=== PATIENT | female | born 1930 | race Caucasian/White ===

== ENCOUNTER 2016-10-18 11:16 | Observation (INO) | payer OTHER ==
[2016-10-18] VITALS (10 sets, daily range): BP systolic 151–202; BP diastolic 74–101; PULSE 63–94; RESP 14–26; TEMP 97.5–99.5; O2SAT 95–99
[~2016-10-18] VITALS: Ht 165.1 cm; Wt 83.0 kg
[~2016-10-18 11:16] MED LIST: EFFE37.5 PO; HUMA100I SQ; HYDR25TA35 PO; LANTINJ SQ; LEVIMERE SQ; LISI-363 PO; METO50TA PO; ULTR50TA PO; XANA0.5T PO
[2016-10-18] MEDS ORDERED: TETANUS/DIPHTHERIA TOXOID ADULT 0.5 ML VIAL IM ONE (11:45)
[2016-10-18] MEDS ORDERED: ACETAMINOPHEN 325 MG TAB PO ONE (12:00)
[2016-10-18 12:10] LABS: AUTOMATED NEUTROPHIL # 6.8 TH/MM3 (1.8-7.7); BASOPHIL % 0.5 % (0.0-2.0); EOSINOPHIL # 0.1 TH/MM3 (0-0.4); EOSINOPHIL % 1.5 % (0.0-4.0); HEMATOCRIT 36.8 % (35.0-46.0); HEMO FLAGS DIFF FINAL; LYMPH % 9.9 % (9.0-44.0); LYMPHOCYTE # 0.8 TH/MM3 (1.0-4.8); MEAN CELL VOLUME 88.1 FL (80.0-100.0); MEAN CORPUSCULAR HEMOGLOBIN 29.3 PG (27.0-34.0); MEAN CORPUSCULAR HGB CONC 33.2 % (32.0-36.0); MONO % 9.2 % (0.0-8.0); NEUT % 78.9 % (16.0-70.0); PLATELET COUNT 177 TH/MM3 (150-450); RED BLOOD COUNT 4.17 MIL/MM3 (4.00-5.30); RED CELL DISTRIBUTION WIDTH 14.7 % (11.6-17.2); WHITE BLOOD COUNT 8.6 TH/MM3 (4.0-11.0)
[2016-10-18 12:19] LABS: APTT (PATIENT) 25.9 SEC (24.3-30.1); PROTHROMBIN TIME - PATIENT 10.5 SEC (9.8-11.6)
--- NOTE | 2016-10-18 12:33 | RADRPT ---
EXAM DATE/TIME: 10/18/2016 12:09 [facility] COMPARISON: PELVIS AP ONLY, January 13, 2015, 12:08. INDICATIONS : Fell this morning. MEDICAL HISTORY : None. SURGICAL HISTORY : None. ENCOUNTER: Initial ACUITY: 1 day PAIN SCORE: 0/10 LOCATION: Bilateral pelvis FINDINGS: A single frontal view of the pelvis demonstrates no evidence of fracture. The bony pelvic ring is in tact. Bony mineralization is normal. The soft tissues are intact. CONCLUSION: Unremarkable examination of the pelvis. Prominent arthritis of both hips. Juan Camejo MD on October 18, 2016 at 12:31 Board Certified Radiologist. This report was verified electronically.
[2016-10-18 12:47] LABS: ALT (GPT) 26 U/L (10-53)
--- NOTE | 2016-10-18 12:47 | RADRPT ---
EXAM DATE/TIME: 10/18/2016 12:28 [facility] COMPARISON: No previous studies available for comparison. INDICATIONS : Fall. RADIATION DOSE: 56.35 CTDIvol (mGy) MEDICAL HISTORY : Hypertension. Carcinoma, rectal. Cardiovascular disease SURGICAL HISTORY : Cholecystectomy. Appendectomy.Hysterectomy. ENCOUNTER: Initial ACUITY: 1 day PAIN SCALE: 0/10 LOCATION: cranial TECHNIQUE: Multiple contiguous axial images were obtained of the head. Using automated exposure control and adj ustment of the mA and/or kV according to patient size, radiation dose was kept as low as reasonably a chievable to obtain optimal diagnostic quality images. DICOM format image data is available electro nically for review and comparison. FINDINGS: CEREBRUM: The ventricles are normal for age. No evidence of midline shift, mass lesion, hemorrhage or acute in farction. No extra-axial fluid collections are seen. POSTERIOR FOSSA: The cerebellum and brainstem are intact. The 4th ventricle is midline. The cerebellopontine angle i s unremarkable. EXTRACRANIAL: The visualized portion of the orbits is intact. SKULL: The calvaria is intact. No evidence of skull fracture. CONCLUSION: Normal examination. Juan Camejo MD on October 18, 2016 at 12:45 Board Certified Radiologist. This report was verified electronically.
[2016-10-18 12:48] LABS: ANION GAP 8 MEQ/L (5-15); AST (GOT) 36 U/L (15-37); BICARBONATE 25.2 MEQ/L (21.0-32.0); BLOOD UREA NITROGEN 43 MG/DL (7-18); CHLORIDE 105 MEQ/L (98-107); GLOMERULAR FILTRATION RATE 35 ML/MIN (>89); MAGNESIUM 2.1 MG/DL (1.5-2.5); POTASSIUM 4.5 MEQ/L (3.5-5.1); SODIUM (NA) 138 MEQ/L (136-145)
--- NOTE | 2016-10-18 12:48 | RADRPT ---
EXAM DATE/TIME: 10/18/2016 12:15 [facility] COMPARISON: No previous studies available for comparison. INDICATIONS : Wrist pain. MEDICAL HISTORY : None. SURGICAL HISTORY : None. ENCOUNTER: Initial ACUITY: 1 day PAIN SCORE: 10/10 LOCATION: Right wrist FINDINGS: Four view examination of the right wrist demonstrates there is mild osteoarthritis of first carpometa carpal joint. There is no acute fracture. There is atherosclerotic disease. Distal radius is intac t. CONCLUSION: Osteoarthritis without acute fracture. Juan Camejo MD on October 18, 2016 at 12:36 Board Certified Radiologist. This report was verified electronically.
--- NOTE | 2016-10-18 12:51 | RADRPT ---
EXAM DATE/TIME: 10/18/2016 12:23 [facility] COMPARISON: CHEST SINGLE AP, January 13, 2015, 12:10. INDICATIONS : Fell this morning. MEDICAL HISTORY : diabetes, high blood pressure SURGICAL HISTORY : coronary artery stents ENCOUNTER: Initial ACUITY: 1 day PAIN SCORE: 0/10 LOCATION: Bilateral chest FINDINGS: A single view of the chest demonstrates the lungs to be symmetrically aerated without evidence of mas s, infiltrate or effusion. The cardiomediastinal contours are unremarkable. Osseous structures are intact. CONCLUSION: No acute disease. Kenji Mcnair MD on October 18, 2016 at 12:50 Board Certified Radiologist. This report was verified electronically.
[2016-10-18 12:57] LABS: ALKALINE PHOSPHATASE 80 U/L (45-117); TOTAL BILIRUBIN ADULT 0.3 MG/DL (0.2-1.0)
[2016-10-18] MEDS ORDERED: SODIUM CHLOR 0.9% 1000 ML INJ 1,000 ML IV SCH (12:57)
[2016-10-18 13:17] LABS: BLOOD, URINE NEG (NEG); GLUCOSE,URINE 300 mg/dL (NEG); KETONE, URINE NEG (NEG); MUCUS URINE FEW /lpf (OCC); NITRITE,URINE NEG (NEG); SQUAMOUS EPITHELIAL CELL URINE <1 /hpf (0-5); URINE COLOR LIGHT-YELLOW (YELLW/STRAW)
[2016-10-18 13:18] LABS: COMMENT (UR) CATH-CULT NOT IND; CULTURE IF INDICATED CATH CULTURE NOT IND
--- NOTE | 2016-10-18 13:23 | PD ---
HPI Chief Complaint: Fall Time Seen by Provider: 13:16 Travel History International Travel<30 days: No Contact w/Intl Traveler<30days: No Traveled to known affect area: No History of Present Illness HPI 86-year-old female that presents to the ED for evaluation of fall. Patient had a fall possibly this morning or last night. Patient is not really sure how she fell. She was not able to get up on her own and unclear how long she was on the floor. A friend of hers went to her house and was able to get her in the bed and she called the ambulance. Per friend as well as the ambulance she was somewhat altered and she continued to talk about his mother asked if she was still present. She also didn't seem to know where she was at. She does appear to be slightly altered but she is able to answer questions very well to me. She does ask about her mother on occasion. Her only complaint is of right arm pain. She does have bruising and swelling. Friend and patient herself tells me that she's following a couple times before and she always braces the arm. She is up-to-date with her vaccinations. She follows with Dr. Carbone and actually has some help at home but per friend this is the first time she's been altered and she's never seen her like this before. She is always very sharp and talkative. She is concerned. She has no family in the area as her son is currently in [place] visiting a family member. She states that her pain is 7 out of 10. She also complains of dry mouth. She has not taken any of her medications today and she does have a history of diabetes. Unclear head injury or LOC as patient does not really know how she fell. Per friend she does have a week left knee for which she is following Dr. Johnston for possible surgery. [facility] Past Medical History Arthritis: No Asthma: No Autoimmune Disease: No Blood Disorders: No Anxiety: Yes Depression: Yes Heart Rhythm Problems: No Cancer: Yes (RECTAL; IN REMISSION OF SPRING 2011) Cardiovascular Problems: Yes High Cholesterol: Yes Chemotherapy: Yes (january 2009) Chest Pain: Yes Congestive Heart Failure: No COPD: No Cerebrovascular Accident: No Diabetes: Yes Patient Takes Glucophage: No Diminished Hearing: No Endocrine: No GERD: No Glaucoma: No Genitourinary: No Headaches: No Hepatitis: No Hiatal Hernia: No Hypertension: Yes Immune Disorder: No Implanted Vascular Access Dvce: No Kidney Stones: No Musculoskeletal: No Neurologic: No Psychiatric: Yes Reproductive: No Respiratory: Yes Migraines: No Myocardial Infarction: No Radiation Therapy: Yes (LAST 02/08) Renal Failure: No Seizures: No Sickle Cell Disease: No Sleep Apnea: No Thyroid Disease: No Ulcer: No Menopausal: Yes : 1 Para: 1 Past Surgical History Abdominal Surgery: Yes (HYSTERECTOMY) AICD: No Appendectomy: Yes Arteriovenous Shunt: No Body Medical Devices: [employer] [place] Cardiac Surgery: Yes (STENT PLACEMENT) Cholecystectomy: Yes Coronary Stent: Yes (X4, LAST ONE 2004) Ear Surgery: No Endocrine Surgery: No Eye Surgery: No Genitourinary Surgery: No Gynecologic Surgery: No Hysterectomy: Yes Insulin Pump: No Joint Replacement: No Neurologic Surgery: No Oral Surgery: No Pacemaker: No Thoracic Surgery: No Tonsillectomy: Yes Other Surgery: Yes Social History Alcohol Use: No Tobacco Use: No Substance Use: No Allergies-Medications (Allergen,Severity, Reaction): Coded Allergies: Penicillin (Verified Allergy, Severe, UNKNOWN, 09/17/15) Sulfa (Verified Allergy, Severe, UNKNOWN, 09/17/15) Reported Meds & Prescriptions Reported Meds & Active Scripts Active Reported Magox 400 (Magnesium Oxide) 400 Mg Tablet 400 Mg PO DAILY Baclofen 10 Mg Tab 10 Mg PO DAILY PRN Amlodipine (Amlodipine Besylate) 10 Mg Tab 10 Mg PO DAILY Venlafaxine ER 24 HR (Venlafaxine HCl) 37.5 Mg Cap 37.5 Mg PO DAILY Tramadol (Tramadol HCl) 50 Mg Tab 50 Mg PO Q6H PRN Lisinopril 20 Mg Tab 20 Mg PO DAILY Lantus Solostar Pen Inj (Insulin Glargine) 300 Unit/3 Ml Pen 40 Units SQ HS Humalog Inj (Insulin Human Lispro) 1,000 Unit/10 Ml Vial Unknown Dose SQ TIDAC SLIDING SCALE Hydralazine HCl 25 Mg Tablet 25 Mg PO TID Xanax (Alprazolam) 0.25 Mg Tab 0.25 Mg PO TID PRN Review of Systems Except as stated in HPI: all other systems reviewed are Neg Physical Exam Narrative GENERAL: SKIN: Warm and dry. Patient does have significant bruising to the right arm as well as a skin tear to the left arm. Skin there is about 3 cm and not actively bleeding. HEAD: Atraumatic. Normocephalic. EYES: Pupils equal and round 4mms reactive to light and accomodation. No scleral icterus. No injection or drainage. ENT: No nasal bleeding or discharge. Mucous membranes pink and moist. Tongue is midline. No uvula deviation. NECK: Trachea midline. No JVD. CARDIOVASCULAR: Regular rate and rhythm. No murmurs, S3, S4. RESPIRATORY: No accessory muscle use. Clear to auscultation. Breath sounds equal bilaterally. GASTROINTESTINAL: Abdomen soft, non-tender, nondistended. Hepatic and splenic margins not palpable. MUSCULOSKELETAL: Extremities without clubbing, cyanosis, or edema. No obvious deformities. Full range of motion of the upper and lower extremities bilaterally. 2+ pulses bilaterally. NEUROLOGICAL: Awake and alert and oriented x 4. No obvious cranial nerve deficits. Motor grossly within normal limits. Five out of 5 muscle strength in the arms and legs. Normal speech. PSYCHIATRIC: Appropriate mood and affect; insight and judgment normal. Data Data Last Documented VS Vital Signs Date Time Temp Pulse Resp B/P Pulse Ox O2 Delivery O2 Flow Rate FiO2 10/18/16 13:25 64 16 186/74 96 Room Air 10/18/16 11:38 99.5 Orders Electrocardiogram (10/18/16 11:32) Complete Blood Count With Diff (10/18/16 11:32) Comprehensive Metabolic Panel (10/18/16 11:32) Troponin I (10/18/16 11:32) Prothrombin Time / Inr (Pt) (10/18/16 11:32) Act Partial Throm Time (Ptt) (10/18/16 11:32) Urinalysis - C+S If Indicated (10/18/16 11:32) Magnesium (Mg) (10/18/16 11:32) Thyroid Stimulating Hormone (10/18/16 11:32) Chest, Single Ap (10/18/16 11:32) Ct Brain W/O Iv Contrast(Rout) (10/18/16 11:32) Iv Access Insert/Monitor (10/18/16 11:32) Ecg Monitoring (10/18/16 11:32) Oximetry (10/18/16 11:32) Wrist, Complete (Pta2dgx) (10/18/16 ) Blood Glucose (10/18/16 11:34) Wound Care (10/18/16 11:34) Pelvis, Ap Only (Routine) (10/18/16 ) Tetanus/Diphtheria Tox Adult (Tetanus/Di (10/18/16 11:45) Acetaminophen (Tylenol) (10/18/16 12:00) Sodium Chlor 0.9% 1000 Ml Inj (Ns 1000 M (10/18/16 12:57) Place In Observation (10/18/16 ) Vital Signs (Adult) Q4H (10/18/16 14:06) Activity Oob With Assistance (10/18/16 14:06) Bedside Glucose ADELA.AC&HS (10/18/16 14:06) Diet Regular Basic (10/18/16 Dinner) Sodium Chlor 0.9% 1000 Ml Inj (Ns 1000 M (10/18/16 15:00) Sodium Chloride 0.9% Flush (Ns Flush) (10/18/16 14:15) Sodium Chloride 0.9% Flush (Ns Flush) (10/18/16 21:00) Ondansetron Inj (Zofran Inj) (10/18/16 14:15) Basic Metabolic Panel (Bmp) (10/19/16 06:00) Complete Blood Count With Diff (10/19/16 06:00) Pt Request For Service (10/18/16 14:06) Scd Bilateral/Knee High ADELA.BID (10/18/16 14:06) Naloxone Inj (Narcan Inj) (10/18/16 14:15) Docusate Sodium-Senna (Mera-Colace) (10/18/16 21:00) Magnesium Hydroxide Liq (Milk Of Magnesi (10/18/16 14:15) Sennosides (Senokot) (10/18/16 14:15) Bisacodyl Supp (Dulcolax Supp) (10/18/16 14:15) Lactulose Liq (Lactulose Liq) (10/18/16 14:15) Admit Order (Ed Use Only) (10/18/16 14:06) Labs Laboratory Tests Test 10/18/16 10/18/16 11:54 13:00 White Blood Count 8.6 TH/MM3 Red Blood Count 4.17 MIL/MM3 Hemoglobin 12.2 GM/DL Hematocrit 36.8 % Mean Corpuscular Volume 88.1 FL Mean Corpuscular Hemoglobin 29.3 PG Mean Corpuscular Hemoglobin 33.2 % Concent Red Cell Distribution Width 14.7 % Platelet Count 177 TH/MM3 Mean Platelet Volume 9.5 FL Neutrophils (%) (Auto) 78.9 % Lymphocytes (%) (Auto) 9.9 % Monocytes (%) (Auto) 9.2 % Eosinophils (%) (Auto) 1.5 % Basophils (%) (Auto) 0.5 % Neutrophils # (Auto) 6.8 TH/MM3 Lymphocytes # (Auto) 0.8 TH/MM3 Monocytes # (Auto) 0.8 TH/MM3 Eosinophils # (Auto) 0.1 TH/MM3 Basophils # (Auto) 0.0 TH/MM3 CBC Comment DIFF FINAL Differential Comment Prothrombin Time 10.5 SEC Prothromb Time International 1.0 RATIO Ratio Activated Partial 25.9 SEC Thromboplast Time Sodium Level 138 MEQ/L Potassium Level 4.5 MEQ/L Chloride Level 105 MEQ/L Carbon Dioxide Level 25.2 MEQ/L Anion Gap 8 MEQ/L Blood Urea Nitrogen 43 MG/DL Creatinine 1.43 MG/DL Estimat Glomerular Filtration 35 ML/MIN Rate Random Glucose 266 MG/DL Calcium Level 9.0 MG/DL Magnesium Level 2.1 MG/DL Total Bilirubin 0.3 MG/DL Aspartate Amino Transf 36 U/L (AST/SGOT) Alanine Aminotransferase 26 U/L (ALT/SGPT) Alkaline Phosphatase 80 U/L Troponin I LESS THAN 0.02 NG/ML Total Protein 7.4 GM/DL Albumin 3.5 GM/DL Thyroid Stimulating Hormone 0.657 uIU/ML 3rd Gen Urine Color LIGHT-YELLOW Urine Turbidity CLEAR Urine pH 6.0 Urine Specific [place] 1.019 Urine Protein TRACE mg/dL Urine Glucose (UA) 300 mg/dL Urine Ketones NEG mg/dL Urine Occult Blood NEG Urine Nitrite NEG Urine Bilirubin NEG Urine Urobilinogen LESS THAN 2.0 MG/DL Urine Leukocyte Esterase NEG Urine RBC LESS THAN 1 /hpf Urine WBC LESS THAN 1 /hpf Urine Squamous Epithelial <1 /hpf Cells Urine Mucus FEW /lpf Microscopic Urinalysis Comment CATH-CULT NOT IND MDM Medical Decision Making Medical Screen Exam Complete: Yes Emergency Medical Condition: Yes Medical Record Reviewed: Yes Interpretation(s) Last Impressions Head CT 10/18/16 1132 Signed Impressions: Service Date/Time: Tuesday, October 18, 2016 12:28 - CONCLUSION: Normal examination. Juan Camejo MD Chest X-Ray 10/18/16 1132 Signed Impressions: Service Date/Time: Tuesday, October 18, 2016 12:23 - CONCLUSION: No acute disease. Kenji Mcnair MD Wrist X-Ray 10/18/16 0000 Signed Impressions: Service Date/Time: Tuesday, October 18, 2016 12:15 - CONCLUSION: Osteoarthritis without acute fracture. Juan Camejo MD Pelvis X-Ray 10/18/16 0000 Signed Impressions: Service Date/Time: Tuesday, October 18, 2016 12:09 - CONCLUSION: Unremarkable examination of the pelvis. Prominent arthritis of both hips. Juan Camejo MD EKG shows no sign of acute disease troponin and CK negative CBC & BMP Diagram 10/18/16 11:54 Differential Diagnosis Fall versus altered mental status versus head injury versus skin tear versus fracture versus electrolyte abnormality versus kidney injury Narrative Course 86-year-old female that presents to the ED for evaluation of fall. Patient was properly examined and was found to have signs and symptoms consistent appears to be fall and altered mental status. My exam she appears to be somewhat back to baseline. Unclear as to how long she was on the floor she doesn't remember what happened or how she fell but she does tell me that she does no believe she lost consciousness but again she was out there so questionable. She has never been here for any altered mental status before. She is for the most part very sharp per friend who is here with her and takes care of her daily. She denies any pain other than the right wrist. Ice discussed the case with my attending Dr. Hughes who is in agreement with labs and imaging and likely admission for altered mental status and fall. Labs essentially came unremarkable other than for possible acute kidney injury with a BUN elevated compared to the previous. This could be old as or last BUN was done in 2010. She does appear to be dry on exam however. Again we do not know what actually happened when she fell. She was not able to get up on her own. And she was altered. Because of this with the recommendation is for observation for altered mental status and further workup as well as rehydration. Patient and family are in agreement with this. HEPAS was patient is [employer]. Dr Betts agrees to admission. Diagnosis Primary Impression: Altered mental status, unspecified Admitting Information Admitting Physician Requests: Observation Abdulkadir Arceo Oct 18, 2016 13:23
[2016-10-18] MEDS ORDERED: SENNOSIDES 8.6 MG TAB PO PRN (14:15)
[2016-10-18] MEDS ORDERED: BISACODYL 10 MG SUPP RECTAL PRN (14:15)
[2016-10-18] MEDS ORDERED: LACTULOSE SYRUP 20 GM/30 ML CUP PO PRN (14:15)
[2016-10-18] MEDS ORDERED: MAGNESIUM HYDROXIDE SUSP 30 ML CUP PO PRN (14:15)
[2016-10-18] MEDS ORDERED: ONDANSETRON HCL 4 MG/2 ML VIAL IVP PRN (14:15)
[2016-10-18] MEDS ORDERED: SODIUM CHLORIDE 0.9% FLUSH 10 ML FLUSH IV FLUSH PRN (14:15)
[2016-10-18] MEDS ORDERED: NALOXONE HCL 0.4 MG/ML AMP IV PRN (14:15)
[2016-10-18] MEDS ORDERED: HUMALOG SQ (14:51)
[2016-10-18] MEDS ORDERED: HYDR-3799 PO (14:51)
[2016-10-18] MEDS ORDERED: ALPR.25 PO (14:51)
[2016-10-18] MEDS ORDERED: BACL10TA PO (14:55)
[2016-10-18] MEDS ORDERED: VENL37.595 PO (14:55)
[2016-10-18] MEDS ORDERED: TRAM50TA PO (14:55)
[2016-10-18] MEDS ORDERED: LISI-515 PO (14:55)
[2016-10-18] MEDS ORDERED: MAGO400T2 PO (14:55)
[2016-10-18] MEDS ORDERED: LANTINJ SQ (14:55)
[2016-10-18] MEDS ORDERED: AMLO10TA2 PO (14:55)
[2016-10-18] MEDS: SODIUM CHLOR 0.9% 1000 ML INJ 1,000 ML IV SCH (15:00)
--- NOTE | 2016-10-18 16:05 | HHI.HP ---
[facility] Service [facility] Primary Care Physician Pavithra Carbone MD Admission Diagnosis altered mental status, fall, kidney injury Diagnoses: Travel History International Travel<30 Days: No Contact w/Intl Traveler <30 Da: No Traveled to Known Affected Are: No History of Present Illness Mrs. Arvizu is an 86-year-old female. She had a last night while she was in her laundry room. She was found by friends and noted to be confused (did not know where she wasn't did not recognize friends). It is uncertain whether she had confusion prior to the fall or secondary to the fall. She does remember falling and feels that she tripped but she doesn't wear anything after the fall. She cannot remember striking her head. At baseline she lives alone at home and reports previous falls. There may be some sundowning as patient reports that she frequently is visited by members of her family and she knows this is not actually happening but it happens almost nightly. She has no headache and cannot recall striking her head but a concussion could've caused some confusion also. At this point she feels at baseline and I do not notice a severe cognitive deficit to determine from believing this is her baseline. She has a past medical history diabetes mellitus type 2, hypertension , hyperlipidemia and at baseline walks with a walker. She's had a past rectal surgery for rectal cancer. She does not drink alcohol did not start any narcotic or sedative medications recently. At this point she has not yet ambulated on her own and will need a physical therapy evaluation. She has been encouraged by her primary physician, family, and friends to consider living in an assisted living facility. I think this would be a good idea, however, patient has no interest in this at this time. Imaging of the brain and tender points are negative for fracture. Her only complaint when seen in his right wrist pain. Review of Systems Constitutional: DENIES: Fatigue, Fever, Chills Eyes: DENIES: Blurred vision, Diplopia Respiratory: DENIES: Cough, Wheezing, Sputum production Cardiovascular: DENIES: Chest pain, Palpitations, Syncope Gastrointestinal: DENIES: Abdominal pain, Black stools, Bloody stools Musculoskeletal: COMPLAINS OF: Joint pain, DENIES: Muscle aches, Stiffness Integumentary: DENIES: Abnormal pigmentation Hematologic/lymphatic: DENIES: Bruising Immunologic/allergic: DENIES: Eczema Neurologic: DENIES: Abnormal gait, Headache Psychiatric: DENIES: Anxiety, Confusion Past Family Social History Past Medical History Diabetes mellitus type 2 Hypertension Hyperlipidemia Chronic weakness History of Rectal cancer Past Surgical History Rectal surgery for cancer Allergies: Coded Allergies: Penicillin (Verified Allergy, Severe, UNKNOWN, 09/17/15) Sulfa (Verified Allergy, Severe, UNKNOWN, 09/17/15) Active Ordered Medications Reported Meds & Active Scripts Active Reported Magox 400 (Magnesium Oxide) 400 Mg Tablet 400 Mg PO DAILY Baclofen 10 Mg Tab 10 Mg PO DAILY PRN Amlodipine (Amlodipine Besylate) 10 Mg Tab 10 Mg PO DAILY Venlafaxine ER 24 HR (Venlafaxine HCl) 37.5 Mg Cap 37.5 Mg PO DAILY Tramadol (Tramadol HCl) 50 Mg Tab 50 Mg PO Q6H PRN Lisinopril 20 Mg Tab 20 Mg PO DAILY Lantus Solostar Pen Inj (Insulin Glargine) 300 Unit/3 Ml Pen 40 Units SQ HS Humalog Inj (Insulin Human Lispro) 1,000 Unit/10 Ml Vial Unknown Dose SQ TIDAC SLIDING SCALE Hydralazine HCl 25 Mg Tablet 25 Mg PO TID Xanax (Alprazolam) 0.25 Mg Tab 0.25 Mg PO TID PRN Family History Bone cancer and father Diabetes mellitus mother Breast cancer in sister Social History No smoking No alcohol use No drug abuse Physical Exam Vital Signs Vital Signs Date Time Temp Pulse Resp B/P Pulse Ox O2 Delivery O2 Flow Rate FiO2 10/18/16 14:35 80 26 10/18/16 13:25 64 16 186/74 96 Room Air 10/18/16 12:51 92 18 202/86 10/18/16 12:46 82 16 190/84 96 Room Air 10/18/16 11:45 81 18 Room Air 10/18/16 11:38 99.5 81 16 151/101 97 Physical Exam GENERAL: NAD, A&Ox3 HEAD: Normocephalic. NECK: Supple, trachea midline. No lymphadenopathy. EYES: No scleral icterus. No injection or drainage. CARDIOVASCULAR: Regular rate and rhythm without murmurs, gallops, or rubs. RESPIRATORY: Breath sounds equal bilaterally. No accessory muscle use. GASTROINTESTINAL: Abdomen soft, non-tender, nondistended. MUSCULOSKELETAL: No cyanosis, or edema. Tenderness at right wrist SKIN: Warm and dry. NEURO: No focal neurological deficitis. Laboratory Laboratory Tests Test 10/18/16 10/18/16 11:54 13:00 White Blood Count 8.6 Red Blood Count 4.17 Hemoglobin 12.2 Hematocrit 36.8 Mean Corpuscular Volume 88.1 Mean Corpuscular Hemoglobin 29.3 Mean Corpuscular Hemoglobin 33.2 Concent Red Cell Distribution Width 14.7 Platelet Count 177 Mean Platelet Volume 9.5 Neutrophils (%) (Auto) 78.9 Lymphocytes (%) (Auto) 9.9 Monocytes (%) (Auto) 9.2 Eosinophils (%) (Auto) 1.5 Basophils (%) (Auto) 0.5 Neutrophils # (Auto) 6.8 Lymphocytes # (Auto) 0.8 Monocytes # (Auto) 0.8 Eosinophils # (Auto) 0.1 Basophils # (Auto) 0.0 CBC Comment DIFF FINAL Differential Comment Prothrombin Time 10.5 Prothromb Time International 1.0 Ratio Activated Partial 25.9 Thromboplast Time Sodium Level 138 Potassium Level 4.5 Chloride Level 105 Carbon Dioxide Level 25.2 Anion Gap 8 Blood Urea Nitrogen 43 Creatinine 1.43 Estimat Glomerular Filtration 35 Rate Random Glucose 266 Calcium Level 9.0 Magnesium Level 2.1 Total Bilirubin 0.3 Aspartate Amino Transf 36 (AST/SGOT) Alanine Aminotransferase 26 (ALT/SGPT) Alkaline Phosphatase 80 Troponin I LESS THAN 0.02 Total Protein 7.4 Albumin 3.5 Thyroid Stimulating Hormone 0.657 3rd Gen Urine Color LIGHT-YELLOW Urine Turbidity CLEAR Urine pH 6.0 Urine Specific [place] 1.019 Urine Protein TRACE Urine Glucose (UA) 300 Urine Ketones NEG Urine Occult Blood NEG Urine Nitrite NEG Urine Bilirubin NEG Urine Urobilinogen LESS THAN 2.0 Urine Leukocyte Esterase NEG Urine RBC LESS THAN 1 Urine WBC LESS THAN 1 Urine Squamous Epithelial <1 Cells Urine Mucus FEW Microscopic Urinalysis Comment CATH-CULT NOT IND Result Diagram: 10/18/16 1154 10/18/16 1154 Assessment and Plan Problem List: (1) Concussion ICD Code: S06.0X9A Status: Acute (2) Weakness ICD Code: R53.1 Status: Acute (3) Hypertension ICD Code: I10 Status: Acute (4) Fall ICD Code: W19.XXXA Status: Acute (5) Diabetes mellitus type 2 in nonobese ICD Code: E11.9 Status: Acute (6) Altered mental status, unspecified ICD Code: R41.82 Status: Acute (7) Hyperlipidemia associated with type 2 diabetes mellitus ICD Code: E11.69 Status: Acute Assessment and Plan Assessment and plan 86-year-old female admitted with confusion after having fallen at home, without fractures. Altered mental status Possible concussion Currently resolved Monitor for recurrence Fall Global weakness at baseline Physical therapy evaluation Diabetes mellitus type 2 Follow blood sugars Insulin sliding scale Diabetic diet Hyperlipidemia Continue statin Followed as an outpatient Hypertension No change to baseline treatments Monitor blood pressures DVT prophylaxis SCDs given recent fall Discharge planning Patient plans discharge to home She is not currently in a state where she is safe for home discharge yet Will need physical therapy evaluation prior to consideration for discharge Josh Betts MD Oct 18, 2016 16:05
[2016-10-18] MEDS ORDERED: DEXTROSE 50% IN WATER 50 ML VIAL(D50) IV PRN (16:15)
[2016-10-18] MEDS ORDERED: GLUCAGON 1 MG/ML VIAL OTHER PRN (16:15)
[2016-10-18] MEDS ORDERED: BACLOFEN 10 MG TAB PO PRN (16:15)
[2016-10-18] MEDS: hydrALAZINE HCL 25 MG TAB PO SCH (18:09)
[2016-10-18] MEDS: traMADol HCL 50 MG TAB PO PRN (18:10)
[2016-10-18] MEDS: DOCUSATE SODIUM 50 MG/SENNA 8.6 MG TAB PO SCH (21:00)
[2016-10-18] MEDS ORDERED: INSULIN DETEMIR 100 UNITS/ML VIAL SQ SCH (21:00)
[2016-10-18] MEDS: SODIUM CHLORIDE 0.9% FLUSH 10 ML FLUSH IV FLUSH SCH (22:04)
[2016-10-18] MEDS: INSULIN ASPART SUPPLEMENTAL SCALE SQ SCH (22:23)
[2016-10-19] VITALS (11 sets, daily range): BP systolic 163–209; BP diastolic 79–93; PULSE 83–102; RESP 18–20; TEMP 97.5–98.5; O2SAT 94–98
[2016-10-19] MEDS: SODIUM CHLOR 0.9% 1000 ML INJ 1,000 ML IV SCH (00:22)
[2016-10-19] MEDS: traMADol HCL 50 MG TAB PO PRN ×2 (00:52→08:17)
[2016-10-19] MEDS: INSULIN ASPART SUPPLEMENTAL SCALE SQ SCH ×3 (05:30→17:08)
[2016-10-19] MEDS: hydrALAZINE HCL 25 MG TAB PO SCH (08:17)
[2016-10-19] MEDS: DOCUSATE SODIUM 50 MG/SENNA 8.6 MG TAB PO SCH (08:18)
[2016-10-19] MEDS: SODIUM CHLORIDE 0.9% FLUSH 10 ML FLUSH IV FLUSH SCH (08:19)
[2016-10-19 08:32] LABS: BASOPHIL % 0.6 % (0.0-2.0); EOSINOPHIL # 0.2 TH/MM3 (0-0.4); EOSINOPHIL % 2.1 % (0.0-4.0); HEMATOCRIT 37.2 % (35.0-46.0); HEMO FLAGS DIFF FINAL; LYMPH % 12.7 % (9.0-44.0); MEAN CELL VOLUME 87.1 FL (80.0-100.0); MEAN CORPUSCULAR HEMOGLOBIN 28.6 PG (27.0-34.0); MEAN CORPUSCULAR HGB CONC 32.8 % (32.0-36.0); MONO % 8.5 % (0.0-8.0); NEUT % 76.1 % (16.0-70.0); PLATELET COUNT 166 TH/MM3 (150-450); RED BLOOD COUNT 4.27 MIL/MM3 (4.00-5.30); RED CELL DISTRIBUTION WIDTH 14.5 % (11.6-17.2); WHITE BLOOD COUNT 7.9 TH/MM3 (4.0-11.0)
[2016-10-19] MEDS ORDERED: MAGNESIUM OXIDE 400 MG TAB PO SCH (09:00)
[2016-10-19] MEDS ORDERED: LISINOPRIL 20 MG TAB PO SCH (09:00)
[2016-10-19] MEDS ORDERED: VENLAFAXINE HCL XR 37.5 MG CAP PO SCH (09:00)
[2016-10-19 09:05] LABS: BICARBONATE 22.9 MEQ/L (21.0-32.0)
--- NOTE | 2016-10-19 10:09 | HHI.PR ---
Subjective Remarks elevated BP . Patient is back to her baseline mentation. She is awake and alert and oriented X4. Says she fell she has 1 brother home and treatment. Says she has friends this checking her time. Also the daughter in [place] nasal subjective murmur. She denies any headaches, change in vision, weakness. No nausea, vomiting. Abdomen loose bowel movements. 2 denies fever or chills. No abdominal pain. She wants to go home. Was evaluated by PT and OT recommends as outpatient Objective Vitals Vital Signs Date Time Temp Pulse Resp B/P Pulse Ox O2 Delivery O2 Flow Rate FiO2 10/19/16 08:30 98.4 102 18 209/85 97 193/93 10/19/16 04:06 83 10/19/16 04:00 98.5 97 20 177/83 98 10/19/16 01:56 16 10/19/16 00:26 87 10/19/16 00:00 97.7 89 20 178/81 96 10/18/16 20:10 93 10/18/16 20:00 97.5 94 20 172/81 95 10/18/16 17:30 97.5 63 20 200/86 97 10/18/16 16:08 98.6 85 18 157/74 99 10/18/16 16:06 75 14 174/77 99 Room Air 10/18/16 14:35 80 26 10/18/16 13:25 64 16 186/74 96 Room Air 10/18/16 12:51 92 18 202/86 10/18/16 12:46 82 16 190/84 96 Room Air 10/18/16 11:45 81 18 Room Air 10/18/16 11:38 99.5 81 16 151/101 97 I/O 10/18/16 10/18/16 10/18/16 10/19/16 10/19/16 10/19/16 07:00 15:00 23:00 07:00 15:00 23:00 Intake Total 480 ml Balance 480 ml Intake Oral 480 ml # Voids 3 3 # Bowel Movements 1 Result Diagram: 10/19/16 0803 10/19/16 0803 Imaging Last Impressions Head CT 10/18/16 1132 Signed Impressions: Service Date/Time: Tuesday, October 18, 2016 12:28 - CONCLUSION: Normal examination. Juan Camejo MD Chest X-Ray 10/18/16 1132 Signed Impressions: Service Date/Time: Tuesday, October 18, 2016 12:23 - CONCLUSION: No acute disease. Kenji Mcnair MD Wrist X-Ray 10/18/16 0000 Signed Impressions: Service Date/Time: Tuesday, October 18, 2016 12:15 - CONCLUSION: Osteoarthritis without acute fracture. Juan Camejo MD Pelvis X-Ray 10/18/16 0000 Signed Impressions: Service Date/Time: Tuesday, October 18, 2016 12:09 - CONCLUSION: Unremarkable examination of the pelvis. Prominent arthritis of both hips. Juan Camejo MD Objective Remarks GENERAL: Elderly female, well nourished well developed, in NAD CARDIOVASCULAR: Regular rate and rhythm without murmurs, gallops, or rubs. RESPIRATORY: Breath sounds equal bilaterally. No accessory muscle use. GASTROINTESTINAL: Abdomen soft, non-tender, nondistended. MUSCULOSKELETAL: No cyanosis, or edema. Tenderness at right wrist SKIN: Warm and dry. NEURO: No focal neurological deficits. A/P Problem List: (1) Concussion ICD Code: S06.0X9A Status: Acute (2) Weakness ICD Code: R53.1 Status: Acute (3) Hypertension ICD Code: I10 Status: Acute (4) Fall ICD Code: W19.XXXA Status: Acute (5) Diabetes mellitus type 2 in nonobese ICD Code: E11.9 Status: Acute (6) Altered mental status, unspecified ICD Code: R41.82 Status: Acute (7) Hyperlipidemia associated with type 2 diabetes mellitus ICD Code: E11.69 Status: Acute Assessment and Plan 86-year-old female admitted with confusion after having fallen at home, without fractures. Acute encephalopathy. Altered mental status. Resolved. Mental status back to her baseline. Patient says she tripped on her rug. Possible concussion Currently resolved Monitor for recurrence Fall Global weakness at baseline Physical therapy evaluation Diabetes mellitus type 2 Follow blood sugars Insulin sliding scale Diabetic diet Hyperlipidemia Continue statin Followed as an outpatient Hypertension, uncontrolled Increased lisinopril to 30 mg po daily . Increased hydralazine to 50 mg po bid Monitor blood pressures and adjust meds as need DVT prophylaxis SCDs given recent fall Discussed with the patient, nurse, her daughter, PT and OT Discharge planning Patient improved, she is back to her baseline mentation. Patient plans to discharge to home. PT/OT evaluated patient recommends Home with PT and OT . Patient with elevated BP , increased lisinoprol and hydralazine. Patient to follwo up as oP with her pCP and consultants. Discharge Planning Discharged home in stable condition to have physical therapy , occupational therapy and skilled nursing. Follow-up with PCP and consultants as outpatient Medications per medication reconciliation. Increase lisinopril and hydralazine. Follow-up with her PCP and monitor blood pressure and adjust medications Diet healthy heart diet diabetic diet Activity ad kodi. as tolerated Marija Dunlap MD Oct 19, 2016 10:09
--- NOTE | 2016-10-19 10:11 | HHI.FF ---
Face to Face Verification Diagnosis: (1) Concussion (2) Weakness (3) Hypertension (4) Fall (5) Diabetes mellitus type 2 in nonobese (6) Altered mental status, unspecified (7) Hyperlipidemia associated with type 2 diabetes mellitus (8) Acute encephalopathy Physical Therapy Order: Evaluate and Treat Home Health Nursing Order: Medical education Signs/symptoms of disease process Diabetic education Medication education-adverse effect Nursing assessment with vital signs I have seen patient Olimpia Arvizu on 10/19/16. My clinical findings support the need for the requested home health care services because: Ltd mobility - disease progression I certify that my clinical findings support that this patient is homebound because: Post-op weakness Unsteady gait/balance Marija Dunlap MD Oct 19, 2016 10:11
[2016-10-19] MEDS ORDERED: LISINOPRIL 10 MG TAB PO ONE (10:15)
[2016-10-19] MEDS ORDERED: LISI-515 PO (10:15)
[2016-10-19] MEDS ORDERED: hydrALAZINE HCL 25 MG TAB PO ONE (10:15)
[2016-10-19] MEDS ORDERED: HYDR-3799 PO (10:15)
--- NOTE | 2016-10-19 12:56 | HHI.FF ---
Face to Face Verification Diagnosis: (1) Acute encephalopathy (2) Concussion (3) Weakness (4) Hypertension (5) Fall (6) Diabetes mellitus type 2 in nonobese (7) Altered mental status, unspecified (8) Hyperlipidemia associated with type 2 diabetes mellitus Physical Therapy Order: Evaluate and Treat Occupational Therapy Order: Evaluate and Treat Home Health Nursing Order: Medical education Signs/symptoms of disease process Diabetic education Medication education-adverse effect Nursing assessment with vital signs I have seen patient Olimpia Arvizu on 10/19/16. My clinical findings support the need for the requested home health care services because: Ltd mobility - disease progression Patient has SOB I certify that my clinical findings support that this patient is homebound because: Post-op weakness Unsteady gait/balance Marija Dunlap MD Oct 19, 2016 12:56
[2016-10-19] MEDS ORDERED: LACTCHW3 CHEW (12:57)
[2016-10-19] MEDS ORDERED: LACTOBACILLUS ACIDOPHILUS TAB PO ONE (13:15)
[2016-10-19] MEDS ORDERED: ENALAPRILAT 2.5 MG/2 ML VIAL IV PUSH PRN (18:15)
--- NOTE | 2016-10-19 19:10 | EKG ---
Date Performed: 10/18/2016 Time Performed: 11:47:38 PTAGE: 86 years EKG: Sinus rhythm WITH SINUS ARRHYTHMIA PATTERN CONSISTENT WITH PULMONARY DISEASE LEFT ANTERIOR FASCICULAR BLOCK Likel y no significant change ABNORMAL ECG PREVIOUS TRACING : 10/03/2009 18.09 DOCTOR: Stella Urias Interpretating Date/Time 10/19/2016 19:07:50
[2016-10-19] MEDS ORDERED: hydrALAZINE HCL 50 MG TAB PO SCH (21:00)
[2016-10-19] MEDS ORDERED: LACTOBACILLUS ACIDOPHILUS TAB PO SCH (21:00)
[2016-10-20] MEDS ORDERED: LISINOPRIL 10 MG TAB PO SCH (09:00)
== END 2016-10-19 19:44 | disposition home or self-care (01) ==
LOC: NEPE 11:16 → NEDA 14:09 → HOCB 16:39
PROVIDERS: ADMIT Hospitalist; ATTEND Hospitalist
DX: S06.0X9A Concussion with loss of consciousness of unspecified duration, initial encounter (principal); R41.82 Altered mental status, unspecified; W01.0XXA Fall on same level from slipping, tripping and stumbling without subsequent striking against object, initial encounter; M79.601 Pain in right arm; R68.2 Dry mouth, unspecified; E11.9 Type 2 diabetes mellitus without complications; F41.9 Anxiety disorder, unspecified; F32.9 Major depressive disorder, single episode, unspecified; E78.00 Pure hypercholesterolemia, unspecified; R07.9 Chest pain, unspecified; I10 Essential (primary) hypertension; Z79.4 Long term (current) use of insulin; Z79.899 Other long term (current) drug therapy; M16.0 Bilateral primary osteoarthritis of hip; Z91.81 History of falling; E78.5 Hyperlipidemia, unspecified; R53.1 Weakness; Z85.048 Personal history of other malignant neoplasm of rectum, rectosigmoid junction, and anus; R94.31 Abnormal electrocardiogram [ECG] [EKG]; Z23 Encounter for immunization
CPT/HCPCS: 70450; 71010; 72170; 73110; 80048; 80053; 81001; 82948; 83735; 84443; 84484; 85025; 85610; 85730; 90471; 90714; 93005; 97162; 97167; 99285; G0378; G8987; G8988; J1815; J7030

== ENCOUNTER 2017-02-19 10:56 | Observation (INO) | payer OTHER ==
[~2017-02-19] VITALS: Ht 165.1 cm; Wt 92.7 kg
[~2017-02-19 10:56] MED LIST changes: +ALPR.25 PO; +AMLO10TA2 PO; +BACL10TA PO; -EFFE37.5 PO; -HUMA100I SQ; +HUMALOG SQ; +HYDR-3799 PO; -HYDR25TA35 PO; +LACTCHW3 CHEW; -LISI-363 PO; +LISI-515 PO; +MAGO400T2 PO; -METO50TA PO; +TRAM50TA PO; -ULTR50TA PO; +VENL37.595 PO; -XANA0.5T PO
[2017-02-19 10:58] VITALS: BP 198/85; PULSE 92; RESP 18; TEMP 97.7; O2SAT 96
[2017-02-19] MEDS ORDERED: ACETAMINOPHEN/HYDROcodone 325 MG/5 MG TAB PO ONE (11:30)
[2017-02-19] MEDS ORDERED: ACETAMINOPHEN 325 MG TAB PO ONE (11:30)
--- NOTE | 2017-02-19 11:37 | PD ---
HPI Chief Complaint: Fall Time Seen by Provider: 11:05 Travel History International Travel<30 days: No Contact w/Intl Traveler<30days: No Traveled to known affect area: No History of Present Illness HPI This 86-year-old female complaining of left-sided chest pain. She was walking to her bathroom in the middle of the night. She fell and hit the left side of her chest on a dresser. She has been having left-sided pleuritic chest pain since then. He stopped smoking 30 years ago. She does not have a history of lung disease. She took a tramadol which helped a little bit with the pain. She did not hit her head. She does not take blood thinners PFSH Past Medical History Hx Anticoagulant Therapy: No Arthritis: No Asthma: No Autoimmune Disease: No Blood Disorders: No Anxiety: Yes Depression: Yes Heart Rhythm Problems: No Cancer: Yes (RECTAL; IN REMISSION OF SPRING 2011) Cardiovascular Problems: Yes (STENTS, HTN) High Cholesterol: Yes Chemotherapy: Yes (january 2009) Chest Pain: Yes Congestive Heart Failure: No COPD: No Cerebrovascular Accident: No Diabetes: Yes Patient Takes Glucophage: Yes Diminished Hearing: No Endocrine: No GERD: No Glaucoma: No Genitourinary: No Headaches: No Hepatitis: No Hiatal Hernia: No Hypertension: Yes Immune Disorder: No Implanted Vascular Access Dvce: No Kidney Stones: No Musculoskeletal: No Neurologic: No Psychiatric: Yes Reproductive: No Respiratory: Yes Migraines: No Myocardial Infarction: No Radiation Therapy: Yes (LAST 02/08) Renal Failure: No Seizures: No Sickle Cell Disease: No Sleep Apnea: No Thyroid Disease: No Ulcer: No Tetanus Vaccination: < 5 Years Influenza Vaccination: No ?: Not Menopausal: Yes : 1 Para: 1 Past Surgical History Abdominal Surgery: Yes (HYSTERECTOMY) AICD: No Appendectomy: Yes Arteriovenous Shunt: No Body Medical Devices: [employer] [place] Cardiac Surgery: Yes (STENT PLACEMENT) Cholecystectomy: Yes Coronary Stent: Yes (X4, LAST ONE 2004) Ear Surgery: No Endocrine Surgery: No Eye Surgery: No Genitourinary Surgery: No Gynecologic Surgery: No Hysterectomy: Yes Insulin Pump: No Joint Replacement: No Neurologic Surgery: No Oral Surgery: No Pacemaker: No Thoracic Surgery: No Tonsillectomy: Yes Other Surgery: Yes Social History Alcohol Use: No Tobacco Use: No Substance Use: No Allergies-Medications (Allergen,Severity, Reaction): Coded Allergies: Sulfa (Sulfonamide Antibiotics) (Unverified Allergy, Severe, UNKNOWN, ) penicillin G (Unverified Allergy, Severe, UNKNOWN, 02/19/17) Reported Meds & Prescriptions Reported Meds & Active Scripts Active Lisinopril 20 Mg Tab 30 Mg PO DAILY Hydralazine HCl 25 Mg Tablet 50 Mg PO BID Reported Magox 400 (Magnesium Oxide) 400 Mg Tablet 400 Mg PO DAILY Baclofen 10 Mg Tab 10 Mg PO DAILY PRN Amlodipine (Amlodipine Besylate) 10 Mg Tab 10 Mg PO DAILY Venlafaxine ER 24 HR (Venlafaxine HCl) 37.5 Mg Cap 37.5 Mg PO DAILY Tramadol (Tramadol HCl) 50 Mg Tab 50 Mg PO Q6H PRN Lantus Solostar Pen Inj (Insulin Glargine) 300 Unit/3 Ml Pen 40 Units SQ HS Humalog Inj (Insulin Human Lispro) 1,000 Unit/10 Ml Vial Unknown Dose SQ TIDAC SLIDING SCALE Xanax (Alprazolam) 0.25 Mg Tab 0.25 Mg PO TID PRN Review of Systems General / Constitutional: No: Fever, Chills Eyes: No: Diploplia, Blurred Vision HENT: No: Headaches Cardiovascular: Positive: Chest Pain or Discomfort, No: Syncope, Edema Respiratory: Positive: Shortness of Breath, Pleuritic Pain, No: Hemoptysis Gastrointestinal: No: Nausea, Vomiting Genitourinary: No: Urgency Skin: No Rash, No Itching Neurologic: No: Weakness Endocrine: No: Heat Intolerance, Cold Intolerance Hematologic/Lymphatic: No: Easy Bruising Physical Exam Narrative GENERAL: Well-developed female. She appears uncomfortable with the pain and has trouble moving SKIN: Focused skin assessment warm/dry. HEAD: Atraumatic. Normocephalic. EYES: Pupils equal and round. No scleral icterus. No injection or drainage. ENT: No nasal bleeding or discharge. Mucous membranes pink and moist. NECK: Trachea midline. No JVD. CARDIOVASCULAR: Regular rate and rhythm. No murmur appreciated. RESPIRATORY: No accessory muscle use. Clear to auscultation. Breath sounds equal bilaterally. There is considerable left-sided chest wall tenderness GASTROINTESTINAL: Abdomen soft, non-tender, nondistended. Hepatic and splenic margins not palpable. MUSCULOSKELETAL: No obvious deformities. No clubbing. No cyanosis. No edema. NEUROLOGICAL: Awake and alert. No obvious cranial nerve deficits. Motor grossly within normal limits. Normal speech. PSYCHIATRIC: Appropriate mood and affect; insight and judgment normal. Data Data Last Documented VS Vital Signs Date Time Temp Pulse Resp B/P (MAP) Pulse Ox O2 Delivery O2 Flow Rate FiO2 02/19/17 11:53 20 94 Room Air 02/19/17 10:58 97.7 92 198/85 (122) Orders Orders Ribs, Uni (W/Exp Cxr-Min 3vw) (02/19/17 11:20) Acetamin-Hydrocod 325-5 Mg ([place] 5-325 (02/19/17 11:30) Acetaminophen (Tylenol) (02/19/17 11:30) Complete Blood Count With Diff (02/19/17 12:29) Comprehensive Metabolic Panel (02/19/17 12:29) Prothrombin Time / Inr (Pt) (02/19/17 12:29) Act Partial Throm Time (Ptt) (02/19/17 12:29) Urinalysis - C+S If Indicated (02/19/17 12:29) Sodium Chlor 0.9% 1000 Ml Inj (Ns 1000 M (02/19/17 12:30) MDM Medical Decision Making Medical Screen Exam Complete: Yes Emergency Medical Condition: Yes Medical Record Reviewed: Yes Differential Diagnosis Differential includes chest wall contusion, pneumothorax, rib fracture Narrative Course X-ray shows fractures of ribs 6 through 10. There is no pneumothorax. Patient has been given Lortab and acetaminophen with minimal relief. She is 86 years old and lives alone and generally uses a walker. sHe is not stable for discharge Conner Loera MD Feb 19, 2017 11:37
--- NOTE | 2017-02-19 12:12 | RADRPT ---
EXAM DATE/TIME: 02/19/2017 11:38 [facility] COMPARISON: No previous studies available for comparison. INDICATIONS : Left lower rib pain post fall today. MEDICAL HISTORY : Hypercholesterolemia. Emphysema. Carcinoma, rectal. Chemotherapy.Diabetic. Hypertension. SURGICAL HISTORY : Tonsillectomy. Hysterectomy. Cholecystectomy. Appendectomy. Renal transplant. Cardiac stents x 4. ENCOUNTER: Initial ACUITY: 1 day PAIN SCORE: 10/10 LOCATION: Left lower chest FINDINGS: There are acute fractures involving the lateral aspects of the left sixth, seventh, eighth, ninth, an d 10th ribs. No pneumothorax is noted. The gallbladder is filled with calcified gallstones. Degenerat deuard changes are noted throughout the thoraco-lumbar spine. CONCLUSION: 1. Acute fractures involving the lateral aspects of the left sixth, seventh, eighth, ninth, and 10th ribs. 2. Cholelithiasis. 3. Degenerative changes throughout the thoracolumbar spine. Keron Barker MD on February 19, 2017 at 12:09 Board Certified Radiologist. This report was verified electronically.
[2017-02-19 13:00] VITALS: BP 172/82; PULSE 66; RESP 15; O2SAT 94
[2017-02-19] MEDS ORDERED: ONDANSETRON HCL 4 MG/2 ML VIAL IV PUSH ONE (13:15)
[2017-02-19] MEDS ORDERED: MORPHINE SULFATE 2 MG/ML INJ IV PUSH ONE (13:15)
[2017-02-19] MEDS: SODIUM CHLOR 0.9% 1000 ML INJ 1,000 ML IV SCH (13:20)
[2017-02-19 13:27] LABS: AUTOMATED NEUTROPHIL # 9.3 TH/MM3 (1.8-7.7); BASOPHIL # 0.2 TH/MM3 (0-0.2); BASOPHIL % 1.9 % (0.0-2.0); CHLORIDE 103 MEQ/L (98-107); EOSINOPHIL % 0.4 % (0.0-4.0); HEMATOCRIT 36.6 % (35.0-46.0); HEMO FLAGS DIFF FINAL; LYMPH % 7.8 % (9.0-44.0); LYMPHOCYTE # 0.8 TH/MM3 (1.0-4.8); MEAN CELL VOLUME 86.8 FL (80.0-100.0); MEAN CORPUSCULAR HEMOGLOBIN 29.6 PG (27.0-34.0); MEAN CORPUSCULAR HGB CONC 34.1 % (32.0-36.0); MONO % 4.9 % (0.0-8.0); PLATELET COUNT 164 TH/MM3 (150-450); POTASSIUM 4.6 MEQ/L (3.5-5.1); RED BLOOD COUNT 4.22 MIL/MM3 (4.00-5.30); RED CELL DISTRIBUTION WIDTH 13.6 % (11.6-17.2); SODIUM (NA) 136 MEQ/L (136-145); WHITE BLOOD COUNT 10.8 TH/MM3 (4.0-11.0)
[2017-02-19 13:31] LABS: ANION GAP 7 MEQ/L (5-15); BICARBONATE 25.8 MEQ/L (21.0-32.0); BLOOD UREA NITROGEN 35 MG/DL (7-18)
[2017-02-19 13:32] LABS: APTT (PATIENT) 26.7 SEC (24.3-30.1); PROTHROMBIN TIME - PATIENT 10.6 SEC (9.8-11.6)
[2017-02-19 13:34] LABS: ALT (GPT) 20 U/L (10-53); AST (GOT) 15 U/L (15-37); GLOMERULAR FILTRATION RATE 47 ML/MIN (>89)
[2017-02-19 13:35] LABS: TOTAL BILIRUBIN ADULT 0.5 MG/DL (0.2-1.0)
[2017-02-19 13:37] LABS: ALKALINE PHOSPHATASE 83 U/L (45-117)
[2017-02-19] MEDS ORDERED: INSULIN HUMAN REGULAR 1,000 UNITS/10 ML VIAL SQ ONE (13:45)
--- NOTE | 2017-02-19 14:10 | HHI.HP ---
HPI Service [facility] Primary Care Physician Pavithra Carbone MD Admission Diagnosis MULTIPLE RIB FRACTURES Diagnoses: (1) Ribs, multiple fractures (2) Inadequate pain control Chief Complaint: Left-sided chest pain status post mechanical fall Travel History International Travel<30 Days: No Contact w/Intl Traveler <30 Da: No Traveled to Known Affected Are: No History of Present Illness 86-year-old female with a history of diabetes type 2, hypertension, presented to the ED with any acute onset of left-sided chest pain rated over 9 /10 in intensity was localized without any radiation ,status post mechanical fall. Patient states, she woke up in the middle of the night and as she was using a walker to go to about from a failed and hit the left side of her chest on the dresser leading to severe pain however without any loss of consciousness. She states, despite taking tramadol she has no relief than the pain. She also complained of shortness of breath otherwise has no GI bleed. Review of Systems Except as stated in HPI: all other systems reviewed are Neg Past Family Social History Past Medical History Diabetes mellitus type 2 Hypertension Hyperlipidemia Chronic weakness History of Rectal cancer Past Surgical History Past Surgical History Rectal surgery for cancer Reported Medications Lisinopril 20 Mg Tab 30 Mg PO DAILY Hydralazine HCl 25 Mg Tablet 50 Mg PO BID Reported Magox 400 (Magnesium Oxide) 400 Mg Tablet 400 Mg PO DAILY Baclofen 10 Mg Tab 10 Mg PO DAILY PRN Amlodipine (Amlodipine Besylate) 10 Mg Tab 10 Mg PO DAILY Venlafaxine ER 24 HR (Venlafaxine HCl) 37.5 Mg Cap 37.5 Mg PO DAILY Tramadol (Tramadol HCl) 50 Mg Tab 50 Mg PO Q6H PRN Lantus Solostar Pen Inj (Insulin Glargine) 300 Unit/3 Ml Pen 40 Units SQ HS Humalog Inj (Insulin Human Lispro) 1,000 Unit/10 Ml Vial Unknown Dose SQ TIDAC SLIDING SCALE Xanax (Alprazolam) 0.25 Mg Tab 0.25 Mg PO TID PRN Allergies: Coded Allergies: Sulfa (Sulfonamide Antibiotics) (Unverified Allergy, Severe, UNKNOWN, ) penicillin G (Unverified Allergy, Severe, UNKNOWN, 02/19/17) Family History Bone cancer and father Diabetes mellitus mother Breast cancer in sister Social History No smoking No alcohol use No drug abuse Physical Exam Vital Signs Vital Signs Date Time Temp Pulse Resp B/P (MAP) Pulse Ox O2 Delivery O2 Flow Rate FiO2 02/19/17 13:00 66 15 172/82 (112) 94 Room Air 02/19/17 11:53 20 94 Room Air 02/19/17 10:58 97.7 92 18 198/85 (122) 96 Physical Exam GENERAL: This is a well-nourished, well-developed patient, in no apparent distress. SKIN: No rashes, ecchymoses or lesions. Cool and dry. HEAD: Atraumatic. Normocephalic. No temporal or scalp tenderness. EYES: Pupils equal round and reactive. Extraocular motions intact. No scleral icterus. No injection or drainage. ENT: Nose without bleeding, purulent drainage or septal hematoma. Throat without erythema, tonsillar hypertrophy or exudate. Uvula midline. Airway patent. NECK: Trachea midline. No JVD or lymphadenopathy. Supple, nontender, no meningeal signs. CARDIOVASCULAR: Regular rate and rhythm with II/ HOOD RESPIRATORY: Clear to auscultation. Breath sounds equal bilaterally. No wheezes , rales, or rhonchi. Tender to palpation left anterior chest wall GASTROINTESTINAL: Abdomen soft, non-tender, nondistended. No hepato-splenomegaly , or palpable masses. No guarding. MUSCULOSKELETAL: Extremities without clubbing, cyanosis, or edema. No joint tenderness, effusion, or edema noted. No calf tenderness. Negative Homans sign bilaterally. NEUROLOGICAL: Awake and alert. Cranial nerves II through XII intact. Motor and sensory grossly within normal limits. Five out of 5 muscle strength in all muscle groups. Normal speech. Laboratory Laboratory Tests Test 02/19/17 13:00 White Blood Count 10.8 Red Blood Count 4.22 Hemoglobin 12.5 Hematocrit 36.6 Mean Corpuscular Volume 86.8 Mean Corpuscular Hemoglobin 29.6 Mean Corpuscular Hemoglobin Concent 34.1 Red Cell Distribution Width 13.6 Platelet Count 164 Mean Platelet Volume 10.9 Neutrophils (%) (Auto) 85.0 Lymphocytes (%) (Auto) 7.8 Monocytes (%) (Auto) 4.9 Eosinophils (%) (Auto) 0.4 Basophils (%) (Auto) 1.9 Neutrophils # (Auto) 9.3 Lymphocytes # (Auto) 0.8 Monocytes # (Auto) 0.5 Eosinophils # (Auto) 0.0 Basophils # (Auto) 0.2 CBC Comment DIFF FINAL Differential Comment Prothrombin Time 10.6 Prothromb Time International Ratio 1.0 Activated Partial Thromboplast Time 26.7 Blood Urea Nitrogen 35 Creatinine 1.10 Random Glucose 321 Total Protein 7.5 Albumin 3.4 Calcium Level 8.7 Alkaline Phosphatase 83 Aspartate Amino Transf (AST/SGOT) 15 Alanine Aminotransferase (ALT/SGPT) 20 Total Bilirubin 0.5 Sodium Level 136 Potassium Level 4.6 Chloride Level 103 Carbon Dioxide Level 25.8 Anion Gap 7 Estimat Glomerular Filtration Rate 47 Result Diagram: 02/19/17 1300 02/19/17 1300 Imaging Last Impressions Ribs X-Ray 02/19/17 1120 Signed Impressions: Service Date/Time: Sunday, February 19, 2017 11:38 - CONCLUSION: 1. Acute fractures involving the lateral aspects of the left sixth, seventh, eighth, ninth, and 10th ribs. 2. Cholelithiasis. 3. Degenerative changes throughout the thoracolumbar spine. Keron Barker MD Caprini VTE Risk Assessment Caprini VTE Risk Assessment: Mod/High Risk (score >= 2) Caprini Risk Assessment Model Point Value = 1 Point Value = 2 Point Value = 3 Point Value = 5 Age 41-60 Minor surgery BMI > 25 kg/m2 Swollen legs Varicose veins or History of unexplained or recurrent spontaneous Oral contraceptives or hormone replacement Sepsis (< 1 month) Serious lung disease, including pneumonia (< 1 month) Abnormal pulmonary function Acute myocardial infarction Congestive heart failure (< 1 month) History of inflammatory bowel disease Medical patient at bed rest Age 61-74 Arthroscopic surgery Major open surgery (> 45 min) Laparoscopic surgery (> 45 min) Malignancy Confined to bed (> 72 hours) Immobilizing plaster cast Central venous access Age >= 75 History of VTE Family history of VTE Factor V Leiden Prothrombin [id number] Lupus anticoagulant Anticardiolipin antibodies Elevated serum homocysteine Heparin-induced thrombocytopenia Other congenital or acquired thrombophilia Stroke (< 1 month) Elective arthroplasty Hip, pelvis, or leg fracture Acute spinal cord injury (< 1 month) Prophylaxis Regimen Total Risk Factor Score Risk Level Prophylaxis Regimen 0-1 Low Early ambulation 2 Moderate Order ONE of the following: *Sequential Compression Device (SCD) *Heparin 5000 units SQ BID 3-4 Higher Order ONE of the following medications: *Heparin 5000 units SQ TID *Enoxaparin/Lovenox 40 mg SQ daily (WT < 150 kg, CrCl > 30 mL/min) *Enoxaparin/Lovenox 30 mg SQ daily (WT < 150 kg, CrCl > 10-29 mL/min) *Enoxaparin/Lovenox 30 mg SQ BID (WT < 150 kg, CrCl > 30 mL/min) AND/OR *Sequential Compression Device (SCD) 5 or more Highest Order ONE of the following medications: *Heparin 5000 units SQ TID (Preferred with Epidurals) *Enoxaparin/Lovenox 40 mg SQ daily (WT < 150 kg, CrCl > 30 mL/min) *Enoxaparin/Lovenox 30 mg SQ daily (WT < 150 kg, CrCl > 10-29 mL/min) *Enoxaparin/Lovenox 30 mg SQ BID (WT < 150 kg, CrCl > 30 mL/min) AND *Sequential Compression Device (SCD) Assessment and Plan Problem List: (1) Inadequate pain control ICD Code: R52 - Pain, unspecified (2) Ribs, multiple fractures ICD Code: S22.49XA - Multiple fractures of ribs, unspecified side, initial encounter for closed fracture (3) Fall ICD Code: W19.XXXA - Unspecified fall, initial encounter Status: Acute Assessment and Plan 86-year-old female with Rib multiple fractures Inadequate pain control Status post mechanical fall Rib x-ray noted and review by me with multiple rib fractures Pain management with parenteral narcotics when necessary Fall precaution Diabetes type 2 Resume outpatient medication Start insulin sliding scale Labile benign hypertension Secondary to poorly controlled pain Resume outpatient medications Anxiety Resume outpatient medications DVT prophylaxis: Bilateral SCDs Code Status Full code Discussed Condition With Patient, ED physician Kenji Fang MD Feb 19, 2017 14:10
[2017-02-19] MEDS ORDERED: SODIUM CHLORIDE 0.9% FLUSH 10 ML FLUSH IV FLUSH PRN (14:15)
[2017-02-19] MEDS ORDERED: DEXTROSE 50% IN WATER 50 ML VIAL(D50) IV PUSH PRN (14:15)
[2017-02-19] MEDS ORDERED: ACETAMINOPHEN 325 MG TAB PO PRN (14:15)
[2017-02-19] MEDS ORDERED: ENALAPRILAT 2.5 MG/2 ML VIAL IV PUSH PRN (14:15)
[2017-02-19] MEDS ORDERED: NALOXONE HCL 0.4 MG/ML AMP IV PUSH PRN (14:15)
[2017-02-19] MEDS ORDERED: GLUCAGON 1 MG/ML VIAL OTHER PRN (14:15)
[2017-02-19] MEDS ORDERED: ALPRAZolam 0.25 MG TAB PO PRN (14:15)
[2017-02-19] MEDS ORDERED: ACETAMINOPHEN/HYDROcodone 325 MG/5 MG TAB PO PRN (14:15)
[2017-02-19] MEDS ORDERED: RESP: ALBUTEROL 2.5 MG/IPRATROPIUM 0.5 MG NEB (PRN) NEB (14:15)
[2017-02-19] MEDS ORDERED: ONDANSETRON HCL 4 MG/2 ML VIAL IVP PRN (14:15)
[2017-02-19] MEDS ORDERED: IBUPROFEN 400 MG TAB PO PRN (14:15)
[2017-02-19] MEDS ORDERED: BACLOFEN 10 MG TAB PO PRN (14:15)
[2017-02-19 14:44] LABS: BLOOD, URINE NEG (NEG); GLUCOSE,URINE 1000 OR GREATER mg/dL (NEG); KETONE, URINE TRACE mg/dL (NEG); NITRITE,URINE NEG (NEG)
[2017-02-19 15:08] LABS: METHOD OF COLLECTION VOIDED; URINE COLOR STRAW (YELLW/STRAW)
[2017-02-19 15:09] VITALS: BP 140/65
[2017-02-19 15:10] LABS: COMMENT (UR) CULT NOT INDICATED; CULTURE IF INDICATED CULT NOT INDICATED; SQUAMOUS EPITHELIAL CELL URINE 0-4 /hpf (0-5)
[2017-02-19 15:30] VITALS: BP 186/78; PULSE 77; RESP 20; TEMP 97.8; O2SAT 96
[2017-02-19] MEDS: ACETAMINOPHEN/HYDROcodone 325 MG/7.5 MG TAB PO PRN ×2 (15:38→19:41)
[2017-02-19] MEDS: INSULIN ASPART SUPPLEMENTAL SCALE SQ SCH ×2 (16:49→20:57)
[2017-02-19] MEDS ORDERED: MORPHINE SULFATE 2 MG/ML INJ IM PRN (18:30)
[2017-02-19] MEDS: SODIUM CHLORIDE 0.9% FLUSH 10 ML FLUSH IV FLUSH SCH (19:54)
[2017-02-19 20:00] VITALS: BP 115/56; PULSE 78; RESP 20; TEMP 97.2; O2SAT 91
[2017-02-19] MEDS: hydrALAZINE HCL 50 MG TAB PO SCH (20:54)
[2017-02-19] MEDS ORDERED: INSULIN DETEMIR 100 UNITS/ML VIAL SQ SCH (21:00)
[2017-02-20] VITALS: BP 145/63; PULSE 62; RESP 20; TEMP 97.7; O2SAT 92
[2017-02-20] MEDS: SODIUM CHLOR 0.9% 1000 ML INJ 1,000 ML IV SCH (00:25)
[2017-02-20] MEDS: ACETAMINOPHEN/HYDROcodone 325 MG/7.5 MG TAB PO PRN ×4 (01:32→18:00)
[2017-02-20 05:45] LABS: AUTOMATED NEUTROPHIL # 6.4 TH/MM3 (1.8-7.7); BASOPHIL % 0.4 % (0.0-2.0); EOSINOPHIL # 0.2 TH/MM3 (0-0.4); EOSINOPHIL % 2.5 % (0.0-4.0); HEMATOCRIT 34.4 % (35.0-46.0); HEMO FLAGS DIFF FINAL; LYMPHOCYTE # 1.3 TH/MM3 (1.0-4.8); MEAN CELL VOLUME 86.8 FL (80.0-100.0); MEAN CORPUSCULAR HEMOGLOBIN 28.2 PG (27.0-34.0); MEAN CORPUSCULAR HGB CONC 32.5 % (32.0-36.0); MONO % 6.7 % (0.0-8.0); NEUT % 75.4 % (16.0-70.0); PLATELET COUNT 177 TH/MM3 (150-450); RED BLOOD COUNT 3.96 MIL/MM3 (4.00-5.30); RED CELL DISTRIBUTION WIDTH 13.3 % (11.6-17.2); WHITE BLOOD COUNT 8.5 TH/MM3 (4.0-11.0)
[2017-02-20 06:04] LABS: CHLORIDE 104 MEQ/L (98-107); POTASSIUM 4.5 MEQ/L (3.5-5.1); SODIUM (NA) 138 MEQ/L (136-145)
[2017-02-20 06:07] LABS: ANION GAP 7 MEQ/L (5-15); BICARBONATE 26.9 MEQ/L (21.0-32.0); BLOOD UREA NITROGEN 34 MG/DL (7-18)
[2017-02-20 06:10] LABS: ALT (GPT) 17 U/L (10-53); AST (GOT) 15 U/L (15-37); GLOMERULAR FILTRATION RATE 42 ML/MIN (>89)
[2017-02-20 06:11] LABS: TOTAL BILIRUBIN ADULT 0.3 MG/DL (0.2-1.0)
[2017-02-20 06:13] LABS: ALKALINE PHOSPHATASE 73 U/L (45-117)
[2017-02-20] MEDS: INSULIN ASPART SUPPLEMENTAL SCALE SQ SCH ×3 (07:46→17:15)
[2017-02-20 07:56] VITALS: BP 176/78; PULSE 74; RESP 20; TEMP 98; O2SAT 94
[2017-02-20] MEDS ORDERED: LISINOPRIL 10 MG TAB PO SCH (09:00)
[2017-02-20] MEDS ORDERED: MAGNESIUM OXIDE 400 MG TAB PO SCH (09:00)
[2017-02-20] MEDS ORDERED: VENLAFAXINE HCL XR 37.5 MG CAP PO SCH (09:00)
[2017-02-20] MEDS: hydrALAZINE HCL 50 MG TAB PO SCH (09:02)
[2017-02-20] MEDS: SODIUM CHLORIDE 0.9% FLUSH 10 ML FLUSH IV FLUSH SCH (09:02)
--- NOTE | 2017-02-20 10:33 | HHI.PR ---
Subjective Remarks Follow-up multiple rib fractures/inadequate pain control 02/20/17-patient seen and examined, still complains of left-sided rib cage pain. Denies any significant shortness of breath. Objective Vitals Vital Signs Date Time Temp Pulse Resp B/P (MAP) Pulse Ox O2 Delivery O2 Flow Rate FiO2 02/20/17 09:02 22 02/20/17 07:56 98.0 74 20 176/78 (110) 94 02/20/17 07:28 20 02/20/17 00:00 97.7 62 20 145/63 (90) 92 02/19/17 20:00 97.2 78 20 115/56 (75) 91 02/19/17 15:30 97.8 77 20 186/78 (114) 96 02/19/17 15:09 68 18 140/65 (90) 94 02/19/17 13:00 66 15 172/82 (112) 94 Room Air 02/19/17 11:53 20 94 Room Air 02/19/17 10:58 97.7 92 18 198/85 (122) 96 I/O 02/19/17 02/19/17 02/19/17 02/20/17 02/20/17 02/20/17 07:00 15:00 23:00 07:00 15:00 23:00 Intake Total 1190 ml 480 ml Output Total 600 ml Balance 1190 ml -120 ml Intake Oral 770 ml 480 ml IV Total 420 ml Output Urine Total 600 ml # Bowel Movements 0 Result Diagram: 02/20/17 0510 02/20/17 0510 Imaging Last Impressions Ribs X-Ray 02/19/17 1120 Signed Impressions: Service Date/Time: Sunday, February 19, 2017 11:38 - CONCLUSION: 1. Acute fractures involving the lateral aspects of the left sixth, seventh, eighth, ninth, and 10th ribs. 2. Cholelithiasis. 3. Degenerative changes throughout the thoracolumbar spine. Keron Barker MD Objective Remarks GENERAL: NAD SKIN: Warm and dry. HEAD: Normocephalic. EYES: No scleral icterus. No injection or drainage. NECK: Supple, trachea midline. No JVD or lymphadenopathy. CARDIOVASCULAR: Regular rate and rhythm without murmurs, gallops, or rubs. TTP left-sided rib cage RESPIRATORY: Breath sounds equal bilaterally. No accessory muscle use. GASTROINTESTINAL: Abdomen soft, non-tender, nondistended. MUSCULOSKELETAL: No cyanosis, or edema. BACK: Nontender without obvious deformity. No CVA tenderness. A/P Problem List: (1) Ribs, multiple fractures ICD Code: S22.49XA - Multiple fractures of ribs, unspecified side, initial encounter for closed fracture (2) Inadequate pain control ICD Code: R52 - Pain, unspecified Assessment and Plan 86-year-old female with Rib multiple fractures Inadequate pain control Status post mechanical fall Rib x-ray with multiple rib fractures Continue Pain management with parenteral narcotics when necessary Fall precaution PT consult Diabetes type 2 Continue outpatient medication continue insulin sliding scale Labile benign hypertension Secondary to poorly controlled pain Continue outpatient medications Anxiety Continue outpatient medications DVT prophylaxis: Bilateral SCDs Discharge Planning Discharge patient to SNF Condition on discharge: Improved Regular Diet as tolerated Ad Cara activity Rx written:see EMR Follow-up with primary care physician in 1 week Kenji Fang MD Feb 20, 2017 10:33
[2017-02-20] MEDS ORDERED: TRAM50TA PO (10:40)
[2017-02-20] MEDS ORDERED: HYDR-3580 PO (10:40)
[2017-02-20] MEDS ORDERED: ALPR.25 PO (10:40)
[2017-02-20 11:47] VITALS: BP 172/72; PULSE 71; RESP 20; TEMP 98.8; O2SAT 93
[2017-02-20] MEDS: KETOROLAC TROMETHAMINE 60 MG/2 ML (IM) VIAL IM SCH ×2 (12:28→17:13)
[2017-02-20 15:53] VITALS: BP 151/67; PULSE 74; RESP 20; TEMP 97.8; O2SAT 94
[2017-02-20 18:09] VITALS: BP 151/67; PULSE 74; RESP 20; TEMP 97.8; O2SAT 94
[2017-02-20 19:00] VITALS: RESP 20
== END 2017-02-20 19:38 ==
LOC: PHED 10:56 → PHEDA 13:47 → PH3B 15:23
PROVIDERS: ADMIT Hospitalist; ATTEND Hospitalist
DX: S22.42XA Multiple fractures of ribs, left side, initial encounter for closed fracture (principal); E11.9 Type 2 diabetes mellitus without complications; I10 Essential (primary) hypertension; K80.20 Calculus of gallbladder without cholecystitis without obstruction; E78.00 Pure hypercholesterolemia, unspecified; F32.9 Major depressive disorder, single episode, unspecified; F41.9 Anxiety disorder, unspecified; Z85.048 Personal history of other malignant neoplasm of rectum, rectosigmoid junction, and anus; Z95.5 Presence of coronary angioplasty implant and graft; Z79.899 Other long term (current) drug therapy; Z87.891 Personal history of nicotine dependence; Z79.4 Long term (current) use of insulin; W19.XXXA Unspecified fall, initial encounter
CPT/HCPCS: 71101; 80053; 81001; 82948; 85025; 85610; 85730; 94150; 96361; 96372; 96374; 96375; 97162; 99285; G0378; G8987; G8988; J1815; J1885; J2270; J2405; J7030

== ENCOUNTER 2017-04-29 16:56 | Emergency (ER) | payer OTHER ==
[~2017-04-29] VITALS: Ht 162.6 cm; Wt 85.0 kg
[~2017-04-29 16:56] MED LIST changes: +HYDR-3580 PO; -LACTCHW3 CHEW
[2017-04-29 17:37] VITALS: BP 171/80; PULSE 97; RESP 21; TEMP 97.9; O2SAT 99
[2017-04-29] MEDS ORDERED: SODIUM CHLOR 0.9% 1000 ML INJ 1,000 ML IV ONE (18:15)
--- NOTE | 2017-04-29 18:28 | PD ---
HPI . Tremors Chief Complaint: Anxiety Time Seen by Provider: 18:01 Travel History International Travel<30 days: No Contact w/Intl Traveler<30days: No Traveled to known affect area: No History of Present Illness HPI Patient presents with chief complaint of shaking. Onset was yesterday. She is also complaining with some shortness of breath. She has not noted any exacerbating or relieving factors. The shaking is "uncontrollable." PFSH Past Medical History Hx Anticoagulant Therapy: No Arthritis: No Asthma: No Autoimmune Disease: No Blood Disorders: No Anxiety: Yes Depression: Yes Heart Rhythm Problems: No Cancer: Yes (RECTAL; IN REMISSION OF SPRING 2011) Cardiovascular Problems: Yes (STENTS, HTN) High Cholesterol: Yes Chemotherapy: Yes (january 2009) Chest Pain: Yes Congestive Heart Failure: No COPD: No Cerebrovascular Accident: No Diabetes: Yes Patient Takes Glucophage: No (UNKNOWN) Diminished Hearing: No Endocrine: No GERD: No Glaucoma: No Genitourinary: No Headaches: No Hepatitis: No Hiatal Hernia: No Hypertension: Yes Immune Disorder: No Implanted Vascular Access Dvce: No Kidney Stones: No Musculoskeletal: No Neurologic: No Psychiatric: Yes Reproductive: No Respiratory: Yes Migraines: No Myocardial Infarction: No Radiation Therapy: Yes (LAST 02/08) Renal Failure: No Seizures: No Sickle Cell Disease: No Sleep Apnea: No Thyroid Disease: No Ulcer: No Menopausal: Yes : 1 Para: 1 Past Surgical History Abdominal Surgery: Yes (HYSTERECTOMY) AICD: No Appendectomy: Yes Arteriovenous Shunt: No Body Medical Devices: [employer] [place] Cardiac Surgery: Yes (STENT PLACEMENT) Cholecystectomy: Yes Coronary Stent: Yes (X4, LAST ONE 2004) Ear Surgery: No Endocrine Surgery: No Eye Surgery: No Genitourinary Surgery: No Gynecologic Surgery: No Hysterectomy: Yes Insulin Pump: No Joint Replacement: No Neurologic Surgery: No Oral Surgery: No Pacemaker: No Thoracic Surgery: No Tonsillectomy: Yes Other Surgery: Yes Social History Alcohol Use: No Tobacco Use: No Substance Use: No Allergies-Medications (Allergen,Severity, Reaction): Coded Allergies: Sulfa (Sulfonamide Antibiotics) (Unverified Allergy, Severe, UNKNOWN, 04/29) penicillin G (Unverified Allergy, Severe, UNKNOWN, 04/29/17) Reported Meds & Prescriptions Reported Meds & Active Scripts Active Hydrocodone-Acetamin 7.5-325 (Hydrocodone/Acetaminophen) 7.5 Mg-325 Mg Tablet 1 Tab PO Q4H PRN Tramadol (Tramadol HCl) 50 Mg Tab 50 Mg PO Q6H PRN Xanax (Alprazolam) 0.25 Mg Tab 0.25 Mg PO TID PRN Lisinopril 20 Mg Tab 30 Mg PO DAILY Hydralazine HCl 25 Mg Tablet 50 Mg PO BID Reported Magox 400 (Magnesium Oxide) 400 Mg Tablet 400 Mg PO DAILY Baclofen 10 Mg Tab 10 Mg PO DAILY PRN Amlodipine (Amlodipine Besylate) 10 Mg Tab 10 Mg PO DAILY Venlafaxine ER 24 HR (Venlafaxine HCl) 37.5 Mg Cap 37.5 Mg PO DAILY Lantus Solostar Pen Inj (Insulin Glargine) 300 Unit/3 Ml Pen 40 Units SQ HS Humalog Inj (Insulin Human Lispro) 1,000 Unit/10 Ml Vial Unknown Dose SQ TIDAC SLIDING SCALE Review of Systems Except as stated in HPI: all other systems reviewed are Neg General / Constitutional: No: Fever, Chills Cardiovascular: No: Chest Pain or Discomfort Respiratory: Positive: Shortness of Breath Gastrointestinal: No: Nausea, Vomiting, Diarrhea Genitourinary: No: Urgency, Frequency, Dysuria Neurologic: Positive: Tremor Physical Exam Narrative GENERAL: Awake and alert. She is having episodic short periods of shaking. SKIN: warm/dry. Normal color and turgor. HEAD: Normocephalic. Atraumatic. EYES: Pupils equal and round. No scleral icterus. No injection or drainage. ENT: No nasal bleeding or discharge. Mucous membranes pink and moist. NECK: Trachea midline. Full range of motion without pain.. CARDIOVASCULAR: Regular rate and rhythm. RESPIRATORY: No accessory muscle use. Clear to auscultation. Breath sounds equal bilaterally. GASTROINTESTINAL: Abdomen soft. Nontender. Bowel sounds present. Nondistended. MUSCULOSKELETAL: No obvious deformities. NEUROLOGICAL: Awake and alert. No obvious cranial nerve deficits. Motor grossly within normal limits. Normal speech. PSYCHIATRIC: Appropriate mood and affect; insight and judgment normal. Data Data Last Documented VS Vital Signs Date Time Temp Pulse Resp B/P (MAP) Pulse Ox O2 Delivery O2 Flow Rate FiO2 04/29/17 19:13 98 Room Air 04/29/17 17:37 97.9 97 21 171/80 (110) Orders Orders Sepsis Workup Initiated (04/29/17 ) Complete Blood Count With Diff (04/29/17 18:01) Comprehensive Metabolic Panel (04/29/17 18:01) Lactic Acid Sepsis Protocol (04/29/17 18:01) Urinalysis - C+S If Indicated (04/29/17 18:01) Influenzae A/B Antigen (04/29/17 18:01) Blood Culture (04/29/17 18:01) Chest, Single Ap (04/29/17 18:01) Blood Glucose (04/29/17 18:01) Ecg Monitoring (04/29/17 18:01) Iv Access Insert/Monitor (04/29/17 18:01) Oximetry (04/29/17 18:01) Oxygen Administration (04/29/17 18:01) Sodium Chlor 0.9% 1000 Ml Inj (Ns 1000 M (04/29/17 18:15) Urine Culture (04/29/17 18:05) Ceftriaxone Inj (Rocephin Inj) (04/29/17 19:45) Labs Laboratory Tests Test 04/29/17 18:00 04/29/17 18:05 04/29/17 18:15 White Blood Count 8.9 TH/MM3 Red Blood Count 4.18 MIL/MM3 Hemoglobin 11.9 GM/DL Hematocrit 35.3 % Mean Corpuscular Volume 84.4 FL Mean Corpuscular Hemoglobin 28.3 PG Mean Corpuscular Hemoglobin Concent 33.6 % Red Cell Distribution Width 16.0 % Platelet Count 255 TH/MM3 Mean Platelet Volume 9.3 FL Neutrophils (%) (Auto) 76.2 % Lymphocytes (%) (Auto) 14.7 % Monocytes (%) (Auto) 7.6 % Eosinophils (%) (Auto) 1.0 % Basophils (%) (Auto) 0.5 % Neutrophils # (Auto) 6.8 TH/MM3 Lymphocytes # (Auto) 1.3 TH/MM3 Monocytes # (Auto) 0.7 TH/MM3 Eosinophils # (Auto) 0.1 TH/MM3 Basophils # (Auto) 0.0 TH/MM3 CBC Comment DIFF FINAL Differential Comment Blood Urea Nitrogen 31 MG/DL Creatinine 1.32 MG/DL Random Glucose 126 MG/DL Total Protein 8.2 GM/DL Albumin 3.8 GM/DL Calcium Level 9.3 MG/DL Alkaline Phosphatase 111 U/L Aspartate Amino Transf (AST/SGOT) 29 U/L Alanine Aminotransferase (ALT/SGPT) 23 U/L Total Bilirubin 0.5 MG/DL Sodium Level 137 MEQ/L Potassium Level 4.0 MEQ/L Chloride Level 103 MEQ/L Carbon Dioxide Level 23.9 MEQ/L Anion Gap 10 MEQ/L Estimat Glomerular Filtration Rate 38 ML/MIN Urine Color YELLOW Urine Turbidity CLEAR Urine pH 6.5 Urine Specific [place] 1.017 Urine Protein 30 mg/dL Urine Glucose (UA) NEG mg/dL Urine Ketones 10 mg/dL Urine Occult Blood MOD Urine Nitrite NEG Urine Bilirubin NEG Urine Urobilinogen LESS THAN 2.0 MG/DL Urine Leukocyte Esterase MOD Urine RBC 26 /hpf Urine WBC 18 /hpf Urine Squamous Epithelial Cells 2 /hpf Urine Calcium Oxalate Crystals RARE /hpf Urine Bacteria FEW /hpf Urine Hyaline Casts 3 /lpf Microscopic Urinalysis Comment CATH-CULTURE IND Lactic Acid Level 2.1 mmol/L MDM Medical Decision Making Medical Screen Exam Complete: Yes Emergency Medical Condition: Yes Medical Record Reviewed: Yes (medical history significant for hypertension, diabetes and hyperlipidemia) Differential Diagnosis Differential diagnosis includes anxiety, sepsis Narrative Course Patient presents for evaluation of tremors. Onset was yesterday. I have initiated a septic workup. CBC & BMP Diagram 04/29/17 18:00 Total Protein 8.2, Albumin 3.8, Calcium Level 9.3, Alkaline Phosphatase 111, Aspartate Amino Transf (AST/SGOT) 29, Alanine Aminotransferase (ALT/SGPT) 23, Total Bilirubin 0.5 Last Impressions Chest X-Ray 04/29/17 1801 Signed Impressions: Service Date/Time: Saturday, April 29, 2017 18:21 - CONCLUSION: No acute cardiopulmonary disease demonstrated. Healing left rib fractures. Mitchell Pierre MD UA>>mod LE, 18 WBCs, few bact She'll be treated here with Rocephin and then discharged home on Keflex. Sepsis Criteria SIRS Criteria (2 or more): Heart rate over 90, RR > 20 or PaCO2 < 32 Sepsis Criteria (SIRS+source): Infect source susp/known Criteria Outcome: Meets SIRS criteria, Meets sepsis criteria Diagnosis Primary Impression: Urinary tract infection Qualified Codes: N30.00 - Acute cystitis without hematuria Patient Instructions: General Instructions, Urinary Tract Infection in Women ( [place]) Med/Other Pt SpecificInfo: Prescription(s) given Scripts Cephalexin (Keflex) 500 Mg Cap 500 MG PO Q8H for Infection for 7 Days, #21 CAP 0 Refills Prov: Peyton Hickey MD 04/29/17 Disposition: 01 DISCHARGE HOME Condition: Stable Peyton Hickey MD Apr 29, 2017 18:28
--- NOTE | 2017-04-29 18:42 | RADRPT ---
EXAM DATE/TIME: 04/29/2017 18:21 [facility] COMPARISON: RIBS LEFT(W PA CXR MIN 3VWS), February 19, 2017, 11:38. CHEST SINGLE AP, October 18, 2016, 12:23. INDICATIONS : Short of breath. MEDICAL HISTORY : None. SURGICAL HISTORY : None. ENCOUNTER: Initial ACUITY: 1 day PAIN SCORE: 0/10 LOCATION: Bilateral chest FINDINGS: Small volumes with vascular crowding. No infiltrate, effusion or pneumothorax seen. Heart size stable, within normal limits. Healing left rib fractures. I don't see an acute osseous abnormality. CONCLUSION: No acute cardiopulmonary disease demonstrated. Healing left rib fractures. Mitchell Pierre MD on April 29, 2017 at 18:38 Board Certified Radiologist. This report was verified electronically.
[2017-04-29 18:43] LABS: AUTOMATED NEUTROPHIL # 6.8 TH/MM3 (1.8-7.7); BASOPHIL % 0.5 % (0.0-2.0); EOSINOPHIL # 0.1 TH/MM3 (0-0.4); HEMATOCRIT 35.3 % (35.0-46.0); HEMOGLOBIN 11.9 GM/DL (11.6-15.3); LYMPH % 14.7 % (9.0-44.0); LYMPHOCYTE # 1.3 TH/MM3 (1.0-4.8); MEAN CELL VOLUME 84.4 FL (80.0-100.0); MEAN CORPUSCULAR HEMOGLOBIN 28.3 PG (27.0-34.0); MEAN CORPUSCULAR HGB CONC 33.6 % (32.0-36.0); MEAN PLATELET VOLUME 9.3 FL (7.0-11.0); MONO % 7.6 % (0.0-8.0); MONOCYTE # 0.7 TH/MM3 (0-0.9); NEUT % 76.2 % (16.0-70.0); PLATELET COUNT 255 TH/MM3 (150-450); RED BLOOD COUNT 4.18 MIL/MM3 (4.00-5.30); WHITE BLOOD COUNT 8.9 TH/MM3 (4.0-11.0)
[2017-04-29 18:54] LABS: BACTERIA, URINE FEW /hpf; BILIRUBIN, URINE NEG (NEG); BLOOD, URINE MOD (NEG); CALCIUM OXALATE CRYSTALS,URINE RARE /hpf; GLUCOSE,URINE NEG (NEG); HYALINE CAST, URINE 3 /lpf (RARE); KETONE, URINE 10 mg/dL (NEG); NITRITE,URINE NEG (NEG); PH, URINE 6.5 (5.0-8.5); SQUAMOUS EPITHELIAL CELL URINE 2 /hpf (0-5); URINE COLOR YELLOW (YELLW/STRAW); URINE LEUKOCYTE ESTERASE MOD (NEG)
[2017-04-29 19:05] LABS: ALBUMIN 3.8 GM/DL (3.4-5.0); AST (GOT) 29 U/L (15-37); BICARBONATE 23.9 MEQ/L (21.0-32.0); BLOOD UREA NITROGEN 31 MG/DL (7-18); CALCIUM 9.3 MG/DL (8.5-10.1); CHLORIDE 103 MEQ/L (98-107); CREATININE 1.32 MG/DL (0.50-1.00); GLOMERULAR FILTRATION RATE 38 ML/MIN (>89); GLUCOSE,RANDOM 126 MG/DL (74-106); SODIUM (NA) 137 MEQ/L (136-145)
[2017-04-29 19:09] LABS: ALKALINE PHOSPHATASE 111 U/L (45-117); ALT (GPT) 23 U/L (10-53); TOTAL BILIRUBIN ADULT 0.5 MG/DL (0.2-1.0); TOTAL PROTEIN 8.2 GM/DL (6.4-8.2)
[2017-04-29 19:13] VITALS: O2SAT 98
[2017-04-29 19:14] LABS: LACTIC ACID SEPSIS PROTOCOL 2.1 mmol/L (0.4-2.0)
[2017-04-29] MEDS ORDERED: CEPH-460 PO (19:39)
[2017-04-29] MEDS ORDERED: cefTRIAXone INJ 1,000 MG in SODIUM CHLORIDE 0.9% INJ 100 ML IV ONE (19:45)
== END 2017-04-29 21:35 | disposition home or self-care (01) ==
LOC: NEPE 16:56
DX: N30.00 Acute cystitis without hematuria (principal); E11.9 Type 2 diabetes mellitus without complications; I10 Essential (primary) hypertension; Z79.4 Long term (current) use of insulin
CPT/HCPCS: 71045; 80053; 81001; 83605; 85025; 86403; 87040; 87077; 87086; 87186; 87205; 87804; 96361; 96374; 99284; J0696; J7030

== ENCOUNTER 2018-01-28 01:57 | Inpatient (IN) ==
[2018-01-28 02:30] LABS: Baso # (Auto) 0.1 th/mm3 (0.0-0.2); Baso % (Auto) 0.7 % (0.0-2.0); Eos # (Auto) 0.3 th/mm3 (0.0-0.4); Eos % (Auto) 4.2 % (0.0-4.0); Hematocrit 35.2 % (35.0-46.0); Hemoglobin 11.6 gm/dL (11.6-15.3); Lymph # (Auto) 1.2 th/mm3 (1.0-4.8); Lymph % (Auto) 15.8 % (9.0-44.0); Mean Corpuscular HGB Conc 33.1 % (32.0-36.0); Mean Corpuscular Hemoglobin 29.2 pg (27.0-34.0); Mean Corpuscular Volume 88.2 fL (80.0-100.0); Mean Platelet Volume 10.4 fL (7.0-11.0); Mono # (Auto) 0.8 th/mm3 (0.0-0.9); Mono % (Auto) 10.3 % (0.0-8.0); Neut # (Auto) 5.1 th/mm3 (1.8-7.7); Platelet Count 171 th/mm3 (150-450); Red Blood Count 3.99 mil/mm3 (4.00-5.30); Red Cell Distribution Width 15.7 % (11.6-17.2); White Blood Count 7.4 th/mm3 (4.0-11.0)
--- NOTE | 2018-01-28 02:37 | XR ---
EXAM DATE: 01/28/2018 2:33 AM EDT AGE/SEX: 87 years / Female INDICATIONS: Chest pain. Shortness of breath. CLINICAL DATA: This is the patient's initial encounter. Patient reports that signs and symptoms have been present for 1 day and indicates a pain score of 6/10. MEDICAL/SURGICAL HISTORY: Hypertension. Diabetes mellitus type II. Carcinoma, rectal. Appende ctomy. Coronary artery stent. COMPARISON: [facility] [place], 04/29/[place]. . FINDINGS: Trace atelectasis at the left base. No infiltrate, effusion or pneumothorax. Stable, normal heart siz e. Atherosclerotic aorta. CONCLUSION: Minimal left base atelectasis. Otherwise negative and unchanged. Electronically signed by: Mitchell Pierre MD 01/28/2018 2:35 AM EDT
[2018-01-28 02:44] LABS: Activated Partial Thrombo Time 25.7 sec (24.3-30.1); Prothrombin Time 10.4 sec (9.8-11.6)
[2018-01-28 02:45] LABS: D-Dimer 1.4 mg/L FEU (0.00-0.50)
[2018-01-28 02:54] LABS: Alanine Aminotransferase 22 U/L (10-53); Albumin 3.3 g/dL (3.4-5.0); Anion Gap 7 meq/L (5-15); Aspartate Aminotransferase 21 U/L (15-37); Blood Urea Nitrogen 33 mg/dL (7-18); Calcium 8.2 mg/dL (8.5-10.1); Carbon Dioxide 29.1 meq/L (21.0-32.0); Chloride 103 meq/L (98-107); Glomerular Filtration Rate 44 mL/min (>89); Glucose,Random 293 mg/dL (74-106); Lipase 44 U/L (73-393); Potassium 4.2 meq/L (3.5-5.1); Sodium 139 meq/L (136-145)
[2018-01-28 02:58] LABS: Alkaline Phosphatase 76 U/L (45-117); Total Protein 7.3 g/dL (6.4-8.2); Troponin I 0.11 ng/mL (0.02-0.05)
[2018-01-28 03:01] LABS: Creatine Kinase 68 U/L (26-192)
--- NOTE | 2018-01-28 03:50 | CT ---
EXAM DATE: 01/28/2018 3:34 AM EDT AGE/SEX: 87 years / Female INDICATIONS: Substernal pain with elevated D-Dimer. CLINICAL DATA: This is the patient's initial encounter. Patient reports that signs and symptoms have been present for 1 day and indicates a pain score of 7/10. MEDICAL/SURGICAL HISTORY: Diabetes mellitus type II. Carcinoma, rectal. Cardiovascular disease. A ppendectomy. Coronary artery stent. RADIATION DOSE: 10.64 CTDI (mGy) COMPARISON: No prior exams available for comparison. TECHNIQUE: Volumetric scanning was performed using a multi-row detector CT scanner during bolus infu aurelio of 70 ml Omnipaque 350 (iohexol) nonionic water-soluble contrast as a single exam dose. The yoanna a was post processed with a variety of visualization algorithms including full volume maximum intensi ty projection and sliding thin slab reformation. Using automated exposure control and adjustment of the mA and/or kV according to patient size, radiation dose was kept as low as reasonably achievable t o obtain optimal diagnostic quality images. DICOM format image data is available electronically for review and comparison. FINDINGS: There is no pulmonary embolus. Main pulmonary artery is markedly distended at approximately 4.7 cm. N o evidence of right ventricular strain. Coronary artery calcification noted. There is atherosclerosis of the thoracic aorta without aneurysm. Calcification is seen of the mitral and aortic valves. No infiltrate, effusion or pneumothorax. There is no lymphadenopathy. Nodules are seen of the thyroid measuring up to 1.6 cm in size. No acute bony abnormalities are demonstrated. Degenerative changes are seen of the spine. An 18 mm mass is seen in the visualized left breast. Please correlate clinically and up-to-date mammo graphy. Last mammogram in our system is 2012. CONCLUSION: 1. No pulmonary embolus. 2. Distended main pulmonary artery. The differential includes jet phenomenon from pulmonic stenosis and pulmonary hypertension. 3. Coronary artery, valvular and thoracic aortic calcification. 4. Nodules of the thyroid and characterization with outpatient thyroid ultrasound is recommended. 5. Indeterminate 18 mm left breast mass. Clinical correlation and outpatient diagnostic mammography recommended. Electronically signed by: Mitchell Pierre MD 01/28/2018 3:48 AM EDT
--- NOTE | 2018-01-28 04:06 | ED ---
HPI General Chief complaint: Chest Pain Stated complaint: chest pressure Time Seen by Provider: 01/28/18 02:11 Source: patient Limitations: no limitations History of Present Illness HPI narrative: The patient is an 87 year old female who presents to the [facility] emergency department with a history of chest pain that she reports began shortly after eating Indonesian food in the evening around 7 PM. She reports that the pain is in the center of her chest. She has difficulty describing the character of the pain, however she reports that it is somewhat gas-like. She reports drinking root beer and belching, however this did not help. She reports that the pain seemed to be gradually getting worse with time. She reports the pain is been constant since onset up until she was given nitroglycerin sublingual by ambulance services. She denies ever having a heart attack in the past, however she reports that she has had 4 cardiac stents placed. She denies having a pens and pencils dipper. She cannot recall when she last had a stress test. She reports that the pain was associated with aching sensations in her arms and in her neck and jaw. She denies having any shortness of breath , diaphoresis, nausea, or vomiting. The patient denies having any diarrhea. On review of systems otherwise, the patient denies having any known recent fevers, cough, congestion, abdominal pain, urinary symptoms, or neurologic symptoms. Related Data Home Medications Medication Instructions Recorded Confirmed Unable to Obtain Home Meds 01/28/18 01/28/18 Allergies Allergy/AdvReac Type Severity Reaction Status Date / Time penicillin G Allergy Severe UNKNOWN Unverified 04/29/17 17:43 Sulfa (Sulfonamide Allergy Severe UNKNOWN Unverified 04/29/17 17:43 Antibiotics) Review of Systems ROS: all other systems reviewed are negative [facility] Medical History Medical History Chest pain (Acute) Diabetes (Acute) Hyperlipidemia (Acute) Hypertension (Acute) Rectal cancer (Acute) Surgical History Surgical History H/O heart artery stent (Acute) Hx of appendectomy (Acute) Social History Social History Substance History: No History of Abuse Smoking Status: Former smoker How Often Do You Have a Drink Containing Alcohol: Never Recent Travel in [facility] within the Last 8 Weeks: No Recent Out of Country Travel within the Last 8 Weeks: No Immunization History Tetanus Immunization: >5 Years Exam Const General: cooperative, no acute distress and well developed Nutritional Appearance: well nourished Orientation: alert, awake and oriented x3 HENMT Head: normocephalic and atraumatic Nose: no nasal discharge and no epistaxis Mouth: moist mucous membranes Throat: posterior oropharynx normal and uvula midline Eyes Sclera: normal sclerae Pupils: PERRL Neck Neck: no meningeal signs, trachea midline and no JVD Resp Effort & Inspection: no use of accessory muscles Auscultation: clear to auscultation bilaterally Cardio Rate: regular rate Rhythm: regular rhythm Heart Sounds: no murmurs GI Inspection: non-distended Palpation: soft, no hepatosplenomegaly and nontender Auscultation: normal bowel sounds Back/Spine/Pelvis Back: no CVA tenderness Skin General: dry skin (warm) Neuro General: alert, awake, oriented x3 and other (Grossly nonfocal.) Speech: speech normal Motor: no movement abnormalities noted Extrem General: normal to inspection (2+ pulses in all 4 extremities.), no calf tenderness, no clubbing, no cyanosis and edema (Trace pedal edema, reportedly improved compared to prior edema levels.) Laterality: bilaterally Psych Mood: congruent mood Affect: normal affect Judgment: judgment good Course Consultations Consultation #1: The patient's case including history, pertinent physical examination findings, and laboratory studies were discussed with Dr. Rivers. It was agreed that the patient would be admitted to the hospitalist service. Initial Documented Vital Signs Temperature 98.4 F 01/28/18 02:04 Pulse Rate 84 01/28/18 02:04 Respiratory Rate 16 01/28/18 02:04 Blood Pressure 138/70 01/28/18 02:04 Pulse Oximetry 99 01/28/18 02:04 Last Documented Vital Signs Temperature 98.4 F 01/28/18 02:04 Pulse Rate 85 01/28/18 03:47 Respiratory Rate 17 01/28/18 03:54 Blood Pressure 148/66 H 01/28/18 03:47 Pulse Oximetry 96 01/28/18 03:47 Medical Decision Making MDM Narrative Medical decision making narrative: During the course of the patient's emergency department visit, the patient's history, examination, and differential diagnosis were reviewed with the patient. The patient was placed on a classroom monitor with oximetry and frequent blood pressure monitoring. The patient had IV access obtained and blood work sent for analysis. A diagnostic evaluation was started regarding the patient's chest pain. The patient was initially provided nitroglycerin 1 inch the chest wall. The patient received aspirin 324 mg by ambulance services. The patient also received sublingual nitroglycerin x1 by ambulance services with reported resolution of her pain. The patient's diagnostic studies are remarkable for normal white count of 7.4, normal hemoglobin 11.6, platelets 171 with 10.3 monocytes, chemistry is remarkable for a normal PT PTT, d-dimer is elevated at 1.40, therefore CTA to rule out PE was ordered, chemistry is remarkable for a BUN of 33, creatinine 1.17 in a patient with similar renal insufficiency in the past, glucose 293, calcium 8.2, troponin I is elevated at 0.11, CPK within normal limits, BNP is 418, lipase within normal limits. A chest x-ray showed minimal left base atelectasis, otherwise no acute abnormality, CTA to rule out PE shows no evidence of PE, distended main pulmonary artery, differential includes jet phenomenon from pulmonic stenosis and pulmonary hypertension, evidence of coronary artery disease noted, valvular and thoracic aortic calcifications are noted, nodules of the thyroid are noted. Indeterminate 18 mm left breast mass is noted. The patient had a recurrence of chest pain while in the emergency department. The patient was again given nitroglycerin sublingual. A second EKG was done which showed no acute ST segment elevation, continued T wave inversions in aVL. Given the suspicious nature of the patient's pain the patient was started on heparin per OR protocol for suspected non-STEMI. The patient's results were discussed with the patient, including the plan of care. I explained that further testing and/ or monitoring is indicated based on the patient's history, examination, and/ or laboratory findings. Therefore, I recommended admission for additional evaluation. The patient expressed understanding and was agreeable with this plan. The patient was admitted to the hospital in guarded condition and sent to a bed under the care of the [facility] service. Medical Screen Exam Complete: Yes Emergency Medical Condition: Yes Differential Diagnosis Differential Diagnosis: STEMI, versus non-STEMI, versus angina, versus pulmonary embolism, versus acid reflux, versus dyspepsia, versus pancreatitis Medical Records Medical records reviewed: Yes I reviewed the patient's medical records. Lab Data Lab results reviewed: Yes I reviewed the patient's lab results. Result diagrams: 01/28/18 02:20 01/28/18 02:20 Lab Results 01/28/18 01/28/18 01/28/18 Range/Units 02:20 02:20 02:20 WBC 7.4 (4.0-11.0) th/mm3 RBC 3.99 L (4.00-5.30) mil/mm3 Hgb 11.6 (11.6-15.3) gm/dL Hct 35.2 (35.0-46.0) % MCV 88.2 (80.0-100.0) fL MCH 29.2 (27.0-34.0) pg MCHC 33.1 (32.0-36.0) % RDW 15.7 (11.6-17.2) % Plt Count 171 (150-450) th/mm3 MPV 10.4 (7.0-11.0) fL Neut % (Auto) 69.0 (16.0-70.0) % Lymph % (Auto) 15.8 (9.0-44.0) % [place] % (Auto) 10.3 H (0.0-8.0) % Eos % (Auto) 4.2 H (0.0-4.0) % Baso % (Auto) 0.7 (0.0-2.0) % Neut # (Auto) 5.1 (1.8-7.7) th/mm3 Lymph # (Auto) 1.2 (1.0-4.8) th/mm3 [place] # (Auto) 0.8 (0.0-0.9) th/mm3 Eos # (Auto) 0.3 (0.0-0.4) th/mm3 Baso # (Auto) 0.1 (0.0-0.2) th/mm3 WBC Differential . Differential Comment Auto diff final PT (9.8-11.6) sec INR Ratio APTT (24.3-30.1) sec D-Dimer Quant (PE/DVT) (0.00-0.50) mg/L FEU Sodium 139 (136-145) meq/L Potassium 4.2 (3.5-5.1) meq/L Chloride 103 (98-107) meq/L Carbon Dioxide 29.1 (21.0-32.0) meq/L Anion Gap 7 (5-15) meq/L BUN 33 H (7-18) mg/dL Creatinine 1.17 H (0.50-1.00) mg/dL Estimated GFR 44 L (>89) mL/min Random Glucose 293 H (74-106) mg/dL Calcium 8.2 L (8.5-10.1) mg/dL Magnesium 2.0 (1.5-2.5) mg/dL Total Bilirubin 0.3 (0.2-1.0) mg/dL AST 21 (15-37) U/L ALT 22 (10-53) U/L Alkaline Phosphatase 76 (45-117) U/L Total Creatine Kinase 68 (26-192) U/L Troponin I 0.11 H (0.02-0.05) ng/mL B-Natriuretic Peptide 114 H (0-100) pg/mL Total Protein 7.3 (6.4-8.2) g/dL Albumin 3.3 L (3.4-5.0) g/dL Lipase 44 L (73-393) U/L 01/28/18 Range/Units 02:20 WBC (4.0-11.0) th/mm3 RBC (4.00-5.30) mil/mm3 Hgb (11.6-15.3) gm/dL Hct (35.0-46.0) % MCV (80.0-100.0) fL MCH (27.0-34.0) pg MCHC (32.0-36.0) % RDW (11.6-17.2) % Plt Count (150-450) th/mm3 MPV (7.0-11.0) fL Neut % (Auto) (16.0-70.0) % Lymph % (Auto) (9.0-44.0) % [place] % (Auto) (0.0-8.0) % Eos % (Auto) (0.0-4.0) % Baso % (Auto) (0.0-2.0) % Neut # (Auto) (1.8-7.7) th/mm3 Lymph # (Auto) (1.0-4.8) th/mm3 [place] # (Auto) (0.0-0.9) th/mm3 Eos # (Auto) (0.0-0.4) th/mm3 Baso # (Auto) (0.0-0.2) th/mm3 WBC Differential Differential Comment PT 10.4 (9.8-11.6) sec INR 1.0 Ratio APTT 25.7 (24.3-30.1) sec D-Dimer Quant (PE/DVT) 1.40 H (0.00-0.50) mg/L FEU Sodium (136-145) meq/L Potassium (3.5-5.1) meq/L Chloride (98-107) meq/L Carbon Dioxide (21.0-32.0) meq/L Anion Gap (5-15) meq/L BUN (7-18) mg/dL Creatinine (0.50-1.00) mg/dL Estimated GFR (>89) mL/min Random Glucose (74-106) mg/dL Calcium (8.5-10.1) mg/dL Magnesium (1.5-2.5) mg/dL Total Bilirubin (0.2-1.0) mg/dL AST (15-37) U/L ALT (10-53) U/L Alkaline Phosphatase (45-117) U/L Total Creatine Kinase (26-192) U/L Troponin I (0.02-0.05) ng/mL B-Natriuretic Peptide (0-100) pg/mL Total Protein (6.4-8.2) g/dL Albumin (3.4-5.0) g/dL Lipase (73-393) U/L Imaging Data Radiologist's impression: Chest X-Ray 01/28/18 02:13 CONCLUSION: Minimal left base atelectasis. Otherwise negative and unchanged. Chest CTA 01/28/18 03:00 CONCLUSION: 1. No pulmonary embolus. 2. Distended main pulmonary artery. The differential includes jet phenomenon from pulmonic stenosis and pulmonary hypertension. 3. Coronary artery, valvular and thoracic aortic calcification. 4. Nodules of the thyroid and characterization with outpatient thyroid ultrasound is recommended. 5. Indeterminate 18 mm left breast mass. Clinical correlation and outpatient diagnostic mammography recommended. ECG Data Attestation: I personally reviewed and interpreted this ECG as follows: Interpretation: The patient had an EKG done on arrival that shows a sinus rhythm heart rate varus duration is 102 ms, QTC [address] segment elevation, T waves are inverted in aVL, V1. Discharge Plan Discharge Disposition Patient Disposition: 30 Still Patient Discharge Details Diagnosis: Non-ST elevated myocardial infarction (non-STEMI) Physicians Team ED Provider: Juany Johnson Primary Care Provider: Primary Care Ana María Morel Attending Provider: Parmjit Rivers Other Providers: Stella Urias [employer] Status ED Status: Admitted Patient
[2018-01-28] MEDS ORDERED: Heparin 10,000 UNITS/10 ML Vial (for IV use) IV.PUSH STA (04:11)
[2018-01-28] MEDS: Heparin Drip 25,000 UNIT/250 ML BAG IV.CONT PRN (04:34)
[2018-01-28] MEDS ORDERED: Bisacodyl 10 MG Supp RECTAL PRN (04:59)
[2018-01-28] MEDS ORDERED: Dextrose 50% in Water 50 ML Vial IV.PUSH PRN (05:01)
[2018-01-28] MEDS: Sod Chloride 0.9% Inj 1,000 ML IV.CONT SCH (06:22)
--- NOTE | 2018-01-28 08:23 | P.HP ---
History of Present Illness Primary Care Physician: No Primary Care Physician Chief Complaint: Anxiety History of Present Illness: This is a pleasant 87 y/o Female who came to ER with Shakiness, that started one day before coming to ER, She is also complaining with some shortness of breath. She has not noted any exacerbating or relieving factors. as we know she has Anxiety disorder, Depression, history of Rectal Cancer in remission as of Spring 2011, CAD, status post PCI and Stent placement, Hypertension, Hyperlipidemia, status post Chemotherapy 2008, DM II, Status post Radiation therapy 2008, found CXR no acute disease, UTI started on Rocephin, SIRS criteria. Inpatient Certification: I certify that the inpatient services were ordered in accordance with Medicare regulations governing the order. This includes certification that hospital inpatient services are reasonable and necessary and in the case of services not specified as inpatient-only under 42 CFR 419.22(n), that they are appropriately provided as inpatient services in accordance to with the 2-midnight benchmark under 43 CFR 412.3(e) Estimated Total Length of Stay (Days): 2 Plans for Post Hospital Care: Home Review of Systems All other systems reviewed negative except as stated in HPI PMFSH - History History Provided By: Patient - Medical History Medical History: Medical History (Last Updated 01/28/18 @ 08:20 by Dillon Mccall MD) Chest pain Diabetes History of hysterectomy Hyperlipidemia Hypertension Rectal cancer - Surgical History Surgical History: Surgical History (Last Updated 01/28/18 @ 08:20 by Dillon Mccall MD) H/O heart artery stent History of tonsillectomy Hx of appendectomy - Family History Family History: Family History (Last Updated 01/28/18 @ 17:48 by Dillon Mccall MD) Other Family history of hypertension - Tobacco History Second Hand Smoke Exposure: No Tobacco Use In Past 30 Days: No Smoking Status: Former smoker Tobacco Type: Cigarettes - Alcohol History How Often Do You Have a Drink Containing Alcohol: Never - Substance Use History Substance History: No History of Abuse - Travel History Recent Travel in the [place] Within the Last 8 Weeks: No Recent Travel Out of the Country Within the Last 8 Weeks: No - Immunization History Tetanus Immunization: >5 Years Medications and Allergies Active Medications: Active Medications Al Hydroxide/Mg Hydroxide (Milk Of Magnesia Liq) 30 ml PO Q12H PRN PRN Reason: Mild Constipation Bisacodyl (Dulcolax Supp) 10 mg RECTAL DAILY PRN PRN Reason: SEVERE CONSITIPATION Dextrose (D50w Vial) 50 ml IV.PUSH UNSCH PRN PRN Reason: PER HYPOGLYCEMIA PROTOCOL Glucagon (Glucagon Inj) 1 mg OTHER PRN PRN PRN Reason: for Hypoglycemia Protocol Heparin Sodium/Dextrose (Heparin/D5w 25,000 U/250 Ml) 25,000 unit in 250 mls @ 0 mls/hr IV.CONT TITRATE PRN; Protocol PRN Reason: Per Protocol Last Admin: 01/28/18 04:34 Dose: 900 units/hr, 9 mls/hr Sodium Chloride (Ns Inj) 1,000 mls @ 50 mls/hr IV.CONT .Q20H TATYANA Last Admin: 01/28/18 06:22 Dose: 50 mls/hr Insulin Aspart (Novolog Insulin Correctional Sugar Inj) 0 unit SQ ACHS TATYANA; Protocol Lactulose (Lactulose Liq) 30 ml PO DAILY PRN PRN Reason: SEVERE CONSITIPATION Sennosides (Senokot) 17.2 mg PO Q12H PRN PRN Reason: Moderate Constipation Sodium Chloride (Ns Flush) 2 ml IV.FLUSH UNSCH PRN PRN Reason: FLUSH AFTER USING IV ACCESS Allergies Allergy/AdvReac Type Severity Reaction Status Date / Time penicillin G Allergy Severe UNKNOWN Unverified 04/29/17 17:43 Sulfa (Sulfonamide Allergy Severe UNKNOWN Unverified 04/29/17 17:43 Antibiotics) Home Medications Medication Instructions Recorded Confirmed Type Unable to Obtain Home Meds 01/28/18 01/28/18 History Exam Vital signs: Vital Signs 01/28/18 02:04 01/28/18 02:16 01/28/18 03:00 Temperature 98.4 F Pulse Rate 84 63 Respiratory Rate 16 15 Blood Pressure 138/70 139/64 Pulse Oximetry 99 99 95 01/28/18 03:47 01/28/18 03:54 01/28/18 05:36 Temperature Pulse Rate 85 70 Respiratory Rate 16 17 16 Blood Pressure 148/66 H 134/63 Pulse Oximetry 96 95 01/28/18 06:39 Temperature 98.0 F Pulse Rate 80 Respiratory Rate 18 Blood Pressure 144/79 H Pulse Oximetry 98 Intake & Output 01/27/18 01/28/18 01/28/18 18:59 06:59 18:59 Intake Total 0 / 0 Balance 0 / 0 Weight 89.6 kg Intake: Oral 0 / 0 Other: Weight On Admission 74.843 kg Narrative: GENERAL: This is a well-nourished, well-developed patient, in no apparent distress. CARDIOVASCULAR: Regular rate and rhythm without murmurs, gallops, or rubs. RESPIRATORY: Clear to auscultation. Breath sounds equal bilaterally. No wheezes , rales, or rhonchi. GASTROINTESTINAL: Abdomen soft, non-tender, nondistended. Normal active bowel sounds MUSCULOSKELETAL: Extremities without clubbing, cyanosis, or edema. NEURO: Alert & Oriented x4 to person, place, time, situation. Moves all ext x4 Results - Labs CBC & Chem 7: 01/28/18 10:53 01/28/18 02:20 Labs: Laboratory Results - last 24 hr 01/28/18 01/28/18 01/28/18 02:20 02:20 02:20 WBC 7.4 RBC 3.99 L Hgb 11.6 Hct 35.2 MCV 88.2 MCH 29.2 MCHC 33.1 RDW 15.7 Plt Count 171 MPV 10.4 Neut % (Auto) 69.0 Lymph % (Auto) 15.8 [place] % (Auto) 10.3 H Eos % (Auto) 4.2 H Baso % (Auto) 0.7 Neut # (Auto) 5.1 Lymph # (Auto) 1.2 [place] # (Auto) 0.8 Eos # (Auto) 0.3 Baso # (Auto) 0.1 WBC Differential . Differential Comment Auto diff final PT INR APTT D-Dimer Quant (PE/DVT) Sodium 139 Potassium 4.2 Chloride 103 Carbon Dioxide 29.1 Anion Gap 7 BUN 33 H Creatinine 1.17 H Estimated GFR 44 L Random Glucose 293 H Calcium 8.2 L Magnesium 2.0 Total Bilirubin 0.3 AST 21 ALT 22 Alkaline Phosphatase 76 Total Creatine Kinase 68 Troponin I 0.11 H B-Natriuretic Peptide 114 H Total Protein 7.3 Albumin 3.3 L Lipase 44 L 01/28/18 02:20 WBC RBC Hgb Hct MCV MCH MCHC RDW Plt Count MPV Neut % (Auto) Lymph % (Auto) [place] % (Auto) Eos % (Auto) Baso % (Auto) Neut # (Auto) Lymph # (Auto) [place] # (Auto) Eos # (Auto) Baso # (Auto) WBC Differential Differential Comment PT 10.4 INR 1.0 APTT 25.7 D-Dimer Quant (PE/DVT) 1.40 H Sodium Potassium Chloride Carbon Dioxide Anion Gap BUN Creatinine Estimated GFR Random Glucose Calcium Magnesium Total Bilirubin AST ALT Alkaline Phosphatase Total Creatine Kinase Troponin I B-Natriuretic Peptide Total Protein Albumin Lipase - Imaging Impressions Chest X-Ray 01/28/18 02:13 CONCLUSION: Minimal left base atelectasis. Otherwise negative and unchanged. Chest CTA 01/28/18 03:00 CONCLUSION: 1. No pulmonary embolus. 2. Distended main pulmonary artery. The differential includes jet phenomenon from pulmonic stenosis and pulmonary hypertension. 3. Coronary artery, valvular and thoracic aortic calcification. 4. Nodules of the thyroid and characterization with outpatient thyroid ultrasound is recommended. 5. Indeterminate 18 mm left breast mass. Clinical correlation and outpatient diagnostic mammography recommended. Caprini VTE Risk Assessment Caprini VTE Risk Assessment: Moderate/High Risk (score >= 2) Caprini Risk Assessment Model: Point Value = 1 Point Value = 2 Point Value = 3 Point Value = 5 Age 41-60 Minor surgery BMI > 25 kg/m2 Swollen legs Varicose veins or History of unexplained or recurrent spontaneous Oral contraceptives or hormone replacement Sepsis (< 1 month) Serious lung disease, including pneumonia (< 1 month) Abnormal pulmonary function Acute myocardial infarction Congestive heart failure (< 1 month) History of inflammatory bowel disease Medical patient at bed rest Age 61-74 Arthroscopic surgery Major open surgery (> 45 min) Laparoscopic surgery (> 45 min) Malignancy Confined to bed (> 72 hours) Immobilizing plaster cast Central venous access Age >= 75 History of VTE Family history of VTE Factor V Leiden Prothrombin [id number] Lupus anticoagulant Anticardiolipin antibodies Elevated serum homocysteine Heparin-induced thrombocytopenia Other congenital or acquired thrombophilia Stroke (< 1 month) Elective arthroplasty Hip, pelvis, or leg fracture Acute spinal cord injury (< 1 month) Prophylaxis Regimen: Total Risk Factor Score Risk Level Prophylaxis Regimen 0-1 Low Early ambulation 2 Moderate Order ONE of the following: *Sequential Compression Device (SCD) *Heparin 5000 units SQ BID 3-4 Higher Order ONE of the following medications: *Heparin 5000 units SQ TID *Enoxaparin/Lovenox 40 mg SQ daily (WT < 150 kg, CrCl > 30 mL/min) *Enoxaparin/Lovenox 30 mg SQ daily (WT < 150 kg, CrCl > 10-29 mL/min) *Enoxaparin/Lovenox 30 mg SQ BID (WT < 150 kg, CrCl > 30 mL/min) AND/OR *Sequential Compression Device (SCD) 5 or more Highest Order ONE of the following medications: *Heparin 5000 units SQ TID (Preferred with Epidurals) *Enoxaparin/Lovenox 40 mg SQ daily (WT < 150 kg, CrCl > 30 mL/min) *Enoxaparin/Lovenox 30 mg SQ daily (WT < 150 kg, CrCl > 10-29 mL/min) *Enoxaparin/Lovenox 30 mg SQ BID (WT < 150 kg, CrCl > 30 mL/min) AND *Sequential Compression Device (SCD) Assessment and Plan - Plan 1. NSTEMI Seen by design engineering specialist recommended to continue heparin drip, Aspirin, Plavix Lipitor, Metoprolol, consider adding Imdur as second agent. check TTE, if abnormal to consider for Cardiac Cath. the patient wants conservative approach 2. Anxiety disorder and Depression to continue Home medicines. 3. CAD status post PCI and Stent placement 4. Rectal cancer in remission as of Spring 2011. status post chemotherapy and Radiation therapy in 2008. 5. Hypertension controlled 6. Hypertension continue Statins 7. DM II continue sliding scale DVT prophylaxis with heparin drip. Code Status: Full code. Discussed Condition With: Patient and Nurse Miss Arita, and design engineering specialist Doctor Kerrie Macias. Discharge Planning: Once cleared by specialists.
[2018-01-28] MEDS: Insulin NovoLOG Aspart Correctional Sugar Inj SQ SCH ×4 (09:33→21:33)
[2018-01-28 11:02] LABS: Hematocrit 34.8 % (35.0-46.0); Hemoglobin 11.8 gm/dL (11.6-15.3); Mean Corpuscular HGB Conc 33.8 % (32.0-36.0); Mean Corpuscular Hemoglobin 29.2 pg (27.0-34.0); Mean Corpuscular Volume 86.3 fL (80.0-100.0); Mean Platelet Volume 9.8 fL (7.0-11.0); Platelet Count 153 th/mm3 (150-450); Red Blood Count 4.03 mil/mm3 (4.00-5.30); Red Cell Distribution Width 15.6 % (11.6-17.2)
--- NOTE | 2018-01-28 12:35 | P.CONCA ---
History of Present Illness Primary Care Provider: No Primary Care Physician Chief Complaint: Anxiety PMFSH - History History Provided By: Patient - Medical History Medical History: Medical History (Last Updated 01/28/18 @ 08:20 by Dillon Mccall MD) Chest pain Diabetes History of hysterectomy Hyperlipidemia Hypertension Rectal cancer - Surgical History Surgical History: Surgical History (Last Updated 01/28/18 @ 08:20 by Dillon Mccall MD) H/O heart artery stent History of tonsillectomy Hx of appendectomy - Tobacco History Second Hand Smoke Exposure: No Tobacco Use In Past 30 Days: No Smoking Status: Former smoker Tobacco Type: Cigarettes - Alcohol History How Often Do You Have a Drink Containing Alcohol: Never - Substance Use History Substance History: No History of Abuse - Travel History Recent Travel in the [place] Within the Last 8 Weeks: No Recent Travel Out of the Country Within the Last 8 Weeks: No - Immunization History Tetanus Immunization: >5 Years Medications and Allergies Active Medications: Active Medications Al Hydroxide/Mg Hydroxide (Milk Of Magnesia Liq) 30 ml PO Q12H PRN PRN Reason: Mild Constipation Bisacodyl (Dulcolax Supp) 10 mg RECTAL DAILY PRN PRN Reason: SEVERE CONSITIPATION Dextrose (D50w Vial) 50 ml IV.PUSH UNSCH PRN PRN Reason: PER HYPOGLYCEMIA PROTOCOL Glucagon (Glucagon Inj) 1 mg OTHER PRN PRN PRN Reason: for Hypoglycemia Protocol Heparin Sodium/Dextrose (Heparin/D5w 25,000 U/250 Ml) 25,000 unit in 250 mls @ 0 mls/hr IV.CONT TITRATE PRN; Protocol PRN Reason: Per Protocol Last Admin: 01/28/18 04:34 Dose: 900 units/hr, 9 mls/hr Sodium Chloride (Ns Inj) 1,000 mls @ 50 mls/hr IV.CONT .Q20H TATYANA Last Admin: 01/28/18 06:22 Dose: 50 mls/hr Insulin Aspart (Novolog Insulin Correctional Sugar Inj) 0 unit SQ ACHS TATYANA; Protocol Last Admin: 01/28/18 09:33 Dose: 3 unit Lactulose (Lactulose Liq) 30 ml PO DAILY PRN PRN Reason: SEVERE CONSITIPATION Sennosides (Senokot) 17.2 mg PO Q12H PRN PRN Reason: Moderate Constipation Sodium Chloride (Ns Flush) 2 ml IV.FLUSH UNSCH PRN PRN Reason: FLUSH AFTER USING IV ACCESS Allergies Allergy/AdvReac Type Severity Reaction Status Date / Time penicillin G Allergy Severe UNKNOWN Unverified 04/29/17 17:43 Sulfa (Sulfonamide Allergy Severe UNKNOWN Unverified 04/29/17 17:43 Antibiotics) Home Medications Medication Instructions Recorded Confirmed Type Unable to Obtain Home Meds 01/28/18 01/28/18 History Exam Vital signs: Vital Signs 01/28/18 02:04 01/28/18 02:16 01/28/18 03:00 Temperature 98.4 F Pulse Rate 84 63 Respiratory Rate 16 15 Blood Pressure 138/70 139/64 Pulse Oximetry 99 99 95 01/28/18 03:47 01/28/18 03:54 01/28/18 05:36 Temperature Pulse Rate 85 70 Respiratory Rate 16 17 16 Blood Pressure 148/66 H 134/63 Pulse Oximetry 96 95 01/28/18 06:39 01/28/18 08:00 01/28/18 09:00 Temperature 98.0 F 98.0 F Pulse Rate 80 75 80 Respiratory Rate 18 18 Blood Pressure 144/79 H 128/6 L Pulse Oximetry 98 98 Intake & Output 01/27/18 01/28/18 01/28/18 18:59 06:59 18:59 Intake Total 0 / 0 Balance 0 / 0 Weight 89.6 kg Intake: Oral 0 / 0 Other: Weight On Admission 74.843 kg Results 01/28/18 10:53 01/28/18 02:20 Cardiac Enzymes 01/28/18 01/28/18 01/28/18 Range/Units 02:20 02:20 10:53 AST 21 (15-37) U/L Troponin I 0.11 H 0.96 H* D (0.02-0.05) ng/mL B-Natriuretic Peptide 114 H (0-100) pg/mL Coagulation 01/28/18 01/28/18 01/28/18 Range/Units 02:20 02:20 10:53 PT 10.4 (9.8-11.6) sec APTT 25.7 39.2 H D (24.3-30.1) sec B-Natriuretic Peptide 114 H (0-100) pg/mL CBC 01/28/18 01/28/18 Range/Units 02:20 10:53 WBC 7.4 6.0 (4.0-11.0) th/mm3 RBC 3.99 L 4.03 (4.00-5.30) mil/mm3 Hgb 11.6 11.8 (11.6-15.3) gm/dL Hct 35.2 34.8 L (35.0-46.0) % Plt Count 171 153 (150-450) th/mm3 Neut # (Auto) 5.1 (1.8-7.7) th/mm3 Lymph # (Auto) 1.2 (1.0-4.8) th/mm3 [place] # (Auto) 0.8 (0.0-0.9) th/mm3 Eos # (Auto) 0.3 (0.0-0.4) th/mm3 Baso # (Auto) 0.1 (0.0-0.2) th/mm3 Comprehensive Metabolic Panel 01/28/18 Range/Units 02:20 Sodium 139 (136-145) meq/L Potassium 4.2 (3.5-5.1) meq/L Chloride 103 (98-107) meq/L Carbon Dioxide 29.1 (21.0-32.0) meq/L BUN 33 H (7-18) mg/dL Creatinine 1.17 H (0.50-1.00) mg/dL Calcium 8.2 L (8.5-10.1) mg/dL AST 21 (15-37) U/L ALT 22 (10-53) U/L Alkaline Phosphatase 76 (45-117) U/L Total Protein 7.3 (6.4-8.2) g/dL Albumin 3.3 L (3.4-5.0) g/dL Intake and Output 01/27/18 01/28/18 01/28/18 22:59 06:59 14:59 Intake Total 0 / 0 Balance 0 / 0 Intake: Oral 0 / 0 Other: Weight 89.6 kg Weight On Admission 74.843 kg - Imaging and Cardiology Imaging: Impressions Chest X-Ray 01/28/18 02:13 CONCLUSION: Minimal left base atelectasis. Otherwise negative and unchanged. Chest CTA 01/28/18 03:00 CONCLUSION: 1. No pulmonary embolus. 2. Distended main pulmonary artery. The differential includes jet phenomenon from pulmonic stenosis and pulmonary hypertension. 3. Coronary artery, valvular and thoracic aortic calcification. 4. Nodules of the thyroid and characterization with outpatient thyroid ultrasound is recommended. 5. Indeterminate 18 mm left breast mass. Clinical correlation and outpatient diagnostic mammography recommended. Assessment and Plan - Plan NSTEMI -patient prefers medical therapy for now. Will continue Heparin gtt. Add ASA, Plavix. Lipitor, and Metoprolol. Consider adding Imdur as second agen. -will check TTE, if very abnormal may consider cath. Again, patient leaning towards a more conservative approach.
--- NOTE | 2018-01-28 18:16 | ECG ---
Date Performed: 01/28/2018 Time Performed: 03:41:55 PTAGE: 87 years EKG: Sinus rhythm WITH FIRST DEGREE AV BLOCK PATTERN CONSISTENT WITH PULMONARY DISEASE LEFT ANTERIOR FASCICULAR BLOCK POSSIBLE SEPTAL MYOCARDIAL INFARCTION ABNORMAL ECG PREVIOUS TRACING 01/28/18 @ 02.06 AM Since the previous tracing, no significant change n oted DOCTOR: Roman Barth Interpretating Date/Time 01/28/2018 18:14:56
--- NOTE | 2018-01-28 18:17 | ECG ---
Date Performed: 01/28/2018 Time Performed: 02:06:04 PTAGE: 87 years EKG: Sinus rhythm PATTERN CONSISTENT WITH PULMONARY DISEASE LEFT ANTERIOR FASCICULAR BLOCK MODERATE VOLTAGE CRITERIA F OR LVH, CONSIDER NORMAL VARIANT POSSIBLE SEPTAL MYOCARDIAL INFARCTION ABNORMAL ECG PREVIOUS TRACING : 10/18/2016 11.47 Since the previous tracing, no significant change noted DOCTOR: Roman Barth Interpretating Date/Time 01/28/2018 18:15:13
--- NOTE | 2018-01-28 20:26 | ECHRPT ---
Indication: NSTEMI CONCLUSIONS Normal left ventricular size. Moderate concentric left ventricular hypertrophy. The left ventricular systolic function is low normal with an estimated ejection fraction in the rang e of 50- 55%. No regional wall motion. The left atrial size is mildly dilated. Moderate mitral annular calcification. Mild mitral valve regurgitation. Aortic valve sclerosis is present. Trace aortic valve regurgitation. Mild thickening of the aortic valve leaflets. There is trace tricuspid valve regurgitation. The estimated pulmonary arterial pressure is 22 mmHg. Mild pulmonary valve regurgitation. BP: / HR: Rhythm: MEASUREMENTS (Male / Female) Normal Values Technical Quality: 2D ECHO LV Diastolic Diameter PLAX 4.5 cm 4.2 - 5.9 / 3.9 - 5.3 cm LV Systolic Diameter PLAX 3.4 cm IVS Diastolic Thickness 1.5 cm 0.6 - 1.0 / 0.6 - 0.9 cm LVPW Diastolic Thickness 0.7 cm 0.6 - 1.0 / 0.6 - 0.9 cm LV Relative Wall Thickness 0.5 RV Internal Dim ED PLAX 2.6 cm LVOT Diameter 2.0 cm LA Systolic Diameter LX 4.0 cm 3.0 - 4.0 / 2.7 - 3.8 cm M-MODE AV Cusp Separation MM 1.3 cm DOPPLER AV Peak Velocity 229.3 cm/s AV Peak Gradient 21.0 mmHg LVOT Peak Velocity 102.0 cm/s LVOT Peak Gradient 4.2 mmHg AV Area Cont Eq pk 1.4 cm MV Peak Velocity 144.5 cm/s MV Peak Gradient 8.4 mmHg MV Mean Velocity 95.3 cm/s MV Mean Gradient 4.0 mmHg MV Area PHT 5.2 cm MR Peak Velocity 511.0 cm/s MR Peak Gradient 104.4 mmHg Mitral E Point Velocity 140.0 cm/s Mitral A Point Velocity 119.0 cm/s Mitral E to A Ratio 1.2 TR Peak Velocity 209.3 cm/s TR Peak Gradient 17.5 mmHg FINDINGS LEFT VENTRICLE Normal left ventricular size. Moderate concentric left ventricular hypertrophy. The left ventricular systolic function is low normal with an estimated ejection fraction in the rang e of 50- 55%. RIGHT VENTRICLE Normal right ventricular size and systolic function. LEFT ATRIUM The left atrial size is mildly dilated. RIGHT ATRIUM The right atrial size is normal. ATRIAL SEPTUM Normal atrial septal thickness without atrial level shunting by limited color doppler interrogation. AORTA The aortic root and proximal ascending aorta are normal in size on limited imaging. MITRAL VALVE Moderate mitral annular calcification. Mild mitral valve regurgitation. AORTIC VALVE Aortic valve sclerosis is present. Trace aortic valve regurgitation. Mild thickening of the aortic valve leaflets. TRICUSPID VALVE There is trace tricuspid valve regurgitation. The estimated pulmonary arterial pressure is 22 mmHg. PULMONARY VALVE Mild pulmonary valve regurgitation. VESSELS The inferior vena cava is normal in size. PERICARDIUM No pericardial effusion. Kerrie Macias MD (Electronically Signed) Final Date:28 January 2018 20:25
[2018-01-28] MEDS ORDERED: ALPRAZolam 0.25 MG Tablet PO ONE (20:31)
[2018-01-28] MEDS ORDERED: Isosorbide Mononitrate 30 MG ER 24HR Tablet (Imdur) PO ONE (21:30)
[2018-01-29] MEDS: Sod Chloride 0.9% Inj 1,000 ML IV.CONT SCH (00:47)
[2018-01-29 02:16] LABS: Hematocrit 33.4 % (35.0-46.0); Hemoglobin 11.3 gm/dL (11.6-15.3); Mean Corpuscular HGB Conc 33.9 % (32.0-36.0); Mean Corpuscular Volume 85.6 fL (80.0-100.0); Mean Platelet Volume 9.9 fL (7.0-11.0); Platelet Count 158 th/mm3 (150-450); Red Cell Distribution Width 15.7 % (11.6-17.2); White Blood Count 7.9 th/mm3 (4.0-11.0)
[2018-01-29] MEDS: Heparin Drip 25,000 UNIT/250 ML BAG IV.CONT PRN (03:10)
[2018-01-29 07:41] LABS: Bacteria,Urine Rare /hpf; Bilirubin,Urine Negative (Negative); Clarity,Urine Hazy (Clear); Color,Urine Straw (Yellw/Straw); Glucose,Urine (UA) Negative (Negative); Leukocyte Esterase,Urine Negative (Negative); Nitrite,Urine Negative (Negative); Specific Gravity,Urine 1.009 (1.002-1.035); Squamous Epithelial Cell,Urine 3 /hpf (0-5)
[2018-01-29] MEDS: Insulin NovoLOG Aspart Correctional Sugar Inj SQ SCH (08:49)
[2018-01-29] MEDS ORDERED: LORazepam 0.5 MG Tablet PO PRN (08:52)
[2018-01-29 09:02] VITALS: O2SAT 98
--- NOTE | 2018-01-29 09:38 | P.PN ---
Subjective Interval history: This is a pleasant 87 y/o Female who came to ER with Shakiness, that started one day before coming to ER, She is also complaining with some shortness of breath. She has not noted any exacerbating or relieving factors. as we know she has Anxiety disorder, Depression, history of Rectal Cancer in remission as of Spring 2011, CAD, status post PCI and Stent placement, Hypertension, Hyperlipidemia, status post Chemotherapy 2008, DM II, Status post Radiation therapy 2008, found CXR no acute disease, UTI started on Rocephin, SIRS criteria. 01/29: Seen her in her bedroom, stable discussed with av specialist Doctor Kerrie Macias recommended for discharge and continue Medical management, no nausea, vomit or diarrhea. Physical Exam Vital signs: Vital Signs 01/28/18 12:00 01/28/18 16:00 01/28/18 19:00 Temperature 97.9 F 98.0 F Pulse Rate 76 88 76 Respiratory Rate 20 14 Blood Pressure 120/64 166/75 H Pulse Oximetry 97 01/28/18 20:00 01/28/18 21:00 01/28/18 21:58 Temperature 98.3 F Pulse Rate 76 90 Respiratory Rate 16 Blood Pressure 131/72 Pulse Oximetry 97 01/28/18 22:00 01/28/18 23:00 01/28/18 23:30 Temperature 98.9 F Pulse Rate 78 64 82 Respiratory Rate 16 Blood Pressure 138/68 Pulse Oximetry 01/29/18 00:00 01/29/18 01:00 01/29/18 02:00 Temperature Pulse Rate 86 68 70 Respiratory Rate 16 Blood Pressure Pulse Oximetry 01/29/18 03:00 01/29/18 04:00 01/29/18 05:00 Temperature 98.4 F Pulse Rate 77 75 62 Respiratory Rate 16 Blood Pressure 141/82 H Pulse Oximetry 01/29/18 06:00 01/29/18 08:00 01/29/18 08:56 Temperature 98.6 F 98 F Pulse Rate 80 86 75 Respiratory Rate 16 18 Blood Pressure 130/40 L 144/74 H Pulse Oximetry 95 01/29/18 09:00 Temperature Pulse Rate Respiratory Rate Blood Pressure Pulse Oximetry 98 Intake & Output 01/28/18 01/29/18 01/29/18 18:59 06:59 18:59 Intake Total 720 / 720 1730 / 1730 Output Total 1000 / 1000 2250 / 2250 Balance -280 / -280 -520 / -520 Weight 90.8 kg Intake: IV 1250 / 1250 Heparin/D5W 25,000 U/250 mL 25, 250 / 250 000 unit In 250 ml @ Per Protocol IV.CONT TITRATE PRN Rx #:[id number] NS Inj 1,000 ML @ 50 mls/hr IV. 1000 / 1000 CONT .Q20H TATYANA Rx#:[id number] Oral 720 / 720 480 / 480 Output: Urine 1000 / 1000 2250 / 2250 Other: Date of Last Bowel Movement 01/29/18 01/29/18 # Bowel Movements 1 Narrative: GENERAL: This is a well-nourished, well-developed patient, in no apparent distress. CARDIOVASCULAR: Regular rate and rhythm without murmurs, gallops, or rubs. RESPIRATORY: Clear to auscultation. Breath sounds equal bilaterally. No wheezes , rales, or rhonchi. GASTROINTESTINAL: Abdomen soft, non-tender, nondistended. Normal active bowel sounds MUSCULOSKELETAL: Extremities without clubbing, cyanosis, or edema. NEURO: Alert & Oriented x4 to person, place, time, situation. Moves all ext x4 Results - Labs CBC & Chem 7: 01/29/18 02:05 01/28/18 02:20 Laboratory Results - last 24 hr 01/28/18 01/28/18 01/28/18 10:53 10:53 10:53 WBC 6.0 RBC 4.03 Hgb 11.8 Hct 34.8 L MCV 86.3 MCH 29.2 MCHC 33.8 RDW 15.6 Plt Count 153 MPV 9.8 APTT 39.2 H D POC Glucose Troponin I 0.96 H* D Urine Color Urine Clarity Urine pH Ur Specific [place] Urine Protein Urine Glucose (UA) Urine Ketones Urine Occult Blood Urine Nitrate Urine Bilirubin Urine Urobilinogen Ur Leukocyte Esterase Urine RBC Urine WBC Ur Squamous Epith Cells Urine Bacteria Micro UA Comment Ur Microscopic Review Urine Culture Comments 01/28/18 01/28/18 01/28/18 13:57 15:08 16:56 WBC RBC Hgb Hct MCV MCH MCHC RDW Plt Count MPV APTT POC Glucose 167 H 158 H Troponin I 1.08 H* D Urine Color Urine Clarity Urine pH Ur Specific [place] Urine Protein Urine Glucose (UA) Urine Ketones Urine Occult Blood Urine Nitrate Urine Bilirubin Urine Urobilinogen Ur Leukocyte Esterase Urine RBC Urine WBC Ur Squamous Epith Cells Urine Bacteria Micro UA Comment Ur Microscopic Review Urine Culture Comments 01/28/18 01/28/18 01/29/18 19:26 21:22 02:05 WBC 7.9 RBC 3.90 L Hgb 11.3 L Hct 33.4 L MCV 85.6 MCH 29.0 MCHC 33.9 RDW 15.7 Plt Count 158 MPV 9.9 APTT 35.2 H POC Glucose 166 H Troponin I Urine Color Urine Clarity Urine pH Ur Specific [place] Urine Protein Urine Glucose (UA) Urine Ketones Urine Occult Blood Urine Nitrate Urine Bilirubin Urine Urobilinogen Ur Leukocyte Esterase Urine RBC Urine WBC Ur Squamous Epith Cells Urine Bacteria Micro UA Comment Ur Microscopic Review Urine Culture Comments 01/29/18 01/29/18 01/29/18 02:05 06:15 07:42 WBC RBC Hgb Hct MCV MCH MCHC RDW Plt Count MPV APTT 38.6 H POC Glucose 239 H Troponin I Urine Color Straw Urine Clarity Hazy H Urine pH 7.0 Ur Specific [place] 1.009 Urine Protein Negative Urine Glucose (UA) Negative Urine Ketones Negative Urine Occult Blood Negative Urine Nitrate Negative Urine Bilirubin Negative Urine Urobilinogen Less than 2 Ur Leukocyte Esterase Negative Urine RBC Less than 1 Urine WBC Less than 1 Ur Squamous Epith Cells 3 Urine Bacteria Rare H Micro UA Comment Culture not ind Ur Microscopic Review Not Reportable Urine Culture Comments Culture not ind - Imaging Chest X-Ray 01/28/18 02:13 CONCLUSION: Minimal left base atelectasis. Otherwise negative and unchanged. Chest CTA 01/28/18 03:00 CONCLUSION: 1. No pulmonary embolus. 2. Distended main pulmonary artery. The differential includes jet phenomenon from pulmonic stenosis and pulmonary hypertension. 3. Coronary artery, valvular and thoracic aortic calcification. 4. Nodules of the thyroid and characterization with outpatient thyroid ultrasound is recommended. 5. Indeterminate 18 mm left breast mass. Clinical correlation and outpatient diagnostic mammography recommended. - Procedures None Assessment and Plan - Plan 1. NSTEMI Seen by av specialist recommended to continue heparin drip, Aspirin, Plavix Lipitor, Metoprolol, consider adding Imdur as second agent. check TTE, if abnormal to consider for Cardiac Cath. the patient wants conservative approach, discussed with av specialist doctor Kerrie Macias recommended for discharge on medical Management. 2. Anxiety disorder and Depression to continue Home medicines. patient asking for Anxiolytic Medicine when search performed for [facility] [place] states she received 120 tablets recently no need to refill this medicine at this time. 3. CAD status post PCI and Stent placement 4. Rectal cancer in remission as of Spring 2011. status post chemotherapy and Radiation therapy in 2008. 5. Hypertension controlled 6. Hypertension continue Statins 7. DM II continue sliding scale, the patient states she is been managed by Endocrinology with Insulin at home and does not need to get any medicine for this. DVT prophylaxis with heparin drip. Code Status: Full code. Discussed Condition With: Patient and Nurse Miss [place] av specialist Doctor Kerrie Macias. Discharge Planning: Discharge Home now.
--- NOTE | 2018-01-29 11:14 | P.DCO ---
- Diagnosis (1) Non-ST elevated myocardial infarction (non-STEMI) Status: Acute - Physical Therapy Order: Evaluate and treat, Improve ambulation, Strength and gait training - Home Health Nursing Order: Medical education, Signs/symptoms of disease process, Medication education-adverse effect, Nursing assessment with vital signs - Case Management Consult Yes - Certification I have seen patient Olimpia Arvizu on 01/29/18. My clinical findings support the need for the requested home health care services because: Deconditioned with increased weakness I certify that my clinical findings support that this patient is homebound because: Unsafe to leave home unassisted
[2018-01-29 11:49] VITALS: BP 150/73; PULSE 82; RESP 16; TEMP 98.5
--- NOTE | 2018-01-29 14:55 | ECG ---
Date Performed: 01/28/2018 Time Performed: 11:40:10 PTAGE: 87 years EKG: Sinus bradycardia. Left anterior fascicular block Anterolateral T wave changes may be due t o myocardial ischemia Since the previous tracing, no significant change noted Abnormal ECG PREVIOUS TRACING : 01/28/2018 03.41 DOCTOR: Cas Ro Interpretating Date/Time 01/29/2018 14:49:49
--- NOTE | 2018-01-29 16:02 | P.DS ---
Date of admission: 01/28/18 04:54 Primary care physician: No Primary Care Physician Attending physician on discharge: Dillon Mccall Anticipated date of discharge: 01/29/18 Brief History from admission: This is a pleasant 87 y/o Female who came to ER with Shakiness, that started one day before coming to ER, She is also complaining with some shortness of breath. She has not noted any exacerbating or relieving factors. as we know she has Anxiety disorder, Depression, history of Rectal Cancer in remission as of Spring 2011, CAD, status post PCI and Stent placement, Hypertension, Hyperlipidemia, status post Chemotherapy 2008, DM II, Status post Radiation therapy 2008, found CXR no acute disease, UTI started on Rocephin, SIRS criteria. DS: Diagnosis - Discharge Diagnosis (1) Non-ST elevated myocardial infarction (non-STEMI) Status: Acute DS: Medications - Discharge Medications Prescriptions: aspirin 81 mg PO DAILY #30 tab atorvastatin 40 mg PO HS #30 tab clopidogrel [Plavix] 75 mg PO DAILY #30 tab metoprolol succinate 25 mg PO DAILY #30 tab DS: Summary Hospital Course: This is a pleasant 87 y/o Female who came to ER with Shakiness, that started one day before coming to ER, She is also complaining with some shortness of breath. She has not noted any exacerbating or relieving factors. as we know she has Anxiety disorder, Depression, history of Rectal Cancer in remission as of Spring 2011, CAD, status post PCI and Stent placement, Hypertension, Hyperlipidemia, status post Chemotherapy 2008, DM II, Status post Radiation therapy 2008, found CXR no acute disease, UTI started on Rocephin, SIRS criteria. 01/29: Seen her in her bedroom, stable discussed with student education specialist Doctor Kerrie Macias recommended for discharge and continue Medical management, no nausea, vomit or diarrhea. Assessment and Plan - Plan 1. NSTEMI Seen by student education specialist recommended to continue heparin drip, Aspirin, Plavix Lipitor, Metoprolol, consider adding Imdur as second agent. check TTE, if abnormal to consider for Cardiac Cath. the patient wants conservative approach, discussed with student education specialist doctor Kerrie Macias recommended for discharge on medical Management. 2. Anxiety disorder and Depression to continue Home medicines. patient asking for Anxiolytic Medicine when search performed for [facility] states she received 120 tablets recently no need to refill this medicine at this time. 3. CAD status post PCI and Stent placement 4. Rectal cancer in remission as of Spring 2011. status post chemotherapy and Radiation therapy in 2008. 5. Hypertension controlled 6. Hypertension continue Statins 7. DM II continue sliding scale, the patient states she is been managed by Endocrinology with Insulin at home and does not need to get any medicine for this. DVT prophylaxis with heparin drip. Code Status: Full code. Discussed Condition With: Patient and Nurse Miss [place] student education specialist Doctor Kerrie Macias. Discharge Planning: Discharge Home now. - Time Spent with Patient Total time spent providing and/or coordinating discharge services: Less than 30 minutes - Quality: VTE Deep Vein Thrombosis/Pulmonary Embolism Present on Admission: No Exam Vital signs: Vital Signs 01/28/18 19:00 01/28/18 20:00 01/28/18 21:00 Temperature 98.3 F Pulse Rate 76 76 90 Respiratory Rate 16 Blood Pressure 131/72 Pulse Oximetry 01/28/18 21:58 01/28/18 22:00 01/28/18 23:00 Temperature Pulse Rate 78 64 Respiratory Rate Blood Pressure Pulse Oximetry 97 01/28/18 23:30 01/29/18 00:00 01/29/18 01:00 Temperature 98.9 F Pulse Rate 82 86 68 Respiratory Rate 16 16 Blood Pressure 138/68 Pulse Oximetry 01/29/18 02:00 01/29/18 03:00 01/29/18 04:00 Temperature 98.4 F Pulse Rate 70 77 75 Respiratory Rate 16 Blood Pressure 141/82 H Pulse Oximetry 01/29/18 05:00 01/29/18 06:00 01/29/18 07:00 Temperature Pulse Rate 62 80 77 Respiratory Rate Blood Pressure Pulse Oximetry 01/29/18 08:00 01/29/18 08:30 01/29/18 08:56 Temperature 98.6 F 98 F Pulse Rate 86 80 75 Respiratory Rate 16 18 Blood Pressure 130/40 L 144/74 H Pulse Oximetry 95 01/29/18 09:00 01/29/18 10:00 01/29/18 11:00 Temperature Pulse Rate 88 86 84 Respiratory Rate Blood Pressure Pulse Oximetry 98 01/29/18 11:48 Temperature 98.5 F Pulse Rate 82 Respiratory Rate 16 Blood Pressure 150/73 H Pulse Oximetry 98 Intake & Output 01/28/18 01/29/18 01/29/18 18:59 06:59 18:59 Intake Total 720 / 720 1730 / 1730 240 / 240 Output Total 1000 / 1000 2250 / 2250 800 / 800 Balance -280 / -280 -520 / -520 -560 / -560 Weight 90.8 kg Intake: IV 1250 / 1250 Heparin/D5W 25,000 U/250 mL 25, 250 / 250 000 unit In 250 ml @ Per Protocol IV.CONT TITRATE PRN Rx #:[id number] NS Inj 1,000 ML @ 50 mls/hr IV. 1000 / 1000 CONT .Q20H TATYANA Rx#:[id number] Oral 720 / 720 480 / 480 240 / 240 Output: Urine 1000 / 1000 2250 / 2250 800 / 800 Other: Date of Last Bowel Movement 01/29/18 01/29/18 # Bowel Movements 1 1 Narrative: GENERAL: This is a well-nourished, well-developed patient, in no apparent distress. CARDIOVASCULAR: Regular rate and rhythm without murmurs, gallops, or rubs. RESPIRATORY: Clear to auscultation. Breath sounds equal bilaterally. No wheezes , rales, or rhonchi. GASTROINTESTINAL: Abdomen soft, non-tender, nondistended. Normal active bowel sounds MUSCULOSKELETAL: Extremities without clubbing, cyanosis, or edema. NEURO: Alert & Oriented x4 to person, place, time, situation. Moves all ext x4 Results Procedures completed during hospitalization: None Labs on day of discharge: Labs from last 24 hours 01/29/18 01/29/18 01/29/18 07:42 06:15 02:05 WBC RBC Hgb Hct MCV MCH MCHC RDW Plt Count MPV APTT 38.6 H POC Glucose 239 H Urine Color Straw Urine Clarity Hazy H Urine pH 7.0 Ur Specific [place] 1.009 Urine Protein Negative Urine Glucose (UA) Negative Urine Ketones Negative Urine Occult Blood Negative Urine Nitrate Negative Urine Bilirubin Negative Urine Urobilinogen Less than 2 Ur Leukocyte Esterase Negative Urine RBC Less than 1 Urine WBC Less than 1 Ur Squamous Epith Cells 3 Urine Bacteria Rare H Micro UA Comment Culture not ind Ur Microscopic Review Not Reportable Urine Culture Comments Culture not ind 01/29/18 01/28/18 01/28/18 02:05 21:22 19:26 WBC 7.9 RBC 3.90 L Hgb 11.3 L Hct 33.4 L MCV 85.6 MCH 29.0 MCHC 33.9 RDW 15.7 Plt Count 158 MPV 9.9 APTT 35.2 H POC Glucose 166 H Urine Color Urine Clarity Urine pH Ur Specific [place] Urine Protein Urine Glucose (UA) Urine Ketones Urine Occult Blood Urine Nitrate Urine Bilirubin Urine Urobilinogen Ur Leukocyte Esterase Urine RBC Urine WBC Ur Squamous Epith Cells Urine Bacteria Micro UA Comment Ur Microscopic Review Urine Culture Comments 01/28/18 16:56 WBC RBC Hgb Hct MCV MCH MCHC RDW Plt Count MPV APTT POC Glucose 158 H Urine Color Urine Clarity Urine pH Ur Specific [place] Urine Protein Urine Glucose (UA) Urine Ketones Urine Occult Blood Urine Nitrate Urine Bilirubin Urine Urobilinogen Ur Leukocyte Esterase Urine RBC Urine WBC Ur Squamous Epith Cells Urine Bacteria Micro UA Comment Ur Microscopic Review Urine Culture Comments - Impressions ITS Impressions Chest X-Ray 01/28/18 02:13 CONCLUSION: Minimal left base atelectasis. Otherwise negative and unchanged. Chest CTA 01/28/18 03:00 CONCLUSION: 1. No pulmonary embolus. 2. Distended main pulmonary artery. The differential includes jet phenomenon from pulmonic stenosis and pulmonary hypertension. 3. Coronary artery, valvular and thoracic aortic calcification. 4. Nodules of the thyroid and characterization with outpatient thyroid ultrasound is recommended. 5. Indeterminate 18 mm left breast mass. Clinical correlation and outpatient diagnostic mammography recommended. Discharge Plan - Discharge Disposition Patient Disposition: W/Home Health Service - Discharge Condition Condition: Stable - Discharge Order Discharge Orders: Discharge Order (Routine); Ordered 01/29/18 Ordered By: Dillon Mccall - Discharge Details Anticipated Discharge Date: 01/29/18 Discharge Comment: Patient refused SNF will go home with [facility] for PT and skilled nurse. - Physicians Team Primary Care Provider: Primary Care Physici,No Attending Provider: Dillon Mccall Other Providers: Stella Urias MD ; [employer] ; [facility]
== END 2018-01-29 13:28 | disposition home health service (06) ==
LOC: NEPE 01:57 → NEDA 04:54 → HCIS 05:56
PROVIDERS: ADMIT Internal Medicine; ATTEND Internal Medicine

== ENCOUNTER 2018-01-31 02:00 | Inpatient (IN) ==
--- NOTE | 2018-01-31 03:09 | ED ---
HPI General Chief Complaint: Chest Pain Stated Complaint: chest pain Time Seen by Provider: 01/31/18 02:13 Source: patient Mode of arrival: EMS Limitations: other History of Present Illness HPI narrative: Patient arrives and states that she has had chest pain since approximately 4 PM today, she is coming from her own home. She describes the pain as substernal pressure nonradiating that did not seem to go away. So she called 911. EMS upon arrival gave the patient aspirin and a sublingual nitro and the patient became symptom-free. Patient has remained symptom free since arriving in the ER. Patient states that she also took a Xanax prior to arrival here hoping that that would help her sleep Related Data Previous Rx's Medication Instructions Recorded aspirin 81 mg PO DAILY #30 tab 01/29/18 atorvastatin 40 mg PO HS #30 tab 01/29/18 clopidogrel [Plavix] 75 mg PO DAILY #30 tab 01/29/18 metoprolol succinate 25 mg PO DAILY #30 tab 01/29/18 Allergies Allergy/AdvReac Type Severity Reaction Status Date / Time penicillin G Allergy Severe UNKNOWN Verified 01/31/18 02:06 Sulfa (Sulfonamide Allergy Severe UNKNOWN Verified 01/31/18 02:06 Antibiotics) Review of Systems ROS: all other systems reviewed are negative [facility] Medical History Medical History Chest pain (Acute) Diabetes (Acute) History of hysterectomy (Acute) Hyperlipidemia (Acute) Hypertension (Acute) Rectal cancer (Acute) Surgical History Surgical History H/O heart artery stent (Acute) History of tonsillectomy (Acute) Hx of appendectomy (Acute) Family History Family History Other Family history of hypertension Social History Social History Substance History: No History of Abuse Second Hand Smoke Exposure: No Smoking Status: Former smoker Tobacco Type: Cigarettes How Often Do You Have a Drink Containing Alcohol: Monthly or less Immunization History Tetanus Immunization: Unsure Exam Narrative Exam Narrative: GENERAL: elderly female SKIN: Focused skin assessment warm/dry. HEAD: Atraumatic. Normocephalic. EYES: Pupils equal and round. No scleral icterus. No injection or drainage. ENT: No nasal bleeding or discharge. Mucous membranes pink and moist. NECK: Trachea midline. No JVD. CARDIOVASCULAR: Regular rate and rhythm. No murmur appreciated. RESPIRATORY: No accessory muscle use. Clear to auscultation. Breath sounds equal bilaterally. GASTROINTESTINAL: Abdomen soft, non-tender, nondistended. Hepatic and splenic margins not palpable. MUSCULOSKELETAL: No obvious deformities. No clubbing. No cyanosis. No edema. NEUROLOGICAL: Awake and alert. No obvious cranial nerve deficits. Motor grossly within normal limits. Normal speech. PSYCHIATRIC: Appropriate mood and affect; insight and judgment normal. Course Initial Documented Vital Signs Temperature 98.7 F 01/31/18 02:11 Pulse Rate 107 H 01/31/18 02:11 Respiratory Rate 18 01/31/18 02:11 Blood Pressure 125/62 01/31/18 02:11 Last Documented Vital Signs Temperature 98.7 F 01/31/18 02:11 Pulse Rate 107 H 01/31/18 02:11 Respiratory Rate 18 01/31/18 02:11 Blood Pressure 125/62 01/31/18 02:11 Medical Decision Making MDM Narrative Medical decision making narrative: CBC does not show any evidence of left shift , no anemia, normal platelet count and no leukocytosis Electrolytes are all within normal limits with the exception of a random glucose of 318, GFR is 31 with a BUN of 35 and a creatinine of 1.57.... This is an acute on chronic exacerbation since on January 28 the patient had a BUN of 33 creatinine 1.17 and a GFR of 44 Patient's troponin on January 28 was 0.11 January 28 10 in the morning it was 0.96 next troponin at 1357 January 28 was 1.08 and finally today's troponin of 1.25 Beta natruretic peptide 407 Chest x-ray read by radiologist as no significant change mild left base atelectasis otherwise within normal limits. Medical Screen Exam Complete: Yes Emergency Medical Condition: Yes Medical Records Medical records reviewed: Yes I reviewed the patient's medical records. Lab Data Lab results reviewed: Yes I reviewed the patient's lab results. Result diagrams: 01/31/18 02:30 01/31/18 02:30 Lab Results 01/31/18 01/31/18 01/31/18 Range/Units 02:30 02:30 02:30 WBC 11.4 H (4.0-11.0) th/mm3 RBC 4.14 (4.00-5.30) mil/mm3 Hgb 12.1 (11.6-15.3) gm/dL Hct 35.8 (35.0-46.0) % MCV 86.5 (80.0-100.0) fL MCH 29.3 (27.0-34.0) pg MCHC 33.8 (32.0-36.0) % RDW 15.7 (11.6-17.2) % Plt Count 192 (150-450) th/mm3 MPV 10.6 (7.0-11.0) fL Prelim Diff (Auto) Slide review pending Neut % (Auto) 74.2 H (16.0-70.0) % Lymph % (Auto) 12.9 (9.0-44.0) % Barnes % (Auto) 9.4 H (0.0-8.0) % Eos % (Auto) 2.5 (0.0-4.0) % Baso % (Auto) 1.0 (0.0-2.0) % Neut # (Auto) 8.4 H (1.8-7.7) th/mm3 Lymph # (Auto) 1.5 (1.0-4.8) th/mm3 Barnes # (Auto) 1.1 H (0.0-0.9) th/mm3 Eos # (Auto) 0.3 (0.0-0.4) th/mm3 Baso # (Auto) 0.1 (0.0-0.2) th/mm3 Differential Comment . Sodium 141 (136-145) meq/L Potassium 3.9 (3.5-5.1) meq/L Chloride 104 (98-107) meq/L Carbon Dioxide 23.4 (21.0-32.0) meq/L Anion Gap 14 (5-15) meq/L BUN 35 H (7-18) mg/dL Creatinine 1.57 H (0.50-1.00) mg/dL Estimated GFR 31 L (>89) mL/min Random Glucose 318 H (74-106) mg/dL Calcium 8.3 L (8.5-10.1) mg/dL Total Bilirubin 0.3 (0.2-1.0) mg/dL AST 41 H (15-37) U/L ALT 26 (10-53) U/L Alkaline Phosphatase 82 (45-117) U/L Total Creatine Kinase 242 H (26-192) U/L Troponin I 1.25 H* D (0.02-0.05) ng/mL B-Natriuretic Peptide 407 H (0-100) pg/mL Total Protein 7.1 (6.4-8.2) g/dL Albumin 3.4 (3.4-5.0) g/dL Imaging Data Attestation: I personally reviewed and interpreted this imaging study as follows : Radiologist's impression: Chest X-Ray 01/31/18 02:15 CONCLUSION: No significant change mild left base atelectasis. Otherwise within normal limits. ECG Data EKG Prior to Arrival: No Attestation: I personally reviewed and interpreted this ECG as follows: Prior ECG tracings: not available for review Interpretation: Borderline sinus tachycardia with frequent PVCs. No major evidence of any acute ST elevation [place] pattern. Discharge Plan Discharge Disposition Patient Disposition: 30 Still Patient Discharge Condition Condition: Fair Discharge Details Diagnosis: Non-ST elevated myocardial infarction (non-STEMI) Physicians Team ED Provider: Philip Montalvo Primary Care Provider: Pavithra Carbone Rxs /Orders / Referrals /Forms Prescriptions: No Action atorvastatin 40 mg Tablet 40 mg PO HS Qty: 30 RF: 0 clopidogrel [Plavix] 75 mg Tablet 75 mg PO DAILY Qty: 30 RF: 0 aspirin 81 mg Tablet,Delayed Release (Dr/Ec) 81 mg PO DAILY Qty: 30 RF: 0 metoprolol succinate 25 mg Tablet Extended Release 24 Hr 25 mg PO DAILY Qty: 30 RF: 0 Discharge Instructions Patient Printed Instructions: Chest Pain (ED) Discharge Interventions Interventions: Vital Signs Last Done: 01/31/18 02:11 Status ED Status: With Doctor
[2018-01-31 03:11] LABS: Baso # (Auto) 0.1 th/mm3 (0.0-0.2); Eos # (Auto) 0.3 th/mm3 (0.0-0.4); Eos % (Auto) 2.5 % (0.0-4.0); Hematocrit 35.8 % (35.0-46.0); Hemoglobin 12.1 gm/dL (11.6-15.3); Lymph # (Auto) 1.5 th/mm3 (1.0-4.8); Lymph % (Auto) 12.9 % (9.0-44.0); Mean Corpuscular HGB Conc 33.8 % (32.0-36.0); Mean Corpuscular Hemoglobin 29.3 pg (27.0-34.0); Mean Corpuscular Volume 86.5 fL (80.0-100.0); Mean Platelet Volume 10.6 fL (7.0-11.0); Mono # (Auto) 1.1 th/mm3 (0.0-0.9); Mono % (Auto) 9.4 % (0.0-8.0); Neut # (Auto) 8.4 th/mm3 (1.8-7.7); Neut % (Auto) 74.2 % (16.0-70.0); Platelet Count 192 th/mm3 (150-450); Red Blood Count 4.14 mil/mm3 (4.00-5.30); Red Cell Distribution Width 15.7 % (11.6-17.2); White Blood Count 11.4 th/mm3 (4.0-11.0)
--- NOTE | 2018-01-31 03:12 | XR ---
EXAM DATE: 01/31/2018 3:06 AM EDT AGE/SEX: 87 years / Female INDICATIONS: Shortness of breath CLINICAL DATA: This is the patient's initial encounter. Patient reports that signs and symptoms have been present for 1 day and indicates a pain score of Nonresponsive. MEDICAL/SURGICAL HISTORY: . Hypertension. Diabetes mellitus type II. Carcinoma, rectal. Avles ry artery stent. COMPARISON: [facility] [place], CHEST 1V SINGLE AP, 01/28/2018. . FINDINGS: Mild left base atelectasis again noted and not significantly changed. No definite pneumonic infiltrat e seen. No pleural effusion or pneumothorax. Heart size stable, within normal limits. CONCLUSION: No significant change mild left base atelectasis. Otherwise within normal limits. Electronically signed by: Mitchell Pierre MD 01/31/2018 3:11 AM EDT
[2018-01-31 03:13] LABS: Alanine Aminotransferase 26 U/L (10-53)
[2018-01-31 03:19] LABS: Albumin 3.4 g/dL (3.4-5.0); Alkaline Phosphatase 82 U/L (45-117); Anion Gap 14 meq/L (5-15); Aspartate Aminotransferase 41 U/L (15-37); Blood Urea Nitrogen 35 mg/dL (7-18); Calcium 8.3 mg/dL (8.5-10.1); Carbon Dioxide 23.4 meq/L (21.0-32.0); Chloride 104 meq/L (98-107); Creatine Kinase 242 U/L (26-192); Glomerular Filtration Rate 31 mL/min (>89); Glucose,Random 318 mg/dL (74-106); Potassium 3.9 meq/L (3.5-5.1); Sodium 141 meq/L (136-145); Total Protein 7.1 g/dL (6.4-8.2)
[2018-01-31 03:22] LABS: Troponin I 1.25 ng/mL (0.02-0.05)
[2018-01-31 03:38] LABS: CKMB Percent 1.9 % (0.0-4.0); Creatine Kinase MB 4.7 ng/mL (0.5-3.6)
[2018-01-31] MEDS ORDERED: Heparin 10,000 UNITS/10 ML Vial (for IV use) IV.PUSH STA (03:50)
[2018-01-31] MEDS ORDERED: Bisacodyl 10 MG Supp RECTAL PRN (03:53)
[2018-01-31 04:25] LABS: Platelet Estimate Normal (Normal); RBC Morphology Normal (Normal)
[2018-01-31 04:40] LABS: Activated Partial Thrombo Time 21.3 sec (24.3-30.1); Prothrombin Time 10.5 sec (9.8-11.6)
[2018-01-31] MEDS: Heparin Drip 25,000 UNIT/250 ML BAG IV.CONT PRN (04:47)
[2018-01-31] MEDS ORDERED: Dextrose 50% in Water 50 ML Vial IV.PUSH PRN (05:32)
[2018-01-31] MEDS ORDERED: Sodium Chloride 0.9% 2 ML Flush PRN IV.FLUSH (05:37)
--- NOTE | 2018-01-31 06:15 | P.HPIM ---
History of Present Illness Primary Care Physician: Pavithra Crabone MD History of Present Illness: 79-year-old female with a history of diabetes, anxiety, depression, history of rectal cancer in remission, CAD status post PCI, recent admission on 01/28 for non-ST elevation [place] discharged on 01/29.. Presents with acute onset of dull pressure-like nonradiating chest pain resolved with aspirin and sublingual nitroglycerin. She is currently chest pain-free. She has small cuts on both first toes, as well as abrasion on right elbow, however is unsure how she got these. She continues to report the chest pain is resolved. Patient says she does not believe she was given any additional medications upon discharge from the hospital most recently Inpatient Certification: I certify that the inpatient services were ordered in accordance with Medicare regulations governing the order. This includes certification that hospital inpatient services are reasonable and necessary and in the case of services not specified as inpatient-only under 42 CFR 419.22(n), that they are appropriately provided as inpatient services in accordance to with the 2-midnight benchmark under 43 CFR 412.3(e) Estimated Total Length of Stay (Days): 3 Plans for Post Hospital Care: Home Review of Systems All other systems reviewed negative except as stated in HPI PMFSH - History History Provided By: Patient - Medical History Medical History: Medical History (Last Reviewed 01/31/18 @ 06:02 by Parmjit Rivers MD) Chest pain Diabetes History of hysterectomy Hyperlipidemia Hypertension Rectal cancer - Surgical History Surgical History: Surgical History (Last Reviewed 01/31/18 @ 06:02 by Parmjit Rivers MD) H/O heart artery stent History of tonsillectomy Hx of appendectomy - Family History Family History: Family History (Last Reviewed 01/31/18 @ 06:02 by Parmjit Rivers MD) Other Family history of hypertension - Social History I have reviewed the patient's Social History: Yes - Tobacco History Second Hand Smoke Exposure: No Smoking Status: Former smoker Tobacco Type: Cigarettes - Alcohol History How Often Do You Have a Drink Containing Alcohol: Monthly or less - Substance Use History Substance History: No History of Abuse - Immunization History Tetanus Immunization: Unsure Medications and Allergies Active Medications: Active Medications Al Hydroxide/Mg Hydroxide (Milk Of Nita Liq) 30 ml PO Q12H PRN PRN Reason: Mild Constipation Aspirin (Ecotrin) 81 mg PO DAILY [facility] Atorvastatin Calcium (Lipitor) 40 mg PO HS [facility] Bisacodyl (Dulcolax Supp) 10 mg RECTAL DAILY PRN PRN Reason: SEVERE CONSITIPATION Clopidogrel Bisulfate (Plavix) 75 mg PO DAILY [facility] Dextrose (D50w Vial) 50 ml IV.PUSH UNSCH PRN PRN Reason: PER HYPOGLYCEMIA PROTOCOL Glucagon (Glucagon Inj) 1 mg OTHER PRN PRN PRN Reason: for Hypoglycemia Protocol Heparin Sodium/Dextrose (Heparin/D5w 25,000 U/250 Ml) 25,000 unit in 250 mls @ 0 mls/hr IV.CONT TITRATE PRN; Protocol PRN Reason: Per Protocol Last Admin: 01/31/18 04:47 Dose: 1,000 units/hr, 10 mls/hr Sodium Chloride (Ns Inj) 1,000 mls @ 60 mls/hr IV.CONT .[id number] [facility] Insulin Aspart (Novolog Insulin Correctional Sugar Inj) 0 unit SQ ACHS TATYANA; Protocol Lactulose (Lactulose Liq) 30 ml PO DAILY PRN PRN Reason: SEVERE CONSITIPATION Metoprolol Succinate (Toprol Xl) 25 mg PO DAILY [facility] Sennosides (Senokot) 17.2 mg PO Q12H PRN PRN Reason: Moderate Constipation Sodium Chloride (Ns Flush) 2 ml IV.FLUSH BID TATYANA Sodium Chloride (Ns Flush) 2 ml IV.FLUSH PRN PRN PRN Reason: FLUSH AFTER USING IV ACCESS Allergies Allergy/AdvReac Type Severity Reaction Status Date / Time penicillin G Allergy Severe UNKNOWN Verified 01/31/18 02:06 Sulfa (Sulfonamide Allergy Severe UNKNOWN Verified 01/31/18 02:06 Antibiotics) Exam Vital signs: Vital Signs 01/31/18 02:11 01/31/18 03:00 01/31/18 03:11 Temperature 98.7 F Pulse Rate 107 H 96 H Respiratory Rate 18 16 Blood Pressure 125/62 117/57 L Pulse Oximetry 94 L 94 L 01/31/18 04:00 Temperature Pulse Rate 96 H Respiratory Rate 16 Blood Pressure 130/60 Pulse Oximetry 94 L Intake & Output 01/30/18 01/30/18 01/31/18 06:59 18:59 06:59 Weight 81.647 kg Narrative: GENERAL: Patient sitting up in bed. Sleeping, wakes up for exam. Appears comfortable. SKIN: Warm and dry. HEAD: Atraumatic. Normocephalic. EYES: Pupils equal and round. No scleral icterus. No injection or drainage. ENT: No nasal bleeding or discharge. Mucous membranes pink and moist. NECK: Trachea midline. No JVD. CARDIOVASCULAR: Regular rate and rhythm. RESPIRATORY: No accessory muscle use. Clear to auscultation. Breath sounds equal bilaterally. GASTROINTESTINAL: Abdomen soft, non-tender, nondistended. Hepatic and splenic margins not palpable. MUSCULOSKELETAL: Extremities without clubbing, cyanosis, or edema. No obvious deformities. Patient with small abrasions on bilateral first toes, superficial abrasions over the right elbow. NEUROLOGICAL: Awake and alert. No obvious cranial nerve deficits. Motor grossly within normal limits. Five out of 5 muscle strength in the arms and legs. Normal speech. PSYCHIATRIC: Appropriate mood and affect; insight and judgment normal. Results - Labs CBC & Chem 7: 01/31/18 02:30 01/31/18 02:30 Labs: Short CBC 01/31/18 Range/Units 02:30 WBC 11.4 H (4.0-11.0) th/mm3 Hgb 12.1 (11.6-15.3) gm/dL Hct 35.8 (35.0-46.0) % Plt Count 192 (150-450) th/mm3 BMP 01/31/18 02:30 Sodium 141 Potassium 3.9 Chloride 104 Carbon Dioxide 23.4 BUN 35 H Creatinine 1.57 H Calcium 8.3 L Cardiac Enzymes 01/31/18 Range/Units 02:30 Total Creatine Kinase 242 H (26-192) U/L CK-MB (CK-2) 4.7 H (0.5-3.6) ng/mL Troponin I 1.25 H* D (0.02-0.05) ng/mL Liver Function 01/31/18 Range/Units 02:30 Total Bilirubin 0.3 (0.2-1.0) mg/dL AST 41 H (15-37) U/L ALT 26 (10-53) U/L Alkaline Phosphatase 82 (45-117) U/L Albumin 3.4 (3.4-5.0) g/dL - Imaging Impressions Chest X-Ray 01/31/18 02:15 CONCLUSION: No significant change mild left base atelectasis. Otherwise within normal limits. Caprini VTE Risk Assessment Caprini VTE Risk Assessment: Moderate/High Risk (score >= 2) Caprini Risk Assessment Model: Point Value = 1 Point Value = 2 Point Value = 3 Point Value = 5 Age 41-60 Minor surgery BMI > 25 kg/m2 Swollen legs Varicose veins or History of unexplained or recurrent spontaneous Oral contraceptives or hormone replacement Sepsis (< 1 month) Serious lung disease, including pneumonia (< 1 month) Abnormal pulmonary function Acute myocardial infarction Congestive heart failure (< 1 month) History of inflammatory bowel disease Medical patient at bed rest Age 61-74 Arthroscopic surgery Major open surgery (> 45 min) Laparoscopic surgery (> 45 min) Malignancy Confined to bed (> 72 hours) Immobilizing plaster cast Central venous access Age >= 75 History of VTE Family history of VTE Factor V Leiden Prothrombin [id number] Lupus anticoagulant Anticardiolipin antibodies Elevated serum homocysteine Heparin-induced thrombocytopenia Other congenital or acquired thrombophilia Stroke (< 1 month) Elective arthroplasty Hip, pelvis, or leg fracture Acute spinal cord injury (< 1 month) Prophylaxis Regimen: Total Risk Factor Score Risk Level Prophylaxis Regimen 0-1 Low Early ambulation 2 Moderate Order ONE of the following: *Sequential Compression Device (SCD) *Heparin 5000 units SQ BID 3-4 Higher Order ONE of the following medications: *Heparin 5000 units SQ TID *Enoxaparin/Lovenox 40 mg SQ daily (WT < 150 kg, CrCl > 30 mL/min) *Enoxaparin/Lovenox 30 mg SQ daily (WT < 150 kg, CrCl > 10-29 mL/min) *Enoxaparin/Lovenox 30 mg SQ BID (WT < 150 kg, CrCl > 30 mL/min) AND/OR *Sequential Compression Device (SCD) 5 or more Highest Order ONE of the following medications: *Heparin 5000 units SQ TID (Preferred with Epidurals) *Enoxaparin/Lovenox 40 mg SQ daily (WT < 150 kg, CrCl > 30 mL/min) *Enoxaparin/Lovenox 30 mg SQ daily (WT < 150 kg, CrCl > 10-29 mL/min) *Enoxaparin/Lovenox 30 mg SQ BID (WT < 150 kg, CrCl > 30 mL/min) AND *Sequential Compression Device (SCD) Assessment and Plan - Plan //Non-ST elevation myocardial infarction Chest pain upon presentation, however improved with nitro. Continue on nitro paste. Pre-and drip ordered in the ER. EKG with no ST elevation. No acute findings on chest x-ray. Continue to trend troponins and EKGs. Continue home medications, beta-julio cesar. Cardiology be consulted. Suspect medication noncompliance. //Chronic kidney disease stage III //Acute kidney injury Creatinine 1.57 from 1.17 on previous admission. BNP in the 400s. Cardiorenal syndrome. Watch fluid status closely. Follow-up labs. //Chronic anxiety. Patient on anxiolytics at home. Await medication reconciliation. //Diabetes mellitus. Hyperglycemia on admission. A1c pending. Insulin sliding scale and diabetic diet //Medication noncompliance. We need to have accurate medication list. Patient does not appear to be on insulin however she says she is, and is on anxiolytic however this is not on her medication list. Discussed Condition With: Patient, nurse, ED physician.
[2018-01-31] MEDS: Insulin NovoLOG Aspart Correctional Sugar Inj SQ SCH ×4 (08:55→21:52)
[2018-01-31] MEDS: Sodium Chloride 0.9% 2 ML Flush BID IV.FLUSH SCH ×2 (10:25→20:36)
[2018-01-31 11:48] LABS: Hematocrit 38.5 % (35.0-46.0); Hemoglobin 12.8 gm/dL (11.6-15.3); Mean Corpuscular HGB Conc 33.2 % (32.0-36.0); Mean Corpuscular Hemoglobin 29.4 pg (27.0-34.0); Mean Corpuscular Volume 88.6 fL (80.0-100.0); Mean Platelet Volume 10.3 fL (7.0-11.0); Platelet Count 157 th/mm3 (150-450); Red Blood Count 4.34 mil/mm3 (4.00-5.30); White Blood Count 9.4 th/mm3 (4.0-11.0)
[2018-01-31] MEDS: Sod Chloride 0.9% Inj 1,000 ML IV.CONT SCH ×2 (13:58→20:36)
[2018-01-31] MEDS: Acetaminophen 500 MG Tablet PO PRN ×2 (14:10→20:37)
--- NOTE | 2018-01-31 14:16 | MB ---
cc: Shahab Johnson MD DATE: 01/31/2018 CARDIOLOGY CONSULTATION REASON FOR CONSULTATION: Evaluation of chest pain and elevated troponin. HISTORY OF PRESENT ILLNESS: Olimpia Arvizu is an 79-year-old woman with known coronary artery disease. She has had stents of her LAD and right coronary artery and this looks like this was about 15 years ago. Her last cardiac catheterization was 02/26/2004. At that time, she had a patent mid LAD stent and a 40% restenosed right coronary artery stent. Not aware of any catheterization procedures since then. She was admitted on 01/28/2018 with a non-STEMI. Troponin was 0.96, it went as high as 1.08. She comes in now with troponins of 1.25 and repeat 1.73. The patient went home yesterday. After she went home, apparently had a very large bowel movement. She cleaned herself up. At some point she came back to the hospital with chest pain. The ER doctor reports that she has had chest pain since 4:00 p.m. When I try to take a history from the patient, she immediately wanders with her answers and I could not really find out exactly when she had chest pain this time. The one thing I could tell is that she is not having chest pain at the time I am seeing her. Her main complaint was of being cold and she is wrapped up in a lot of blankets. She is in the process of being moved upstairs while this is being dictated. The patient has diabetes, she has hyperlipidemia. She has coronary artery disease as described above. PAST MEDICAL HISTORY: Also includes rectal cancer with surgery and radiation therapy; apparently it is in remission. She had a previous hysterectomy. There is a note in her old records of an old pulmonary embolism. ALLERGIES: INCLUDE PENICILLIN AND SULFA. FAMILY HISTORY: Positive for hypertension. SOCIAL HISTORY: She is a previous smoker. She lives alone. She has a son in [place] and a granddaughter in [place]. The granddaughter in [place] as a physical therapist and spouse is a physician, so that is who I spoke to get more history. PHYSICAL EXAMINATION: GENERAL: Elderly white female, curled up in bed. VITAL SIGNS: Charted. HEENT: Unremarkable. NECK: Shows adequate upstrokes. No JVD. CHEST: Mostly clear to auscultation. CARDIOVASCULAR: S1, S2, regular rate and rhythm, 1/6 systolic murmur. ABDOMEN: Soft. EXTREMITIES: Reveal diminished pedal pulses, mildly reduced femoral pulses. DIAGNOSTIC DATA: EKGs: Looking at them from last admission to now look like she is involved into an anteroseptal NH picture. 2. Her troponins have steadily gone up as described before. Peak troponin currently 1.73. BUN and creatinine have risen up to 1.57. 3. She received 70 mL of contrast for chest CTA on 01/28/2018 which was negative for pulmonary embolism. IMPRESSION: Status post myocardial infarction. It looks anteroseptally located from her EKG. She is not having active pain. Her renal insufficiency has gotten worse. I suspect this may be due to the contrast she received from 2 days ago. RECOMMENDATIONS: I am going to consult nephrology for the renal insufficiency and we will hold off on doing a catheterization. Tried to discuss code status with her, but she could not stay on subject and kept changing the subject, so she is currently a FULL CODE. She is going to be very high risk because of being 87 years of age and currently not a good candidate for any type of intervention with the rising creatinine. Further therapy to be determined. MD KING Echeverria/taina , 01:46 PM , 01:55 PM
--- NOTE | 2018-01-31 14:31 | P.PNWCN ---
Wound Care Nurse Consult Description: Consult for Wound Management of Bilateral first toes, right elbow per Dr Rivers Communicated with: RN Patient Recommendation: Multiple scrapes and abrasions on bilateral big toes are dry and not open. Please refer to Skin Care guidelines for abrasions and skin tears. Additional information: Patient seen in E pod for dried blood noted to bilateral big toes that are not open and not draining from what appears to be abrasions. Patient states being too cold to be uncovered. RN states a skin tear to right elbow that was dressed this morning.
--- NOTE | 2018-01-31 17:17 | P.CONNP ---
History of Present Illness Service: Nephrology Reason for Consult: Acute on chronic kidney disease Primary Care Provider: Pavithra Carbone MD History of Present Illness: This is an 87 year old lady admitted between 01/28/18 and 01/29/18, readmitted today. On 01/28/18 she received iodinated contrast for CTA. Patient had NSTEMI, medical management was advised. She has been readmitted with chest pain. Creatinine is higher at 1.57. Troponin is elevated, seen by cardiology. Cardiac catheterization has been deferred due to elevated creatinine and other comorbidities. Patient has history of type 2 diabetes, prior coronary stents. Review of Systems Constitutional: Denies anorexia, Denies weight gain, Denies weight loss Eyes: Denies blind spots, Denies blurry vision Ears, Nose, Mouth, and Throat: Denies bleeding gums Cardiovascular: Reports chest pain, Denies shortness of breath Gastrointestinal: Denies abdominal pain Musculoskeletal: Denies abnormal walking, Denies muscle weakness, Denies neck pain Psychiatric: Denies anxiety PMFSH - History History Provided By: Patient - Medical History Medical History: Medical History (Last Reviewed 01/31/18 @ 06:02 by Parmjit Rivers MD) Chest pain Diabetes History of hysterectomy Hyperlipidemia Hypertension Rectal cancer - Surgical History Surgical History: Surgical History (Last Reviewed 01/31/18 @ 06:02 by Parmjit Rivers MD) H/O heart artery stent History of tonsillectomy Hx of appendectomy - Family History Family History: Family History (Last Reviewed 01/31/18 @ 06:02 by Parmjit Rivers MD) Other Family history of hypertension - Tobacco History Second Hand Smoke Exposure: No Smoking Status: Former smoker Tobacco Type: Cigarettes - Alcohol History How Often Do You Have a Drink Containing Alcohol: Monthly or less - Substance Use History Substance History: No History of Abuse - Immunization History Tetanus Immunization: Unsure Medications and Allergies Active Medications: Active Medications Acetaminophen (Tylenol) 500 mg PO Q4H PRN PRN Reason: FEVER > 100.4 F Last Admin: 01/31/18 14:10 Dose: 500 mg Al Hydroxide/Mg Hydroxide (Milk Of Magnesia Liq) 30 ml PO Q12H PRN PRN Reason: Mild Constipation Aspirin (Ecotrin) 81 mg PO DAILY [facility] Last Admin: 01/31/18 08:53 Dose: 81 mg Atorvastatin Calcium (Lipitor) 40 mg PO HS [facility] Bisacodyl (Dulcolax Supp) 10 mg RECTAL DAILY PRN PRN Reason: SEVERE CONSITIPATION Clopidogrel Bisulfate (Plavix) 75 mg PO DAILY [facility] Last Admin: 01/31/18 08:53 Dose: 75 mg Dextrose (D50w Vial) 50 ml IV.PUSH UNSCH PRN PRN Reason: PER HYPOGLYCEMIA PROTOCOL Glucagon (Glucagon Inj) 1 mg OTHER PRN PRN PRN Reason: for Hypoglycemia Protocol Heparin Sodium/Dextrose (Heparin/D5w 25,000 U/250 Ml) 25,000 unit in 250 mls @ 0 mls/hr IV.CONT TITRATE PRN; Protocol PRN Reason: Per Protocol Last Admin: 01/31/18 04:47 Dose: 1,000 units/hr, 10 mls/hr Sodium Chloride (Ns Inj) 1,000 mls @ 60 mls/hr IV.CONT .[id number] [facility] Last Admin: 01/31/18 13:58 Dose: Not Given Insulin Aspart (Novolog Insulin Correctional Sugar Inj) 0 unit SQ ACHS [facility]; Protocol Last Admin: 01/31/18 16:58 Dose: 1 unit Lactulose (Lactulose Liq) 30 ml PO DAILY PRN PRN Reason: SEVERE CONSITIPATION Metoprolol Succinate (Toprol Xl) 25 mg PO DAILY [facility] Last Admin: 01/31/18 08:53 Dose: 25 mg Nitroglycerin (Nitro-Bid 2% Oint) 0.5 inch TOPICAL Q6HR [facility] Last Admin: 01/31/18 17:00 Dose: 0.5 inch Sennosides (Senokot) 17.2 mg PO Q12H PRN PRN Reason: Moderate Constipation Sodium Chloride (Ns Flush) 2 ml IV.FLUSH BID [facility] Last Admin: 01/31/18 10:25 Dose: 2 ml Sodium Chloride (Ns Flush) 2 ml IV.FLUSH PRN PRN PRN Reason: FLUSH AFTER USING IV ACCESS Allergies Allergy/AdvReac Type Severity Reaction Status Date / Time penicillin G Allergy Severe UNKNOWN Verified 01/31/18 02:06 Sulfa (Sulfonamide Allergy Severe UNKNOWN Verified 01/31/18 02:06 Antibiotics) Exam Vital signs: Vital Signs 01/31/18 02:11 01/31/18 03:00 01/31/18 03:11 Temperature 98.7 F Pulse Rate 107 H 96 H Respiratory Rate 18 16 Blood Pressure 125/62 117/57 L Pulse Oximetry 94 L 94 L 01/31/18 04:00 01/31/18 05:00 01/31/18 06:00 Temperature Pulse Rate 96 H 88 88 Respiratory Rate 16 16 16 Blood Pressure 130/60 126/60 122/59 L Pulse Oximetry 94 L 95 97 01/31/18 08:00 01/31/18 08:57 01/31/18 10:39 Temperature Pulse Rate 82 Respiratory Rate 20 Blood Pressure 143/66 H Pulse Oximetry 97 97 97 01/31/18 13:01 01/31/18 14:00 01/31/18 15:00 Temperature 101.1 F H Pulse Rate 108 H 110 H Respiratory Rate 20 Blood Pressure 129/63 151/71 H Pulse Oximetry 93 L 01/31/18 15:42 01/31/18 16:00 Temperature 100.9 F H Pulse Rate 114 H 111 H Respiratory Rate 20 Blood Pressure 153/84 H Pulse Oximetry 95 Intake & Output 01/30/18 01/31/18 01/31/18 18:59 06:59 18:59 Intake Total 480 / 480 Output Total 200 / 200 Balance 280 / 280 Weight 81.647 kg Intake: Oral 480 / 480 Output: Urine 200 / 200 - Constitutional no acute distress - Routine HEENT Exam Head: Present: normocephalic, atraumatic Eye: Present: EOMI, PERRL ENT: Present: mucous membranes moist - Routine Neck Exam Present: supple, full ROM. Absent: lymphadenopathy, thyromegaly - Routine Respiratory Exam Present: rales. Absent: accessory muscle use - Routine Cardiovascular Exam Present: RRR, S1, S2 - Routine Abdominal Exam Present: soft, normoactive bowel sounds - Routine Skin Exam Present: intact - Routine Neurological Exam Present: alert, oriented X3 Results - Lab Results 01/31/18 11:01 01/31/18 02:30 Most recent lab results Calcium 8.3 mg/dL (8.5-10.1) L 01/31/18 02:30 Assessment and Plan - Assessment (1) Acute kidney injury Code(s): N17.9 - Acute kidney failure, unspecified Status: Acute Plan: Patient may have suffered LOLIS due to iodinated contrast received on 01/28/18. In addition, there could be a component of renal hypoperfusion due to NSTEMI. Continue conservative management. Agree with Dr. Johnson about deferring cardiac catheterization unless it is emergently needed. Avoid nephrotoxic agents. Monitor urine output and renal function. Risk for LOLIS is about 26% with current GFR of 31. (2) Type 2 diabetes mellitus Code(s): E11.9 - Type 2 diabetes mellitus without complications Status: Acute Plan: insulin coverage to maintain blood glucose between 140 and 180. (3) Non-ST elevated myocardial infarction (non-STEMI) Code(s): I21.4 - Non-ST elevation (NSTEMI) myocardial infarction Status: Acute - Plan Cardiology on the case. - Attending Attestation Thanks for the consult.
--- NOTE | 2018-01-31 17:34 | ECG ---
Date Performed: 01/31/2018 Time Performed: 02:19:16 PTAGE: 87 years EKG: SINUS TACHYCARDIA WITH FREQUENT VENTRICULAR PREMATURE COMPLEXES LEFT ANTERIOR FASCICULAR BL OCK MODERATE VOLTAGE CRITERIA FOR LVH, CONSIDER NORMAL VARIANT POSSIBLE SEPTAL MYOCARDIAL INFARCTION When compared top prvious tracing, sinus rate is faster and Premature ventricular contractions are no w present. ABNORMAL ECG PREVIOUS TRACING : 01/28/2018 11.40 DOCTOR: Carl Noble Interpretating Date/Time 01/31/2018 17:33:09
--- NOTE | 2018-01-31 17:36 | ECG ---
Date Performed: 01/31/2018 Time Performed: 08:46:51 PTAGE: 87 years EKG: Sinus rhythm WITH FIRST DEGREE AV BLOCK LEFT ANTERIOR FASCICULAR BLOCK SEPTAL MYOCARDIAL INFARCTION When compared to previous tracing, sinus rate is slower, and Premature ventricular contractions have resolved. ABN ORMAL ECG PREVIOUS TRACING : 01/31/2018 02.19 DOCTOR: Carl Noble Interpretating Date/Time 01/31/2018 17:34:40
[2018-01-31 18:30] LABS: Bilirubin,Urine Negative (Negative); Clarity,Urine Clear (Clear); Color,Urine Yellow (Yellw/Straw); Glucose,Urine (UA) Negative (Negative); Leukocyte Esterase,Urine Trace (Negative); Nitrite,Urine Negative (Negative); Specific Gravity,Urine 1.015 (1.002-1.035); Squamous Epithelial Cell,Urine 1 /hpf (0-5)
[2018-01-31] MEDS ORDERED: Heparin 10,000 UNITS/10 ML Vial (for IV use) IV.PUSH PRN (20:28)
[2018-01-31] MEDS: Heparin 10,000 UNITS/10 ML Vial (for IV use) IV.PUSH PRN (20:37)
[2018-02-01] MEDS ORDERED: Morphine Sulfate Inj 2 MG/ML Vial IV.PUSH ONE (00:01)
[2018-02-01 00:03] LABS: Baso # (Auto) 0.1 th/mm3 (0.0-0.2); Baso % (Auto) 0.7 % (0.0-2.0); Eos # (Auto) 0.1 th/mm3 (0.0-0.4); Eos % (Auto) 0.4 % (0.0-4.0); Hematocrit 33.2 % (35.0-46.0); Hemoglobin 10.8 gm/dL (11.6-15.3); Lymph # (Auto) 1.5 th/mm3 (1.0-4.8); Lymph % (Auto) 12.3 % (9.0-44.0); Mean Corpuscular HGB Conc 32.5 % (32.0-36.0); Mean Corpuscular Hemoglobin 28.7 pg (27.0-34.0); Mean Corpuscular Volume 88.2 fL (80.0-100.0); Mean Platelet Volume 10.3 fL (7.0-11.0); Mono # (Auto) 1.1 th/mm3 (0.0-0.9); Mono % (Auto) 9.3 % (0.0-8.0); Neut # (Auto) 9.5 th/mm3 (1.8-7.7); Neut % (Auto) 77.3 % (16.0-70.0); Platelet Count 150 th/mm3 (150-450); Red Blood Count 3.76 mil/mm3 (4.00-5.30); White Blood Count 12.2 th/mm3 (4.0-11.0)
[2018-02-01 00:48] LABS: Albumin 2.7 g/dL (3.4-5.0); Calcium 6.9 mg/dL (8.5-10.1); Carbon Dioxide 23.3 meq/L (21.0-32.0); Potassium 3.1 meq/L (3.5-5.1); Total Protein 6.2 g/dL (6.4-8.2)
[2018-02-01] MEDS: ALPRAZolam 0.5 MG Tablet PO PRN ×2 (01:33→20:31)
[2018-02-01 02:03] LABS: Troponin I 5.27 ng/mL (0.02-0.05)
[2018-02-01] MEDS: Acetaminophen 500 MG Tablet PO PRN ×3 (02:09→18:45)
[2018-02-01] MEDS ORDERED: Calcium Gluconate Inj 1 GM in Dextrose 5% in Water Inj 100 ML IV.SIG ONE ×2 (02:30)
[2018-02-01] MEDS ORDERED: Vancomycin Inj 1 GM/200 ML PIGGYBACK IV.SIG ONE (02:38)
[2018-02-01] MEDS ORDERED: Morphine Inj 4 MG/ML Vial IV.PUSH PRN (02:39)
[2018-02-01] MEDS ORDERED: Nitroglycerin Drip Premix 50 MG/250 ML BOTTLE IV.CONT PRN (02:56)
[2018-02-01] MEDS ORDERED: Vancomycin Inj 1,000 MG in Sodium Chlor 0.9% Inj 250 ML IV.SIG ONE (03:00)
[2018-02-01] MEDS: Potassium Chlor 20 mEq Premix 20 MEQ/100 ML PIGGYBACK IV.SIG SCH ×2 (03:17→05:43)
[2018-02-01] MEDS: Heparin Drip 25,000 UNIT/250 ML BAG IV.CONT PRN (03:36)
[2018-02-01 03:52] LABS: Creatine Kinase MB 19.5 ng/mL (0.5-3.6)
[2018-02-01 03:59] LABS: CKMB Percent 7.4 % (0.0-4.0)
[2018-02-01 06:49] LABS: Baso # (Auto) 0.1 th/mm3 (0.0-0.2); Baso % (Auto) 0.3 % (0.0-2.0); Eos % (Auto) 0.1 % (0.0-4.0); Hematocrit 34.5 % (35.0-46.0); Hemoglobin 11.1 gm/dL (11.6-15.3); Lymph # (Auto) 1.2 th/mm3 (1.0-4.8); Lymph % (Auto) 7.4 % (9.0-44.0); Mean Corpuscular HGB Conc 32.3 % (32.0-36.0); Mean Corpuscular Hemoglobin 28.8 pg (27.0-34.0); Mean Corpuscular Volume 89.1 fL (80.0-100.0); Mono # (Auto) 1.6 th/mm3 (0.0-0.9); Mono % (Auto) 9.7 % (0.0-8.0); Neut # (Auto) 13.3 th/mm3 (1.8-7.7); Neut % (Auto) 82.5 % (16.0-70.0); Platelet Count 167 th/mm3 (150-450); Red Blood Count 3.87 mil/mm3 (4.00-5.30); Red Cell Distribution Width 16.1 % (11.6-17.2); White Blood Count 16.1 th/mm3 (4.0-11.0)
[2018-02-01 07:25] LABS: Alanine Aminotransferase 26 U/L (10-53); Albumin 2.9 g/dL (3.4-5.0); Alkaline Phosphatase 79 U/L (45-117); Anion Gap 10 meq/L (5-15); Aspartate Aminotransferase 64 U/L (15-37); Blood Urea Nitrogen 25 mg/dL (7-18); Calcium 8.4 mg/dL (8.5-10.1); Chloride 104 meq/L (98-107); Glomerular Filtration Rate 42 mL/min (>89); Glucose,Random 265 mg/dL (74-106); Potassium 4.2 meq/L (3.5-5.1); Sodium 138 meq/L (136-145); Total Protein 6.7 g/dL (6.4-8.2)
--- NOTE | 2018-02-01 07:44 | P.PNCA ---
Subjective Interval history: Patient has been having chest pain most of the night. Medications and Allergies Active Medications: Active Medications Acetaminophen (Tylenol) 500 mg PO Q4H PRN PRN Reason: FEVER > 100.4 F Last Admin: 02/01/18 02:09 Dose: 500 mg Al Hydroxide/Mg Hydroxide (Milk Of Magnpiper Liq) 30 ml PO Q12H PRN PRN Reason: Mild Constipation Alprazolam (Xanax) 0.5 mg PO Q8H PRN PRN Reason: ANXIETY Last Admin: 02/01/18 01:33 Dose: 0.5 mg Aspirin (Ecotrin) 81 mg PO DAILY [facility] Last Admin: 01/31/18 08:53 Dose: 81 mg Atorvastatin Calcium (Lipitor) 40 mg PO HS [facility] Last Admin: 01/31/18 20:36 Dose: 40 mg Bisacodyl (Dulcolax Supp) 10 mg RECTAL DAILY PRN PRN Reason: SEVERE CONSITIPATION Clopidogrel Bisulfate (Plavix) 75 mg PO DAILY [facility] Last Admin: 01/31/18 08:53 Dose: 75 mg Dextrose (D50w Vial) 50 ml IV.PUSH UNSCH PRN PRN Reason: PER HYPOGLYCEMIA PROTOCOL Glucagon (Glucagon Inj) 1 mg OTHER PRN PRN PRN Reason: for Hypoglycemia Protocol Heparin Sodium (Porcine) (Heparin Inj) 5,000 units IV.PUSH UNSCH PRN PRN Reason: aPTT < 25 Heparin Sodium (Porcine) (Heparin Inj) 2,500 units IV.PUSH UNSCH PRN PRN Reason: aPTT 25-39 Last Admin: 01/31/18 20:37 Dose: 2,500 units Heparin Sodium/Dextrose (Heparin/D5w 25,000 U/250 Ml) 25,000 unit in 250 mls @ 0 mls/hr IV.CONT TITRATE PRN; Protocol PRN Reason: Per Protocol Last Admin: 02/01/18 03:36 Dose: 900 units/hr, 9 mls/hr Sodium Chloride (Ns Inj) 1,000 mls @ 60 mls/hr IV.CONT .[id number] [facility] Last Admin: 01/31/18 20:36 Dose: 60 mls/hr Nitroglycerin/Dextrose (Nitroglycerin Drip Premix) 50 mg in 250 mls @ 1.5 mls/ hr IV.CONT TITRATE PRN; Protocol PRN Reason: Per Protocol Last Titration: 11/02/18 05:32 Dose: 30 mcg/min, 9 mls/hr Insulin Aspart (Novolog Insulin Correctional Sugar Inj) 0 unit SQ ACHS [facility]; Protocol Last Admin: 01/31/18 21:52 Dose: 1 unit Lactulose (Lactulose Liq) 30 ml PO DAILY PRN PRN Reason: SEVERE CONSITIPATION Metoprolol Tartrate (Lopressor) 25 mg PO TID [facility] Morphine Sulfate (Morphine Inj) 2 mg IV.PUSH Q20M PRN PRN Reason: PAIN 1-10 Last Admin: 02/01/18 02:53 Dose: 2 mg Nitroglycerin (Nitro-Bid 2% Oint) 0.5 inch TOPICAL Q6HR [facility] Last Admin: 02/01/18 05:43 Dose: 0.5 inch Sennosides (Senokot) 17.2 mg PO Q12H PRN PRN Reason: Moderate Constipation Sodium Chloride (Ns Flush) 2 ml IV.FLUSH BID [facility] Last Admin: 01/31/18 20:36 Dose: Not Given Sodium Chloride (Ns Flush) 2 ml IV.FLUSH PRN PRN PRN Reason: FLUSH AFTER USING IV ACCESS Tramadol HCl (Ultram) 50 mg PO Q6H PRN PRN Reason: Pain 1-10 Allergies Allergy/AdvReac Type Severity Reaction Status Date / Time penicillin G Allergy Severe UNKNOWN Verified 01/31/18 02:06 Sulfa (Sulfonamide Allergy Severe UNKNOWN Verified 01/31/18 02:06 Antibiotics) Home Medications Medication Instructions Recorded Confirmed Type alprazolam 0.5 mg PO Q8HR PRN 01/31/18 01/31/18 History tramadol 50 mg PO Q6H PRN 01/31/18 01/31/18 History Physical Exam Vital signs: Vital Signs 01/31/18 08:00 01/31/18 08:57 01/31/18 10:39 Temperature Pulse Rate 82 Respiratory Rate 20 Blood Pressure 143/66 H Pulse Oximetry 97 97 97 01/31/18 13:01 01/31/18 14:00 01/31/18 15:00 Temperature 101.1 F H Pulse Rate 108 H 110 H Respiratory Rate 20 Blood Pressure 129/63 151/71 H Pulse Oximetry 93 L 01/31/18 15:42 01/31/18 16:00 01/31/18 17:00 Temperature 100.9 F H Pulse Rate 114 H 111 H 115 H Respiratory Rate 20 Blood Pressure 153/84 H Pulse Oximetry 95 01/31/18 18:00 01/31/18 19:00 01/31/18 20:00 Temperature 101.9 F H Pulse Rate 101 H 101 H 108 H Respiratory Rate 18 Blood Pressure 118/64 Pulse Oximetry 96 01/31/18 21:00 01/31/18 22:00 01/31/18 23:00 Temperature Pulse Rate 105 H 106 H 104 H Respiratory Rate Blood Pressure Pulse Oximetry 01/31/18 23:03 02/01/18 00:00 02/01/18 00:33 Temperature 99.1 F Pulse Rate 106 H Respiratory Rate 18 18 16 Blood Pressure 143/76 H Pulse Oximetry 02/01/18 01:00 02/01/18 02:00 02/01/18 02:10 Temperature 102.0 F H Pulse Rate 110 H 108 H 117 H Respiratory Rate Blood Pressure Pulse Oximetry 02/01/18 02:40 02/01/18 02:55 02/01/18 03:00 Temperature Pulse Rate 120 H Respiratory Rate 18 18 Blood Pressure Pulse Oximetry 02/01/18 04:00 02/01/18 05:00 02/01/18 06:00 Temperature 100.7 F H Pulse Rate 108 H 105 H 102 H Respiratory Rate 18 Blood Pressure 107/62 Pulse Oximetry 93 L Intake & Output 01/31/18 02/01/18 02/01/18 18:59 06:59 18:59 Intake Total 480 / 480 1430 / 1430 Output Total 200 / 200 200 / 200 Balance 280 / 280 1230 / 1230 Weight 81.5 kg Intake: IV 710 / 710 Heparin/D5W 25,000 U/250 mL 25, 250 / 250 000 unit In 250 ml @ Per Protocol IV.CONT TITRATE PRN Rx #:[id number] Calcium Gluconate Inj 1 GM In 110 / 110 D5W Inj 100 ML @ 110 mls/hr IV. SIG ONCE ONE Rx#:[id number] KCl 20 mEq Premix Inj 20 meq In 100 / 100 100 ml @ 50 mls/hr IV.SIG Q2H [facility] Rx#:[id number] Vancomycin Inj 1,000 MG In NS 250 / 250 Inj 250 ML @ 250 mls/hr IV.SIG ONCE ONE Rx#:[id number] Oral 480 / 480 720 / 720 Output: Urine 200 / 200 200 / 200 Other: # Incontinent Voids 1 Date of Last Bowel Movement 01/31/18 Narrative: Last night has clinically deteriorated - ongoing pain Temperature up to 102 degrees - we don't have a source EKG with ASMI - injury pattern Patient is confused - cannot get consent for a cath Noel Tilley not answering her phone (she has power of cork cutter) I have twice spoken to her about code status/ option of comfort measures. Yesterday she communicated she did not want a cath. Awake Chest mostly clear CV [id number] RRR, ? 04/07 HOOD abd soft no edema Results 02/01/18 04:47 02/01/18 04:47 Cardiac Enzymes 01/31/18 01/31/18 01/31/18 Range/Units 02:30 02:30 09:10 AST 41 H (15-37) U/L CK-MB (CK-2) 4.7 H (0.5-3.6) ng/mL Troponin I 1.25 H* D 1.73 H* D (0.02-0.05) ng/mL B-Natriuretic Peptide 407 H (0-100) pg/mL 01/31/18 01/31/18 01/31/18 Range/Units 14:15 23:56 23:56 AST 58 H (15-37) U/L CK-MB (CK-2) 19.5 H (0.5-3.6) ng/mL Troponin I 1.40 H* D 5.27 H* D (0.02-0.05) ng/mL B-Natriuretic Peptide (0-100) pg/mL 02/01/18 Range/Units 04:47 AST 64 H (15-37) U/L CK-MB (CK-2) (0.5-3.6) ng/mL Troponin I (0.02-0.05) ng/mL B-Natriuretic Peptide (0-100) pg/mL Coagulation 01/31/18 01/31/18 01/31/18 Range/Units 02:30 04:00 11:01 PT 10.5 (9.8-11.6) sec APTT 21.3 L 37.6 H D (24.3-30.1) sec B-Natriuretic Peptide 407 H (0-100) pg/mL 01/31/18 01/31/18 02/01/18 Range/Units 16:10 21:43 04:47 PT (9.8-11.6) sec APTT 33.2 H 80.2 H D 41.7 H D (24.3-30.1) sec B-Natriuretic Peptide (0-100) pg/mL CBC 01/31/18 01/31/18 01/31/18 Range/Units 02:30 11:01 23:56 WBC 11.4 H 9.4 12.2 H (4.0-11.0) th/mm3 RBC 4.14 4.34 3.76 L (4.00-5.30) mil/mm3 Hgb 12.1 12.8 10.8 L D (11.6-15.3) gm/dL Hct 35.8 38.5 33.2 L (35.0-46.0) % Plt Count 192 157 150 (150-450) th/mm3 Neut # (Auto) 8.4 H 9.5 H (1.8-7.7) th/mm3 Lymph # (Auto) 1.5 1.5 (1.0-4.8) th/mm3 [place] # (Auto) 1.1 H 1.1 H (0.0-0.9) th/mm3 Eos # (Auto) 0.3 0.1 (0.0-0.4) th/mm3 Baso # (Auto) 0.1 0.1 (0.0-0.2) th/mm3 02/01/18 Range/Units 04:47 WBC 16.1 H (4.0-11.0) th/mm3 RBC 3.87 L (4.00-5.30) mil/mm3 Hgb 11.1 L (11.6-15.3) gm/dL Hct 34.5 L (35.0-46.0) % Plt Count 167 (150-450) th/mm3 Neut # (Auto) 13.3 H (1.8-7.7) th/mm3 Lymph # (Auto) 1.2 (1.0-4.8) th/mm3 [place] # (Auto) 1.6 H (0.0-0.9) th/mm3 Eos # (Auto) 0.0 (0.0-0.4) th/mm3 Baso # (Auto) 0.1 (0.0-0.2) th/mm3 Comprehensive Metabolic Panel 01/31/18 01/31/18 02/01/18 Range/Units 02:30 23:56 04:47 Sodium 141 140 138 (136-145) meq/L Potassium 3.9 3.1 L D 4.2 D (3.5-5.1) meq/L Chloride 104 106 104 (98-107) meq/L Carbon Dioxide 23.4 23.3 24.0 (21.0-32.0) meq/L BUN 35 H 23 H 25 H (7-18) mg/dL Creatinine 1.57 H 1.06 H 1.20 H (0.50-1.00) mg/dL Calcium 8.3 L 6.9 L* D 8.4 L D (8.5-10.1) mg/dL AST 41 H 58 H 64 H (15-37) U/L ALT 26 27 26 (10-53) U/L Alkaline Phosphatase 82 69 79 (45-117) U/L Total Protein 7.1 6.2 L D 6.7 (6.4-8.2) g/dL Albumin 3.4 2.7 L D 2.9 L (3.4-5.0) g/dL Intake and Output 01/31/18 02/01/18 02/01/18 22:59 06:59 14:59 Intake Total 480 / 480 1430 / 1430 Output Total 200 / 200 200 / 200 Balance 280 / 280 1230 / 1230 Intake: IV 710 / 710 Heparin/D5W 25,000 U/250 mL 25, 250 / 250 000 unit In 250 ml @ Per Protocol IV.CONT TITRATE PRN Rx #:[id number] Calcium Gluconate Inj 1 GM In 110 / 110 D5W Inj 100 ML @ 110 mls/hr IV. SIG ONCE ONE Rx#:[id number] KCl 20 mEq Premix Inj 20 meq In 100 / 100 100 ml @ 50 mls/hr IV.SIG Q2H [facility] Rx#:[id number] Vancomycin Inj 1,000 MG In NS 250 / 250 Inj 250 ML @ 250 mls/hr IV.SIG ONCE ONE Rx#:[id number] Oral 480 / 480 720 / 720 Output: Urine 200 / 200 200 / 200 Other: # Incontinent Voids 1 Date of Last Bowel Movement 01/31/18 01/31/18 Weight 81.5 kg - Imaging and Cardiology Imaging: Impressions Chest X-Ray 01/31/18 02:15 CONCLUSION: No significant change mild left base atelectasis. Otherwise within normal limits. Assessment and Plan - Assessment (1) Frail elderly Code(s): R54 - Age-related physical debility Status: Acute Plan: Still full code which does not appear realistic cosidering age/ prognosis (2) Acute myocardial infarction Code(s): I21.9 - Acute myocardial infarction, unspecified Status: Acute Plan: Looks like anterior STEMI that is "simmering" - her ischemia is ongoing and probably ongoing since 01/28 (3) Febrile illness Code(s): R50.9 - Fever, unspecified Status: Acute Plan: source not found yet. SD's frequenyly cause low grade fever but not this high (4) Acute kidney injury Code(s): N17.9 - Acute kidney failure, unspecified Status: Acute Plan: improved - Plan Very difficult management decision - see discussion above. I do not have consent at this point to do anything but medical management. At her age and frailty, PCI would be high risk/ "heroic". Unable to reach POA. Consider palliative care consult.
[2018-02-01] MEDS: Insulin NovoLOG Aspart Correctional Sugar Inj SQ SCH ×5 (09:06→20:42)
[2018-02-01] MEDS: Metoprolol Tartrate 25 MG Tablet PO SCH ×3 (09:07→18:28)
[2018-02-01] MEDS: Sodium Chloride 0.9% 2 ML Flush BID IV.FLUSH SCH ×2 (09:07→20:31)
--- NOTE | 2018-02-01 12:20 | P.PNNP ---
Subjective Interval history: Patient was in bed, resting, no apparent distress. Patient denied chest pain and SOB. Patient was very confused. Patient's renal function has slightly declined, eGFR is 42 and Creatinine is 1.20. Per the RN, cardiac catheterization is being deferred unless it is emergently needed. The granddaughter is the power of criminal defense attorney so they are trying to speak with her about the possibility of palliative care. <Jesse Avila - Last Filed: 02/01/18 12:32> Physical Exam Vital signs: Vital Signs 01/31/18 13:01 01/31/18 14:00 01/31/18 15:00 Temperature 101.1 F H Pulse Rate 108 H 110 H Respiratory Rate 20 Blood Pressure 129/63 151/71 H Pulse Oximetry 93 L 01/31/18 15:42 01/31/18 16:00 01/31/18 17:00 Temperature 100.9 F H Pulse Rate 114 H 111 H 115 H Respiratory Rate 20 Blood Pressure 153/84 H Pulse Oximetry 95 01/31/18 18:00 01/31/18 19:00 01/31/18 20:00 Temperature 101.9 F H Pulse Rate 101 H 101 H 108 H Respiratory Rate 18 Blood Pressure 118/64 Pulse Oximetry 96 01/31/18 21:00 01/31/18 22:00 01/31/18 23:00 Temperature Pulse Rate 105 H 106 H 104 H Respiratory Rate Blood Pressure Pulse Oximetry 01/31/18 23:03 02/01/18 00:00 02/01/18 00:33 Temperature 99.1 F Pulse Rate 106 H Respiratory Rate 18 18 16 Blood Pressure 143/76 H Pulse Oximetry 02/01/18 01:00 02/01/18 02:00 02/01/18 02:10 Temperature 102.0 F H Pulse Rate 110 H 108 H 117 H Respiratory Rate Blood Pressure Pulse Oximetry 02/01/18 02:40 02/01/18 02:55 02/01/18 03:00 Temperature Pulse Rate 120 H Respiratory Rate 18 18 Blood Pressure Pulse Oximetry 02/01/18 04:00 02/01/18 05:00 02/01/18 06:00 Temperature 100.7 F H Pulse Rate 108 H 105 H 102 H Respiratory Rate 18 Blood Pressure 107/62 Pulse Oximetry 93 L 02/01/18 07:39 02/01/18 08:49 02/01/18 09:01 Temperature 100.6 F H Pulse Rate 109 H Respiratory Rate 19 Blood Pressure 101/52 L Pulse Oximetry 94 L 94 L 95 02/01/18 11:32 Temperature 99.8 F H Pulse Rate 83 Respiratory Rate 18 Blood Pressure 92/52 L Pulse Oximetry 92 L Intake & Output 01/31/18 02/01/18 02/01/18 18:59 06:59 18:59 Intake Total 480 / 480 1430 / 1430 Output Total 200 / 200 200 / 200 Balance 280 / 280 1230 / 1230 Weight 81.5 kg Intake: IV 710 / 710 Heparin/D5W 25,000 U/250 mL 25, 250 / 250 000 unit In 250 ml @ Per Protocol IV.CONT TITRATE PRN Rx #:[id number] Calcium Gluconate Inj 1 GM In 110 / 110 D5W Inj 100 ML @ 110 mls/hr IV. SIG ONCE ONE Rx#:[id number] KCl 20 mEq Premix Inj 20 meq In 100 / 100 100 ml @ 50 mls/hr IV.SIG Q2H [place] Rx#:[id number] Vancomycin Inj 1,000 MG In NS 250 / 250 Inj 250 ML @ 250 mls/hr IV.SIG ONCE ONE Rx#:[id number] Oral 480 / 480 720 / 720 Output: Urine 200 / 200 200 / 200 Other: # Incontinent Voids 1 Date of Last Bowel Movement 01/31/18 - Constitutional no acute distress - Routine HEENT Exam Head: Present: normocephalic Eye: Present: EOMI, PERRL ENT: Present: mucous membranes moist - Routine Neck Exam Present: supple - Routine Respiratory Exam Present: rales. Absent: accessory muscle use Comments: Patient on 2L nasal cannula - Routine Cardiovascular Exam Present: RRR, S1, S2 - Routine Abdominal Exam Present: soft, normoactive bowel sounds - Routine Extremities Exam Present: normal capillary refill. Absent: cyanosis, extremity cold to touch - Routine Neurological Exam Present: alert Patient was alert but confused, AAOx2. - Detailed Neurological Exam: Coma Scale Verbal Response: Confused <Jesse Avila - Last Filed: 02/01/18 12:32> Vital signs: Vital Signs 01/31/18 18:00 01/31/18 19:00 01/31/18 20:00 Temperature 101.9 F H Pulse Rate 101 H 101 H 108 H Respiratory Rate 18 Blood Pressure 118/64 Pulse Oximetry 96 01/31/18 21:00 01/31/18 22:00 01/31/18 23:00 Temperature Pulse Rate 105 H 106 H 104 H Respiratory Rate Blood Pressure Pulse Oximetry 01/31/18 23:03 02/01/18 00:00 02/01/18 00:33 Temperature 99.1 F Pulse Rate 106 H Respiratory Rate 18 18 16 Blood Pressure 143/76 H Pulse Oximetry 02/01/18 01:00 02/01/18 02:00 02/01/18 02:10 Temperature 102.0 F H Pulse Rate 110 H 108 H 117 H Respiratory Rate Blood Pressure Pulse Oximetry 02/01/18 02:40 02/01/18 02:55 02/01/18 03:00 Temperature Pulse Rate 120 H Respiratory Rate 18 18 Blood Pressure Pulse Oximetry 02/01/18 04:00 02/01/18 05:00 02/01/18 06:00 Temperature 100.7 F H Pulse Rate 108 H 105 H 102 H Respiratory Rate 18 Blood Pressure 107/62 Pulse Oximetry 93 L 02/01/18 07:00 02/01/18 07:39 02/01/18 08:00 Temperature Pulse Rate 108 H 112 H Respiratory Rate Blood Pressure Pulse Oximetry 94 L 02/01/18 08:49 02/01/18 09:00 02/01/18 09:01 Temperature 100.6 F H Pulse Rate 108 H 109 H Respiratory Rate 19 Blood Pressure 101/52 L Pulse Oximetry 94 L 95 02/01/18 10:00 02/01/18 11:00 02/01/18 11:32 Temperature 99.8 F H Pulse Rate 102 H 68 83 Respiratory Rate 18 Blood Pressure 92/52 L Pulse Oximetry 92 L 02/01/18 12:00 02/01/18 12:52 02/01/18 13:00 Temperature 100.2 F H Pulse Rate 78 75 68 Respiratory Rate 18 Blood Pressure 96/53 L Pulse Oximetry 95 02/01/18 14:00 02/01/18 15:13 Temperature 100.3 F H Pulse Rate 86 83 Respiratory Rate 18 Blood Pressure 113/53 L Pulse Oximetry 96 Intake & Output 01/31/18 02/01/18 02/01/18 18:59 06:59 18:59 Intake Total 480 / 480 1430 / 1430 1100 / 1100 Output Total 200 / 200 200 / 200 Balance 280 / 280 1230 / 1230 1100 / 1100 Weight 81.5 kg Intake: IV 710 / 710 1100 / 1100 Heparin/D5W 25,000 U/250 mL 25, 250 / 250 000 unit In 250 ml @ Per Protocol IV.CONT TITRATE PRN Rx #:[id number] NS Inj 1,000 ML @ 60 mls/hr IV. 1000 / 1000 CONT .[id number] [facility] Rx#:[id number] Calcium Gluconate Inj 1 GM In 110 / 110 D5W Inj 100 ML @ 110 mls/hr IV. SIG ONCE ONE Rx#:[id number] KCl 20 mEq Premix Inj 20 meq In 100 / 100 100 / 100 100 ml @ 50 mls/hr IV.SIG Q2H [facility] Rx#:[id number] Vancomycin Inj 1,000 MG In NS 250 / 250 Inj 250 ML @ 250 mls/hr IV.SIG ONCE ONE Rx#:[id number] Oral 480 / 480 720 / 720 Output: Urine 200 / 200 200 / 200 Other: # Incontinent Voids 1 Date of Last Bowel Movement 01/31/18 <Ilia Pimentel - Last Filed: 02/01/18 17:38> Assessment and Plan - Assessment (1) Acute kidney injury Code(s): N17.9 - Acute kidney failure, unspecified Status: Acute Plan: Patient may have suffered LOLIS due to iodinated contrast received on 01/28/18. In addition, there could be a component of renal hypoperfusion due to NSTEMI. Continue conservative management. Avoid nephrotoxic agents. Monitor urine output and renal function. (2) Type 2 diabetes mellitus Code(s): E11.9 - Type 2 diabetes mellitus without complications Status: Acute Plan: insulin coverage to maintain blood glucose between 140 and 180. (3) Non-ST elevated myocardial infarction (non-STEMI) Code(s): I21.4 - Non-ST elevation (NSTEMI) myocardial infarction Status: Acute - Plan Cardiology on the case. <Jesse Avila - Last Filed: 02/01/18 12:32> - Assessment (1) Acute kidney injury Code(s): N17.9 - Acute kidney failure, unspecified Status: Acute (2) Type 2 diabetes mellitus Code(s): E11.9 - Type 2 diabetes mellitus without complications Status: Acute (3) Non-ST elevated myocardial infarction (non-STEMI) Code(s): I21.4 - Non-ST elevation (NSTEMI) myocardial infarction Status: Acute - Attending Attestation patient was seen and examined. Renal function is stable, no additional workup is needed. Slightly higher risk for contrast nephropathy if cardiac catheterization is performed, risk of LOLIS about 20-25%. Dialysis risk about 1 % <Ilia Pimentel - Last Filed: 02/01/18 17:38>
[2018-02-01] MEDS: Sod Chloride 0.9% Inj 1,000 ML IV.CONT SCH (13:33)
[2018-02-01] MEDS ORDERED: Metoprolol Tartrate 25 MG Tablet PO ONE (14:00)
--- NOTE | 2018-02-01 14:36 | P.PNIM ---
Subjective Interval history: Patient currently denies any complaints of chest pain. She is awake alert answering my questions and speaking appropriately. Physical Exam Vital signs: Vital Signs 01/31/18 15:00 01/31/18 15:42 01/31/18 16:00 Temperature 100.9 F H Pulse Rate 110 H 114 H 111 H Respiratory Rate 20 Blood Pressure 153/84 H Pulse Oximetry 95 01/31/18 17:00 01/31/18 18:00 01/31/18 19:00 Temperature Pulse Rate 115 H 101 H 101 H Respiratory Rate Blood Pressure Pulse Oximetry 01/31/18 20:00 01/31/18 21:00 01/31/18 22:00 Temperature 101.9 F H Pulse Rate 108 H 105 H 106 H Respiratory Rate 18 Blood Pressure 118/64 Pulse Oximetry 96 01/31/18 23:00 01/31/18 23:03 02/01/18 00:00 Temperature 99.1 F Pulse Rate 104 H 106 H Respiratory Rate 18 18 Blood Pressure 143/76 H Pulse Oximetry 02/01/18 00:33 02/01/18 01:00 02/01/18 02:00 Temperature Pulse Rate 110 H 108 H Respiratory Rate 16 Blood Pressure Pulse Oximetry 02/01/18 02:10 02/01/18 02:40 02/01/18 02:55 Temperature 102.0 F H Pulse Rate 117 H Respiratory Rate 18 18 Blood Pressure Pulse Oximetry 02/01/18 03:00 02/01/18 04:00 02/01/18 05:00 Temperature 100.7 F H Pulse Rate 120 H 108 H 105 H Respiratory Rate 18 Blood Pressure 107/62 Pulse Oximetry 93 L 02/01/18 06:00 02/01/18 07:39 02/01/18 08:49 Temperature Pulse Rate 102 H Respiratory Rate Blood Pressure Pulse Oximetry 94 L 94 L 02/01/18 09:01 02/01/18 11:32 02/01/18 12:52 Temperature 100.6 F H 99.8 F H 100.2 F H Pulse Rate 109 H 83 75 Respiratory Rate 19 18 18 Blood Pressure 101/52 L 92/52 L 96/53 L Pulse Oximetry 95 92 L 95 Intake & Output 01/31/18 02/01/18 02/01/18 18:59 06:59 18:59 Intake Total 480 / 480 1430 / 1430 1000 / 1000 Output Total 200 / 200 200 / 200 Balance 280 / 280 1230 / 1230 1000 / 1000 Weight 81.5 kg Intake: IV 710 / 710 1000 / 1000 Heparin/D5W 25,000 U/250 mL 25, 250 / 250 000 unit In 250 ml @ Per Protocol IV.CONT TITRATE PRN Rx #:[id number] NS Inj 1,000 ML @ 60 mls/hr IV. 1000 / 1000 CONT .[id number] REPLACED BY [facility] Rx#:[id number] Calcium Gluconate Inj 1 GM In 110 / 110 D5W Inj 100 ML @ 110 mls/hr IV. SIG ONCE ONE Rx#:[id number] KCl 20 mEq Premix Inj 20 meq In 100 / 100 100 ml @ 50 mls/hr IV.SIG Q2H REPLACED BY [facility] Rx#:[id number] Vancomycin Inj 1,000 MG In NS 250 / 250 Inj 250 ML @ 250 mls/hr IV.SIG ONCE ONE Rx#:[id number] Oral 480 / 480 720 / 720 Output: Urine 200 / 200 200 / 200 Other: # Incontinent Voids 1 Date of Last Bowel Movement 01/31/18 Narrative: General patient in no acute distress, the patient currently does not have any complaints of chest pain. No cough HEENT extraocular movements are intact, clear oropharyngeal mucosa, no JVD Cardiovascular S1-S2 audible, RRR, no murmurs rubs or gallops Respiratory clear to auscultation bilaterally Abdomen soft, nontender, nondistended, normal bowel sounds Extremities no edema 2+ distal pulses in bilateral upper and lower extremities Neuro patient moves all 4 extremities and sensation is intact bilaterally. Patient is currently alert and oriented x3 following my commands appropriately she is answering questions appropriately. Results - Labs CBC & Chem 7: 02/01/18 04:47 02/01/18 04:47 Laboratory Results - last 24 hr 01/31/18 01/31/18 01/31/18 14:15 16:10 18:06 WBC RBC Hgb Hct MCV MCH MCHC RDW Plt Count MPV Neut % (Auto) Lymph % (Auto) [place] % (Auto) Eos % (Auto) Baso % (Auto) Neut # (Auto) Lymph # (Auto) [place] # (Auto) Eos # (Auto) Baso # (Auto) WBC Differential Differential Comment APTT 33.2 H Sodium Potassium Chloride Carbon Dioxide Anion Gap BUN Creatinine Estimated GFR POC Glucose Random Glucose Lactic Acid Calcium Prot Corrected Calcium Total Bilirubin AST ALT Alkaline Phosphatase Total Creatine Kinase CK-MB (CK-2) CK-MB (CK-2) % Troponin I 1.40 H* D Total Protein Albumin Urine Color Yellow Urine Clarity Clear Urine pH 5.0 Ur Specific Archer 1.015 Urine Protein 30 H Urine Glucose (UA) Negative Urine Ketones Negative Urine Occult Blood Negative Urine Nitrate Negative Urine Bilirubin Negative Urine Urobilinogen Less than 2 Ur Leukocyte Esterase Trace H Urine RBC 1 Urine WBC 1 Ur Squamous Epith Cells 1 Micro UA Comment Culture not ind Ur Microscopic Review Not Reportable Urine Culture Comments Culture not ind 01/31/18 01/31/18 01/31/18 20:33 21:43 21:43 WBC RBC Hgb Hct MCV MCH MCHC RDW Plt Count MPV Neut % (Auto) Lymph % (Auto) [place] % (Auto) Eos % (Auto) Baso % (Auto) Neut # (Auto) Lymph # (Auto) [place] # (Auto) Eos # (Auto) Baso # (Auto) WBC Differential Differential Comment APTT 80.2 H D Sodium Potassium Chloride Carbon Dioxide Anion Gap BUN Creatinine Estimated GFR POC Glucose 174 H Random Glucose Lactic Acid 1.5 Calcium Prot Corrected Calcium Total Bilirubin AST ALT Alkaline Phosphatase Total Creatine Kinase CK-MB (CK-2) CK-MB (CK-2) % Troponin I Total Protein Albumin Urine Color Urine Clarity Urine pH Ur Specific Archer Urine Protein Urine Glucose (UA) Urine Ketones Urine Occult Blood Urine Nitrate Urine Bilirubin Urine Urobilinogen Ur Leukocyte Esterase Urine RBC Urine WBC Ur Squamous Epith Cells Micro UA Comment Ur Microscopic Review Urine Culture Comments 01/31/18 01/31/18 01/31/18 23:56 23:56 23:56 WBC 12.2 H RBC 3.76 L Hgb 10.8 L D Hct 33.2 L MCV 88.2 MCH 28.7 MCHC 32.5 RDW 16.0 Plt Count 150 MPV 10.3 Neut % (Auto) 77.3 H Lymph % (Auto) 12.3 [place] % (Auto) 9.3 H Eos % (Auto) 0.4 Baso % (Auto) 0.7 Neut # (Auto) 9.5 H Lymph # (Auto) 1.5 [place] # (Auto) 1.1 H Eos # (Auto) 0.1 Baso # (Auto) 0.1 WBC Differential . Differential Comment Auto diff final APTT Sodium 140 Potassium 3.1 L D Chloride 106 Carbon Dioxide 23.3 Anion Gap 11 BUN 23 H Creatinine 1.06 H Estimated GFR 49 L POC Glucose Random Glucose 258 H Lactic Acid Calcium 6.9 L* D Prot Corrected Calcium 7.4 L* Total Bilirubin 0.6 AST 58 H ALT 27 Alkaline Phosphatase 69 Total Creatine Kinase 265 H CK-MB (CK-2) 19.5 H CK-MB (CK-2) % 7.4 H* Troponin I 5.27 H* D Total Protein 6.2 L D Albumin 2.7 L D Urine Color Urine Clarity Urine pH Ur Specific Archer Urine Protein Urine Glucose (UA) Urine Ketones Urine Occult Blood Urine Nitrate Urine Bilirubin Urine Urobilinogen Ur Leukocyte Esterase Urine RBC Urine WBC Ur Squamous Epith Cells Micro UA Comment Ur Microscopic Review Urine Culture Comments 02/01/18 02/01/18 02/01/18 04:47 04:47 04:47 WBC 16.1 H RBC 3.87 L Hgb 11.1 L Hct 34.5 L MCV 89.1 MCH 28.8 MCHC 32.3 RDW 16.1 Plt Count 167 MPV 11.0 Neut % (Auto) 82.5 H Lymph % (Auto) 7.4 L [place] % (Auto) 9.7 H Eos % (Auto) 0.1 Baso % (Auto) 0.3 Neut # (Auto) 13.3 H Lymph # (Auto) 1.2 [place] # (Auto) 1.6 H Eos # (Auto) 0.0 Baso # (Auto) 0.1 WBC Differential . Differential Comment Auto diff final APTT 41.7 H D Sodium 138 Potassium 4.2 D Chloride 104 Carbon Dioxide 24.0 Anion Gap 10 BUN 25 H Creatinine 1.20 H Estimated GFR 42 L POC Glucose Random Glucose 265 H Lactic Acid Calcium 8.4 L D Prot Corrected Calcium Total Bilirubin 0.8 AST 64 H ALT 26 Alkaline Phosphatase 79 Total Creatine Kinase CK-MB (CK-2) CK-MB (CK-2) % Troponin I Total Protein 6.7 Albumin 2.9 L Urine Color Urine Clarity Urine pH Ur Specific Archer Urine Protein Urine Glucose (UA) Urine Ketones Urine Occult Blood Urine Nitrate Urine Bilirubin Urine Urobilinogen Ur Leukocyte Esterase Urine RBC Urine WBC Ur Squamous Epith Cells Micro UA Comment Ur Microscopic Review Urine Culture Comments 02/01/18 02/01/1802/01/18 08:13 11:32 11:55 WBC RBC Hgb Hct MCV MCH MCHC RDW Plt Count MPV Neut % (Auto) Lymph % (Auto) [place] % (Auto) Eos % (Auto) Baso % (Auto) Neut # (Auto) Lymph # (Auto) [place] # (Auto) Eos # (Auto) Baso # (Auto) WBC Differential Differential Comment APTT 43.9 H Sodium Potassium Chloride Carbon Dioxide Anion Gap BUN Creatinine Estimated GFR POC Glucose 350 H 377 H Random Glucose Lactic Acid Calcium Prot Corrected Calcium Total Bilirubin AST ALT Alkaline Phosphatase Total Creatine Kinase CK-MB (CK-2) CK-MB (CK-2) % Troponin I Total Protein Albumin Urine Color Urine Clarity Urine pH Ur Specific Archer Urine Protein Urine Glucose (UA) Urine Ketones Urine Occult Blood Urine Nitrate Urine Bilirubin Urine Urobilinogen Ur Leukocyte Esterase Urine RBC Urine WBC Ur Squamous Epith Cells Micro UA Comment Ur Microscopic Review Urine Culture Comments Microbiology 01/31/18 21:38 Blood - Peripheral Aerobic Blood Culture - Preliminary No growth in 1 day 01/31/18 21:38 Blood - Peripheral Anaerobic Blood Culture - Preliminary No growth in 1 day 01/31/18 21:43 Blood - Peripheral Aerobic Blood Culture - Preliminary No growth in 1 day 01/31/18 21:43 Blood - Peripheral Anaerobic Blood Culture - Preliminary No growth in 1 day 01/31/18 22:30 Nasal Wash Influenza Types A,B Antigen - Final Negative for FLU A and B antigen Infection due to influenza A or B cannot be ruled out since the antigen present in the sample may be below the detection limit of the test. Assessment and Plan - Plan This patient is a 87-year-old female with known coronary artery disease. The patient had stents in her LAD and right coronary which was done approximately 15 years ago. The patient's last cardiac catheterization was in February 2004. At that time the patient had an LAD stent and 40% restenosis of the right coronary artery stent as per documentation. The patient was recently admitted for non-ST segment elevation NC a few days ago and was treated and then discharged home. The patient subsequently had recurrent chest pain yesterday and came into the emergency department for evaluation and care. 1. Non-ST segment elevation NC 2. Acute kidney injury on CKD stage III Patient was evaluated in the ED. She was having complaints of chest pain. EKG was done which shows sinus rhythm, left axis deviation. No obvious ST or T wave changes on my evaluation of the EKG. Troponins were found to be elevated at 1.25 and peaked at 5.27 as of last night. Cardiology has evaluated the patient and given the patient's history of coronary artery disease, current acute kidney injury with a serum creatinine of 1.2 GFR 42 she is not a good candidate to undergo cardiac catheterization at this time. I discussion with the patient's granddaughter Treva over the phone who is in [place]. The patient is currently full code and I wanted to speak to the patient's son who is in charge of her medical decisions. The patient is currently alert and oriented x3 and she is to make her medical decisions. I will attempt to discuss the patient's current condition with her son and we will go from there. The plan is to continue aspirin, statin, beta-julio cesar, Plavix, heparin drip. I will follow-up with cardiology for future plans. Nephrology is also following the patient for acute kidney injury, they recommend continuing conservative management, avoid nephrotoxic agents. We will continue to monitor her kidney function. 3. Systemic inflammatory response syndrome concern for sepsis The patient has an elevated WBC count, she continues to have febrile episodes. UA does not show any significant evidence of UTI, chest x-ray does not show any clear infiltrate. The patient denies having a cough. On my evaluation the patient does not have any obvious cellulitis anywhere on her body. I will start the patient on ciprofloxacin and vancomycin which will be renally adjusted. Blood cultures were drawn in the emergency department and currently pending. If the fevers do not break I will consult infectious disease to evaluate the patient. 4. Insulin-dependent diabetes The patient's blood sugars have been high. We will start the patient on a low- dose insulin sliding scale and adjust her diabetes mellitus medication regimen as needed.
[2018-02-01] MEDS ORDERED: Ciprofloxacin 400 MG/200 ML 400 MG/200 ML PIGGYBACK IV.SIG SCH (15:00)
[2018-02-01] MEDS ORDERED: Dextrose 50% in Water 50 ML Vial IV.PUSH PRN ×2 (15:12→18:05)
--- NOTE | 2018-02-01 16:38 | P.CONPAL ---
Consult Service: Palliative Care Requesting Physician: Dania Blanchard Reason for Consult: a. To assist with evaluation and management of symptoms including: Chest pain, anxiety b. To assist medical decision maker(s) with: better understanding of current medical conditions; weighing benefits/burdens of medical treatment options; making medical treatment decisions. Primary Care Provider: Pavithra Carbone MD History of Present Illness History of Present Illness: This is an 87-year-old female with a past medical history of diabetes, hypertension, rectal cancer in remission, anxiety, depression, coronary artery disease status post stent, former smoker who presented to the emergency department 01/31/2018 plane of chest pain, substernal, pressure, nonradiating, persistent, which resolved with aspirin and sublingual nitro given to her by EMS. She had taken a Xanax earlier to try and help her sleep. Her presenting troponin was 1.25 did she had been seen in the ED on 01/28 and had troponin levels of 0.11, 0.96, 1.08. She was diagnosed with a non-STEMI and seen by cardiology. Cardiac catheterization was held secondary to renal insufficiency. Nephrology consultation was requested for further evaluation. Diagnostic data on admission. * Chest x-ray showed no significant change, mild left base atelectasis otherwise within normal limits. * EKG shows borderline sinus tachycardia with frequent PVCs with no major evidence of acute ST elevation ID pattern. * WBC 11.4, hemoglobin 12.1, hematocrit 35.8, platelets 192, sodium 141, potassium 3.9, BUN 35, creatinine 1.57, glucose 318, T CK 242, CK-MB 4.7, Troponin I 1.25, Total bilirubin 0.3, AST 41, ALT 26, alkaline phosphatase 82, albumin 3.4 This is a frail elderly female, lying in bed, lethargic, arousable, mildly confused. She will only state that she "wants to go home" then falls back to sleep. She states that she has had a little bit of chest pain but is unable to further quantify that due to her lethargy. In discussion with her family they say that she has occasional bouts of confusion but after multiple repetitions is usually able to grasp basic concepts. Past medical history Diabetes Hypertension Coronary artery disease status post PCI, admitted with non-STEMI Rectal cancer in remission Anxiety Depression Former tobacco abuse Surgical history Hysterectomy Cardiac cath with PCI Tonsillectomy Appendectomy Social history Previous tobacco use. Rare alcohol use. No history of substance abuse. Family history Positive for hypertension. . Function/Cognitive Trajectory: She no longer drives and now has friends cherry picker operator her groceries for her and put them away. She uses premade meals but is able to ambulate in her home, keep her home tidy, bathe and dress herself but requires transportation from friends for doctor's visits and other social appointments. . . Review of Systems Constitutional: Reports other (Lethargy) Cardiovascular: Reports chest pain PMFSH - History History Provided By: Patient - Medical History Medical History: Medical History (Last Reviewed 02/07/18 @ 09:44 by Devorah Smith) MDRO (multiple drug resistant organisms) resistance Onset Date: ~02/02/18 Chest pain Diabetes History of hysterectomy Hyperlipidemia Hypertension Rectal cancer - Surgical History Surgical History: Surgical History (Last Reviewed 02/07/18 @ 09:44 by Devorah Smith) H/O heart artery stent History of tonsillectomy Hx of appendectomy - Family History Family History: Family History (Last Reviewed 01/31/18 @ 06:02 by Parmjit Rivers MD) Other Family history of hypertension - Tobacco History Second Hand Smoke Exposure: No Smoking Status: Former smoker Tobacco Type: Cigarettes - Alcohol History How Often Do You Have a Drink Containing Alcohol: Monthly or less - Substance Use History Substance History: No History of Abuse - Immunization History Tetanus Immunization: Unsure Medications and Allergies Active Medications: Active Medications Acetaminophen (Tylenol) 500 mg PO Q4H PRN PRN Reason: FEVER > 100.4 F Last Admin: 02/01/18 09:10 Dose: 500 mg Al Hydroxide/Mg Hydroxide (Milk Of Nita Liroyce) 30 ml PO Q12H PRN PRN Reason: Mild Constipation Alprazolam (Xanax) 0.5 mg PO Q8H PRN PRN Reason: ANXIETY Last Admin: 02/01/18 01:33 Dose: 0.5 mg Aspirin (Ecotrin) 81 mg PO DAILY [facility] Last Admin: 02/01/18 09:07 Dose: 81 mg Atorvastatin Calcium (Lipitor) 40 mg PO HS [facility] Last Admin: 01/31/18 20:36 Dose: 40 mg Bisacodyl (Dulcolax Supp) 10 mg RECTAL DAILY PRN PRN Reason: SEVERE CONSITIPATION Clopidogrel Bisulfate (Plavix) 75 mg PO DAILY [facility] Last Admin: 02/01/18 09:06 Dose: 75 mg Dextrose (D50w Vial) 50 ml IV.PUSH UNSCH PRN PRN Reason: PER HYPOGLYCEMIA PROTOCOL Glucagon (Glucagon Inj) 1 mg OTHER PRN PRN PRN Reason: for Hypoglycemia Protocol Heparin Sodium (Porcine) (Heparin Inj) 5,000 units IV.PUSH UNSCH PRN PRN Reason: aPTT < 25 Heparin Sodium (Porcine) (Heparin Inj) 2,500 units IV.PUSH UNSCH PRN PRN Reason: aPTT 25-39 Last Admin: 01/31/18 20:37 Dose: 2,500 units Heparin Sodium/Dextrose (Heparin/D5w 25,000 U/250 Ml) 25,000 unit in 250 mls @ 0 mls/hr IV.CONT TITRATE PRN; Protocol PRN Reason: Per Protocol Last Admin: 02/01/18 03:36 Dose: 900 units/hr, 9 mls/hr Sodium Chloride (Ns Inj) 1,000 mls @ 60 mls/hr IV.CONT .[id number] [facility] Last Admin: 02/01/18 13:33 Dose: 60 mls/hr Nitroglycerin/Dextrose (Nitroglycerin Drip Premix) 50 mg in 250 mls @ 1.5 mls/ hr IV.CONT TITRATE PRN; Protocol PRN Reason: Per Protocol Last Titration: 02/01/18 11:36 Dose: 0 mcg/min, 0 mls/hr Ciprofloxacin/Dextrose (Cipro 400 Mg/200 Ml Inj) 400 mg in 200 mls @ 200 mls/ hr IV.SIG Q12H [facility] Insulin Aspart (Novolog Insulin Correctional Sugar Inj) 0 unit SQ ACHS [facility]; Protocol Last Admin: 02/01/18 13:31 Dose: 9 unit Insulin Glargine (Lantus Inj) 5 units SQ HS [facility] Lactulose (Lactulose Liq) 30 ml PO DAILY PRN PRN Reason: SEVERE CONSITIPATION Miscellaneous (Pill Splitter) 1 each OTHER UNSCH PRN PRN Reason: SEE LABEL COMMENTS Morphine Sulfate (Morphine Inj) 2 mg IV.PUSH Q20M PRN PRN Reason: PAIN 1-10 Last Admin: 02/01/18 02:53 Dose: 2 mg Nitroglycerin (Nitro-Bid 2% Oint) 0.5 inch TOPICAL Q6HR [facility] Last Admin: 02/01/18 11:35 Dose: Not Given Sennosides (Senokot) 17.2 mg PO Q12H PRN PRN Reason: Moderate Constipation Sodium Chloride (Ns Flush) 2 ml IV.FLUSH BID [facility] Last Admin: 02/01/18 09:07 Dose: 2 ml Sodium Chloride (Ns Flush) 2 ml IV.FLUSH PRN PRN PRN Reason: FLUSH AFTER USING IV ACCESS Tramadol HCl (Ultram) 50 mg PO Q6H PRN PRN Reason: Pain 1-10 Allergies Allergy/AdvReac Type Severity Reaction Status Date / Time penicillin G Allergy Severe UNKNOWN Verified 01/31/18 02:06 Sulfa (Sulfonamide Allergy Severe UNKNOWN Verified 01/31/18 02:06 Antibiotics) ciprofloxacin AdvReac unknown Verified 02/03/18 11:14 Home Medications Medication Instructions Recorded Confirmed Type alprazolam 0.5 mg PO Q8HR PRN 01/31/18 01/31/18 History tramadol 50 mg PO Q6H PRN 01/31/18 01/31/18 History Advance Directives Living Will: Yes Healthcare Surrogate: Yes Health Care Surrogate Name and Number: Treva Arvizu Power of Freight Elevator Operator: No Physical Exam Vital Signs: Vital Signs - 24 hr 01/31/18 17:00 01/31/18 18:00 01/31/18 19:00 Temperature Pulse Rate 115 H 101 H 101 H Respiratory Rate Blood Pressure Pulse Oximetry 01/31/18 20:00 01/31/18 21:00 01/31/18 22:00 Temperature 101.9 F H Pulse Rate 108 H 105 H 106 H Respiratory Rate 18 Blood Pressure 118/64 Pulse Oximetry 96 01/31/18 23:00 01/31/18 23:03 02/01/18 00:00 Temperature 99.1 F Pulse Rate 104 H 106 H Respiratory Rate 18 18 Blood Pressure 143/76 H Pulse Oximetry 02/01/18 00:33 02/01/18 01:00 02/01/18 02:00 Temperature Pulse Rate 110 H 108 H Respiratory Rate 16 Blood Pressure Pulse Oximetry 02/01/18 02:10 02/01/18 02:40 02/01/18 02:55 Temperature 102.0 F H Pulse Rate 117 H Respiratory Rate 18 18 Blood Pressure Pulse Oximetry 02/01/18 03:00 02/01/18 04:00 02/01/18 05:00 Temperature 100.7 F H Pulse Rate 120 H 108 H 105 H Respiratory Rate 18 Blood Pressure 107/62 Pulse Oximetry 93 L 02/01/18 06:00 02/01/18 07:00 02/01/18 07:39 Temperature Pulse Rate 102 H 108 H Respiratory Rate Blood Pressure Pulse Oximetry 94 L 02/01/18 08:00 02/01/18 08:49 02/01/18 09:00 Temperature Pulse Rate 112 H 108 H Respiratory Rate Blood Pressure Pulse Oximetry 94 L 02/01/18 09:01 02/01/18 10:00 02/01/18 11:00 Temperature 100.6 F H Pulse Rate 109 H 102 H 68 Respiratory Rate 19 Blood Pressure 101/52 L Pulse Oximetry 95 02/01/18 11:32 02/01/18 12:00 02/01/18 12:52 Temperature 99.8 F H 100.2 F H Pulse Rate 83 78 75 Respiratory Rate 18 18 Blood Pressure 92/52 L 96/53 L Pulse Oximetry 92 L 95 02/01/18 13:00 02/01/18 14:00 02/01/18 15:13 Temperature 100.3 F H Pulse Rate 68 86 83 Respiratory Rate 18 Blood Pressure 113/53 L Pulse Oximetry 96 I&O: Intake & Output 01/30/18 01/31/18 02/01/18 02/02/18 06:59 06:59 06:59 06:59 Intake Total 1910 / 1910 1100 / 1100 Output Total 400 / 400 Balance 1510 / 1510 1100 / 1100 Weight 180 lb 179 lb 10.828 oz Physical Exam: CONSTITUTIONAL/GENERAL: This is an adequately nourished patient, lying in bed, lethargic in no apparent distress. TUBES/LINES/DRAINS: PIV SKIN: No jaundice, rashes, or lesions. Ecchymoses on upper extremities. No wounds seen anteriorly. Skin temperature appropriate. Not diaphoretic. HEAD: Atraumatic. Normocephalic. EYES: Pupils equal and round and reactive. Extraocular motions intact. No scleral icterus. No injection or drainage. Fundi not examined. ENT: Hearing grossly normal. Nose without bleeding or purulent drainage. Throat without visible erythema, exudates, masses, or lesions. NECK: Trachea midline. Supple, nontender. No palpable thyroid enlargement or nodularity. CARDIOVASCULAR: Regular rate and rhythm without murmurs, gallops, or rubs. No JVD. Peripheral pulses symmetric. RESPIRATORY/CHEST: Symmetric, unlabored respirations. Clear to auscultation. Breath sounds equal bilaterally. No wheezes, rales, or rhonchi. GASTROINTESTINAL: Abdomen soft, non-tender, nondistended. No hepato-splenomegaly , or palpable masses. No guarding. Bowel sounds present. GENITOURINARY: Without palpable bladder distension. MUSCULOSKELETAL: Extremities without clubbing, cyanosis, or edema. No joint tenderness or effusion noted. No calf tenderness. No mottling or clubbing. LYMPHATICS: No palpable cervical or supraclavicular adenopathy. NEUROLOGICAL: Lethargic, arousable, dozes off in less than 10 seconds. Motor and sensory grossly within normal limits. Follows commands. Moves all extremities. PSYCHIATRIC: No obvious anxiety/depression. no apparent hallucinations or other psychotic thought process. . Diagnostic Tests Laboratory: Laboratory Results - last 72 hr 01/31/18 01/31/18 01/31/18 02:30 02:30 02:30 WBC 11.4 H RBC 4.14 Hgb 12.1 Hct 35.8 MCV 86.5 MCH 29.3 MCHC 33.8 RDW 15.7 Plt Count 192 MPV 10.6 Prelim Diff (Auto) Slide review pending Neut % (Auto) 74.2 H Lymph % (Auto) 12.9 Rhea % (Auto) 9.4 H Eos % (Auto) 2.5 Baso % (Auto) 1.0 Neut # (Auto) 8.4 H Lymph # (Auto) 1.5 Rhea # (Auto) 1.1 H Eos # (Auto) 0.3 Baso # (Auto) 0.1 WBC Differential . Diff Scan Auto diff confirmed Differential Comment . Platelet Estimate Normal Platelet Morphology Enlarged H RBC Morphology Normal PT INR APTT Sodium 141 Potassium 3.9 Chloride 104 Carbon Dioxide 23.4 Anion Gap 14 BUN 35 H Creatinine 1.57 H Estimated GFR 31 L POC Glucose Random Glucose 318 H Hemoglobin A1c Lactic Acid Calcium 8.3 L Prot Corrected Calcium Total Bilirubin 0.3 AST 41 H ALT 26 Alkaline Phosphatase 82 Total Creatine Kinase 242 H CK-MB (CK-2) 4.7 H CK-MB (CK-2) % 1.9 Troponin I 1.25 H* D B-Natriuretic Peptide 407 H Total Protein 7.1 Albumin 3.4 Urine Color Urine Clarity Urine pH Ur Specific [place] Urine Protein Urine Glucose (UA) Urine Ketones Urine Occult Blood Urine Nitrate Urine Bilirubin Urine Urobilinogen Ur Leukocyte Esterase Urine RBC Urine WBC Ur Squamous Epith Cells Micro UA Comment Ur Microscopic Review Urine Culture Comments 01/31/18 01/31/18 01/31/18 02:30 04:00 08:48 WBC RBC Hgb Hct MCV MCH MCHC RDW Plt Count MPV Prelim Diff (Auto) Neut % (Auto) Lymph % (Auto) Rhea % (Auto) Eos % (Auto) Baso % (Auto) Neut # (Auto) Lymph # (Auto) Rhea # (Auto) Eos # (Auto) Baso # (Auto) WBC Differential Diff Scan Differential Comment Platelet Estimate Platelet Morphology RBC Morphology PT 10.5 INR 1.0 APTT 21.3 L Sodium Potassium Chloride Carbon Dioxide Anion Gap BUN Creatinine Estimated GFR POC Glucose 211 H Random Glucose Hemoglobin A1c Cancelled Lactic Acid Calcium Prot Corrected Calcium Total Bilirubin AST ALT Alkaline Phosphatase Total Creatine Kinase CK-MB (CK-2) CK-MB (CK-2) % Troponin I B-Natriuretic Peptide Total Protein Albumin Urine Color Urine Clarity Urine pH Ur Specific [place] Urine Protein Urine Glucose (UA) Urine Ketones Urine Occult Blood Urine Nitrate Urine Bilirubin Urine Urobilinogen Ur Leukocyte Esterase Urine RBC Urine WBC Ur Squamous Epith Cells Micro UA Comment Ur Microscopic Review Urine Culture Comments 01/31/18 01/31/18 01/31/18 09:10 11:01 11:01 WBC 9.4 RBC 4.34 Hgb 12.8 Hct 38.5 MCV 88.6 MCH 29.4 MCHC 33.2 RDW 16.0 Plt Count 157 MPV 10.3 Prelim Diff (Auto) Neut % (Auto) Lymph % (Auto) Rhea % (Auto) Eos % (Auto) Baso % (Auto) Neut # (Auto) Lymph # (Auto) Rhea # (Auto) Eos # (Auto) Baso # (Auto) WBC Differential Diff Scan Differential Comment Platelet Estimate Platelet Morphology RBC Morphology PT INR APTT 37.6 H D Sodium Potassium Chloride Carbon Dioxide Anion Gap BUN Creatinine Estimated GFR POC Glucose Random Glucose Hemoglobin A1c Lactic Acid Calcium Prot Corrected Calcium Total Bilirubin AST ALT Alkaline Phosphatase Total Creatine Kinase CK-MB (CK-2) CK-MB (CK-2) % Troponin I 1.73 H* D B-Natriuretic Peptide Total Protein Albumin Urine Color Urine Clarity Urine pH Ur Specific [place] Urine Protein Urine Glucose (UA) Urine Ketones Urine Occult Blood Urine Nitrate Urine Bilirubin Urine Urobilinogen Ur Leukocyte Esterase Urine RBC Urine WBC Ur Squamous Epith Cells Micro UA Comment Ur Microscopic Review Urine Culture Comments 01/31/18 01/31/18 01/31/18 13:55 14:15 16:10 WBC RBC Hgb Hct MCV MCH MCHC RDW Plt Count MPV Prelim Diff (Auto) Neut % (Auto) Lymph % (Auto) Rhea % (Auto) Eos % (Auto) Baso % (Auto) Neut # (Auto) Lymph # (Auto) Rhea # (Auto) Eos # (Auto) Baso # (Auto) WBC Differential Diff Scan Differential Comment Platelet Estimate Platelet Morphology RBC Morphology PT INR APTT 33.2 H Sodium Potassium Chloride Carbon Dioxide Anion Gap BUN Creatinine Estimated GFR POC Glucose 188 H Random Glucose Hemoglobin A1c Lactic Acid Calcium Prot Corrected Calcium Total Bilirubin AST ALT Alkaline Phosphatase Total Creatine Kinase CK-MB (CK-2) CK-MB (CK-2) % Troponin I 1.40 H* D B-Natriuretic Peptide Total Protein Albumin Urine Color Urine Clarity Urine pH Ur Specific [place] Urine Protein Urine Glucose (UA) Urine Ketones Urine Occult Blood Urine Nitrate Urine Bilirubin Urine Urobilinogen Ur Leukocyte Esterase Urine RBC Urine WBC Ur Squamous Epith Cells Micro UA Comment Ur Microscopic Review Urine Culture Comments 01/31/18 01/31/18 01/31/18 18:06 20:33 21:43 WBC RBC Hgb Hct MCV MCH MCHC RDW Plt Count MPV Prelim Diff (Auto) Neut % (Auto) Lymph % (Auto) Rhea % (Auto) Eos % (Auto) Baso % (Auto) Neut # (Auto) Lymph # (Auto) Rhea # (Auto) Eos # (Auto) Baso # (Auto) WBC Differential Diff Scan Differential Comment Platelet Estimate Platelet Morphology RBC Morphology PT INR APTT 80.2 H D Sodium Potassium Chloride Carbon Dioxide Anion Gap BUN Creatinine Estimated GFR POC Glucose 174 H Random Glucose Hemoglobin A1c Lactic Acid Calcium Prot Corrected Calcium Total Bilirubin AST ALT Alkaline Phosphatase Total Creatine Kinase CK-MB (CK-2) CK-MB (CK-2) % Troponin I B-Natriuretic Peptide Total Protein Albumin Urine Color Yellow Urine Clarity Clear Urine pH 5.0 Ur Specific [place] 1.015 Urine Protein 30 H Urine Glucose (UA) Negative Urine Ketones Negative Urine Occult Blood Negative Urine Nitrate Negative Urine Bilirubin Negative Urine Urobilinogen Less than 2 Ur Leukocyte Esterase Trace H Urine RBC 1 Urine WBC 1 Ur Squamous Epith Cells 1 Micro UA Comment Culture not ind Ur Microscopic Review Not Reportable Urine Culture Comments Culture not ind 01/31/18 01/31/18 01/31/18 21:43 23:56 23:56 WBC 12.2 H RBC 3.76 L Hgb 10.8 L D Hct 33.2 L MCV 88.2 MCH 28.7 MCHC 32.5 RDW 16.0 Plt Count 150 MPV 10.3 Prelim Diff (Auto) Neut % (Auto) 77.3 H Lymph % (Auto) 12.3 Rhea % (Auto) 9.3 H Eos % (Auto) 0.4 Baso % (Auto) 0.7 Neut # (Auto) 9.5 H Lymph # (Auto) 1.5 Rhea # (Auto) 1.1 H Eos # (Auto) 0.1 Baso # (Auto) 0.1 WBC Differential . Diff Scan Differential Comment Auto diff final Platelet Estimate Platelet Morphology RBC Morphology PT INR APTT Sodium 140 Potassium 3.1 L D Chloride 106 Carbon Dioxide 23.3 Anion Gap 11 BUN 23 H Creatinine 1.06 H Estimated GFR 49 L POC Glucose Random Glucose 258 H Hemoglobin A1c Lactic Acid 1.5 Calcium 6.9 L* D Prot Corrected Calcium 7.4 L* Total Bilirubin 0.6 AST 58 H ALT 27 Alkaline Phosphatase 69 Total Creatine Kinase CK-MB (CK-2) CK-MB (CK-2) % Troponin I B-Natriuretic Peptide Total Protein 6.2 L D Albumin 2.7 L D Urine Color Urine Clarity Urine pH Ur Specific [place] Urine Protein Urine Glucose (UA) Urine Ketones Urine Occult Blood Urine Nitrate Urine Bilirubin Urine Urobilinogen Ur Leukocyte Esterase Urine RBC Urine WBC Ur Squamous Epith Cells Micro UA Comment Ur Microscopic Review Urine Culture Comments 01/31/18 02/01/18 02/01/18 23:56 04:47 04:47 WBC 16.1 H RBC 3.87 L Hgb 11.1 L Hct 34.5 L MCV 89.1 MCH 28.8 MCHC 32.3 RDW 16.1 Plt Count 167 MPV 11.0 Prelim Diff (Auto) Neut % (Auto) 82.5 H Lymph % (Auto) 7.4 L Rhea % (Auto) 9.7 H Eos % (Auto) 0.1 Baso % (Auto) 0.3 Neut # (Auto) 13.3 H Lymph # (Auto) 1.2 Rhea # (Auto) 1.6 H Eos # (Auto) 0.0 Baso # (Auto) 0.1 WBC Differential . Diff Scan Differential Comment Auto diff final Platelet Estimate Platelet Morphology RBC Morphology PT INR APTT Sodium 138 Potassium 4.2 D Chloride 104 Carbon Dioxide 24.0 Anion Gap 10 BUN 25 H Creatinine 1.20 H Estimated GFR 42 L POC Glucose Random Glucose 265 H Hemoglobin A1c Lactic Acid Calcium 8.4 L D Prot Corrected Calcium Total Bilirubin 0.8 AST 64 H ALT 26 Alkaline Phosphatase 79 Total Creatine Kinase 265 H CK-MB (CK-2) 19.5 H CK-MB (CK-2) % 7.4 H* Troponin I 5.27 H* D B-Natriuretic Peptide Total Protein 6.7 Albumin 2.9 L Urine Color Urine Clarity Urine pH Ur Specific [place] Urine Protein Urine Glucose (UA) Urine Ketones Urine Occult Blood Urine Nitrate Urine Bilirubin Urine Urobilinogen Ur Leukocyte Esterase Urine RBC Urine WBC Ur Squamous Epith Cells Micro UA Comment Ur Microscopic Review Urine Culture Comments 02/01/18 02/01/18 02/01/18 04:47 08:13 11:32 WBC RBC Hgb Hct MCV MCH MCHC RDW Plt Count MPV Prelim Diff (Auto) Neut % (Auto) Lymph % (Auto) Rhea % (Auto) Eos % (Auto) Baso % (Auto) Neut # (Auto) Lymph # (Auto) Rhea # (Auto) Eos # (Auto) Baso # (Auto) WBC Differential Diff Scan Differential Comment Platelet Estimate Platelet Morphology RBC Morphology PT INR APTT 41.7 H D Sodium Potassium Chloride Carbon Dioxide Anion Gap BUN Creatinine Estimated GFR POC Glucose 350 H 377 H Random Glucose Hemoglobin A1c Lactic Acid Calcium Prot Corrected Calcium Total Bilirubin AST ALT Alkaline Phosphatase Total Creatine Kinase CK-MB (CK-2) CK-MB (CK-2) % Troponin I B-Natriuretic Peptide Total Protein Albumin Urine Color Urine Clarity Urine pH Ur Specific [place] Urine Protein Urine Glucose (UA) Urine Ketones Urine Occult Blood Urine Nitrate Urine Bilirubin Urine Urobilinogen Ur Leukocyte Esterase Urine RBC Urine WBC Ur Squamous Epith Cells Micro UA Comment Ur Microscopic Review Urine Culture Comments 02/01/18 11:55 WBC RBC Hgb Hct MCV MCH MCHC RDW Plt Count MPV Prelim Diff (Auto) Neut % (Auto) Lymph % (Auto) Rhea % (Auto) Eos % (Auto) Baso % (Auto) Neut # (Auto) Lymph # (Auto) Rhea # (Auto) Eos # (Auto) Baso # (Auto) WBC Differential Diff Scan Differential Comment Platelet Estimate Platelet Morphology RBC Morphology PT INR APTT 43.9 H Sodium Potassium Chloride Carbon Dioxide Anion Gap BUN Creatinine Estimated GFR POC Glucose Random Glucose Hemoglobin A1c Lactic Acid Calcium Prot Corrected Calcium Total Bilirubin AST ALT Alkaline Phosphatase Total Creatine Kinase CK-MB (CK-2) CK-MB (CK-2) % Troponin I B-Natriuretic Peptide Total Protein Albumin Urine Color Urine Clarity Urine pH Ur Specific [place] Urine Protein Urine Glucose (UA) Urine Ketones Urine Occult Blood Urine Nitrate Urine Bilirubin Urine Urobilinogen Ur Leukocyte Esterase Urine RBC Urine WBC Ur Squamous Epith Cells Micro UA Comment Ur Microscopic Review Urine Culture Comments Result Diagrams: 02/07/18 04:47 02/07/18 04:47 Microbiology: Microbiology 01/31/18 21:38 Aerobic Blood Culture - Preliminary Blood - Peripheral No growth in 1 day Anaerobic Blood Culture - Preliminary No growth in 1 day 01/31/18 21:43 Aerobic Blood Culture - Preliminary Blood - Peripheral No growth in 1 day Anaerobic Blood Culture - Preliminary No growth in 1 day 01/31/18 22:30 Influenza Types A,B Antigen - Final Nasal Wash Negative for FLU A and B antigen Infection due to influenza A or B cannot be ruled out since the antigen present in the sample may be below the detection limit of the test. Imaging: Chest X-Ray 01/31/18 02:15 CONCLUSION: No significant change mild left base atelectasis. Otherwise within normal limits. Patient/Family Conference Present at Family Conference: Spoke with her granddaughter, Treva, who is the healthcare surrogate and she verifies that it is the opinion of the family that she should remain a full code. The granddaughter states that she has medical knowledge and feels qualified to make that decision based on her discussions with her grandmother. She further states that she does wish to have cardiac catheterization done because she feels the risks outweigh the benefits. Reviewed Dr. Johnson's note with her and as her grandmother's renal function has improved since admission, she feels that a cardiac cath would be a reasonable alternative rather than allowing the patient to progress to full STEMI. She is also expressing concern regarding fevers of unknown origin. In spite of 2 clean urine specimen is within 3 days, she is insisting that her grandmother be placed on antibiotics because the only time she is confused is when she has a UTI. She has had faxed over from the primary care office a history and physical to include allergies which are far more extensive than listed in EMR. That is being reviewed by the nursing staff to update allergies. The granddaughter would also like to be informed which antibiotic is being prescribed. As she lives in [place], there is a 3-hour difference in time, however always has her cell phone with her and welcomes communication at any time with voicemails being left if she is unable to cherry picker operator at that moment. . Family Conference Location: Telephone Issues Discussed: * Palliative care role, purpose, approach * Additional medical, psychosocial, and spiritual history * Patients general health, functional status, and cognitive changes in the months leading up to the current hospitalization * Patient/family understanding of the current medical problems * Patient/family understanding of prognosis * Patients goals of care as best understood from advance directives and/or conversations and/or values * Current medical treatment options and benefits/burdens of those options * Likely scenarios comparing ongoing aggressive care with a transition to comfort measures only * Questions answered to the best of my ability * Palliative care contact information provided Assessment and Plan Pertinent Non-Medical Issues: Psychosocial: She was born in [facility] and lived there most of her life. She was however her passed in 1983. She moved to [place] in the early s. 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 She has 1 son. 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 Legal: Living will on the chart with healthcare surrogate. Ethical issues impacting care: None noted. . Important Contacts: Granddaughter: Treva Arvizu Son: Vicky Arvizu . Prognosis: Her prognosis is guarded. She is of advanced age at 87 and showing signs of decline. In addition to renal insufficiency she has multiple cardiac risk factors to include hypertension, hyperlipidemia, obesity with BMI 30.8 kg/m, diabetes with a hemoglobin A1c 7.8 and evidence of at minimum a non-STEMI. Cardiac catheterization per the porcelain enamel installer report would be a high risk/"heroic " procedure. She is also febrile with no known source of infection. Urinalysis has been negative on 01/29 and 01/31, influenza is negative and blood cultures are negative times 1 day. Empiric antibiotic coverage is being initiated as cultures are pending. She is at increased risk of continued hospitalizations, complications and decline. . Code Status: Full Code Plan: PLAN: Legal decision maker: Patient at this time is confused and not capacitated for decision-making. It is uncertain if she will regain capacity. Living will and healthcare surrogate on the chart name her granddaughter Treva and Treva's brother Gonzalez as joint healthcare surrogate's. Gonzalez is a member of the [employer] currently regarding the president and unavailable. Goals: Aggressive CODE STATUS: FULL CODE SYMPTOMS: * Chest pain: Continues to have intermittent chest pain in spite of aspirin, Lipitor, Plavix, heparin drip, morphine, nitroglycerin paste. Troponin is elevated greater than 5. While her renal function has improved since admission , the combination of age, comorbidities and fever of unknown origin make cardiac catheterization and increased risk. Family is willing to proceed with catheterization in spite of the risks. I have spoken with the nurse on [facility] to contact the porcelain enamel installer and inform him that the patient's family would like to discuss this further. Pending that discussion and decision. No further recommendations. * Anxiety: Currently somewhat lethargic. Has Xanax available and took her last dose 3 hours prior to my assessment. Xanax available every 8 hours as needed. SUMMARY This is an 87-year-old female with multiple cardiac risk factors, admitted with an NSTEMI, with concern for continued cardiovascular compromise based on continued intermittent chest pain and elevated troponin. Family is requesting aggressive management to include cardiac catheterization, after discussion of the risks. She also has a fever of unknown origin cultures are pending. She is at risk for further compromise, complications and decline. Palliative care will continue to follow the patient during hospital course as condition evolves, to assist patient/decision-maker with understanding of their medical conditions, weighing benefits/burdens of treatment options, for clarification of goals of treatment. Additionally will assist with any symptoms of palliative concern. . Appreciation Thank you for the opportunity to participate in the care of Olimpia Arvizu. Attestation Attestation: To help prompt me to consider important information that might be impacting today's encounter and assessment, information from prior notes written by myself or my colleagues may have been "brought forward" into today's note. My signature on this note, however, is an attestation that I personally performed the exam, history, and/or decision-making noted today, and, unless otherwise indicated, the interactions with patient, family, and staff as well as the review of records all occurred today. I also attest that the listed assessment and stated plan reflect my best clinical judgment today based on the combination of historical information, prior notes, and today's exam/ interactions. When time spent is documented, it refers only to time spent today by the signer, or if indicated, combined time spent today by collaborating physician/nurse practitioner. .
--- NOTE | 2018-02-01 20:49 | ECG ---
Date Performed: 01/31/2018 Time Performed: 23:58:30 PTAGE: 87 years EKG: CONSIDER ACUTE ST ELEVATION MT Sinus tachycardia ANTEROSEPTAL INFARCT POSSIBLY ACU TE Abnormal ECG PREVIOUS TRACING : 01/31/2018 08.46 DOCTOR: Shahab Johnson Interpretating Date/Time 02/01/2018 20:48:53
--- NOTE | 2018-02-01 20:51 | ECG ---
Date Performed: 02/01/2018 Time Performed: 02:33:30 PTAGE: 87 years EKG: Sinus tachycardia with PAC(s) anteroseptal myocardial infarct, possibly acute Abnormal ECG PREVIOUS TRACING : 01/31/2018 23.58 Since the previous tracing, no significant change noted DOCTOR: Shahab Johnson Interpretating Date/Time 02/01/2018 20:49:34
[2018-02-01] MEDS ORDERED: Insulin Glargine Inj 1,000 UNITS/10 ML Vial SQ SCH (21:00)
[2018-02-02] MEDS: ALPRAZolam 0.5 MG Tablet PO PRN (05:26)
[2018-02-02] MEDS: Sod Chloride 0.9% Inj 1,000 ML IV.CONT SCH (05:28)
[2018-02-02] MEDS ORDERED: Midazolam Inj 5 MG/ML 1 ML Vial ONE (06:54)
--- NOTE | 2018-02-02 06:55 | P.PNADD ---
Addendum to Inpatient Note Reason for Addendum: Additional Documentation Additional information: Responded to a [facility] about 0635 this morning. Patient is in respiratory distress and utilizing accessory muscles for breathing. Lung sounds are congested and Lasix 40 mg IV stat ordered along with stat ABGs and stat chest x- ray. Ordered for patient to be transferred to intensive surgical care. Upon review of ABGs in which pH is 7.155, PCO2 56.7, PCO2 83.1 on 100% nonrebreather , I consulted the general intern and talked with Dr. Palma via telephone who was kind enough to accept the patient in transfer.
--- NOTE | 2018-02-02 06:58 | XR ---
EXAM DATE: 02/02/2018 6:52 AM EDT AGE/SEX: 87 years / Female INDICATIONS: Shortness of breath. CLINICAL DATA: This is the patient's subsequent encounter. Patient reports that signs and symptoms h ave been present for 3 days and indicates a pain score of 0/10. MEDICAL/SURGICAL HISTORY: Hypertension. Diabetes mellitus type II. Carcinoma, rectal. Coronar y artery stent. COMPARISON: [facility], CHEST 1V SINGLE AP, 01/31/2018. . FINDINGS: There is moderate diffuse bilateral interstitial and alveolar disease. No significant effusion. Cardi ac contours are grossly stable. CONCLUSION: Worsening aeration Electronically signed by: Mitchell Fox MD 02/02/2018 6:57 AM EDT
[2018-02-02 07:03] LABS: ABG Base Excess -8.2 mmol/L (-2-2); ABG PCO2 57 mmHg (38-42); ABG PO2 83 mmHG (61-120)
[2018-02-02 07:51] LABS: Hematocrit 33.9 % (35.0-46.0); Hemoglobin 11.3 gm/dL (11.6-15.3); Mean Corpuscular HGB Conc 33.4 % (32.0-36.0); Mean Corpuscular Hemoglobin 29.3 pg (27.0-34.0); Mean Corpuscular Volume 87.8 fL (80.0-100.0); Mean Platelet Volume 11.2 fL (7.0-11.0); Platelet Count 143 th/mm3 (150-450); Red Blood Count 3.87 mil/mm3 (4.00-5.30); Red Cell Distribution Width 16.3 % (11.6-17.2); White Blood Count 12.5 th/mm3 (4.0-11.0)
[2018-02-02 07:54] LABS: Calcium 8.5 mg/dL (8.5-10.1); Carbon Dioxide 24.1 meq/L (21.0-32.0); Potassium 4.6 meq/L (3.5-5.1)
[2018-02-02] MEDS: Metoprolol Tartrate 25 MG Tablet PO SCH ×3 (08:41→18:35)
[2018-02-02] MEDS: Sodium Chloride 0.9% 2 ML Flush BID IV.FLUSH SCH ×2 (08:41→21:47)
[2018-02-02] MEDS: Chlorhexidine 0.12% Oral Kit 15 ML UDC OROPHARYNG SCH ×2 (08:41→21:48)
--- NOTE | 2018-02-02 08:42 | XR ---
EXAM DATE: 02/02/2018 8:34 AM EDT AGE/SEX: 87 years / Female INDICATIONS: S/P ET Tube Placement. CLINICAL DATA: This is the patient's subsequent encounter. Patient reports that signs and symptoms h ave been present for 3 days and indicates a pain score of Nonresponsive. MEDICAL/SURGICAL HISTORY: . Hypertension. Diabetes mellitus type II. Carcinoma, rectal . Coron [place] artery stent. COMPARISON: [facility] [place], CHEST 1V SINGLE AP, 02/02/2018. . FINDINGS: Single AP view of the chest. Endotracheal tube is in place with the tip 1.8 cm above the magi. Naso gastric tube is in place. The tip is not visualized as it courses below the [id number] of the radi ograph. Hazy opacity in the right lung is slightly increased. Patchy opacity at the left lung base is partially visualized. No evidence of pneumothorax. Cardiomediastinal silhouette within normal limits . CONCLUSION: 1. Endotracheal tube and nasogastric tube in place. 2. Slight increase in hazy opacity at the right lung base. Patchy opacity left lung base partially v isualized. Electronically signed by: Deuce Correa MD 02/02/2018 8:41 AM EDT
[2018-02-02] MEDS: Propofol 1000 mg/100 ml Inj 1,000 MG/100 ML BOTTLE IV.CONT PRN ×2 (08:43→21:48)
[2018-02-02 08:55] LABS: ABG Base Excess -5.4 mmol/L (-2-2); ABG PCO2 49 mmHg (38-42); ABG PO2 68 mmHg (61-120)
[2018-02-02] MEDS ORDERED: Famotidine PF Inj 20 MG/2 ML Vial IV.PUSH SCH (09:00)
[2018-02-02] MEDS: Heparin Drip 25,000 UNIT/250 ML BAG IV.CONT PRN (09:18)
[2018-02-02] MEDS ORDERED: Dextrose 50% in Water 50 ML Vial IV.PUSH PRN ×2 (09:20→13:53)
--- NOTE | 2018-02-02 09:55 | P.CONCC ---
History of Present Illness Service: Critical care medicine Consult date: 02/02/18 Reason for Consult: Acute hypoxemic respiratory failure, pulmonary edema Primary Care Provider: Pavithra Carbone MD Chief Complaint: Respiratory distress History of Present Illness: I have been asked to see emergently this 79-year-old female with a history of diabetes, anxiety, depression, history of rectal cancer in remission, CAD status post PCI, recent admission on 01/28 for non-ST elevation [place] discharged on 01/29. Presented 01/31 with acute onset of dull pressure-like nonradiating chest pain resolved with aspirin and sublingual nitroglycerin. On arrival to the ICU she is clearly markedly labored respiratory effort and hypoxemia despite a nonrebreathing mask. She required intubation immediately upon arrival to get oxygen saturation greater than 90% and mechanical and ventilation with elevated end expiratory pressure was required to maintain adequate oxygenation. She appears to be undergoing a stuttering infarct and remains on a heparin drip. Fever on unknown origin, worsening lung infiltrates however. Start abx, adjust per ID service. Review of Systems Unable to obtain as patient is encephalopathic, no family available. [facility] - History History Provided By: Patient - Medical History Medical History: Medical History (Last Reviewed 01/31/18 @ 06:02 by Parmjit Rivers MD) Chest pain Diabetes History of hysterectomy Hyperlipidemia Hypertension Rectal cancer - Surgical History Surgical History: Surgical History (Last Reviewed 01/31/18 @ 06:02 by Parmjit Rivers MD) H/O heart artery stent History of tonsillectomy Hx of appendectomy - Family History Family History: Family History (Last Reviewed 01/31/18 @ 06:02 by Parmjit Rivers MD) Other Family history of hypertension - Tobacco History Second Hand Smoke Exposure: No Smoking Status: Former smoker Tobacco Type: Cigarettes - Alcohol History How Often Do You Have a Drink Containing Alcohol: Monthly or less - Substance Use History Substance History: No History of Abuse - Immunization History Tetanus Immunization: Unsure Medications and Allergies Active Medications: Active Medications Acetaminophen (Tylenol) 500 mg PO Q4H PRN PRN Reason: FEVER > 100.4 F Last Admin: 02/01/18 18:45 Dose: 500 mg Al Hydroxide/Mg Hydroxide (Milk Of Magnesia Liq) 30 ml PO Q12H PRN PRN Reason: Mild Constipation Alprazolam (Xanax) 0.5 mg PO Q8H PRN PRN Reason: ANXIETY Last Admin: 02/02/18 05:26 Dose: 0.5 mg Aspirin (Ecotrin) 81 mg PO DAILY [facility] Last Admin: 02/02/18 08:41 Dose: 81 mg Atorvastatin Calcium (Lipitor) 40 mg PO HS [facility] Last Admin: 02/01/18 20:30 Dose: 40 mg Bisacodyl (Dulcolax Supp) 10 mg RECTAL DAILY PRN PRN Reason: SEVERE CONSITIPATION Chlorhexidine Gluconate (Peridex 0.12% Oral Kit) 15 ml OROPHARYNG BID@0800, 2000 [facility] Last Admin: 02/02/18 08:41 Dose: 15 ml Clopidogrel Bisulfate (Plavix) 75 mg PO DAILY [facility] Last Admin: 02/02/18 08:40 Dose: 75 mg Dextrose (D50w Vial) 50 ml IV.PUSH UNSCH PRN PRN Reason: PER HYPOGLYCEMIA PROTOCOL Dextrose (D50w Vial) 50 ml IV.PUSH UNSCH PRN PRN Reason: PER HYPOGLYCEMIA PROTOCOL Famotidine (Pepcid Pf Inj) 20 mg IV.PUSH Q12HR [facility] Last Admin: 02/02/18 08:41 Dose: 20 mg Glucagon (Glucagon Inj) 1 mg OTHER PRN PRN PRN Reason: for Hypoglycemia Protocol Heparin Sodium (Porcine) (Heparin Inj) 5,000 units IV.PUSH UNSCH PRN PRN Reason: aPTT < 25 Heparin Sodium (Porcine) (Heparin Inj) 2,500 units IV.PUSH UNSCH PRN PRN Reason: aPTT 25-39 Last Admin: 01/31/18 20:37 Dose: 2,500 units Heparin Sodium/Dextrose (Heparin/D5w 25,000 U/250 Ml) 25,000 unit in 250 mls @ 0 mls/hr IV.CONT TITRATE PRN; Protocol PRN Reason: Per Protocol Last Admin: 02/02/18 09:18 Dose: 1,000 units/hr, 10 mls/hr Sodium Chloride (Ns Inj) 1,000 mls @ 60 mls/hr IV.CONT .[id number] [facility] Last Admin: 02/02/18 05:28 Dose: 60 mls/hr Nitroglycerin/Dextrose (Nitroglycerin Drip Premix) 50 mg in 250 mls @ 1.5 mls/ hr IV.CONT TITRATE PRN; Protocol PRN Reason: Per Protocol Last Titration: 02/01/18 18:42 Dose: 10 mcg/min, 3 mls/hr Propofol (Diprivan 1000 Mg/100 Ml Inj) 1,000 mg in 100 mls @ 2.55 mls/hr IV.CONT TITRATE PRN; Protocol PRN Reason: Per Protocol Last Admin: 02/02/18 08:43 Dose: 5 mcg/kg/min, 2.55 mls/hr Insulin Aspart (Novolog Insulin Correctional Sugar Inj) 0 unit SQ Q6HR [facility]; Protocol Insulin Detemir (Levemir Inj) 6 unit SQ BID [facility] Lactulose (Lactulose Liq) 30 ml PO DAILY PRN PRN Reason: SEVERE CONSITIPATION Metoprolol Tartrate (Lopressor) 25 mg PO TID [facility] Last Admin: 02/02/18 08:41 Dose: 25 mg Miscellaneous (Pill Splitter) 1 each OTHER UNSCH PRN PRN Reason: SEE LABEL COMMENTS Miscellaneous Medication () 1 each OROPHARYNG 0000,0400,1200,1600 [facility] Morphine Sulfate (Morphine Inj) 2 mg IV.PUSH Q20M PRN PRN Reason: PAIN 1-10 Last Admin: 02/01/18 02:53 Dose: 2 mg Nitroglycerin (Nitro-Bid 2% Oint) 0.5 inch TOPICAL Q6HR [facility] Last Admin: 02/02/18 05:19 Dose: Not Given Sennosides (Senokot) 17.2 mg PO Q12H PRN PRN Reason: Moderate Constipation Sodium Chloride (Ns Flush) 2 ml IV.FLUSH BID [facility] Last Admin: 02/02/18 08:41 Dose: 2 ml Sodium Chloride (Ns Flush) 2 ml IV.FLUSH PRN PRN PRN Reason: FLUSH AFTER USING IV ACCESS Tramadol HCl (Ultram) 50 mg PO Q6H PRN PRN Reason: Pain 1-10 Last Admin: 02/02/18 05:25 Dose: 50 mg Allergies Allergy/AdvReac Type Severity Reaction Status Date / Time penicillin G Allergy Severe UNKNOWN Verified 01/31/18 02:06 Sulfa (Sulfonamide Allergy Severe UNKNOWN Verified 01/31/18 02:06 Antibiotics) Home Medications Medication Instructions Recorded Confirmed Type alprazolam 0.5 mg PO Q8HR PRN 01/31/18 01/31/18 History tramadol 50 mg PO Q6H PRN 01/31/18 01/31/18 History Physical Exam Vital signs: Vital Signs 02/01/18 10:00 02/01/18 11:00 02/01/18 11:32 Temperature 99.8 F H Pulse Rate 102 H 68 83 Respiratory Rate 18 Blood Pressure 92/52 L Pulse Oximetry 92 L 02/01/18 12:00 02/01/18 12:52 02/01/18 13:00 Temperature 100.2 F H Pulse Rate 78 75 68 Respiratory Rate 18 Blood Pressure 96/53 L Pulse Oximetry 95 02/01/18 14:00 02/01/18 15:00 02/01/18 15:13 Temperature 100.3 F H Pulse Rate 86 90 83 Respiratory Rate 18 Blood Pressure 113/53 L Pulse Oximetry 96 02/01/18 16:00 02/01/18 17:00 02/01/18 17:56 Temperature Pulse Rate 92 H 90 94 H Respiratory Rate 17 Blood Pressure 118/79 Pulse Oximetry 96 02/01/18 18:00 02/01/18 18:33 02/01/18 19:00 Temperature 100.6 F H Pulse Rate 94 H 96 H 72 Respiratory Rate 17 Blood Pressure 134/73 Pulse Oximetry 92 L 02/01/18 20:00 02/01/18 21:00 02/01/18 22:00 Temperature 99.7 F H Pulse Rate 71 77 75 Respiratory Rate 18 Blood Pressure 100/71 Pulse Oximetry 94 L 02/01/18 23:00 02/02/18 00:00 02/02/18 01:00 Temperature 98.9 F Pulse Rate 76 77 76 Respiratory Rate 18 Blood Pressure 106/57 L Pulse Oximetry 96 02/02/18 02:00 02/02/18 03:00 02/02/18 04:00 Temperature 99 F Pulse Rate 81 89 99 H Respiratory Rate 18 Blood Pressure 139/75 Pulse Oximetry 95 02/02/18 05:00 02/02/18 06:00 02/02/18 06:20 Temperature Pulse Rate 92 H 100 H Respiratory Rate Blood Pressure Pulse Oximetry 94 L 02/02/18 07:43 Temperature Pulse Rate Respiratory Rate 16 Blood Pressure Pulse Oximetry 100 Intake & Output 02/01/18 02/02/18 02/02/18 18:59 06:59 18:59 Intake Total 1580 / 1580 1480 / 1480 250 / 250 Output Total 1000 / 1000 600 / 600 Balance 580 / 580 880 / 880 250 / 250 Weight 85 kg Intake: IV 1100 / 1100 1000 / 1000 250 / 250 Heparin/D5W 25,000 U/250 mL 25, 250 / 250 000 unit In 250 ml @ Per Protocol IV.CONT TITRATE PRN Rx #:[id number] NS Inj 1,000 ML @ 60 mls/hr IV. 1000 / 1000 1000 / 1000 CONT .[id number] TATYANA Rx#:[id number] KCl 20 mEq Premix Inj 20 meq In 100 / 100 100 ml @ 50 mls/hr IV.SIG Q2H TATYANA Rx#:[id number] Oral 480 / 480 480 / 480 Output: Urine 1000 / 1000 600 / 600 Other: # Bowel Movements 0 Narrative: General: Elderly woman in severe respiratory distress, agitated, confused HEENT: Extraocular movements are intact, frothy secretions in mouth Cardiovascular: Tachycardia, unable to hear heart tones over the sound of wheezing and bronchospasm Respiratory: Diffuse bilateral wheezes and crackles, acceptable bilateral air movement, labored respiration, tachypnea Abdomen: Soft, nontender, nondistended, normal bowel sounds, no guarding Extremities: Tepid, mottled, no edema 2+ distal pulses in bilateral upper and lower extremities Neuro: Confused, agitated, moving 4 limbs with strength. Assessment and Plan - Problem List (1) Acute hypoxemic respiratory failure Code(s): J96.01 - Acute respiratory failure with hypoxia Status: Acute (2) Pulmonary edema cardiac cause Code(s): I50.1 - Left ventricular failure, unspecified Status: Acute (3) Acute myocardial infarction Code(s): I21.9 - Acute myocardial infarction, unspecified Status: Acute (4) Acute kidney injury Code(s): N17.9 - Acute kidney failure, unspecified Status: Acute (5) Type 2 diabetes mellitus Code(s): E11.9 - Type 2 diabetes mellitus without complications Status: Chronic - Assessment and Plan Plan: Plan: Acute hypoxemic respiratory failure -Mechanical ventilation with elevated end expiratory pressure -Diuretics is tolerated -Propofol sedation Acute myocardial infarction -Continue heparin drip and antiplatelet therapy -Attempt to get some direction from the family as to care goals Acute kidney injury -Avoid nephrotoxins -Attempt to gingerly diuresis without exacerbating renal injury Diabetes mellitus, poorly controlled -Initiate Levemir twice daily -Medium correction sliding scale insulin protocol Prophylaxis -Heparin drip -Pepcid Overall impression: This woman is critically ill with pulmonary edema of cardiac etiology. She has required intubation and mechanical ventilation with elevated airway pressures because of the severe oxygen diffusion impairment. With improved oxygenation hopefully we can get better heart rate control; she undoubtedly has some element diastolic dysfunction and her age. Considering all aspects of her present physiological state her prognosis is poor and her risk of early is high. I do not think anything from an interventional standpoint will alter her outcome at this point but I will defer to the cardiology service to discuss the limited options with the family. Critical care time 45 minutes aside from invasive procedures.
[2018-02-02] MEDS ORDERED: Insulin Detemir Inj 1,000 UNIT/10 ML Vial SQ SCH (10:00)
[2018-02-02] MEDS ORDERED: Midazolam Inj 5 MG/ML 1 ML Vial IV.PUSH ONE (11:00)
--- NOTE | 2018-02-02 11:09 | P.PN ---
Subjective Interval history: Events noted, pt now intubated/sedated after going into respiratory failure last night. Physical Exam Vital signs: Vital Signs 02/01/18 11:32 02/01/18 12:00 02/01/18 12:52 Temperature 99.8 F H 100.2 F H Pulse Rate 83 78 75 Respiratory Rate 18 18 Blood Pressure 92/52 L 96/53 L Pulse Oximetry 92 L 95 02/01/18 13:00 02/01/18 14:00 02/01/18 15:00 Temperature Pulse Rate 68 86 90 Respiratory Rate Blood Pressure Pulse Oximetry 02/01/18 15:13 02/01/18 16:00 02/01/18 17:00 Temperature 100.3 F H Pulse Rate 83 92 H 90 Respiratory Rate 18 Blood Pressure 113/53 L Pulse Oximetry 96 02/01/18 17:56 02/01/18 18:00 02/01/18 18:33 Temperature 100.6 F H Pulse Rate 94 H 94 H 96 H Respiratory Rate 17 17 Blood Pressure 118/79 134/73 Pulse Oximetry 96 92 L 02/01/18 19:00 02/01/18 20:00 02/01/18 21:00 Temperature 99.7 F H Pulse Rate 72 71 77 Respiratory Rate 18 Blood Pressure 100/71 Pulse Oximetry 94 L 02/01/18 22:00 02/01/18 23:00 02/02/18 00:00 Temperature 98.9 F Pulse Rate 75 76 77 Respiratory Rate 18 Blood Pressure 106/57 L Pulse Oximetry 96 02/02/18 01:00 02/02/18 02:00 02/02/18 03:00 Temperature Pulse Rate 76 81 89 Respiratory Rate Blood Pressure Pulse Oximetry 02/02/18 04:00 02/02/18 05:00 02/02/18 06:00 Temperature 99 F Pulse Rate 99 H 92 H 100 H Respiratory Rate 18 Blood Pressure 139/75 Pulse Oximetry 95 02/02/18 06:20 02/02/18 07:43 02/02/18 10:07 Temperature Pulse Rate Respiratory Rate 16 16 Blood Pressure Pulse Oximetry 94 L 100 100 Intake & Output 02/01/18 02/02/18 02/02/18 18:59 06:59 18:59 Intake Total 1580 / 1580 1480 / 1480 250 / 250 Output Total 1000 / 1000 600 / 600 Balance 580 / 580 880 / 880 250 / 250 Weight 85 kg Intake: IV 1100 / 1100 1000 / 1000 250 / 250 Heparin/D5W 25,000 U/250 mL 25, 250 / 250 000 unit In 250 ml @ Per Protocol IV.CONT TITRATE PRN Rx #:[id number] NS Inj 1,000 ML @ 60 mls/hr IV. 1000 / 1000 1000 / 1000 CONT .[id number] [facility] Rx#:[id number] KCl 20 mEq Premix Inj 20 meq In 100 / 100 100 ml @ 50 mls/hr IV.SIG Q2H [facility] Rx#:[id number] Oral 480 / 480 480 / 480 Output: Urine 1000 / 1000 600 / 600 Other: # Bowel Movements 0 - Constitutional somnolent - Routine HEENT Exam Head: Present: normocephalic Eye: Present: EOMI ENT: Present: mucous membranes moist - Routine Neck Exam Absent: JVD - Routine Respiratory Exam Present: distant breath sounds - Routine Cardiovascular Exam Present: RRR - Routine Abdominal Exam Present: soft - Routine Extremities Exam Absent: edema Results - Labs CBC & Chem 7: 02/02/18 05:20 02/02/18 05:20 Laboratory Results - last 24 hr 02/01/18 02/01/18 02/01/18 11:32 11:55 17:35 WBC RBC Hgb Hct MCV MCH MCHC RDW Plt Count MPV Prelim Diff (Auto) Differential Comment APTT 43.9 H Puncture Site Patient Temperature O2 Saturation ABG pH ABG pCO2 ABG pO2 ABG HCO3 ABG O2 Content ABG Base Excess ABG Methemoglobin [place] Test Hemoglobin Carboxyhemoglobin O2 Delivery Device Liter Flow Vent Setting Inspired O2 Critical Value Sodium Potassium Chloride Carbon Dioxide Anion Gap BUN Creatinine Estimated GFR POC Glucose 377 H 298 H Random Glucose Calcium 02/01/18 02/02/18 02/02/18 20:37 05:20 05:20 WBC 12.5 H RBC 3.87 L Hgb 11.3 L Hct 33.9 L MCV 87.8 MCH 29.3 MCHC 33.4 RDW 16.3 Plt Count 143 L MPV 11.2 H Prelim Diff (Auto) Manual diff required Differential Comment . APTT Puncture Site Patient Temperature O2 Saturation ABG pH ABG pCO2 ABG pO2 ABG HCO3 ABG O2 Content ABG Base Excess ABG Methemoglobin [place] Test Hemoglobin Carboxyhemoglobin O2 Delivery Device Liter Flow Vent Setting Inspired O2 Critical Value Sodium 137 Potassium 4.6 Chloride 104 Carbon Dioxide 24.1 Anion Gap 9 BUN 29 H Creatinine 1.27 H Estimated GFR 40 L POC Glucose 260 H Random Glucose 207 H Calcium 8.5 02/02/18 02/02/18 02/02/18 05:20 06:27 06:30 WBC RBC Hgb Hct MCV MCH MCHC RDW Plt Count MPV Prelim Diff (Auto) Differential Comment APTT 38.5 H Puncture Site Right radial Patient Temperature 98.6 O2 Saturation 91 ABG pH 7.16 L* ABG pCO2 57 H* ABG pO2 83 ABG HCO3 19 L ABG O2 Content 16.1 ABG Base Excess -8.2 L ABG Methemoglobin 1.4 [place] Test Present Hemoglobin 12.6 Carboxyhemoglobin 0.9 O2 Delivery Device Non-rebreathing mask Liter Flow 15.00 Vent Setting Inspired O2 100 Critical Value Yes Sodium Potassium Chloride Carbon Dioxide Anion Gap BUN Creatinine Estimated GFR POC Glucose 334 H Random Glucose Calcium 02/02/18 02/02/18 09:26 11:36 WBC RBC Hgb Hct MCV MCH MCHC RDW Plt Count MPV Prelim Diff (Auto) Differential Comment APTT Puncture Site Right radial Patient Temperature 98.6 O2 Saturation 89 L* ABG pH 7.25 L* ABG pCO2 49 H ABG pO2 68 ABG HCO3 21 L ABG O2 Content 15.9 ABG Base Excess -5.4 L ABG Methemoglobin 1.1 [place] Test Present Hemoglobin 12.7 Carboxyhemoglobin 1.3 O2 Delivery Device Vent Liter Flow Vent Setting See comments Inspired O2 100 Critical Value Yes Sodium Potassium Chloride Carbon Dioxide Anion Gap BUN Creatinine Estimated GFR POC Glucose 365 H Random Glucose Calcium Microbiology 01/31/18 21:38 Blood - Peripheral Aerobic Blood Culture - Preliminary No growth in 2 days 01/31/18 21:38 Blood - Peripheral Anaerobic Blood Culture - Preliminary No growth in 2 days 01/31/18 21:43 Blood - Peripheral Aerobic Blood Culture - Preliminary No growth in 2 days 01/31/18 21:43 Blood - Peripheral Anaerobic Blood Culture - Preliminary No growth in 2 days - Imaging Impressions Chest X-Ray 02/02/18 00:00 CONCLUSION: Worsening aeration Chest X-Ray 02/02/18 00:00 CONCLUSION: 1. Endotracheal tube and nasogastric tube in place. 2. Slight increase in hazy opacity at the right lung base. Patchy opacity left lung base partially visualized. Assessment and Plan - Assessment (1) Frail elderly Code(s): R54 - Age-related physical debility Status: Acute (2) Acute myocardial infarction Code(s): I21.9 - Acute myocardial infarction, unspecified Status: Acute Plan: Plan had been for cath sunday but given significant decline, advanced age, dementia, would recommend palliative care at this point; Dr. Johnson will return Sunday for final decision in this regard. Otherwise continue supportive medical mgt. (3) Febrile illness Code(s): R50.9 - Fever, unspecified Status: Acute (4) Acute kidney injury Code(s): N17.9 - Acute kidney failure, unspecified Status: Acute
[2018-02-02 11:11] LABS: Eosinophils 2 % (0-4); Lymphocytes 6 % (9-44); Monocytes 7 % (0-8)
[2018-02-02 11:12] LABS: Toxic Granulation 1+
[2018-02-02] MEDS ORDERED: Insulin NovoLOG Aspart Correctional Sugar Inj SQ SCH (12:00)
[2018-02-02 12:05] LABS: Amorphous Sediment,Urine Rare /hpf; Bacteria,Urine Many /hpf; Bilirubin,Urine Negative (Negative); Clarity,Urine Cloudy (Clear); Color,Urine Yellow (Yellw/Straw); Glucose,Urine (UA) Negative (Negative); Leukocyte Esterase,Urine Large (Negative); Mucus,Urine Few /lpf (Occasional); Nitrite,Urine Positive (Negative); Specific Gravity,Urine 1.014 (1.002-1.035)
[2018-02-02] MEDS ORDERED: Vancomycin Consult Pharmacy OTHER PRN (12:26)
--- NOTE | 2018-02-02 13:26 | P.CONID ---
History of Present Illness Service: ID Consult date: 02/02/18 Requesting Physician: Dania Blanchard Reason for Consult: fever Primary Care Provider: Pavithra Carbone MD Chief Complaint: Respiratory distress History of Present Illness: Pt is unable to prov julio c history 2/2 mental status Her son is at bedside and provides some history but he is not residing with her and his knowledge on her medical issues is limited 87 yo female lives by herself recent hosp[italisation discharged came back 2 days ago w/u showed NSTEMI Initially ok but this am developped resp distress, was trasferred to ICU and intubated On propofol BP slightly low but not on pressors GOod urine output not much resp secretions son reports 3-4 days of diarrhea, abdominsal pain Pt presented febrile with up to 102 F High WBC with 12 K Her UA was markedly abnormal with + nitrate, prominenm,t pyurias, clx is P + NG to suction with gastric out put of nearly 200 cc Pt is on aszithromycin, azactam, vancomycin Flu antigen negative BC negative @ 1 day Her son is unaware of any abx allergies, but on med records PCN and sulfa are listed Review of Systems unobtainable due to endotracheal tube, unobtainable due to mental status PMFSH - History History Provided By: Patient - Medical History Medical History: Medical History (Last Reviewed 02/02/18 @ 13:38 by Veronica Ro MD) Chest pain Diabetes History of hysterectomy Hyperlipidemia Hypertension Rectal cancer - Surgical History Surgical History: Surgical History (Last Reviewed 02/02/18 @ 13:38 by Veronica Ro MD) H/O heart artery stent History of tonsillectomy Hx of appendectomy - Family History Family History: Family History (Last Reviewed 01/31/18 @ 06:02 by Parmjit Rivers MD) Other Family history of hypertension - Social History I have reviewed the patient's Social History: Yes - Tobacco History Second Hand Smoke Exposure: No Smoking Status: Former smoker Tobacco Type: Cigarettes - Alcohol History How Often Do You Have a Drink Containing Alcohol: Monthly or less - Substance Use History Substance History: No History of Abuse - Immunization History Tetanus Immunization: Unsure Medications and Allergies Active Medications: Active Medications Acetaminophen (Tylenol) 500 mg PO Q4H PRN PRN Reason: FEVER > 100.4 F Last Admin: 02/01/18 18:45 Dose: 500 mg Al Hydroxide/Mg Hydroxide (Milk Of Nita Liq) 30 ml PO Q12H PRN PRN Reason: Mild Constipation Alprazolam (Xanax) 0.5 mg PO Q8H PRN PRN Reason: ANXIETY Last Admin: 02/02/18 05:26 Dose: 0.5 mg Aspirin (Ecotrin) 81 mg PO DAILY [facility] Last Admin: 02/02/18 08:41 Dose: 81 mg Atorvastatin Calcium (Lipitor) 40 mg PO HS [facility] Last Admin: 02/01/18 20:30 Dose: 40 mg Bisacodyl (Dulcolax Supp) 10 mg RECTAL DAILY PRN PRN Reason: SEVERE CONSITIPATION Chlorhexidine Gluconate (Peridex 0.12% Oral Kit) 15 ml OROPHARYNG BID@0800, 2000 [facility] Last Admin: 02/02/18 08:41 Dose: 15 ml Clopidogrel Bisulfate (Plavix) 75 mg PO DAILY [facility] Last Admin: 02/02/18 08:40 Dose: 75 mg Dextrose (D50w Vial) 50 ml IV.PUSH UNSCH PRN PRN Reason: PER HYPOGLYCEMIA PROTOCOL Famotidine (Pepcid Pf Inj) 20 mg IV.PUSH Q12HR [facility] Last Admin: 02/02/18 08:41 Dose: 20 mg Glucagon (Glucagon Inj) 1 mg OTHER PRN PRN PRN Reason: for Hypoglycemia Protocol Heparin Sodium (Porcine) (Heparin Inj) 5,000 units IV.PUSH UNSCH PRN PRN Reason: aPTT < 25 Heparin Sodium (Porcine) (Heparin Inj) 2,500 units IV.PUSH UNSCH PRN PRN Reason: aPTT 25-39 Last Admin: 01/31/18 20:37 Dose: 2,500 units Heparin Sodium/Dextrose (Heparin/D5w 25,000 U/250 Ml) 25,000 unit in 250 mls @ 0 mls/hr IV.CONT TITRATE PRN; Protocol PRN Reason: Per Protocol Last Admin: 02/02/18 09:18 Dose: 1,000 units/hr, 10 mls/hr Sodium Chloride (Ns Inj) 1,000 mls @ 60 mls/hr IV.CONT .[id number] [facility] Last Admin: 02/02/18 05:28 Dose: 60 mls/hr Nitroglycerin/Dextrose (Nitroglycerin Drip Premix) 50 mg in 250 mls @ 1.5 mls/ hr IV.CONT TITRATE PRN; Protocol PRN Reason: Per Protocol Last Titration: 02/01/18 18:42 Dose: 10 mcg/min, 3 mls/hr Propofol (Diprivan 1000 Mg/100 Ml Inj) 1,000 mg in 100 mls @ 2.55 mls/hr IV.CONT TITRATE PRN; Protocol PRN Reason: Per Protocol Last Admin: 02/02/18 08:43 Dose: 5 mcg/kg/min, 2.55 mls/hr Azithromycin 500 mg/ Sodium (Chloride) 250 mls @ 250 mls/hr IV.SIG Q24H [facility] Aztreonam 1,000 mg/ Sodium (Chloride) 100 mls @ 200 mls/hr IV.SIG Q8H [facility] Insulin Aspart (Novolog Insulin Correctional Sugar Inj) 0 unit SQ Q6HR [facility]; Protocol Insulin Detemir (Levemir Inj) 6 unit SQ BID [facility] Last Admin: 02/02/18 10:04 Dose: 6 unit Lactulose (Lactulose Liq) 30 ml PO DAILY PRN PRN Reason: SEVERE CONSITIPATION Metoprolol Tartrate (Lopressor) 25 mg PO TID [facility] Last Admin: 02/02/18 08:41 Dose: 25 mg Miscellaneous (Pill Splitter) 1 each OTHER UNSCH PRN PRN Reason: SEE LABEL COMMENTS Miscellaneous Medication () 1 each OROPHARYNG 0000,0400,1200,1600 [facility] Morphine Sulfate (Morphine Inj) 2 mg IV.PUSH Q20M PRN PRN Reason: PAIN 1-10 Last Admin: 02/01/18 02:53 Dose: 2 mg Nitroglycerin (Nitro-Bid 2% Oint) 0.5 inch TOPICAL Q6HR [facility] Last Admin: 02/02/18 05:19 Dose: Not Given Pharmacy Profile Note (Vancomycin Consult Pharmacy) 1 each OTHER UNSCH PRN PRN Reason: Pharmacy to dose Sennosides (Senokot) 17.2 mg PO Q12H PRN PRN Reason: Moderate Constipation Sodium Chloride (Ns Flush) 2 ml IV.FLUSH BID [facility] Last Admin: 02/02/18 08:41 Dose: 2 ml Sodium Chloride (Ns Flush) 2 ml IV.FLUSH PRN PRN PRN Reason: FLUSH AFTER USING IV ACCESS Tramadol HCl (Ultram) 50 mg PO Q6H PRN PRN Reason: Pain 1-10 Last Admin: 02/02/18 05:25 Dose: 50 mg Allergies Allergy/AdvReac Type Severity Reaction Status Date / Time penicillin G Allergy Severe UNKNOWN Verified 01/31/18 02:06 Sulfa (Sulfonamide Allergy Severe UNKNOWN Verified 01/31/18 02:06 Antibiotics) Home Medications Medication Instructions Recorded Confirmed Type alprazolam 0.5 mg PO Q8HR PRN 01/31/18 01/31/18 History tramadol 50 mg PO Q6H PRN 01/31/18 01/31/18 History Exam Vital signs: Vital Signs 02/01/18 13:00 02/01/18 14:00 02/01/18 15:00 Temperature Pulse Rate 68 86 90 Respiratory Rate Blood Pressure Pulse Oximetry 02/01/18 15:13 02/01/18 16:00 02/01/18 17:00 Temperature 100.3 F H Pulse Rate 83 92 H 90 Respiratory Rate 18 Blood Pressure 113/53 L Pulse Oximetry 96 02/01/18 17:56 02/01/18 18:00 02/01/18 18:33 Temperature 100.6 F H Pulse Rate 94 H 94 H 96 H Respiratory Rate 17 17 Blood Pressure 118/79 134/73 Pulse Oximetry 96 92 L 02/01/18 19:00 02/01/18 20:00 02/01/18 21:00 Temperature 99.7 F H Pulse Rate 72 71 77 Respiratory Rate 18 Blood Pressure 100/71 Pulse Oximetry 94 L 02/01/18 22:00 02/01/18 23:00 02/02/18 00:00 Temperature 98.9 F Pulse Rate 75 76 77 Respiratory Rate 18 Blood Pressure 106/57 L Pulse Oximetry 96 02/02/18 01:00 02/02/18 02:00 02/02/18 03:00 Temperature Pulse Rate 76 81 89 Respiratory Rate Blood Pressure Pulse Oximetry 02/02/18 04:00 02/02/18 05:00 02/02/18 06:00 Temperature 99 F Pulse Rate 99 H 92 H 100 H Respiratory Rate 18 Blood Pressure 139/75 Pulse Oximetry 95 02/02/18 06:20 02/02/18 07:43 02/02/18 10:07 Temperature Pulse Rate Respiratory Rate 16 16 Blood Pressure Pulse Oximetry 94 L 100 100 02/02/18 12:51 Temperature Pulse Rate Respiratory Rate 16 Blood Pressure Pulse Oximetry 100 Intake & Output 02/01/18 02/02/18 02/02/18 18:59 06:59 18:59 Intake Total 1580 / 1580 1480 / 1480 250 / 250 Output Total 1000 / 1000 600 / 600 Balance 580 / 580 880 / 880 250 / 250 Weight 85 kg Intake: IV 1100 / 1100 1000 / 1000 250 / 250 Heparin/D5W 25,000 U/250 mL 25, 250 / 250 000 unit In 250 ml @ Per Protocol IV.CONT TITRATE PRN Rx #:[id number] NS Inj 1,000 ML @ 60 mls/hr IV. 1000 / 1000 1000 / 1000 CONT .[id number] [facility] Rx#:[id number] KCl 20 mEq Premix Inj 20 meq In 100 / 100 100 ml @ 50 mls/hr IV.SIG Q2H [facility] Rx#:[id number] Oral 480 / 480 480 / 480 Output: Urine 1000 / 1000 600 / 600 Other: # Bowel Movements 0 - Constitutional no acute distress, obtunded - Routine HEENT Exam Head: Present: normocephalic, atraumatic Eye: Absent: conjunctival icterus, scleral injection ENT: Present: mucous membranes moist. Absent: dentition normal (edentulous) - Routine Neck Exam Present: supple. Absent: JVD - Routine Respiratory Exam Present: patient mechanically ventilated, CTA bilaterally - Routine Cardiovascular Exam Present: S1, S2, irregular rhythm. Absent: murmur, gallop, rubs - Routine Abdominal Exam Present: soft, normoactive bowel sounds, distended. Absent: tenderness, organomegaly, mass, hernia - Routine Extremities Exam Present: normal capillary refill. Absent: cyanosis, clubbing, edema - Routine Skin Exam Present: dry, warm. Absent: rash, ecchymosis - Routine Neurological Exam pt is heavily sedated, on propofol - Routine Psychiatric Exam Present: unable to assess Results - Labs CBC & Chem 7: 02/02/18 05:20 02/02/18 05:20 Labs: Laboratory Results - last 24 hr 02/01/18 02/01/18 02/02/18 17:35 20:37 05:20 WBC RBC Hgb Hct MCV MCH MCHC RDW Plt Count MPV Prelim Diff (Auto) WBC Differential Seg Neuts % (Manual) Band Neuts % (Manual) Lymphocytes % (Manual) Monocytes % (Manual) Eosinophils % (Manual) Abs Neuts (Manual) Differential Comment Toxic Granulation Platelet Estimate Platelet Morphology APTT Puncture Site Patient Temperature O2 Saturation ABG pH ABG pCO2 ABG pO2 ABG HCO3 ABG O2 Content ABG Base Excess ABG Methemoglobin [place] Test Hemoglobin Carboxyhemoglobin O2 Delivery Device Liter Flow Vent Setting Inspired O2 Critical Value Sodium 137 Potassium 4.6 Chloride 104 Carbon Dioxide 24.1 Anion Gap 9 BUN 29 H Creatinine 1.27 H Estimated GFR 40 L POC Glucose 298 H 260 H Random Glucose 207 H Calcium 8.5 Urine Color Urine Clarity Urine pH Ur Specific [place] Urine Protein Urine Glucose (UA) Urine Ketones Urine Occult Blood Urine Nitrate Urine Bilirubin Urine Urobilinogen Ur Leukocyte Esterase Urine RBC Urine WBC Urine WBC Clumps Amorphous Sediment Urine Bacteria Urine Mucus Micro UA Comment Ur Microscopic Review Urine Culture Comments 02/02/18 02/02/18 02/02/18 05:20 05:20 06:27 WBC 12.5 H RBC 3.87 L Hgb 11.3 L Hct 33.9 L MCV 87.8 MCH 29.3 MCHC 33.4 RDW 16.3 Plt Count 143 L MPV 11.2 H Prelim Diff (Auto) Manual diff required WBC Differential Manual diff final Seg Neuts % (Manual) 77 H Band Neuts % (Manual) 8 H Lymphocytes % (Manual) 6 L Monocytes % (Manual) 7 Eosinophils % (Manual) 2 Abs Neuts (Manual) 10.6 H Differential Comment . Toxic Granulation 1+ H Platelet Estimate Low L Platelet Morphology Enlarged H APTT 38.5 H Puncture Site Right radial Patient Temperature 98.6 O2 Saturation 91 ABG pH 7.16 L* ABG pCO2 57 H* ABG pO2 83 ABG HCO3 19 L ABG O2 Content 16.1 ABG Base Excess -8.2 L ABG Methemoglobin 1.4 [place] Test Present Hemoglobin 12.6 Carboxyhemoglobin 0.9 O2 Delivery Device Non-rebreathing mask Liter Flow 15.00 Vent Setting Inspired O2 100 Critical Value Yes Sodium Potassium Chloride Carbon Dioxide Anion Gap BUN Creatinine Estimated GFR POC Glucose Random Glucose Calcium Urine Color Urine Clarity Urine pH Ur Specific [place] Urine Protein Urine Glucose (UA) Urine Ketones Urine Occult Blood Urine Nitrate Urine Bilirubin Urine Urobilinogen Ur Leukocyte Esterase Urine RBC Urine WBC Urine WBC Clumps Amorphous Sediment Urine Bacteria Urine Mucus Micro UA Comment Ur Microscopic Review Urine Culture Comments 02/02/18 02/02/18 02/02/18 06:30 09:00 09:26 WBC RBC Hgb Hct MCV MCH MCHC RDW Plt Count MPV Prelim Diff (Auto) WBC Differential Seg Neuts % (Manual) Band Neuts % (Manual) Lymphocytes % (Manual) Monocytes % (Manual) Eosinophils % (Manual) Abs Neuts (Manual) Differential Comment Toxic Granulation Platelet Estimate Platelet Morphology APTT Puncture Site Patient Temperature O2 Saturation ABG pH ABG pCO2 ABG pO2 ABG HCO3 ABG O2 Content ABG Base Excess ABG Methemoglobin [place] Test Hemoglobin Carboxyhemoglobin O2 Delivery Device Liter Flow Vent Setting Inspired O2 Critical Value Sodium Potassium Chloride Carbon Dioxide Anion Gap BUN Creatinine Estimated GFR POC Glucose 334 H 365 H Random Glucose Calcium Urine Color Yellow Urine Clarity Cloudy H Urine pH 5.0 Ur Specific [place] 1.014 Urine Protein 30 H Urine Glucose (UA) Negative Urine Ketones 20 Urine Occult Blood Small H Urine Nitrate Positive H Urine Bilirubin Negative Urine Urobilinogen Less than 2 Ur Leukocyte Esterase Large H Urine RBC 17 H Urine WBC Urine WBC Clumps Many H Amorphous Sediment Rare H Urine Bacteria Many H Urine Mucus Few H Micro UA Comment Culture indicated Ur Microscopic Review Not Reportable Urine Culture Comments Culture indicated 02/02/18 02/02/18 11:36 12:05 WBC RBC Hgb Hct MCV MCH MCHC RDW Plt Count MPV Prelim Diff (Auto) WBC Differential Seg Neuts % (Manual) Band Neuts % (Manual) Lymphocytes % (Manual) Monocytes % (Manual) Eosinophils % (Manual) Abs Neuts (Manual) Differential Comment Toxic Granulation Platelet Estimate Platelet Morphology APTT 45.5 H Puncture Site Right radial Patient Temperature 98.6 O2 Saturation 89 L* ABG pH 7.25 L* ABG pCO2 49 H ABG pO2 68 ABG HCO3 21 L ABG O2 Content 15.9 ABG Base Excess -5.4 L ABG Methemoglobin 1.1 [place] Test Present Hemoglobin 12.7 Carboxyhemoglobin 1.3 O2 Delivery Device Vent Liter Flow Vent Setting See comments Inspired O2 100 Critical Value Yes Sodium Potassium Chloride Carbon Dioxide Anion Gap BUN Creatinine Estimated GFR POC Glucose Random Glucose Calcium Urine Color Urine Clarity Urine pH Ur Specific [place] Urine Protein Urine Glucose (UA) Urine Ketones Urine Occult Blood Urine Nitrate Urine Bilirubin Urine Urobilinogen Ur Leukocyte Esterase Urine RBC Urine WBC Urine WBC Clumps Amorphous Sediment Urine Bacteria Urine Mucus Micro UA Comment Ur Microscopic Review Urine Culture Comments - Imaging Impressions Chest X-Ray 02/02/18 00:00 CONCLUSION: Worsening aeration Chest X-Ray 02/02/18 00:00 CONCLUSION: 1. Endotracheal tube and nasogastric tube in place. 2. Slight increase in hazy opacity at the right lung base. Patchy opacity left lung base partially visualized. Assessment and Plan - Plan NSTEMI ? Spe[place] Fever Probable UTI , clx P H/o rectal cancer 3 yrs ago PNA vs pulmonanry edema critical , unstab;e pt CT A/P cont current abx add flagyl lactic acid BNP fu blood clx chk c.diff dw RN dw son @ b/s
[2018-02-02] MEDS: Azithromycin Inj 500 MG in Sodium Chlor 0.9% Inj 250 ML IV.SIG SCH (13:55)
[2018-02-02] MEDS: Oral Hygiene Kit OROPHARYNG SCH ×2 (13:55→17:32)
--- NOTE | 2018-02-02 14:10 | P.PNNP ---
Subjective Interval history: Patient is intubated and transferred to ICU Physical Exam Vital signs: Vital Signs 02/01/18 15:00 02/01/18 15:13 02/01/18 16:00 Temperature 100.3 F H Pulse Rate 90 83 92 H Respiratory Rate 18 Blood Pressure 113/53 L Pulse Oximetry 96 02/01/18 17:00 02/01/18 17:56 02/01/18 18:00 Temperature Pulse Rate 90 94 H 94 H Respiratory Rate 17 Blood Pressure 118/79 Pulse Oximetry 96 02/01/18 18:33 02/01/18 19:00 02/01/18 20:00 Temperature 100.6 F H 99.7 F H Pulse Rate 96 H 72 71 Respiratory Rate 17 18 Blood Pressure 134/73 100/71 Pulse Oximetry 92 L 94 L 02/01/18 21:00 02/01/18 22:00 02/01/18 23:00 Temperature Pulse Rate 77 75 76 Respiratory Rate Blood Pressure Pulse Oximetry 02/02/18 00:00 02/02/18 01:00 02/02/18 02:00 Temperature 98.9 F Pulse Rate 77 76 81 Respiratory Rate 18 Blood Pressure 106/57 L Pulse Oximetry 96 02/02/18 03:00 02/02/18 04:00 02/02/18 05:00 Temperature 99 F Pulse Rate 89 99 H 92 H Respiratory Rate 18 Blood Pressure 139/75 Pulse Oximetry 95 02/02/18 06:00 02/02/18 06:20 02/02/18 07:00 Temperature Pulse Rate 100 H 122 H Respiratory Rate Blood Pressure Pulse Oximetry 94 L 02/02/18 07:43 02/02/18 08:00 02/02/18 10:07 Temperature 100.2 F H Pulse Rate 98 H Respiratory Rate 16 16 16 Blood Pressure 101/61 Pulse Oximetry 100 100 100 02/02/18 12:51 Temperature Pulse Rate Respiratory Rate 16 Blood Pressure Pulse Oximetry 100 Intake & Output 02/01/18 02/02/18 02/02/18 18:59 06:59 18:59 Intake Total 1580 / 1580 1480 / 1480 250 / 250 Output Total 1000 / 1000 600 / 600 Balance 580 / 580 880 / 880 250 / 250 Weight 85 kg Intake: IV 1100 / 1100 1000 / 1000 250 / 250 Heparin/D5W 25,000 U/250 mL 25, 250 / 250 000 unit In 250 ml @ Per Protocol IV.CONT TITRATE PRN Rx #:[id number] NS Inj 1,000 ML @ 60 mls/hr IV. 1000 / 1000 1000 / 1000 CONT .[id number] TATYANA Rx#:[id number] KCl 20 mEq Premix Inj 20 meq In 100 / 100 100 ml @ 50 mls/hr IV.SIG Q2H TATYANA Rx#:[id number] Oral 480 / 480 480 / 480 Output: Urine 1000 / 1000 600 / 600 Other: Date of Last Bowel Movement 01/31/18 # Bowel Movements 0 Narrative: General: Elderly woman in severe respiratory distress, agitated, confused HEENT: Extraocular movements are intact, frothy secretions in mouth Cardiovascular: Tachycardia, unable to hear heart tones over the sound of wheezing and bronchospasm Respiratory: Diffuse bilateral wheezes and crackles, acceptable bilateral air movement, labored respiration, tachypnea Abdomen: Soft, nontender, nondistended, normal bowel sounds, no guarding Extremities: Tepid, mottled, no edema 2+ distal pulses in bilateral upper and lower extremities Neuro: Confused, agitated, moving 4 limbs with strength. Assessment and Plan - Assessment (1) Acute kidney injury Code(s): N17.9 - Acute kidney failure, unspecified Status: Acute Plan: Patient may have suffered LOLIS due to iodinated contrast received on 01/28/18. In addition, there could be a component of renal hypoperfusion due to NSTEMI. Continue conservative management. Avoid nephrotoxic agents. Monitor urine output and renal function. Patient son-in-law neurosurgeon called and I have a long discussion with Dr. Mekhi Herrera [phone] Patient has congestive heart failure and has to be intubated on FiO2 100% going on vasopressors She had AMI causing renal dysfunction Possible nephrosclerosis due to her age was discussed Chest x-ray showed pulmonary edema Dr. Acosta is following her and will decide about volume Patient has underlying sepsis possible UTI cultures are pending ID is consulted I will place her on KVO Normal saline at 30 cc an hour Kidney ultrasound ordered Infectious disease is following antibiotics she is on azithromycin Follow cultures Patient has AMI and cardiology following (2) Type 2 diabetes mellitus Code(s): E11.9 - Type 2 diabetes mellitus without complications Status: Chronic Plan: insulin coverage to maintain blood glucose between 140 and 180. (3) Non-ST elevated myocardial infarction (non-STEMI) Code(s): I21.4 - Non-ST elevation (NSTEMI) myocardial infarction Status: Acute - Plan Cardiology on the case.
[2018-02-02] MEDS: Sodium Chlor 0.9% Inj 500 ML IV.CONT SCH (17:32)
[2018-02-02] MEDS: SODIUM CHLORIDE 0.9% IV.SIG SCH (17:33)
[2018-02-02] MEDS: AZTREONAM IV.SIG SCH (17:33)
[2018-02-02] MEDS: Phenylephrine Inj 40 MG in Sodium Chlor 0.9% Inj 496 ML IV.CONT PRN (17:34)
[2018-02-02] MEDS: Insulin Regular (For Infusion) 100 UNIT in Sodium Chlor 0.9% Inj 99 ML IV.CONT PRN (17:35)
[2018-02-02 18:09] LABS: ABG Base Excess -2.6 mmol/L (-2-2); ABG PCO2 30 mmHg (38-42); ABG PO2 293 mmHg (61-120)
[2018-02-02] MEDS: Beneprotein Powder Packet G-TUBE SCH (18:25)
[2018-02-02] MEDS: Vancomycin Inj 1,000 MG in Sodium Chlor 0.9% Inj 250 ML IV.SIG SCH (18:25)
--- NOTE | 2018-02-02 20:19 | US ---
EXAM DATE: 02/02/2018 8:14 PM EDT AGE/SEX: 87 years / Female INDICATIONS: Elevated labs. CLINICAL DATA: This is the patient's initial encounter. Patient reports that signs and symptoms have been present for 1 day and indicates a pain score of 10/10. MEDICAL/SURGICAL HISTORY: Diabetes. Hypertension. Chest pain. Hyperlipidemia. Rectal cancer. Hysterectomy. Appendectomy. Tonsillectomy. Heart artery stent. COMPARISON: No prior exams available for comparison. MEASUREMENTS: Right Kidney:__10.5 x 5.3 x 5.4 cm Left Kidney:__10.1 x 5.7 x 4.6 cm FINDINGS: Right Kidney: A few scattered cysts measuring up to 2 cm. No hydronephrosis. Mildly elevated parenchy mal echogenicity. Left Kidney: A few scattered cysts measuring up to 1.2 cm. No hydronephrosis. Mildly elevated parench ymal echogenicity. Bladder: Thorne catheter is present. Bladder decompressed. Other: None. CONCLUSION: 1. Increased renal echogenicity typical of chronic parenchymal changes. 2. No evidence of acute obstructive uropathy. 3. Small bilateral benign-appearing cysts. Electronically signed by: Mitchell Pierre MD 02/02/2018 8:17 PM EDT
[2018-02-02] MEDS: Famotidine PF Inj 20 MG/2 ML Vial IV.PUSH SCH (21:47)
--- NOTE | 2018-02-02 22:22 | P.PNCC ---
Critical Care Event Note Code activated: No Narrative: Family requested update. I reviewed chart and examined patient. I spoke with granddaughter, Treva, and her (neurosurgeon). Multiple questions answered. Reviewed condition and plan of care by organ system. Duration of conversation 46 minutes. Critical care time: less than 30 mins (Not billing for critical care)
[2018-02-02] MEDS: Acetaminophen 500 MG Tablet PO PRN (22:31)
--- NOTE | 2018-02-02 22:39 | CT ---
EXAM DATE: 02/02/2018 10:24 PM EDT AGE/SEX: 87 years / Female INDICATIONS: Abdomen pain. CLINICAL DATA: This is the patient's initial encounter. Patient reports that signs and symptoms have been present for 1 day and indicates a pain score of Nonresponsive. MEDICAL/SURGICAL HISTORY: Cardiovascular disease. Hypertension. Carcinoma, rectal. Diabetes Appendectomy. Hysterectomy. RADIATION DOSE: 11.92 CTDI (mGy) COMPARISON: No prior exams available for comparison. TECHNIQUE: Multiple contiguous axial images were obtained through the abdomen. Images were obtained using multiple row detector helical technique. Using automated exposure control and adjustment of the mA and/or kV according to patient size, radiation dose was kept as low as reasonably achievable to o btain optimal diagnostic quality images. DICOM format image data is available electronically for rev iew and comparison. FINDINGS: Small bilateral pleural effusions are present. There is mild to moderate dependent/compressive atelec tasis of both lower lobes. The visualized lung bases are otherwise. No pneumothorax seen. Heart size within normal limits. There is coronary artery calcification. No mediastinal, hilar or axillary lymphadenopathy demonstrated. Noncontrast appearance of the liver, spleen, pancreas and adrenal glands within normal limits. No acu te renal abnormalities are demonstrated. Left kidney is mildly atrophic and there are vascular calcif ications. No acute inflammatory changes are demonstrated of the gastrointestinal tract. No obstruction. No free fluid or free air. No lymphadenopathy. There is a nasogastric tube with tip at the gastric outlet. Urinary bladder is decompressed with a Thorne. There is aortoiliac atherosclerosis. No aneurysm. Numerous small stones are seen dependently within the gallbladder. No duct stone or ductal dilatation . There is a 14 mm mass in the central to upper left breast. No acute bony abnormalities are demonstrated. There are old, healed left rib fractures. There is mild , generalized body wall edema. CONCLUSION: 1. No acute abnormalities are seen in the abdomen or pelvis. 2. Mildly atrophic left kidney with vascular calcifications. 3. Aortoiliac atherosclerosis. No aneurysm. 4. Cholelithiasis. 5. Bilateral small pleural effusions and mild to moderate basilar atelectasis. 6. Coronary artery calcification. 7. Nonspecific mass of the visualized left breast. Last mammogram in our system was 2012. Up-to-date bilateral mammography with a diagnostic left breast mammogram recommended. Electronically signed by: Mitchell Pierre MD 02/02/2018 10:38 PM EDT
[2018-02-03] MEDS: Sod Chloride 0.9% Inj 1,000 ML IV.CONT SCH ×2 (00:37→17:32)
[2018-02-03] MEDS: AZTREONAM IV.SIG SCH ×5 (00:40→22:57)
[2018-02-03] MEDS: SODIUM CHLORIDE 0.9% IV.SIG SCH ×5 (00:40→22:57)
[2018-02-03] MEDS: Oral Hygiene Kit OROPHARYNG SCH ×4 (00:41→17:30)
[2018-02-03] MEDS: Phenylephrine Inj 40 MG in Sodium Chlor 0.9% Inj 496 ML IV.CONT PRN (02:18)
[2018-02-03] MEDS: Propofol 1000 mg/100 ml Inj 1,000 MG/100 ML BOTTLE IV.CONT PRN ×3 (02:37→19:47)
[2018-02-03 03:05] LABS: Baso # (Auto) 0.2 th/mm3 (0.0-0.2); Baso % (Auto) 1.5 % (0.0-2.0); Eos # (Auto) 0.2 th/mm3 (0.0-0.4); Eos % (Auto) 1.4 % (0.0-4.0); Hematocrit 38.7 % (35.0-46.0); Hemoglobin 12.8 gm/dL (11.6-15.3); Lymph # (Auto) 1.9 th/mm3 (1.0-4.8); Lymph % (Auto) 12.8 % (9.0-44.0); Mean Corpuscular HGB Conc 33.2 % (32.0-36.0); Mean Corpuscular Hemoglobin 29.2 pg (27.0-34.0); Mean Platelet Volume 10.4 fL (7.0-11.0); Mono # (Auto) 1.4 th/mm3 (0.0-0.9); Mono % (Auto) 9.5 % (0.0-8.0); Neut # (Auto) 11.3 th/mm3 (1.8-7.7); Neut % (Auto) 74.8 % (16.0-70.0); Platelet Count 209 th/mm3 (150-450); Red Cell Distribution Width 16.3 % (11.6-17.2); White Blood Count 15.2 th/mm3 (4.0-11.0)
[2018-02-03 03:33] LABS: Calcium 8.6 mg/dL (8.5-10.1); Carbon Dioxide 22.3 meq/L (21.0-32.0); Potassium 4.2 meq/L (3.5-5.1)
[2018-02-03 03:43] LABS: Troponin I 16.9 ng/mL (0.02-0.05)
[2018-02-03 03:56] LABS: Creatine Kinase MB 11.7 ng/mL (0.5-3.6)
[2018-02-03] MEDS: Acetaminophen 500 MG Tablet PO PRN ×2 (04:00→22:56)
[2018-02-03 04:24] LABS: ABG Base Excess -3.7 mmol/L (-2-2); ABG PCO2 30 mmHg (38-42); ABG PO2 145 mmHg (61-120)
[2018-02-03] MEDS: Heparin Drip 25,000 UNIT/250 ML BAG IV.CONT PRN (05:48)
--- NOTE | 2018-02-03 06:52 | XR ---
EXAM DATE: 02/03/2018 6:49 AM EST AGE/SEX: 87 years / Female INDICATIONS: Hypoxemia. Respiratory failure. CLINICAL DATA: This is the patient's subsequent encounter. Patient reports that signs and symptoms h ave been present for 4 - 6 days and indicates a pain score of Nonresponsive. MEDICAL/SURGICAL HISTORY: Non-responsive. Non-responsive. [place] [facility] [place]. . FINDINGS: Endotracheal tube tip is at the magi. Slight retraction recommended. Nasogastric tube descends into the stomach. There has been improvement in aeration with decrease in confluence of right lung infilt rate. Persistent consolidation at the left base. Accounting for rotation, cardiac contours are grossl y unchanged. CONCLUSION: Endotracheal tube tip is a bit deep Improving aeration Electronically signed by: Mitchell Fox MD 02/03/2018 6:51 AM EST
[2018-02-03] MEDS ORDERED: Iohexol 350 MG/ML 100 ML Vial (for Cath Lab) IVCONTRAST ONE (07:59)
[2018-02-03] MEDS: Famotidine PF Inj 20 MG/2 ML Vial IV.PUSH SCH ×2 (08:32→21:19)
[2018-02-03] MEDS: Metoprolol Tartrate 25 MG Tablet PO SCH ×3 (08:32→17:29)
[2018-02-03] MEDS: Beneprotein Powder Packet G-TUBE SCH ×3 (08:33→17:33)
[2018-02-03] MEDS: Sodium Chloride 0.9% 2 ML Flush BID IV.FLUSH SCH (08:33)
[2018-02-03] MEDS: Chlorhexidine 0.12% Oral Kit 15 ML UDC OROPHARYNG SCH ×2 (08:34→20:13)
[2018-02-03] MEDS: Heparin 10,000 UNITS/10 ML Vial (for IV use) IV.PUSH PRN (08:35)
[2018-02-03 09:13] LABS: Troponin I 10.2 ng/mL (0.02-0.05)
[2018-02-03 09:25] LABS: Creatine Kinase MB 8.6 ng/mL (0.5-3.6)
--- NOTE | 2018-02-03 10:33 | ECHRPT ---
Indication: HEART FAILURE CONCLUSIONS Normal left ventricular size. Mild concentric left ventricular hypertrophy. The left ventricular systolic function is severely reduced with an estimated ejection fraction less than 20%. Global hypokinesis with apical akinesis/dyskinesis. The left atrial size is wscz-fz-kdavoifkhy dilated. Mitral annular calcification is present. Oyoeu-du-cisp mitral valve regurgitation. Aortic valve sclerosis is present. There is trace tricuspid valve regurgitation. The estimated pulmonary arterial pressure is 41 mmHg. There is a small pericardial effusion present. BP: / HR: Rhythm: MEASUREMENTS (Male / Female) Normal Values Technical Quality: 2D ECHO LV Diastolic Diameter PLAX 4.5 cm 4.2 - 5.9 / 3.9 - 5.3 cm LV Systolic Diameter PLAX 4.2 cm IVS Diastolic Thickness 1.4 cm 0.6 - 1.0 / 0.6 - 0.9 cm LVPW Diastolic Thickness 0.9 cm 0.6 - 1.0 / 0.6 - 0.9 cm LV Relative Wall Thickness 0.5 LV Ejection Fraction MOD BP 26.5 % >= 55 % LV Ejection Fraction MOD 4C 20.0 % LV Ejection Fraction 4C AL 20.6 % LV Ejection Fraction MOD 2C 25.5 % LV Ejection Fraction 2C AL 22.6 % DOPPLER AV Peak Velocity 162.0 cm/s AV Peak Gradient 10.5 mmHg TR Peak Velocity 280.0 cm/s TR Peak Gradient 31.4 mmHg Right Atrial Pressure 10.0 mmHg Pulmonary Artery Systolic Pressu 41.4 mmHg Right Ventricular Systolic Press 41.4 mmHg FINDINGS LEFT VENTRICLE Normal left ventricular size. Mild concentric left ventricular hypertrophy. The left ventricular systolic function is severely reduced with an estimated ejection fraction less than 20%. Apical dyskinesis RIGHT VENTRICLE Normal right ventricular size and systolic function. LEFT ATRIUM The left atrial size is zaby-di-rvlulqhovm dilated. RIGHT ATRIUM The right atrial size is normal. ATRIAL SEPTUM Normal atrial septal thickness without atrial level shunting by limited color doppler interrogation. AORTA The aortic root and proximal ascending aorta are normal in size on limited imaging. MITRAL VALVE Mitral annular calcification is present. Qlxix-le-aypw mitral valve regurgitation. AORTIC VALVE Aortic valve sclerosis is present. TRICUSPID VALVE There is trace tricuspid valve regurgitation. The estimated pulmonary arterial pressure is 41 mmHg. PULMONARY VALVE No pulmonary valve regurgitation or stenosis. VESSELS The inferior vena cava is normal in size. PERICARDIUM There is a small pericardial effusion present. Carl Noble MD (Electronically Signed) Final Date:03 February 2018 10:31
--- NOTE | 2018-02-03 11:29 | P.PN ---
Subjective Interval history: Pt in afib w/ ventricular runs, still intubated, on low dose kylie. Physical Exam Vital signs: Vital Signs 02/02/18 12:51 02/02/18 13:00 02/02/18 16:00 Temperature 100.0 F H Pulse Rate 82 69 Respiratory Rate 16 16 Blood Pressure 100/52 L Pulse Oximetry 100 100 02/02/18 16:15 02/02/18 19:00 02/02/18 20:00 Temperature 100.8 F H Pulse Rate 67 67 Respiratory Rate 16 16 Blood Pressure 114/66 Pulse Oximetry 100 100 02/02/18 20:34 02/02/18 21:55 02/03/18 00:00 Temperature 100.6 F H Pulse Rate 65 Respiratory Rate 16 16 Blood Pressure 110/55 L Pulse Oximetry 100 100 100 02/03/18 00:07 02/03/18 01:37 EDT 02/03/18 03:35 Temperature Pulse Rate 62 Respiratory Rate 16 19 Blood Pressure Pulse Oximetry 100 94 L 02/03/18 04:00 02/03/18 07:43 Temperature 99.7 F H Pulse Rate 78 Respiratory Rate 16 16 Blood Pressure 154/83 H Pulse Oximetry 100 100 Intake & Output 02/02/18 02/03/18 02/03/18 19:59 06:59 18:59 Intake Total 370 / 370 Output Total Balance 370 / 370 Weight Intake: IV 300 / 300 Heparin/D5W 25,000 U/250 mL 25, 000 unit In 250 ml @ Per Protocol IV.CONT TITRATE PRN Rx #:[id number] Neosynephrine Inj 40 MG In NS Inj 496 ML @ 40 MCG/MIN 30 mls/ hr IV.CONT TITRATE PRN Rx#: [id number] Diprivan 1000 mg/100 ml Inj 1, 100 / 100 000 mg In 100 ml @ 5 MCG/KG/MIN 2.55 mls/hr IV.CONT TITRATE PRN Rx#:[id number] Azithromycin Inj 500 MG In NS Inj 250 ML @ 250 mls/hr IV.SIG Q24H [facility] Rx#:[id number] Azactam Inj 2,000 GM In NS Inj 100 / 100 100 ML @ 200 mls/hr IV.SIG Q6H [facility] Rx#:[id number] Vancomycin Inj 1,000 MG In NS Inj 250 ML @ 250 mls/hr IV.SIG Q24H [facility] Rx#:[id number] Flagyl 500 MG Inj 100 ML @ 100 100 / 100 mls/hr IV.SIG Q8H [facility] Rx#: [id number] Tube Feeding Tube Irrigant Water Bolus Amount 70 / 70 Output: Urine Amount (Catheter) Indwelling Temp Sensing Catheter Gastric Drainage Orogastric Tube Other: Date of Last Bowel Movement # Bowel Movements - Constitutional Comments: sedated - Routine HEENT Exam Head: Present: atraumatic Eye: Present: EOMI ENT: Present: mucous membranes moist - Routine Neck Exam Present: supple. Absent: JVD - Routine Respiratory Exam Present: patient mechanically ventilated. Absent: accessory muscle use - Routine Cardiovascular Exam Present: irregular rhythm. Absent: murmur - Routine Abdominal Exam Present: soft - Routine Extremities Exam Absent: edema - Urinary Catheter Management Indwelling Temp Sensing Catheter Cath placed during this visit: no Results - Labs CBC & Chem 7: 02/03/18 02:50 02/03/18 02:50 Laboratory Results - last 24 hr 02/02/18 02/02/18 02/02/18 05:20 09:00 12:05 WBC RBC Hgb Hct MCV MCH MCHC RDW Plt Count MPV Neut % (Auto) Lymph % (Auto) [place] % (Auto) Eos % (Auto) Baso % (Auto) Neut # (Auto) Lymph # (Auto) [place] # (Auto) Eos # (Auto) Baso # (Auto) WBC Differential Differential Comment APTT 45.5 H Puncture Site Patient Temperature O2 Saturation ABG pH ABG pCO2 ABG pO2 ABG HCO3 ABG O2 Content ABG Base Excess ABG Methemoglobin [place] Test Hemoglobin Carboxyhemoglobin O2 Delivery Device Vent Setting Inspired O2 Critical Value Sodium Potassium Chloride Carbon Dioxide Anion Gap BUN Creatinine Estimated GFR POC Glucose Random Glucose Lactic Acid Calcium Magnesium Total Creatine Kinase CK-MB (CK-2) CK-MB (CK-2) % Troponin I B-Natriuretic Peptide 622 H Nasal Screen MRSA (PCR) Not detected 02/02/18 02/02/18 02/02/18 13:48 15:27 17:18 WBC RBC Hgb Hct MCV MCH MCHC RDW Plt Count MPV Neut % (Auto) Lymph % (Auto) [place] % (Auto) Eos % (Auto) Baso % (Auto) Neut # (Auto) Lymph # (Auto) [place] # (Auto) Eos # (Auto) Baso # (Auto) WBC Differential Differential Comment APTT Puncture Site Patient Temperature O2 Saturation ABG pH ABG pCO2 ABG pO2 ABG HCO3 ABG O2 Content ABG Base Excess ABG Methemoglobin [place] Test Hemoglobin Carboxyhemoglobin O2 Delivery Device Vent Setting Inspired O2 Critical Value Sodium Potassium Chloride Carbon Dioxide Anion Gap BUN Creatinine Estimated GFR POC Glucose 410 H 340 H Random Glucose Lactic Acid 1.8 Calcium Magnesium Total Creatine Kinase CK-MB (CK-2) CK-MB (CK-2) % Troponin I B-Natriuretic Peptide Nasal Screen MRSA (PCR) 02/02/18 02/02/18 02/02/18 18:00 18:12 18:12 WBC RBC Hgb Hct MCV MCH MCHC RDW Plt Count MPV Neut % (Auto) Lymph % (Auto) [place] % (Auto) Eos % (Auto) Baso % (Auto) Neut # (Auto) Lymph # (Auto) [place] # (Auto) Eos # (Auto) Baso # (Auto) WBC Differential Differential Comment APTT 41.7 H Puncture Site Right brachial Patient Temperature 98.6 O2 Saturation 98 ABG pH 7.46 H ABG pCO2 30 L ABG pO2 293 H ABG HCO3 21 L ABG O2 Content 16.4 ABG Base Excess -2.6 L ABG Methemoglobin 1.0 [place] Test Present Hemoglobin 11.5 L Carboxyhemoglobin 1.3 O2 Delivery Device Ventilator Vent Setting Prvc 16/550/10+/1.0 Inspired O2 70 Critical Value No Sodium Potassium Chloride Carbon Dioxide Anion Gap BUN Creatinine Estimated GFR POC Glucose Random Glucose Lactic Acid Calcium Magnesium Total Creatine Kinase CK-MB (CK-2) CK-MB (CK-2) % Troponin I 15.80 H* D B-Natriuretic Peptide Nasal Screen MRSA (PCR) 02/02/18 02/02/18 02/02/18 18:32 20:04 20:59 WBC RBC Hgb Hct MCV MCH MCHC RDW Plt Count MPV Neut % (Auto) Lymph % (Auto) [place] % (Auto) Eos % (Auto) Baso % (Auto) Neut # (Auto) Lymph # (Auto) [place] # (Auto) Eos # (Auto) Baso # (Auto) WBC Differential Differential Comment APTT Puncture Site Patient Temperature O2 Saturation ABG pH ABG pCO2 ABG pO2 ABG HCO3 ABG O2 Content ABG Base Excess ABG Methemoglobin [place] Test Hemoglobin Carboxyhemoglobin O2 Delivery Device Vent Setting Inspired O2 Critical Value Sodium Potassium Chloride Carbon Dioxide Anion Gap BUN Creatinine Estimated GFR POC Glucose 283 H 224 H 204 H Random Glucose Lactic Acid Calcium Magnesium Total Creatine Kinase CK-MB (CK-2) CK-MB (CK-2) % Troponin I B-Natriuretic Peptide Nasal Screen MRSA (PCR) 02/02/18 02/02/18 02/03/18 22:22 23:15 00:12 WBC RBC Hgb Hct MCV MCH MCHC RDW Plt Count MPV Neut % (Auto) Lymph % (Auto) [place] % (Auto) Eos % (Auto) Baso % (Auto) Neut # (Auto) Lymph # (Auto) [place] # (Auto) Eos # (Auto) Baso # (Auto) WBC Differential Differential Comment APTT Puncture Site Patient Temperature O2 Saturation ABG pH ABG pCO2 ABG pO2 ABG HCO3 ABG O2 Content ABG Base Excess ABG Methemoglobin [place] Test Hemoglobin Carboxyhemoglobin O2 Delivery Device Vent Setting Inspired O2 Critical Value Sodium Potassium Chloride Carbon Dioxide Anion Gap BUN Creatinine Estimated GFR POC Glucose 199 H 164 H 165 H Random Glucose Lactic Acid Calcium Magnesium Total Creatine Kinase CK-MB (CK-2) CK-MB (CK-2) % Troponin I B-Natriuretic Peptide Nasal Screen MRSA (PCR) 02/03/18 02/03/18 02/03/18 01:28 EST 02:13 02:37 WBC RBC Hgb Hct MCV MCH MCHC RDW Plt Count MPV Neut % (Auto) Lymph % (Auto) [place] % (Auto) Eos % (Auto) Baso % (Auto) Neut # (Auto) Lymph # (Auto) [place] # (Auto) Eos # (Auto) Baso # (Auto) WBC Differential Differential Comment APTT Puncture Site Patient Temperature O2 Saturation ABG pH ABG pCO2 ABG pO2 ABG HCO3 ABG O2 Content ABG Base Excess ABG Methemoglobin [place] Test Hemoglobin Carboxyhemoglobin O2 Delivery Device Vent Setting Inspired O2 Critical Value Sodium Potassium Chloride Carbon Dioxide Anion Gap BUN Creatinine Estimated GFR POC Glucose 143 H 142 H Random Glucose Lactic Acid Calcium Magnesium Total Creatine Kinase CK-MB (CK-2) CK-MB (CK-2) % Troponin I B-Natriuretic Peptide 858 H Nasal Screen MRSA (PCR) 02/03/18 02/03/18 02/03/18 02:37 02:50 02:50 WBC 15.2 H RBC 4.40 Hgb 12.8 Hct 38.7 MCV 88.0 MCH 29.2 MCHC 33.2 RDW 16.3 Plt Count 209 D MPV 10.4 Neut % (Auto) 74.8 H Lymph % (Auto) 12.8 [place] % (Auto) 9.5 H Eos % (Auto) 1.4 Baso % (Auto) 1.5 Neut # (Auto) 11.3 H Lymph # (Auto) 1.9 [place] # (Auto) 1.4 H Eos # (Auto) 0.2 Baso # (Auto) 0.2 WBC Differential . Differential Comment Auto diff final APTT 35.9 H Puncture Site Patient Temperature O2 Saturation ABG pH ABG pCO2 ABG pO2 ABG HCO3 ABG O2 Content ABG Base Excess ABG Methemoglobin [place] Test Hemoglobin Carboxyhemoglobin O2 Delivery Device Vent Setting Inspired O2 Critical Value Sodium 138 Potassium 4.2 Chloride 106 Carbon Dioxide 22.3 Anion Gap 10 BUN 39 H Creatinine 1.77 H Estimated GFR 27 L POC Glucose Random Glucose 156 H Lactic Acid Calcium 8.6 Magnesium Total Creatine Kinase 579 H CK-MB (CK-2) 11.7 H CK-MB (CK-2) % 2.0 Troponin I 16.90 H* D B-Natriuretic Peptide Nasal Screen MRSA (PCR) 02/03/18 02/03/18 02/03/18 02:50 02:58 04:07 WBC RBC Hgb Hct MCV MCH MCHC RDW Plt Count MPV Neut % (Auto) Lymph % (Auto) [place] % (Auto) Eos % (Auto) Baso % (Auto) Neut # (Auto) Lymph # (Auto) [place] # (Auto) Eos # (Auto) Baso # (Auto) WBC Differential Differential Comment APTT Puncture Site Left radial Patient Temperature 98.6 O2 Saturation 97 ABG pH 7.44 H ABG pCO2 30 L ABG pO2 145 H ABG HCO3 20 L ABG O2 Content 18.8 ABG Base Excess -3.7 L ABG Methemoglobin 1.1 [place] Test Present Hemoglobin 13.6 Carboxyhemoglobin 1.1 O2 Delivery Device Ventilator Vent Setting See comment Inspired O2 45 Critical Value No Sodium Potassium Chloride Carbon Dioxide Anion Gap BUN Creatinine Estimated GFR POC Glucose 164 H Random Glucose Lactic Acid Calcium Magnesium 2.2 Total Creatine Kinase CK-MB (CK-2) CK-MB (CK-2) % Troponin I B-Natriuretic Peptide Nasal Screen MRSA (PCR) 02/03/18 02/03/18 02/03/18 04:07 05:54 06:42 WBC RBC Hgb Hct MCV MCH MCHC RDW Plt Count MPV Neut % (Auto) Lymph % (Auto) [place] % (Auto) Eos % (Auto) Baso % (Auto) Neut # (Auto) Lymph # (Auto) [place] # (Auto) Eos # (Auto) Baso # (Auto) WBC Differential Differential Comment APTT Puncture Site Patient Temperature O2 Saturation ABG pH ABG pCO2 ABG pO2 ABG HCO3 ABG O2 Content ABG Base Excess ABG Methemoglobin [place] Test Hemoglobin Carboxyhemoglobin O2 Delivery Device Vent Setting Inspired O2 Critical Value Sodium Potassium Chloride Carbon Dioxide Anion Gap BUN Creatinine Estimated GFR POC Glucose 169 H 207 H 182 H Random Glucose Lactic Acid Calcium Magnesium Total Creatine Kinase CK-MB (CK-2) CK-MB (CK-2) % Troponin I B-Natriuretic Peptide Nasal Screen MRSA (PCR) 02/03/18 02/03/18 02/03/18 08:15 09:14 11:08 WBC RBC Hgb Hct MCV MCH MCHC RDW Plt Count MPV Neut % (Auto) Lymph % (Auto) [place] % (Auto) Eos % (Auto) Baso % (Auto) Neut # (Auto) Lymph # (Auto) [place] # (Auto) Eos # (Auto) Baso # (Auto) WBC Differential Differential Comment APTT Puncture Site Patient Temperature O2 Saturation ABG pH ABG pCO2 ABG pO2 ABG HCO3 ABG O2 Content ABG Base Excess ABG Methemoglobin [place] Test Hemoglobin Carboxyhemoglobin O2 Delivery Device Vent Setting Inspired O2 Critical Value Sodium Potassium Chloride Carbon Dioxide Anion Gap BUN Creatinine Estimated GFR POC Glucose 161 H 185 H Random Glucose Lactic Acid Calcium Magnesium Total Creatine Kinase 429 H CK-MB (CK-2) 8.6 H CK-MB (CK-2) % 2.0 Troponin I 10.20 H* D B-Natriuretic Peptide Nasal Screen MRSA (PCR) Microbiology 02/02/18 23:05 Blood - Peripheral Aerobic Blood Culture - Preliminary No growth in 1 day 02/02/18 23:05 Blood - Peripheral Anaerobic Blood Culture - Final QNS - See aerobic report. 01/31/18 21:38 Blood - Peripheral Aerobic Blood Culture - Preliminary No growth in 3 days 01/31/18 21:38 Blood - Peripheral Anaerobic Blood Culture - Preliminary No growth in 3 days 01/31/18 21:43 Blood - Peripheral Aerobic Blood Culture - Preliminary No growth in 3 days 01/31/18 21:43 Blood - Peripheral Anaerobic Blood Culture - Preliminary No growth in 3 days - Imaging Impressions Abdomen/Bladder Ultrasound 02/02/18 00:00 CONCLUSION: 1. Increased renal echogenicity typical of chronic parenchymal changes. 2. No evidence of acute obstructive uropathy. 3. Small bilateral benign-appearing cysts. Abdomen/Pelvis CT 02/02/18 00:00 CONCLUSION: 1. No acute abnormalities are seen in the abdomen or pelvis. 2. Mildly atrophic left kidney with vascular calcifications. 3. Aortoiliac atherosclerosis. No aneurysm. 4. Cholelithiasis. 5. Bilateral small pleural effusions and mild to moderate basilar atelectasis. 6. Coronary artery calcification. 7. Nonspecific mass of the visualized left breast. Last mammogram in our system was 2012. Up-to-date bilateral mammography with a diagnostic left breast mammogram recommended. Chest X-Ray 02/03/18 00:00 CONCLUSION: Endotracheal tube tip is a bit deep Improving aeration Assessment and Plan - Assessment (1) Frail elderly Code(s): R54 - Age-related physical debility Status: Acute (2) Acute myocardial infarction Code(s): I21.9 - Acute myocardial infarction, unspecified Status: Acute Plan: Discussed with family at great length yesterday over multiple conversations, time totaling over 90 mins; They want to pursue high-risk cardiac cath/PCI, Dr. Peralta will do today; continue medical mgt. 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 Peralta to cath today, dr. Johnson will be returning tomorrow.
[2018-02-03] MEDS: Sodium Chlor 0.9% Inj 500 ML IV.CONT SCH (11:32)
--- NOTE | 2018-02-03 11:33 | P.DIET ---
Nutritional Evaluation Type of nutrition evaluation: initial Nutrition consult regarding: Tube Feeding Screening comments: Assessed per SCCM and ASPEN guidelines for critically ill pts with a BMI >30.0 Objective - Diagnosis Non-Stemi - Objective Body Mass Index: 33.9 % IBW: 164 (IBW = 120#) Body Weight Used for Calculations: IBW (54.5 kg for protein needs), Actual ( 89.6 kg for kcaloric needs) Energy Needs - Lower Range (kCal/kg): 11 Energy Needs - Upper Range (kCal/kg): 14 Lower Limit kCal/kg (kCals): 986 Upper Limit kCal/kg (kCals): 1,254 Lower Limit Protein Factor (Grams per Kg): 1.8 Upper Limit Protein Factor (Grams per Kg): 2.2 Lower Protein Needs (Protein): 98 Upper Protein Needs (Protein): 120 Dietitian Reviewed in Medical Record: Curent medications, Intake & Output, Labs , Medical history, Tube feeding Diet Order: NPO Assessment Assessment: Pt at high nutrition risk needing TFing while intubated. Current order is for Glucerna 1.5 @ 40 mls/hr goal with Beneprotein 1 pack tid. Recommend change to Vital High Protein @ 50 mls/hr to provide 1200 kcals, 105 gms protein and 1003 mls of free water. Some additional kcals will be provided by propofol (1.1 kcal/ ml). Recommendations: Vital High Protein @ 50 mls/hr goal Dietitian to Monitor: Lab values, Intake & Output, Tube feeding tolerance, Weight change, Medical course
[2018-02-03] MEDS ORDERED: Heparin 10,000 UNITS/10 ML Vial (for IV use) ONE (11:44)
[2018-02-03] MEDS ORDERED: Heparin/NS PF Inj 1,000 ML ONE (11:44)
--- NOTE | 2018-02-03 11:45 | P.PNID ---
Subjective Remarks: remains on vent inafib on low dose of pressors on vent FiO2 45 % + low grade temps T amx 100.8 WBC up to 15 K no BMs Antibiotics: azithro azactam flagyl vanco Allergies/Adverse Reactions: Allergies penicillin G Allergy (Severe, Verified 01/31/18 02:06) UNKNOWN Sulfa (Sulfonamide Antibiotics) Allergy (Severe, Verified 01/31/18 02:06) UNKNOWN ciprofloxacin Adverse Reaction (Verified 02/03/18 11:14) unknown Objective Vital Signs 02/02/18 12:51 02/02/18 13:00 02/02/18 16:00 Temperature 100.0 F H Pulse Rate 82 69 Respiratory Rate 16 16 Blood Pressure 100/52 L Pulse Oximetry 100 100 02/02/18 16:15 02/02/18 19:00 02/02/18 20:00 Temperature 100.8 F H Pulse Rate 67 67 Respiratory Rate 16 16 Blood Pressure 114/66 Pulse Oximetry 100 100 02/02/18 20:34 02/02/18 21:55 02/03/18 00:00 Temperature 100.6 F H Pulse Rate 65 Respiratory Rate 16 16 Blood Pressure 110/55 L Pulse Oximetry 100 100 100 02/03/18 00:07 02/03/18 01:37 EDT 02/03/18 03:35 Temperature Pulse Rate 62 Respiratory Rate 16 19 Blood Pressure Pulse Oximetry 100 94 L 02/03/18 04:00 02/03/18 07:43 Temperature 99.7 F H Pulse Rate 78 Respiratory Rate 16 16 Blood Pressure 154/83 H Pulse Oximetry 100 100 Intake & Output 02/02/18 02/03/18 02/03/18 19:59 06:59 18:59 Intake Total 870 / 870 Output Total Balance 870 / 870 Weight Intake: IV 800 / 800 Heparin/D5W 25,000 U/250 mL 25, 000 unit In 250 ml @ Per Protocol IV.CONT TITRATE PRN Rx #:[id number] Neosynephrine Inj 40 MG In NS Inj 496 ML @ 40 MCG/MIN 30 mls/ hr IV.CONT TITRATE PRN Rx#: [id number] Diprivan 1000 mg/100 ml Inj 1, 100 / 100 000 mg In 100 ml @ 5 MCG/KG/MIN 2.55 mls/hr IV.CONT TITRATE PRN Rx#:[id number] NS Inj 500 ML @ 30 mls/hr IV. 500 / 500 CONT .[id number] [facility] Rx#:[id number] Azithromycin Inj 500 MG In NS Inj 250 ML @ 250 mls/hr IV.SIG Q24H [facility] Rx#:[id number] Azactam Inj 2,000 GM In NS Inj 100 / 100 100 ML @ 200 mls/hr IV.SIG Q6H [facility] Rx#:[id number] Vancomycin Inj 1,000 MG In NS Inj 250 ML @ 250 mls/hr IV.SIG Q24H [facility] Rx#:[id number] Flagyl 500 MG Inj 100 ML @ 100 100 / 100 mls/hr IV.SIG Q8H [facility] Rx#: [id number] Tube Feeding Tube Irrigant Water Bolus Amount 70 / 70 Output: Urine Amount (Catheter) Indwelling Temp Sensing Catheter Gastric Drainage Orogastric Tube Other: Date of Last Bowel Movement # Bowel Movements 02/02/18 23:05 Blood - Peripheral Aerobic Blood Culture - Preliminary No growth in 1 day 02/02/18 23:05 Blood - Peripheral Anaerobic Blood Culture - Final QNS - See aerobic report. 01/31/18 21:38 Blood - Peripheral Aerobic Blood Culture - Preliminary No growth in 3 days 01/31/18 21:38 Blood - Peripheral Anaerobic Blood Culture - Preliminary No growth in 3 days 01/31/18 21:43 Blood - Peripheral Aerobic Blood Culture - Preliminary No growth in 3 days 01/31/18 21:43 Blood - Peripheral Anaerobic Blood Culture - Preliminary No growth in 3 days 02/03/18 02:37 Blood - Peripheral Aerobic Blood Culture - Pending 02/03/18 02:37 Blood - Peripheral Anaerobic Blood Culture - Pending 02/02/18 12:45 Sputum - Endotracheal Gram Stain - Pending 02/02/18 12:45 Sputum - Endotracheal Sputum Culture - Pending 02/02/18 09:00 Clean Catch Urine Urine Culture - Pending 01/31/18 22:30 Nasal Wash Influenza Types A,B Antigen - Final Negative for FLU A and B antigen Infection due to influenza A or B cannot be ruled out since the antigen present in the sample may be below the detection limit of the test. Lab - Hematology Results 02/02/18 02/03/18 05:20 02:50 WBC 12.5 H 15.2 H RBC 3.87 L 4.40 Hgb 11.3 L 12.8 Hct 33.9 L 38.7 MCV 87.8 88.0 MCH 29.3 29.2 MCHC 33.4 33.2 RDW 16.3 16.3 Plt Count 143 L 209 D MPV 11.2 H 10.4 Prelim Diff (Auto) Manual diff required Neut % (Auto) 74.8 H Lymph % (Auto) 12.8 [place] % (Auto) 9.5 H Eos % (Auto) 1.4 Baso % (Auto) 1.5 Neut # (Auto) 11.3 H Lymph # (Auto) 1.9 [place] # (Auto) 1.4 H Eos # (Auto) 0.2 Baso # (Auto) 0.2 WBC Differential Manual diff final . Seg Neuts % (Manual) 77 H Band Neuts % (Manual) 8 H Lymphocytes % (Manual) 6 L Monocytes % (Manual) 7 Eosinophils % (Manual) 2 Abs Neuts (Manual) 10.6 H Differential Comment . Auto diff final Toxic Granulation 1+ H Platelet Estimate Low L Platelet Morphology Enlarged H Lab - Chemistry Results 02/01/18 02/01/18 02/02/18 17:35 20:37 05:20 Sodium 137 Potassium 4.6 Chloride 104 Carbon Dioxide 24.1 Anion Gap 9 BUN 29 H Creatinine 1.27 H Estimated GFR 40 L POC Glucose 298 H 260 H Random Glucose 207 H Lactic Acid Calcium 8.5 Magnesium Total Creatine Kinase CK-MB (CK-2) CK-MB (CK-2) % Troponin I B-Natriuretic Peptide 02/02/18 02/02/18 02/02/18 05:20 06:30 09:26 Sodium Potassium Chloride Carbon Dioxide Anion Gap BUN Creatinine Estimated GFR POC Glucose 334 H 365 H Random Glucose Lactic Acid Calcium Magnesium Total Creatine Kinase CK-MB (CK-2) CK-MB (CK-2) % Troponin I B-Natriuretic Peptide 622 H 02/02/18 02/02/18 02/02/18 13:48 15:27 17:18 Sodium Potassium Chloride Carbon Dioxide Anion Gap BUN Creatinine Estimated GFR POC Glucose 410 H 340 H Random Glucose Lactic Acid 1.8 Calcium Magnesium Total Creatine Kinase CK-MB (CK-2) CK-MB (CK-2) % Troponin I B-Natriuretic Peptide 02/02/18 02/02/18 02/02/18 18:12 18:32 20:04 Sodium Potassium Chloride Carbon Dioxide Anion Gap BUN Creatinine Estimated GFR POC Glucose 283 H 224 H Random Glucose Lactic Acid Calcium Magnesium Total Creatine Kinase CK-MB (CK-2) CK-MB (CK-2) % Troponin I 15.80 H* D B-Natriuretic Peptide 02/02/18 02/02/18 02/02/18 20:59 22:22 23:15 Sodium Potassium Chloride Carbon Dioxide Anion Gap BUN Creatinine Estimated GFR POC Glucose 204 H 199 H 164 H Random Glucose Lactic Acid Calcium Magnesium Total Creatine Kinase CK-MB (CK-2) CK-MB (CK-2) % Troponin I B-Natriuretic Peptide 02/03/18 02/03/18 02/03/18 00:12 01:28 EST 02:13 Sodium Potassium Chloride Carbon Dioxide Anion Gap BUN Creatinine Estimated GFR POC Glucose 165 H 143 H 142 H Random Glucose Lactic Acid Calcium Magnesium Total Creatine Kinase CK-MB (CK-2) CK-MB (CK-2) % Troponin I B-Natriuretic Peptide 02/03/18 02/03/18 02/03/18 02:37 02:50 02:50 Sodium 138 Potassium 4.2 Chloride 106 Carbon Dioxide 22.3 Anion Gap 10 BUN 39 H Creatinine 1.77 H Estimated GFR 27 L POC Glucose Random Glucose 156 H Lactic Acid Calcium 8.6 Magnesium 2.2 Total Creatine Kinase 579 H CK-MB (CK-2) 11.7 H CK-MB (CK-2) % 2.0 Troponin I 16.90 H* D B-Natriuretic Peptide 858 H 02/03/18 02/03/18 02/03/18 02:58 04:07 05:54 Sodium Potassium Chloride Carbon Dioxide Anion Gap BUN Creatinine Estimated GFR POC Glucose 164 H 169 H 207 H Random Glucose Lactic Acid Calcium Magnesium Total Creatine Kinase CK-MB (CK-2) CK-MB (CK-2) % Troponin I B-Natriuretic Peptide 02/03/18 02/03/18 02/03/18 06:42 08:15 09:14 Sodium Potassium Chloride Carbon Dioxide Anion Gap BUN Creatinine Estimated GFR POC Glucose 182 H 161 H Random Glucose Lactic Acid Calcium Magnesium Total Creatine Kinase 429 H CK-MB (CK-2) 8.6 H CK-MB (CK-2) % 2.0 Troponin I 10.20 H* D B-Natriuretic Peptide 02/03/18 11:08 Sodium Potassium Chloride Carbon Dioxide Anion Gap BUN Creatinine Estimated GFR POC Glucose 185 H Random Glucose Lactic Acid Calcium Magnesium Total Creatine Kinase CK-MB (CK-2) CK-MB (CK-2) % Troponin I B-Natriuretic Peptide Imaging: ITS Impressions Abdomen/Bladder Ultrasound 02/02/18 00:00 CONCLUSION: 1. Increased renal echogenicity typical of chronic parenchymal changes. 2. No evidence of acute obstructive uropathy. 3. Small bilateral benign-appearing cysts. Abdomen/Pelvis CT 02/02/18 00:00 CONCLUSION: 1. No acute abnormalities are seen in the abdomen or pelvis. 2. Mildly atrophic left kidney with vascular calcifications. 3. Aortoiliac atherosclerosis. No aneurysm. 4. Cholelithiasis. 5. Bilateral small pleural effusions and mild to moderate basilar atelectasis. 6. Coronary artery calcification. 7. Nonspecific mass of the visualized left breast. Last mammogram in our system was 2012. Up-to-date bilateral mammography with a diagnostic left breast mammogram recommended. Chest X-Ray 02/03/18 00:00 CONCLUSION: Endotracheal tube tip is a bit deep Improving aeration Physical Exam: GENERAL: NAD sedated, int'd SKIN: Warm and dry. HEAD: Atraumatic. Normocephalic. EYES: Pupils equal and round. No scleral icterus. No injection or drainage. ENT: No nasal bleeding or discharge. Mucous membranes pink and moist. NECK: Trachea midline. No JVD. CARDIOVASCULAR: irregular rate and rhythm. RESPIRATORY: No accessory muscle use. Clear to auscultation. Breath sounds equal bilaterally. GASTROINTESTINAL: Abdomen soft, non-tender, mildly distended. Hepatic and splenic margins not palpable. MUSCULOSKELETAL: Extremities without clubbing, cyanosis, or edema. No obvious deformities. NEUROLOGICAL: sedated, unresponsive PSYCHIATRIC: unbale to assess Assessment and Plan - Plan NSTEMI ? 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
--- NOTE | 2018-02-03 11:45 | P.PNCC ---
Subjective Subjective Remarks/Hospital Course: I have been asked to see emergently this 79-year-old female with a history of diabetes, anxiety, depression, history of rectal cancer in remission, CAD status post PCI, recent admission on 01/28 for non-ST elevation MA discharged on 01/29. Presented 01/31 with acute onset of dull pressure-like nonradiating chest pain resolved with aspirin and sublingual nitroglycerin. On arrival to the ICU she is clearly markedly labored respiratory effort and hypoxemia despite a nonrebreathing mask. She required intubation immediately upon arrival to get oxygen saturation greater than 90% and mechanical and ventilation with elevated end expiratory pressure was required to maintain adequate oxygenation. She appears to be undergoing a stuttering infarct and remains on a heparin drip. Fever on unknown origin, worsening lung infiltrates however. Start abx, adjust per ID service. 02/03: Improved oxygenation on chemical ventilation with elevated end expiratory pressure. Labs consistent with left heart dysfunction and acute myocardial infarction. Spontaneous urine output has improved modestly. Objective Vital Signs / I&O: Vital Signs 02/02/18 12:51 02/02/18 13:00 02/02/18 16:00 Temperature 100.0 F H Pulse Rate 82 69 Respiratory Rate 16 16 Blood Pressure 100/52 L Pulse Oximetry 100 100 02/02/18 16:15 02/02/18 19:00 02/02/18 20:00 Temperature 100.8 F H Pulse Rate 67 67 Respiratory Rate 16 16 Blood Pressure 114/66 Pulse Oximetry 100 100 02/02/18 20:34 02/02/18 21:55 02/03/18 00:00 Temperature 100.6 F H Pulse Rate 65 Respiratory Rate 16 16 Blood Pressure 110/55 L Pulse Oximetry 100 100 100 02/03/18 00:07 02/03/18 01:37 EDT 02/03/18 03:35 Temperature Pulse Rate 62 Respiratory Rate 16 19 Blood Pressure Pulse Oximetry 100 94 L 02/03/18 04:00 02/03/18 07:43 Temperature 99.7 F H Pulse Rate 78 Respiratory Rate 16 16 Blood Pressure 154/83 H Pulse Oximetry 100 100 Intake & Output 02/02/18 02/03/18 02/03/18 19:59 06:59 18:59 Intake Total 870 / 870 Output Total Balance 870 / 870 Weight Intake: IV 800 / 800 Heparin/D5W 25,000 U/250 mL 25, 000 unit In 250 ml @ Per Protocol IV.CONT TITRATE PRN Rx #:[id number] Neosynephrine Inj 40 MG In NS Inj 496 ML @ 40 MCG/MIN 30 mls/ hr IV.CONT TITRATE PRN Rx#: [id number] Diprivan 1000 mg/100 ml Inj 1, 100 / 100 000 mg In 100 ml @ 5 MCG/KG/MIN 2.55 mls/hr IV.CONT TITRATE PRN Rx#:[id number] NS Inj 500 ML @ 30 mls/hr IV. 500 / 500 CONT .[id number] [facility] Rx#:[id number] Azithromycin Inj 500 MG In NS Inj 250 ML @ 250 mls/hr IV.SIG Q24H [facility] Rx#:[id number] Azactam Inj 2,000 GM In NS Inj 100 / 100 100 ML @ 200 mls/hr IV.SIG Q6H [facility] Rx#:[id number] Vancomycin Inj 1,000 MG In NS Inj 250 ML @ 250 mls/hr IV.SIG Q24H [facility] Rx#:[id number] Flagyl 500 MG Inj 100 ML @ 100 100 / 100 mls/hr IV.SIG Q8H [facility] Rx#: [id number] Tube Feeding Tube Irrigant Water Bolus Amount 70 / 70 Output: Urine Amount (Catheter) Indwelling Temp Sensing Catheter Gastric Drainage Orogastric Tube Other: Date of Last Bowel Movement # Bowel Movements Result Diagrams: 02/03/18 02:50 02/03/18 02:50 Objective Remarks: Narrative: General: Elderly woman lightly sedated, on mechanical ventilation HEENT: Oral tracheal intubation, oral gastric tube in place for decompression of the GI tract. Start tube feedings if residual small. Cardiovascular: Irregular irregular rhythm, rate 88 - 112, neck veins are full Respiratory: Crackles persist, no wheezing, acceptable bilateral air movement Abdomen: Soft, nontender, nondistended, few bowel sounds, no guarding Extremities: Warm, adequately perfused, trace edema lower extremities Neuro: Sedated for ventilator synchrony. Withdraws 4 limbs to stimulation. Seen to move 4 limbs with purpose. Opens eyes to loud voice. Breathes spontaneously over ventilator. Assessment and Plan - Problem List (1) Acute hypoxemic respiratory failure Code(s): J96.01 - Acute respiratory failure with hypoxia Status: Acute (2) Pulmonary edema cardiac cause Code(s): I50.1 - Left ventricular failure, unspecified Status: Acute (3) Acute myocardial infarction Code(s): I21.9 - Acute myocardial infarction, unspecified Status: Acute (4) Acute kidney injury Code(s): N17.9 - Acute kidney failure, unspecified Status: Acute (5) Type 2 diabetes mellitus Code(s): E11.9 - Type 2 diabetes mellitus without complications Status: Chronic - Assessment and Plan Plan: Plan: Acute hypoxemic respiratory failure -Mechanical ventilation with elevated end expiratory pressure -Diuretics as tolerated, follow prerenal pattern -Propofol sedation Acute myocardial infarction -Continue heparin drip and antiplatelet therapy -Continue to trend troponin Acute kidney injury -Avoid nephrotoxins -Attempt to gingerly diuresis without exacerbating renal injury -Hold diuretics today in view of contrast agent Diabetes mellitus, poorly controlled -Hold Levemir twice daily -Hold medium correction sliding scale insulin protocol -Insulin drip initiated yesterday afternoon because of poor glucose control with intermittent agents. Prophylaxis -Heparin drip -Pepcid Overall impression: This woman is critically ill with pulmonary edema of cardiac etiology. She has required intubation and mechanical ventilation with elevated airway pressures because of the severe oxygen diffusion impairment. With improved oxygenation hopefully we can get better heart rate control; she undoubtedly has some element of diastolic dysfunction at her age. Considering all aspects of her present physiological state her prognosis is poor and her risk of early is high. Cardiology service and family have decided to proceed with cardiac catheterization and intervention if practical. Critical care time 38 minutes
[2018-02-03 12:26] LABS: Hemoglobin A1c 7.8 % (4.3-6.0)
[2018-02-03] MEDS ORDERED: Lidocaine PF 1% Inj 30 ML Vial ONE (12:37)
[2018-02-03] MEDS ORDERED: Misc Info for Pharmacy OTHER STA (13:46)
--- NOTE | 2018-02-03 14:13 | P.PNNP ---
Subjective Interval history: Patient on ventilator Physical Exam Vital signs: Vital Signs 02/02/18 16:00 02/02/18 16:15 02/02/18 19:00 Temperature 100.0 F H Pulse Rate 69 67 Respiratory Rate 16 16 Blood Pressure 100/52 L Pulse Oximetry 100 100 02/02/18 20:00 02/02/18 20:34 02/02/18 21:55 Temperature 100.8 F H Pulse Rate 67 Respiratory Rate 16 16 Blood Pressure 114/66 Pulse Oximetry 100 100 100 02/03/18 00:00 02/03/18 00:07 02/03/18 01:37 EDT Temperature 100.6 F H Pulse Rate 65 62 Respiratory Rate 16 16 Blood Pressure 110/55 L Pulse Oximetry 100 100 02/03/18 03:35 02/03/18 04:00 02/03/18 07:43 Temperature 99.7 F H Pulse Rate 78 Respiratory Rate 19 16 16 Blood Pressure 154/83 H Pulse Oximetry 94 L 100 100 Intake & Output 02/02/18 02/03/18 02/03/18 19:59 06:59 18:59 Intake Total 970 / 970 Output Total 575 / 575 Balance 395 / 395 Weight Intake: IV 900 / 900 Heparin/D5W 25,000 U/250 mL 25, 000 unit In 250 ml @ Per Protocol IV.CONT TITRATE PRN Rx #:[id number] Neosynephrine Inj 40 MG In NS Inj 496 ML @ 40 MCG/MIN 30 mls/ hr IV.CONT TITRATE PRN Rx#: [id number] Diprivan 1000 mg/100 ml Inj 1, 100 / 100 000 mg In 100 ml @ 5 MCG/KG/MIN 2.55 mls/hr IV.CONT TITRATE PRN Rx#:[id number] NS Inj 500 ML @ 30 mls/hr IV. 500 / 500 CONT .[id number] [facility] Rx#:[id number] Azithromycin Inj 500 MG In NS Inj 250 ML @ 250 mls/hr IV.SIG Q24H [facility] Rx#:[id number] Azactam Inj 2,000 GM In NS Inj 200 / 200 100 ML @ 200 mls/hr IV.SIG Q6H [facility] Rx#:[id number] Vancomycin Inj 1,000 MG In NS Inj 250 ML @ 250 mls/hr IV.SIG Q24H [facility] Rx#:[id number] Flagyl 500 MG Inj 100 ML @ 100 100 / 100 mls/hr IV.SIG Q8H [facility] Rx#: [id number] Tube Feeding Tube Irrigant Water Bolus Amount 70 / 70 Output: Urine Amount (Catheter) 575 / 575 Indwelling Temp Sensing 575 / 575 Catheter Gastric Drainage Orogastric Tube Other: Date of Last Bowel Movement # Bowel Movements Narrative: General: Elderly woman in severe respiratory distress, agitated, confused HEENT: Extraocular movements are intact, frothy secretions in mouth Cardiovascular: Tachycardia, unable to hear heart tones over the sound of wheezing and bronchospasm Respiratory: Diffuse bilateral wheezes and crackles, acceptable bilateral air movement, labored respiration, tachypnea Abdomen: Soft, nontender, nondistended, normal bowel sounds, no guarding Extremities: Tepid, mottled, no edema 2+ distal pulses in bilateral upper and lower extremities Neuro: Confused, agitated, moving 4 limbs with strength. - Urinary Catheter Management Indwelling Temp Sensing Catheter Cath placed during this visit: no Assessment and Plan - Assessment (1) Acute kidney injury Code(s): N17.9 - Acute kidney failure, unspecified Status: Acute Plan: Patient may have suffered LOLIS due to iodinated contrast received on 01/28/18. In addition, there could be a component of renal hypoperfusion due to NSTEMI. Continue conservative management. Avoid nephrotoxic agents. Monitor urine output and renal function. Patient son-in-law neurosurgeon called and I have a long discussion with Dr. Mekhi Herrera [phone] yesterday Patient today has UTI gram-negative , aztreonam added by ID Getting IV fluid at KVO 20 cc an hour Blood pressure better on vasopressor Monitor intake and output, creatinine 1.[address] Pimentel (2) Type 2 diabetes mellitus Code(s): E11.9 - Type 2 diabetes mellitus without complications Status: Chronic Plan: insulin coverage to maintain blood glucose between 140 and 180. (3) Non-ST elevated myocardial infarction (non-STEMI) Code(s): I21.4 - Non-ST elevation (NSTEMI) myocardial infarction Status: Acute - Plan Cardiology on the case.
[2018-02-03] MEDS: Azithromycin Inj 500 MG in Sodium Chlor 0.9% Inj 250 ML IV.SIG SCH (14:33)
[2018-02-03] MEDS: Vancomycin Inj 1,000 MG in Sodium Chlor 0.9% Inj 250 ML IV.SIG SCH (16:06)
--- NOTE | 2018-02-03 16:27 | P.PNCA ---
Subjective Interval history: Events noted since admission Discussed with Dr. Noble yesterday and today Concern for continued cardiogenic shock, new ischemic cardiomyopathy with anterior wall infarct and runs of ventricular tachycardia Medications and Allergies Active Medications: Active Medications Acetaminophen (Tylenol) 500 mg PO Q4H PRN PRN Reason: FEVER > 100.4 F Last Admin: 02/03/18 04:00 Dose: 500 mg Al Hydroxide/Mg Hydroxide (Milk Of Magnesia Liq) 30 ml PO Q12H PRN PRN Reason: Mild Constipation Alprazolam (Xanax) 0.5 mg PO Q8H PRN PRN Reason: ANXIETY Last Admin: 02/02/18 05:26 Dose: 0.5 mg Aspirin (Ecotrin) 81 mg PO DAILY [facility] Last Admin: 02/03/18 08:32 Dose: 81 mg Atorvastatin Calcium (Lipitor) 40 mg PO HS [facility] Last Admin: 02/02/18 21:47 Dose: 40 mg Bisacodyl (Dulcolax Supp) 10 mg RECTAL DAILY PRN PRN Reason: SEVERE CONSITIPATION Chlorhexidine Gluconate (Peridex 0.12% Oral Kit) 15 ml OROPHARYNG BID@0800, 1999 [facility] Last Admin: 02/03/18 08:34 Dose: 15 ml Clopidogrel Bisulfate (Plavix) 75 mg PO DAILY [facility] Last Admin: 02/03/18 08:32 Dose: 75 mg Dextrose (D50w Vial) 50 ml IV.PUSH UNSCH PRN PRN Reason: PER HYPOGLYCEMIA PROTOCOL Famotidine (Pepcid Pf Inj) 10 mg IV.PUSH Q12HR [facility] Last Admin: 02/03/18 08:32 Dose: 10 mg Glucagon (Glucagon Inj) 1 mg OTHER PRN PRN PRN Reason: for Hypoglycemia Protocol Sodium Chloride (Ns Inj) 1,000 mls @ 60 mls/hr IV.CONT .[id number] [facility] Last Admin: 02/03/18 00:37 Dose: Not Given Nitroglycerin/Dextrose (Nitroglycerin Drip Premix) 50 mg in 250 mls @ 1.5 mls/ hr IV.CONT TITRATE PRN; Protocol PRN Reason: Per Protocol Last Titration: 02/01/18 18:42 Dose: 10 mcg/min, 3 mls/hr Propofol (Diprivan 1000 Mg/100 Ml Inj) 1,000 mg in 100 mls @ 2.55 mls/hr IV.CONT TITRATE PRN; Protocol PRN Reason: Per Protocol Last Admin: 02/03/18 11:20 Dose: 20 mcg/kg/min, 10.2 mls/hr Azithromycin 500 mg/ Sodium (Chloride) 250 mls @ 250 mls/hr IV.SIG Q24H [facility] Last Infusion: 02/03/18 16:07 Dose: Infused Vancomycin HCl 1,000 mg/ (Sodium Chloride) 250 mls @ 250 mls/hr IV.SIG Q24H [facility] Last Admin: 02/03/18 16:06 Dose: 250 mls/hr Insulin Human Regular 100 unit (/ Sodium Chloride) 100 mls @ 0 mls/hr IV.CONT TITRATE PRN; Protocol PRN Reason: See protocol Last Titration: 02/03/18 14:32 Dose: 2 units/hr, 2 mls/hr Sodium Chloride (Ns Inj) 500 mls @ 30 mls/hr IV.CONT .[id number] [facility] Last Admin: 02/03/18 11:32 Dose: 30 mls/hr Metronidazole/Sodium Chloride (Flagyl 500 Mg Inj) 100 mls @ 100 mls/hr IV.SIG Q8H [facility] Last Infusion: 02/03/18 16:07 Dose: Infused Aztreonam 2,000 gm/ Sodium (Chloride) 100 mls @ 200 mls/hr IV.SIG Q6H [facility] Last Infusion: 02/03/18 12:12 Dose: Infused Phenylephrine HCl 40 mg/ (Sodium Chloride) 500 mls @ 30 mls/hr IV.CONT TITRATE PRN; Protocol PRN Reason: See Protocol Last Titration: 02/03/18 09:05 Dose: 10 mcg/min, 7.5 mls/hr Lactulose (Lactulose Liq) 30 ml PO DAILY PRN PRN Reason: SEVERE CONSITIPATION Metoprolol Tartrate (Lopressor) 25 mg PO TID [facility] Last Admin: 02/03/18 14:33 Dose: 25 mg Miscellaneous (Pill Splitter) 1 each OTHER UNSCH PRN PRN Reason: SEE LABEL COMMENTS Miscellaneous Information ([facility] Ordered Lab Info) 0 each OTHER ONCE ONE Stop: 02/05/18 14:46 Miscellaneous Medication () 1 each OROPHARYNG 0000,0400,1200,1600 [facility] Last Admin: 02/03/18 11:21 Dose: 1 each Morphine Sulfate (Morphine Inj) 2 mg IV.PUSH Q20M PRN PRN Reason: PAIN 1-10 Last Admin: 02/01/18 02:53 Dose: 2 mg Nitroglycerin (Nitro-Bid 2% Oint) 0.5 inch TOPICAL Q6HR [facility] Last Admin: 02/03/18 11:25 Dose: Not Given Pharmacy Profile Note (Vancomycin Consult Pharmacy) 1 each OTHER UNSCH PRN PRN Reason: Pharmacy to dose Sennosides (Senokot) 17.2 mg PO Q12H PRN PRN Reason: Moderate Constipation Sodium Chloride (Ns Flush) 2 ml IV.FLUSH BID [facility] Sodium Chloride (Ns Flush) 2 ml IV.FLUSH UNSCH PRN PRN Reason: FLUSH AFTER USING IV ACCESS Terbutaline Sulfate (Brethine Inj) 1 mg SQ UNSCH PRN PRN Reason: For Extravasation Tramadol HCl (Ultram) 50 mg PO Q6H PRN PRN Reason: Pain 1-10 Last Admin: 02/02/18 05:25 Dose: 50 mg Whey (Beneprotein Powder) 1 packet G-TUBE TID [facility] Last Admin: 02/03/18 14:33 Dose: Not Given Allergies Allergy/AdvReac Type Severity Reaction Status Date / Time penicillin G Allergy Severe UNKNOWN Verified 01/31/18 02:06 Sulfa (Sulfonamide Allergy Severe UNKNOWN Verified 01/31/18 02:06 Antibiotics) ciprofloxacin AdvReac unknown Verified 02/03/18 11:14 Home Medications Medication Instructions Recorded Confirmed Type alprazolam 0.5 mg PO Q8HR PRN 01/31/18 01/31/18 History tramadol 50 mg PO Q6H PRN 01/31/18 01/31/18 History Physical Exam Vital signs: Vital Signs 02/02/18 19:00 02/02/18 20:00 02/02/18 20:34 Temperature 100.8 F H Pulse Rate 67 67 Respiratory Rate 16 16 Blood Pressure 114/66 Pulse Oximetry 100 100 02/02/18 21:55 02/03/18 00:00 02/03/18 00:07 Temperature 100.6 F H Pulse Rate 65 Respiratory Rate 16 16 Blood Pressure 110/55 L Pulse Oximetry 100 100 100 02/03/18 01:37 EDT 02/03/18 03:35 02/03/18 04:00 Temperature 99.7 F H Pulse Rate 62 78 Respiratory Rate 19 16 Blood Pressure 154/83 H Pulse Oximetry 94 L 100 02/03/18 07:00 02/03/18 07:43 02/03/18 08:00 Temperature 99.3 F 99.3 F Pulse Rate 78 81 Respiratory Rate 16 16 16 Blood Pressure 150/73 H Pulse Oximetry 100 100 100 02/03/18 08:45 02/03/18 10:00 02/03/18 11:00 Temperature 99.5 F 99.5 F 99.9 F H Pulse Rate 82 77 77 Respiratory Rate 16 16 16 Blood Pressure 125/60 97/54 L Pulse Oximetry 100 100 100 02/03/18 12:00 02/03/18 14:00 02/03/18 14:15 Temperature 100.0 F H 99.5 F 99.3 F Pulse Rate 82 87 86 Respiratory Rate 16 16 16 Blood Pressure 96/51 L Pulse Oximetry 100 100 100 02/03/18 14:30 02/03/18 14:45 02/03/18 15:00 Temperature 99.3 F 99.3 F 99.5 F Pulse Rate 81 83 82 Respiratory Rate 17 16 16 Blood Pressure Pulse Oximetry 100 100 100 02/03/18 15:05 02/03/18 15:15 02/03/18 15:30 Temperature 99.5 F 99.5 F Pulse Rate 77 79 Respiratory Rate 16 16 Blood Pressure Pulse Oximetry 100 100 100 02/03/18 15:44 02/03/18 15:45 02/03/18 16:00 Temperature 99.7 F H 99.7 F H Pulse Rate 76 80 Respiratory Rate 16 16 20 Blood Pressure Pulse Oximetry 100 100 100 Intake & Output 02/02/18 02/03/18 02/03/18 19:59 06:59 18:59 Intake Total 1420 / 1420 Output Total 575 / 575 Balance 845 / 845 Weight Intake: IV 1300 / 1300 Heparin/D5W 25,000 U/250 mL 25, 50 / 50 000 unit In 250 ml @ Per Protocol IV.CONT TITRATE PRN Rx #:[id number] Neosynephrine Inj 40 MG In NS Inj 496 ML @ 40 MCG/MIN 30 mls/ hr IV.CONT TITRATE PRN Rx#: [id number] Diprivan 1000 mg/100 ml Inj 1, 100 / 100 000 mg In 100 ml @ 5 MCG/KG/MIN 2.55 mls/hr IV.CONT TITRATE PRN Rx#:[id number] NS Inj 500 ML @ 30 mls/hr IV. 500 / 500 CONT .[id number] [facility] Rx#:[id number] Azithromycin Inj 500 MG In NS 250 / 250 Inj 250 ML @ 250 mls/hr IV.SIG Q24H [facility] Rx#:[id number] Azactam Inj 2,000 GM In NS Inj 200 / 200 100 ML @ 200 mls/hr IV.SIG Q6H [facility] Rx#:[id number] Vancomycin Inj 1,000 MG In NS Inj 250 ML @ 250 mls/hr IV.SIG Q24H [facility] Rx#:[id number] Flagyl 500 MG Inj 100 ML @ 100 200 / 200 mls/hr IV.SIG Q8H [facility] Rx#: [id number] Tube Feeding Tube Irrigant Water Bolus Amount 120 / 120 Output: Urine Amount (Catheter) 575 / 575 Indwelling Temp Sensing 575 / 575 Catheter Gastric Drainage Orogastric Tube Other: Date of Last Bowel Movement 01/31/18 # Bowel Movements Narrative: GENERAL: Intubated and sedation SKIN: Cool and dry HEAD: Atraumatic. Normocephalic. EYES: Pupils equal and round. No scleral icterus. No injection or drainage. ENT: No nasal bleeding or discharge. Mucous membranes pink and moist. NECK: Trachea midline. No JVD. ET tube in place CARDIOVASCULAR: Regular rate and rhythm. RESPIRATORY: No accessory muscle use. Crackles/rales noted bilaterally. GASTROINTESTINAL: Abdomen soft, non-tender, nondistended. Hepatic and splenic margins not palpable. MUSCULOSKELETAL: Extremities without clubbing, cyanosis, or edema. No obvious deformities. NEUROLOGICAL: Sedated on the vent - Urinary Catheter Management Indwelling Temp Sensing Catheter Cath placed during this visit: no Results 02/03/18 02:50 02/03/18 02:50 Cardiac Enzymes 02/02/18 02/02/18 02/03/18 Range/Units 05:20 18:12 02:37 CK-MB (CK-2) (0.5-3.6) ng/mL Troponin I 15.80 H* D (0.02-0.05) ng/mL B-Natriuretic Peptide 622 H 858 H (0-100) pg/mL 02/03/18 02/03/18 Range/Units 02:50 08:15 CK-MB (CK-2) 11.7 H 8.6 H (0.5-3.6) ng/mL Troponin I 16.90 H* D 10.20 H* D (0.02-0.05) ng/mL B-Natriuretic Peptide (0-100) pg/mL Coagulation 02/02/18 02/02/18 02/02/18 Range/Units 05:20 05:20 12:05 APTT 38.5 H 45.5 H (23.4-31.7) sec B-Natriuretic Peptide 622 H (0-100) pg/mL 02/02/18 02/03/18 02/03/18 Range/Units 18:12 02:37 02:37 APTT 41.7 H 35.9 H (23.4-31.7) sec B-Natriuretic Peptide 858 H (0-100) pg/mL CBC 02/02/18 02/03/18 Range/Units 05:20 02:50 WBC 12.5 H 15.2 H (4.0-11.0) th/mm3 RBC 3.87 L 4.40 (4.00-5.30) mil/mm3 Hgb 11.3 L 12.8 (11.6-15.3) gm/dL Hct 33.9 L 38.7 (35.0-46.0) % Plt Count 143 L 209 D (150-450) th/mm3 Neut # (Auto) 11.3 H (1.8-7.7) th/mm3 Lymph # (Auto) 1.9 (1.0-4.8) th/mm3 [place] # (Auto) 1.4 H (0.0-0.9) th/mm3 Eos # (Auto) 0.2 (0.0-0.4) th/mm3 Baso # (Auto) 0.2 (0.0-0.2) th/mm3 Comprehensive Metabolic Panel 02/02/18 02/03/18 Range/Units 05:20 02:50 Sodium 137 138 (136-145) meq/L Potassium 4.6 4.2 (3.5-5.1) meq/L Chloride 104 106 (98-107) meq/L Carbon Dioxide 24.1 22.3 (21.0-32.0) meq/L BUN 29 H 39 H (7-18) mg/dL Creatinine 1.27 H 1.77 H (0.50-1.00) mg/dL Calcium 8.5 8.6 (8.5-10.1) mg/dL Intake and Output 02/03/18 02/03/18 02/03/18 06:59 14:59 22:59 Intake Total 1070 / 1070 350 / 350 Output Total 575 / 575 Balance 495 / 495 350 / 350 Intake: IV 950 / 950 350 / 350 Heparin/D5W 25,000 U/250 mL 25, 50 / 50 000 unit In 250 ml @ Per Protocol IV.CONT TITRATE PRN Rx #:[id number] Neosynephrine Inj 40 MG In NS Inj 496 ML @ 40 MCG/MIN 30 mls/ hr IV.CONT TITRATE PRN Rx#: [id number] Diprivan 1000 mg/100 ml Inj 1, 100 / 100 000 mg In 100 ml @ 5 MCG/KG/MIN 2.55 mls/hr IV.CONT TITRATE PRN Rx#:[id number] NS Inj 500 ML @ 30 mls/hr IV. 500 / 500 CONT .[id number] [facility] Rx#:[id number] Azithromycin Inj 500 MG In NS 250 / 250 Inj 250 ML @ 250 mls/hr IV.SIG Q24H [facility] Rx#:[id number] Azactam Inj 2,000 GM In NS Inj 200 / 200 100 ML @ 200 mls/hr IV.SIG Q6H [facility] Rx#:[id number] Flagyl 500 MG Inj 100 ML @ 100 100 / 100 100 / 100 mls/hr IV.SIG Q8H [facility] Rx#: [id number] Tube Feeding Tube Irrigant Water Bolus Amount 120 / 120 Output: Urine Amount (Catheter) 575 / 575 Indwelling Temp Sensing 575 / 575 Catheter Other: Date of Last Bowel Movement 01/31/18 Weight - Imaging and Cardiology Imaging: Impressions Abdomen/Bladder Ultrasound 02/02/18 00:00 CONCLUSION: 1. Increased renal echogenicity typical of chronic parenchymal changes. 2. No evidence of acute obstructive uropathy. 3. Small bilateral benign-appearing cysts. Abdomen/Pelvis CT 02/02/18 00:00 CONCLUSION: 1. No acute abnormalities are seen in the abdomen or pelvis. 2. Mildly atrophic left kidney with vascular calcifications. 3. Aortoiliac atherosclerosis. No aneurysm. 4. Cholelithiasis. 5. Bilateral small pleural effusions and mild to moderate basilar atelectasis. 6. Coronary artery calcification. 7. Nonspecific mass of the visualized left breast. Last mammogram in our system was 2012. Up-to-date bilateral mammography with a diagnostic left breast mammogram recommended. Chest X-Ray 02/02/18 00:00 CONCLUSION: Worsening aeration Chest X-Ray 02/02/18 00:00 CONCLUSION: 1. Endotracheal tube and nasogastric tube in place. 2. Slight increase in hazy opacity at the right lung base. Patchy opacity left lung base partially visualized. Chest X-Ray 02/03/18 00:00 CONCLUSION: Endotracheal tube tip is a bit deep Improving aeration Assessment and Plan - Assessment (1) Frail elderly Code(s): R54 - Age-related physical debility Status: Acute (2) Acute myocardial infarction Code(s): I21.9 - Acute myocardial infarction, unspecified Status: Acute (3) Febrile illness Code(s): R50.9 - Fever, unspecified Status: Acute (4) Acute kidney injury Code(s): N17.9 - Acute kidney failure, unspecified Status: Acute (5) Atrial fibrillation Code(s): I48.91 - Unspecified atrial fibrillation Status: Acute (6) Cardiogenic shock Code(s): R57.0 - Cardiogenic shock Status: Acute (7) Acute hypoxemic respiratory failure Code(s): J96.01 - Acute respiratory failure with hypoxia Status: Acute (8) Pulmonary edema cardiac cause Code(s): I50.1 - Left ventricular failure, unspecified Status: Acute (9) Acute myocardial infarction Code(s): I21.9 - Acute myocardial infarction, unspecified Status: Acute - Plan 1) Acute myocardial infarction anteriorly 2) Cardiogenic shock 3) NSVT 4) LOLIS Discussed at length with the granddaughter and [id number] over the phone. With the rise in troponin, NSVT and continued cardiogenic shock, concern for continued ischemia. Don't think she would recover without intervention. They understand that any intervention would be high risk, and ultimately may not be helpful, but it's her only chance. Also has rise of creatinine placing her at higher risk of kidney injury or acute renal failure which they understand. They said she would want everything done if it would help. Plan for LHC with as little contrast as possible. Intervention if feasible. If found to have an occlusion or complex disease, then most likely stay with medical management. Granddaughter and [id number] in total agreement with plan, understand risks, benefits and alternatives.
[2018-02-03] MEDS ORDERED: Atropine Inj 1 MG/10 ML Syringe ONE (16:36)
--- NOTE | 2018-02-03 19:13 | MA ---
cc: Gonzalez Peralta DO DATE: 02/03/2018 PROCEDURE PERFORMED Left heart catheterization, coronary angiogram, sedation 45 minutes, Schlater drug-eluting stent (2.25 x 12) to left anterior descending postdilated to 2.6 mm. PREPROCEDURE DIAGNOSES: Acute anterior wall myocardial infarction, continued ischemia, nonsustained ventricular tachycardia, cardiogenic shock. POSTPROCEDURE DIAGNOSES: Acute anterior wall myocardial infarction with continued ischemia, cardiogenic shock and nonsustained ventricular tachycardia, status post Schlater drug-eluting stent (2.25 x 12) to mid left anterior descending postdilated to 2.6 mm. MEDICATIONS: 1. Propofol drip. 2. Heparin 6300 units. CONTRAST USED: 75 mL. FLUOROSCOPY: 9.5 minutes. MODERATE SEDATION: 45 minutes. FRAILTY SCORE: 5. ESTIMATED BLOOD LOSS: 10 mL. PROCEDURAL SUMMARY: Olimpia Arvizu is an 87-year-old female who originally presented last week and was found to have an elevated troponin. She was attempted to be treated medically. She then presented again on 01/31/2018 and there was concern for further myocardial infarction of her anterior wall, which was treated medically. She then went into cardiogenic shock with pulmonary edema and elevation of her troponins. She continues to be in cardiogenic shock, and with the further concern of continued ischemia as well as nonsustained ventricular tachycardia, I was asked to see her for consideration of a cardiac catheterization. I had a long discussion with the granddaughter and [id number] about risks of the procedure. Ultimately, I believe that if nothing is done at this time, she will never recover. They understand overall the risks, benefits and alternatives. Consent was obtained from the granddaughter. Lastly, they understand that even if anything is found and fixed it does not mean that she will recover. She was brought to the lab and prepped in the usual sterile fashion. The right femoral artery was accessed using a modified Seldinger technique and placement of a 5 Kazakh sheath. This is easily aspirated and flushed. A JR4 was advanced over a J-wire to the ascending aorta and across the aortic valve for measurement of left ventricular pressure. This was pulled back across the aortic valve showing no significant gradient of aortic stenosis. The JR4 was used for selective angiography of the right coronary artery system. This was exchanged out for a JL3.5, which is used for selective angiography of the left coronary artery system. Please see notes below for intervention. FINDINGS: LEFT MAIN: Short vessel which trifurcates early. No significant disease. LEFT ANTERIOR DESCENDING: Moderate size vessel with 30% disease in the proximal portion. Mid portion has a stent which is patent, and just proximal to this, there is a 95% lesion. It supplies 2 diagonals with the first one being occluded and the second one being widely patent. RAMUS: Moderate size vessel with overall tortuosity and 30% disease throughout. LEFT CIRCUMFLEX: Moderate size vessel with a 90% lesion in the distal portion of an overall small vessel. There are no obtuse marginals coming off of it and most likely has at least 1 occluded obtuse marginal. RIGHT CORONARY ARTERY: Moderate size vessel with a long stent patent in the mid portion with probable 60% in-stent restenosis in the distal portion. It supplies a posterolateral branch, which is overall small, and a posterior descending branch, which has diffuse 30% disease. LEFT VENTRICULAR END-DIASTOLIC PRESSURE: 23. INTERVENTION: Due to the continued ischemia with elevated troponins, cardiogenic shock and nonsustained ventricular tachycardia, I felt that intervention on the LAD was appropriate. The 5 Kazakh sheath was exchanged for a 6 Kazakh sheath. Heparin was given as an anticoagulant. An EBU 3.5 guide was engaged in the left main. A BMW wire was placed distally into the LAD. A compliant balloon (2 x 10) was used to predilate the lesion. An Schlater drug-eluting stent (2.25 x 12) was then placed over the lesion and inflated. A noncompliant balloon (2.5 x 8) was then used to post dilate the overlap with the previous stent distally as well as the stent to 2.6 mm. Final angiogram showed a well-opposed stent with no perforations or dissections. The guide was removed. Sheath was sutured in place with a plan to remove once ACT values were appropriate. The patient has already been on aspirin and Plavix for a number of days and does not need reloaded. 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 INTERVENTIONAL DATA: Mid LAD, lesion length 10, pre-CATHY 2, post-CATHY 3, post-stenosis 0. IMPRESSION: 1. Acute anterior myocardial infarction. 2. Cardiogenic shock. 3. Nonsustained ventricular tachycardia. 4. Residual moderate coronary artery disease with severe disease of the left circumflex of an overall small vessel of 1 to 1.5 mm. RECOMMENDATIONS: 1. Ms. Arvizu underwent PCI as above and will continue on aspirin and Plavix therapy. 2. RHETT inhibitor therapy will be held due to hypotension as well as acute kidney injury. 3. Beta julio cesar therapy will continue to be given, but may need to be held due to current hypotension. 4. She will continue on statin therapy. 5. She will be taken back to the ICU and we will have to manage her cardiogenic shock. I discussed this with Dr. Courtney from the [facility]. We will watch her kidney function tomorrow and if stable, we will need to start diuresing her. At this time, they continue to be able to oxygenate her relatively well. Thank you for allowing me to see Olimpia Arvizu. If there are any questions, please do not hesitate to call. DO Giovana Horne , 05:12 PM , 05:26 PM
--- NOTE | 2018-02-03 23:58 | ECG ---
Date Performed: 02/02/2018 Time Performed: 06:40:36 PTAGE: 87 years EKG: Atrial fibrillation with rapid ventricular response. 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
[2018-02-04] MEDS: Oral Hygiene Kit OROPHARYNG SCH ×4 (00:35→17:07)
[2018-02-04] MEDS: Sodium Chlor 0.9% Inj 500 ML IV.CONT SCH ×2 (00:35→04:57)
[2018-02-04] MEDS: Insulin Regular (For Infusion) 100 UNIT in Sodium Chlor 0.9% Inj 99 ML IV.CONT PRN (03:37)
[2018-02-04 05:56] LABS: Baso % (Auto) 0.3 % (0.0-2.0); Eos # (Auto) 0.1 th/mm3 (0.0-0.4); Eos % (Auto) 1.6 % (0.0-4.0); Hematocrit 33.9 % (35.0-46.0); Hemoglobin 11.4 gm/dL (11.6-15.3); Lymph # (Auto) 1.1 th/mm3 (1.0-4.8); Lymph % (Auto) 12.4 % (9.0-44.0); Mean Corpuscular HGB Conc 33.5 % (32.0-36.0); Mean Corpuscular Hemoglobin 29.5 pg (27.0-34.0); Mean Corpuscular Volume 87.9 fL (80.0-100.0); Mean Platelet Volume 10.5 fL (7.0-11.0); Mono # (Auto) 0.9 th/mm3 (0.0-0.9); Mono % (Auto) 9.5 % (0.0-8.0); Neut % (Auto) 76.2 % (16.0-70.0); Platelet Count 176 th/mm3 (150-450); Red Blood Count 3.86 mil/mm3 (4.00-5.30); Red Cell Distribution Width 16.5 % (11.6-17.2); White Blood Count 9.2 th/mm3 (4.0-11.0)
[2018-02-04] MEDS: Propofol 1000 mg/100 ml Inj 1,000 MG/100 ML BOTTLE IV.CONT PRN ×2 (06:08→17:11)
[2018-02-04] MEDS: SODIUM CHLORIDE 0.9% IV.SIG SCH ×2 (06:11→11:11)
[2018-02-04] MEDS: AZTREONAM IV.SIG SCH ×2 (06:11→11:11)
[2018-02-04 06:26] LABS: Carbon Dioxide 17.9 meq/L (21.0-32.0); Potassium 4.3 meq/L (3.5-5.1)
[2018-02-04] MEDS: Sod Chloride 0.9% Inj 1,000 ML IV.CONT SCH (09:09)
[2018-02-04] MEDS: Chlorhexidine 0.12% Oral Kit 15 ML UDC OROPHARYNG SCH ×2 (09:10→21:24)
[2018-02-04] MEDS: Metoprolol Tartrate 25 MG Tablet PO SCH ×3 (09:10→17:10)
[2018-02-04] MEDS: Beneprotein Powder Packet G-TUBE SCH ×3 (09:11→17:11)
[2018-02-04] MEDS: Famotidine PF Inj 20 MG/2 ML Vial IV.PUSH SCH ×2 (09:11→21:25)
[2018-02-04] MEDS ORDERED: Dextrose 50% in Water 50 ML Vial IV.PUSH PRN (10:54)
--- NOTE | 2018-02-04 11:19 | P.PNNP ---
Subjective Interval history: patient was seen and examined in ICU. She is on the ventilator. Good urine output. On NS at 30 ml/hour, also on Phenylephrine. Patient may be extubated today. Renal function is better today. Physical Exam Vital signs: Vital Signs 02/03/18 12:00 02/03/18 14:00 02/03/18 14:15 Temperature 100.0 F H 99.5 F 99.3 F Pulse Rate 82 87 86 Respiratory Rate 16 16 16 Blood Pressure 96/51 L Pulse Oximetry 100 100 100 02/03/18 14:30 02/03/18 14:45 02/03/18 15:00 Temperature 99.3 F 99.3 F 99.5 F Pulse Rate 81 83 82 Respiratory Rate 17 16 16 Blood Pressure Pulse Oximetry 100 100 100 02/03/18 15:05 02/03/18 15:15 02/03/18 15:30 Temperature 99.5 F 99.5 F Pulse Rate 77 79 Respiratory Rate 16 16 Blood Pressure Pulse Oximetry 100 100 100 02/03/18 15:44 02/03/18 15:45 02/03/18 16:00 Temperature 99.7 F H 99.9 F H Pulse Rate 76 83 Respiratory Rate 16 16 16 Blood Pressure Pulse Oximetry 100 100 100 02/03/18 16:30 02/03/18 16:45 02/03/18 17:00 Temperature 99.9 F H 99.9 F H 99.9 F H Pulse Rate 82 79 82 Respiratory Rate 16 16 16 Blood Pressure 113/74 91/54 L Pulse Oximetry 100 100 100 02/03/18 17:15 02/03/18 17:30 02/03/18 17:45 Temperature 99.9 F H 99.9 F H 100.0 F H Pulse Rate 78 81 82 Respiratory Rate 16 16 16 Blood Pressure 104/61 116/56 L Pulse Oximetry 100 100 100 02/03/18 18:00 02/03/18 18:30 02/03/18 18:45 Temperature 100.0 F H 100.0 F H 100.0 F H Pulse Rate 82 83 77 Respiratory Rate 16 16 18 Blood Pressure 97/53 L 116/59 L 107/51 L Pulse Oximetry 100 100 100 02/03/18 19:00 02/03/18 19:31 02/03/18 20:00 Temperature 100.4 F H Pulse Rate 83 83 83 Respiratory Rate 16 16 16 Blood Pressure 110/59 L 92/55 L 111/59 L Pulse Oximetry 100 02/03/18 20:19 02/03/18 21:00 02/03/18 22:00 Temperature 100 F H Pulse Rate 82 86 Respiratory Rate 17 16 16 Blood Pressure 108/57 L 124/60 Pulse Oximetry 100 02/03/18 23:00 02/04/18 00:00 02/04/18 00:13 Temperature 100.1 F H 99.7 F H 99.5 F Pulse Rate 86 93 H 96 H Respiratory Rate 16 16 16 Blood Pressure 123/60 112/62 Pulse Oximetry 100 100 100 02/04/18 01:00 02/04/18 01:13 02/04/18 01:30 Temperature 99.3 F 99.1 F 99.1 F Pulse Rate 96 H 95 H 95 H Respiratory Rate 16 16 16 Blood Pressure 111/65 Pulse Oximetry 100 100 100 02/04/18 02:00 02/04/18 02:13 02/04/18 02:30 Temperature 99.1 F 99.1 F 99.1 F Pulse Rate 94 H 94 H 94 H Respiratory Rate 16 16 16 Blood Pressure 105/63 Pulse Oximetry 100 100 100 02/04/18 03:00 02/04/18 03:13 02/04/18 03:30 Temperature 99.0 F 99.0 F 99.0 F Pulse Rate 87 90 91 H Respiratory Rate 16 16 16 Blood Pressure 107/82 Pulse Oximetry 100 100 100 02/04/18 04:00 02/04/18 04:13 02/04/18 04:16 Temperature 98.8 F 98.8 F 98.8 F Pulse Rate 85 84 85 Respiratory Rate 17 23 18 Blood Pressure 88/53 L 111/53 L Pulse Oximetry 100 100 100 02/04/18 04:18 02/04/18 04:30 02/04/18 05:00 Temperature 98.6 F 98.6 F Pulse Rate 81 86 Respiratory Rate 16 20 22 Blood Pressure Pulse Oximetry 100 100 100 02/04/18 05:13 02/04/18 05:30 02/04/18 06:00 Temperature 98.6 F 98.6 F 98.1 F Pulse Rate 87 87 87 Respiratory Rate 18 18 17 Blood Pressure 126/83 Pulse Oximetry 100 100 97 02/04/18 06:30 02/04/18 07:00 02/04/18 07:21 Temperature 98.4 F 98.2 F 97.3 F L Pulse Rate 90 88 88 Respiratory Rate 16 16 17 Blood Pressure 106/61 Pulse Oximetry 100 100 96 02/04/18 07:30 02/04/18 08:00 02/04/18 08:30 Temperature 97.7 F 97.7 F 97.9 F Pulse Rate 85 85 87 Respiratory Rate 16 16 16 Blood Pressure 109/55 L 100/58 L 113/55 L Pulse Oximetry 100 100 100 02/04/18 09:00 02/04/18 09:23 02/04/18 09:30 Temperature 97.7 F 97.9 F Pulse Rate 87 87 Respiratory Rate 16 16 16 Blood Pressure 104/86 104/58 L Pulse Oximetry 100 99 100 02/04/18 10:00 02/04/18 10:23 02/04/18 10:30 Temperature 97.9 F 98.1 F Pulse Rate 75 79 Respiratory Rate 16 17 17 Blood Pressure 101/51 L 104/69 Pulse Oximetry 100 98 Intake & Output 02/03/18 02/04/18 02/04/18 18:59 06:59 18:59 Intake Total 1730 / 1730 1100 / 1100 100 / 100 Output Total 975 / 975 1300 / 1300 Balance 755 / 755 -200 / -200 100 / 100 Weight 89.3 kg Intake: IV 1550 / 1550 1100 / 1100 100 / 100 Heparin/D5W 25,000 U/250 mL 25, 50 / 50 000 unit In 250 ml @ Per Protocol IV.CONT TITRATE PRN Rx #:[id number] Diprivan 1000 mg/100 ml Inj 1, 100 / 100 200 / 200 000 mg In 100 ml @ 5 MCG/KG/MIN 2.55 mls/hr IV.CONT TITRATE PRN Rx#:[id number] NS Inj 500 ML @ 30 mls/hr IV. 500 / 500 500 / 500 CONT .[id number] TATYANA Rx#:[id number] Azithromycin Inj 500 MG In NS 250 / 250 Inj 250 ML @ 250 mls/hr IV.SIG Q24H TATYANA Rx#:[id number] Azactam Inj 2,000 GM In NS Inj 200 / 200 300 / 300 100 ML @ 200 mls/hr IV.SIG Q6H TATYANA Rx#:[id number] Vancomycin Inj 1,000 MG In NS 250 / 250 Inj 250 ML @ 250 mls/hr IV.SIG Q24H TATYANA Rx#:[id number] Flagyl 500 MG Inj 100 ML @ 100 200 / 200 100 / 100 100 / 100 mls/hr IV.SIG Q8H TATYANA Rx#: [id number] Water Bolus Amount 180 / 180 Output: Urine Amount (Catheter) 975 / 975 1300 / 1300 Indwelling Temp Sensing 975 / 975 1300 / 1300 Catheter Other: Date of Last Bowel Movement 01/31/18 01/31/18 01/31/18 - Constitutional no acute distress Comments: on the ventilator. - Routine HEENT Exam Head: Present: normocephalic, atraumatic Eye: Present: EOMI, PERRL ENT: Present: mucous membranes moist - Routine Neck Exam Absent: JVD, carotid bruit, lymphadenopathy, thyromegaly - Routine Respiratory Exam Present: CTA bilaterally - Routine Cardiovascular Exam Present: S1, S2 - Routine Abdominal Exam Present: soft - Routine Neurological Exam moves all extremities. - Urinary Catheter Management Indwelling Temp Sensing Catheter Cath placed during this visit: no Assessment and Plan - Assessment (1) Acute kidney injury Code(s): N17.9 - Acute kidney failure, unspecified Status: Acute Plan: Renal function is better, no evidence of contrast nephropathy after cardiac cath on 02/03. Continue conservative management. Avoid nephrotoxic agents. Monitor urine output and renal function. (2) Type 2 diabetes mellitus Code(s): E11.9 - Type 2 diabetes mellitus without complications Status: Chronic Plan: insulin coverage to maintain blood glucose between 140 and 180. (3) Non-ST elevated myocardial infarction (non-STEMI) Code(s): I21.4 - Non-ST elevation (NSTEMI) myocardial infarction Status: Acute - Plan Cardiology on the case. Went into cardiogenic shock. Underwent cardiac cath and stent placement to LAD.
--- NOTE | 2018-02-04 11:24 | P.PNCC ---
Subjective Subjective Remarks/Hospital Course: I have been asked to see emergently this 79-year-old female with a history of diabetes, anxiety, depression, history of rectal cancer in remission, CAD status post PCI, recent admission on 01/28 for non-ST elevation CO discharged on 01/29. Presented 01/31 with acute onset of dull pressure-like nonradiating chest pain resolved with aspirin and sublingual nitroglycerin. On arrival to the ICU she is clearly markedly labored respiratory effort and hypoxemia despite a nonrebreathing mask. She required intubation immediately upon arrival to get oxygen saturation greater than 90% and mechanical and ventilation with elevated end expiratory pressure was required to maintain adequate oxygenation. She appears to be undergoing a stuttering infarct and remains on a heparin drip. Fever on unknown origin, worsening lung infiltrates however. Start abx, adjust per ID service. 02/03: Improved oxygenation on mechanical ventilation with elevated end expiratory pressure. Labs consistent with left heart dysfunction and acute myocardial infarction. Spontaneous urine output has improved modestly. 02/04: Critically ill but overall showing some clinical improvement. Underwent left heart catheterization yesterday, PCI with LUZMARIA to LAD. Received Lasix 20 mg yesterday with more than 2 L urine output. On sedation hold weakly follows some commands Objective Vital Signs / I&O: Vital Signs 02/03/18 12:00 02/03/18 14:00 02/03/18 14:15 Temperature 100.0 F H 99.5 F 99.3 F Pulse Rate 82 87 86 Respiratory Rate 16 16 16 Blood Pressure 96/51 L Pulse Oximetry 100 100 100 02/03/18 14:30 02/03/18 14:45 02/03/18 15:00 Temperature 99.3 F 99.3 F 99.5 F Pulse Rate 81 83 82 Respiratory Rate 17 16 16 Blood Pressure Pulse Oximetry 100 100 100 02/03/18 15:05 02/03/18 15:15 02/03/18 15:30 Temperature 99.5 F 99.5 F Pulse Rate 77 79 Respiratory Rate 16 16 Blood Pressure Pulse Oximetry 100 100 100 02/03/18 15:44 02/03/18 15:45 02/03/18 16:00 Temperature 99.7 F H 99.9 F H Pulse Rate 76 83 Respiratory Rate 16 16 16 Blood Pressure Pulse Oximetry 100 100 100 02/03/18 16:30 02/03/18 16:45 02/03/18 17:00 Temperature 99.9 F H 99.9 F H 99.9 F H Pulse Rate 82 79 82 Respiratory Rate 16 16 16 Blood Pressure 113/74 91/54 L Pulse Oximetry 100 100 100 02/03/18 17:15 02/03/18 17:30 02/03/18 17:45 Temperature 99.9 F H 99.9 F H 100.0 F H Pulse Rate 78 81 82 Respiratory Rate 16 16 16 Blood Pressure 104/61 116/56 L Pulse Oximetry 100 100 100 02/03/18 18:00 02/03/18 18:30 02/03/18 18:45 Temperature 100.0 F H 100.0 F H 100.0 F H Pulse Rate 82 83 77 Respiratory Rate 16 16 18 Blood Pressure 97/53 L 116/59 L 107/51 L Pulse Oximetry 100 100 100 02/03/18 19:00 02/03/18 19:31 02/03/18 20:00 Temperature 100.4 F H Pulse Rate 83 83 83 Respiratory Rate 16 16 16 Blood Pressure 110/59 L 92/55 L 111/59 L Pulse Oximetry 100 02/03/18 20:19 02/03/18 21:00 02/03/18 22:00 Temperature 100 F H Pulse Rate 82 86 Respiratory Rate 17 16 16 Blood Pressure 108/57 L 124/60 Pulse Oximetry 100 02/03/18 23:00 02/04/18 00:00 02/04/18 00:13 Temperature 100.1 F H 99.7 F H 99.5 F Pulse Rate 86 93 H 96 H Respiratory Rate 16 16 16 Blood Pressure 123/60 112/62 Pulse Oximetry 100 100 100 02/04/18 01:00 02/04/18 01:13 02/04/18 01:30 Temperature 99.3 F 99.1 F 99.1 F Pulse Rate 96 H 95 H 95 H Respiratory Rate 16 16 16 Blood Pressure 111/65 Pulse Oximetry 100 100 100 02/04/18 02:00 02/04/18 02:13 02/04/18 02:30 Temperature 99.1 F 99.1 F 99.1 F Pulse Rate 94 H 94 H 94 H Respiratory Rate 16 16 16 Blood Pressure 105/63 Pulse Oximetry 100 100 100 02/04/18 03:00 02/04/18 03:13 02/04/18 03:30 Temperature 99.0 F 99.0 F 99.0 F Pulse Rate 87 90 91 H Respiratory Rate 16 16 16 Blood Pressure 107/82 Pulse Oximetry 100 100 100 02/04/18 04:00 02/04/18 04:13 02/04/18 04:16 Temperature 98.8 F 98.8 F 98.8 F Pulse Rate 85 84 85 Respiratory Rate 17 23 18 Blood Pressure 88/53 L 111/53 L Pulse Oximetry 100 100 100 02/04/18 04:18 02/04/18 04:30 02/04/18 05:00 Temperature 98.6 F 98.6 F Pulse Rate 81 86 Respiratory Rate 16 20 22 Blood Pressure Pulse Oximetry 100 100 100 02/04/18 05:13 02/04/18 05:30 02/04/18 06:00 Temperature 98.6 F 98.6 F 98.1 F Pulse Rate 87 87 87 Respiratory Rate 18 18 17 Blood Pressure 126/83 Pulse Oximetry 100 100 97 02/04/18 06:30 02/04/18 07:00 02/04/18 07:21 Temperature 98.4 F 98.2 F 97.3 F L Pulse Rate 90 88 88 Respiratory Rate 16 16 17 Blood Pressure 106/61 Pulse Oximetry 100 100 96 02/04/18 07:30 02/04/18 08:00 02/04/18 08:30 Temperature 97.7 F 97.7 F 97.9 F Pulse Rate 85 85 87 Respiratory Rate 16 16 16 Blood Pressure 109/55 L 100/58 L 113/55 L Pulse Oximetry 100 100 100 02/04/18 09:00 02/04/18 09:23 02/04/18 09:30 Temperature 97.7 F 97.9 F Pulse Rate 87 87 Respiratory Rate 16 16 16 Blood Pressure 104/86 104/58 L Pulse Oximetry 100 99 100 02/04/18 10:00 02/04/18 10:23 02/04/18 10:30 Temperature 97.9 F 98.1 F Pulse Rate 75 79 Respiratory Rate 16 17 17 Blood Pressure 101/51 L 104/69 Pulse Oximetry 100 98 Intake & Output 02/03/18 02/04/18 02/04/18 18:59 06:59 18:59 Intake Total 1730 / 1730 1100 / 1100 100 / 100 Output Total 975 / 975 1300 / 1300 Balance 755 / 755 -200 / -200 100 / 100 Weight 89.3 kg Intake: IV 1550 / 1550 1100 / 1100 100 / 100 Heparin/D5W 25,000 U/250 mL 25, 50 / 50 000 unit In 250 ml @ Per Protocol IV.CONT TITRATE PRN Rx #:[id number] Diprivan 1000 mg/100 ml Inj 1, 100 / 100 200 / 200 000 mg In 100 ml @ 5 MCG/KG/MIN 2.55 mls/hr IV.CONT TITRATE PRN Rx#:[id number] NS Inj 500 ML @ 30 mls/hr IV. 500 / 500 500 / 500 CONT .[id number] TATYANA Rx#:[id number] Azithromycin Inj 500 MG In NS 250 / 250 Inj 250 ML @ 250 mls/hr IV.SIG Q24H TATYANA Rx#:[id number] Azactam Inj 2,000 GM In NS Inj 200 / 200 300 / 300 100 ML @ 200 mls/hr IV.SIG Q6H TATYANA Rx#:[id number] Vancomycin Inj 1,000 MG In NS 250 / 250 Inj 250 ML @ 250 mls/hr IV.SIG Q24H TATYANA Rx#:[id number] Flagyl 500 MG Inj 100 ML @ 100 200 / 200 100 / 100 100 / 100 mls/hr IV.SIG Q8H TATYANA Rx#: [id number] Water Bolus Amount 180 / 180 Output: Urine Amount (Catheter) 975 / 975 1300 / 1300 Indwelling Temp Sensing 975 / 975 1300 / 1300 Catheter Other: Date of Last Bowel Movement 01/31/18 01/31/18 01/31/18 Result Diagrams: 02/04/18 04:49 02/04/18 04:49 Objective Remarks: Narrative: General: Elderly woman lightly sedated, on mechanical ventilation HEENT: Oral tracheal intubation, oral gastric tube in place for decompression of the GI tract. Cardiovascular: Irregular irregular rhythm, rate 88 - neck veins are full Respiratory: Basilar Crackles persist very few, no wheezing, acceptable bilateral air movement Abdomen: Soft, nontender, nondistended, few bowel sounds, no guarding Extremities: Warm, adequately perfused, trace edema lower extremities Neuro: Sedated for ventilator synchrony. Withdraws 4 limbs to stimulation. On holding sedation patient is awake follows commands in the upper extremities Assessment and Plan - Problem List (1) Acute hypoxemic respiratory failure Code(s): J96.01 - Acute respiratory failure with hypoxia Status: Acute (2) Pulmonary edema cardiac cause Code(s): I50.1 - Left ventricular failure, unspecified Status: Acute (3) Acute myocardial infarction Code(s): I21.9 - Acute myocardial infarction, unspecified Status: Acute (4) Acute kidney injury Code(s): N17.9 - Acute kidney failure, unspecified Status: Acute (5) Type 2 diabetes mellitus Code(s): E11.9 - Type 2 diabetes mellitus without complications Status: Chronic - Assessment and Plan Plan: Plan: Acute hypoxemic respiratory failure -Mechanical ventilation PRVC -Diuretics as tolerated, follow prerenal pattern -Propofol sedation -Start daily spontaneous breathing trials Acute myocardial infarction -Continue antiplatelet therapy -Status post PCI with LAD stent (LUZMARIA) 02/03/[address] Peralta -Continue to trend troponin -Start milrinone at low-dose for inotropic support -Give additional 40 mg Lasix x1 -Discussed with Dr. Peralta Ischemic cardiomyopathy -Cardiogenic shock, start milrinone -Continue beta-blockers if tolerated -EF 20% -Diuresis as above -Watch closely for arrhythmias Acute kidney injury -Avoid nephrotoxins -Attempt to gingerly diuresis without exacerbating renal injury -Additional 40 mg Lasix today Diabetes mellitus, poorly controlled -Resume Levemir twice daily -Resume medium correction sliding scale insulin protocol -Insulin drip initiated yesterday afternoon because of poor glucose control with intermittent agents. Prophylaxis -Heparin sq -Pepcid Overall impression: This woman is critically ill with pulmonary edema of cardiac etiology. She has required intubation and mechanical ventilation with elevated airway pressures because of the severe oxygen diffusion impairment. With improved oxygenation hopefully we can get better heart rate control; she undoubtedly has some element of diastolic dysfunction at her age. Considering all aspects of her present physiological state her prognosis is poor and her risk of early is high. Cardiology service following Critical care time 38 minutes Code Status: Full Discussed Condition With: Dr. Peralta
--- NOTE | 2018-02-04 11:39 | XR ---
EXAM DATE: 02/04/2018 11:23 AM EST AGE/SEX: 87 years / Female INDICATIONS: Shortness of breath. CLINICAL DATA: This is the patient's subsequent encounter. Patient reports that signs and symptoms h ave been present for 1 week and indicates a pain score of Nonresponsive. MEDICAL/SURGICAL HISTORY: Non-responsive. Non-responsive. COMPARISON: [facility] – [place]ST 1V SINGLE AP, 02/03/2018. . FINDINGS: A single AP view of the chest demonstrates minimal left basilar density. Right lung clear. There may be a small pleural effusion. Endotracheal tube and nasogastric tube unchanged. The cardiomediastinal contours are unremarkable. Osseous structures are intact. CONCLUSION: Minimal left basilar density and probable small pleural effusion. Electronically signed by: Kenji Mcnair MD 02/04/2018 11:38 AM EST
[2018-02-04] MEDS ORDERED: Milrinone Inj 20 MG in Sodium Chlor 0.9% Inj 80 ML IV.CONT SCH (12:00)
[2018-02-04] MEDS: Insulin NovoLOG Aspart Correctional Sugar Inj SQ SCH ×3 (12:01→21:24)
[2018-02-04] MEDS: Azithromycin Inj 500 MG in Sodium Chlor 0.9% Inj 250 ML IV.SIG SCH ×2 (13:01→13:07)
[2018-02-04] MEDS: Heparin - SQ 10,000 UNITS/ML Vial SQ SCH ×2 (13:02→21:25)
--- NOTE | 2018-02-04 13:11 | P.PNPAL ---
Reason for Visit Reason for visit: a. To assist with evaluation and management of symptoms including: Chest pain, dyspnea b. To assist medical decision maker(s) with: better understanding of current medical conditions; weighing benefits/burdens of medical treatment options; making medical treatment decisions. Subjective Subjective/Interval History: This is an 87-year-old female with a past medical history of diabetes, hypertension, rectal cancer in remission, anxiety, depression, coronary artery disease status post stent, former smoker who presented to the emergency department 01/31/2018 plane of chest pain, substernal, pressure, nonradiating, persistent, which resolved with aspirin and sublingual nitro given to her by EMS. She had taken a Xanax earlier to try and help her sleep. Her presenting troponin was 1.25 did she had been seen in the ED on 01/28 and had troponin levels of 0.11, 0.96, 1.08. She was diagnosed with a non-STEMI and seen by cardiology. Cardiac catheterization was held secondary to renal insufficiency. Nephrology consultation was requested for further evaluation. On 02/02 she became hypotensive and dyspneic and overnight required intubation and transferred to the intensive care unit for hemodynamic support with vasopressors. She was seen to be in cardiogenic shock and having episodic nonsustained VT so on 02/03 she was taken to the catheterization lab where a stent was placed to the LAD. Catheterization showed residual moderate coronary artery disease with severe disease of the left circumflex with an overall small vessel of 1-1.5 mm. Ejection fraction remains less than 20%. She is seen in the intensive care unit, intubated, lightly sedated, awake, able to make her needs known. She mouth that "she is cold ". Milrinone is being initiated for inotropic support. I reviewed with her that her granddaughter had stated that the patient wanted all of the aggressive interventions that she is currently having and the patient nodded her head "yes". She is currently in isolation due to ESBL UTI with E. coli on ertapenem per culture. She is also receiving a azithromycin for suspected pneumonia. Infectious disease is following. Nephrology is also following secondary to renal insufficiency and need for contrast for cardiac intervention. She is receiving low-dose IV fluid replacement and is urinating adequately. Nephrology recommendation is to continue current plan and monitor labs. . Family/Friend Interactions: Spoke with granddaughter, Treva, who expressed concern about some lack of communication with Dr. Courtney, but is very happy with the remainder of the medical staff. She has been updated by Dr. Peralta, Dr. Johnson, Dr. Campbell, and Dr. Medrano. She is optimistic about her grandmother's prognosis and appears to have a full grasp of the clinical findings thus far to include current isolation status of contact precautions due to ESBL UTI and incidental finding of nonspecific mass in the left breast seen on abdomen and pelvis CT done 02/02. She is unaware of any mammogram done after 2012 feels this can be followed up on if her grandmother survives this hospitalization. . Advance Directives Living Will: Copy in medical record Health Care Surrogate: Copy in medical record Health Care Surrogate Name and Number: Treva Arvizu Objective Vital Signs: Vital Signs 02/03/18 14:00 02/03/18 14:15 02/03/18 14:30 Temperature 99.5 F 99.3 F 99.3 F Pulse Rate 87 86 81 Respiratory Rate 16 16 17 Blood Pressure Pulse Oximetry 100 100 100 02/03/18 14:45 02/03/18 15:00 02/03/18 15:05 Temperature 99.3 F 99.5 F Pulse Rate 83 82 Respiratory Rate 16 16 Blood Pressure Pulse Oximetry 100 100 100 02/03/18 15:15 02/03/18 15:30 02/03/18 15:44 Temperature 99.5 F 99.5 F Pulse Rate 77 79 Respiratory Rate 16 16 16 Blood Pressure Pulse Oximetry 100 100 100 02/03/18 15:45 02/03/18 16:00 02/03/18 16:30 Temperature 99.7 F H 99.9 F H 99.9 F H Pulse Rate 76 83 82 Respiratory Rate 16 16 16 Blood Pressure Pulse Oximetry 100 100 100 02/03/18 16:45 02/03/18 17:00 02/03/18 17:15 Temperature 99.9 F H 99.9 F H 99.9 F H Pulse Rate 79 82 78 Respiratory Rate 16 16 16 Blood Pressure 113/74 91/54 L 104/61 Pulse Oximetry 100 100 100 02/03/18 17:30 02/03/18 17:45 02/03/18 18:00 Temperature 99.9 F H 100.0 F H 100.0 F H Pulse Rate 81 82 82 Respiratory Rate 16 16 16 Blood Pressure 116/56 L 97/53 L Pulse Oximetry 100 100 100 02/03/18 18:30 02/03/18 18:45 02/03/18 19:00 Temperature 100.0 F H 100.0 F H Pulse Rate 83 77 83 Respiratory Rate 16 18 16 Blood Pressure 116/59 L 107/51 L 110/59 L Pulse Oximetry 100 100 100 02/03/18 19:31 02/03/18 20:00 02/03/18 20:19 Temperature 100.4 F H Pulse Rate 83 83 Respiratory Rate 16 16 17 Blood Pressure 92/55 L 111/59 L Pulse Oximetry 100 02/03/18 21:00 02/03/18 22:00 02/03/18 23:00 Temperature 100 F H 100.1 F H Pulse Rate 82 86 86 Respiratory Rate 16 16 16 Blood Pressure 108/57 L 124/60 123/60 Pulse Oximetry 100 02/04/18 00:00 02/04/18 00:13 02/04/18 01:00 Temperature 99.7 F H 99.5 F 99.3 F Pulse Rate 93 H 96 H 96 H Respiratory Rate 16 16 16 Blood Pressure 112/62 Pulse Oximetry 100 100 100 02/04/18 01:13 02/04/18 01:30 02/04/18 02:00 Temperature 99.1 F 99.1 F 99.1 F Pulse Rate 95 H 95 H 94 H Respiratory Rate 16 16 16 Blood Pressure 111/65 Pulse Oximetry 100 100 100 02/04/18 02:13 02/04/18 02:30 02/04/18 03:00 Temperature 99.1 F 99.1 F 99.0 F Pulse Rate 94 H 94 H 87 Respiratory Rate 16 16 16 Blood Pressure 105/63 Pulse Oximetry 100 100 100 02/04/18 03:13 02/04/18 03:30 02/04/18 04:00 Temperature 99.0 F 99.0 F 98.8 F Pulse Rate 90 91 H 85 Respiratory Rate 16 16 17 Blood Pressure 107/82 Pulse Oximetry 100 100 100 02/04/18 04:13 02/04/18 04:16 02/04/18 04:18 Temperature 98.8 F 98.8 F Pulse Rate 84 85 Respiratory Rate 23 18 16 Blood Pressure 88/53 L 111/53 L Pulse Oximetry 100 100 100 02/04/18 04:30 02/04/18 05:00 02/04/18 05:13 Temperature 98.6 F 98.6 F 98.6 F Pulse Rate 81 86 87 Respiratory Rate 20 22 18 Blood Pressure 126/83 Pulse Oximetry 100 100 100 02/04/18 05:30 02/04/18 06:00 02/04/18 06:30 Temperature 98.6 F 98.1 F 98.4 F Pulse Rate 87 87 90 Respiratory Rate 18 17 16 Blood Pressure Pulse Oximetry 100 97 100 02/04/18 07:00 02/04/18 07:21 02/04/18 07:30 Temperature 98.2 F 97.3 F L 97.7 F Pulse Rate 88 88 85 Respiratory Rate 16 17 16 Blood Pressure 106/61 109/55 L Pulse Oximetry 100 96 100 02/04/18 08:00 02/04/18 08:30 02/04/18 09:00 Temperature 97.7 F 97.9 F 97.7 F Pulse Rate 85 87 87 Respiratory Rate 16 16 16 Blood Pressure 100/58 L 113/55 L 104/86 Pulse Oximetry 100 100 100 02/04/18 09:23 02/04/18 09:30 02/04/18 10:00 Temperature 97.9 F 97.9 F Pulse Rate 87 75 Respiratory Rate 16 16 16 Blood Pressure 104/58 L 101/51 L Pulse Oximetry 99 100 100 02/04/18 10:23 02/04/18 10:30 02/04/18 11:00 Temperature 98.1 F 98.1 F Pulse Rate 79 84 Respiratory Rate 17 17 25 H Blood Pressure 104/69 113/85 Pulse Oximetry 98 100 02/04/18 11:30 02/04/18 12:00 Temperature 98.4 F 98.6 F Pulse Rate 86 90 Respiratory Rate 16 20 Blood Pressure 127/60 106/57 L Pulse Oximetry 100 100 Intake & Output 02/03/18 02/04/18 02/04/18 18:59 06:59 18:59 Intake Total 1730 / 1730 1100 / 1100 100 / 100 Output Total 975 / 975 1300 / 1300 Balance 755 / 755 -200 / -200 100 / 100 Weight 196 lb 13.965 oz Intake: IV 1550 / 1550 1100 / 1100 100 / 100 Heparin/D5W 25,000 U/250 mL 25, 50 / 50 000 unit In 250 ml @ Per Protocol IV.CONT TITRATE PRN Rx #:[id number] Diprivan 1000 mg/100 ml Inj 1, 100 / 100 200 / 200 000 mg In 100 ml @ 5 MCG/KG/MIN 2.55 mls/hr IV.CONT TITRATE PRN Rx#:[id number] NS Inj 500 ML @ 30 mls/hr IV. 500 / 500 500 / 500 CONT .[id number] TATYANA Rx#:[id number] Azithromycin Inj 500 MG In NS 250 / 250 Inj 250 ML @ 250 mls/hr IV.SIG Q24H TATYANA Rx#:[id number] Azactam Inj 2,000 GM In NS Inj 200 / 200 300 / 300 100 ML @ 200 mls/hr IV.SIG Q6H TATYANA Rx#:[id number] Vancomycin Inj 1,000 MG In NS 250 / 250 Inj 250 ML @ 250 mls/hr IV.SIG Q24H TATYANA Rx#:[id number] Flagyl 500 MG Inj 100 ML @ 100 200 / 200 100 / 100 100 / 100 mls/hr IV.SIG Q8H TATYANA Rx#: [id number] Water Bolus Amount 180 / 180 Output: Urine Amount (Catheter) 975 / 975 1300 / 1300 Indwelling Temp Sensing 975 / 975 1300 / 1300 Catheter Other: Date of Last Bowel Movement 01/31/18 01/31/18 01/31/18 Physical Exam: CONSTITUTIONAL/GENERAL: This is an adequately nourished patient, lying in bed, intubated, lightly sedated, awake. TUBES/LINES/DRAINS: PIV NECK: Trachea midline. Supple, nontender. No palpable thyroid enlargement or nodularity. Orotracheally intubated CARDIOVASCULAR: Regular rate and rhythm without murmurs, gallops, or rubs. No JVD. Peripheral pulses symmetric. RESPIRATORY/CHEST: Coarse breath sounds throughout all lung howell. GASTROINTESTINAL: Abdomen soft, non-tender, nondistended. No hepato-splenomegaly , or palpable masses. No guarding. Bowel sounds present. GENITOURINARY: Without palpable bladder distension. MUSCULOSKELETAL: Extremities without clubbing, cyanosis, or edema. No joint tenderness or effusion noted. No calf tenderness. No mottling or clubbing. NEUROLOGICAL: Awake on ventilator. Mildly agitated, responds appropriately to questions, focusing and tracking. PSYCHIATRIC: Anxiety, likely secondary to intubation and restraints. . Diagnostic Tests Laboratory: Laboratory Results - last 72 hr 01/31/18 02/01/18 02/01/18 11:01 17:35 20:37 WBC RBC Hgb Hct MCV MCH MCHC RDW Plt Count MPV Prelim Diff (Auto) Neut % (Auto) Lymph % (Auto) [place] % (Auto) Eos % (Auto) Baso % (Auto) Neut # (Auto) Lymph # (Auto) [place] # (Auto) Eos # (Auto) Baso # (Auto) WBC Differential Seg Neuts % (Manual) Band Neuts % (Manual) Lymphocytes % (Manual) Monocytes % (Manual) Eosinophils % (Manual) Abs Neuts (Manual) Differential Comment Toxic Granulation Platelet Estimate Platelet Morphology APTT Puncture Site Patient Temperature O2 Saturation ABG pH ABG pCO2 ABG pO2 ABG HCO3 ABG O2 Content ABG Base Excess ABG Methemoglobin [place] Test Hemoglobin Carboxyhemoglobin O2 Delivery Device Liter Flow Vent Setting Inspired O2 Critical Value Sodium Potassium Chloride Carbon Dioxide Anion Gap BUN Creatinine Estimated GFR POC Glucose 298 H 260 H Random Glucose Hemoglobin A1c 7.8 H Lactic Acid Calcium Magnesium Total Creatine Kinase CK-MB (CK-2) CK-MB (CK-2) % Troponin I B-Natriuretic Peptide Urine Color Urine Clarity Urine pH Ur Specific [place] Urine Protein Urine Glucose (UA) Urine Ketones Urine Occult Blood Urine Nitrate Urine Bilirubin Urine Urobilinogen Ur Leukocyte Esterase Urine RBC Urine WBC Urine WBC Clumps Amorphous Sediment Urine Bacteria Urine Mucus Micro UA Comment Ur Microscopic Review Urine Culture Comments Nasal Screen MRSA (PCR) 02/02/18 02/02/18 02/02/18 05:20 05:20 05:20 WBC 12.5 H RBC 3.87 L Hgb 11.3 L Hct 33.9 L MCV 87.8 MCH 29.3 MCHC 33.4 RDW 16.3 Plt Count 143 L MPV 11.2 H Prelim Diff (Auto) Manual diff required Neut % (Auto) Lymph % (Auto) [place] % (Auto) Eos % (Auto) Baso % (Auto) Neut # (Auto) Lymph # (Auto) [place] # (Auto) Eos # (Auto) Baso # (Auto) WBC Differential Manual diff final Seg Neuts % (Manual) 77 H Band Neuts % (Manual) 8 H Lymphocytes % (Manual) 6 L Monocytes % (Manual) 7 Eosinophils % (Manual) 2 Abs Neuts (Manual) 10.6 H Differential Comment . Toxic Granulation 1+ H Platelet Estimate Low L Platelet Morphology Enlarged H APTT 38.5 H Puncture Site Patient Temperature O2 Saturation ABG pH ABG pCO2 ABG pO2 ABG HCO3 ABG O2 Content ABG Base Excess ABG Methemoglobin [place] Test Hemoglobin Carboxyhemoglobin O2 Delivery Device Liter Flow Vent Setting Inspired O2 Critical Value Sodium 137 Potassium 4.6 Chloride 104 Carbon Dioxide 24.1 Anion Gap 9 BUN 29 H Creatinine 1.27 H Estimated GFR 40 L POC Glucose Random Glucose 207 H Hemoglobin A1c Lactic Acid Calcium 8.5 Magnesium Total Creatine Kinase CK-MB (CK-2) CK-MB (CK-2) % Troponin I B-Natriuretic Peptide Urine Color Urine Clarity Urine pH Ur Specific [place] Urine Protein Urine Glucose (UA) Urine Ketones Urine Occult Blood Urine Nitrate Urine Bilirubin Urine Urobilinogen Ur Leukocyte Esterase Urine RBC Urine WBC Urine WBC Clumps Amorphous Sediment Urine Bacteria Urine Mucus Micro UA Comment Ur Microscopic Review Urine Culture Comments Nasal Screen MRSA (PCR) 02/02/18 02/02/18 02/02/18 05:20 06:27 06:30 WBC RBC Hgb Hct MCV MCH MCHC RDW Plt Count MPV Prelim Diff (Auto) Neut % (Auto) Lymph % (Auto) [place] % (Auto) Eos % (Auto) Baso % (Auto) Neut # (Auto) Lymph # (Auto) [place] # (Auto) Eos # (Auto) Baso # (Auto) WBC Differential Seg Neuts % (Manual) Band Neuts % (Manual) Lymphocytes % (Manual) Monocytes % (Manual) Eosinophils % (Manual) Abs Neuts (Manual) Differential Comment Toxic Granulation Platelet Estimate Platelet Morphology APTT Puncture Site Right radial Patient Temperature 98.6 O2 Saturation 91 ABG pH 7.16 L* ABG pCO2 57 H* ABG pO2 83 ABG HCO3 19 L ABG O2 Content 16.1 ABG Base Excess -8.2 L ABG Methemoglobin 1.4 [place] Test Present Hemoglobin 12.6 Carboxyhemoglobin 0.9 O2 Delivery Device Non-rebreathing mask Liter Flow 15.00 Vent Setting Inspired O2 100 Critical Value Yes Sodium Potassium Chloride Carbon Dioxide Anion Gap BUN Creatinine Estimated GFR POC Glucose 334 H Random Glucose Hemoglobin A1c Lactic Acid Calcium Magnesium Total Creatine Kinase CK-MB (CK-2) CK-MB (CK-2) % Troponin I B-Natriuretic Peptide 622 H Urine Color Urine Clarity Urine pH Ur Specific [place] Urine Protein Urine Glucose (UA) Urine Ketones Urine Occult Blood Urine Nitrate Urine Bilirubin Urine Urobilinogen Ur Leukocyte Esterase Urine RBC Urine WBC Urine WBC Cl[place] Amorphous Sediment Urine Bacteria Urine Mucus Micro UA Comment Ur Microscopic Review Urine Culture Comments Nasal Screen MRSA (PCR) 02/02/18 02/02/18 02/02/18 08:36 09:00 09:00 WBC RBC Hgb Hct MCV MCH MCHC RDW Plt Count MPV Prelim Diff (Auto) Neut % (Auto) Lymph % (Auto) [place] % (Auto) Eos % (Auto) Baso % (Auto) Neut # (Auto) Lymph # (Auto) [place] # (Auto) Eos # (Auto) Baso # (Auto) WBC Differential Seg Neuts % (Manual) Band Neuts % (Manual) Lymphocytes % (Manual) Monocytes % (Manual) Eosinophils % (Manual) Abs Neuts (Manual) Differential Comment Toxic Granulation Platelet Estimate Platelet Morphology APTT Puncture Site Right radial Patient Temperature 98.6 O2 Saturation 89 L* ABG pH 7.25 L* ABG pCO2 49 H ABG pO2 68 ABG HCO3 21 L ABG O2 Content 15.9 ABG Base Excess -5.4 L ABG Methemoglobin 1.1 [place] Test Present Hemoglobin 12.7 Carboxyhemoglobin 1.3 O2 Delivery Device Vent Liter Flow Vent Setting See comments Inspired O2 100 Critical Value Yes Sodium Potassium Chloride Carbon Dioxide Anion Gap BUN Creatinine Estimated GFR POC Glucose Random Glucose Hemoglobin A1c Lactic Acid Calcium Magnesium Total Creatine Kinase CK-MB (CK-2) CK-MB (CK-2) % Troponin I B-Natriuretic Peptide Urine Color Yellow Urine Clarity Cloudy H Urine pH 5.0 Ur Specific [place] 1.014 Urine Protein 30 H Urine Glucose (UA) Negative Urine Ketones 20 Urine Occult Blood Small H Urine Nitrate Positive H Urine Bilirubin Negative Urine Urobilinogen Less than 2 Ur Leukocyte Esterase Large H Urine RBC 17 H Urine WBC Urine WBC Clumps Many H Amorphous Sediment Rare H Urine Bacteria Many H Urine Mucus Few H Micro UA Comment Culture indicated Ur Microscopic Review Not Reportable Urine Culture Comments Culture indicated Nasal Screen MRSA (PCR) Not detected 02/02/18 02/02/18 02/02/18 09:26 12:05 13:48 WBC RBC Hgb Hct MCV MCH MCHC RDW Plt Count MPV Prelim Diff (Auto) Neut % (Auto) Lymph % (Auto) [place] % (Auto) Eos % (Auto) Baso % (Auto) Neut # (Auto) Lymph # (Auto) [place] # (Auto) Eos # (Auto) Baso # (Auto) WBC Differential Seg Neuts % (Manual) Band Neuts % (Manual) Lymphocytes % (Manual) Monocytes % (Manual) Eosinophils % (Manual) Abs Neuts (Manual) Differential Comment Toxic Granulation Platelet Estimate Platelet Morphology APTT 45.5 H Puncture Site Patient Temperature O2 Saturation ABG pH ABG pCO2 ABG pO2 ABG HCO3 ABG O2 Content ABG Base Excess ABG Methemoglobin [place] Test Hemoglobin Carboxyhemoglobin O2 Delivery Device Liter Flow Vent Setting Inspired O2 Critical Value Sodium Potassium Chloride Carbon Dioxide Anion Gap BUN Creatinine Estimated GFR POC Glucose 365 H 410 H Random Glucose Hemoglobin A1c Lactic Acid Calcium Magnesium Total Creatine Kinase CK-MB (CK-2) CK-MB (CK-2) % Troponin I B-Natriuretic Peptide Urine Color Urine Clarity Urine pH Ur Specific [place] Urine Protein Urine Glucose (UA) Urine Ketones Urine Occult Blood Urine Nitrate Urine Bilirubin Urine Urobilinogen Ur Leukocyte Esterase Urine RBC Urine WBC Urine WBC [place] Amorphous Sediment Urine Bacteria Urine Mucus Micro UA Comment Ur Microscopic Review Urine Culture Comments Nasal Screen MRSA (PCR) 02/02/18 02/02/18 02/02/18 15:27 17:18 18:00 WBC RBC Hgb Hct MCV MCH MCHC RDW Plt Count MPV Prelim Diff (Auto) Neut % (Auto) Lymph % (Auto) [place] % (Auto) Eos % (Auto) Baso % (Auto) Neut # (Auto) Lymph # (Auto) [place] # (Auto) Eos # (Auto) Baso # (Auto) WBC Differential Seg Neuts % (Manual) Band Neuts % (Manual) Lymphocytes % (Manual) Monocytes % (Manual) Eosinophils % (Manual) Abs Neuts (Manual) Differential Comment Toxic Granulation Platelet Estimate Platelet Morphology APTT Puncture Site Right brachial Patient Temperature 98.6 O2 Saturation 98 ABG pH 7.46 H ABG pCO2 30 L ABG pO2 293 H ABG HCO3 21 L ABG O2 Content 16.4 ABG Base Excess -2.6 L ABG Methemoglobin 1.0 [place] Test Present Hemoglobin 11.5 L Carboxyhemoglobin 1.3 O2 Delivery Device Ventilator Liter Flow Vent Setting Prvc 16/550/10+/1.0 Inspired O2 70 Critical Value No Sodium Potassium Chloride Carbon Dioxide Anion Gap BUN Creatinine Estimated GFR POC Glucose 340 H Random Glucose Hemoglobin A1c Lactic Acid 1.8 Calcium Magnesium Total Creatine Kinase CK-MB (CK-2) CK-MB (CK-2) % Troponin I B-Natriuretic Peptide Urine Color Urine Clarity Urine pH Ur Specific [place] Urine Protein Urine Glucose (UA) Urine Ketones Urine Occult Blood Urine Nitrate Urine Bilirubin Urine Urobilinogen Ur Leukocyte Esterase Urine RBC Urine WBC Urine WBC [place] Amorphous Sediment Urine Bacteria Urine Mucus Micro UA Comment Ur Microscopic Review Urine Culture Comments Nasal Screen MRSA (PCR) 02/02/18 02/02/18 02/02/18 18:12 18:12 18:32 WBC RBC Hgb Hct MCV MCH MCHC RDW Plt Count MPV Prelim Diff (Auto) Neut % (Auto) Lymph % (Auto) [place] % (Auto) Eos % (Auto) Baso % (Auto) Neut # (Auto) Lymph # (Auto) [place] # (Auto) Eos # (Auto) Baso # (Auto) WBC Differential Seg Neuts % (Manual) Band Neuts % (Manual) Lymphocytes % (Manual) Monocytes % (Manual) Eosinophils % (Manual) Abs Neuts (Manual) Differential Comment Toxic Granulation Platelet Estimate Platelet Morphology APTT 41.7 H Puncture Site Patient Temperature O2 Saturation ABG pH ABG pCO2 ABG pO2 ABG HCO3 ABG O2 Content ABG Base Excess ABG Methemoglobin [place] Test Hemoglobin Carboxyhemoglobin O2 Delivery Device Liter Flow Vent Setting Inspired O2 Critical Value Sodium Potassium Chloride Carbon Dioxide Anion Gap BUN Creatinine Estimated GFR POC Glucose 283 H Random Glucose Hemoglobin A1c Lactic Acid Calcium Magnesium Total Creatine Kinase CK-MB (CK-2) CK-MB (CK-2) % Troponin I 15.80 H* D B-Natriuretic Peptide Urine Color Urine Clarity Urine pH Ur Specific [place] Urine Protein Urine Glucose (UA) Urine Ketones Urine Occult Blood Urine Nitrate Urine Bilirubin Urine Urobilinogen Ur Leukocyte Esterase Urine RBC Urine WBC Urine WBC [place] Amorphous Sediment Urine Bacteria Urine Mucus Micro UA Comment Ur Microscopic Review Urine Culture Comments Nasal Screen MRSA (PCR) 02/02/18 02/02/18 02/02/18 20:04 20:59 22:22 WBC RBC Hgb Hct MCV MCH MCHC RDW Plt Count MPV Prelim Diff (Auto) Neut % (Auto) Lymph % (Auto) [place] % (Auto) Eos % (Auto) Baso % (Auto) Neut # (Auto) Lymph # (Auto) [place] # (Auto) Eos # (Auto) Baso # (Auto) WBC Differential Seg Neuts % (Manual) Band Neuts % (Manual) Lymphocytes % (Manual) Monocytes % (Manual) Eosinophils % (Manual) Abs Neuts (Manual) Differential Comment Toxic Granulation Platelet Estimate Platelet Morphology APTT Puncture Site Patient Temperature O2 Saturation ABG pH ABG pCO2 ABG pO2 ABG HCO3 ABG O2 Content ABG Base Excess ABG Methemoglobin [place] Test Hemoglobin Carboxyhemoglobin O2 Delivery Device Liter Flow Vent Setting Inspired O2 Critical Value Sodium Potassium Chloride Carbon Dioxide Anion Gap BUN Creatinine Estimated GFR POC Glucose 224 H 204 H 199 H Random Glucose Hemoglobin A1c Lactic Acid Calcium Magnesium Total Creatine Kinase CK-MB (CK-2) CK-MB (CK-2) % Troponin I B-Natriuretic Peptide Urine Color Urine Clarity Urine pH Ur Specific [place] Urine Protein Urine Glucose (UA) Urine Ketones Urine Occult Blood Urine Nitrate Urine Bilirubin Urine Urobilinogen Ur Leukocyte Esterase Urine RBC Urine WBC Urine WBC [place] Amorphous Sediment Urine Bacteria Urine Mucus Micro UA Comment Ur Microscopic Review Urine Culture Comments Nasal Screen MRSA (PCR) 02/02/18 02/03/18 02/03/18 23:15 00:12 01:28 EST WBC RBC Hgb Hct MCV MCH MCHC RDW Plt Count MPV Prelim Diff (Auto) Neut % (Auto) Lymph % (Auto) [place] % (Auto) Eos % (Auto) Baso % (Auto) Neut # (Auto) Lymph # (Auto) [place] # (Auto) Eos # (Auto) Baso # (Auto) WBC Differential Seg Neuts % (Manual) Band Neuts % (Manual) Lymphocytes % (Manual) Monocytes % (Manual) Eosinophils % (Manual) Abs Neuts (Manual) Differential Comment Toxic Granulation Platelet Estimate Platelet Morphology APTT Puncture Site Patient Temperature O2 Saturation ABG pH ABG pCO2 ABG pO2 ABG HCO3 ABG O2 Content ABG Base Excess ABG Methemoglobin [place] Test Hemoglobin Carboxyhemoglobin O2 Delivery Device Liter Flow Vent Setting Inspired O2 Critical Value Sodium Potassium Chloride Carbon Dioxide Anion Gap BUN Creatinine Estimated GFR POC Glucose 164 H 165 H 143 H Random Glucose Hemoglobin A1c Lactic Acid Calcium Magnesium Total Creatine Kinase CK-MB (CK-2) CK-MB (CK-2) % Troponin I B-Natriuretic Peptide Urine Color Urine Clarity Urine pH Ur Specific [place] Urine Protein Urine Glucose (UA) Urine Ketones Urine Occult Blood Urine Nitrate Urine Bilirubin Urine Urobilinogen Ur Leukocyte Esterase Urine RBC Urine WBC Urine WBC [place] Amorphous Sediment Urine Bacteria Urine Mucus Micro UA Comment Ur Microscopic Review Urine Culture Comments Nasal Screen MRSA (PCR) 02/03/18 02/03/18 02/03/18 02:13 02:37 02:37 WBC RBC Hgb Hct MCV MCH MCHC RDW Plt Count MPV Prelim Diff (Auto) Neut % (Auto) Lymph % (Auto) [place] % (Auto) Eos % (Auto) Baso % (Auto) Neut # (Auto) Lymph # (Auto) [place] # (Auto) Eos # (Auto) Baso # (Auto) WBC Differential Seg Neuts % (Manual) Band Neuts % (Manual) Lymphocytes % (Manual) Monocytes % (Manual) Eosinophils % (Manual) Abs Neuts (Manual) Differential Comment Toxic Granulation Platelet Estimate Platelet Morphology APTT 35.9 H Puncture Site Patient Temperature O2 Saturation ABG pH ABG pCO2 ABG pO2 ABG HCO3 ABG O2 Content ABG Base Excess ABG Methemoglobin [place] Test Hemoglobin Carboxyhemoglobin O2 Delivery Device Liter Flow Vent Setting Inspired O2 Critical Value Sodium Potassium Chloride Carbon Dioxide Anion Gap BUN Creatinine Estimated GFR POC Glucose 142 H Random Glucose Hemoglobin A1c Lactic Acid Calcium Magnesium Total Creatine Kinase CK-MB (CK-2) CK-MB (CK-2) % Troponin I B-Natriuretic Peptide 858 H Urine Color Urine Clarity Urine pH Ur Specific [place] Urine Protein Urine Glucose (UA) Urine Ketones Urine Occult Blood Urine Nitrate Urine Bilirubin Urine Urobilinogen Ur Leukocyte Esterase Urine RBC Urine WBC Urine WBC [place] Amorphous Sediment Urine Bacteria Urine Mucus Micro UA Comment Ur Microscopic Review Urine Culture Comments Nasal Screen MRSA (PCR) 02/03/18 02/03/18 02/03/18 02:50 02:50 02:50 WBC 15.2 H RBC 4.40 Hgb 12.8 Hct 38.7 MCV 88.0 MCH 29.2 MCHC 33.2 RDW 16.3 Plt Count 209 D MPV 10.4 Prelim Diff (Auto) Neut % (Auto) 74.8 H Lymph % (Auto) 12.8 [place] % (Auto) 9.5 H Eos % (Auto) 1.4 Baso % (Auto) 1.5 Neut # (Auto) 11.3 H Lymph # (Auto) 1.9 [place] # (Auto) 1.4 H Eos # (Auto) 0.2 Baso # (Auto) 0.2 WBC Differential . Seg Neuts % (Manual) Band Neuts % (Manual) Lymphocytes % (Manual) Monocytes % (Manual) Eosinophils % (Manual) Abs Neuts (Manual) Differential Comment Auto diff final Toxic Granulation Platelet Estimate Platelet Morphology APTT Puncture Site Patient Temperature O2 Saturation ABG pH ABG pCO2 ABG pO2 ABG HCO3 ABG O2 Content ABG Base Excess ABG Methemoglobin [place] Test Hemoglobin Carboxyhemoglobin O2 Delivery Device Liter Flow Vent Setting Inspired O2 Critical Value Sodium 138 Potassium 4.2 Chloride 106 Carbon Dioxide 22.3 Anion Gap 10 BUN 39 H Creatinine 1.77 H Estimated GFR 27 L POC Glucose Random Glucose 156 H Hemoglobin A1c Lactic Acid Calcium 8.6 Magnesium 2.2 Total Creatine Kinase 579 H CK-MB (CK-2) 11.7 H CK-MB (CK-2) % 2.0 Troponin I 16.90 H* D B-Natriuretic Peptide Urine Color Urine Clarity Urine pH Ur Specific [place] Urine Protein Urine Glucose (UA) Urine Ketones Urine Occult Blood Urine Nitrate Urine Bilirubin Urine Urobilinogen Ur Leukocyte Esterase Urine RBC Urine WBC Urine WBC Clumps Amorphous Sediment Urine Bacteria Urine Mucus Micro UA Comment Ur Microscopic Review Urine Culture Comments Nasal Screen MRSA (PCR) 02/03/18 02/03/18 02/03/18 02:58 04:07 04:07 WBC RBC Hgb Hct MCV MCH MCHC RDW Plt Count MPV Prelim Diff (Auto) Neut % (Auto) Lymph % (Auto) [place] % (Auto) Eos % (Auto) Baso % (Auto) Neut # (Auto) Lymph # (Auto) [place] # (Auto) Eos # (Auto) Baso # (Auto) WBC Differential Seg Neuts % (Manual) Band Neuts % (Manual) Lymphocytes % (Manual) Monocytes % (Manual) Eosinophils % (Manual) Abs Neuts (Manual) Differential Comment Toxic Granulation Platelet Estimate Platelet Morphology APTT Puncture Site Left radial Patient Temperature 98.6 O2 Saturation 97 ABG pH 7.44 H ABG pCO2 30 L ABG pO2 145 H ABG HCO3 20 L ABG O2 Content 18.8 ABG Base Excess -3.7 L ABG Methemoglobin 1.1 [place] Test Present Hemoglobin 13.6 Carboxyhemoglobin 1.1 O2 Delivery Device Ventilator Liter Flow Vent Setting See comment Inspired O2 45 Critical Value No Sodium Potassium Chloride Carbon Dioxide Anion Gap BUN Creatinine Estimated GFR POC Glucose 164 H 169 H Random Glucose Hemoglobin A1c Lactic Acid Calcium Magnesium Total Creatine Kinase CK-MB (CK-2) CK-MB (CK-2) % Troponin I B-Natriuretic Peptide Urine Color Urine Clarity Urine pH Ur Specific [place] Urine Protein Urine Glucose (UA) Urine Ketones Urine Occult Blood Urine Nitrate Urine Bilirubin Urine Urobilinogen Ur Leukocyte Esterase Urine RBC Urine WBC Urine WBC [place] Amorphous Sediment Urine Bacteria Urine Mucus Micro UA Comment Ur Microscopic Review Urine Culture Comments Nasal Screen MRSA (PCR) 02/03/18 02/03/18 02/03/18 05:54 06:42 08:15 WBC RBC Hgb Hct MCV MCH MCHC RDW Plt Count MPV Prelim Diff (Auto) Neut % (Auto) Lymph % (Auto) [place] % (Auto) Eos % (Auto) Baso % (Auto) Neut # (Auto) Lymph # (Auto) [place] # (Auto) Eos # (Auto) Baso # (Auto) WBC Differential Seg Neuts % (Manual) Band Neuts % (Manual) Lymphocytes % (Manual) Monocytes % (Manual) Eosinophils % (Manual) Abs Neuts (Manual) Differential Comment Toxic Granulation Platelet Estimate Platelet Morphology APTT Puncture Site Patient Temperature O2 Saturation ABG pH ABG pCO2 ABG pO2 ABG HCO3 ABG O2 Content ABG Base Excess ABG Methemoglobin [place] Test Hemoglobin Carboxyhemoglobin O2 Delivery Device Liter Flow Vent Setting Inspired O2 Critical Value Sodium Potassium Chloride Carbon Dioxide Anion Gap BUN Creatinine Estimated GFR POC Glucose 207 H 182 H Random Glucose Hemoglobin A1c Lactic Acid Calcium Magnesium Total Creatine Kinase 429 H CK-MB (CK-2) 8.6 H CK-MB (CK-2) % 2.0 Troponin I 10.20 H* D B-Natriuretic Peptide Urine Color Urine Clarity Urine pH Ur Specific [place] Urine Protein Urine Glucose (UA) Urine Ketones Urine Occult Blood Urine Nitrate Urine Bilirubin Urine Urobilinogen Ur Leukocyte Esterase Urine RBC Urine WBC Urine WBC [place] Amorphous Sediment Urine Bacteria Urine Mucus Micro UA Comment Ur Microscopic Review Urine Culture Comments Nasal Screen MRSA (PCR) 02/03/18 02/03/18 02/03/18 08:29 09:14 11:08 WBC RBC Hgb Hct MCV MCH MCHC RDW Plt Count MPV Prelim Diff (Auto) Neut % (Auto) Lymph % (Auto) [place] % (Auto) Eos % (Auto) Baso % (Auto) Neut # (Auto) Lymph # (Auto) [place] # (Auto) Eos # (Auto) Baso # (Auto) WBC Differential Seg Neuts % (Manual) Band Neuts % (Manual) Lymphocytes % (Manual) Monocytes % (Manual) Eosinophils % (Manual) Abs Neuts (Manual) Differential Comment Toxic Granulation Platelet Estimate Platelet Morphology APTT Puncture Site Patient Temperature O2 Saturation ABG pH ABG pCO2 ABG pO2 ABG HCO3 ABG O2 Content ABG Base Excess ABG Methemoglobin [place] Test Hemoglobin Carboxyhemoglobin O2 Delivery Device Liter Flow Vent Setting Inspired O2 Critical Value Sodium Potassium Chloride Carbon Dioxide Anion Gap BUN Creatinine Estimated GFR POC Glucose 169 H 161 H 185 H Random Glucose Hemoglobin A1c Lactic Acid Calcium Magnesium Total Creatine Kinase CK-MB (CK-2) CK-MB (CK-2) % Troponin I B-Natriuretic Peptide Urine Color Urine Clarity Urine pH Ur Specific [place] Urine Protein Urine Glucose (UA) Urine Ketones Urine Occult Blood Urine Nitrate Urine Bilirubin Urine Urobilinogen Ur Leukocyte Esterase Urine RBC Urine WBC Urine WBC [place] Amorphous Sediment Urine Bacteria Urine Mucus Micro UA Comment Ur Microscopic Review Urine Culture Comments Nasal Screen MRSA (PCR) 02/03/18 02/03/18 02/03/18 12:06 12:20 13:09 WBC RBC Hgb Hct MCV MCH MCHC RDW Plt Count MPV Prelim Diff (Auto) Neut % (Auto) Lymph % (Auto) [place] % (Auto) Eos % (Auto) Baso % (Auto) Neut # (Auto) Lymph # (Auto) [place] # (Auto) Eos # (Auto) Baso # (Auto) WBC Differential Seg Neuts % (Manual) Band Neuts % (Manual) Lymphocytes % (Manual) Monocytes % (Manual) Eosinophils % (Manual) Abs Neuts (Manual) Differential Comment Toxic Granulation Platelet Estimate Platelet Morphology APTT Puncture Site Patient Temperature O2 Saturation ABG pH ABG pCO2 ABG pO2 ABG HCO3 ABG O2 Content ABG Base Excess ABG Methemoglobin [place] Test Hemoglobin Carboxyhemoglobin O2 Delivery Device Liter Flow Vent Setting Inspired O2 Critical Value Sodium Potassium Chloride Carbon Dioxide Anion Gap BUN Creatinine Estimated GFR POC Glucose 174 H 119 H 173 H Random Glucose Hemoglobin A1c Lactic Acid Calcium Magnesium Total Creatine Kinase CK-MB (CK-2) CK-MB (CK-2) % Troponin I B-Natriuretic Peptide Urine Color Urine Clarity Urine pH Ur Specific [place] Urine Protein Urine Glucose (UA) Urine Ketones Urine Occult Blood Urine Nitrate Urine Bilirubin Urine Urobilinogen Ur Leukocyte Esterase Urine RBC Urine WBC Urine WBC [place] Amorphous Sediment Urine Bacteria Urine Mucus Micro UA Comment Ur Microscopic Review Urine Culture Comments Nasal Screen MRSA (PCR) 02/03/18 02/03/18 02/03/18 14:27 15:14 15:36 WBC RBC Hgb Hct MCV MCH MCHC RDW Plt Count MPV Prelim Diff (Auto) Neut % (Auto) Lymph % (Auto) [place] % (Auto) Eos % (Auto) Baso % (Auto) Neut # (Auto) Lymph # (Auto) [place] # (Auto) Eos # (Auto) Baso # (Auto) WBC Differential Seg Neuts % (Manual) Band Neuts % (Manual) Lymphocytes % (Manual) Monocytes % (Manual) Eosinophils % (Manual) Abs Neuts (Manual) Differential Comment Toxic Granulation Platelet Estimate Platelet Morphology APTT Puncture Site Patient Temperature O2 Saturation ABG pH ABG pCO2 ABG pO2 ABG HCO3 ABG O2 Content ABG Base Excess ABG Methemoglobin [place] Test Hemoglobin Carboxyhemoglobin O2 Delivery Device Liter Flow Vent Setting Inspired O2 Critical Value Sodium Potassium Chloride Carbon Dioxide Anion Gap BUN Creatinine Estimated GFR POC Glucose 166 H 174 H 158 H Random Glucose Hemoglobin A1c Lactic Acid Calcium Magnesium Total Creatine Kinase CK-MB (CK-2) CK-MB (CK-2) % Troponin I B-Natriuretic Peptide Urine Color Urine Clarity Urine pH Ur Specific [place] Urine Protein Urine Glucose (UA) Urine Ketones Urine Occult Blood Urine Nitrate Urine Bilirubin Urine Urobilinogen Ur Leukocyte Esterase Urine RBC Urine WBC Urine WBC [place] Amorphous Sediment Urine Bacteria Urine Mucus Micro UA Comment Ur Microscopic Review Urine Culture Comments Nasal Screen MRSA (PCR) 02/03/18 02/03/18 02/03/18 18:37 18:56 19:32 WBC RBC Hgb Hct MCV MCH MCHC RDW Plt Count MPV Prelim Diff (Auto) Neut % (Auto) Lymph % (Auto) [place] % (Auto) Eos % (Auto) Baso % (Auto) Neut # (Auto) Lymph # (Auto) [place] # (Auto) Eos # (Auto) Baso # (Auto) WBC Differential Seg Neuts % (Manual) Band Neuts % (Manual) Lymphocytes % (Manual) Monocytes % (Manual) Eosinophils % (Manual) Abs Neuts (Manual) Differential Comment Toxic Granulation Platelet Estimate Platelet Morphology APTT Puncture Site Patient Temperature O2 Saturation ABG pH ABG pCO2 ABG pO2 ABG HCO3 ABG O2 Content ABG Base Excess ABG Methemoglobin [place] Test Hemoglobin Carboxyhemoglobin O2 Delivery Device Liter Flow Vent Setting Inspired O2 Critical Value Sodium Potassium Chloride Carbon Dioxide Anion Gap BUN Creatinine Estimated GFR POC Glucose 143 H 142 H 138 H Random Glucose Hemoglobin A1c Lactic Acid Calcium Magnesium Total Creatine Kinase CK-MB (CK-2) CK-MB (CK-2) % Troponin I B-Natriuretic Peptide Urine Color Urine Clarity Urine pH Ur Specific [place] Urine Protein Urine Glucose (UA) Urine Ketones Urine Occult Blood Urine Nitrate Urine Bilirubin Urine Urobilinogen Ur Leukocyte Esterase Urine RBC Urine WBC Urine WBC [place] Amorphous Sediment Urine Bacteria Urine Mucus Micro UA Comment Ur Microscopic Review Urine Culture Comments Nasal Screen MRSA (PCR) 02/03/18 02/03/18 02/03/18 20:45 21:20 22:05 WBC RBC Hgb Hct MCV MCH MCHC RDW Plt Count MPV Prelim Diff (Auto) Neut % (Auto) Lymph % (Auto) [place] % (Auto) Eos % (Auto) Baso % (Auto) Neut # (Auto) Lymph # (Auto) [place] # (Auto) Eos # (Auto) Baso # (Auto) WBC Differential Seg Neuts % (Manual) Band Neuts % (Manual) Lymphocytes % (Manual) Monocytes % (Manual) Eosinophils % (Manual) Abs Neuts (Manual) Differential Comment Toxic Granulation Platelet Estimate Platelet Morphology APTT Puncture Site Patient Temperature O2 Saturation ABG pH ABG pCO2 ABG pO2 ABG HCO3 ABG O2 Content ABG Base Excess ABG Methemoglobin [place] Test Hemoglobin Carboxyhemoglobin O2 Delivery Device Liter Flow Vent Setting Inspired O2 Critical Value Sodium Potassium Chloride Carbon Dioxide Anion Gap BUN Creatinine Estimated GFR POC Glucose 149 H 173 H Random Glucose Hemoglobin A1c Lactic Acid 2.3 H Calcium Magnesium Total Creatine Kinase CK-MB (CK-2) CK-MB (CK-2) % Troponin I B-Natriuretic Peptide Urine Color Urine Clarity Urine pH Ur Specific [place] Urine Protein Urine Glucose (UA) Urine Ketones Urine Occult Blood Urine Nitrate Urine Bilirubin Urine Urobilinogen Ur Leukocyte Esterase Urine RBC Urine WBC Urine WBC [place] Amorphous Sediment Urine Bacteria Urine Mucus Micro UA Comment Ur Microscopic Review Urine Culture Comments Nasal Screen MRSA (PCR) 02/03/18 02/04/18 02/04/18 23:08 00:18 01:08 WBC RBC Hgb Hct MCV MCH MCHC RDW Plt Count MPV Prelim Diff (Auto) Neut % (Auto) Lymph % (Auto) [place] % (Auto) Eos % (Auto) Baso % (Auto) Neut # (Auto) Lymph # (Auto) [place] # (Auto) Eos # (Auto) Baso # (Auto) WBC Differential Seg Neuts % (Manual) Band Neuts % (Manual) Lymphocytes % (Manual) Monocytes % (Manual) Eosinophils % (Manual) Abs Neuts (Manual) Differential Comment Toxic Granulation Platelet Estimate Platelet Morphology APTT Puncture Site Patient Temperature O2 Saturation ABG pH ABG pCO2 ABG pO2 ABG HCO3 ABG O2 Content ABG Base Excess ABG Methemoglobin [place] Test Hemoglobin Carboxyhemoglobin O2 Delivery Device Liter Flow Vent Setting Inspired O2 Critical Value Sodium Potassium Chloride Carbon Dioxide Anion Gap BUN Creatinine Estimated GFR POC Glucose 159 H 161 H 139 H Random Glucose Hemoglobin A1c Lactic Acid Calcium Magnesium Total Creatine Kinase CK-MB (CK-2) CK-MB (CK-2) % Troponin I B-Natriuretic Peptide Urine Color Urine Clarity Urine pH Ur Specific [place] Urine Protein Urine Glucose (UA) Urine Ketones Urine Occult Blood Urine Nitrate Urine Bilirubin Urine Urobilinogen Ur Leukocyte Esterase Urine RBC Urine WBC Urine WBC [place] Amorphous Sediment Urine Bacteria Urine Mucus Micro UA Comment Ur Microscopic Review Urine Culture Comments Nasal Screen MRSA (PCR) 02/04/18 02/04/18 02/04/18 02:28 03:28 04:38 WBC RBC Hgb Hct MCV MCH MCHC RDW Plt Count MPV Prelim Diff (Auto) Neut % (Auto) Lymph % (Auto) [place] % (Auto) Eos % (Auto) Baso % (Auto) Neut # (Auto) Lymph # (Auto) [place] # (Auto) Eos # (Auto) Baso # (Auto) WBC Differential Seg Neuts % (Manual) Band Neuts % (Manual) Lymphocytes % (Manual) Monocytes % (Manual) Eosinophils % (Manual) Abs Neuts (Manual) Differential Comment Toxic Granulation Platelet Estimate Platelet Morphology APTT Puncture Site Patient Temperature O2 Saturation ABG pH ABG pCO2 ABG pO2 ABG HCO3 ABG O2 Content ABG Base Excess ABG Methemoglobin [place] Test Hemoglobin Carboxyhemoglobin O2 Delivery Device Liter Flow Vent Setting Inspired O2 Critical Value Sodium Potassium Chloride Carbon Dioxide Anion Gap BUN Creatinine Estimated GFR POC Glucose 154 H 165 H 153 H Random Glucose Hemoglobin A1c Lactic Acid Calcium Magnesium Total Creatine Kinase CK-MB (CK-2) CK-MB (CK-2) % Troponin I B-Natriuretic Peptide Urine Color Urine Clarity Urine pH Ur Specific [place] Urine Protein Urine Glucose (UA) Urine Ketones Urine Occult Blood Urine Nitrate Urine Bilirubin Urine Urobilinogen Ur Leukocyte Esterase Urine RBC Urine WBC Urine WBC [place] Amorphous Sediment Urine Bacteria Urine Mucus Micro UA Comment Ur Microscopic Review Urine Culture Comments Nasal Screen MRSA (PCR) 02/04/18 02/04/18 02/04/18 04:49 04:49 05:32 WBC 9.2 RBC 3.86 L Hgb 11.4 L Hct 33.9 L MCV 87.9 MCH 29.5 MCHC 33.5 RDW 16.5 Plt Count 176 MPV 10.5 Prelim Diff (Auto) Neut % (Auto) 76.2 H Lymph % (Auto) 12.4 [place] % (Auto) 9.5 H Eos % (Auto) 1.6 Baso % (Auto) 0.3 Neut # (Auto) 7.0 Lymph # (Auto) 1.1 [place] # (Auto) 0.9 Eos # (Auto) 0.1 Baso # (Auto) 0.0 WBC Differential . Seg Neuts % (Manual) Band Neuts % (Manual) Lymphocytes % (Manual) Monocytes % (Manual) Eosinophils % (Manual) Abs Neuts (Manual) Differential Comment Auto diff final Toxic Granulation Platelet Estimate Platelet Morphology APTT Puncture Site Patient Temperature O2 Saturation ABG pH ABG pCO2 ABG pO2 ABG HCO3 ABG O2 Content ABG Base Excess ABG Methemoglobin [place] Test Hemoglobin Carboxyhemoglobin O2 Delivery Device Liter Flow Vent Setting Inspired O2 Critical Value Sodium 141 Potassium 4.3 Chloride 111 H Carbon Dioxide 17.9 L Anion Gap 12 BUN 38 H Creatinine 1.30 H Estimated GFR 39 L POC Glucose 154 H Random Glucose 149 H Hemoglobin A1c Lactic Acid Calcium 8.0 L Magnesium Total Creatine Kinase CK-MB (CK-2) CK-MB (CK-2) % Troponin I B-Natriuretic Peptide Urine Color Urine Clarity Urine pH Ur Specific [place] Urine Protein Urine Glucose (UA) Urine Ketones Urine Occult Blood Urine Nitrate Urine Bilirubin Urine Urobilinogen Ur Leukocyte Esterase Urine RBC Urine WBC Urine WBC [place] Amorphous Sediment Urine Bacteria Urine Mucus Micro UA Comment Ur Microscopic Review Urine Culture Comments Nasal Screen MRSA (PCR) 02/04/18 02/04/18 02/04/18 06:13 07:35 08:27 WBC RBC Hgb Hct MCV MCH MCHC RDW Plt Count MPV Prelim Diff (Auto) Neut % (Auto) Lymph % (Auto) [place] % (Auto) Eos % (Auto) Baso % (Auto) Neut # (Auto) Lymph # (Auto) [place] # (Auto) Eos # (Auto) Baso # (Auto) WBC Differential Seg Neuts % (Manual) Band Neuts % (Manual) Lymphocytes % (Manual) Monocytes % (Manual) Eosinophils % (Manual) Abs Neuts (Manual) Differential Comment Toxic Granulation Platelet Estimate Platelet Morphology APTT Puncture Site Patient Temperature O2 Saturation ABG pH ABG pCO2 ABG pO2 ABG HCO3 ABG O2 Content ABG Base Excess ABG Methemoglobin [place] Test Hemoglobin Carboxyhemoglobin O2 Delivery Device Liter Flow Vent Setting Inspired O2 Critical Value Sodium Potassium Chloride Carbon Dioxide Anion Gap BUN Creatinine Estimated GFR POC Glucose 175 H 157 H 165 H Random Glucose Hemoglobin A1c Lactic Acid Calcium Magnesium Total Creatine Kinase CK-MB (CK-2) CK-MB (CK-2) % Troponin I B-Natriuretic Peptide Urine Color Urine Clarity Urine pH Ur Specific [place] Urine Protein Urine Glucose (UA) Urine Ketones Urine Occult Blood Urine Nitrate Urine Bilirubin Urine Urobilinogen Ur Leukocyte Esterase Urine RBC Urine WBC Urine WBC [place] Amorphous Sediment Urine Bacteria Urine Mucus Micro UA Comment Ur Microscopic Review Urine Culture Comments Nasal Screen MRSA (PCR) 02/04/18 02/04/18 09:41 11:45 WBC RBC Hgb Hct MCV MCH MCHC RDW Plt Count MPV Prelim Diff (Auto) Neut % (Auto) Lymph % (Auto) [place] % (Auto) Eos % (Auto) Baso % (Auto) Neut # (Auto) Lymph # (Auto) [place] # (Auto) Eos # (Auto) Baso # (Auto) WBC Differential Seg Neuts % (Manual) Band Neuts % (Manual) Lymphocytes % (Manual) Monocytes % (Manual) Eosinophils % (Manual) Abs Neuts (Manual) Differential Comment Toxic Granulation Platelet Estimate Platelet Morphology APTT Puncture Site Patient Temperature O2 Saturation ABG pH ABG pCO2 ABG pO2 ABG HCO3 ABG O2 Content ABG Base Excess ABG Methemoglobin [place] Test Hemoglobin Carboxyhemoglobin O2 Delivery Device Liter Flow Vent Setting Inspired O2 Critical Value Sodium Potassium Chloride Carbon Dioxide Anion Gap BUN Creatinine Estimated GFR POC Glucose 160 H 167 H Random Glucose Hemoglobin A1c Lactic Acid Calcium Magnesium Total Creatine Kinase CK-MB (CK-2) CK-MB (CK-2) % Troponin I B-Natriuretic Peptide Urine Color Urine Clarity Urine pH Ur Specific [place] Urine Protein Urine Glucose (UA) Urine Ketones Urine Occult Blood Urine Nitrate Urine Bilirubin Urine Urobilinogen Ur Leukocyte Esterase Urine RBC Urine WBC Urine WBC Cl[place] Amorphous Sediment Urine Bacteria Urine Mucus Micro UA Comment Ur Microscopic Review Urine Culture Comments Nasal Screen MRSA (PCR) Result Diagrams: 02/04/18 04:49 02/04/18 04:49 Microbiology: Microbiology 02/02/18 12:45 Gram Stain - Final Sputum - Endotracheal Sputum Culture - Final Moderate growth normal respiratory yue 02/03/18 02:37 Aerobic Blood Culture - Preliminary Blood - Peripheral No growth in 1 day Anaerobic Blood Culture - Preliminary No growth in 1 day 02/02/18 23:05 Aerobic Blood Culture - Preliminary Blood - Peripheral No growth in 2 days Anaerobic Blood Culture - Final QNS - See aerobic report. 01/31/18 21:38 Aerobic Blood Culture - Preliminary Blood - Peripheral No growth in 4 days Anaerobic Blood Culture - Preliminary No growth in 4 days 01/31/18 21:43 Aerobic Blood Culture - Preliminary Blood - Peripheral No growth in 4 days Anaerobic Blood Culture - Preliminary No growth in 4 days 02/02/18 09:00 Urine Culture - Final Clean Catch Urine Escherichia coli ESBL positive Multidrug Resistant Imaging: Chest X-Ray 01/31/18 02:15 CONCLUSION: No significant change mild left base atelectasis. Otherwise within normal limits. Abdomen/Bladder Ultrasound 02/02/18 00:00 CONCLUSION: 1. Increased renal echogenicity typical of chronic parenchymal changes. 2. No evidence of acute obstructive uropathy. 3. Small bilateral benign-appearing cysts. Abdomen/Pelvis CT 02/02/18 00:00 CONCLUSION: 1. No acute abnormalities are seen in the abdomen or pelvis. 2. Mildly atrophic left kidney with vascular calcifications. 3. Aortoiliac atherosclerosis. No aneurysm. 4. Cholelithiasis. 5. Bilateral small pleural effusions and mild to moderate basilar atelectasis. 6. Coronary artery calcification. 7. Nonspecific mass of the visualized left breast. Last mammogram in our system was 2012. Up-to-date bilateral mammography with a diagnostic left breast mammogram recommended. Chest X-Ray 02/02/18 00:00 CONCLUSION: Worsening aeration Chest X-Ray 02/02/18 00:00 CONCLUSION: 1. Endotracheal tube and nasogastric tube in place. 2. Slight increase in hazy opacity at the right lung base. Patchy opacity left lung base partially visualized. Chest X-Ray 02/03/18 00:00 CONCLUSION: Endotracheal tube tip is a bit deep Improving aeration Chest X-Ray 02/04/18 10:43 CONCLUSION: Minimal left basilar density and probable small pleural effusion. Procedures: 02/02: Intubation . Assessment and Plan Pertinent Non-Medical Issues: Psychosocial: She was born in [facility] and lived there most of her life. She was however her passed in 1983. She moved to [place] in the early s. 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 She has 1 son. Spiritual: [place] available. Legal: Living will on the chart with healthcare surrogate. Ethical issues impacting care: None noted. . Important Contacts: Granddaughter: Treva Arvizu Son: Vicky Arvizu . Prognosis: Her prognosis is guarded. She is of advanced age at 87 and showing signs of decline. In addition to renal insufficiency she has multiple cardiac risk factors to include hypertension, hyperlipidemia, obesity with BMI 30.8 kg/m, uncontrolled diabetes with a hemoglobin A1c greater than 9 and evidence of at minimum a non-STEMI. Cardiac catheterization per the product marketing analyst report would be a high risk/"heroic" procedure. She is also febrile with no known source of infection. Urinalysis has been negative on 01/29 and 01/31, influenza is negative and blood cultures are negative times 1 day. Empiric antibiotic coverage is being initiated as cultures are pending. She is at increased risk of continued hospitalizations, complications and decline. . Code Status: Full Code Plan: PLAN: Legal decision maker: Patient at this time is confused and not capacitated for decision-making. It is uncertain if she will regain capacity. Living will and healthcare surrogate on the chart name her granddaughter Treva and Treva's brother Gonzalez as joint healthcare surrogate's. Gonzalez is a member of the [employer] currently regarding the president and unavailable. Goals: Aggressive CODE STATUS: FULL CODE SYMPTOMS: * Chest pain: No chest pain status post left heart catheterization with stent placement to the LAD. She remains with pulmonary edema, cardiogenic shock requiring vasopressors and positive inotropes. Milrinone and Pedro Luis-Synephrine initiated for support. Cardiology following. * Dyspnea: Currently on mechanical ventilator, awake, following commands. Plan to start spontaneous breathing trials. Palliative care will continue to follow the patient during hospital course as condition evolves, to assist patient/decision-maker with understanding of their medical conditions, weighing benefits/burdens of treatment options, for clarification of goals of treatment. Additionally will assist with any symptoms of palliative concern. . Attestation Attestation: To help prompt me to consider important information that might be impacting today's encounter and assessment, information from prior notes written by myself or my colleagues may have been "brought forward" into today's note. My signature on this note, however, is an attestation that I personally performed the exam, history, and/or decision-making noted today, and, unless otherwise indicated, the interactions with patient, family, and staff as well as the review of records all occurred today. I also attest that the listed assessment and stated plan reflect my best clinical judgment today based on the combination of historical information, prior notes, and today's exam/ interactions. When time spent is documented, it refers only to time spent today by the signer, or if indicated, combined time spent today by collaborating physician/nurse practitioner. .
[2018-02-04 13:36] LABS: ABG Base Excess -4.8 mmol/L (-2-2); ABG PCO2 32 mmHg (38-42); ABG PO2 130 mmHg (61-120)
[2018-02-04] MEDS: Vancomycin Inj 1,000 MG in Sodium Chlor 0.9% Inj 250 ML IV.SIG SCH (15:36)
[2018-02-04 15:54] LABS: Baso % (Auto) 0.3 % (0.0-2.0); Eos # (Auto) 0.1 th/mm3 (0.0-0.4); Eos % (Auto) 1.4 % (0.0-4.0); Hematocrit 31.7 % (35.0-46.0); Hemoglobin 10.9 gm/dL (11.6-15.3); Lymph # (Auto) 0.6 th/mm3 (1.0-4.8); Lymph % (Auto) 6.1 % (9.0-44.0); Mean Corpuscular HGB Conc 34.3 % (32.0-36.0); Mean Corpuscular Hemoglobin 30.6 pg (27.0-34.0); Mean Corpuscular Volume 89.2 fL (80.0-100.0); Mean Platelet Volume 10.1 fL (7.0-11.0); Mono # (Auto) 0.8 th/mm3 (0.0-0.9); Mono % (Auto) 8.2 % (0.0-8.0); Platelet Count 198 th/mm3 (150-450); Red Blood Count 3.56 mil/mm3 (4.00-5.30); Red Cell Distribution Width 16.4 % (11.6-17.2); White Blood Count 9.5 th/mm3 (4.0-11.0)
[2018-02-04 16:22] LABS: Alanine Aminotransferase 20 U/L (10-53); Albumin 2.4 g/dL (3.4-5.0); Anion Gap 13 meq/L (5-15); Aspartate Aminotransferase 37 U/L (15-37); Blood Urea Nitrogen 38 mg/dL (7-18); Calcium 8.4 mg/dL (8.5-10.1); Carbon Dioxide 20.3 meq/L (21.0-32.0); Chloride 111 meq/L (98-107); Glomerular Filtration Rate 42 mL/min (>89); Glucose,Random 191 mg/dL (74-106); Potassium 3.9 meq/L (3.5-5.1); Sodium 144 meq/L (136-145)
[2018-02-04 16:23] LABS: Alkaline Phosphatase 78 U/L (45-117); Total Protein 7.1 g/dL (6.4-8.2)
--- NOTE | 2018-02-04 17:23 | P.PNID ---
Subjective Remarks: remains on vent sp stenting LAD lesion yday good UOP off pressors afebrile growing ESBL + Ecoli in urine Antibiotics: azithro azactam flagyl vanco Allergies/Adverse Reactions: Allergies penicillin G Allergy (Severe, Verified 01/31/18 02:06) UNKNOWN Sulfa (Sulfonamide Antibiotics) Allergy (Severe, Verified 01/31/18 02:06) UNKNOWN ciprofloxacin Adverse Reaction (Verified 02/03/18 11:14) unknown Objective Vital Signs 02/03/18 17:30 02/03/18 17:45 02/03/18 18:00 Temperature 99.9 F H 100.0 F H 100.0 F H Pulse Rate 81 82 82 Respiratory Rate 16 16 16 Blood Pressure 116/56 L 97/53 L Pulse Oximetry 100 100 100 02/03/18 18:30 02/03/18 18:45 02/03/18 19:00 Temperature 100.0 F H 100.0 F H Pulse Rate 83 77 83 Respiratory Rate 16 18 16 Blood Pressure 116/59 L 107/51 L 110/59 L Pulse Oximetry 100 100 100 02/03/18 19:31 02/03/18 20:00 02/03/18 20:19 Temperature 100.4 F H Pulse Rate 83 83 Respiratory Rate 16 16 17 Blood Pressure 92/55 L 111/59 L Pulse Oximetry 100 02/03/18 21:00 02/03/18 22:00 02/03/18 23:00 Temperature 100 F H 100.1 F H Pulse Rate 82 86 86 Respiratory Rate 16 16 16 Blood Pressure 108/57 L 124/60 123/60 Pulse Oximetry 100 02/04/18 00:00 02/04/18 00:13 02/04/18 01:00 Temperature 99.7 F H 99.5 F 99.3 F Pulse Rate 93 H 96 H 96 H Respiratory Rate 16 16 16 Blood Pressure 112/62 Pulse Oximetry 100 100 100 02/04/18 01:13 02/04/18 01:30 02/04/18 02:00 Temperature 99.1 F 99.1 F 99.1 F Pulse Rate 95 H 95 H 94 H Respiratory Rate 16 16 16 Blood Pressure 111/65 Pulse Oximetry 100 100 100 02/04/18 02:13 02/04/18 02:30 02/04/18 03:00 Temperature 99.1 F 99.1 F 99.0 F Pulse Rate 94 H 94 H 87 Respiratory Rate 16 16 16 Blood Pressure 105/63 Pulse Oximetry 100 100 100 02/04/18 03:13 02/04/18 03:30 02/04/18 04:00 Temperature 99.0 F 99.0 F 98.8 F Pulse Rate 90 91 H 85 Respiratory Rate 16 16 17 Blood Pressure 107/82 Pulse Oximetry 100 100 100 02/04/18 04:13 02/04/18 04:16 02/04/18 04:18 Temperature 98.8 F 98.8 F Pulse Rate 84 85 Respiratory Rate 23 18 16 Blood Pressure 88/53 L 111/53 L Pulse Oximetry 100 100 100 02/04/18 04:30 02/04/18 05:00 02/04/18 05:13 Temperature 98.6 F 98.6 F 98.6 F Pulse Rate 81 86 87 Respiratory Rate 20 22 18 Blood Pressure 126/83 Pulse Oximetry 100 100 100 02/04/18 05:30 02/04/18 06:00 02/04/18 06:30 Temperature 98.6 F 98.1 F 98.4 F Pulse Rate 87 87 90 Respiratory Rate 18 17 16 Blood Pressure Pulse Oximetry 100 97 100 02/04/18 07:00 02/04/18 07:21 02/04/18 07:30 Temperature 98.2 F 97.3 F L 97.7 F Pulse Rate 88 88 85 Respiratory Rate 16 17 16 Blood Pressure 106/61 109/55 L Pulse Oximetry 100 96 100 02/04/18 08:00 02/04/18 08:30 02/04/18 09:00 Temperature 97.7 F 97.9 F 97.7 F Pulse Rate 85 87 87 Respiratory Rate 16 16 16 Blood Pressure 100/58 L 113/55 L 104/86 Pulse Oximetry 100 100 100 02/04/18 09:23 02/04/18 09:30 02/04/18 10:00 Temperature 97.9 F 97.9 F Pulse Rate 87 75 Respiratory Rate 16 16 16 Blood Pressure 104/58 L 101/51 L Pulse Oximetry 99 100 100 02/04/18 10:23 02/04/18 10:30 02/04/18 11:00 Temperature 98.1 F 98.1 F Pulse Rate 79 84 Respiratory Rate 17 17 25 H Blood Pressure 104/69 113/85 Pulse Oximetry 98 100 02/04/18 11:30 02/04/18 12:00 02/04/18 12:30 Temperature 98.4 F 98.6 F 98.4 F Pulse Rate 86 90 95 H Respiratory Rate 16 20 18 Blood Pressure 127/60 106/57 L 116/53 L Pulse Oximetry 100 100 100 02/04/18 12:45 02/04/18 13:00 02/04/18 13:15 Temperature 98.4 F 98.4 F 98.4 F Pulse Rate 96 H 103 H 106 H Respiratory Rate 20 21 16 Blood Pressure 111/55 L 111/55 L 110/55 L Pulse Oximetry 100 100 100 02/04/18 13:30 02/04/18 13:45 02/04/18 14:00 Temperature 98.4 F 98.4 F 98.4 F Pulse Rate 114 H 112 H 118 H Respiratory Rate 24 17 21 Blood Pressure 116/57 L 110/76 106/68 Pulse Oximetry 100 100 100 02/04/18 14:15 02/04/18 14:30 02/04/18 14:45 Temperature 98.6 F 98.8 F 99.0 F Pulse Rate 125 H 118 H 118 H Respiratory Rate 25 H 23 27 H Blood Pressure 114/80 108/55 L 99/50 L Pulse Oximetry 100 100 100 02/04/18 15:00 02/04/18 15:15 02/04/18 15:30 Temperature 99.0 F 99.0 F 99.1 F Pulse Rate 110 H 107 H 111 H Respiratory Rate 23 20 21 Blood Pressure 108/55 L 105/64 110/57 L Pulse Oximetry 100 100 100 02/04/18 15:45 02/04/18 16:00 02/04/18 16:15 Temperature 99.1 F 99.1 F 99.3 F Pulse Rate 110 H 109 H 115 H Respiratory Rate 23 21 22 Blood Pressure 114/59 L 118/60 113/55 L Pulse Oximetry 100 100 100 02/04/18 16:30 02/04/18 16:45 02/04/18 17:00 Temperature 99.5 F 99.5 F 99.7 F H Pulse Rate 115 H 111 H 120 H Respiratory Rate 21 24 26 H Blood Pressure 105/51 L 126/70 116/56 L Pulse Oximetry 100 100 100 Intake & Output 02/03/18 02/04/18 02/04/18 18:59 06:59 18:59 Intake Total 1730 / 1730 1100 / 1100 200 / 200 Output Total 975 / 975 1300 / 1300 Balance 755 / 755 -200 / -200 200 / 200 Weight 89.3 kg Intake: IV 1550 / 1550 1100 / 1100 200 / 200 Heparin/D5W 25,000 U/250 mL 25, 50 / 50 000 unit In 250 ml @ Per Protocol IV.CONT TITRATE PRN Rx #:[id number] Diprivan 1000 mg/100 ml Inj 1, 100 / 100 200 / 200 100 / 100 000 mg In 100 ml @ 5 MCG/KG/MIN 2.55 mls/hr IV.CONT TITRATE PRN Rx#:[id number] NS Inj 500 ML @ 30 mls/hr IV. 500 / 500 500 / 500 CONT .[id number] TATYANA Rx#:[id number] Azithromycin Inj 500 MG In NS 250 / 250 Inj 250 ML @ 250 mls/hr IV.SIG Q24H TATYANA Rx#:[id number] Azactam Inj 2,000 GM In NS Inj 200 / 200 300 / 300 100 ML @ 200 mls/hr IV.SIG Q6H TATYANA Rx#:[id number] Vancomycin Inj 1,000 MG In NS 250 / 250 Inj 250 ML @ 250 mls/hr IV.SIG Q24H TATYANA Rx#:[id number] Flagyl 500 MG Inj 100 ML @ 100 200 / 200 100 / 100 100 / 100 mls/hr IV.SIG Q8H TATYANA Rx#: [id number] Water Bolus Amount 180 / 180 Output: Urine Amount (Catheter) 975 / 975 1300 / 1300 Indwelling Temp Sensing 975 / 975 1300 / 1300 Catheter Other: Date of Last Bowel Movement 01/31/18 01/31/18 01/31/18 02/02/18 12:45 Sputum - Endotracheal Gram Stain - Final 02/02/18 12:45 Sputum - Endotracheal Sputum Culture - Final Moderate growth normal respiratory yue 02/03/18 02:37 Blood - Peripheral Aerobic Blood Culture - Preliminary No growth in 1 day 02/03/18 02:37 Blood - Peripheral Anaerobic Blood Culture - Preliminary No growth in 1 day 02/02/18 23:05 Blood - Peripheral Aerobic Blood Culture - Preliminary No growth in 2 days 02/02/18 23:05 Blood - Peripheral Anaerobic Blood Culture - Final QNS - See aerobic report. 01/31/18 21:38 Blood - Peripheral Aerobic Blood Culture - Preliminary No growth in 4 days 01/31/18 21:38 Blood - Peripheral Anaerobic Blood Culture - Preliminary No growth in 4 days 01/31/18 21:43 Blood - Peripheral Aerobic Blood Culture - Preliminary No growth in 4 days 01/31/18 21:43 Blood - Peripheral Anaerobic Blood Culture - Preliminary No growth in 4 days 02/02/18 09:00 Clean Catch Urine Urine Culture - Final Escherichia coli ESBL positive Multidrug Resistant Lab - Hematology Results 02/03/18 02/04/18 02/04/18 02:50 04:49 15:37 WBC 15.2 H 9.2 9.5 RBC 4.40 3.86 L 3.56 L Hgb 12.8 11.4 L 10.9 L Hct 38.7 33.9 L 31.7 L MCV 88.0 87.9 89.2 MCH 29.2 29.5 30.6 MCHC 33.2 33.5 34.3 RDW 16.3 16.5 16.4 Plt Count 209 D 176 198 MPV 10.4 10.5 10.1 Neut % (Auto) 74.8 H 76.2 H 84.0 H Lymph % (Auto) 12.8 12.4 6.1 L [place] % (Auto) 9.5 H 9.5 H 8.2 H Eos % (Auto) 1.4 1.6 1.4 Baso % (Auto) 1.5 0.3 0.3 Neut # (Auto) 11.3 H 7.0 8.0 H Lymph # (Auto) 1.9 1.1 0.6 L [place] # (Auto) 1.4 H 0.9 0.8 Eos # (Auto) 0.2 0.1 0.1 Baso # (Auto) 0.2 0.0 0.0 WBC Differential . . . Differential Comment Auto diff final Auto diff final Auto diff final Lab - Chemistry Results 01/31/18 02/02/18 02/02/18 11:01 18:12 18:32 Sodium Potassium Chloride Carbon Dioxide Anion Gap BUN Creatinine Estimated GFR POC Glucose 283 H Random Glucose Hemoglobin A1c 7.8 H Lactic Acid Calcium Magnesium Total Bilirubin AST ALT Alkaline Phosphatase Total Creatine Kinase CK-MB (CK-2) CK-MB (CK-2) % Troponin I 15.80 H* D B-Natriuretic Peptide Total Protein Albumin 02/02/18 02/02/18 02/02/18 20:04 20:59 22:22 Sodium Potassium Chloride Carbon Dioxide Anion Gap BUN Creatinine Estimated GFR POC Glucose 224 H 204 H 199 H Random Glucose Hemoglobin A1c Lactic Acid Calcium Magnesium Total Bilirubin AST ALT Alkaline Phosphatase Total Creatine Kinase CK-MB (CK-2) CK-MB (CK-2) % Troponin I B-Natriuretic Peptide Total Protein Albumin 02/02/18 02/03/18 02/03/18 23:15 00:12 01:28 EST Sodium Potassium Chloride Carbon Dioxide Anion Gap BUN Creatinine Estimated GFR POC Glucose 164 H 165 H 143 H Random Glucose Hemoglobin A1c Lactic Acid Calcium Magnesium Total Bilirubin AST ALT Alkaline Phosphatase Total Creatine Kinase CK-MB (CK-2) CK-MB (CK-2) % Troponin I B-Natriuretic Peptide Total Protein Albumin 02/03/18 02/03/18 02/03/18 02:13 02:37 02:50 Sodium 138 Potassium 4.2 Chloride 106 Carbon Dioxide 22.3 Anion Gap 10 BUN 39 H Creatinine 1.77 H Estimated GFR 27 L POC Glucose 142 H Random Glucose 156 H Hemoglobin A1c Lactic Acid Calcium 8.6 Magnesium Total Bilirubin AST ALT Alkaline Phosphatase Total Creatine Kinase 579 H CK-MB (CK-2) 11.7 H CK-MB (CK-2) % 2.0 Troponin I 16.90 H* D B-Natriuretic Peptide 858 H Total Protein Albumin 02/03/18 02/03/18 02/03/18 02:50 02:58 04:07 Sodium Potassium Chloride Carbon Dioxide Anion Gap BUN Creatinine Estimated GFR POC Glucose 164 H 169 H Random Glucose Hemoglobin A1c Lactic Acid Calcium Magnesium 2.2 Total Bilirubin AST ALT Alkaline Phosphatase Total Creatine Kinase CK-MB (CK-2) CK-MB (CK-2) % Troponin I B-Natriuretic Peptide Total Protein Albumin 02/03/18 02/03/18 02/03/18 05:54 06:42 08:15 Sodium Potassium Chloride Carbon Dioxide Anion Gap BUN Creatinine Estimated GFR POC Glucose 207 H 182 H Random Glucose Hemoglobin A1c Lactic Acid Calcium Magnesium Total Bilirubin AST ALT Alkaline Phosphatase Total Creatine Kinase 429 H CK-MB (CK-2) 8.6 H CK-MB (CK-2) % 2.0 Troponin I 10.20 H* D B-Natriuretic Peptide Total Protein Albumin 02/03/18 02/03/1818 08:29 09:14 11:08 Sodium Potassium Chloride Carbon Dioxide Anion Gap BUN Creatinine Estimated GFR POC Glucose 169 H 161 H 185 H Random Glucose Hemoglobin A1c Lactic Acid Calcium Magnesium Total Bilirubin AST ALT Alkaline Phosphatase Total Creatine Kinase CK-MB (CK-2) CK-MB (CK-2) % Troponin I B-Natriuretic Peptide Total Protein Albumin 02/03/18 02/03/18 02/03/18 12:06 12:20 13:09 Sodium Potassium Chloride Carbon Dioxide Anion Gap BUN Creatinine Estimated GFR POC Glucose 174 H 119 H 173 H Random Glucose Hemoglobin A1c Lactic Acid Calcium Magnesium Total Bilirubin AST ALT Alkaline Phosphatase Total Creatine Kinase CK-MB (CK-2) CK-MB (CK-2) % Troponin I B-Natriuretic Peptide Total Protein Albumin 02/03/18 02/03/18 02/03/18 14:27 15:14 15:36 Sodium Potassium Chloride Carbon Dioxide Anion Gap BUN Creatinine Estimated GFR POC Glucose 166 H 174 H 158 H Random Glucose Hemoglobin A1c Lactic Acid Calcium Magnesium Total Bilirubin AST ALT Alkaline Phosphatase Total Creatine Kinase CK-MB (CK-2) CK-MB (CK-2) % Troponin I B-Natriuretic Peptide Total Protein Albumin 02/03/18 02/03/18 02/03/18 18:37 18:56 19:32 Sodium Potassium Chloride Carbon Dioxide Anion Gap BUN Creatinine Estimated GFR POC Glucose 143 H 142 H 138 H Random Glucose Hemoglobin A1c Lactic Acid Calcium Magnesium Total Bilirubin AST ALT Alkaline Phosphatase Total Creatine Kinase CK-MB (CK-2) CK-MB (CK-2) % Troponin I B-Natriuretic Peptide Total Protein Albumin 02/03/18 02/03/18 02/03/18 20:45 21:20 22:05 Sodium Potassium Chloride Carbon Dioxide Anion Gap BUN Creatinine Estimated GFR POC Glucose 149 H 173 H Random Glucose Hemoglobin A1c Lactic Acid 2.3 H Calcium Magnesium Total Bilirubin AST ALT Alkaline Phosphatase Total Creatine Kinase CK-MB (CK-2) CK-MB (CK-2) % Troponin I B-Natriuretic Peptide Total Protein Albumin 02/03/18 02/04/18 02/04/18 23:08 00:18 01:08 Sodium Potassium Chloride Carbon Dioxide Anion Gap BUN Creatinine Estimated GFR POC Glucose 159 H 161 H 139 H Random Glucose Hemoglobin A1c Lactic Acid Calcium Magnesium Total Bilirubin AST ALT Alkaline Phosphatase Total Creatine Kinase CK-MB (CK-2) CK-MB (CK-2) % Troponin I B-Natriuretic Peptide Total Protein Albumin 02/04/18 02/04/18 02/04/18 02:28 03:28 04:38 Sodium Potassium Chloride Carbon Dioxide Anion Gap BUN Creatinine Estimated GFR POC Glucose 154 H 165 H 153 H Random Glucose Hemoglobin A1c Lactic Acid Calcium Magnesium Total Bilirubin AST ALT Alkaline Phosphatase Total Creatine Kinase CK-MB (CK-2) CK-MB (CK-2) % Troponin I B-Natriuretic Peptide Total Protein Albumin 02/04/18 02/04/18 02/04/18 04:49 05:32 06:13 Sodium 141 Potassium 4.3 Chloride 111 H Carbon Dioxide 17.9 L Anion Gap 12 BUN 38 H Creatinine 1.30 H Estimated GFR 39 L POC Glucose 154 H 175 H Random Glucose 149 H Hemoglobin A1c Lactic Acid Calcium 8.0 L Magnesium Total Bilirubin AST ALT Alkaline Phosphatase Total Creatine Kinase CK-MB (CK-2) CK-MB (CK-2) % Troponin I B-Natriuretic Peptide Total Protein Albumin 02/04/18 02/04/18 02/04/18 07:35 08:27 09:41 Sodium Potassium Chloride Carbon Dioxide Anion Gap BUN Creatinine Estimated GFR POC Glucose 157 H 165 H 160 H Random Glucose Hemoglobin A1c Lactic Acid Calcium Magnesium Total Bilirubin AST ALT Alkaline Phosphatase Total Creatine Kinase CK-MB (CK-2) CK-MB (CK-2) % Troponin I B-Natriuretic Peptide Total Protein Albumin 02/04/18 02/04/18 02/04/18 11:45 15:37 15:37 Sodium 144 Potassium 3.9 Chloride 111 H Carbon Dioxide 20.3 L Anion Gap 13 BUN 38 H Creatinine 1.21 H Estimated GFR 42 L POC Glucose 167 H Random Glucose 191 H Hemoglobin A1c Lactic Acid Calcium 8.4 L Magnesium 2.1 Total Bilirubin 0.5 AST 37 ALT 20 Alkaline Phosphatase 78 Total Creatine Kinase CK-MB (CK-2) CK-MB (CK-2) % Troponin I B-Natriuretic Peptide Total Protein 7.1 Albumin 2.4 L Imaging: ITS Impressions Abdomen/Bladder Ultrasound 02/02/18 00:00 CONCLUSION: 1. Increased renal echogenicity typical of chronic parenchymal changes. 2. No evidence of acute obstructive uropathy. 3. Small bilateral benign-appearing cysts. Abdomen/Pelvis CT 02/02/18 00:00 CONCLUSION: 1. No acute abnormalities are seen in the abdomen or pelvis. 2. Mildly atrophic left kidney with vascular calcifications. 3. Aortoiliac atherosclerosis. No aneurysm. 4. Cholelithiasis. 5. Bilateral small pleural effusions and mild to moderate basilar atelectasis. 6. Coronary artery calcification. 7. Nonspecific mass of the visualized left breast. Last mammogram in our system was 2012. Up-to-date bilateral mammography with a diagnostic left breast mammogram recommended. Chest X-Ray 02/04/18 10:43 CONCLUSION: Minimal left basilar density and probable small pleural effusion. Physical Exam: GENERAL: NAD sedated, int'd SKIN: Warm and dry. EYES: Pupils equal and round. No scleral icterus. No injection or drainage. ENT: No nasal bleeding or discharge. Mucous membranes pink and moist. CARDIOVASCULAR: irregular rate and rhythm. RESPIRATORY: No accessory muscle use. Clear to auscultation. Breath sounds equal bilaterally. GASTROINTESTINAL: Abdomen soft, non-tender, mildly distended. Hepatic and splenic margins not palpable. MUSCULOSKELETAL: Extremities without clubbing, cyanosis, or edema. No obvious deformities. : dunne in place with clear urine NEUROLOGICAL: sedated, responsive (grimacing to touch) PSYCHIATRIC: unbale to assess Assessment and Plan - Plan NSTEMI sp stenting of LAD ? Sespsis Fever UTI , ESBL + organism H/o rectal cancer 3 yrs ago no intraabd pathology on the CT PNA vs pulmonanry edema cl P critical , unstab;e pt dw pt's GD: allergic to cipro, sulfa, PCN per records, no details Took keflex uneventfully recently (< 5 yrs) dc azactam, flagyl, vancomycin complete 5 days of azithro Ertapenem 1 gm daily fu blood clx chk c.diff jose RN jose Medrano
[2018-02-04] MEDS ORDERED: Digoxin Inj 500 MCG/2 ML Ampul IV.PUSH ONE (18:00)
--- NOTE | 2018-02-04 23:49 | P.PNCA ---
Subjective Interval history: No events overnight Stable, awake on the vent Diuresed well Medications and Allergies Active Medications: Active Medications Acetaminophen (Tylenol) 500 mg PO Q4H PRN PRN Reason: FEVER > 100.4 F Last Admin: 02/03/18 22:56 Dose: 500 mg Al Hydroxide/Mg Hydroxide (Milk Of Magnpiper Liq) 30 ml PO Q12H PRN PRN Reason: Mild Constipation Alprazolam (Xanax) 0.5 mg PO Q8H PRN PRN Reason: ANXIETY Last Admin: 02/02/18 05:26 Dose: 0.5 mg Aspirin (Ecotrin) 81 mg PO DAILY [facility] Last Admin: 02/04/18 09:10 Dose: 81 mg Atorvastatin Calcium (Lipitor) 40 mg PO HS [facility] Last Admin: 02/04/18 21:24 Dose: 40 mg Bisacodyl (Dulcolax Supp) 10 mg RECTAL DAILY PRN PRN Reason: SEVERE CONSITIPATION Chlorhexidine Gluconate (Peridex 0.12% Oral Kit) 15 ml OROPHARYNG BID@0800, 2000 [facility] Last Admin: 02/04/18 21:24 Dose: 15 ml Clopidogrel Bisulfate (Plavix) 75 mg PO DAILY [facility] Last Admin: 02/04/18 09:10 Dose: 75 mg Dextrose (D50w Vial) 50 ml IV.PUSH UNSCH PRN PRN Reason: PER HYPOGLYCEMIA PROTOCOL Famotidine (Pepcid Pf Inj) 10 mg IV.PUSH Q12HR [facility] Last Admin: 02/04/18 21:25 Dose: 10 mg Glucagon (Glucagon Inj) 1 mg OTHER PRN PRN PRN Reason: for Hypoglycemia Protocol Heparin Sodium (Porcine) (Heparin Inj) 5,000 units SQ Q8HR [facility] Last Admin: 02/04/18 21:25 Dose: 5,000 units Nitroglycerin/Dextrose (Nitroglycerin Drip Premix) 50 mg in 250 mls @ 1.5 mls/ hr IV.CONT TITRATE PRN; Protocol PRN Reason: Per Protocol Last Titration: 02/01/18 18:42 Dose: 10 mcg/min, 3 mls/hr Propofol (Diprivan 1000 Mg/100 Ml Inj) 1,000 mg in 100 mls @ 2.55 mls/hr IV.CONT TITRATE PRN; Protocol PRN Reason: Per Protocol Last Admin: 02/04/18 17:11 Dose: 20 mcg/kg/min, 10.2 mls/hr Azithromycin 500 mg/ Sodium (Chloride) 250 mls @ 250 mls/hr IV.SIG Q24H [facility] Last Admin: 02/04/18 13:07 Dose: Not Given Phenylephrine HCl 40 mg/ (Sodium Chloride) 500 mls @ 30 mls/hr IV.CONT TITRATE PRN; Protocol PRN Reason: See Protocol Last Titration: 02/03/18 17:52 Dose: 0 mcg/min, 0 mls/hr Milrinone Lactate 20 mg/ (Sodium Chloride) 100 mls @ 0 mls/hr IV.CONT .Q0M [facility]YANA ; Protocol Last Admin: 02/04/18 12:33 Dose: 0.125 mcg/kg/min, 3.34 mls/hr Ertapenem 1,000 mg/ Sodium (Chloride) 100 mls @ 200 mls/hr IV.SIG Q24H [facility] Last Admin: 02/04/18 12:48 Dose: 200 mls/hr Insulin Aspart (Novolog Insulin Correctional Sugar Inj) 0 unit SQ Q4HR [facility]; Protocol Last Admin: 02/04/18 21:24 Dose: 4 unit Lactulose (Lactulose Liq) 30 ml PO DAILY PRN PRN Reason: SEVERE CONSITIPATION Metoprolol Tartrate (Lopressor) 25 mg PO TID [facility] Last Admin: 02/04/18 17:10 Dose: 25 mg Miscellaneous (Pill Splitter) 1 each OTHER UNSCH PRN PRN Reason: SEE LABEL COMMENTS Miscellaneous Information ([facility] Ordered Lab Info) 0 each OTHER ONCE ONE Stop: 02/05/18 14:46 Miscellaneous Medication () 1 each OROPHARYNG 0000,0400,1200,1600 [facility] Last Admin: 02/04/18 17:07 Dose: 1 each Morphine Sulfate (Morphine Inj) 2 mg IV.PUSH Q20M PRN PRN Reason: PAIN 1-10 Last Admin: 02/01/18 02:53 Dose: 2 mg Nitroglycerin (Nitro-Bid 2% Oint) 0.5 inch TOPICAL Q6HR [facility] Last Admin: 02/04/18 17:10 Dose: 0.5 inch Sennosides (Senokot) 17.2 mg PO Q12H PRN PRN Reason: Moderate Constipation Sodium Chloride (Ns Flush) 2 ml IV.FLUSH BID [facility] Last Admin: 02/04/18 21:24 Dose: 2 ml Sodium Chloride (Ns Flush) 2 ml IV.FLUSH UNSCH PRN PRN Reason: FLUSH AFTER USING IV ACCESS Terbutaline Sulfate (Brethine Inj) 1 mg SQ UNSCH PRN PRN Reason: For Extravasation Tramadol HCl (Ultram) 50 mg PO Q6H PRN PRN Reason: Pain 1-10 Last Admin: 02/02/18 05:25 Dose: 50 mg Whey (Beneprotein Powder) 1 packet G-TUBE TID [facility] Last Admin: 02/04/18 17:11 Dose: 1 packet Allergies Allergy/AdvReac Type Severity Reaction Status Date / Time penicillin G Allergy Severe UNKNOWN Verified 01/31/18 02:06 Sulfa (Sulfonamide Allergy Severe UNKNOWN Verified 01/31/18 02:06 Antibiotics) ciprofloxacin AdvReac unknown Verified 02/03/18 11:14 Home Medications Medication Instructions Recorded Confirmed Type alprazolam 0.5 mg PO Q8HR PRN 01/31/18 01/31/18 History tramadol 50 mg PO Q6H PRN 01/31/18 01/31/18 History Physical Exam Vital signs: Vital Signs 02/04/18 00:00 02/04/18 00:13 02/04/18 01:00 Temperature 99.7 F H 99.5 F 99.3 F Pulse Rate 93 H 96 H 96 H Respiratory Rate 16 16 16 Blood Pressure 112/62 Pulse Oximetry 100 100 100 02/04/18 01:13 02/04/18 01:30 02/04/18 02:00 Temperature 99.1 F 99.1 F 99.1 F Pulse Rate 95 H 95 H 94 H Respiratory Rate 16 16 16 Blood Pressure 111/65 Pulse Oximetry 100 100 100 02/04/18 02:13 02/04/18 02:30 02/04/18 03:00 Temperature 99.1 F 99.1 F 99.0 F Pulse Rate 94 H 94 H 87 Respiratory Rate 16 16 16 Blood Pressure 105/63 Pulse Oximetry 100 100 100 02/04/18 03:13 02/04/18 03:30 02/04/18 04:00 Temperature 99.0 F 99.0 F 98.8 F Pulse Rate 90 91 H 85 Respiratory Rate 16 16 17 Blood Pressure 107/82 Pulse Oximetry 100 100 100 02/04/18 04:13 02/04/18 04:16 02/04/18 04:18 Temperature 98.8 F 98.8 F Pulse Rate 84 85 Respiratory Rate 23 18 16 Blood Pressure 88/53 L 111/53 L Pulse Oximetry 100 100 100 02/04/18 04:30 02/04/18 05:00 02/04/18 05:13 Temperature 98.6 F 98.6 F 98.6 F Pulse Rate 81 86 87 Respiratory Rate 20 22 18 Blood Pressure 126/83 Pulse Oximetry 100 100 100 02/04/18 05:30 02/04/18 06:00 02/04/18 06:30 Temperature 98.6 F 98.1 F 98.4 F Pulse Rate 87 87 90 Respiratory Rate 18 17 16 Blood Pressure Pulse Oximetry 100 97 100 02/04/18 07:00 02/04/18 07:21 02/04/18 07:30 Temperature 98.2 F 97.3 F L 97.7 F Pulse Rate 88 88 85 Respiratory Rate 16 17 16 Blood Pressure 106/61 109/55 L Pulse Oximetry 100 96 100 02/04/18 08:00 02/04/18 08:30 02/04/18 09:00 Temperature 97.7 F 97.9 F 97.7 F Pulse Rate 85 87 87 Respiratory Rate 16 16 16 Blood Pressure 100/58 L 113/55 L 104/86 Pulse Oximetry 100 100 100 02/04/18 09:23 02/04/18 09:30 02/04/18 10:00 Temperature 97.9 F 97.9 F Pulse Rate 87 75 Respiratory Rate 16 16 16 Blood Pressure 104/58 L 101/51 L Pulse Oximetry 99 100 100 02/04/18 10:23 02/04/18 10:30 02/04/18 11:00 Temperature 98.1 F 98.1 F Pulse Rate 79 84 Respiratory Rate 17 17 25 H Blood Pressure 104/69 113/85 Pulse Oximetry 98 100 02/04/18 11:30 02/04/18 12:00 02/04/18 12:30 Temperature 98.4 F 98.6 F 98.4 F Pulse Rate 86 90 95 H Respiratory Rate 16 20 18 Blood Pressure 127/60 106/57 L 116/53 L Pulse Oximetry 100 100 100 02/04/18 12:45 02/04/18 13:00 02/04/18 13:15 Temperature 98.4 F 98.4 F 98.4 F Pulse Rate 96 H 103 H 106 H Respiratory Rate 20 21 16 Blood Pressure 111/55 L 111/55 L 110/55 L Pulse Oximetry 100 100 100 02/04/18 13:30 02/04/18 13:45 02/04/18 14:00 Temperature 98.4 F 98.4 F 98.4 F Pulse Rate 114 H 112 H 118 H Respiratory Rate 24 17 21 Blood Pressure 116/57 L 110/76 106/68 Pulse Oximetry 100 100 100 02/04/18 14:15 02/04/18 14:30 02/04/18 14:45 Temperature 98.6 F 98.8 F 99.0 F Pulse Rate 125 H 118 H 118 H Respiratory Rate 25 H 23 27 H Blood Pressure 114/80 108/55 L 99/50 L Pulse Oximetry 100 100 100 02/04/18 15:00 02/04/18 15:15 02/04/18 15:30 Temperature 99.0 F 99.0 F 99.1 F Pulse Rate 110 H 107 H 111 H Respiratory Rate 23 20 21 Blood Pressure 108/55 L 105/64 110/57 L Pulse Oximetry 100 100 100 02/04/18 15:45 02/04/18 16:00 02/04/18 16:15 Temperature 99.1 F 99.1 F 99.3 F Pulse Rate 110 H 109 H 115 H Respiratory Rate 23 21 22 Blood Pressure 114/59 L 118/60 113/55 L Pulse Oximetry 100 100 100 02/04/18 16:30 02/04/18 16:45 02/04/18 17:00 Temperature 99.5 F 99.5 F 99.7 F H Pulse Rate 115 H 111 H 120 H Respiratory Rate 21 24 26 H Blood Pressure 105/51 L 126/70 116/56 L Pulse Oximetry 100 100 100 02/04/18 17:15 02/04/18 17:30 02/04/18 17:45 Temperature 99.7 F H 99.9 F H 99.9 F H Pulse Rate 120 H 138 H 137 H Respiratory Rate 26 H 32 H 29 H Blood Pressure 122/69 142/66 H 130/70 Pulse Oximetry 100 99 99 02/04/18 18:00 02/04/18 18:14 02/04/18 18:15 Temperature 99.9 F H 99.9 F H Pulse Rate 123 H 110 H Respiratory Rate 26 H 21 21 Blood Pressure 155/76 H 104/60 Pulse Oximetry 99 99 99 02/04/18 21:20 Temperature Pulse Rate Respiratory Rate 21 Blood Pressure Pulse Oximetry 99 Intake & Output 02/04/18 02/04/18 02/05/18 06:59 18:59 06:59 Intake Total 1100 / 1100 200 / 200 Output Total 1300 / 1300 2600 / 2600 Balance -200 / -200 -2400 / -2400 Weight 89.3 kg Intake: IV 1100 / 1100 200 / 200 Diprivan 1000 mg/100 ml Inj 1, 200 / 200 100 / 100 000 mg In 100 ml @ 5 MCG/KG/MIN 2.55 mls/hr IV.CONT TITRATE PRN Rx#:[id number] NS Inj 500 ML @ 30 mls/hr IV. 500 / 500 CONT .[id number] TATYANA Rx#:[id number] Azactam Inj 2,000 GM In NS Inj 300 / 300 100 ML @ 200 mls/hr IV.SIG Q6H [facility] Rx#:[id number] Flagyl 500 MG Inj 100 ML @ 100 100 / 100 100 / 100 mls/hr IV.SIG Q8H [facility]NA Rx#: [id number] Output: Urine Amount (Catheter) 1300 / 1300 2600 / 2600 Indwelling Temp Sensing 1300 / 1300 2600 / 2600 Catheter Other: Date of Last Bowel Movement 01/31/18 01/31/18 Narrative: GENERAL: Intubated and sedation SKIN: Cool and dry HEAD: Atraumatic. Normocephalic. EYES: Pupils equal and round. No scleral icterus. No injection or drainage. ENT: No nasal bleeding or discharge. Mucous membranes pink and moist. NECK: Trachea midline. No JVD. ET tube in place CARDIOVASCULAR: Regular rate and rhythm. RESPIRATORY: No accessory muscle use. Crackles/rales noted bilaterally. GASTROINTESTINAL: Abdomen soft, non-tender, nondistended. Hepatic and splenic margins not palpable. MUSCULOSKELETAL: Extremities without clubbing, cyanosis, or edema. No obvious deformities. NEUROLOGICAL: Sedated on the vent - Urinary Catheter Management Indwelling Temp Sensing Catheter Cath placed during this visit: no Results 02/04/18 15:37 02/04/18 15:37 Cardiac Enzymes 11/07/1802/03/18 02/03/18 Range/Units 02:37 02:50 08:15 AST (15-37) U/L CK-MB (CK-2) 11.7 H 8.6 H (0.5-3.6) ng/mL Troponin I 16.90 H* D 10.20 H* D (0.02-0.05) ng/mL B-Natriuretic Peptide 858 H (0-100) pg/mL 02/04/18 Range/Units 15:37 AST 37 (15-37) U/L CK-MB (CK-2) (0.5-3.6) ng/mL Troponin I (0.02-0.05) ng/mL B-Natriuretic Peptide (0-100) pg/mL Coagulation 02/03/18 02/03/18 Range/Units 02:37 02:37 APTT 35.9 H (23.4-31.7) sec B-Natriuretic Peptide 858 H (0-100) pg/mL CBC 02/03/18 02/04/18 02/04/18 Range/Units 02:50 04:49 15:37 WBC 15.2 H 9.2 9.5 (4.0-11.0) th/mm3 RBC 4.40 3.86 L 3.56 L (4.00-5.30) mil/mm3 Hgb 12.8 11.4 L 10.9 L (11.6-15.3) gm/dL Hct 38.7 33.9 L 31.7 L (35.0-46.0) % Plt Count 209 D 176 198 (150-450) th/mm3 Neut # (Auto) 11.3 H 7.0 8.0 H (1.8-7.7) th/mm3 Lymph # (Auto) 1.9 1.1 0.6 L (1.0-4.8) th/mm3 [place] # (Auto) 1.4 H 0.9 0.8 (0.0-0.9) th/mm3 Eos # (Auto) 0.2 0.1 0.1 (0.0-0.4) th/mm3 Baso # (Auto) 0.2 0.0 0.0 (0.0-0.2) th/mm3 Comprehensive Metabolic Panel 02/03/18 02/04/18 02/04/18 Range/Units 02:50 04:49 15:37 Sodium 138 141 144 (136-145) meq/L Potassium 4.2 4.3 3.9 (3.5-5.1) meq/L Chloride 106 111 H 111 H (98-107) meq/L Carbon Dioxide 22.3 17.9 L 20.3 L (21.0-32.0) meq/L BUN 39 H 38 H 38 H (7-18) mg/dL Creatinine 1.77 H 1.30 H 1.21 H (0.50-1.00) mg/dL Calcium 8.6 8.0 L 8.4 L (8.5-10.1) mg/dL AST 37 (15-37) U/L ALT 20 (10-53) U/L Alkaline Phosphatase 78 (45-117) U/L Total Protein 7.1 (6.4-8.2) g/dL Albumin 2.4 L (3.4-5.0) g/dL Intake and Output 02/04/18 02/04/18 02/05/18 14:59 22:59 06:59 Intake Total 100 / 100 100 / 100 Output Total 2600 / 2600 Balance 100 / 100 -2500 / -2500 Intake: IV 100 / 100 100 / 100 Diprivan 1000 mg/100 ml Inj 1, 100 / 100 000 mg In 100 ml @ 5 MCG/KG/MIN 2.55 mls/hr IV.CONT TITRATE PRN Rx#:[id number] Flagyl 500 MG Inj 100 ML @ 100 100 / 100 mls/hr IV.SIG Q8H [facility]NA Rx#: [id number] Output: Urine Amount (Catheter) 2600 / 2600 Indwelling Temp Sensing 2600 / 2600 Catheter Other: Date of Last Bowel Movement 01/31/18 01/31/18 - Imaging and Cardiology Imaging: Impressions Chest X-Ray 02/03/18 00:00 CONCLUSION: Endotracheal tube tip is a bit deep Improving aeration Chest X-Ray 02/04/18 10:43 CONCLUSION: Minimal left basilar density and probable small pleural effusion. Assessment and Plan - Assessment (1) Frail elderly Code(s): R54 - Age-related physical debility Status: Acute (2) Acute myocardial infarction Code(s): I21.9 - Acute myocardial infarction, unspecified Status: Acute (3) Febrile illness Code(s): R50.9 - Fever, unspecified Status: Acute (4) Acute kidney injury Code(s): N17.9 - Acute kidney failure, unspecified Status: Acute (5) Atrial fibrillation Code(s): I48.91 - Unspecified atrial fibrillation Status: Acute (6) Cardiogenic shock Code(s): R57.0 - Cardiogenic shock Status: Acute (7) Acute hypoxemic respiratory failure Code(s): J96.01 - Acute respiratory failure with hypoxia Status: Acute (8) Pulmonary edema cardiac cause Code(s): I50.1 - Left ventricular failure, unspecified Status: Acute (9) Acute myocardial infarction Code(s): I21.9 - Acute myocardial infarction, unspecified Status: Acute - Plan 1) Acute myocardial infarction anteriorly 2) Cardiogenic shock 3) NSVT 4) LOLIS Plan: 1) Diuresed well, -2.4L 2) Con't with diuresis 3) Possible extubation in the near future, continue to follow 4) Discussed with Dr. Medrano, agree with Milrinone to try to help with EF of 20% 5) ASA/Plavix for PCI 6) Eventual Cardiomyopathy meds 7) Possible repeat echo later in the week
[2018-02-05] MEDS: Insulin NovoLOG Aspart Correctional Sugar Inj SQ SCH ×6 (00:46→20:17)
[2018-02-05] MEDS: Oral Hygiene Kit OROPHARYNG SCH ×4 (00:46→16:35)
[2018-02-05] MEDS: Propofol 1000 mg/100 ml Inj 1,000 MG/100 ML BOTTLE IV.CONT PRN (03:29)
[2018-02-05 05:15] LABS: Baso % (Auto) 0.3 % (0.0-2.0); Eos # (Auto) 0.1 th/mm3 (0.0-0.4); Eos % (Auto) 1.6 % (0.0-4.0); Hematocrit 35.8 % (35.0-46.0); Hemoglobin 11.6 gm/dL (11.6-15.3); Lymph # (Auto) 0.9 th/mm3 (1.0-4.8); Lymph % (Auto) 12.6 % (9.0-44.0); Mean Corpuscular HGB Conc 32.5 % (32.0-36.0); Mean Corpuscular Volume 89.2 fL (80.0-100.0); Mono # (Auto) 0.9 th/mm3 (0.0-0.9); Mono % (Auto) 11.5 % (0.0-8.0); Neut # (Auto) 5.5 th/mm3 (1.8-7.7); Platelet Count 177 th/mm3 (150-450); Red Blood Count 4.01 mil/mm3 (4.00-5.30); Red Cell Distribution Width 16.3 % (11.6-17.2); White Blood Count 7.5 th/mm3 (4.0-11.0)
[2018-02-05] MEDS: Heparin - SQ 10,000 UNITS/ML Vial SQ SCH ×3 (06:16→23:22)
--- NOTE | 2018-02-05 08:25 | P.PNCC ---
Subjective Subjective Remarks/Hospital Course: I have been asked to see emergently this 79-year-old female with a history of diabetes, anxiety, depression, history of rectal cancer in remission, CAD status post PCI, recent admission on 01/28 for non-ST elevation ND discharged on 01/29. Presented 01/31 with acute onset of dull pressure-like nonradiating chest pain resolved with aspirin and sublingual nitroglycerin. On arrival to the ICU she is clearly markedly labored respiratory effort and hypoxemia despite a nonrebreathing mask. She required intubation immediately upon arrival to get oxygen saturation greater than 90% and mechanical and ventilation with elevated end expiratory pressure was required to maintain adequate oxygenation. She appears to be undergoing a stuttering infarct and remains on a heparin drip. Fever on unknown origin, worsening lung infiltrates however. Start abx, adjust per ID service. 02/03: Improved oxygenation on mechanical ventilation with elevated end expiratory pressure. Labs consistent with left heart dysfunction and acute myocardial infarction. Spontaneous urine output has improved modestly. 02/04: Critically ill but overall showing some clinical improvement. Underwent left heart catheterization yesterday, PCI with LUZMARIA to LAD. Received Lasix 20 mg yesterday with more than 2 L urine output. On sedation hold weakly follows some commands 02/05: Tolerated several hours of CPAP yesterday. Currently lightly sedated with propofol. Wakes up easily follows commands. Patient remains in atrial fibrillation but currently rate controlled heart rate 85-90 bpm. Received single dose of digoxin yesterday for urine output 3.7 L in last 24 hours with diuresis. Start Aldactone 25 twice daily Objective Vital Signs / I&O: Vital Signs 02/04/18 08:30 02/04/18 09:00 02/04/18 09:23 Temperature 97.9 F 97.7 F Pulse Rate 87 87 Respiratory Rate 16 16 16 Blood Pressure 113/55 L 104/86 Pulse Oximetry 100 100 99 02/04/18 09:30 02/04/18 10:00 02/04/18 10:23 Temperature 97.9 F 97.9 F Pulse Rate 87 75 Respiratory Rate 16 16 17 Blood Pressure 104/58 L 101/51 L Pulse Oximetry 100 100 98 02/04/18 10:30 02/04/18 11:00 02/04/18 11:30 Temperature 98.1 F 98.1 F 98.4 F Pulse Rate 79 84 86 Respiratory Rate 17 25 H 16 Blood Pressure 104/69 113/85 127/60 Pulse Oximetry 100 100 02/04/18 12:00 02/04/18 12:30 02/04/18 12:45 Temperature 98.6 F 98.4 F 98.4 F Pulse Rate 90 95 H 96 H Respiratory Rate 20 18 20 Blood Pressure 106/57 L 116/53 L 111/55 L Pulse Oximetry 100 100 100 02/04/18 13:00 02/04/18 13:15 02/04/18 13:30 Temperature 98.4 F 98.4 F 98.4 F Pulse Rate 103 H 106 H 114 H Respiratory Rate 21 16 24 Blood Pressure 111/55 L 110/55 L 116/57 L Pulse Oximetry 100 100 100 02/04/18 13:45 02/04/18 14:00 02/04/18 14:15 Temperature 98.4 F 98.4 F 98.6 F Pulse Rate 112 H 118 H 125 H Respiratory Rate 17 21 25 H Blood Pressure 110/76 106/68 114/80 Pulse Oximetry 100 100 100 02/04/18 14:30 02/04/18 14:45 02/04/18 15:00 Temperature 98.8 F 99.0 F 99.0 F Pulse Rate 118 H 118 H 110 H Respiratory Rate 23 27 H 23 Blood Pressure 108/55 L 99/50 L 108/55 L Pulse Oximetry 100 100 100 02/04/18 15:15 02/04/18 15:30 02/04/18 15:45 Temperature 99.0 F 99.1 F 99.1 F Pulse Rate 107 H 111 H 110 H Respiratory Rate 20 21 23 Blood Pressure 105/64 110/57 L 114/59 L Pulse Oximetry 100 100 100 02/04/18 16:00 02/04/18 16:15 02/04/18 16:30 Temperature 99.1 F 99.3 F 99.5 F Pulse Rate 109 H 115 H 115 H Respiratory Rate 21 22 21 Blood Pressure 118/60 113/55 L 105/51 L Pulse Oximetry 100 100 100 02/04/18 16:45 02/04/18 17:00 02/04/18 17:15 Temperature 99.5 F 99.7 F H 99.7 F H Pulse Rate 111 H 120 H 120 H Respiratory Rate 24 26 H 26 H Blood Pressure 126/70 116/56 L 122/69 Pulse Oximetry 100 100 100 02/04/18 17:30 02/04/18 17:45 02/04/18 18:00 Temperature 99.9 F H 99.9 F H 99.9 F H Pulse Rate 138 H 137 H 123 H Respiratory Rate 32 H 29 H 26 H Blood Pressure 142/66 H 130/70 155/76 H Pulse Oximetry 99 99 99 02/04/18 18:14 02/04/18 18:15 02/04/18 18:44 Temperature 99.9 F H Pulse Rate 110 H Respiratory Rate 21 21 Blood Pressure 104/60 86/59 L Pulse Oximetry 99 99 02/04/18 18:46 02/04/18 19:00 02/04/18 19:01 Temperature 100.0 F H 99.0 F 99.3 F Pulse Rate 106 H 103 H 103 H Respiratory Rate 16 16 16 Blood Pressure 97/50 L 85/54 L Pulse Oximetry 99 100 100 02/04/18 19:16 02/04/18 19:31 02/04/18 19:46 Temperature 98.8 F 100.4 F H 100.4 F H Pulse Rate 106 H 106 H 111 H Respiratory Rate 17 16 17 Blood Pressure 96/66 L 104/69 119/65 Pulse Oximetry 100 100 100 02/04/18 20:00 02/04/18 20:01 02/04/18 20:16 Temperature 100.4 F H 100.6 F H 100.4 F H Pulse Rate 123 H 125 H 112 H Respiratory Rate 29 H 27 H 16 Blood Pressure 134/62 119/60 Pulse Oximetry 99 100 100 02/04/18 20:31 02/04/18 20:33 02/04/18 20:46 Temperature 100.4 F H 100.4 F H Pulse Rate 112 H 109 H 110 H Respiratory Rate 17 17 16 Blood Pressure 82/48 L 114/59 L 99/63 L Pulse Oximetry 100 100 100 02/04/18 21:00 02/04/18 21:01 02/04/18 21:16 Temperature 99.9 F H 99.9 F H 100.2 F H Pulse Rate 108 H 109 H 104 H Respiratory Rate 16 16 16 Blood Pressure 101/52 L 100/52 L Pulse Oximetry 100 100 100 02/04/18 21:20 02/04/18 21:31 02/04/18 21:46 Temperature 100.4 F H 100.4 F H Pulse Rate 102 H 103 H Respiratory Rate 21 17 16 Blood Pressure 111/65 109/71 Pulse Oximetry 99 100 100 02/04/18 22:00 02/04/18 22:01 02/04/18 22:16 Temperature 100.4 F H 100.4 F H 100.2 F H Pulse Rate 103 H 102 H 98 H Respiratory Rate 13 13 13 Blood Pressure 106/81 115/54 L Pulse Oximetry 100 100 100 02/04/18 22:31 02/04/18 22:46 02/04/18 22:54 Temperature 100.4 F H 100.4 F H 100.4 F H Pulse Rate 99 H 97 H 95 H Respiratory Rate 13 16 16 Blood Pressure 120/54 L 105/48 L 96/62 L Pulse Oximetry 100 100 100 02/04/18 23:00 02/04/18 23:01 02/04/18 23:16 Temperature 100.6 F H 100.6 F H 100.8 F H Pulse Rate 107 H 101 H 103 H Respiratory Rate 16 16 16 Blood Pressure 122/60 102/58 L Pulse Oximetry 100 100 100 02/04/18 23:31 02/04/18 23:46 02/05/18 00:00 Temperature 100.8 F H 100.8 F H 100.8 F H Pulse Rate 103 H 99 H 101 H Respiratory Rate 16 16 16 Blood Pressure 114/59 L 102/51 L Pulse Oximetry 100 100 100 02/05/18 00:01 02/05/18 00:16 02/05/18 00:24 Temperature 100.8 F H 100.8 F H Pulse Rate 103 H 102 H Respiratory Rate 16 16 21 Blood Pressure 119/62 130/59 L Pulse Oximetry 100 100 100 02/05/18 00:31 02/05/18 00:46 02/05/18 01:00 Temperature 100.8 F H 100.6 F H 100.6 F H Pulse Rate 106 H 123 H 101 H Respiratory Rate 17 27 H 16 Blood Pressure 145/82 H 132/63 Pulse Oximetry 100 100 100 02/05/18 01:01 02/05/18 01:16 02/05/18 01:31 Temperature 100.6 F H 100.4 F H 100.4 F H Pulse Rate 103 H 97 H 100 H Respiratory Rate 16 16 16 Blood Pressure 120/59 L 122/67 143/64 H Pulse Oximetry 100 100 100 02/05/18 01:46 02/05/18 02:00 02/05/18 02:01 Temperature 100.4 F H 100.4 F H 100.4 F H Pulse Rate 100 H 99 H 99 H Respiratory Rate 16 21 24 Blood Pressure 121/54 L 136/59 L Pulse Oximetry 100 100 100 02/05/18 02:16 02/05/18 02:31 02/05/18 02:46 Temperature 100.2 F H 100.2 F H 100.2 F H Pulse Rate 102 H 99 H 92 H Respiratory Rate 16 16 16 Blood Pressure 132/60 129/57 L 122/59 L Pulse Oximetry 100 100 100 02/05/18 03:00 02/05/18 03:01 02/05/18 03:16 Temperature 100.2 F H 100.2 F H 100.2 F H Pulse Rate 88 89 91 H Respiratory Rate 16 16 16 Blood Pressure 87/55 L 100/59 L Pulse Oximetry 100 100 100 02/05/18 03:31 02/05/18 03:46 02/05/18 04:00 Temperature 100.2 F H 100.0 F H 100.0 F H Pulse Rate 93 H 92 H 91 H Respiratory Rate 16 16 16 Blood Pressure 118/85 107/55 L Pulse Oximetry 100 100 100 02/05/18 04:01 02/05/18 04:16 02/05/18 04:31 Temperature 100.0 F H 99.9 F H 99.9 F H Pulse Rate 86 90 91 H Respiratory Rate 16 16 16 Blood Pressure 122/58 L 95/50 L 111/56 L Pulse Oximetry 100 100 100 02/05/18 04:46 02/05/18 05:00 02/05/18 05:01 Temperature 99.9 F H 99.9 F H 99.9 F H Pulse Rate 91 H 94 H 91 H Respiratory Rate 16 13 11 L Blood Pressure 132/62 115/56 L Pulse Oximetry 100 100 100 02/05/18 05:16 02/05/18 05:31 02/05/18 05:46 Temperature 99.9 F H 99.9 F H 99.7 F H Pulse Rate 87 90 85 Respiratory Rate 15 15 16 Blood Pressure 105/60 108/55 L 112/55 L Pulse Oximetry 100 100 100 11/06/18 06:00 02/05/18 06:01 02/05/18 06:18 Temperature 99.7 F H 99.7 F H 99.9 F H Pulse Rate 90 89 90 Respiratory Rate 44 H 21 16 Blood Pressure 123/67 144/71 H Pulse Oximetry 100 100 99 02/05/18 08:00 Temperature Pulse Rate Respiratory Rate 15 Blood Pressure Pulse Oximetry 100 Intake & Output 02/04/18 02/05/18 02/05/18 18:59 06:59 18:59 Intake Total 300 / 300 100 / 100 Output Total 2600 / 2600 1175 / 1175 Balance -2300 / -2300 -1075 / -1075 Weight 85.8 kg Intake: IV 300 / 300 100 / 100 Diprivan 1000 mg/100 ml Inj 1, 100 / 100 100 / 100 000 mg In 100 ml @ 5 MCG/KG/MIN 2.55 mls/hr IV.CONT TITRATE PRN Rx#:[id number] INVanz Inj 1,000 MG In NS Inj 100 / 100 100 ML @ 200 mls/hr IV.SIG Q24H TATYANA Rx#:[id number] Flagyl 500 MG Inj 100 ML @ 100 100 / 100 mls/hr IV.SIG Q8H TATYANA Rx#: [id number] Output: Urine Amount (Catheter) 2600 / 2600 1175 / 1175 Indwelling Temp Sensing 2600 / 2600 1175 / 1175 Catheter Other: Date of Last Bowel Movement 01/31/18 01/31/18 Result Diagrams: 02/05/18 04:13 02/05/18 04:12 Objective Remarks: Narrative: General: Elderly woman lightly sedated, on mechanical ventilation, wakes up easily follows commands HEENT: Oral tracheal intubation, oral gastric tube in place for decompression of the GI tract. Cardiovascular: Irregular irregular rhythm, rate 85 - neck veins are full Respiratory: Air entry equal bilaterally few minimal basilar crackles. No wheezes Abdomen: Soft, nontender, nondistended, few bowel sounds, no guarding Extremities: Trace edema lower extremities Neuro: Sedated for ventilator synchrony. Withdraws 4 limbs to stimulation. On holding sedation patient is awake follows commands x4 Assessment and Plan - Problem List (1) Acute hypoxemic respiratory failure Code(s): J96.01 - Acute respiratory failure with hypoxia Status: Acute (2) Pulmonary edema cardiac cause Code(s): I50.1 - Left ventricular failure, unspecified Status: Acute (3) Acute myocardial infarction Code(s): I21.9 - Acute myocardial infarction, unspecified Status: Acute (4) Acute kidney injury Code(s): N17.9 - Acute kidney failure, unspecified Status: Acute (5) Type 2 diabetes mellitus Code(s): E11.9 - Type 2 diabetes mellitus without complications Status: Chronic - Assessment and Plan Plan: Plan: Acute hypoxemic respiratory failure -Mechanical ventilation PRVC, tolerated SBT for several hours yesterday -SBT with weaning trial today probable extubation -Diuretics as tolerated, follow prerenal pattern -Propofol for sedation -DuoNeb every hours as needed Acute myocardial infarction -Continue antiplatelet therapy (ASA, Plavix) -Status post PCI with LAD stent (LUZMARIA) 02/03/[address] Peralta -Give additional 40 mg Lasix x1 given 02/04/2018 -Start Aldactone 25 twice daily -Discussed with Dr. Peralta Ischemic cardiomyopathy -Did not tolerate milrinone due to tachycardia -Continue beta-blockers if tolerated -EF 20%, repeat echo -Diuresis as above -Watch closely for arrhythmias Atrial fibrillation -Currently rate controlled -Received 1 dose of digoxin yesterday -Continue metoprolol 25 3 times daily -Keep potassium more than 4, keep magnesium more than 2 -Currently on DA PT and subcu heparin, if A. fib persists may need full anticoagulation -Discussed with Dr. Peralta Acute kidney injury -Avoid nephrotoxins -Attempt to diuresis without exacerbating renal injury -Start Aldactone 25 mg p.o. twice daily Diabetes mellitus, poorly controlled -Resumed Levemir twice daily, Resumed medium correction sliding scale insulin protocol Prophylaxis -Heparin sq -Pepcid Overall impression: This lady is critically ill with pulmonary edema of cardiac etiology, to improving currently. She has required intubation and mechanical ventilation with elevated airway pressures because of the severe oxygen diffusion impairment. Heart rate improved though remains in A. fib. Considering all aspects of her present physiological state her prognosis is poor and her risk of early is high. Cardiology service following Critical care time 35 minutes Code Status: Full
[2018-02-05] MEDS: Beneprotein Powder Packet G-TUBE SCH ×3 (09:00→18:15)
[2018-02-05] MEDS: Famotidine PF Inj 20 MG/2 ML Vial IV.PUSH SCH ×2 (09:00→20:17)
[2018-02-05] MEDS: Chlorhexidine 0.12% Oral Kit 15 ML UDC OROPHARYNG SCH ×2 (09:01→20:17)
--- NOTE | 2018-02-05 09:18 | XR ---
EXAM DATE: 02/05/2018 9:00 AM EST AGE/SEX: 87 years / Female INDICATIONS: Respiratory Disease. CLINICAL DATA: This is the patient's subsequent encounter. Patient reports that signs and symptoms h ave been present for 1 week and indicates a pain score of Nonresponsive. MEDICAL/SURGICAL HISTORY: . Cardiovascular disease. Hypertension. Carcinoma, rectal. Diabetes. . Appendectomy. Hysterectomy. COMPARISON: [facility] [place], CHEST 1V SINGLE AP, 02/04/2018. . FINDINGS: The lungs are clear without infiltrate, nodule, or mass. There is no appreciable pleural effusion fo r technique. Heart and mediastinum are unremarkable. NG tube is present with tip in the stomach. ET tube is present with tip overlapping approximately 2 above the magi. CONCLUSION: No acute cardiopulmonary disease. Electronically signed by: Lulu Barone MD 02/05/2018 9:17 AM EST
--- NOTE | 2018-02-05 09:40 | P.PNNP ---
Subjective Interval history: Patient was unable to speak, orally intubated. She is on the ventilator. Patient was on Propofol. Good urine output. Per the RN, patient may be extubated today. Renal function is stable today. <Jesse Avila - Last Filed: 02/05/18 10:00> Physical Exam Vital signs: Vital Signs 02/04/18 10:00 02/04/18 10:23 02/04/18 10:30 Temperature 97.9 F 98.1 F Pulse Rate 75 79 Respiratory Rate 16 17 17 Blood Pressure 101/51 L 104/69 Pulse Oximetry 100 98 02/04/18 11:00 02/04/18 11:30 02/04/18 12:00 Temperature 98.1 F 98.4 F 98.6 F Pulse Rate 84 86 90 Respiratory Rate 25 H 16 20 Blood Pressure 113/85 127/60 106/57 L Pulse Oximetry 100 100 100 02/04/18 12:30 02/04/18 12:45 02/04/18 13:00 Temperature 98.4 F 98.4 F 98.4 F Pulse Rate 95 H 96 H 103 H Respiratory Rate 18 20 21 Blood Pressure 116/53 L 111/55 L 111/55 L Pulse Oximetry 100 100 100 02/04/18 13:15 02/04/18 13:30 02/04/18 13:45 Temperature 98.4 F 98.4 F 98.4 F Pulse Rate 106 H 114 H 112 H Respiratory Rate 16 24 17 Blood Pressure 110/55 L 116/57 L 110/76 Pulse Oximetry 100 100 100 02/04/18 14:00 02/04/18 14:15 02/04/18 14:30 Temperature 98.4 F 98.6 F 98.8 F Pulse Rate 118 H 125 H 118 H Respiratory Rate 21 25 H 23 Blood Pressure 106/68 114/80 108/55 L Pulse Oximetry 100 100 100 02/04/18 14:45 02/04/18 15:00 02/04/18 15:15 Temperature 99.0 F 99.0 F 99.0 F Pulse Rate 118 H 110 H 107 H Respiratory Rate 27 H 23 20 Blood Pressure 99/50 L 108/55 L 105/64 Pulse Oximetry 100 100 100 02/04/18 15:30 02/04/18 15:45 02/04/18 16:00 Temperature 99.1 F 99.1 F 99.1 F Pulse Rate 111 H 110 H 109 H Respiratory Rate 21 23 21 Blood Pressure 110/57 L 114/59 L 118/60 Pulse Oximetry 100 100 100 02/04/18 16:15 02/04/18 16:30 02/04/18 16:45 Temperature 99.3 F 99.5 F 99.5 F Pulse Rate 115 H 115 H 111 H Respiratory Rate 22 21 24 Blood Pressure 113/55 L 105/51 L 126/70 Pulse Oximetry 100 100 100 02/04/18 17:00 02/04/18 17:15 02/04/18 17:30 Temperature 99.7 F H 99.7 F H 99.9 F H Pulse Rate 120 H 120 H 138 H Respiratory Rate 26 H 26 H 32 H Blood Pressure 116/56 L 122/69 142/66 H Pulse Oximetry 100 100 99 02/04/18 17:45 02/04/18 18:00 02/04/18 18:14 Temperature 99.9 F H 99.9 F H Pulse Rate 137 H 123 H Respiratory Rate 29 H 26 H 21 Blood Pressure 130/70 155/76 H Pulse Oximetry 99 99 99 02/04/18 18:15 02/04/18 18:44 02/04/18 18:46 Temperature 99.9 F H 100.0 F H Pulse Rate 110 H 106 H Respiratory Rate 21 16 Blood Pressure 104/60 86/59 L 97/50 L Pulse Oximetry 99 99 02/04/18 19:00 02/04/18 19:01 02/04/18 19:16 Temperature 99.0 F 99.3 F 98.8 F Pulse Rate 103 H 103 H 106 H Respiratory Rate 16 16 17 Blood Pressure 85/54 L 96/66 L Pulse Oximetry 100 100 100 02/04/18 19:31 02/04/18 19:46 02/04/18 20:00 Temperature 100.4 F H 100.4 F H 100.4 F H Pulse Rate 106 H 111 H 123 H Respiratory Rate 16 17 29 H Blood Pressure 104/69 119/65 Pulse Oximetry 100 100 99 02/04/18 20:01 02/04/18 20:16 02/04/18 20:31 Temperature 100.6 F H 100.4 F H 100.4 F H Pulse Rate 125 H 112 H 112 H Respiratory Rate 27 H 16 17 Blood Pressure 134/62 119/60 82/48 L Pulse Oximetry 100 100 100 02/04/18 20:33 02/04/18 20:46 02/04/18 21:00 Temperature 100.4 F H 99.9 F H Pulse Rate 109 H 110 H 108 H Respiratory Rate 17 16 16 Blood Pressure 114/59 L 99/63 L Pulse Oximetry 100 100 100 02/04/18 21:01 02/04/18 21:16 02/04/18 21:20 Temperature 99.9 F H 100.2 F H Pulse Rate 109 H 104 H Respiratory Rate 16 16 21 Blood Pressure 101/52 L 100/52 L Pulse Oximetry 100 100 99 02/04/18 21:31 02/04/18 21:46 02/04/18 22:00 Temperature 100.4 F H 100.4 F H 100.4 F H Pulse Rate 102 H 103 H 103 H Respiratory Rate 17 16 13 Blood Pressure 111/65 109/71 Pulse Oximetry 100 100 100 02/04/18 22:01 02/04/18 22:16 02/04/18 22:31 Temperature 100.4 F H 100.2 F H 100.4 F H Pulse Rate 102 H 98 H 99 H Respiratory Rate 13 13 13 Blood Pressure 106/81 115/54 L 120/54 L Pulse Oximetry 100 100 100 02/04/18 22:46 02/04/18 22:54 02/04/18 23:00 Temperature 100.4 F H 100.4 F H 100.6 F H Pulse Rate 97 H 95 H 107 H Respiratory Rate 16 16 16 Blood Pressure 105/48 L 96/62 L Pulse Oximetry 100 100 100 02/04/18 23:01 02/04/18 23:16 02/04/18 23:31 Temperature 100.6 F H 100.8 F H 100.8 F H Pulse Rate 101 H 103 H 103 H Respiratory Rate 16 16 16 Blood Pressure 122/60 102/58 L 114/59 L Pulse Oximetry 100 100 100 02/04/18 23:46 02/05/18 00:00 02/05/18 00:01 Temperature 100.8 F H 100.8 F H 100.8 F H Pulse Rate 99 H 101 H 103 H Respiratory Rate 16 16 16 Blood Pressure 102/51 L 119/62 Pulse Oximetry 100 100 100 02/05/18 00:16 02/05/18 00:24 11/06/18 00:31 Temperature 100.8 F H 100.8 F H Pulse Rate 102 H 106 H Respiratory Rate 16 21 17 Blood Pressure 130/59 L 145/82 H Pulse Oximetry 100 100 100 02/05/18 00:46 02/05/18 01:00 02/05/18 01:01 Temperature 100.6 F H 100.6 F H 100.6 F H Pulse Rate 123 H 101 H 103 H Respiratory Rate 27 H 16 16 Blood Pressure 132/63 120/59 L Pulse Oximetry 100 100 100 02/05/18 01:16 02/05/18 01:31 02/05/18 01:46 Temperature 100.4 F H 100.4 F H 100.4 F H Pulse Rate 97 H 100 H 100 H Respiratory Rate 16 16 16 Blood Pressure 122/67 143/64 H 121/54 L Pulse Oximetry 100 100 100 02/05/18 02:00 02/05/18 02:01 02/05/18 02:16 Temperature 100.4 F H 100.4 F H 100.2 F H Pulse Rate 99 H 99 H 102 H Respiratory Rate 21 24 16 Blood Pressure 136/59 L 132/60 Pulse Oximetry 100 100 100 02/05/18 02:31 02/05/18 02:46 02/05/18 03:00 Temperature 100.2 F H 100.2 F H 100.2 F H Pulse Rate 99 H 92 H 88 Respiratory Rate 16 16 16 Blood Pressure 129/57 L 122/59 L Pulse Oximetry 100 100 100 02/05/18 03:01 02/05/18 03:16 02/05/18 03:31 Temperature 100.2 F H 100.2 F H 100.2 F H Pulse Rate 89 91 H 93 H Respiratory Rate 16 16 16 Blood Pressure 87/55 L 100/59 L 118/85 Pulse Oximetry 100 100 100 02/05/18 03:46 02/05/18 04:00 02/05/18 04:01 Temperature 100.0 F H 100.0 F H 100.0 F H Pulse Rate 92 H 91 H 86 Respiratory Rate 16 16 16 Blood Pressure 107/55 L 122/58 L Pulse Oximetry 100 100 100 02/05/18 04:16 02/05/18 04:31 02/05/18 04:46 Temperature 99.9 F H 99.9 F H 99.9 F H Pulse Rate 90 91 H 91 H Respiratory Rate 16 16 16 Blood Pressure 95/50 L 111/56 L 132/62 Pulse Oximetry 100 100 100 02/05/18 05:00 02/05/18 05:01 02/05/18 05:16 Temperature 99.9 F H 99.9 F H 99.9 F H Pulse Rate 94 H 91 H 87 Respiratory Rate 13 11 L 15 Blood Pressure 115/56 L 105/60 Pulse Oximetry 100 100 100 02/05/18 05:31 02/05/18 05:46 02/05/18 06:00 Temperature 99.9 F H 99.7 F H 99.7 F H Pulse Rate 90 85 90 Respiratory Rate 15 16 44 H Blood Pressure 108/55 L 112/55 L Pulse Oximetry 100 100 100 02/05/18 06:01 02/05/18 06:18 02/05/18 08:00 Temperature 99.7 F H 99.9 F H Pulse Rate 89 90 Respiratory Rate 21 16 15 Blood Pressure 123/67 144/71 H Pulse Oximetry 100 99 100 02/05/18 08:55 Temperature Pulse Rate Respiratory Rate 23 Blood Pressure Pulse Oximetry 90 L Intake & Output 02/04/18 02/05/18 02/05/18 18:59 06:59 18:59 Intake Total 300 / 300 100 / 100 Output Total 2600 / 2600 1175 / 1175 Balance -2300 / -2300 -1075 / -1075 Weight 85.8 kg Intake: IV 300 / 300 100 / 100 Diprivan 1000 mg/100 ml Inj 1, 100 / 100 100 / 100 000 mg In 100 ml @ 5 MCG/KG/MIN 2.55 mls/hr IV.CONT TITRATE PRN Rx#:[id number] INVanz Inj 1,000 MG In NS Inj 100 / 100 100 ML @ 200 mls/hr IV.SIG Q24H TATYANA Rx#:[id number] Flagyl 500 MG Inj 100 ML @ 100 100 / 100 mls/hr IV.SIG Q8H TATYANA Rx#: [id number] Output: Urine Amount (Catheter) 2600 / 2600 1175 / 1175 Indwelling Temp Sensing 2600 / 2600 1175 / 1175 Catheter Other: Date of Last Bowel Movement 01/31/18 01/31/18 - Constitutional mild distress - Routine HEENT Exam Head: Present: normocephalic Eye: Present: EOMI ENT: Present: mucous membranes moist - Routine Neck Exam Present: trachea midline. Absent: tracheal deviation - Routine Respiratory Exam Present: decreased breath sounds. Absent: accessory muscle use - Routine Cardiovascular Exam Present: irregularly irregular - Routine Abdominal Exam Present: soft, normoactive bowel sounds. Absent: tenderness - Routine Extremities Exam Present: edema - Routine Neurological Exam Patient is on Propofol. - Urinary Catheter Management Indwelling Temp Sensing Catheter Cath placed during this visit: no Urethral indwelling: Yes Reason for continuing: Hourly intake/output <Jesse Avila - Last Filed: 02/05/18 10:00> Vital signs: Vital Signs 02/04/18 10:23 02/04/18 10:30 02/04/18 11:00 Temperature 98.1 F 98.1 F Pulse Rate 79 84 Respiratory Rate 17 17 25 H Blood Pressure 104/69 113/85 Pulse Oximetry 98 100 02/04/18 11:30 02/04/18 12:00 02/04/18 12:30 Temperature 98.4 F 98.6 F 98.4 F Pulse Rate 86 90 95 H Respiratory Rate 16 20 18 Blood Pressure 127/60 106/57 L 116/53 L Pulse Oximetry 100 100 100 02/04/18 12:45 02/04/18 13:00 02/04/18 13:15 Temperature 98.4 F 98.4 F 98.4 F Pulse Rate 96 H 103 H 106 H Respiratory Rate 20 21 16 Blood Pressure 111/55 L 111/55 L 110/55 L Pulse Oximetry 100 100 100 02/04/18 13:30 02/04/18 13:45 02/04/18 14:00 Temperature 98.4 F 98.4 F 98.4 F Pulse Rate 114 H 112 H 118 H Respiratory Rate 24 17 21 Blood Pressure 116/57 L 110/76 106/68 Pulse Oximetry 100 100 100 02/04/18 14:15 02/04/18 14:30 02/04/18 14:45 Temperature 98.6 F 98.8 F 99.0 F Pulse Rate 125 H 118 H 118 H Respiratory Rate 25 H 23 27 H Blood Pressure 114/80 108/55 L 99/50 L Pulse Oximetry 100 100 100 02/04/18 15:00 02/04/18 15:15 02/04/18 15:30 Temperature 99.0 F 99.0 F 99.1 F Pulse Rate 110 H 107 H 111 H Respiratory Rate 23 20 21 Blood Pressure 108/55 L 105/64 110/57 L Pulse Oximetry 100 100 100 02/04/18 15:45 02/04/18 16:00 02/04/18 16:15 Temperature 99.1 F 99.1 F 99.3 F Pulse Rate 110 H 109 H 115 H Respiratory Rate 23 21 22 Blood Pressure 114/59 L 118/60 113/55 L Pulse Oximetry 100 100 100 02/04/18 16:30 02/04/18 16:45 02/04/18 17:00 Temperature 99.5 F 99.5 F 99.7 F H Pulse Rate 115 H 111 H 120 H Respiratory Rate 21 24 26 H Blood Pressure 105/51 L 126/70 116/56 L Pulse Oximetry 100 100 100 02/04/18 17:15 02/04/18 17:30 02/04/18 17:45 Temperature 99.7 F H 99.9 F H 99.9 F H Pulse Rate 120 H 138 H 137 H Respiratory Rate 26 H 32 H 29 H Blood Pressure 122/69 142/66 H 130/70 Pulse Oximetry 100 99 99 02/04/18 18:00 02/04/18 18:14 02/04/18 18:15 Temperature 99.9 F H 99.9 F H Pulse Rate 123 H 110 H Respiratory Rate 26 H 21 21 Blood Pressure 155/76 H 104/60 Pulse Oximetry 99 99 99 02/04/18 18:44 02/04/18 18:46 02/04/18 19:00 Temperature 100.0 F H 99.0 F Pulse Rate 106 H 103 H Respiratory Rate 16 16 Blood Pressure 86/59 L 97/50 L Pulse Oximetry 99 100 02/04/18 19:01 02/04/18 19:16 02/04/18 19:31 Temperature 99.3 F 98.8 F 100.4 F H Pulse Rate 103 H 106 H 106 H Respiratory Rate 16 17 16 Blood Pressure 85/54 L 96/66 L 104/69 Pulse Oximetry 100 100 100 02/04/18 19:46 02/04/18 20:00 02/04/18 20:01 Temperature 100.4 F H 100.4 F H 100.6 F H Pulse Rate 111 H 123 H 125 H Respiratory Rate 17 29 H 27 H Blood Pressure 119/65 134/62 Pulse Oximetry 100 99 100 02/04/18 20:16 02/04/18 20:31 02/04/18 20:33 Temperature 100.4 F H 100.4 F H 100.4 F H Pulse Rate 112 H 112 H 109 H Respiratory Rate 16 17 17 Blood Pressure 119/60 82/48 L 114/59 L Pulse Oximetry 100 100 100 02/04/18 20:46 02/04/18 21:00 02/04/18 21:01 Temperature 99.9 F H 99.9 F H Pulse Rate 110 H 108 H 109 H Respiratory Rate 16 16 16 Blood Pressure 99/63 L 101/52 L Pulse Oximetry 100 100 100 02/04/18 21:16 02/04/18 21:20 02/04/18 21:31 Temperature 100.2 F H 100.4 F H Pulse Rate 104 H 102 H Respiratory Rate 16 21 17 Blood Pressure 100/52 L 111/65 Pulse Oximetry 100 99 100 02/04/18 21:46 02/04/18 22:00 02/04/18 22:01 Temperature 100.4 F H 100.4 F H 100.4 F H Pulse Rate 103 H 103 H 102 H Respiratory Rate 16 13 13 Blood Pressure 109/71 106/81 Pulse Oximetry 100 100 100 02/04/18 22:16 02/04/18 22:31 02/04/18 22:46 Temperature 100.2 F H 100.4 F H 100.4 F H Pulse Rate 98 H 99 H 97 H Respiratory Rate 13 13 16 Blood Pressure 115/54 L 120/54 L 105/48 L Pulse Oximetry 100 100 100 02/04/18 22:54 02/04/18 23:00 02/04/18 23:01 Temperature 100.4 F H 100.6 F H 100.6 F H Pulse Rate 95 H 107 H 101 H Respiratory Rate 16 16 16 Blood Pressure 96/62 L 122/60 Pulse Oximetry 100 100 100 02/04/18 23:16 02/04/18 23:31 02/04/18 23:46 Temperature 100.8 F H 100.8 F H 100.8 F H Pulse Rate 103 H 103 H 99 H Respiratory Rate 16 16 16 Blood Pressure 102/58 L 114/59 L 102/51 L Pulse Oximetry 100 100 100 02/05/18 00:00 02/05/18 00:01 02/05/18 00:16 Temperature 100.8 F H 100.8 F H 100.8 F H Pulse Rate 101 H 103 H 102 H Respiratory Rate 16 16 16 Blood Pressure 119/62 130/59 L Pulse Oximetry 100 100 100 02/05/18 00:24 02/05/18 00:31 02/05/18 00:46 Temperature 100.8 F H 100.6 F H Pulse Rate 106 H 123 H Respiratory Rate 21 17 27 H Blood Pressure 145/82 H 132/63 Pulse Oximetry 100 100 100 02/05/18 01:00 02/05/18 01:01 02/05/18 01:16 Temperature 100.6 F H 100.6 F H 100.4 F H Pulse Rate 101 H 103 H 97 H Respiratory Rate 16 16 16 Blood Pressure 120/59 L 122/67 Pulse Oximetry 100 100 100 02/05/18 01:31 02/05/18 01:46 02/05/18 02:00 Temperature 100.4 F H 100.4 F H 100.4 F H Pulse Rate 100 H 100 H 99 H Respiratory Rate 16 16 21 Blood Pressure 143/64 H 121/54 L Pulse Oximetry 100 100 100 02/05/18 02:01 02/05/18 02:16 02/05/18 02:31 Temperature 100.4 F H 100.2 F H 100.2 F H Pulse Rate 99 H 102 H 99 H Respiratory Rate 24 16 16 Blood Pressure 136/59 L 132/60 129/57 L Pulse Oximetry 100 100 100 02/05/18 02:46 02/05/18 03:00 02/05/18 03:01 Temperature 100.2 F H 100.2 F H 100.2 F H Pulse Rate 92 H 88 89 Respiratory Rate 16 16 16 Blood Pressure 122/59 L 87/55 L Pulse Oximetry 100 100 100 02/05/18 03:16 02/05/18 03:31 02/05/18 03:46 Temperature 100.2 F H 100.2 F H 100.0 F H Pulse Rate 91 H 93 H 92 H Respiratory Rate 16 16 16 Blood Pressure 100/59 L 118/85 107/55 L Pulse Oximetry 100 100 100 02/05/18 04:00 02/05/18 04:01 02/05/18 04:16 Temperature 100.0 F H 100.0 F H 99.9 F H Pulse Rate 91 H 86 90 Respiratory Rate 16 16 16 Blood Pressure 122/58 L 95/50 L Pulse Oximetry 100 100 100 02/05/18 04:31 02/05/18 04:46 02/05/18 05:00 Temperature 99.9 F H 99.9 F H 99.9 F H Pulse Rate 91 H 91 H 94 H Respiratory Rate 16 16 13 Blood Pressure 111/56 L 132/62 Pulse Oximetry 100 100 100 02/05/18 05:01 02/05/18 05:16 02/05/18 05:31 Temperature 99.9 F H 99.9 F H 99.9 F H Pulse Rate 91 H 87 90 Respiratory Rate 11 L 15 15 Blood Pressure 115/56 L 105/60 108/55 L Pulse Oximetry 100 100 100 02/05/18 05:46 02/05/18 06:00 02/05/18 06:01 Temperature 99.7 F H 99.7 F H 99.7 F H Pulse Rate 85 90 89 Respiratory Rate 16 44 H 21 Blood Pressure 112/55 L 123/67 Pulse Oximetry 100 100 100 02/05/18 06:18 02/05/18 08:00 02/05/18 08:55 Temperature 99.9 F H Pulse Rate 90 Respiratory Rate 16 15 23 Blood Pressure 144/71 H Pulse Oximetry 99 100 90 L Intake & Output 02/04/18 02/05/18 02/05/18 18:59 06:59 18:59 Intake Total 300 / 300 100 / 100 Output Total 2600 / 2600 1175 / 1175 Balance -2300 / -2300 -1075 / -1075 Weight 85.8 kg Intake: IV 300 / 300 100 / 100 Diprivan 1000 mg/100 ml Inj 1, 100 / 100 100 / 100 000 mg In 100 ml @ 5 MCG/KG/MIN 2.55 mls/hr IV.CONT TITRATE PRN Rx#:[id number] INVanz Inj 1,000 MG In NS Inj 100 / 100 100 ML @ 200 mls/hr IV.SIG Q24H [facility] Rx#:[id number] Flagyl 500 MG Inj 100 ML @ 100 100 / 100 mls/hr IV.SIG Q8H [facility]YANA Rx#: [id number] Output: Urine Amount (Catheter) 2600 / 2600 1175 / 1175 Indwelling Temp Sensing 2600 / 2600 1175 / 1175 Catheter Other: Date of Last Bowel Movement 01/31/18 01/31/18 - Urinary Catheter Management Indwelling Temp Sensing Catheter Cath placed during this visit: no <Ilia Pimentel - Last Filed: 02/05/18 10:06> Assessment and Plan - Assessment (1) Acute kidney injury Code(s): N17.9 - Acute kidney failure, unspecified Status: Acute Plan: Renal function is better, no evidence of contrast nephropathy after cardiac cath on 02/03. Continue conservative management. Avoid nephrotoxic agents. Monitor urine output and renal function. (2) Type 2 diabetes mellitus Code(s): E11.9 - Type 2 diabetes mellitus without complications Status: Chronic Plan: insulin coverage to maintain blood glucose between 140 and 180. (3) Non-ST elevated myocardial infarction (non-STEMI) Code(s): I21.4 - Non-ST elevation (NSTEMI) myocardial infarction Status: Acute - Plan Cardiology on the case. Went into cardiogenic shock. Underwent cardiac cath and stent placement to LAD. <Jesse Avila - Last Filed: 02/05/18 10:00> - Assessment (1) Acute kidney injury Code(s): N17.9 - Acute kidney failure, unspecified Status: Acute (2) Type 2 diabetes mellitus Code(s): E11.9 - Type 2 diabetes mellitus without complications Status: Chronic (3) Non-ST elevated myocardial infarction (non-STEMI) Code(s): I21.4 - Non-ST elevation (NSTEMI) myocardial infarction Status: Acute - Attending Attestation patient was seen and examined. Agree with above assessment and plan. Renal function is stable. Avoid nephrotoxic agents. <Ilia Pimentel - Last Filed: 02/05/18 10:06>
[2018-02-05 09:46] LABS: ABG Base Excess -4.7 mmol/L (-2-2); ABG PCO2 33 mmHg (38-42); ABG PO2 128 mmHg (61-120)
[2018-02-05] MEDS ORDERED: RESP: Racemic Epinephrine 2.25% 0.5 ML Neb ONE (10:14)
[2018-02-05] MEDS: Spironolactone 25 MG Tablet PO SCH ×2 (10:31→18:16)
[2018-02-05] MEDS: Metoprolol Tartrate 25 MG Tablet PO SCH ×3 (10:31→18:15)
[2018-02-05 11:02] LABS: Albumin 2.3 g/dL (3.4-5.0); Anion Gap 10 meq/L (5-15); Aspartate Aminotransferase 29 U/L (15-37); Blood Urea Nitrogen 34 mg/dL (7-18); Calcium 8.3 mg/dL (8.5-10.1); Carbon Dioxide 20.8 meq/L (21.0-32.0); Chloride 113 meq/L (98-107); Glomerular Filtration Rate 45 mL/min (>89); Glucose,Random 197 mg/dL (74-106); Potassium 3.8 meq/L (3.5-5.1); Sodium 144 meq/L (136-145)
[2018-02-05 11:06] LABS: Alanine Aminotransferase 20 U/L (10-53); Alkaline Phosphatase 79 U/L (45-117)
[2018-02-05] MEDS: Azithromycin Inj 500 MG in Sodium Chlor 0.9% Inj 250 ML IV.SIG SCH (13:19)
--- NOTE | 2018-02-05 14:35 | P.PNPAL ---
Reason for Visit Reason for visit: a. To assist with evaluation and management of symptoms including: Confusion, dyspnea, constipation b. To assist medical decision maker(s) with: better understanding of current medical conditions; weighing benefits/burdens of medical treatment options; making medical treatment decisions. Subjective Subjective/Interval History: This is an 87-year-old female with a past medical history of diabetes, hypertension, rectal cancer in remission, anxiety, depression, coronary artery disease status post stent, former smoker who presented to the emergency department 01/31/2018 plane of chest pain, substernal, pressure, nonradiating, persistent, which resolved with aspirin and sublingual nitro given to her by EMS. She had taken a Xanax earlier to try and help her sleep. Her presenting troponin was 1.25 did she had been seen in the ED on 01/28 and had troponin levels of 0.11, 0.96, 1.08. She was diagnosed with a non-STEMI and seen by cardiology. Cardiac catheterization was held secondary to renal insufficiency. Nephrology consultation was requested for further evaluation. She is seen in [facility] Recently extubated to 2 L nasal cannula. She is confused and stating that she is a prisoner. She states that "they will not let me go home". When asked where she is she cannot say, she is oriented to self only at this time. She is complaining that nobody is getting any food. Attempted to reorient her to her circumstances and explained that she would be getting food later today but she remained confused and agitated. She has been mildly febrile with maximum core temperature 100.8. Urine culture positive for UTI with ESBL E. coli. Antibiotic specific to culture. She remains mildly dyspneic status post extubation on 2 L nasal cannula. She becomes more dyspneic with agitation but is saturating well. Chest x-ray shows no acute cardiopulmonary disease or edema. Given poor cardiac status, she is at risk for recurrent respiratory decline. Last bowel movement was on 01/31, days ago. Due to recent intubation she has not been receiving daily Senokot. Lactulose, Dulcolax suppository and milk of magnesia are available, but not given this time. . Family/Friend Interactions: Due to patient confusion and agitation I felt it might be helpful to have her speak to her family via telephone and called her granddaughter, Treva, who is the healthcare surrogate. Treva spoke to her at length and again tried to reorient her to her circumstances but patient remained agitated stating that they are keeping her prisoner and tying her up. Treva explained that this was because she had had a large heart attack and had been very ill and her grandmother replied, "while everybody up here has not had a heart attack and they are not tied up". Treva inquired as to who "everybody" was, as patient was unaware of where she was so would not be aware of other patients on the floor. It appears that she is unaware she is in the hospital in spite of explaining that the people in the room were her doctors and nurses trying to take care of her. Please also spoke to the staff nurse and the sandblaster supervisor. I received a call from her and her about an hour after my visit with the patient for any further updates. Reviewed likely causes of confusion to include UTI, ICU psychosis, recent sedation and critical illness. Granddaughter plans to have local family come to visit her once cleared for swallowing will ask her ornamental metal fabricator apprentice to come in and give her communion which she feels will give her grandmother great peace. Offered hospital clergy visits, however the family wishes to continue with patient's local ornamental metal fabricator apprentice with whom she is very familiar. . Advance Directives Living Will: Copy in medical record Health Care Surrogate: Copy in medical record Health Care Surrogate Name and Number: Treva Arvizu Objective Vital Signs: Vital Signs 02/04/18 13:45 02/04/18 14:00 02/04/18 14:15 Temperature 98.4 F 98.4 F 98.6 F Pulse Rate 112 H 118 H 125 H Respiratory Rate 17 21 25 H Blood Pressure 110/76 106/68 114/80 Pulse Oximetry 100 100 100 02/04/18 14:30 02/04/18 14:45 02/04/18 15:00 Temperature 98.8 F 99.0 F 99.0 F Pulse Rate 118 H 118 H 110 H Respiratory Rate 23 27 H 23 Blood Pressure 108/55 L 99/50 L 108/55 L Pulse Oximetry 100 100 100 02/04/18 15:15 02/04/18 15:30 02/04/18 15:45 Temperature 99.0 F 99.1 F 99.1 F Pulse Rate 107 H 111 H 110 H Respiratory Rate 20 21 23 Blood Pressure 105/64 110/57 L 114/59 L Pulse Oximetry 100 100 100 02/04/18 16:00 02/04/18 16:15 02/04/18 16:30 Temperature 99.1 F 99.3 F 99.5 F Pulse Rate 109 H 115 H 115 H Respiratory Rate 21 22 21 Blood Pressure 118/60 113/55 L 105/51 L Pulse Oximetry 100 100 100 02/04/18 16:45 02/04/18 17:00 02/04/18 17:15 Temperature 99.5 F 99.7 F H 99.7 F H Pulse Rate 111 H 120 H 120 H Respiratory Rate 24 26 H 26 H Blood Pressure 126/70 116/56 L 122/69 Pulse Oximetry 100 100 100 02/04/18 17:30 02/04/18 17:45 02/04/18 18:00 Temperature 99.9 F H 99.9 F H 99.9 F H Pulse Rate 138 H 137 H 123 H Respiratory Rate 32 H 29 H 26 H Blood Pressure 142/66 H 130/70 155/76 H Pulse Oximetry 99 99 99 02/04/18 18:14 02/04/18 18:15 02/04/18 18:44 Temperature 99.9 F H Pulse Rate 110 H Respiratory Rate 21 21 Blood Pressure 104/60 86/59 L Pulse Oximetry 99 99 02/04/18 18:46 02/04/18 19:00 02/04/18 19:01 Temperature 100.0 F H 99.0 F 99.3 F Pulse Rate 106 H 103 H 103 H Respiratory Rate 16 16 16 Blood Pressure 97/50 L 85/54 L Pulse Oximetry 99 100 100 02/04/18 19:16 02/04/18 19:31 02/04/18 19:46 Temperature 98.8 F 100.4 F H 100.4 F H Pulse Rate 106 H 106 H 111 H Respiratory Rate 17 16 17 Blood Pressure 96/66 L 104/69 119/65 Pulse Oximetry 100 100 100 02/04/18 20:00 02/04/18 20:01 02/04/18 20:16 Temperature 100.4 F H 100.6 F H 100.4 F H Pulse Rate 123 H 125 H 112 H Respiratory Rate 29 H 27 H 16 Blood Pressure 134/62 119/60 Pulse Oximetry 99 100 100 02/04/18 20:31 02/04/18 20:33 02/04/18 20:46 Temperature 100.4 F H 100.4 F H Pulse Rate 112 H 109 H 110 H Respiratory Rate 17 17 16 Blood Pressure 82/48 L 114/59 L 99/63 L Pulse Oximetry 100 100 100 02/04/18 21:00 02/04/18 21:01 02/04/18 21:16 Temperature 99.9 F H 99.9 F H 100.2 F H Pulse Rate 108 H 109 H 104 H Respiratory Rate 16 16 16 Blood Pressure 101/52 L 100/52 L Pulse Oximetry 100 100 100 02/04/18 21:20 02/04/18 21:31 02/04/18 21:46 Temperature 100.4 F H 100.4 F H Pulse Rate 102 H 103 H Respiratory Rate 21 17 16 Blood Pressure 111/65 109/71 Pulse Oximetry 99 100 100 02/04/18 22:00 02/04/18 22:01 02/04/18 22:16 Temperature 100.4 F H 100.4 F H 100.2 F H Pulse Rate 103 H 102 H 98 H Respiratory Rate 13 13 13 Blood Pressure 106/81 115/54 L Pulse Oximetry 100 100 100 02/04/18 22:31 02/04/18 22:46 02/04/18 22:54 Temperature 100.4 F H 100.4 F H 100.4 F H Pulse Rate 99 H 97 H 95 H Respiratory Rate 13 16 16 Blood Pressure 120/54 L 105/48 L 96/62 L Pulse Oximetry 100 100 100 02/04/18 23:00 02/04/18 23:01 02/04/18 23:16 Temperature 100.6 F H 100.6 F H 100.8 F H Pulse Rate 107 H 101 H 103 H Respiratory Rate 16 16 16 Blood Pressure 122/60 102/58 L Pulse Oximetry 100 100 100 02/04/18 23:31 02/04/18 23:46 02/05/18 00:00 Temperature 100.8 F H 100.8 F H 100.8 F H Pulse Rate 103 H 99 H 101 H Respiratory Rate 16 16 16 Blood Pressure 114/59 L 102/51 L Pulse Oximetry 100 100 100 02/05/18 00:01 02/05/18 00:16 02/05/18 00:24 Temperature 100.8 F H 100.8 F H Pulse Rate 103 H 102 H Respiratory Rate 16 16 21 Blood Pressure 119/62 130/59 L Pulse Oximetry 100 100 100 02/05/18 00:31 02/05/18 00:46 02/05/18 01:00 Temperature 100.8 F H 100.6 F H 100.6 F H Pulse Rate 106 H 123 H 101 H Respiratory Rate 17 27 H 16 Blood Pressure 145/82 H 132/63 Pulse Oximetry 100 100 100 02/05/18 01:01 02/05/18 01:16 02/05/18 01:31 Temperature 100.6 F H 100.4 F H 100.4 F H Pulse Rate 103 H 97 H 100 H Respiratory Rate 16 16 16 Blood Pressure 120/59 L 122/67 143/64 H Pulse Oximetry 100 100 100 02/05/18 01:46 02/05/18 02:00 02/05/18 02:01 Temperature 100.4 F H 100.4 F H 100.4 F H Pulse Rate 100 H 99 H 99 H Respiratory Rate 16 21 24 Blood Pressure 121/54 L 136/59 L Pulse Oximetry 100 100 100 02/05/18 02:16 02/05/18 02:31 02/05/18 02:46 Temperature 100.2 F H 100.2 F H 100.2 F H Pulse Rate 102 H 99 H 92 H Respiratory Rate 16 16 16 Blood Pressure 132/60 129/57 L 122/59 L Pulse Oximetry 100 100 100 02/05/18 03:00 02/05/18 03:01 02/05/18 03:16 Temperature 100.2 F H 100.2 F H 100.2 F H Pulse Rate 88 89 91 H Respiratory Rate 16 16 16 Blood Pressure 87/55 L 100/59 L Pulse Oximetry 100 100 100 02/05/18 03:31 02/05/18 03:46 02/05/18 04:00 Temperature 100.2 F H 100.0 F H 100.0 F H Pulse Rate 93 H 92 H 91 H Respiratory Rate 16 16 16 Blood Pressure 118/85 107/55 L Pulse Oximetry 100 100 100 02/05/18 04:01 02/05/18 04:16 02/05/18 04:31 Temperature 100.0 F H 99.9 F H 99.9 F H Pulse Rate 86 90 91 H Respiratory Rate 16 16 16 Blood Pressure 122/58 L 95/50 L 111/56 L Pulse Oximetry 100 100 100 02/05/18 04:46 02/05/18 05:00 02/05/18 05:01 Temperature 99.9 F H 99.9 F H 99.9 F H Pulse Rate 91 H 94 H 91 H Respiratory Rate 16 13 11 L Blood Pressure 132/62 115/56 L Pulse Oximetry 100 100 100 02/05/18 05:16 02/05/18 05:31 02/05/18 05:46 Temperature 99.9 F H 99.9 F H 99.7 F H Pulse Rate 87 90 85 Respiratory Rate 15 15 16 Blood Pressure 105/60 108/55 L 112/55 L Pulse Oximetry 100 100 100 02/05/18 06:00 02/05/18 06:01 02/05/18 06:18 Temperature 99.7 F H 99.7 F H 99.9 F H Pulse Rate 90 89 90 Respiratory Rate 44 H 21 16 Blood Pressure 123/67 144/71 H Pulse Oximetry 100 100 99 02/05/18 08:00 02/05/18 08:55 02/05/18 10:15 Temperature Pulse Rate 120 H Respiratory Rate 15 23 24 Blood Pressure Pulse Oximetry 100 90 L 02/05/18 10:23 02/05/18 10:30 02/05/18 10:36 Temperature Pulse Rate 141 H Respiratory Rate 22 Blood Pressure Pulse Oximetry 98 100 Intake & Output 02/04/18 02/05/18 02/05/18 18:59 06:59 18:59 Intake Total 300 / 300 100 / 100 Output Total 2600 / 2600 1175 / 1175 Balance -2300 / -2300 -1075 / -1075 Weight 189 lb 2.506 oz Intake: IV 300 / 300 100 / 100 Diprivan 1000 mg/100 ml Inj 1, 100 / 100 100 / 100 000 mg In 100 ml @ 5 MCG/KG/MIN 2.55 mls/hr IV.CONT TITRATE PRN Rx#:[id number] INVanz Inj 1,000 MG In NS Inj 100 / 100 100 ML @ 200 mls/hr IV.SIG Q24H TATYANA Rx#:[id number] Flagyl 500 MG Inj 100 ML @ 100 100 / 100 mls/hr IV.SIG Q8H TATYANA Rx#: [id number] Output: Urine Amount (Catheter) 2600 / 2600 1175 / 1175 Indwelling Temp Sensing 2600 / 2600 1175 / 1175 Catheter Other: Date of Last Bowel Movement 01/31/18 01/31/18 01/31/18 Physical Exam: CONSTITUTIONAL/GENERAL: This is an adequately nourished patient, lying in bed, awake, alert, confused. TUBES/LINES/DRAINS: PIV x3 NECK: Trachea midline. Supple, nontender. No palpable thyroid enlargement or nodularity. CARDIOVASCULAR: Irregular rhythm, mildly tachycardic rate with no rub murmur or gallop. Mild JVD. Peripheral pulses symmetric. RESPIRATORY/CHEST: Coarse breath sounds throughout all lung howell with scattered rhonchi. GASTROINTESTINAL: Abdomen soft, non-tender, nondistended. No hepato-splenomegaly , or palpable masses. No guarding. Bowel sounds present. GENITOURINARY: Without palpable bladder distension. MUSCULOSKELETAL: Extremities without clubbing or cyanosis, trace dependent edema. No joint tenderness or effusion noted. No calf tenderness. No mottling or clubbing. NEUROLOGICAL: Alert, confused, oriented to self, moves all extremities to command. PSYCHIATRIC: Anxious, confused. . Diagnostic Tests Laboratory: Laboratory Results - last 72 hr 01/31/18 02/02/18 02/02/18 11:01 05:20 08:36 WBC RBC Hgb Hct MCV MCH MCHC RDW Plt Count MPV Neut % (Auto) Lymph % (Auto) [place] % (Auto) Eos % (Auto) Baso % (Auto) Neut # (Auto) Lymph # (Auto) [place] # (Auto) Eos # (Auto) Baso # (Auto) WBC Differential Differential Comment APTT Puncture Site Right radial Patient Temperature 98.6 O2 Saturation 89 L* ABG pH 7.25 L* ABG pCO2 49 H ABG pO2 68 ABG HCO3 21 L ABG O2 Content 15.9 ABG Base Excess -5.4 L ABG Methemoglobin 1.1 [place] Test Present Hemoglobin 12.7 Carboxyhemoglobin 1.3 O2 Delivery Device Vent Liter Flow Vent Setting See comments Inspired O2 100 Critical Value Yes Sodium Potassium Chloride Carbon Dioxide Anion Gap BUN Creatinine Estimated GFR POC Glucose Random Glucose Hemoglobin A1c 7.8 H Lactic Acid Calcium Magnesium Total Bilirubin AST ALT Alkaline Phosphatase Total Creatine Kinase CK-MB (CK-2) CK-MB (CK-2) % Troponin I B-Natriuretic Peptide 622 H Total Protein Albumin Urine Color Urine Clarity Urine pH Ur Specific [place] Urine Protein Urine Glucose (UA) Urine Ketones Urine Occult Blood Urine Nitrate Urine Bilirubin Urine Urobilinogen Ur Leukocyte Esterase Urine RBC Urine WBC Urine WBC Clumps Amorphous Sediment Urine Bacteria Urine Mucus Micro UA Comment Urine Culture Comments 02/02/18 02/02/18 02/02/18 09:00 15:27 17:18 WBC RBC Hgb Hct MCV MCH MCHC RDW Plt Count MPV Neut % (Auto) Lymph % (Auto) [place] % (Auto) Eos % (Auto) Baso % (Auto) Neut # (Auto) Lymph # (Auto) [place] # (Auto) Eos # (Auto) Baso # (Auto) WBC Differential Differential Comment APTT Puncture Site Patient Temperature O2 Saturation ABG pH ABG pCO2 ABG pO2 ABG HCO3 ABG O2 Content ABG Base Excess ABG Methemoglobin [place] Test Hemoglobin Carboxyhemoglobin O2 Delivery Device Liter Flow Vent Setting Inspired O2 Critical Value Sodium Potassium Chloride Carbon Dioxide Anion Gap BUN Creatinine Estimated GFR POC Glucose 340 H Random Glucose Hemoglobin A1c Lactic Acid 1.8 Calcium Magnesium Total Bilirubin AST ALT Alkaline Phosphatase Total Creatine Kinase CK-MB (CK-2) CK-MB (CK-2) % Troponin I B-Natriuretic Peptide Total Protein Albumin Urine Color Yellow Urine Clarity Cloudy H Urine pH 5.0 Ur Specific [place] 1.014 Urine Protein 30 H Urine Glucose (UA) Negative Urine Ketones 20 Urine Occult Blood Small H Urine Nitrate Positive H Urine Bilirubin Negative Urine Urobilinogen Less than 2 Ur Leukocyte Esterase Large H Urine RBC 17 H Urine WBC Urine WBC Clumps Many H Amorphous Sediment Rare H Urine Bacteria Many H Urine Mucus Few H Micro UA Comment Culture indicated Urine Culture Comments Culture indicated 02/02/18 02/02/18 02/02/18 18:00 18:12 18:12 WBC RBC Hgb Hct MCV MCH MCHC RDW Plt Count MPV Neut % (Auto) Lymph % (Auto) [place] % (Auto) Eos % (Auto) Baso % (Auto) Neut # (Auto) Lymph # (Auto) [place] # (Auto) Eos # (Auto) Baso # (Auto) WBC Differential Differential Comment APTT 41.7 H Puncture Site Right brachial Patient Temperature 98.6 O2 Saturation 98 ABG pH 7.46 H ABG pCO2 30 L ABG pO2 293 H ABG HCO3 21 L ABG O2 Content 16.4 ABG Base Excess -2.6 L ABG Methemoglobin 1.0 [place] Test Present Hemoglobin 11.5 L Carboxyhemoglobin 1.3 O2 Delivery Device Ventilator Liter Flow Vent Setting Prvc 16/550/10+/1.0 Inspired O2 70 Critical Value No Sodium Potassium Chloride Carbon Dioxide Anion Gap BUN Creatinine Estimated GFR POC Glucose Random Glucose Hemoglobin A1c Lactic Acid Calcium Magnesium Total Bilirubin AST ALT Alkaline Phosphatase Total Creatine Kinase CK-MB (CK-2) CK-MB (CK-2) % Troponin I 15.80 H* D B-Natriuretic Peptide Total Protein Albumin Urine Color Urine Clarity Urine pH Ur Specific [place] Urine Protein Urine Glucose (UA) Urine Ketones Urine Occult Blood Urine Nitrate Urine Bilirubin Urine Urobilinogen Ur Leukocyte Esterase Urine RBC Urine WBC Urine WBC Clumps Amorphous Sediment Urine Bacteria Urine Mucus Micro UA Comment Urine Culture Comments 02/02/18 02/02/18 02/02/18 18:32 20:04 20:59 WBC RBC Hgb Hct MCV MCH MCHC RDW Plt Count MPV Neut % (Auto) Lymph % (Auto) [place] % (Auto) Eos % (Auto) Baso % (Auto) Neut # (Auto) Lymph # (Auto) [place] # (Auto) Eos # (Auto) Baso # (Auto) WBC Differential Differential Comment APTT Puncture Site Patient Temperature O2 Saturation ABG pH ABG pCO2 ABG pO2 ABG HCO3 ABG O2 Content ABG Base Excess ABG Methemoglobin [place] Test Hemoglobin Carboxyhemoglobin O2 Delivery Device Liter Flow Vent Setting Inspired O2 Critical Value Sodium Potassium Chloride Carbon Dioxide Anion Gap BUN Creatinine Estimated GFR POC Glucose 283 H 224 H 204 H Random Glucose Hemoglobin A1c Lactic Acid Calcium Magnesium Total Bilirubin AST ALT Alkaline Phosphatase Total Creatine Kinase CK-MB (CK-2) CK-MB (CK-2) % Troponin I B-Natriuretic Peptide Total Protein Albumin Urine Color Urine Clarity Urine pH Ur Specific [place] Urine Protein Urine Glucose (UA) Urine Ketones Urine Occult Blood Urine Nitrate Urine Bilirubin Urine Urobilinogen Ur Leukocyte Esterase Urine RBC Urine WBC Urine WBC Clumps Amorphous Sediment Urine Bacteria Urine Mucus Micro UA Comment Urine Culture Comments 02/02/18 02/02/18 02/03/18 22:22 23:15 00:12 WBC RBC Hgb Hct MCV MCH MCHC RDW Plt Count MPV Neut % (Auto) Lymph % (Auto) [place] % (Auto) Eos % (Auto) Baso % (Auto) Neut # (Auto) Lymph # (Auto) [place] # (Auto) Eos # (Auto) Baso # (Auto) WBC Differential Differential Comment APTT Puncture Site Patient Temperature O2 Saturation ABG pH ABG pCO2 ABG pO2 ABG HCO3 ABG O2 Content ABG Base Excess ABG Methemoglobin [place] Test Hemoglobin Carboxyhemoglobin O2 Delivery Device Liter Flow Vent Setting Inspired O2 Critical Value Sodium Potassium Chloride Carbon Dioxide Anion Gap BUN Creatinine Estimated GFR POC Glucose 199 H 164 H 165 H Random Glucose Hemoglobin A1c Lactic Acid Calcium Magnesium Total Bilirubin AST ALT Alkaline Phosphatase Total Creatine Kinase CK-MB (CK-2) CK-MB (CK-2) % Troponin I B-Natriuretic Peptide Total Protein Albumin Urine Color Urine Clarity Urine pH Ur Specific [place] Urine Protein Urine Glucose (UA) Urine Ketones Urine Occult Blood Urine Nitrate Urine Bilirubin Urine Urobilinogen Ur Leukocyte Esterase Urine RBC Urine WBC Urine WBC Clumps Amorphous Sediment Urine Bacteria Urine Mucus Micro UA Comment Urine Culture Comments 02/03/18 02/03/18 02/03/18 01:28 EST 02:13 02:37 WBC RBC Hgb Hct MCV MCH MCHC RDW Plt Count MPV Neut % (Auto) Lymph % (Auto) [place] % (Auto) Eos % (Auto) Baso % (Auto) Neut # (Auto) Lymph # (Auto) [place] # (Auto) Eos # (Auto) Baso # (Auto) WBC Differential Differential Comment APTT Puncture Site Patient Temperature O2 Saturation ABG pH ABG pCO2 ABG pO2 ABG HCO3 ABG O2 Content ABG Base Excess ABG Methemoglobin [place] Test Hemoglobin Carboxyhemoglobin O2 Delivery Device Liter Flow Vent Setting Inspired O2 Critical Value Sodium Potassium Chloride Carbon Dioxide Anion Gap BUN Creatinine Estimated GFR POC Glucose 143 H 142 H Random Glucose Hemoglobin A1c Lactic Acid Calcium Magnesium Total Bilirubin AST ALT Alkaline Phosphatase Total Creatine Kinase CK-MB (CK-2) CK-MB (CK-2) % Troponin I B-Natriuretic Peptide 858 H Total Protein Albumin Urine Color Urine Clarity Urine pH Ur Specific [place] Urine Protein Urine Glucose (UA) Urine Ketones Urine Occult Blood Urine Nitrate Urine Bilirubin Urine Urobilinogen Ur Leukocyte Esterase Urine RBC Urine WBC Urine WBC Clumps Amorphous Sediment Urine Bacteria Urine Mucus Micro UA Comment Urine Culture Comments 02/03/18 02/03/18 02/03/18 02:37 02:50 02:50 WBC 15.2 H RBC 4.40 Hgb 12.8 Hct 38.7 MCV 88.0 MCH 29.2 MCHC 33.2 RDW 16.3 Plt Count 209 D MPV 10.4 Neut % (Auto) 74.8 H Lymph % (Auto) 12.8 [place] % (Auto) 9.5 H Eos % (Auto) 1.4 Baso % (Auto) 1.5 Neut # (Auto) 11.3 H Lymph # (Auto) 1.9 [place] # (Auto) 1.4 H Eos # (Auto) 0.2 Baso # (Auto) 0.2 WBC Differential . Differential Comment Auto diff final APTT 35.9 H Puncture Site Patient Temperature O2 Saturation ABG pH ABG pCO2 ABG pO2 ABG HCO3 ABG O2 Content ABG Base Excess ABG Methemoglobin [place] Test Hemoglobin Carboxyhemoglobin O2 Delivery Device Liter Flow Vent Setting Inspired O2 Critical Value Sodium 138 Potassium 4.2 Chloride 106 Carbon Dioxide 22.3 Anion Gap 10 BUN 39 H Creatinine 1.77 H Estimated GFR 27 L POC Glucose Random Glucose 156 H Hemoglobin A1c Lactic Acid Calcium 8.6 Magnesium Total Bilirubin AST ALT Alkaline Phosphatase Total Creatine Kinase 579 H CK-MB (CK-2) 11.7 H CK-MB (CK-2) % 2.0 Troponin I 16.90 H* D B-Natriuretic Peptide Total Protein Albumin Urine Color Urine Clarity Urine pH Ur Specific [place] Urine Protein Urine Glucose (UA) Urine Ketones Urine Occult Blood Urine Nitrate Urine Bilirubin Urine Urobilinogen Ur Leukocyte Esterase Urine RBC Urine WBC Urine WBC Clumps Amorphous Sediment Urine Bacteria Urine Mucus Micro UA Comment Urine Culture Comments 02/03/18 02/03/18 02/03/18 02:50 02:58 04:07 WBC RBC Hgb Hct MCV MCH MCHC RDW Plt Count MPV Neut % (Auto) Lymph % (Auto) [place] % (Auto) Eos % (Auto) Baso % (Auto) Neut # (Auto) Lymph # (Auto) [place] # (Auto) Eos # (Auto) Baso # (Auto) WBC Differential Differential Comment APTT Puncture Site Left radial Patient Temperature 98.6 O2 Saturation 97 ABG pH 7.44 H ABG pCO2 30 L ABG pO2 145 H ABG HCO3 20 L ABG O2 Content 18.8 ABG Base Excess -3.7 L ABG Methemoglobin 1.1 [place] Test Present Hemoglobin 13.6 Carboxyhemoglobin 1.1 O2 Delivery Device Ventilator Liter Flow Vent Setting See comment Inspired O2 45 Critical Value No Sodium Potassium Chloride Carbon Dioxide Anion Gap BUN Creatinine Estimated GFR POC Glucose 164 H Random Glucose Hemoglobin A1c Lactic Acid Calcium Magnesium 2.2 Total Bilirubin AST ALT Alkaline Phosphatase Total Creatine Kinase CK-MB (CK-2) CK-MB (CK-2) % Troponin I B-Natriuretic Peptide Total Protein Albumin Urine Color Urine Clarity Urine pH Ur Specific [place] Urine Protein Urine Glucose (UA) Urine Ketones Urine Occult Blood Urine Nitrate Urine Bilirubin Urine Urobilinogen Ur Leukocyte Esterase Urine RBC Urine WBC Urine WBC Clumps Amorphous Sediment Urine Bacteria Urine Mucus Micro UA Comment Urine Culture Comments 02/03/18 02/03/18 02/03/18 04:07 05:54 06:42 WBC RBC Hgb Hct MCV MCH MCHC RDW Plt Count MPV Neut % (Auto) Lymph % (Auto) [place] % (Auto) Eos % (Auto) Baso % (Auto) Neut # (Auto) Lymph # (Auto) [place] # (Auto) Eos # (Auto) Baso # (Auto) WBC Differential Differential Comment APTT Puncture Site Patient Temperature O2 Saturation ABG pH ABG pCO2 ABG pO2 ABG HCO3 ABG O2 Content ABG Base Excess ABG Methemoglobin [place] Test Hemoglobin Carboxyhemoglobin O2 Delivery Device Liter Flow Vent Setting Inspired O2 Critical Value Sodium Potassium Chloride Carbon Dioxide Anion Gap BUN Creatinine Estimated GFR POC Glucose 169 H 207 H 182 H Random Glucose Hemoglobin A1c Lactic Acid Calcium Magnesium Total Bilirubin AST ALT Alkaline Phosphatase Total Creatine Kinase CK-MB (CK-2) CK-MB (CK-2) % Troponin I B-Natriuretic Peptide Total Protein Albumin Urine Color Urine Clarity Urine pH Ur Specific [place] Urine Protein Urine Glucose (UA) Urine Ketones Urine Occult Blood Urine Nitrate Urine Bilirubin Urine Urobilinogen Ur Leukocyte Esterase Urine RBC Urine WBC Urine WBC Clumps Amorphous Sediment Urine Bacteria Urine Mucus Micro UA Comment Urine Culture Comments 02/03/18 02/03/18 02/03/18 08:15 08:29 09:14 WBC RBC Hgb Hct MCV MCH MCHC RDW Plt Count MPV Neut % (Auto) Lymph % (Auto) [place] % (Auto) Eos % (Auto) Baso % (Auto) Neut # (Auto) Lymph # (Auto) [place] # (Auto) Eos # (Auto) Baso # (Auto) WBC Differential Differential Comment APTT Puncture Site Patient Temperature O2 Saturation ABG pH ABG pCO2 ABG pO2 ABG HCO3 ABG O2 Content ABG Base Excess ABG Methemoglobin [place] Test Hemoglobin Carboxyhemoglobin O2 Delivery Device Liter Flow Vent Setting Inspired O2 Critical Value Sodium Potassium Chloride Carbon Dioxide Anion Gap BUN Creatinine Estimated GFR POC Glucose 169 H 161 H Random Glucose Hemoglobin A1c Lactic Acid Calcium Magnesium Total Bilirubin AST ALT Alkaline Phosphatase Total Creatine Kinase 429 H CK-MB (CK-2) 8.6 H CK-MB (CK-2) % 2.0 Troponin I 10.20 H* D B-Natriuretic Peptide Total Protein Albumin Urine Color Urine Clarity Urine pH Ur Specific [place] Urine Protein Urine Glucose (UA) Urine Ketones Urine Occult Blood Urine Nitrate Urine Bilirubin Urine Urobilinogen Ur Leukocyte Esterase Urine RBC Urine WBC Urine WBC Clumps Amorphous Sediment Urine Bacteria Urine Mucus Micro UA Comment Urine Culture Comments 02/03/18 02/03/18 02/03/18 11:08 12:06 12:20 WBC RBC Hgb Hct MCV MCH MCHC RDW Plt Count MPV Neut % (Auto) Lymph % (Auto) [place] % (Auto) Eos % (Auto) Baso % (Auto) Neut # (Auto) Lymph # (Auto) [place] # (Auto) Eos # (Auto) Baso # (Auto) WBC Differential Differential Comment APTT Puncture Site Patient Temperature O2 Saturation ABG pH ABG pCO2 ABG pO2 ABG HCO3 ABG O2 Content ABG Base Excess ABG Methemoglobin [place] Test Hemoglobin Carboxyhemoglobin O2 Delivery Device Liter Flow Vent Setting Inspired O2 Critical Value Sodium Potassium Chloride Carbon Dioxide Anion Gap BUN Creatinine Estimated GFR POC Glucose 185 H 174 H 119 H Random Glucose Hemoglobin A1c Lactic Acid Calcium Magnesium Total Bilirubin AST ALT Alkaline Phosphatase Total Creatine Kinase CK-MB (CK-2) CK-MB (CK-2) % Troponin I B-Natriuretic Peptide Total Protein Albumin Urine Color Urine Clarity Urine pH Ur Specific [place] Urine Protein Urine Glucose (UA) Urine Ketones Urine Occult Blood Urine Nitrate Urine Bilirubin Urine Urobilinogen Ur Leukocyte Esterase Urine RBC Urine WBC Urine WBC Clumps Amorphous Sediment Urine Bacteria Urine Mucus Micro UA Comment Urine Culture Comments 02/03/18 02/03/18 02/03/18 13:09 14:27 15:14 WBC RBC Hgb Hct MCV MCH MCHC RDW Plt Count MPV Neut % (Auto) Lymph % (Auto) [place] % (Auto) Eos % (Auto) Baso % (Auto) Neut # (Auto) Lymph # (Auto) [place] # (Auto) Eos # (Auto) Baso # (Auto) WBC Differential Differential Comment APTT Puncture Site Patient Temperature O2 Saturation ABG pH ABG pCO2 ABG pO2 ABG HCO3 ABG O2 Content ABG Base Excess ABG Methemoglobin [place] Test Hemoglobin Carboxyhemoglobin O2 Delivery Device Liter Flow Vent Setting Inspired O2 Critical Value Sodium Potassium Chloride Carbon Dioxide Anion Gap BUN Creatinine Estimated GFR POC Glucose 173 H 166 H 174 H Random Glucose Hemoglobin A1c Lactic Acid Calcium Magnesium Total Bilirubin AST ALT Alkaline Phosphatase Total Creatine Kinase CK-MB (CK-2) CK-MB (CK-2) % Troponin I B-Natriuretic Peptide Total Protein Albumin Urine Color Urine Clarity Urine pH Ur Specific [place] Urine Protein Urine Glucose (UA) Urine Ketones Urine Occult Blood Urine Nitrate Urine Bilirubin Urine Urobilinogen Ur Leukocyte Esterase Urine RBC Urine WBC Urine WBC Clumps Amorphous Sediment Urine Bacteria Urine Mucus Micro UA Comment Urine Culture Comments 02/03/18 02/03/18 02/03/18 15:36 18:37 18:56 WBC RBC Hgb Hct MCV MCH MCHC RDW Plt Count MPV Neut % (Auto) Lymph % (Auto) [place] % (Auto) Eos % (Auto) Baso % (Auto) Neut # (Auto) Lymph # (Auto) [place] # (Auto) Eos # (Auto) Baso # (Auto) WBC Differential Differential Comment APTT Puncture Site Patient Temperature O2 Saturation ABG pH ABG pCO2 ABG pO2 ABG HCO3 ABG O2 Content ABG Base Excess ABG Methemoglobin [place] Test Hemoglobin Carboxyhemoglobin O2 Delivery Device Liter Flow Vent Setting Inspired O2 Critical Value Sodium Potassium Chloride Carbon Dioxide Anion Gap BUN Creatinine Estimated GFR POC Glucose 158 H 143 H 142 H Random Glucose Hemoglobin A1c Lactic Acid Calcium Magnesium Total Bilirubin AST ALT Alkaline Phosphatase Total Creatine Kinase CK-MB (CK-2) CK-MB (CK-2) % Troponin I B-Natriuretic Peptide Total Protein Albumin Urine Color Urine Clarity Urine pH Ur Specific [place] Urine Protein Urine Glucose (UA) Urine Ketones Urine Occult Blood Urine Nitrate Urine Bilirubin Urine Urobilinogen Ur Leukocyte Esterase Urine RBC Urine WBC Urine WBC Clumps Amorphous Sediment Urine Bacteria Urine Mucus Micro UA Comment Urine Culture Comments 02/03/18 02/03/18 02/03/18 19:32 20:45 21:20 WBC RBC Hgb Hct MCV MCH MCHC RDW Plt Count MPV Neut % (Auto) Lymph % (Auto) [place] % (Auto) Eos % (Auto) Baso % (Auto) Neut # (Auto) Lymph # (Auto) [place] # (Auto) Eos # (Auto) Baso # (Auto) WBC Differential Differential Comment APTT Puncture Site Patient Temperature O2 Saturation ABG pH ABG pCO2 ABG pO2 ABG HCO3 ABG O2 Content ABG Base Excess ABG Methemoglobin [place] Test Hemoglobin Carboxyhemoglobin O2 Delivery Device Liter Flow Vent Setting Inspired O2 Critical Value Sodium Potassium Chloride Carbon Dioxide Anion Gap BUN Creatinine Estimated GFR POC Glucose 138 H 149 H Random Glucose Hemoglobin A1c Lactic Acid 2.3 H Calcium Magnesium Total Bilirubin AST ALT Alkaline Phosphatase Total Creatine Kinase CK-MB (CK-2) CK-MB (CK-2) % Troponin I B-Natriuretic Peptide Total Protein Albumin Urine Color Urine Clarity Urine pH Ur Specific [place] Urine Protein Urine Glucose (UA) Urine Ketones Urine Occult Blood Urine Nitrate Urine Bilirubin Urine Urobilinogen Ur Leukocyte Esterase Urine RBC Urine WBC Urine WBC Clumps Amorphous Sediment Urine Bacteria Urine Mucus Micro UA Comment Urine Culture Comments 02/03/18 02/03/18 02/04/18 22:05 23:08 00:18 WBC RBC Hgb Hct MCV MCH MCHC RDW Plt Count MPV Neut % (Auto) Lymph % (Auto) [place] % (Auto) Eos % (Auto) Baso % (Auto) Neut # (Auto) Lymph # (Auto) [place] # (Auto) Eos # (Auto) Baso # (Auto) WBC Differential Differential Comment APTT Puncture Site Patient Temperature O2 Saturation ABG pH ABG pCO2 ABG pO2 ABG HCO3 ABG O2 Content ABG Base Excess ABG Methemoglobin [place] Test Hemoglobin Carboxyhemoglobin O2 Delivery Device Liter Flow Vent Setting Inspired O2 Critical Value Sodium Potassium Chloride Carbon Dioxide Anion Gap BUN Creatinine Estimated GFR POC Glucose 173 H 159 H 161 H Random Glucose Hemoglobin A1c Lactic Acid Calcium Magnesium Total Bilirubin AST ALT Alkaline Phosphatase Total Creatine Kinase CK-MB (CK-2) CK-MB (CK-2) % Troponin I B-Natriuretic Peptide Total Protein Albumin Urine Color Urine Clarity Urine pH Ur Specific [place] Urine Protein Urine Glucose (UA) Urine Ketones Urine Occult Blood Urine Nitrate Urine Bilirubin Urine Urobilinogen Ur Leukocyte Esterase Urine RBC Urine WBC Urine WBC Clumps Amorphous Sediment Urine Bacteria Urine Mucus Micro UA Comment Urine Culture Comments 02/04/18 02/04/18 02/04/18 01:08 02:28 03:28 WBC RBC Hgb Hct MCV MCH MCHC RDW Plt Count MPV Neut % (Auto) Lymph % (Auto) [place] % (Auto) Eos % (Auto) Baso % (Auto) Neut # (Auto) Lymph # (Auto) [place] # (Auto) Eos # (Auto) Baso # (Auto) WBC Differential Differential Comment APTT Puncture Site Patient Temperature O2 Saturation ABG pH ABG pCO2 ABG pO2 ABG HCO3 ABG O2 Content ABG Base Excess ABG Methemoglobin [place] Test Hemoglobin Carboxyhemoglobin O2 Delivery Device Liter Flow Vent Setting Inspired O2 Critical Value Sodium Potassium Chloride Carbon Dioxide Anion Gap BUN Creatinine Estimated GFR POC Glucose 139 H 154 H 165 H Random Glucose Hemoglobin A1c Lactic Acid Calcium Magnesium Total Bilirubin AST ALT Alkaline Phosphatase Total Creatine Kinase CK-MB (CK-2) CK-MB (CK-2) % Troponin I B-Natriuretic Peptide Total Protein Albumin Urine Color Urine Clarity Urine pH Ur Specific [place] Urine Protein Urine Glucose (UA) Urine Ketones Urine Occult Blood Urine Nitrate Urine Bilirubin Urine Urobilinogen Ur Leukocyte Esterase Urine RBC Urine WBC Urine WBC Clumps Amorphous Sediment Urine Bacteria Urine Mucus Micro UA Comment Urine Culture Comments 02/04/18 02/04/18 02/04/18 04:38 04:49 04:49 WBC 9.2 RBC 3.86 L Hgb 11.4 L Hct 33.9 L MCV 87.9 MCH 29.5 MCHC 33.5 RDW 16.5 Plt Count 176 MPV 10.5 Neut % (Auto) 76.2 H Lymph % (Auto) 12.4 [place] % (Auto) 9.5 H Eos % (Auto) 1.6 Baso % (Auto) 0.3 Neut # (Auto) 7.0 Lymph # (Auto) 1.1 [place] # (Auto) 0.9 Eos # (Auto) 0.1 Baso # (Auto) 0.0 WBC Differential . Differential Comment Auto diff final APTT Puncture Site Patient Temperature O2 Saturation ABG pH ABG pCO2 ABG pO2 ABG HCO3 ABG O2 Content ABG Base Excess ABG Methemoglobin [place] Test Hemoglobin Carboxyhemoglobin O2 Delivery Device Liter Flow Vent Setting Inspired O2 Critical Value Sodium 141 Potassium 4.3 Chloride 111 H Carbon Dioxide 17.9 L Anion Gap 12 BUN 38 H Creatinine 1.30 H Estimated GFR 39 L POC Glucose 153 H Random Glucose 149 H Hemoglobin A1c Lactic Acid Calcium 8.0 L Magnesium Total Bilirubin AST ALT Alkaline Phosphatase Total Creatine Kinase CK-MB (CK-2) CK-MB (CK-2) % Troponin I B-Natriuretic Peptide Total Protein Albumin Urine Color Urine Clarity Urine pH Ur Specific [place] Urine Protein Urine Glucose (UA) Urine Ketones Urine Occult Blood Urine Nitrate Urine Bilirubin Urine Urobilinogen Ur Leukocyte Esterase Urine RBC Urine WBC Urine WBC Clumps Amorphous Sediment Urine Bacteria Urine Mucus Micro UA Comment Urine Culture Comments 02/04/18 02/04/18 02/04/18 05:32 06:13 07:35 WBC RBC Hgb Hct MCV MCH MCHC RDW Plt Count MPV Neut % (Auto) Lymph % (Auto) [place] % (Auto) Eos % (Auto) Baso % (Auto) Neut # (Auto) Lymph # (Auto) [place] # (Auto) Eos # (Auto) Baso # (Auto) WBC Differential Differential Comment APTT Puncture Site Patient Temperature O2 Saturation ABG pH ABG pCO2 ABG pO2 ABG HCO3 ABG O2 Content ABG Base Excess ABG Methemoglobin [place] Test Hemoglobin Carboxyhemoglobin O2 Delivery Device Liter Flow Vent Setting Inspired O2 Critical Value Sodium Potassium Chloride Carbon Dioxide Anion Gap BUN Creatinine Estimated GFR POC Glucose 154 H 175 H 157 H Random Glucose Hemoglobin A1c Lactic Acid Calcium Magnesium Total Bilirubin AST ALT Alkaline Phosphatase Total Creatine Kinase CK-MB (CK-2) CK-MB (CK-2) % Troponin I B-Natriuretic Peptide Total Protein Albumin Urine Color Urine Clarity Urine pH Ur Specific [place] Urine Protein Urine Glucose (UA) Urine Ketones Urine Occult Blood Urine Nitrate Urine Bilirubin Urine Urobilinogen Ur Leukocyte Esterase Urine RBC Urine WBC Urine WBC Clumps Amorphous Sediment Urine Bacteria Urine Mucus Micro UA Comment Urine Culture Comments 02/04/18 02/04/18 02/04/18 08:27 09:41 11:45 WBC RBC Hgb Hct MCV MCH MCHC RDW Plt Count MPV Neut % (Auto) Lymph % (Auto) [place] % (Auto) Eos % (Auto) Baso % (Auto) Neut # (Auto) Lymph # (Auto) [place] # (Auto) Eos # (Auto) Baso # (Auto) WBC Differential Differential Comment APTT Puncture Site Patient Temperature O2 Saturation ABG pH ABG pCO2 ABG pO2 ABG HCO3 ABG O2 Content ABG Base Excess ABG Methemoglobin [place] Test Hemoglobin Carboxyhemoglobin O2 Delivery Device Liter Flow Vent Setting Inspired O2 Critical Value Sodium Potassium Chloride Carbon Dioxide Anion Gap BUN Creatinine Estimated GFR POC Glucose 165 H 160 H 167 H Random Glucose Hemoglobin A1c Lactic Acid Calcium Magnesium Total Bilirubin AST ALT Alkaline Phosphatase Total Creatine Kinase CK-MB (CK-2) CK-MB (CK-2) % Troponin I B-Natriuretic Peptide Total Protein Albumin Urine Color Urine Clarity Urine pH Ur Specific [place] Urine Protein Urine Glucose (UA) Urine Ketones Urine Occult Blood Urine Nitrate Urine Bilirubin Urine Urobilinogen Ur Leukocyte Esterase Urine RBC Urine WBC Urine WBC Clumps Amorphous Sediment Urine Bacteria Urine Mucus Micro UA Comment Urine Culture Comments 02/04/18 02/04/18 02/04/18 13:25 15:37 15:37 WBC 9.5 RBC 3.56 L Hgb 10.9 L Hct 31.7 L MCV 89.2 MCH 30.6 MCHC 34.3 RDW 16.4 Plt Count 198 MPV 10.1 Neut % (Auto) 84.0 H Lymph % (Auto) 6.1 L [place] % (Auto) 8.2 H Eos % (Auto) 1.4 Baso % (Auto) 0.3 Neut # (Auto) 8.0 H Lymph # (Auto) 0.6 L [place] # (Auto) 0.8 Eos # (Auto) 0.1 Baso # (Auto) 0.0 WBC Differential . Differential Comment Auto diff final APTT Puncture Site Right radial Patient Temperature 98.6 O2 Saturation 97 ABG pH 7.39 ABG pCO2 32 L ABG pO2 130 H ABG HCO3 19 L ABG O2 Content 16.4 ABG Base Excess -4.8 L ABG Methemoglobin 1.0 [place] Test Present Hemoglobin 11.9 L Carboxyhemoglobin 1.1 O2 Delivery Device Ventilator Liter Flow Vent Setting Cpap5/ps5 Inspired O2 40 Critical Value No Sodium 144 Potassium 3.9 Chloride 111 H Carbon Dioxide 20.3 L Anion Gap 13 BUN 38 H Creatinine 1.21 H Estimated GFR 42 L POC Glucose Random Glucose 191 H Hemoglobin A1c Lactic Acid Calcium 8.4 L Magnesium Total Bilirubin 0.5 AST 37 ALT 20 Alkaline Phosphatase 78 Total Creatine Kinase CK-MB (CK-2) CK-MB (CK-2) % Troponin I B-Natriuretic Peptide Total Protein 7.1 Albumin 2.4 L Urine Color Urine Clarity Urine pH Ur Specific [place] Urine Protein Urine Glucose (UA) Urine Ketones Urine Occult Blood Urine Nitrate Urine Bilirubin Urine Urobilinogen Ur Leukocyte Esterase Urine RBC Urine WBC Urine WBC Clumps Amorphous Sediment Urine Bacteria Urine Mucus Micro UA Comment Urine Culture Comments 02/04/18 02/04/18 02/05/18 15:37 21:19 00:45 WBC RBC Hgb Hct MCV MCH MCHC RDW Plt Count MPV Neut % (Auto) Lymph % (Auto) [place] % (Auto) Eos % (Auto) Baso % (Auto) Neut # (Auto) Lymph # (Auto) [place] # (Auto) Eos # (Auto) Baso # (Auto) WBC Differential Differential Comment APTT Puncture Site Patient Temperature O2 Saturation ABG pH ABG pCO2 ABG pO2 ABG HCO3 ABG O2 Content ABG Base Excess ABG Methemoglobin [place] Test Hemoglobin Carboxyhemoglobin O2 Delivery Device Liter Flow Vent Setting Inspired O2 Critical Value Sodium Potassium Chloride Carbon Dioxide Anion Gap BUN Creatinine Estimated GFR POC Glucose 205 H 224 H Random Glucose Hemoglobin A1c Lactic Acid Calcium Magnesium 2.1 Total Bilirubin AST ALT Alkaline Phosphatase Total Creatine Kinase CK-MB (CK-2) CK-MB (CK-2) % Troponin I B-Natriuretic Peptide Total Protein Albumin Urine Color Urine Clarity Urine pH Ur Specific [place] Urine Protein Urine Glucose (UA) Urine Ketones Urine Occult Blood Urine Nitrate Urine Bilirubin Urine Urobilinogen Ur Leukocyte Esterase Urine RBC Urine WBC Urine WBC Clumps Amorphous Sediment Urine Bacteria Urine Mucus Micro UA Comment Urine Culture Comments 02/05/18 02/05/18 02/05/18 03:51 04:12 04:13 WBC 7.5 RBC 4.01 Hgb 11.6 Hct 35.8 MCV 89.2 MCH 29.0 MCHC 32.5 RDW 16.3 Plt Count 177 MPV 10.0 Neut % (Auto) 74.0 H Lymph % (Auto) 12.6 [place] % (Auto) 11.5 H Eos % (Auto) 1.6 Baso % (Auto) 0.3 Neut # (Auto) 5.5 Lymph # (Auto) 0.9 L [place] # (Auto) 0.9 Eos # (Auto) 0.1 Baso # (Auto) 0.0 WBC Differential . Differential Comment Auto diff final APTT Puncture Site Patient Temperature O2 Saturation ABG pH ABG pCO2 ABG pO2 ABG HCO3 ABG O2 Content ABG Base Excess ABG Methemoglobin [place] Test Hemoglobin Carboxyhemoglobin O2 Delivery Device Liter Flow Vent Setting Inspired O2 Critical Value Sodium Potassium Chloride Carbon Dioxide Anion Gap BUN Creatinine 1.21 H Estimated GFR 42 L POC Glucose 195 H Random Glucose Hemoglobin A1c Lactic Acid Calcium Magnesium Total Bilirubin AST ALT Alkaline Phosphatase Total Creatine Kinase CK-MB (CK-2) CK-MB (CK-2) % Troponin I B-Natriuretic Peptide Total Protein Albumin Urine Color Urine Clarity Urine pH Ur Specific [place] Urine Protein Urine Glucose (UA) Urine Ketones Urine Occult Blood Urine Nitrate Urine Bilirubin Urine Urobilinogen Ur Leukocyte Esterase Urine RBC Urine WBC Urine WBC Clumps Amorphous Sediment Urine Bacteria Urine Mucus Micro UA Comment Urine Culture Comments 02/05/18 02/05/18 02/05/18 08:56 09:35 09:55 WBC RBC Hgb Hct MCV MCH MCHC RDW Plt Count MPV Neut % (Auto) Lymph % (Auto) [place] % (Auto) Eos % (Auto) Baso % (Auto) Neut # (Auto) Lymph # (Auto) [place] # (Auto) Eos # (Auto) Baso # (Auto) WBC Differential Differential Comment APTT Puncture Site Right radial Patient Temperature 98.6 O2 Saturation 97 ABG pH 7.39 ABG pCO2 33 L ABG pO2 128 H ABG HCO3 19 L ABG O2 Content 17.4 ABG Base Excess -4.7 L ABG Methemoglobin 1.0 [place] Test Present Hemoglobin 12.7 Carboxyhemoglobin 1.1 O2 Delivery Device Ventilator Liter Flow Vent Setting Cpap5/5 Inspired O2 35 Critical Value No Sodium 144 Potassium 3.8 Chloride 113 H Carbon Dioxide 20.8 L Anion Gap 10 BUN 34 H Creatinine 1.13 H Estimated GFR 45 L POC Glucose 219 H Random Glucose 197 H Hemoglobin A1c Lactic Acid Calcium 8.3 L Magnesium Total Bilirubin 0.4 AST 29 ALT 20 Alkaline Phosphatase 79 Total Creatine Kinase CK-MB (CK-2) CK-MB (CK-2) % Troponin I B-Natriuretic Peptide Total Protein 7.0 Albumin 2.3 L Urine Color Urine Clarity Urine pH Ur Specific [place] Urine Protein Urine Glucose (UA) Urine Ketones Urine Occult Blood Urine Nitrate Urine Bilirubin Urine Urobilinogen Ur Leukocyte Esterase Urine RBC Urine WBC Urine WBC Clumps Amorphous Sediment Urine Bacteria Urine Mucus Micro UA Comment Urine Culture Comments 02/05/18 02/05/18 09:55 11:22 WBC RBC Hgb Hct MCV MCH MCHC RDW Plt Count MPV Neut % (Auto) Lymph % (Auto) [place] % (Auto) Eos % (Auto) Baso % (Auto) Neut # (Auto) Lymph # (Auto) [place] # (Auto) Eos # (Auto) Baso # (Auto) WBC Differential Differential Comment APTT Puncture Site Patient Temperature O2 Saturation ABG pH ABG pCO2 ABG pO2 ABG HCO3 ABG O2 Content ABG Base Excess ABG Methemoglobin [place] Test Hemoglobin Carboxyhemoglobin O2 Delivery Device Liter Flow Vent Setting Inspired O2 Critical Value Sodium Potassium Chloride Carbon Dioxide Anion Gap BUN Creatinine Estimated GFR POC Glucose 226 H Random Glucose Hemoglobin A1c Lactic Acid Calcium Magnesium 2.1 Total Bilirubin AST ALT Alkaline Phosphatase Total Creatine Kinase CK-MB (CK-2) CK-MB (CK-2) % Troponin I B-Natriuretic Peptide Total Protein Albumin Urine Color Urine Clarity Urine pH Ur Specific [place] Urine Protein Urine Glucose (UA) Urine Ketones Urine Occult Blood Urine Nitrate Urine Bilirubin Urine Urobilinogen Ur Leukocyte Esterase Urine RBC Urine WBC Urine WBC Clumps Amorphous Sediment Urine Bacteria Urine Mucus Micro UA Comment Urine Culture Comments Result Diagrams: 02/05/18 04:13 02/05/18 09:55 Microbiology: Microbiology 02/03/18 02:37 Aerobic Blood Culture - Preliminary Blood - Peripheral No growth in 2 days Anaerobic Blood Culture - Preliminary No growth in 2 days 02/02/18 23:05 Aerobic Blood Culture - Preliminary Blood - Peripheral No growth in 3 days Anaerobic Blood Culture - Final QNS - See aerobic report. 01/31/18 21:38 Aerobic Blood Culture - Final Blood - Peripheral No growth in 5 days Anaerobic Blood Culture - Final No growth in 5 days 01/31/18 21:43 Aerobic Blood Culture - Final Blood - Peripheral No growth in 5 days Anaerobic Blood Culture - Final No growth in 5 days 02/02/18 12:45 Gram Stain - Final Sputum - Endotracheal Sputum Culture - Final Moderate growth normal respiratory yue 02/02/18 09:00 Urine Culture - Final Clean Catch Urine Escherichia coli ESBL positive Multidrug Resistant Imaging: Chest X-Ray 01/31/18 02:15 CONCLUSION: No significant change mild left base atelectasis. Otherwise within normal limits. Abdomen/Bladder Ultrasound 02/02/18 00:00 CONCLUSION: 1. Increased renal echogenicity typical of chronic parenchymal changes. 2. No evidence of acute obstructive uropathy. 3. Small bilateral benign-appearing cysts. Abdomen/Pelvis CT 02/02/18 00:00 CONCLUSION: 1. No acute abnormalities are seen in the abdomen or pelvis. 2. Mildly atrophic left kidney with vascular calcifications. 3. Aortoiliac atherosclerosis. No aneurysm. 4. Cholelithiasis. 5. Bilateral small pleural effusions and mild to moderate basilar atelectasis. 6. Coronary artery calcification. 7. Nonspecific mass of the visualized left breast. Last mammogram in our system was 2012. Up-to-date bilateral mammography with a diagnostic left breast mammogram recommended. Chest X-Ray 02/02/18 00:00 CONCLUSION: Worsening aeration Chest X-Ray 02/02/18 00:00 CONCLUSION: 1. Endotracheal tube and nasogastric tube in place. 2. Slight increase in hazy opacity at the right lung base. Patchy opacity left lung base partially visualized. Chest X-Ray 02/03/18 00:00 CONCLUSION: Endotracheal tube tip is a bit deep Improving aeration Chest X-Ray 02/04/18 10:43 CONCLUSION: Minimal left basilar density and probable small pleural effusion. Chest X-Ray 02/05/18 08:20 CONCLUSION: No acute cardiopulmonary disease. Procedures: 02/02: Intubation . Assessment and Plan Pertinent Non-Medical Issues: Psychosocial: She was born in [facility] and lived there most of her life. She was however her passed in 1983. She moved to [place] in the early s. 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 She has 1 son. Spiritual: [employer] available. Legal: Living will on the chart with healthcare surrogate. Ethical issues impacting care: None noted. . Important Contacts: Granddaughter: Treva Arvizu Son: Vicky Arvizu . Prognosis: Her prognosis is guarded. She is of advanced age at 87 and showing signs of decline. In addition to renal insufficiency she has multiple cardiac risk factors to include hypertension, hyperlipidemia, obesity with BMI 30.8 kg/m, uncontrolled diabetes with a hemoglobin A1c greater than 9 and evidence of at minimum a non-STEMI. Cardiac catheterization per the citrus fruit packer report would be a high risk/"heroic" procedure. She is also febrile with no known source of infection. Urinalysis has been negative on 01/29 and 01/31, influenza is negative and blood cultures are negative times 1 day. Empiric antibiotic coverage is being initiated as cultures are pending. She is at increased risk of continued hospitalizations, complications and decline. . Code Status: Full Code Plan: PLAN: Legal decision maker: Patient at this time is confused and not capacitated for decision-making. It is uncertain if she will regain capacity. Living will and healthcare surrogate on the chart name her granddaughter Treva and Treva's brother Gonzalez as joint healthcare surrogate's. Gonzalez is a member of the [employer] currently guarding the president and unavailable. Goals: Aggressive CODE STATUS: FULL CODE SYMPTOMS: * Chest pain: No chest pain status post left heart catheterization with stent placement to the LAD. Pulmonary edema and cardiogenic shock are improving, now off vasopressors. Remains on milrinone for inotropic support. Cardiology following. * Dyspnea: Mild dyspnea status post extubation. On 2 L nasal cannula, saturating well. Receiving diuretics for pulmonary edema, good urine output, improving on current therapy. * Constipation: Last bowel movement was 01/31, patient has not been receiving Senokot due to critical illness, inability to swallow. No PRN doses of lactulose or milk of magnesia have been given, no suppository given. Once cleared by speech therapy, would recommend an oral dose of laxative. Palliative care will continue to follow the patient during hospital course as condition evolves, to assist patient/decision-maker with understanding of their medical conditions, weighing benefits/burdens of treatment options, for clarification of goals of treatment. Additionally will assist with any symptoms of palliative concern. . Attestation Attestation: To help prompt me to consider important information that might be impacting today's encounter and assessment, information from prior notes written by myself or my colleagues may have been "brought forward" into today's note. My signature on this note, however, is an attestation that I personally performed the exam, history, and/or decision-making noted today, and, unless otherwise indicated, the interactions with patient, family, and staff as well as the review of records all occurred today. I also attest that the listed assessment and stated plan reflect my best clinical judgment today based on the combination of historical information, prior notes, and today's exam/ interactions. When time spent is documented, it refers only to time spent today by the signer, or if indicated, combined time spent today by collaborating physician/nurse practitioner. .
[2018-02-05] MEDS ORDERED: Pharmacy Ordered Lab Info OTHER ONE (14:45)
[2018-02-06] MEDS: Insulin NovoLOG Aspart Correctional Sugar Inj SQ SCH ×7 (00:18→23:41)
[2018-02-06] MEDS: Oral Hygiene Kit OROPHARYNG SCH ×5 (00:19→23:42)
--- NOTE | 2018-02-06 01:12 | P.PNCA ---
Subjective Interval history: Extubated Doing well, no chest pain Afib with controlled rates Medications and Allergies Active Medications: Active Medications Acetaminophen (Tylenol) 500 mg PO Q4H PRN PRN Reason: FEVER > 100.4 F Last Admin: 02/03/18 22:56 Dose: 500 mg Al Hydroxide/Mg Hydroxide (Milk Of Magnesia Liq) 30 ml PO Q12H PRN PRN Reason: Mild Constipation Albuterol (Duoneb Neb (Prn)) 1 ampul NEB Q2HR NEB PRN PRN Reason: SHORTNESS OF BREATH Alprazolam (Xanax) 0.5 mg PO Q8H PRN PRN Reason: ANXIETY Last Admin: 02/02/18 05:26 Dose: 0.5 mg Aspirin (Ecotrin) 81 mg PO DAILY [facility] Last Admin: 02/05/18 13:33 Dose: 81 mg Atorvastatin Calcium (Lipitor) 40 mg PO HS [facility] Last Admin: 02/05/18 20:15 Dose: 40 mg Bisacodyl (Dulcolax Supp) 10 mg RECTAL DAILY PRN PRN Reason: SEVERE CONSITIPATION Chlorhexidine Gluconate (Peridex 0.12% Oral Kit) 15 ml OROPHARYNG BID@0800, 2000 [facility] Last Admin: 02/05/18 20:17 Dose: 15 ml Clopidogrel Bisulfate (Plavix) 75 mg PO DAILY [facility] Last Admin: 02/05/18 13:32 Dose: 75 mg Dextrose (D50w Vial) 50 ml IV.PUSH UNSCH PRN PRN Reason: PER HYPOGLYCEMIA PROTOCOL Famotidine (Pepcid Pf Inj) 10 mg IV.PUSH Q12HR [facility] Last Admin: 02/05/18 20:17 Dose: 10 mg Glucagon (Glucagon Inj) 1 mg OTHER PRN PRN PRN Reason: for Hypoglycemia Protocol Heparin Sodium (Porcine) (Heparin Inj) 5,000 units SQ Q8HR [facility] Last Admin: 02/05/18 23:22 Dose: 5,000 units Nitroglycerin/Dextrose (Nitroglycerin Drip Premix) 50 mg in 250 mls @ 1.5 mls/ hr IV.CONT TITRATE PRN; Protocol PRN Reason: Per Protocol Last Titration: 02/01/18 18:42 Dose: 10 mcg/min, 3 mls/hr Propofol (Diprivan 1000 Mg/100 Ml Inj) 1,000 mg in 100 mls @ 2.55 mls/hr IV.CONT TITRATE PRN; Protocol PRN Reason: Per Protocol Last Titration: 02/05/18 09:55 Dose: 0 mcg/kg/min, 0 mls/hr Azithromycin 500 mg/ Sodium (Chloride) 250 mls @ 250 mls/hr IV.SIG Q24H [facility] Last Infusion: 02/05/18 14:05 Dose: Infused Phenylephrine HCl 40 mg/ (Sodium Chloride) 500 mls @ 30 mls/hr IV.CONT TITRATE PRN; Protocol PRN Reason: See Protocol Last Titration: 02/03/18 17:52 Dose: 0 mcg/min, 0 mls/hr Milrinone Lactate 20 mg/ (Sodium Chloride) 100 mls @ 0 mls/hr IV.CONT .Q0M [facility]NA ; Protocol Last Admin: 02/04/18 12:33 Dose: 0.125 mcg/kg/min, 3.34 mls/hr Ertapenem 1,000 mg/ Sodium (Chloride) 100 mls @ 200 mls/hr IV.SIG Q24H [facility] Last Infusion: 02/05/18 11:30 Dose: Infused Insulin Aspart (Novolog Insulin Correctional Sugar Inj) 0 unit SQ Q4HR [facility]; Protocol Last Admin: 02/06/18 00:18 Dose: 7 unit Lactulose (Lactulose Liq) 30 ml PO DAILY PRN PRN Reason: SEVERE CONSITIPATION Metoprolol Tartrate (Lopressor) 25 mg PO TID [facility] Last Admin: 02/05/18 18:15 Dose: 25 mg Miscellaneous (Pill Splitter) 1 each OTHER UNSCH PRN PRN Reason: SEE LABEL COMMENTS Miscellaneous Medication () 1 each OROPHARYNG 0000,0400,1200,1600 [facility] Last Admin: 02/06/18 00:19 Dose: 1 each Morphine Sulfate (Morphine Inj) 2 mg IV.PUSH Q20M PRN PRN Reason: PAIN 1-10 Last Admin: 02/01/18 02:53 Dose: 2 mg Nitroglycerin (Nitro-Bid 2% Oint) 0.5 inch TOPICAL Q6HR [facility] Last Admin: 02/06/18 00:18 Dose: 0.5 inch Sennosides (Senokot) 17.2 mg PO Q12H PRN PRN Reason: Moderate Constipation Sodium Chloride (Ns Flush) 2 ml IV.FLUSH BID [facility] Last Admin: 02/05/18 20:17 Dose: 2 ml Sodium Chloride (Ns Flush) 2 ml IV.FLUSH UNSCH PRN PRN Reason: FLUSH AFTER USING IV ACCESS Spironolactone (Aldactone) 25 mg PO BID@0900,1800 [facility] Last Admin: 02/05/18 18:16 Dose: 25 mg Terbutaline Sulfate (Brethine Inj) 1 mg SQ UNSCH PRN PRN Reason: For Extravasation Tramadol HCl (Ultram) 50 mg PO Q6H PRN PRN Reason: Pain 1-10 Last Admin: 02/02/18 05:25 Dose: 50 mg Whey (Beneprotein Powder) 1 packet G-TUBE TID [facility] Last Admin: 02/05/18 18:15 Dose: Not Given Allergies Allergy/AdvReac Type Severity Reaction Status Date / Time penicillin G Allergy Severe UNKNOWN Verified 01/31/18 02:06 Sulfa (Sulfonamide Allergy Severe UNKNOWN Verified 01/31/18 02:06 Antibiotics) ciprofloxacin AdvReac unknown Verified 02/03/18 11:14 Home Medications Medication Instructions Recorded Confirmed Type alprazolam 0.5 mg PO Q8HR PRN 01/31/18 01/31/18 History tramadol 50 mg PO Q6H PRN 01/31/18 01/31/18 History Physical Exam Vital signs: Vital Signs 02/05/18 01:16 02/05/18 01:31 02/05/18 01:46 Temperature 100.4 F H 100.4 F H 100.4 F H Pulse Rate 97 H 100 H 100 H Respiratory Rate 16 16 16 Blood Pressure 122/67 143/64 H 121/54 L Pulse Oximetry 100 100 100 02/05/18 02:00 02/05/18 02:01 02/05/18 02:16 Temperature 100.4 F H 100.4 F H 100.2 F H Pulse Rate 99 H 99 H 102 H Respiratory Rate 21 24 16 Blood Pressure 136/59 L 132/60 Pulse Oximetry 100 100 100 02/05/18 02:31 02/05/18 02:46 02/05/18 03:00 Temperature 100.2 F H 100.2 F H 100.2 F H Pulse Rate 99 H 92 H 88 Respiratory Rate 16 16 16 Blood Pressure 129/57 L 122/59 L Pulse Oximetry 100 100 100 02/05/18 03:01 02/05/18 03:16 02/05/18 03:31 Temperature 100.2 F H 100.2 F H 100.2 F H Pulse Rate 89 91 H 93 H Respiratory Rate 16 16 16 Blood Pressure 87/55 L 100/59 L 118/85 Pulse Oximetry 100 100 100 02/05/18 03:46 02/05/18 04:00 02/05/18 04:01 Temperature 100.0 F H 100.0 F H 100.0 F H Pulse Rate 92 H 91 H 86 Respiratory Rate 16 16 16 Blood Pressure 107/55 L 122/58 L Pulse Oximetry 100 100 100 02/05/18 04:16 02/05/18 04:31 02/05/18 04:46 Temperature 99.9 F H 99.9 F H 99.9 F H Pulse Rate 90 91 H 91 H Respiratory Rate 16 16 16 Blood Pressure 95/50 L 111/56 L 132/62 Pulse Oximetry 100 100 100 02/05/18 05:00 02/05/18 05:01 02/05/18 05:16 Temperature 99.9 F H 99.9 F H 99.9 F H Pulse Rate 94 H 91 H 87 Respiratory Rate 13 11 L 15 Blood Pressure 115/56 L 105/60 Pulse Oximetry 100 100 100 02/05/18 05:31 02/05/18 05:46 02/05/18 06:00 Temperature 99.9 F H 99.7 F H 99.7 F H Pulse Rate 90 85 90 Respiratory Rate 15 16 44 H Blood Pressure 108/55 L 112/55 L Pulse Oximetry 100 100 100 02/05/18 06:01 02/05/18 06:18 02/05/18 08:00 Temperature 99.7 F H 99.9 F H Pulse Rate 89 90 Respiratory Rate 21 16 15 Blood Pressure 123/67 144/71 H Pulse Oximetry 100 99 100 02/05/18 08:55 02/05/18 10:15 02/05/18 10:23 Temperature Pulse Rate 120 H Respiratory Rate 23 24 Blood Pressure Pulse Oximetry 90 L 98 02/05/18 10:30 02/05/18 10:36 02/05/18 14:02 Temperature Pulse Rate 141 H Respiratory Rate 22 Blood Pressure 106/62 Pulse Oximetry 100 02/05/18 14:17 02/05/18 14:32 02/05/18 14:47 Temperature 100.9 F H 101.1 F H 101.1 F H Pulse Rate 95 H 93 H 90 Respiratory Rate 29 H 20 16 Blood Pressure 120/59 L 129/62 121/63 Pulse Oximetry 98 99 100 02/05/18 15:00 02/05/18 15:02 02/05/18 15:17 Temperature 100.9 F H 100.9 F H 100.9 F H Pulse Rate 85 91 H 89 Respiratory Rate 19 19 18 Blood Pressure 116/59 L 111/58 L Pulse Oximetry 100 100 100 02/05/18 15:32 02/05/18 15:47 02/05/18 16:00 Temperature 100.9 F H 100.9 F H 100.9 F H Pulse Rate 92 H 102 H 100 H Respiratory Rate 17 28 H 19 Blood Pressure 113/60 131/72 Pulse Oximetry 100 94 L 100 02/05/18 16:02 02/05/18 16:17 02/05/18 16:32 Temperature 100.9 F H 100.9 F H 100.6 F H Pulse Rate 97 H 96 H 97 H Respiratory Rate 23 16 17 Blood Pressure 126/60 124/61 140/61 Pulse Oximetry 95 100 100 02/05/18 16:47 02/05/18 17:00 02/05/18 17:02 Temperature 100.6 F H 100.4 F H 100.4 F H Pulse Rate 92 H 111 H 104 H Respiratory Rate 18 28 H 29 H Blood Pressure 99/55 L 127/60 Pulse Oximetry 99 98 99 02/05/18 17:17 02/05/18 17:32 02/05/18 17:47 Temperature 100.4 F H 100.2 F H 100.4 F H Pulse Rate 99 H 100 H 106 H Respiratory Rate 18 16 23 Blood Pressure 127/62 124/59 L 138/81 Pulse Oximetry 02/05/18 18:00 02/05/18 18:02 02/05/18 18:17 Temperature 100.2 F H 100.2 F H 100.2 F H Pulse Rate 107 H 102 H 99 H Respiratory Rate 25 H 19 19 Blood Pressure 137/63 136/70 Pulse Oximetry 02/05/18 18:32 02/05/18 18:47 02/05/18 19:00 Temperature 100.2 F H 100.2 F H 100.2 F H Pulse Rate 92 H 84 85 Respiratory Rate 19 16 17 Blood Pressure 147/71 H 122/70 Pulse Oximetry 100 100 02/05/18 19:02 02/05/18 19:17 02/05/18 19:32 Temperature 100.2 F H 100.2 F H 100.2 F H Pulse Rate 85 86 85 Respiratory Rate 17 15 26 H Blood Pressure 116/78 115/60 123/59 L Pulse Oximetry 100 100 100 02/05/18 19:47 02/05/18 20:00 02/05/18 20:02 Temperature 100.2 F H 100.0 F H 100.0 F H Pulse Rate 87 89 86 Respiratory Rate 21 20 18 Blood Pressure 120/64 125/61 Pulse Oximetry 100 100 100 02/05/18 20:17 02/05/18 20:32 02/05/18 20:47 Temperature 100.0 F H 99.7 F H 99.1 F Pulse Rate 81 85 93 H Respiratory Rate 21 18 33 H Blood Pressure 136/63 130/75 133/59 L Pulse Oximetry 100 100 92 L 02/05/18 20:50 02/05/18 21:00 02/05/18 21:02 Temperature 99.5 F 99.7 F H Pulse Rate 87 85 Respiratory Rate 25 H 18 Blood Pressure 129/59 L Pulse Oximetry 100 99 98 02/05/18 21:17 02/05/18 21:32 02/05/18 21:47 Temperature 99.5 F 99.1 F 99.1 F Pulse Rate 88 87 87 Respiratory Rate 17 17 19 Blood Pressure 136/63 129/69 129/68 Pulse Oximetry 99 98 98 02/05/18 22:00 02/05/18 22:02 02/05/18 22:17 Temperature 99.0 F 99.0 F 99.1 F Pulse Rate 90 87 85 Respiratory Rate 18 19 19 Blood Pressure 132/60 128/61 Pulse Oximetry 98 98 97 02/05/18 22:32 02/05/18 22:47 02/05/18 23:00 Temperature 99.1 F 99.1 F 99.3 F Pulse Rate 81 107 H 99 H Respiratory Rate 19 27 H 30 H Blood Pressure 117/57 L 131/69 Pulse Oximetry 96 100 100 02/05/18 23:02 02/05/18 23:17 Temperature 99.3 F 99.5 F Pulse Rate 93 H 88 Respiratory Rate 31 H 20 Blood Pressure 144/60 H 129/70 Pulse Oximetry 99 99 Intake & Output 02/05/18 02/05/18 02/06/18 06:59 18:59 06:59 Intake Total 100 / 100 590 / 590 Output Total 1175 / 1175 1200 / 1200 Balance -1075 / -1075 -610 / -610 Weight 85.8 kg Intake: IV 100 / 100 350 / 350 Diprivan 1000 mg/100 ml Inj 1, 100 / 100 000 mg In 100 ml @ 5 MCG/KG/MIN 2.55 mls/hr IV.CONT TITRATE PRN Rx#:[id number] Azithromycin Inj 500 MG In NS 250 / 250 Inj 250 ML @ 250 mls/hr IV.SIG Q24H [facility] Rx#:[id number] INVanz Inj 1,000 MG In NS Inj 100 / 100 100 ML @ 200 mls/hr IV.SIG Q24H [facility] Rx#:[id number] Oral 240 / 240 Output: Urine Amount (Catheter) 1175 / 1175 1200 / 1200 Indwelling Temp Sensing 1175 / 1175 1200 / 1200 Catheter Other: Date of Last Bowel Movement 01/31/18 01/31/18 01/31/18 Narrative: GENERAL: NAD SKIN: Cool and dry HEAD: Atraumatic. Normocephalic. EYES: Pupils equal and round. No scleral icterus. No injection or drainage. ENT: No nasal bleeding or discharge. Mucous membranes pink and moist. NECK: Trachea midline. No JVD. ET tube in place CARDIOVASCULAR: Irregularly irregular RESPIRATORY: No accessory muscle use. Crackles/rales noted bilaterally. GASTROINTESTINAL: Abdomen soft, non-tender, nondistended. Hepatic and splenic margins not palpable. MUSCULOSKELETAL: Extremities without clubbing, cyanosis, or edema. No obvious deformities. NEUROLOGICAL: No focal deficits - Urinary Catheter Management Indwelling Temp Sensing Catheter Cath placed during this visit: no Urethral indwelling: Yes Reason for continuing: Hourly intake/output Results 02/05/18 04:13 02/05/18 09:55 Cardiac Enzymes 02/04/18 02/05/18 Range/Units 15:37 09:55 AST 37 29 (15-37) U/L CBC 02/04/18 02/04/18 02/05/18 Range/Units 04:49 15:37 04:13 WBC 9.2 9.5 7.5 (4.0-11.0) th/mm3 RBC 3.86 L 3.56 L 4.01 (4.00-5.30) mil/mm3 Hgb 11.4 L 10.9 L 11.6 (11.6-15.3) gm/dL Hct 33.9 L 31.7 L 35.8 (35.0-46.0) % Plt Count 176 198 177 (150-450) th/mm3 Neut # (Auto) 7.0 8.0 H 5.5 (1.8-7.7) th/mm3 Lymph # (Auto) 1.1 0.6 L 0.9 L (1.0-4.8) th/mm3 [place] # (Auto) 0.9 0.8 0.9 (0.0-0.9) th/mm3 Eos # (Auto) 0.1 0.1 0.1 (0.0-0.4) th/mm3 Baso # (Auto) 0.0 0.0 0.0 (0.0-0.2) th/mm3 Comprehensive Metabolic Panel 02/04/18 02/04/18 02/05/18 Range/Units 04:49 15:37 04:12 Sodium 141 144 (136-145) meq/L Potassium 4.3 3.9 (3.5-5.1) meq/L Chloride 111 H 111 H (98-107) meq/L Carbon Dioxide 17.9 L 20.3 L (21.0-32.0) meq/L BUN 38 H 38 H (7-18) mg/dL Creatinine 1.30 H 1.21 H 1.21 H (0.50-1.00) mg/dL Calcium 8.0 L 8.4 L (8.5-10.1) mg/dL AST 37 (15-37) U/L ALT 20 (10-53) U/L Alkaline Phosphatase 78 (45-117) U/L Total Protein 7.1 (6.4-8.2) g/dL Albumin 2.4 L (3.4-5.0) g/dL 02/05/18 Range/Units 09:55 Sodium 144 (136-145) meq/L Potassium 3.8 (3.5-5.1) meq/L Chloride 113 H (98-107) meq/L Carbon Dioxide 20.8 L (21.0-32.0) meq/L BUN 34 H (7-18) mg/dL Creatinine 1.13 H (0.50-1.00) mg/dL Calcium 8.3 L (8.5-10.1) mg/dL AST 29 (15-37) U/L ALT 20 (10-53) U/L Alkaline Phosphatase 79 (45-117) U/L Total Protein 7.0 (6.4-8.2) g/dL Albumin 2.3 L (3.4-5.0) g/dL Intake and Output 02/05/18 02/05/18 02/06/18 14:59 22:59 06:59 Intake Total 350 / 350 240 / 240 Output Total 1200 / 1200 Balance 350 / 350 -960 / -960 Intake: IV 350 / 350 Azithromycin Inj 500 MG In NS 250 / 250 Inj 250 ML @ 250 mls/hr IV.SIG Q24H [facility] Rx#:[id number] INVanz Inj 1,000 MG In NS Inj 100 / 100 100 ML @ 200 mls/hr IV.SIG Q24H [facility] Rx#:[id number] Oral 240 / 240 Output: Urine Amount (Catheter) 1200 / 1200 Indwelling Temp Sensing 1200 / 1200 Catheter Other: Date of Last Bowel Movement 01/31/18 01/31/18 - Imaging and Cardiology Imaging: Impressions Chest X-Ray 02/04/18 10:43 CONCLUSION: Minimal left basilar density and probable small pleural effusion. Chest X-Ray 02/05/18 08:20 CONCLUSION: No acute cardiopulmonary disease. Assessment and Plan - Assessment (1) Frail elderly Code(s): R54 - Age-related physical debility Status: Acute (2) Acute myocardial infarction Code(s): I21.9 - Acute myocardial infarction, unspecified Status: Acute (3) Febrile illness Code(s): R50.9 - Fever, unspecified Status: Acute (4) Acute kidney injury Code(s): N17.9 - Acute kidney failure, unspecified Status: Acute (5) Atrial fibrillation Code(s): I48.91 - Unspecified atrial fibrillation Status: Acute (6) Cardiogenic shock Code(s): R57.0 - Cardiogenic shock Status: Acute (7) Acute hypoxemic respiratory failure Code(s): J96.01 - Acute respiratory failure with hypoxia Status: Acute (8) Pulmonary edema cardiac cause Code(s): I50.1 - Left ventricular failure, unspecified Status: Acute (9) Acute myocardial infarction Code(s): I21.9 - Acute myocardial infarction, unspecified Status: Acute - Plan 1) Acute myocardial infarction anteriorly 2) Cardiogenic shock 3) NSVT 4) LOLIS Plan: 1) Diuresed well 2) Con't with diuresis 3) Extubated 4) Discussed with Dr. Medrano, agree with Milrinone to try to help with EF of 20% 5) ASA/Plavix for PCI 6) Eventual Cardiomyopathy meds 7) Possible repeat echo later in the week 8) Will need to discuss with family about anticoagulation for AFib Combination of antiplatelet and anticoagulation on discharge
--- NOTE | 2018-02-06 03:43 | XR ---
EXAM DATE: 02/06/2018 3:39 AM EST AGE/SEX: 87 years / Female INDICATIONS: Respiratory Disease. CLINICAL DATA: This is the patient's subsequent encounter. Patient reports that signs and symptoms h ave been present for 1 week and indicates a pain score of Nonresponsive. MEDICAL/SURGICAL HISTORY: . Cardiovascular disease. Hypertension. Carcinoma, rectal. Diabetes. . Appendectomy. Hysterectomy. COMPARISON: [facility] – [place]ST 1V SINGLE AP, 02/05/2018. . FINDINGS: There has been interval extubation and removal of nasogastric tube. Aeration is stable with mild cent ral vascular congestion and parenchymal opacity in the left lung base. CONCLUSION: Interval extubation. Stable aeration. Electronically signed by: Mitchell Fox MD 02/06/2018 3:42 AM EST
[2018-02-06] MEDS: Heparin - SQ 10,000 UNITS/ML Vial SQ SCH ×3 (05:32→21:49)
[2018-02-06 05:42] LABS: Hematocrit 32.5 % (35.0-46.0); Hemoglobin 10.6 gm/dL (11.6-15.3); Mean Corpuscular HGB Conc 32.7 % (32.0-36.0); Mean Corpuscular Hemoglobin 28.7 pg (27.0-34.0); Platelet Count 229 th/mm3 (150-450); Red Cell Distribution Width 15.9 % (11.6-17.2); White Blood Count 9.7 th/mm3 (4.0-11.0)
[2018-02-06 06:02] LABS: Alanine Aminotransferase 20 U/L (10-53); Albumin 2.5 g/dL (3.4-5.0); Anion Gap 9 meq/L (5-15); Aspartate Aminotransferase 32 U/L (15-37); Blood Urea Nitrogen 34 mg/dL (7-18); Calcium 8.5 mg/dL (8.5-10.1); Carbon Dioxide 23.6 meq/L (21.0-32.0); Chloride 113 meq/L (98-107); Glomerular Filtration Rate 46 mL/min (>89); Glucose,Random 193 mg/dL (74-106); Magnesium 2.4 mg/dL (1.5-2.5); Sodium 146 meq/L (136-145)
[2018-02-06 06:04] LABS: Alkaline Phosphatase 79 U/L (45-117); Total Protein 7.3 g/dL (6.4-8.2)
[2018-02-06] MEDS: Famotidine PF Inj 20 MG/2 ML Vial IV.PUSH SCH ×2 (08:13→21:47)
[2018-02-06] MEDS: Metoprolol Tartrate 25 MG Tablet PO SCH ×3 (08:13→21:48)
[2018-02-06] MEDS: Beneprotein Powder Packet G-TUBE SCH ×3 (08:14→21:48)
--- NOTE | 2018-02-06 08:23 | P.PNCC ---
Subjective Subjective Remarks/Hospital Course: I have been asked to see emergently this 79-year-old female with a history of diabetes, anxiety, depression, history of rectal cancer in remission, CAD status post PCI, recent admission on 01/28 for non-ST elevation OR discharged on 01/29. Presented 01/31 with acute onset of dull pressure-like nonradiating chest pain resolved with aspirin and sublingual nitroglycerin. On arrival to the ICU she is clearly markedly labored respiratory effort and hypoxemia despite a nonrebreathing mask. She required intubation immediately upon arrival to get oxygen saturation greater than 90% and mechanical and ventilation with elevated end expiratory pressure was required to maintain adequate oxygenation. She appears to be undergoing a stuttering infarct and remains on a heparin drip. Fever on unknown origin, worsening lung infiltrates however. Start abx, adjust per ID service. 02/03: Improved oxygenation on mechanical ventilation with elevated end expiratory pressure. Labs consistent with left heart dysfunction and acute myocardial infarction. Spontaneous urine output has improved modestly. 02/04: Critically ill but overall showing some clinical improvement. Underwent left heart catheterization yesterday, PCI with LUZMARIA to LAD. Received Lasix 20 mg yesterday with more than 2 L urine output. On sedation hold weakly follows some commands 02/05: Tolerated several hours of CPAP yesterday. Currently lightly sedated with propofol. Wakes up easily follows commands. Patient remains in atrial fibrillation but currently rate controlled heart rate 85-90 bpm. Received single dose of digoxin yesterday for urine output 3.7 L in last 24 hours with diuresis. Start Aldactone 25 twice daily 02/06: Extubated yesterday tolerating very well. Good oxygen saturation on nasal cannula today. Patient is alert awake oriented to person and place, well aware of her current illness. Rhythm remains atrial fibrillation but rate is well controlled. Will increase Aldactone to 50 mg twice daily Objective Vital Signs / I&O: Vital Signs 02/05/18 08:55 02/05/18 10:15 02/05/18 10:23 Temperature Pulse Rate 120 H Respiratory Rate 23 24 Blood Pressure Pulse Oximetry 90 L 98 02/05/18 10:30 02/05/18 10:36 02/05/18 14:02 Temperature Pulse Rate 141 H Respiratory Rate 22 Blood Pressure 106/62 Pulse Oximetry 100 02/05/18 14:17 02/05/18 14:32 02/05/18 14:47 Temperature 100.9 F H 101.1 F H 101.1 F H Pulse Rate 95 H 93 H 90 Respiratory Rate 29 H 20 16 Blood Pressure 120/59 L 129/62 121/63 Pulse Oximetry 98 99 100 02/05/18 15:00 02/05/18 15:02 02/05/18 15:17 Temperature 100.9 F H 100.9 F H 100.9 F H Pulse Rate 85 91 H 89 Respiratory Rate 19 19 18 Blood Pressure 116/59 L 111/58 L Pulse Oximetry 100 100 100 02/05/18 15:32 02/05/18 15:47 02/05/18 16:00 Temperature 100.9 F H 100.9 F H 100.9 F H Pulse Rate 92 H 102 H 100 H Respiratory Rate 17 28 H 19 Blood Pressure 113/60 131/72 Pulse Oximetry 100 94 L 100 02/05/18 16:02 02/05/18 16:17 02/05/18 16:32 Temperature 100.9 F H 100.9 F H 100.6 F H Pulse Rate 97 H 96 H 97 H Respiratory Rate 23 16 17 Blood Pressure 126/60 124/61 140/61 Pulse Oximetry 95 100 100 02/05/18 16:47 02/05/18 17:00 02/05/18 17:02 Temperature 100.6 F H 100.4 F H 100.4 F H Pulse Rate 92 H 111 H 104 H Respiratory Rate 18 28 H 29 H Blood Pressure 99/55 L 127/60 Pulse Oximetry 99 98 99 02/05/18 17:17 02/05/18 17:32 02/05/18 17:47 Temperature 100.4 F H 100.2 F H 100.4 F H Pulse Rate 99 H 100 H 106 H Respiratory Rate 18 16 23 Blood Pressure 127/62 124/59 L 138/81 Pulse Oximetry 02/05/18 18:00 02/05/18 18:02 02/05/18 18:17 Temperature 100.2 F H 100.2 F H 100.2 F H Pulse Rate 107 H 102 H 99 H Respiratory Rate 25 H 19 19 Blood Pressure 137/63 136/70 Pulse Oximetry 02/05/18 18:32 02/05/18 18:47 02/05/18 19:00 Temperature 100.2 F H 100.2 F H 100.2 F H Pulse Rate 92 H 84 85 Respiratory Rate 19 16 17 Blood Pressure 147/71 H 122/70 Pulse Oximetry 100 100 02/05/18 19:02 02/05/18 19:17 02/05/18 19:32 Temperature 100.2 F H 100.2 F H 100.2 F H Pulse Rate 85 86 85 Respiratory Rate 17 15 26 H Blood Pressure 116/78 115/60 123/59 L Pulse Oximetry 100 100 100 02/05/18 19:47 02/05/18 20:00 02/05/18 20:02 Temperature 100.2 F H 100.0 F H 100.0 F H Pulse Rate 87 89 86 Respiratory Rate 21 20 18 Blood Pressure 120/64 125/61 Pulse Oximetry 100 100 100 02/05/18 20:17 02/05/18 20:32 02/05/18 20:47 Temperature 100.0 F H 99.7 F H 99.1 F Pulse Rate 81 85 93 H Respiratory Rate 21 18 33 H Blood Pressure 136/63 130/75 133/59 L Pulse Oximetry 100 100 92 L 02/05/18 20:50 02/05/18 21:00 02/05/18 21:02 Temperature 99.5 F 99.7 F H Pulse Rate 87 85 Respiratory Rate 25 H 18 Blood Pressure 129/59 L Pulse Oximetry 100 99 98 02/05/18 21:17 02/05/18 21:32 02/05/18 21:47 Temperature 99.5 F 99.1 F 99.1 F Pulse Rate 88 87 87 Respiratory Rate 17 17 19 Blood Pressure 136/63 129/69 129/68 Pulse Oximetry 99 98 98 02/05/18 22:00 02/05/18 22:02 02/05/18 22:17 Temperature 99.0 F 99.0 F 99.1 F Pulse Rate 90 87 85 Respiratory Rate 18 19 19 Blood Pressure 132/60 128/61 Pulse Oximetry 98 98 97 02/05/18 22:32 02/05/18 22:47 02/05/18 23:00 Temperature 99.1 F 99.1 F 99.3 F Pulse Rate 81 107 H 99 H Respiratory Rate 19 27 H 30 H Blood Pressure 117/57 L 131/69 Pulse Oximetry 96 100 100 02/05/18 23:02 02/05/18 23:17 02/05/18 23:32 Temperature 99.3 F 99.5 F 99.0 F Pulse Rate 93 H 88 94 H Respiratory Rate 31 H 20 31 H Blood Pressure 144/60 H 129/70 134/65 Pulse Oximetry 99 99 92 L 02/05/18 23:47 02/06/18 00:00 02/06/18 00:02 Temperature 98 F Pulse Rate 90 103 H 103 H Respiratory Rate 19 25 H 28 H Blood Pressure 128/66 151/80 H Pulse Oximetry 98 95 94 L 02/06/18 00:17 02/06/18 00:32 02/06/18 00:47 Temperature Pulse Rate 94 H 104 H 94 H Respiratory Rate 21 23 20 Blood Pressure 159/73 H 145/74 H 126/60 Pulse Oximetry 99 98 98 02/06/18 01:00 02/06/18 01:02 02/06/18 01:17 Temperature Pulse Rate 101 H 95 H 93 H Respiratory Rate 21 17 19 Blood Pressure 140/63 131/61 Pulse Oximetry 99 99 98 02/06/18 01:32 02/06/18 01:47 02/06/18 02:00 Temperature Pulse Rate 91 H 91 H 92 H Respiratory Rate 21 25 H 20 Blood Pressure 136/66 109/62 Pulse Oximetry 97 98 97 02/06/18 02:02 02/06/18 02:17 02/06/18 02:32 Temperature Pulse Rate 90 91 H 96 H Respiratory Rate 26 H 24 26 H Blood Pressure 122/61 117/68 134/69 Pulse Oximetry 97 97 98 02/06/18 02:47 02/06/18 03:00 02/06/18 03:02 Temperature Pulse Rate 95 H 89 89 Respiratory Rate 20 19 20 Blood Pressure 142/68 H 139/65 Pulse Oximetry 98 97 98 02/06/18 03:17 02/06/18 03:32 02/06/18 03:47 Temperature Pulse Rate 92 H 84 81 Respiratory Rate 23 24 17 Blood Pressure 122/64 132/63 137/63 Pulse Oximetry 98 97 96 02/06/18 04:00 02/06/18 04:02 02/06/18 04:17 Temperature 97.6 F Pulse Rate 87 92 H 89 Respiratory Rate 18 21 21 Blood Pressure 141/67 H 126/63 Pulse Oximetry 96 96 97 02/06/18 04:32 02/06/18 04:47 02/06/18 05:00 Temperature Pulse Rate 96 H 85 87 Respiratory Rate 29 H 22 29 H Blood Pressure 122/63 120/61 Pulse Oximetry 97 96 98 02/06/18 05:17 02/06/18 05:32 02/06/18 05:47 Temperature Pulse Rate 87 82 83 Respiratory Rate 19 33 H 27 H Blood Pressure 129/57 L 145/68 H 147/63 H Pulse Oximetry 97 97 97 02/06/18 06:00 02/06/18 06:02 02/06/18 08:05 Temperature Pulse Rate 85 90 Respiratory Rate 21 30 H Blood Pressure 151/69 H Pulse Oximetry 99 99 98 Intake & Output 02/05/18 02/06/18 02/06/18 18:59 06:59 18:59 Intake Total 590 / 590 Output Total 1200 / 1200 450 / 450 Balance -610 / -610 -450 / -450 Weight 86.5 kg Intake: IV 350 / 350 Azithromycin Inj 500 MG In NS 250 / 250 Inj 250 ML @ 250 mls/hr IV.SIG Q24H [facility]NA Rx#:[id number] INVanz Inj 1,000 MG In NS Inj 100 / 100 100 ML @ 200 mls/hr IV.SIG Q24H T[facility]YANA Rx#:[id number] Oral 240 / 240 Output: Urine Amount (Catheter) 1200 / 1200 450 / 450 Indwelling Temp Sensing 1200 / 1200 450 / 450 Catheter Other: Date of Last Bowel Movement 01/31/18 01/31/18 # Incontinent Bowel Movements 1 Result Diagrams: 02/06/18 04:23 02/06/18 04:23 Objective Remarks: General: Elderly woman alert awake, breathing comfortably HEENT: On nasal cannula airway widely patent Cardiovascular: Irregular irregular rhythm, rate 85 - neck veins less distended Respiratory: Air entry equal bilaterally now clear to auscultation. No wheezes Abdomen: Soft, nontender, nondistended, few bowel sounds, no guarding Extremities: Trace edema lower extremities Neuro: Alert awake oriented to person and place. Follows commands no focal deficits Assessment and Plan - Problem List (1) Acute hypoxemic respiratory failure Code(s): J96.01 - Acute respiratory failure with hypoxia Status: Acute (2) Pulmonary edema cardiac cause Code(s): I50.1 - Left ventricular failure, unspecified Status: Acute (3) Acute myocardial infarction Code(s): I21.9 - Acute myocardial infarction, unspecified Status: Acute (4) Acute kidney injury Code(s): N17.9 - Acute kidney failure, unspecified Status: Acute (5) Type 2 diabetes mellitus Code(s): E11.9 - Type 2 diabetes mellitus without complications Status: Chronic - Assessment and Plan Plan: Plan: Acute hypoxemic respiratory failure-resolved -Extubated yesterday tolerating very well -Diuretics as tolerated, follow prerenal pattern -Minimize sedation -DuoNeb every hours as needed, EzPAP Acute myocardial infarction -Continue antiplatelet therapy (ASA, Plavix) -Status post PCI with LAD stent (LUZMARIA) 02/03/[address] Peralta -Give additional 40 mg Lasix x1 given 02/04/2018, 20 mg IV 02/05 -Aldactone 25 twice daily, increase to 50 mg twice daily -Discussed with Dr. Peralta Ischemic cardiomyopathy -Continue beta-blockers metoprolol 25 mg p.o. 3 times daily -EF 20%, repeat echo today to evaluate for atrial clot and EF -Diuresis as above -Watch closely for arrhythmias Atrial fibrillation -Currently rate controlled -Received 1 dose of digoxin last 2 days -Continue metoprolol 25 three times daily -Keep potassium more than 4, keep magnesium more than 2 -Currently on DAPT and subcu heparin, if A. fib persists may need full anticoagulation -Discussed with Dr. Peralta Acute kidney injury -Avoid nephrotoxins -IV Lasix as needed, increase Aldactone to 50 twice daily Diabetes mellitus, poorly controlled -Levemir twice daily, Medium correction sliding scale insulin protocol -Diet per speech pathology recommendations Prophylaxis -Heparin sq -Pepcid -PT/OT Overall impression: Level 2 Consult hospitalist to assume care in a.m. Code Status: Full
[2018-02-06] MEDS: Spironolactone 25 MG Tablet PO SCH ×2 (11:30→21:48)
[2018-02-06] MEDS: Chlorhexidine 0.12% Oral Kit 15 ML UDC OROPHARYNG SCH ×2 (11:30→21:46)
--- NOTE | 2018-02-06 11:43 | P.PNNP ---
Subjective Interval history: Patient was seen, no distress. Patient was extubated yesterday. Patient is alert awake oriented to person and place. Renal function has improved. <Jesse Avila - Last Filed: 02/06/18 11:38> Physical Exam Vital signs: Vital Signs 02/05/18 14:02 02/05/18 14:17 02/05/18 14:32 Temperature 100.9 F H 101.1 F H Pulse Rate 95 H 93 H Respiratory Rate 29 H 20 Blood Pressure 106/62 120/59 L 129/62 Pulse Oximetry 98 99 02/05/18 14:47 02/05/18 15:00 02/05/18 15:02 Temperature 101.1 F H 100.9 F H 100.9 F H Pulse Rate 90 85 91 H Respiratory Rate 16 19 19 Blood Pressure 121/63 116/59 L Pulse Oximetry 100 100 100 02/05/18 15:17 02/05/18 15:32 02/05/18 15:47 Temperature 100.9 F H 100.9 F H 100.9 F H Pulse Rate 89 92 H 102 H Respiratory Rate 18 17 28 H Blood Pressure 111/58 L 113/60 131/72 Pulse Oximetry 100 100 94 L 02/05/18 16:00 02/05/18 16:02 02/05/18 16:17 Temperature 100.9 F H 100.9 F H 100.9 F H Pulse Rate 100 H 97 H 96 H Respiratory Rate 19 23 16 Blood Pressure 126/60 124/61 Pulse Oximetry 100 95 100 02/05/18 16:32 02/05/18 16:47 02/05/18 17:00 Temperature 100.6 F H 100.6 F H 100.4 F H Pulse Rate 97 H 92 H 111 H Respiratory Rate 17 18 28 H Blood Pressure 140/61 99/55 L Pulse Oximetry 100 99 98 02/05/18 17:02 02/05/18 17:17 02/05/18 17:32 Temperature 100.4 F H 100.4 F H 100.2 F H Pulse Rate 104 H 99 H 100 H Respiratory Rate 29 H 18 16 Blood Pressure 127/60 127/62 124/59 L Pulse Oximetry 99 02/05/18 17:47 02/05/18 18:00 02/05/18 18:02 Temperature 100.4 F H 100.2 F H 100.2 F H Pulse Rate 106 H 107 H 102 H Respiratory Rate 23 25 H 19 Blood Pressure 138/81 137/63 Pulse Oximetry 02/05/18 18:17 02/05/18 18:32 02/05/18 18:47 Temperature 100.2 F H 100.2 F H 100.2 F H Pulse Rate 99 H 92 H 84 Respiratory Rate 19 19 16 Blood Pressure 136/70 147/71 H 122/70 Pulse Oximetry 100 02/05/18 19:00 02/05/18 19:02 02/05/18 19:17 Temperature 100.2 F H 100.2 F H 100.2 F H Pulse Rate 85 85 86 Respiratory Rate 17 17 15 Blood Pressure 116/78 115/60 Pulse Oximetry 100 100 100 02/05/18 19:32 02/05/18 19:47 02/05/18 20:00 Temperature 100.2 F H 100.2 F H 100.0 F H Pulse Rate 85 87 89 Respiratory Rate 26 H 21 20 Blood Pressure 123/59 L 120/64 Pulse Oximetry 100 100 100 02/05/18 20:02 02/05/18 20:17 02/05/18 20:32 Temperature 100.0 F H 100.0 F H 99.7 F H Pulse Rate 86 81 85 Respiratory Rate 18 21 18 Blood Pressure 125/61 136/63 130/75 Pulse Oximetry 100 100 100 02/05/18 20:47 02/05/18 20:50 02/05/18 21:00 Temperature 99.1 F 99.5 F Pulse Rate 93 H 87 Respiratory Rate 33 H 25 H Blood Pressure 133/59 L Pulse Oximetry 92 L 100 99 02/05/18 21:02 02/05/18 21:17 02/05/18 21:32 Temperature 99.7 F H 99.5 F 99.1 F Pulse Rate 85 88 87 Respiratory Rate 18 17 17 Blood Pressure 129/59 L 136/63 129/69 Pulse Oximetry 98 99 98 02/05/18 21:47 02/05/18 22:00 02/05/18 22:02 Temperature 99.1 F 99.0 F 99.0 F Pulse Rate 87 90 87 Respiratory Rate 19 18 19 Blood Pressure 129/68 132/60 Pulse Oximetry 98 98 98 02/05/18 22:17 02/05/18 22:32 02/05/18 22:47 Temperature 99.1 F 99.1 F 99.1 F Pulse Rate 85 81 107 H Respiratory Rate 19 19 27 H Blood Pressure 128/61 117/57 L 131/69 Pulse Oximetry 97 96 100 02/05/18 23:00 02/05/18 23:02 02/05/18 23:17 Temperature 99.3 F 99.3 F 99.5 F Pulse Rate 99 H 93 H 88 Respiratory Rate 30 H 31 H 20 Blood Pressure 144/60 H 129/70 Pulse Oximetry 100 99 99 02/05/18 23:32 02/05/18 23:47 02/06/18 00:00 Temperature 99.0 F 98 F Pulse Rate 94 H 90 103 H Respiratory Rate 31 H 19 25 H Blood Pressure 134/65 128/66 Pulse Oximetry 92 L 98 95 02/06/18 00:02 02/06/18 00:17 02/06/18 00:32 Temperature Pulse Rate 103 H 94 H 104 H Respiratory Rate 28 H 21 23 Blood Pressure 151/80 H 159/73 H 145/74 H Pulse Oximetry 94 L 99 98 02/06/18 00:47 02/06/18 01:00 02/06/18 01:02 Temperature Pulse Rate 94 H 101 H 95 H Respiratory Rate 20 21 17 Blood Pressure 126/60 140/63 Pulse Oximetry 98 99 99 02/06/18 01:17 02/06/18 01:32 02/06/18 01:47 Temperature Pulse Rate 93 H 91 H 91 H Respiratory Rate 19 21 25 H Blood Pressure 131/61 136/66 109/62 Pulse Oximetry 98 97 98 02/06/18 02:00 02/06/18 02:02 02/06/18 02:17 Temperature Pulse Rate 92 H 90 91 H Respiratory Rate 20 26 H 24 Blood Pressure 122/61 117/68 Pulse Oximetry 97 97 97 02/06/18 02:32 02/06/18 02:47 02/06/18 03:00 Temperature Pulse Rate 96 H 95 H 89 Respiratory Rate 26 H 20 19 Blood Pressure 134/69 142/68 H Pulse Oximetry 98 98 97 02/06/18 03:02 02/06/18 03:17 02/06/18 03:32 Temperature Pulse Rate 89 92 H 84 Respiratory Rate 20 23 24 Blood Pressure 139/65 122/64 132/63 Pulse Oximetry 98 98 97 02/06/18 03:47 11/07/18 04:00 02/06/18 04:02 Temperature 97.6 F Pulse Rate 81 87 92 H Respiratory Rate 17 18 21 Blood Pressure 137/63 141/67 H Pulse Oximetry 96 96 96 02/06/18 04:17 02/06/18 04:32 02/06/18 04:47 Temperature Pulse Rate 89 96 H 85 Respiratory Rate 21 29 H 22 Blood Pressure 126/63 122/63 120/61 Pulse Oximetry 97 97 96 02/06/18 05:00 02/06/18 05:17 02/06/18 05:32 Temperature Pulse Rate 87 87 82 Respiratory Rate 29 H 19 33 H Blood Pressure 129/57 L 145/68 H Pulse Oximetry 98 97 97 02/06/18 05:47 02/06/18 06:00 02/06/18 06:02 Temperature Pulse Rate 83 85 90 Respiratory Rate 27 H 21 30 H Blood Pressure 147/63 H 151/69 H Pulse Oximetry 97 99 99 02/06/18 08:05 02/06/18 09:25 Temperature Pulse Rate Respiratory Rate Blood Pressure Pulse Oximetry 98 98 Intake & Output 02/05/18 02/06/18 02/06/18 18:59 06:59 18:59 Intake Total 590 / 590 Output Total 1200 / 1200 450 / 450 Balance -610 / -610 -450 / -450 Weight 86.5 kg Intake: IV 350 / 350 Azithromycin Inj 500 MG In NS 250 / 250 Inj 250 ML @ 250 mls/hr IV.SIG Q24H [facility] Rx#:[id number] INVanz Inj 1,000 MG In NS Inj 100 / 100 100 ML @ 200 mls/hr IV.SIG Q24H [facility]NA Rx#:[id number] Oral 240 / 240 Output: Urine Amount (Catheter) 1200 / 1200 450 / 450 Indwelling Temp Sensing 1200 / 1200 450 / 450 Catheter Other: Date of Last Bowel Movement 01/31/18 01/31/18 02/06/18 # Incontinent Bowel Movements 1 - Constitutional no acute distress - Routine HEENT Exam Head: Present: normocephalic Eye: Present: EOMI, PERRL ENT: Present: mucous membranes moist - Routine Neck Exam Present: trachea midline. Absent: tracheal deviation - Routine Respiratory Exam Absent: accessory muscle use, patient mechanically ventilated, respiratory distress - Routine Cardiovascular Exam Present: irregular rhythm, irregularly irregular. Absent: tachycardia - Routine Abdominal Exam Present: soft. Absent: tenderness - Routine Extremities Exam Absent: cyanosis - Routine Neurological Exam Present: alert, oriented X3 - Detailed Neurological Exam: Coma Scale Eye Opening: Spontaneous Verbal Response: Oriented - Routine Psychiatric Exam Present: normal affect - Urinary Catheter Management Indwelling Temp Sensing Catheter Cath placed during this visit: no Urethral indwelling: Yes Reason for continuing: Hourly intake/output <Jesse Avila - Last Filed: 02/06/18 11:38> Vital signs: Vital Signs 02/05/18 17:17 02/05/18 17:32 02/05/18 17:47 Temperature 100.4 F H 100.2 F H 100.4 F H Pulse Rate 99 H 100 H 106 H Respiratory Rate 18 16 23 Blood Pressure 127/62 124/59 L 138/81 Pulse Oximetry 02/05/18 18:00 02/05/18 18:02 02/05/18 18:17 Temperature 100.2 F H 100.2 F H 100.2 F H Pulse Rate 107 H 102 H 99 H Respiratory Rate 25 H 19 19 Blood Pressure 137/63 136/70 Pulse Oximetry 02/05/18 18:32 02/05/18 18:47 02/05/18 19:00 Temperature 100.2 F H 100.2 F H 100.2 F H Pulse Rate 92 H 84 85 Respiratory Rate 19 16 17 Blood Pressure 147/71 H 122/70 Pulse Oximetry 100 100 02/05/18 19:02 02/05/18 19:17 02/05/18 19:32 Temperature 100.2 F H 100.2 F H 100.2 F H Pulse Rate 85 86 85 Respiratory Rate 17 15 26 H Blood Pressure 116/78 115/60 123/59 L Pulse Oximetry 100 100 100 02/05/18 19:47 02/05/18 20:00 02/05/18 20:02 Temperature 100.2 F H 100.0 F H 100.0 F H Pulse Rate 87 89 86 Respiratory Rate 21 20 18 Blood Pressure 120/64 125/61 Pulse Oximetry 100 100 100 02/05/18 20:17 02/05/18 20:32 02/05/18 20:47 Temperature 100.0 F H 99.7 F H 99.1 F Pulse Rate 81 85 93 H Respiratory Rate 21 18 33 H Blood Pressure 136/63 130/75 133/59 L Pulse Oximetry 100 100 92 L 02/05/18 20:50 02/05/18 21:00 02/05/18 21:02 Temperature 99.5 F 99.7 F H Pulse Rate 87 85 Respiratory Rate 25 H 18 Blood Pressure 129/59 L Pulse Oximetry 100 99 98 02/05/18 21:17 02/05/18 21:32 02/05/18 21:47 Temperature 99.5 F 99.1 F 99.1 F Pulse Rate 88 87 87 Respiratory Rate 17 17 19 Blood Pressure 136/63 129/69 129/68 Pulse Oximetry 99 98 98 02/05/18 22:00 02/05/18 22:02 02/05/18 22:17 Temperature 99.0 F 99.0 F 99.1 F Pulse Rate 90 87 85 Respiratory Rate 18 19 19 Blood Pressure 132/60 128/61 Pulse Oximetry 98 98 97 02/05/18 22:32 02/05/18 22:47 02/05/18 23:00 Temperature 99.1 F 99.1 F 99.3 F Pulse Rate 81 107 H 99 H Respiratory Rate 19 27 H 30 H Blood Pressure 117/57 L 131/69 Pulse Oximetry 96 100 100 02/05/18 23:02 02/05/18 23:17 02/05/18 23:32 Temperature 99.3 F 99.5 F 99.0 F Pulse Rate 93 H 88 94 H Respiratory Rate 31 H 20 31 H Blood Pressure 144/60 H 129/70 134/65 Pulse Oximetry 99 99 92 L 02/05/18 23:47 02/06/18 00:00 02/06/18 00:02 Temperature 98 F Pulse Rate 90 103 H 103 H Respiratory Rate 19 25 H 28 H Blood Pressure 128/66 151/80 H Pulse Oximetry 98 95 94 L 02/06/18 00:17 02/06/18 00:32 02/06/18 00:47 Temperature Pulse Rate 94 H 104 H 94 H Respiratory Rate 21 23 20 Blood Pressure 159/73 H 145/74 H 126/60 Pulse Oximetry 99 98 98 02/06/18 01:00 02/06/18 01:02 02/06/18 01:17 Temperature Pulse Rate 101 H 95 H 93 H Respiratory Rate 21 17 19 Blood Pressure 140/63 131/61 Pulse Oximetry 99 99 98 02/06/18 01:32 02/06/18 01:47 02/06/18 02:00 Temperature Pulse Rate 91 H 91 H 92 H Respiratory Rate 21 25 H 20 Blood Pressure 136/66 109/62 Pulse Oximetry 97 98 97 02/06/18 02:02 02/06/18 02:17 02/06/18 02:32 Temperature Pulse Rate 90 91 H 96 H Respiratory Rate 26 H 24 26 H Blood Pressure 122/61 117/68 134/69 Pulse Oximetry 97 97 98 02/06/18 02:47 02/06/18 03:00 02/06/18 03:02 Temperature Pulse Rate 95 H 89 89 Respiratory Rate 20 19 20 Blood Pressure 142/68 H 139/65 Pulse Oximetry 98 97 98 02/06/18 03:17 02/06/18 03:32 02/06/18 03:47 Temperature Pulse Rate 92 H 84 81 Respiratory Rate 23 24 17 Blood Pressure 122/64 132/63 137/63 Pulse Oximetry 98 97 96 02/06/18 04:00 02/06/18 04:02 02/06/18 04:17 Temperature 97.6 F Pulse Rate 87 92 H 89 Respiratory Rate 18 21 21 Blood Pressure 141/67 H 126/63 Pulse Oximetry 96 96 97 02/06/18 04:32 02/06/18 04:47 02/06/18 05:00 Temperature Pulse Rate 96 H 85 87 Respiratory Rate 29 H 22 29 H Blood Pressure 122/63 120/61 Pulse Oximetry 97 96 98 02/06/18 05:17 02/06/18 05:32 02/06/18 05:47 Temperature Pulse Rate 87 82 83 Respiratory Rate 19 33 H 27 H Blood Pressure 129/57 L 145/68 H 147/63 H Pulse Oximetry 97 97 97 02/06/18 06:00 02/06/18 06:02 02/06/18 08:00 Temperature 98.8 F Pulse Rate 85 90 87 Respiratory Rate 21 30 H 16 Blood Pressure 151/69 H 132/60 Pulse Oximetry 99 99 97 02/06/18 08:05 02/06/18 09:00 02/06/18 09:25 Temperature Pulse Rate 84 Respiratory Rate 26 H Blood Pressure 131/62 Pulse Oximetry 98 98 02/06/18 10:00 02/06/18 11:00 02/06/18 12:00 Temperature Pulse Rate 79 93 H 87 Respiratory Rate 14 26 H 18 Blood Pressure 111/56 L 142/59 H 132/63 Pulse Oximetry 100 95 94 L 02/06/18 12:17 02/06/18 12:32 02/06/18 12:47 Temperature Pulse Rate 87 83 84 Respiratory Rate 20 20 16 Blood Pressure 126/58 L 121/56 L 147/67 H Pulse Oximetry 75 L 95 98 02/06/18 13:00 02/06/18 14:00 02/06/18 15:00 Temperature Pulse Rate 83 81 83 Respiratory Rate 15 25 H 32 H Blood Pressure 117/58 L Pulse Oximetry 97 98 100 02/06/18 16:00 Temperature Pulse Rate 82 Respiratory Rate 24 Blood Pressure Pulse Oximetry 99 Intake & Output 02/05/18 02/06/18 02/06/18 18:59 06:59 18:59 Intake Total 590 / 590 Output Total 1200 / 1200 450 / 450 Balance -610 / -610 -450 / -450 Weight 86.5 kg Intake: IV 350 / 350 Azithromycin Inj 500 MG In NS 250 / 250 Inj 250 ML @ 250 mls/hr IV.SIG Q24H [facility] Rx#:[id number] INVanz Inj 1,000 MG In NS Inj 100 / 100 100 ML @ 200 mls/hr IV.SIG Q24H [facility] Rx#:[id number] Oral 240 / 240 Output: Urine Amount (Catheter) 1200 / 1200 450 / 450 Indwelling Temp Sensing 1200 / 1200 450 / 450 Catheter Other: Date of Last Bowel Movement 01/31/18 01/31/18 02/06/18 # Incontinent Bowel Movements 1 - Urinary Catheter Management Indwelling Temp Sensing Catheter Cath placed during this visit: no <Ilia Pimentel - Last Filed: 02/06/18 17:11> Assessment and Plan - Assessment (1) Acute kidney injury Code(s): N17.9 - Acute kidney failure, unspecified Status: Acute Plan: Renal function has improved, no evidence of contrast nephropathy after cardiac cath on 02/03. Continue conservative management. Avoid nephrotoxic agents. Will sign off from a renal standpoint. (2) Type 2 diabetes mellitus Code(s): E11.9 - Type 2 diabetes mellitus without complications Status: Chronic Plan: insulin coverage to maintain blood glucose between 140 and 180. (3) Non-ST elevated myocardial infarction (non-STEMI) Code(s): I21.4 - Non-ST elevation (NSTEMI) myocardial infarction Status: Acute - Plan Cardiology on the case. Went into cardiogenic shock. Underwent cardiac cath and stent placement to LAD. <Jesse Avila - Last Filed: 02/06/18 11:38> - Assessment (1) Acute kidney injury Code(s): N17.9 - Acute kidney failure, unspecified Status: Acute (2) Type 2 diabetes mellitus Code(s): E11.9 - Type 2 diabetes mellitus without complications Status: Chronic (3) Non-ST elevated myocardial infarction (non-STEMI) Code(s): I21.4 - Non-ST elevation (NSTEMI) myocardial infarction Status: Acute - Attending Attestation patient was seen and examined. Agree with above assessment and plan. <Ilia Pimentel - Last Filed: 02/06/18 17:11>
--- NOTE | 2018-02-06 12:36 | P.PNPAL ---
Reason for Visit Reason for visit: a. To assist with evaluation and management of symptoms including: Confusion, dyspnea, constipation b. To assist medical decision maker(s) with: better understanding of current medical conditions; weighing benefits/burdens of medical treatment options; making medical treatment decisions. Subjective Subjective/Interval History: This is an 87-year-old female with a past medical history of diabetes, hypertension, rectal cancer in remission, anxiety, depression, coronary artery disease status post stent, former smoker who presented to the emergency department 01/31/2018 plane of chest pain, substernal, pressure, nonradiating, persistent, which resolved with aspirin and sublingual nitro given to her by EMS. She had taken a Xanax earlier to try and help her sleep. Her presenting troponin was 1.25 did she had been seen in the ED on 01/28 and had troponin levels of 0.11, 0.96, 1.08. She was diagnosed with a non-STEMI and seen by cardiology. Cardiac catheterization was held secondary to renal insufficiency. Nephrology consultation was requested for further evaluation. pt seen today to follow up on dyspnea post extubation, and update to [facility]. Stable overnight, flavia NC O2. CBC stable/unremarkable. Chemistry stable/ unremarkable. renal signed off. BUN 34, creat 1.[address] following, today noted some ss/sx cough/aspiration, diet downgraded to puree w honey thick liq. Nursing reports pt still mildly confused, though cooperative, not agitated. PT ordered. Seen in ISC room, dual visit with Lewis Cerda APRN. She is alert, smiling and pleasant. 2 neighbors visiting at bedside. She recognizes and interacts with them. She seems to have very poor insight into hospitalization, though she is oriented to family, hospital, her home in [place]. She tells me she is going to go home in a few days. She tells me they got her up with a walker but she was too weak and really needs a scooter. Not sure if this is accurate if PT has been in yet or not. ROS negative --denies dyspnea, denies GI complaints, denies chest pain. Denies any other sources of pain or discomfort. She does follow simple commands. For the most part she is pleasant and cooperative though again insight hospitalization is pretty limited to poor. Following exam call to granddaughter and healthcare surrogate Treva, provided medical update review of current clinical assessment, current treatments in place, medications in place, as well as review of all recent diagnostics, prognosis. Review with her plan of treatment going forward and possibility patient will be transferred out of ICU another day or 2 pending stability. All questions answered to the best of my ability. She continues to voice aggressive goals to continue whatever treatments available to help the patient towards her recovery. . Advance Directives Living Will: Copy in medical record Health Care Surrogate: Copy in medical record Health Care Surrogate Name and Number: Treva Arvizu Objective Vital Signs: Vital Signs 02/05/18 14:02 02/05/18 14:17 02/05/18 14:32 Temperature 100.9 F H 101.1 F H Pulse Rate 95 H 93 H Respiratory Rate 29 H 20 Blood Pressure 106/62 120/59 L 129/62 Pulse Oximetry 98 99 02/05/18 14:47 02/05/18 15:00 02/05/18 15:02 Temperature 101.1 F H 100.9 F H 100.9 F H Pulse Rate 90 85 91 H Respiratory Rate 16 19 19 Blood Pressure 121/63 116/59 L Pulse Oximetry 100 100 100 02/05/18 15:17 02/05/18 15:32 02/05/18 15:47 Temperature 100.9 F H 100.9 F H 100.9 F H Pulse Rate 89 92 H 102 H Respiratory Rate 18 17 28 H Blood Pressure 111/58 L 113/60 131/72 Pulse Oximetry 100 100 94 L 02/05/18 16:00 02/05/18 16:02 02/05/18 16:17 Temperature 100.9 F H 100.9 F H 100.9 F H Pulse Rate 100 H 97 H 96 H Respiratory Rate 19 23 16 Blood Pressure 126/60 124/61 Pulse Oximetry 100 95 100 02/05/18 16:32 02/05/18 16:47 02/05/18 17:00 Temperature 100.6 F H 100.6 F H 100.4 F H Pulse Rate 97 H 92 H 111 H Respiratory Rate 17 18 28 H Blood Pressure 140/61 99/55 L Pulse Oximetry 100 99 98 02/05/18 17:02 02/05/18 17:17 02/05/18 17:32 Temperature 100.4 F H 100.4 F H 100.2 F H Pulse Rate 104 H 99 H 100 H Respiratory Rate 29 H 18 16 Blood Pressure 127/60 127/62 124/59 L Pulse Oximetry 99 02/05/18 17:47 02/05/18 18:00 02/05/18 18:02 Temperature 100.4 F H 100.2 F H 100.2 F H Pulse Rate 106 H 107 H 102 H Respiratory Rate 23 25 H 19 Blood Pressure 138/81 137/63 Pulse Oximetry 02/05/18 18:17 02/05/18 18:32 02/05/18 18:47 Temperature 100.2 F H 100.2 F H 100.2 F H Pulse Rate 99 H 92 H 84 Respiratory Rate 19 19 16 Blood Pressure 136/70 147/71 H 122/70 Pulse Oximetry 100 02/05/18 19:00 02/05/18 19:02 02/05/18 19:17 Temperature 100.2 F H 100.2 F H 100.2 F H Pulse Rate 85 85 86 Respiratory Rate 17 17 15 Blood Pressure 116/78 115/60 Pulse Oximetry 100 100 100 02/05/18 19:32 02/05/18 19:47 02/05/18 20:00 Temperature 100.2 F H 100.2 F H 100.0 F H Pulse Rate 85 87 89 Respiratory Rate 26 H 21 20 Blood Pressure 123/59 L 120/64 Pulse Oximetry 100 100 100 02/05/18 20:02 02/05/18 20:17 02/05/18 20:32 Temperature 100.0 F H 100.0 F H 99.7 F H Pulse Rate 86 81 85 Respiratory Rate 18 21 18 Blood Pressure 125/61 136/63 130/75 Pulse Oximetry 100 100 100 02/05/18 20:47 02/05/18 20:50 02/05/18 21:00 Temperature 99.1 F 99.5 F Pulse Rate 93 H 87 Respiratory Rate 33 H 25 H Blood Pressure 133/59 L Pulse Oximetry 92 L 100 99 02/05/18 21:02 02/05/18 21:17 02/05/18 21:32 Temperature 99.7 F H 99.5 F 99.1 F Pulse Rate 85 88 87 Respiratory Rate 18 17 17 Blood Pressure 129/59 L 136/63 129/69 Pulse Oximetry 98 99 98 02/05/18 21:47 02/05/18 22:00 02/05/18 22:02 Temperature 99.1 F 99.0 F 99.0 F Pulse Rate 87 90 87 Respiratory Rate 19 18 19 Blood Pressure 129/68 132/60 Pulse Oximetry 98 98 98 02/05/18 22:17 02/05/18 22:32 02/05/18 22:47 Temperature 99.1 F 99.1 F 99.1 F Pulse Rate 85 81 107 H Respiratory Rate 19 19 27 H Blood Pressure 128/61 117/57 L 131/69 Pulse Oximetry 97 96 100 02/05/18 23:00 02/05/18 23:02 02/05/18 23:17 Temperature 99.3 F 99.3 F 99.5 F Pulse Rate 99 H 93 H 88 Respiratory Rate 30 H 31 H 20 Blood Pressure 144/60 H 129/70 Pulse Oximetry 100 99 99 02/05/18 23:32 02/05/18 23:47 02/06/18 00:00 Temperature 99.0 F 98 F Pulse Rate 94 H 90 103 H Respiratory Rate 31 H 19 25 H Blood Pressure 134/65 128/66 Pulse Oximetry 92 L 98 95 02/06/18 00:02 02/06/18 00:17 02/06/18 00:32 Temperature Pulse Rate 103 H 94 H 104 H Respiratory Rate 28 H 21 23 Blood Pressure 151/80 H 159/73 H 145/74 H Pulse Oximetry 94 L 99 98 02/06/18 00:47 02/06/18 01:00 02/06/18 01:02 Temperature Pulse Rate 94 H 101 H 95 H Respiratory Rate 20 21 17 Blood Pressure 126/60 140/63 Pulse Oximetry 98 99 99 02/06/18 01:17 02/06/18 01:32 02/06/18 01:47 Temperature Pulse Rate 93 H 91 H 91 H Respiratory Rate 19 21 25 H Blood Pressure 131/61 136/66 109/62 Pulse Oximetry 98 97 98 02/06/18 02:00 02/06/18 02:02 02/06/18 02:17 Temperature Pulse Rate 92 H 90 91 H Respiratory Rate 20 26 H 24 Blood Pressure 122/61 117/68 Pulse Oximetry 97 97 97 02/06/18 02:32 02/06/18 02:47 02/06/18 03:00 Temperature Pulse Rate 96 H 95 H 89 Respiratory Rate 26 H 20 19 Blood Pressure 134/69 142/68 H Pulse Oximetry 98 98 97 02/06/18 03:02 02/06/18 03:17 02/06/18 03:32 Temperature Pulse Rate 89 92 H 84 Respiratory Rate 20 23 24 Blood Pressure 139/65 122/64 132/63 Pulse Oximetry 98 98 97 02/06/18 03:47 02/06/18 04:00 02/06/18 04:02 Temperature 97.6 F Pulse Rate 81 87 92 H Respiratory Rate 17 18 21 Blood Pressure 137/63 141/67 H Pulse Oximetry 96 96 96 02/06/18 04:17 02/06/18 04:32 02/06/18 04:47 Temperature Pulse Rate 89 96 H 85 Respiratory Rate 21 29 H 22 Blood Pressure 126/63 122/63 120/61 Pulse Oximetry 97 97 96 02/06/18 05:00 02/06/18 05:17 02/06/18 05:32 Temperature Pulse Rate 87 87 82 Respiratory Rate 29 H 19 33 H Blood Pressure 129/57 L 145/68 H Pulse Oximetry 98 97 97 02/06/18 05:47 02/06/18 06:00 02/06/18 06:02 Temperature Pulse Rate 83 85 90 Respiratory Rate 27 H 21 30 H Blood Pressure 147/63 H 151/69 H Pulse Oximetry 97 99 99 02/06/18 08:05 02/06/18 09:25 Temperature Pulse Rate Respiratory Rate Blood Pressure Pulse Oximetry 98 98 Intake & Output 02/05/18 02/06/18 02/06/18 18:59 06:59 18:59 Intake Total 590 / 590 Output Total 1200 / 1200 450 / 450 Balance -610 / -610 -450 / -450 Weight 86.5 kg Intake: IV 350 / 350 Azithromycin Inj 500 MG In NS 250 / 250 Inj 250 ML @ 250 mls/hr IV.SIG Q24H TATYANA Rx#:[id number] INVanz Inj 1,000 MG In NS Inj 100 / 100 100 ML @ 200 mls/hr IV.SIG Q24H TATYANA Rx#:[id number] Oral 240 / 240 Output: Urine Amount (Catheter) 1200 / 1200 450 / 450 Indwelling Temp Sensing 1200 / 1200 450 / 450 Catheter Other: Date of Last Bowel Movement 01/31/18 01/31/18 02/06/18 # Incontinent Bowel Movements 1 Physical Exam: CONSTITUTIONAL/GENERAL: This is an adequately nourished patient, lying in bed, awake, alert, confused. TUBES/LINES/DRAINS: PIV x3 NECK: Trachea midline. Supple, nontender. No palpable thyroid enlargement or nodularity. CARDIOVASCULAR: Irregular rhythm, mildly tachycardic rate with no rub murmur or gallop. Mild JVD. Peripheral pulses symmetric. RESPIRATORY/CHEST: Coarse breath sounds throughout all lung howell with scattered rhonchi. GASTROINTESTINAL: Abdomen soft, non-tender, nondistended. No hepato-splenomegaly , or palpable masses. No guarding. Bowel sounds present. GENITOURINARY: Without palpable bladder distension. MUSCULOSKELETAL: Extremities without clubbing or cyanosis, trace dependent edema. No joint tenderness or effusion noted. No calf tenderness. No mottling or clubbing. NEUROLOGICAL: Alert, confused, oriented to self, moves all extremities to command. PSYCHIATRIC: Anxious, confused. . Diagnostic Tests Laboratory: Laboratory Results - last 72 hr 01/31/18 02/02/18 02/02/18 11:01 08:36 09:00 WBC RBC Hgb Hct MCV MCH MCHC RDW Plt Count MPV Neut % (Auto) Lymph % (Auto) [place] % (Auto) Eos % (Auto) Baso % (Auto) Neut # (Auto) Lymph # (Auto) [place] # (Auto) Eos # (Auto) Baso # (Auto) WBC Differential Differential Comment Puncture Site Right radial Patient Temperature 98.6 O2 Saturation 89 L* ABG pH 7.25 L* ABG pCO2 49 H ABG pO2 68 ABG HCO3 21 L ABG O2 Content 15.9 ABG Base Excess -5.4 L ABG Methemoglobin 1.1 [place] Test Present Hemoglobin 12.7 Carboxyhemoglobin 1.3 O2 Delivery Device Vent Liter Flow Vent Setting See comments Inspired O2 100 Critical Value Yes Sodium Potassium Chloride Carbon Dioxide Anion Gap BUN Creatinine Estimated GFR POC Glucose Random Glucose Hemoglobin A1c 7.8 H Lactic Acid Calcium Magnesium Total Bilirubin AST ALT Alkaline Phosphatase Total Protein Albumin Urine Color Yellow Urine Clarity Cloudy H Urine pH 5.0 Ur Specific [place] 1.014 Urine Protein 30 H Urine Glucose (UA) Negative Urine Ketones 20 Urine Occult Blood Small H Urine Nitrate Positive H Urine Bilirubin Negative Urine Urobilinogen Less than 2 Ur Leukocyte Esterase Large H Urine RBC 17 H Urine WBC Urine WBC Clumps Many H Amorphous Sediment Rare H Urine Bacteria Many H Urine Mucus Few H Micro UA Comment Culture indicated Urine Culture Comments Culture indicated 02/03/18 02/03/18 02/03/18 12:06 12:20 13:09 WBC RBC Hgb Hct MCV MCH MCHC RDW Plt Count MPV Neut % (Auto) Lymph % (Auto) [place] % (Auto) Eos % (Auto) Baso % (Auto) Neut # (Auto) Lymph # (Auto) [place] # (Auto) Eos # (Auto) Baso # (Auto) WBC Differential Differential Comment Puncture Site Patient Temperature O2 Saturation ABG pH ABG pCO2 ABG pO2 ABG HCO3 ABG O2 Content ABG Base Excess ABG Methemoglobin [place] Test Hemoglobin Carboxyhemoglobin O2 Delivery Device Liter Flow Vent Setting Inspired O2 Critical Value Sodium Potassium Chloride Carbon Dioxide Anion Gap BUN Creatinine Estimated GFR POC Glucose 174 H 119 H 173 H Random Glucose Hemoglobin A1c Lactic Acid Calcium Magnesium Total Bilirubin AST ALT Alkaline Phosphatase Total Protein Albumin Urine Color Urine Clarity Urine pH Ur Specific [place] Urine Protein Urine Glucose (UA) Urine Ketones Urine Occult Blood Urine Nitrate Urine Bilirubin Urine Urobilinogen Ur Leukocyte Esterase Urine RBC Urine WBC Urine WBC Clumps Amorphous Sediment Urine Bacteria Urine Mucus Micro UA Comment Urine Culture Comments 02/03/18 02/03/18 02/03/18 14:27 15:14 15:36 WBC RBC Hgb Hct MCV MCH MCHC RDW Plt Count MPV Neut % (Auto) Lymph % (Auto) [place] % (Auto) Eos % (Auto) Baso % (Auto) Neut # (Auto) Lymph # (Auto) [place] # (Auto) Eos # (Auto) Baso # (Auto) WBC Differential Differential Comment Puncture Site Patient Temperature O2 Saturation ABG pH ABG pCO2 ABG pO2 ABG HCO3 ABG O2 Content ABG Base Excess ABG Methemoglobin [place] Test Hemoglobin Carboxyhemoglobin O2 Delivery Device Liter Flow Vent Setting Inspired O2 Critical Value Sodium Potassium Chloride Carbon Dioxide Anion Gap BUN Creatinine Estimated GFR POC Glucose 166 H 174 H 158 H Random Glucose Hemoglobin A1c Lactic Acid Calcium Magnesium Total Bilirubin AST ALT Alkaline Phosphatase Total Protein Albumin Urine Color Urine Clarity Urine pH Ur Specific [place] Urine Protein Urine Glucose (UA) Urine Ketones Urine Occult Blood Urine Nitrate Urine Bilirubin Urine Urobilinogen Ur Leukocyte Esterase Urine RBC Urine WBC Urine WBC Clumps Amorphous Sediment Urine Bacteria Urine Mucus Micro UA Comment Urine Culture Comments 02/03/18 02/03/18 02/03/18 18:37 18:56 19:32 WBC RBC Hgb Hct MCV MCH MCHC RDW Plt Count MPV Neut % (Auto) Lymph % (Auto) [place] % (Auto) Eos % (Auto) Baso % (Auto) Neut # (Auto) Lymph # (Auto) [place] # (Auto) Eos # (Auto) Baso # (Auto) WBC Differential Differential Comment Puncture Site Patient Temperature O2 Saturation ABG pH ABG pCO2 ABG pO2 ABG HCO3 ABG O2 Content ABG Base Excess ABG Methemoglobin [place] Test Hemoglobin Carboxyhemoglobin O2 Delivery Device Liter Flow Vent Setting Inspired O2 Critical Value Sodium Potassium Chloride Carbon Dioxide Anion Gap BUN Creatinine Estimated GFR POC Glucose 143 H 142 H 138 H Random Glucose Hemoglobin A1c Lactic Acid Calcium Magnesium Total Bilirubin AST ALT Alkaline Phosphatase Total Protein Albumin Urine Color Urine Clarity Urine pH Ur Specific [place] Urine Protein Urine Glucose (UA) Urine Ketones Urine Occult Blood Urine Nitrate Urine Bilirubin Urine Urobilinogen Ur Leukocyte Esterase Urine RBC Urine WBC Urine WBC Clumps Amorphous Sediment Urine Bacteria Urine Mucus Micro UA Comment Urine Culture Comments 02/03/18 02/03/18 02/03/18 20:45 21:20 22:05 WBC RBC Hgb Hct MCV MCH MCHC RDW Plt Count MPV Neut % (Auto) Lymph % (Auto) [place] % (Auto) Eos % (Auto) Baso % (Auto) Neut # (Auto) Lymph # (Auto) [place] # (Auto) Eos # (Auto) Baso # (Auto) WBC Differential Differential Comment Puncture Site Patient Temperature O2 Saturation ABG pH ABG pCO2 ABG pO2 ABG HCO3 ABG O2 Content ABG Base Excess ABG Methemoglobin [place] Test Hemoglobin Carboxyhemoglobin O2 Delivery Device Liter Flow Vent Setting Inspired O2 Critical Value Sodium Potassium Chloride Carbon Dioxide Anion Gap BUN Creatinine Estimated GFR POC Glucose 149 H 173 H Random Glucose Hemoglobin A1c Lactic Acid 2.3 H Calcium Magnesium Total Bilirubin AST ALT Alkaline Phosphatase Total Protein Albumin Urine Color Urine Clarity Urine pH Ur Specific [place] Urine Protein Urine Glucose (UA) Urine Ketones Urine Occult Blood Urine Nitrate Urine Bilirubin Urine Urobilinogen Ur Leukocyte Esterase Urine RBC Urine WBC Urine WBC Clumps Amorphous Sediment Urine Bacteria Urine Mucus Micro UA Comment Urine Culture Comments 02/03/18 02/04/18 02/04/18 23:08 00:18 01:08 WBC RBC Hgb Hct MCV MCH MCHC RDW Plt Count MPV Neut % (Auto) Lymph % (Auto) [place] % (Auto) Eos % (Auto) Baso % (Auto) Neut # (Auto) Lymph # (Auto) [place] # (Auto) Eos # (Auto) Baso # (Auto) WBC Differential Differential Comment Puncture Site Patient Temperature O2 Saturation ABG pH ABG pCO2 ABG pO2 ABG HCO3 ABG O2 Content ABG Base Excess ABG Methemoglobin [place] Test Hemoglobin Carboxyhemoglobin O2 Delivery Device Liter Flow Vent Setting Inspired O2 Critical Value Sodium Potassium Chloride Carbon Dioxide Anion Gap BUN Creatinine Estimated GFR POC Glucose 159 H 161 H 139 H Random Glucose Hemoglobin A1c Lactic Acid Calcium Magnesium Total Bilirubin AST ALT Alkaline Phosphatase Total Protein Albumin Urine Color Urine Clarity Urine pH Ur Specific [place] Urine Protein Urine Glucose (UA) Urine Ketones Urine Occult Blood Urine Nitrate Urine Bilirubin Urine Urobilinogen Ur Leukocyte Esterase Urine RBC Urine WBC Urine WBC Clumps Amorphous Sediment Urine Bacteria Urine Mucus Micro UA Comment Urine Culture Comments 02/04/18 02/04/18 02/04/18 02:28 03:28 04:38 WBC RBC Hgb Hct MCV MCH MCHC RDW Plt Count MPV Neut % (Auto) Lymph % (Auto) [place] % (Auto) Eos % (Auto) Baso % (Auto) Neut # (Auto) Lymph # (Auto) [place] # (Auto) Eos # (Auto) Baso # (Auto) WBC Differential Differential Comment Puncture Site Patient Temperature O2 Saturation ABG pH ABG pCO2 ABG pO2 ABG HCO3 ABG O2 Content ABG Base Excess ABG Methemoglobin [place] Test Hemoglobin Carboxyhemoglobin O2 Delivery Device Liter Flow Vent Setting Inspired O2 Critical Value Sodium Potassium Chloride Carbon Dioxide Anion Gap BUN Creatinine Estimated GFR POC Glucose 154 H 165 H 153 H Random Glucose Hemoglobin A1c Lactic Acid Calcium Magnesium Total Bilirubin AST ALT Alkaline Phosphatase Total Protein Albumin Urine Color Urine Clarity Urine pH Ur Specific [place] Urine Protein Urine Glucose (UA) Urine Ketones Urine Occult Blood Urine Nitrate Urine Bilirubin Urine Urobilinogen Ur Leukocyte Esterase Urine RBC Urine WBC Urine WBC Clumps Amorphous Sediment Urine Bacteria Urine Mucus Micro UA Comment Urine Culture Comments 02/04/18 02/04/18 02/04/18 04:49 04:49 05:32 WBC 9.2 RBC 3.86 L Hgb 11.4 L Hct 33.9 L MCV 87.9 MCH 29.5 MCHC 33.5 RDW 16.5 Plt Count 176 MPV 10.5 Neut % (Auto) 76.2 H Lymph % (Auto) 12.4 [place] % (Auto) 9.5 H Eos % (Auto) 1.6 Baso % (Auto) 0.3 Neut # (Auto) 7.0 Lymph # (Auto) 1.1 [place] # (Auto) 0.9 Eos # (Auto) 0.1 Baso # (Auto) 0.0 WBC Differential . Differential Comment Auto diff final Puncture Site Patient Temperature O2 Saturation ABG pH ABG pCO2 ABG pO2 ABG HCO3 ABG O2 Content ABG Base Excess ABG Methemoglobin [place] Test Hemoglobin Carboxyhemoglobin O2 Delivery Device Liter Flow Vent Setting Inspired O2 Critical Value Sodium 141 Potassium 4.3 Chloride 111 H Carbon Dioxide 17.9 L Anion Gap 12 BUN 38 H Creatinine 1.30 H Estimated GFR 39 L POC Glucose 154 H Random Glucose 149 H Hemoglobin A1c Lactic Acid Calcium 8.0 L Magnesium Total Bilirubin AST ALT Alkaline Phosphatase Total Protein Albumin Urine Color Urine Clarity Urine pH Ur Specific [place] Urine Protein Urine Glucose (UA) Urine Ketones Urine Occult Blood Urine Nitrate Urine Bilirubin Urine Urobilinogen Ur Leukocyte Esterase Urine RBC Urine WBC Urine WBC Clumps Amorphous Sediment Urine Bacteria Urine Mucus Micro UA Comment Urine Culture Comments 02/04/18 02/04/18 02/04/18 06:13 07:35 08:27 WBC RBC Hgb Hct MCV MCH MCHC RDW Plt Count MPV Neut % (Auto) Lymph % (Auto) [place] % (Auto) Eos % (Auto) Baso % (Auto) Neut # (Auto) Lymph # (Auto) [place] # (Auto) Eos # (Auto) Baso # (Auto) WBC Differential Differential Comment Puncture Site Patient Temperature O2 Saturation ABG pH ABG pCO2 ABG pO2 ABG HCO3 ABG O2 Content ABG Base Excess ABG Methemoglobin [place] Test Hemoglobin Carboxyhemoglobin O2 Delivery Device Liter Flow Vent Setting Inspired O2 Critical Value Sodium Potassium Chloride Carbon Dioxide Anion Gap BUN Creatinine Estimated GFR POC Glucose 175 H 157 H 165 H Random Glucose Hemoglobin A1c Lactic Acid Calcium Magnesium Total Bilirubin AST ALT Alkaline Phosphatase Total Protein Albumin Urine Color Urine Clarity Urine pH Ur Specific [place] Urine Protein Urine Glucose (UA) Urine Ketones Urine Occult Blood Urine Nitrate Urine Bilirubin Urine Urobilinogen Ur Leukocyte Esterase Urine RBC Urine WBC Urine WBC Clumps Amorphous Sediment Urine Bacteria Urine Mucus Micro UA Comment Urine Culture Comments 02/04/18 02/04/18 02/04/18 09:41 11:45 13:25 WBC RBC Hgb Hct MCV MCH MCHC RDW Plt Count MPV Neut % (Auto) Lymph % (Auto) [place] % (Auto) Eos % (Auto) Baso % (Auto) Neut # (Auto) Lymph # (Auto) [place] # (Auto) Eos # (Auto) Baso # (Auto) WBC Differential Differential Comment Puncture Site Right radial Patient Temperature 98.6 O2 Saturation 97 ABG pH 7.39 ABG pCO2 32 L ABG pO2 130 H ABG HCO3 19 L ABG O2 Content 16.4 ABG Base Excess -4.8 L ABG Methemoglobin 1.0 [place] Test Present Hemoglobin 11.9 L Carboxyhemoglobin 1.1 O2 Delivery Device Ventilator Liter Flow Vent Setting Cpap5/ps5 Inspired O2 40 Critical Value No Sodium Potassium Chloride Carbon Dioxide Anion Gap BUN Creatinine Estimated GFR POC Glucose 160 H 167 H Random Glucose Hemoglobin A1c Lactic Acid Calcium Magnesium Total Bilirubin AST ALT Alkaline Phosphatase Total Protein Albumin Urine Color Urine Clarity Urine pH Ur Specific [place] Urine Protein Urine Glucose (UA) Urine Ketones Urine Occult Blood Urine Nitrate Urine Bilirubin Urine Urobilinogen Ur Leukocyte Esterase Urine RBC Urine WBC Urine WBC Clumps Amorphous Sediment Urine Bacteria Urine Mucus Micro UA Comment Urine Culture Comments 02/04/18 02/04/18 02/04/18 15:37 15:37 15:37 WBC 9.5 RBC 3.56 L Hgb 10.9 L Hct 31.7 L MCV 89.2 MCH 30.6 MCHC 34.3 RDW 16.4 Plt Count 198 MPV 10.1 Neut % (Auto) 84.0 H Lymph % (Auto) 6.1 L [place] % (Auto) 8.2 H Eos % (Auto) 1.4 Baso % (Auto) 0.3 Neut # (Auto) 8.0 H Lymph # (Auto) 0.6 L [place] # (Auto) 0.8 Eos # (Auto) 0.1 Baso # (Auto) 0.0 WBC Differential . Differential Comment Auto diff final Puncture Site Patient Temperature O2 Saturation ABG pH ABG pCO2 ABG pO2 ABG HCO3 ABG O2 Content ABG Base Excess ABG Methemoglobin [place] Test Hemoglobin Carboxyhemoglobin O2 Delivery Device Liter Flow Vent Setting Inspired O2 Critical Value Sodium 144 Potassium 3.9 Chloride 111 H Carbon Dioxide 20.3 L Anion Gap 13 BUN 38 H Creatinine 1.21 H Estimated GFR 42 L POC Glucose Random Glucose 191 H Hemoglobin A1c Lactic Acid Calcium 8.4 L Magnesium 2.1 Total Bilirubin 0.5 AST 37 ALT 20 Alkaline Phosphatase 78 Total Protein 7.1 Albumin 2.4 L Urine Color Urine Clarity Urine pH Ur Specific [place] Urine Protein Urine Glucose (UA) Urine Ketones Urine Occult Blood Urine Nitrate Urine Bilirubin Urine Urobilinogen Ur Leukocyte Esterase Urine RBC Urine WBC Urine WBC Clumps Amorphous Sediment Urine Bacteria Urine Mucus Micro UA Comment Urine Culture Comments 02/04/18 02/05/18 02/05/18 21:19 00:45 03:51 WBC RBC Hgb Hct MCV MCH MCHC RDW Plt Count MPV Neut % (Auto) Lymph % (Auto) [place] % (Auto) Eos % (Auto) Baso % (Auto) Neut # (Auto) Lymph # (Auto) [place] # (Auto) Eos # (Auto) Baso # (Auto) WBC Differential Differential Comment Puncture Site Patient Temperature O2 Saturation ABG pH ABG pCO2 ABG pO2 ABG HCO3 ABG O2 Content ABG Base Excess ABG Methemoglobin [place] Test Hemoglobin Carboxyhemoglobin O2 Delivery Device Liter Flow Vent Setting Inspired O2 Critical Value Sodium Potassium Chloride Carbon Dioxide Anion Gap BUN Creatinine Estimated GFR POC Glucose 205 H 224 H 195 H Random Glucose Hemoglobin A1c Lactic Acid Calcium Magnesium Total Bilirubin AST ALT Alkaline Phosphatase Total Protein Albumin Urine Color Urine Clarity Urine pH Ur Specific [place] Urine Protein Urine Glucose (UA) Urine Ketones Urine Occult Blood Urine Nitrate Urine Bilirubin Urine Urobilinogen Ur Leukocyte Esterase Urine RBC Urine WBC Urine WBC Clumps Amorphous Sediment Urine Bacteria Urine Mucus Micro UA Comment Urine Culture Comments 02/05/18 02/05/18 02/05/18 04:12 04:13 08:56 WBC 7.5 RBC 4.01 Hgb 11.6 Hct 35.8 MCV 89.2 MCH 29.0 MCHC 32.5 RDW 16.3 Plt Count 177 MPV 10.0 Neut % (Auto) 74.0 H Lymph % (Auto) 12.6 [place] % (Auto) 11.5 H Eos % (Auto) 1.6 Baso % (Auto) 0.3 Neut # (Auto) 5.5 Lymph # (Auto) 0.9 L [place] # (Auto) 0.9 Eos # (Auto) 0.1 Baso # (Auto) 0.0 WBC Differential . Differential Comment Auto diff final Puncture Site Patient Temperature O2 Saturation ABG pH ABG pCO2 ABG pO2 ABG HCO3 ABG O2 Content ABG Base Excess ABG Methemoglobin [place] Test Hemoglobin Carboxyhemoglobin O2 Delivery Device Liter Flow Vent Setting Inspired O2 Critical Value Sodium Potassium Chloride Carbon Dioxide Anion Gap BUN Creatinine 1.21 H Estimated GFR 42 L POC Glucose 219 H Random Glucose Hemoglobin A1c Lactic Acid Calcium Magnesium Total Bilirubin AST ALT Alkaline Phosphatase Total Protein Albumin Urine Color Urine Clarity Urine pH Ur Specific [place] Urine Protein Urine Glucose (UA) Urine Ketones Urine Occult Blood Urine Nitrate Urine Bilirubin Urine Urobilinogen Ur Leukocyte Esterase Urine RBC Urine WBC Urine WBC Clumps Amorphous Sediment Urine Bacteria Urine Mucus Micro UA Comment Urine Culture Comments 02/05/18 02/05/18 02/05/18 09:35 09:55 09:55 WBC RBC Hgb Hct MCV MCH MCHC RDW Plt Count MPV Neut % (Auto) Lymph % (Auto) [place] % (Auto) Eos % (Auto) Baso % (Auto) Neut # (Auto) Lymph # (Auto) [place] # (Auto) Eos # (Auto) Baso # (Auto) WBC Differential Differential Comment Puncture Site Right radial Patient Temperature 98.6 O2 Saturation 97 ABG pH 7.39 ABG pCO2 33 L ABG pO2 128 H ABG HCO3 19 L ABG O2 Content 17.4 ABG Base Excess -4.7 L ABG Methemoglobin 1.0 [place] Test Present Hemoglobin 12.7 Carboxyhemoglobin 1.1 O2 Delivery Device Ventilator Liter Flow Vent Setting Cpap5/5 Inspired O2 35 Critical Value No Sodium 144 Potassium 3.8 Chloride 113 H Carbon Dioxide 20.8 L Anion Gap 10 BUN 34 H Creatinine 1.13 H Estimated GFR 45 L POC Glucose Random Glucose 197 H Hemoglobin A1c Lactic Acid Calcium 8.3 L Magnesium 2.1 Total Bilirubin 0.4 AST 29 ALT 20 Alkaline Phosphatase 79 Total Protein 7.0 Albumin 2.3 L Urine Color Urine Clarity Urine pH Ur Specific [place] Urine Protein Urine Glucose (UA) Urine Ketones Urine Occult Blood Urine Nitrate Urine Bilirubin Urine Urobilinogen Ur Leukocyte Esterase Urine RBC Urine WBC Urine WBC Clumps Amorphous Sediment Urine Bacteria Urine Mucus Micro UA Comment Urine Culture Comments 02/05/18 02/05/18 02/05/18 11:22 16:10 19:56 WBC RBC Hgb Hct MCV MCH MCHC RDW Plt Count MPV Neut % (Auto) Lymph % (Auto) [place] % (Auto) Eos % (Auto) Baso % (Auto) Neut # (Auto) Lymph # (Auto) [place] # (Auto) Eos # (Auto) Baso # (Auto) WBC Differential Differential Comment Puncture Site Patient Temperature O2 Saturation ABG pH ABG pCO2 ABG pO2 ABG HCO3 ABG O2 Content ABG Base Excess ABG Methemoglobin [place] Test Hemoglobin Carboxyhemoglobin O2 Delivery Device Liter Flow Vent Setting Inspired O2 Critical Value Sodium Potassium Chloride Carbon Dioxide Anion Gap BUN Creatinine Estimated GFR POC Glucose 226 H 246 H 258 H Random Glucose Hemoglobin A1c Lactic Acid Calcium Magnesium Total Bilirubin AST ALT Alkaline Phosphatase Total Protein Albumin Urine Color Urine Clarity Urine pH Ur Specific [place] Urine Protein Urine Glucose (UA) Urine Ketones Urine Occult Blood Urine Nitrate Urine Bilirubin Urine Urobilinogen Ur Leukocyte Esterase Urine RBC Urine WBC Urine WBC Clumps Amorphous Sediment Urine Bacteria Urine Mucus Micro UA Comment Urine Culture Comments 02/06/18 02/06/18 02/06/18 00:15 04:21 04:23 WBC 9.7 RBC 3.70 L Hgb 10.6 L Hct 32.5 L MCV 88.0 MCH 28.7 MCHC 32.7 RDW 15.9 Plt Count 229 MPV 10.0 Neut % (Auto) Lymph % (Auto) [place] % (Auto) Eos % (Auto) Baso % (Auto) Neut # (Auto) Lymph # (Auto) [place] # (Auto) Eos # (Auto) Baso # (Auto) WBC Differential Differential Comment Puncture Site Patient Temperature O2 Saturation ABG pH ABG pCO2 ABG pO2 ABG HCO3 ABG O2 Content ABG Base Excess ABG Methemoglobin [place] Test Hemoglobin Carboxyhemoglobin O2 Delivery Device Liter Flow Vent Setting Inspired O2 Critical Value Sodium Potassium Chloride Carbon Dioxide Anion Gap BUN Creatinine Estimated GFR POC Glucose 264 H 212 H Random Glucose Hemoglobin A1c Lactic Acid Calcium Magnesium Total Bilirubin AST ALT Alkaline Phosphatase Total Protein Albumin Urine Color Urine Clarity Urine pH Ur Specific [place] Urine Protein Urine Glucose (UA) Urine Ketones Urine Occult Blood Urine Nitrate Urine Bilirubin Urine Urobilinogen Ur Leukocyte Esterase Urine RBC Urine WBC Urine WBC Clumps Amorphous Sediment Urine Bacteria Urine Mucus Micro UA Comment Urine Culture Comments 02/06/18 02/06/18 04:23 07:51 WBC RBC Hgb Hct MCV MCH MCHC RDW Plt Count MPV Neut % (Auto) Lymph % (Auto) [place] % (Auto) Eos % (Auto) Baso % (Auto) Neut # (Auto) Lymph # (Auto) [place] # (Auto) Eos # (Auto) Baso # (Auto) WBC Differential Differential Comment Puncture Site Patient Temperature O2 Saturation ABG pH ABG pCO2 ABG pO2 ABG HCO3 ABG O2 Content ABG Base Excess ABG Methemoglobin [place] Test Hemoglobin Carboxyhemoglobin O2 Delivery Device Liter Flow Vent Setting Inspired O2 Critical Value Sodium 146 H Potassium 4.0 Chloride 113 H Carbon Dioxide 23.6 Anion Gap 9 BUN 34 H Creatinine 1.11 H Estimated GFR 46 L POC Glucose 198 H Random Glucose 193 H Hemoglobin A1c Lactic Acid Calcium 8.5 Magnesium 2.4 Total Bilirubin 0.4 AST 32 ALT 20 Alkaline Phosphatase 79 Total Protein 7.3 Albumin 2.5 L Urine Color Urine Clarity Urine pH Ur Specific [place] Urine Protein Urine Glucose (UA) Urine Ketones Urine Occult Blood Urine Nitrate Urine Bilirubin Urine Urobilinogen Ur Leukocyte Esterase Urine RBC Urine WBC Urine WBC Clumps Amorphous Sediment Urine Bacteria Urine Mucus Micro UA Comment Urine Culture Comments Result Diagrams: 02/06/18 04:23 02/06/18 04:23 Microbiology: Microbiology 02/03/18 02:37 Aerobic Blood Culture - Preliminary Blood - Peripheral No growth in 3 days Anaerobic Blood Culture - Preliminary No growth in 3 days 02/02/18 23:05 Aerobic Blood Culture - Preliminary Blood - Peripheral No growth in 4 days Anaerobic Blood Culture - Final QNS - See aerobic report. 01/31/18 21:38 Aerobic Blood Culture - Final Blood - Peripheral No growth in 5 days Anaerobic Blood Culture - Final No growth in 5 days 01/31/18 21:43 Aerobic Blood Culture - Final Blood - Peripheral No growth in 5 days Anaerobic Blood Culture - Final No growth in 5 days 02/02/18 12:45 Gram Stain - Final Sputum - Endotracheal Sputum Culture - Final Moderate growth normal respiratory yue 02/02/18 09:00 Urine Culture - Final Clean Catch Urine Escherichia coli ESBL positive Multidrug Resistant Imaging: Impressions Chest X-Ray 02/05/18 08:20 CONCLUSION: No acute cardiopulmonary disease. Chest X-Ray 02/06/18 06:00 CONCLUSION: Interval extubation. Stable aeration. Procedures: 02/02: Intubation . Assessment and Plan - Disease Oriented Problem List (1) Non-ST elevated myocardial infarction (non-STEMI) (2) Acute kidney injury (3) Type 2 diabetes mellitus (4) Acute hypoxemic respiratory failure (5) Pulmonary edema cardiac cause (6) Acute myocardial infarction (7) Atrial fibrillation (8) Cardiogenic shock - Symptom Scale (1) Chest pain 0-10 Scale: Unable to quantify (2) Dyspnea 0-10 Scale: Unable to quantify (3) Constipation 0-10 Scale: Unable to quantify Pertinent Non-Medical Issues: Psychosocial: She was born in [facility] and lived there most of her life. She was however her passed in 1983. She moved to [place] in the early s. 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 She has 1 son. 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 Legal: Living will on the chart with healthcare surrogate. Ethical issues impacting care: None noted. . Important Contacts: Granddaughter: Treva Arvizu Son: Vicky Arvizu . Prognosis: Her prognosis is guarded. She is of advanced age at 87 and showing signs of decline. In addition to renal insufficiency she has multiple cardiac risk factors to include hypertension, hyperlipidemia, obesity with BMI 30.8 kg/m, uncontrolled diabetes with a hemoglobin A1c greater than 9 and evidence of at minimum a non-STEMI. Cardiac catheterization per the correspondence coordinator report would be a high risk/"heroic" procedure. She is also febrile with no known source of infection. Urinalysis has been negative on 01/29 and 01/31, influenza is negative and blood cultures are negative times 1 day. Empiric antibiotic coverage is being initiated as cultures are pending. She is at increased risk of continued hospitalizations, complications and decline. . Code Status: Full Code Plan: PLAN: Legal decision maker: Patient at this time is confused and not capacitated for decision-making. It is uncertain if she will regain capacity. Living will and healthcare surrogate on the chart name her granddaughter Treva and Treva's brother Gonzalez as joint healthcare surrogate's. Gonzalez is a member of the [employer] currently guarding the president and unavailable. Goals: Aggressive, healthcare surrogate wishes to continue available treatments to help patient towards as full of recovery as possible CODE STATUS: FULL CODE SYMPTOMS: * Chest pain: No chest pain status post left heart catheterization with stent placement to the LAD. Pulmonary edema and cardiogenic shock are improving, now off vasopressors. Remains on milrinone for inotropic support. Cardiology following. * Dyspnea: dyspnea now improved, status post extubation yesterday. On 2 L nasal cannula, saturating well. Receiving diuretics for pulmonary edema, good urine output, improving on current therapy. * Constipation: Last bowel movement was 01/31, patient has not been receiving Senokot due to critical illness, inability to swallow. No PRN doses of lactulose or milk of magnesia have been given, no suppository given. recommend an oral dose of laxative. Palliative care will continue to follow the patient during hospital course as condition evolves, to assist patient/decision-maker with understanding of their medical conditions, weighing benefits/burdens of treatment options, for clarification of goals of treatment. Additionally will assist with any symptoms of palliative concern. . Attestation Attestation: To help prompt me to consider important information that might be impacting today's encounter and assessment, information from prior notes written by myself or my colleagues may have been "brought forward" into today's note. My signature on this note, however, is an attestation that I personally performed the exam, history, and/or decision-making noted today, and, unless otherwise indicated, the interactions with patient, family, and staff as well as the review of records all occurred today. I also attest that the listed assessment and stated plan reflect my best clinical judgment today based on the combination of historical information, prior notes, and today's exam/ interactions. When time spent is documented, it refers only to time spent today by the signer, or if indicated, combined time spent today by collaborating physician/nurse practitioner.
[2018-02-06] MEDS: Azithromycin Inj 500 MG in Sodium Chlor 0.9% Inj 250 ML IV.SIG SCH (13:00)
--- NOTE | 2018-02-06 13:18 | ECHRPT ---
Indication: Atrial Fib and Flutter CONCLUSIONS Normal left ventricular size. Mild concentric left ventricular hypertrophy. The left ventricular systolic function is moderately to severely reduced with an estimated ejection fraction of 30%. Anteroseptal and anteroapical severe hypokinesis. The left atrial size is mildly dilated. Normal atrial septal thickness. Mitral annular calcification is present. Aortic valve sclerosis is present. The inferior vena cava is dilated. BP: 142 / 59 HR: 91 Rhythm: MEASUREMENTS (Male / Female) Normal Values Technical Quality:Fair 2D ECHO LV Diastolic Diameter PLAX 4.2 cm 4.2 - 5.9 / 3.9 - 5.3 cm LV Systolic Diameter PLAX 2.8 cm IVS Diastolic Thickness 1.1 cm 0.6 - 1.0 / 0.6 - 0.9 cm LVPW Diastolic Thickness 1.1 cm 0.6 - 1.0 / 0.6 - 0.9 cm LV Relative Wall Thickness 0.5 RV Internal Dim ED PLAX 3.1 cm Aortic Root Diameter 2.8 cm LA Systolic Diameter LX 4.0 cm 3.0 - 4.0 / 2.7 - 3.8 cm DOPPLER Right Atrial Pressure 10.0 mmHg FINDINGS LEFT VENTRICLE Normal left ventricular size. Mild concentric left ventricular hypertrophy. The left ventricular systolic function is moderately and severely reduced with an estimated ejection fraction of 30%. Anteroseptal and anteroapical hypokinesis. RIGHT VENTRICLE Normal right ventricular size and systolic function. LEFT ATRIUM The left atrial size is mildly dilated. RIGHT ATRIUM The right atrial size is normal. ATRIAL SEPTUM Normal atrial septal thickness. AORTA The aortic root and proximal ascending aorta are normal in size on limited imaging. MITRAL VALVE Mitral annular calcification is present. AORTIC VALVE Trileaflet aortic valve. Aortic valve sclerosis is present. TRICUSPID VALVE Structurally normal tricuspid valve. PULMONARY VALVE The pulmonary valve is not well visualized. VESSELS The inferior vena cava is dilated. PERICARDIUM No pericardial effusion. Papo Ellis MD, FACC (Electronically Signed) Final Date:06 February 2018 13:17
--- NOTE | 2018-02-07 00:01 | P.PNCA ---
Subjective Interval history: Appears to be sundowning Unsure of baseline dementia No chest pain/SOB Medications and Allergies Active Medications: Active Medications Acetaminophen (Tylenol) 500 mg PO Q4H PRN PRN Reason: FEVER > 100.4 F Last Admin: 02/03/18 22:56 Dose: 500 mg Al Hydroxide/Mg Hydroxide (Milk Of Magnesia Liq) 30 ml PO Q12H PRN PRN Reason: Mild Constipation Albuterol (Duoneb Neb (Prn)) 1 ampul NEB Q2HR NEB PRN PRN Reason: SHORTNESS OF BREATH Alprazolam (Xanax) 0.5 mg PO Q8H PRN PRN Reason: ANXIETY Last Admin: 02/02/18 05:26 Dose: 0.5 mg Aspirin (Ecotrin) 81 mg PO DAILY [facility] Last Admin: 02/06/18 08:13 Dose: 81 mg Atorvastatin Calcium (Lipitor) 40 mg PO HS [facility] Last Admin: 02/06/18 21:46 Dose: 40 mg Bisacodyl (Dulcolax Supp) 10 mg RECTAL DAILY PRN PRN Reason: SEVERE CONSITIPATION Chlorhexidine Gluconate (Peridex 0.12% Oral Kit) 15 ml OROPHARYNG BID@0800, 2000 [facility] Last Admin: 02/06/18 21:46 Dose: 15 ml Clopidogrel Bisulfate (Plavix) 75 mg PO DAILY [facility] Last Admin: 02/06/18 08:13 Dose: 75 mg Dextrose (D50w Vial) 50 ml IV.PUSH UNSCH PRN PRN Reason: PER HYPOGLYCEMIA PROTOCOL Famotidine (Pepcid Pf Inj) 10 mg IV.PUSH Q12HR [facility] Last Admin: 02/06/18 21:47 Dose: 10 mg Glucagon (Glucagon Inj) 1 mg OTHER PRN PRN PRN Reason: for Hypoglycemia Protocol Heparin Sodium (Porcine) (Heparin Inj) 5,000 units SQ Q8HR [facility] Last Admin: 02/06/18 21:49 Dose: 5,000 units Ertapenem 1,000 mg/ Sodium (Chloride) 100 mls @ 200 mls/hr IV.SIG Q24H [facility] Last Admin: 02/06/18 11:33 Dose: 200 mls/hr Insulin Aspart (Novolog Insulin Correctional Sugar Inj) 0 unit SQ Q4HR [facility]; Protocol Last Admin: 02/06/18 23:41 Dose: 2 unit Lactulose (Lactulose Liq) 30 ml PO DAILY PRN PRN Reason: SEVERE CONSITIPATION Metoprolol Tartrate (Lopressor) 25 mg PO TID [facility] Last Admin: 02/06/18 21:48 Dose: Not Given Miscellaneous (Pill Splitter) 1 each OTHER UNSCH PRN PRN Reason: SEE LABEL COMMENTS Miscellaneous Medication () 1 each OROPHARYNG 0000,0400,1200,1600 [facility] Last Admin: 02/06/18 23:42 Dose: 1 each Nitroglycerin (Nitro-Bid 2% Oint) 0.5 inch TOPICAL Q6HR [facility] Last Admin: 02/06/18 23:42 Dose: 0.5 inch Sennosides (Senokot) 17.2 mg PO Q12H PRN PRN Reason: Moderate Constipation Sodium Chloride (Ns Flush) 2 ml IV.FLUSH BID [facility] Last Admin: 02/06/18 21:47 Dose: 2 ml Sodium Chloride (Ns Flush) 2 ml IV.FLUSH UNSCH PRN PRN Reason: FLUSH AFTER USING IV ACCESS Spironolactone (Aldactone) 50 mg PO BID@0900,1800 [facility] Last Admin: 02/06/18 21:48 Dose: Not Given Tramadol HCl (Ultram) 50 mg PO Q6H PRN PRN Reason: Pain 1-10 Last Admin: 02/02/18 05:25 Dose: 50 mg Whey (Beneprotein Powder) 1 packet G-TUBE TID [facility] Last Admin: 02/06/18 21:48 Dose: Not Given Allergies Allergy/AdvReac Type Severity Reaction Status Date / Time penicillin G Allergy Severe UNKNOWN Verified 01/31/18 02:06 Sulfa (Sulfonamide Allergy Severe UNKNOWN Verified 01/31/18 02:06 Antibiotics) ciprofloxacin AdvReac unknown Verified 02/03/18 11:14 Home Medications Medication Instructions Recorded Confirmed Type alprazolam 0.5 mg PO Q8HR PRN 01/31/18 01/31/18 History tramadol 50 mg PO Q6H PRN 01/31/18 01/31/18 History Physical Exam Vital signs: Vital Signs 02/06/18 00:00 02/06/18 00:02 02/06/18 00:17 Temperature 98 F Pulse Rate 103 H 103 H 94 H Respiratory Rate 25 H 28 H 21 Blood Pressure 151/80 H 159/73 H Pulse Oximetry 95 94 L 99 02/06/18 00:32 02/06/18 00:47 02/06/18 01:00 Temperature Pulse Rate 104 H 94 H 101 H Respiratory Rate 23 20 21 Blood Pressure 145/74 H 126/60 Pulse Oximetry 98 98 99 02/06/18 01:02 02/06/18 01:17 02/06/18 01:32 Temperature Pulse Rate 95 H 93 H 91 H Respiratory Rate 17 19 21 Blood Pressure 140/63 131/61 136/66 Pulse Oximetry 99 98 97 02/06/18 01:47 02/06/18 02:00 02/06/18 02:02 Temperature Pulse Rate 91 H 92 H 90 Respiratory Rate 25 H 20 26 H Blood Pressure 109/62 122/61 Pulse Oximetry 98 97 97 02/06/18 02:17 02/06/18 02:32 02/06/18 02:47 Temperature Pulse Rate 91 H 96 H 95 H Respiratory Rate 24 26 H 20 Blood Pressure 117/68 134/69 142/68 H Pulse Oximetry 97 98 98 02/06/18 03:00 02/06/18 03:02 02/06/18 03:17 Temperature Pulse Rate 89 89 92 H Respiratory Rate 19 20 23 Blood Pressure 139/65 122/64 Pulse Oximetry 97 98 98 02/06/18 03:32 02/06/18 03:47 02/06/18 04:00 Temperature 97.6 F Pulse Rate 84 81 87 Respiratory Rate 24 17 18 Blood Pressure 132/63 137/63 Pulse Oximetry 97 96 96 02/06/18 04:02 02/06/18 04:17 02/06/18 04:32 Temperature Pulse Rate 92 H 89 96 H Respiratory Rate 21 21 29 H Blood Pressure 141/67 H 126/63 122/63 Pulse Oximetry 96 97 97 02/06/18 04:47 02/06/18 05:00 02/06/18 05:17 Temperature Pulse Rate 85 87 87 Respiratory Rate 22 29 H 19 Blood Pressure 120/61 129/57 L Pulse Oximetry 96 98 97 02/06/18 05:32 02/06/18 05:47 02/06/18 06:00 Temperature Pulse Rate 82 83 85 Respiratory Rate 33 H 27 H 21 Blood Pressure 145/68 H 147/63 H Pulse Oximetry 97 97 99 02/06/18 06:02 02/06/18 08:00 02/06/18 08:05 Temperature 98.8 F Pulse Rate 90 87 Respiratory Rate 30 H 16 Blood Pressure 151/69 H 132/60 Pulse Oximetry 99 97 98 02/06/18 09:00 02/06/18 09:25 02/06/18 10:00 Temperature Pulse Rate 84 79 Respiratory Rate 26 H 14 Blood Pressure 131/62 111/56 L Pulse Oximetry 98 100 02/06/18 11:00 02/06/18 12:00 02/06/18 12:17 Temperature Pulse Rate 93 H 87 87 Respiratory Rate 26 H 18 20 Blood Pressure 142/59 H 132/63 126/58 L Pulse Oximetry 95 94 L 75 L 02/06/18 12:32 02/06/18 12:47 02/06/18 13:00 Temperature Pulse Rate 83 84 83 Respiratory Rate 20 16 15 Blood Pressure 121/56 L 147/67 H Pulse Oximetry 95 98 97 02/06/18 14:00 02/06/18 15:00 02/06/18 16:00 Temperature Pulse Rate 81 83 82 Respiratory Rate 25 H 32 H 24 Blood Pressure 117/58 L Pulse Oximetry 98 100 99 02/06/18 17:00 02/06/18 18:00 02/06/18 19:00 Temperature Pulse Rate 78 80 91 H Respiratory Rate 17 15 31 H Blood Pressure 111/60 123/59 L 128/65 Pulse Oximetry 98 98 02/06/18 20:00 02/06/18 21:00 02/06/18 22:00 Temperature 98 F Pulse Rate 104 H 97 H 100 H Respiratory Rate 26 H 21 39 H Blood Pressure 137/62 124/69 133/76 Pulse Oximetry 88 L 95 02/06/18 23:00 Temperature Pulse Rate 115 H Respiratory Rate 40 H Blood Pressure 156/114 H Pulse Oximetry 88 L Intake & Output 02/06/18 02/06/18 02/07/18 06:59 18:59 06:59 Intake Total 240 / 240 Output Total 450 / 450 300 / 300 Balance -450 / -450 -60 / -60 Weight 86.5 kg Intake: Oral 240 / 240 Output: Urine Amount (Catheter) 450 / 450 300 / 300 Indwelling Temp Sensing 450 / 450 300 / 300 Catheter Other: # Voids 1 Date of Last Bowel Movement 01/31/18 02/06/18 02/06/18 # Incontinent Bowel Movements 1 1 Narrative: GENERAL: NAD SKIN: Cool and dry HEAD: Atraumatic. Normocephalic. EYES: Pupils equal and round. No scleral icterus. No injection or drainage. ENT: No nasal bleeding or discharge. Mucous membranes pink and moist. NECK: Trachea midline. No JVD. ET tube in place CARDIOVASCULAR: Irregularly irregular RESPIRATORY: No accessory muscle use. Crackles/rales noted bilaterally. GASTROINTESTINAL: Abdomen soft, non-tender, nondistended. Hepatic and splenic margins not palpable. MUSCULOSKELETAL: Extremities without clubbing, cyanosis, or edema. No obvious deformities. NEUROLOGICAL: No focal deficits - Urinary Catheter Management Indwelling Temp Sensing Catheter Cath placed during this visit: no Urethral indwelling: Yes Reason for continuing: Hourly intake/output Results 02/06/18 04:23 02/06/18 04:23 Cardiac Enzymes 02/05/18 02/06/18 Range/Units 09:55 04:23 AST 29 32 (15-37) U/L CBC 02/05/18 02/06/18 Range/Units 04:13 04:23 WBC 7.5 9.7 (4.0-11.0) th/mm3 RBC 4.01 3.70 L (4.00-5.30) mil/mm3 Hgb 11.6 10.6 L (11.6-15.3) gm/dL Hct 35.8 32.5 L (35.0-46.0) % Plt Count 177 229 (150-450) th/mm3 Neut # (Auto) 5.5 (1.8-7.7) th/mm3 Lymph # (Auto) 0.9 L (1.0-4.8) th/mm3 [place] # (Auto) 0.9 (0.0-0.9) th/mm3 Eos # (Auto) 0.1 (0.0-0.4) th/mm3 Baso # (Auto) 0.0 (0.0-0.2) th/mm3 Comprehensive Metabolic Panel 02/05/18 02/05/18 02/06/18 Range/Units 04:12 09:55 04:23 Sodium 144 146 H (136-145) meq/L Potassium 3.8 4.0 (3.5-5.1) meq/L Chloride 113 H 113 H (98-107) meq/L Carbon Dioxide 20.8 L 23.6 (21.0-32.0) meq/L BUN 34 H 34 H (7-18) mg/dL Creatinine 1.21 H 1.13 H 1.11 H (0.50-1.00) mg/dL Calcium 8.3 L 8.5 (8.5-10.1) mg/dL AST 29 32 (15-37) U/L ALT 20 20 (10-53) U/L Alkaline Phosphatase 79 79 (45-117) U/L Total Protein 7.0 7.3 (6.4-8.2) g/dL Albumin 2.3 L 2.5 L (3.4-5.0) g/dL Intake and Output 02/06/18 02/06/18 02/07/18 14:59 22:59 06:59 Intake Total 240 / 240 Output Total 300 / 300 Balance -60 / -60 Intake: Oral 240 / 240 Output: Urine Amount (Catheter) 300 / 300 Indwelling Temp Sensing 300 / 300 Catheter Other: # Voids 1 Date of Last Bowel Movement 02/06/18 02/06/18 # Incontinent Bowel Movements 1 - Imaging and Cardiology Imaging: Impressions Chest X-Ray 02/05/18 08:20 CONCLUSION: No acute cardiopulmonary disease. Chest X-Ray 02/06/18 06:00 CONCLUSION: Interval extubation. Stable aeration. Assessment and Plan - Assessment (1) Frail elderly Code(s): R54 - Age-related physical debility Status: Acute (2) Acute myocardial infarction Code(s): I21.9 - Acute myocardial infarction, unspecified Status: Acute (3) Febrile illness Code(s): R50.9 - Fever, unspecified Status: Acute (4) Acute kidney injury Code(s): N17.9 - Acute kidney failure, unspecified Status: Acute (5) Atrial fibrillation Code(s): I48.91 - Unspecified atrial fibrillation Status: Acute (6) Cardiogenic shock Code(s): R57.0 - Cardiogenic shock Status: Acute (7) Acute hypoxemic respiratory failure Code(s): J96.01 - Acute respiratory failure with hypoxia Status: Acute (8) Pulmonary edema cardiac cause Code(s): I50.1 - Left ventricular failure, unspecified Status: Acute (9) Acute myocardial infarction Code(s): I21.9 - Acute myocardial infarction, unspecified Status: Acute - Plan 1) Acute myocardial infarction anteriorly 2) Cardiogenic shock 3) NSVT 4) LOLIS Plan: 1) Diuresed well 2) Con't with diuresis 3) Extubated 4) ASA/Plavix for PCI 5) Con't Spironolactone 6) Repeat echo showing better function, EF 30-35% 7) Will need to discuss with family about anticoagulation for AFib Combination of antiplatelet and anticoagulation on discharge Concern for current state, will need to see if group home anti-coagulation candidate
[2018-02-07 05:37] LABS: Hematocrit 30.6 % (35.0-46.0); Hemoglobin 10.1 gm/dL (11.6-15.3); Mean Corpuscular HGB Conc 32.9 % (32.0-36.0); Mean Corpuscular Hemoglobin 28.9 pg (27.0-34.0); Mean Corpuscular Volume 87.8 fL (80.0-100.0); Platelet Count 272 th/mm3 (150-450); Red Blood Count 3.49 mil/mm3 (4.00-5.30); Red Cell Distribution Width 15.6 % (11.6-17.2); White Blood Count 9.1 th/mm3 (4.0-11.0)
[2018-02-07 06:02] LABS: Albumin 2.6 g/dL (3.4-5.0); Anion Gap 10 meq/L (5-15); Aspartate Aminotransferase 29 U/L (15-37); Blood Urea Nitrogen 38 mg/dL (7-18); Calcium 8.5 mg/dL (8.5-10.1); Carbon Dioxide 22.6 meq/L (21.0-32.0); Chloride 114 meq/L (98-107); Glomerular Filtration Rate 44 mL/min (>89); Glucose,Random 168 mg/dL (74-106); Potassium 3.7 meq/L (3.5-5.1); Sodium 147 meq/L (136-145)
[2018-02-07 06:03] LABS: Alanine Aminotransferase 19 U/L (10-53)
[2018-02-07 06:05] LABS: Alkaline Phosphatase 73 U/L (45-117); Total Protein 7.2 g/dL (6.4-8.2)
[2018-02-07] MEDS: Insulin NovoLOG Aspart Correctional Sugar Inj SQ SCH ×5 (06:31→20:07)
[2018-02-07] MEDS: Oral Hygiene Kit OROPHARYNG SCH ×3 (06:32→17:30)
[2018-02-07] MEDS: Heparin - SQ 10,000 UNITS/ML Vial SQ SCH ×3 (06:32→21:27)
[2018-02-07] MEDS: Chlorhexidine 0.12% Oral Kit 15 ML UDC OROPHARYNG SCH ×2 (08:43→20:08)
--- NOTE | 2018-02-07 09:05 | P.PN ---
Subjective Interval history: Follow-up acute respiratory failure/non-ST elevation [place]/cardiogenic shock February 07, 2018-patient seen and examined; she is alert and oriented x2. 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 Vital stable. Case discussed with RN as well as adult protective caseworker. Physical Exam Vital signs: Vital Signs 02/06/18 09:00 02/06/18 09:25 02/06/18 10:00 Temperature Pulse Rate 84 79 Respiratory Rate 26 H 14 Blood Pressure 131/62 111/56 L Pulse Oximetry 98 100 02/06/18 11:00 02/06/18 12:00 02/06/18 12:17 Temperature Pulse Rate 93 H 87 87 Respiratory Rate 26 H 18 20 Blood Pressure 142/59 H 132/63 126/58 L Pulse Oximetry 95 94 L 75 L 02/06/18 12:32 02/06/18 12:47 02/06/18 13:00 Temperature Pulse Rate 83 84 83 Respiratory Rate 20 16 15 Blood Pressure 121/56 L 147/67 H Pulse Oximetry 95 98 97 02/06/18 14:00 02/06/18 15:00 02/06/18 16:00 Temperature Pulse Rate 81 83 82 Respiratory Rate 25 H 32 H 24 Blood Pressure 117/58 L Pulse Oximetry 98 100 99 02/06/18 17:00 02/06/18 18:00 02/06/18 19:00 Temperature Pulse Rate 78 80 91 H Respiratory Rate 17 15 31 H Blood Pressure 111/60 123/59 L 128/65 Pulse Oximetry 98 98 02/06/18 20:00 02/06/18 21:00 02/06/18 22:00 Temperature 98 F Pulse Rate 104 H 97 H 100 H Respiratory Rate 26 H 21 39 H Blood Pressure 137/62 124/69 133/76 Pulse Oximetry 88 L 95 02/06/18 23:00 02/06/18 23:26 02/07/18 00:00 Temperature 98.2 F Pulse Rate 115 H 96 H 87 Respiratory Rate 40 H 32 H 20 Blood Pressure 156/114 H 147/83 H 160/77 H Pulse Oximetry 88 L 91 L 98 02/07/18 01:00 02/07/18 02:00 02/07/18 03:00 Temperature Pulse Rate 92 H 98 H 107 H Respiratory Rate 19 27 H 25 H Blood Pressure 156/73 H 160/73 H 162/96 H Pulse Oximetry 96 97 92 L 02/07/18 04:00 02/07/18 05:00 02/07/18 06:00 Temperature 98.3 F Pulse Rate 90 105 H 94 H Respiratory Rate 18 23 34 H Blood Pressure 158/75 H 152/73 H 154/78 H Pulse Oximetry 97 92 L 99 Intake & Output 02/06/18 02/07/18 02/07/18 18:59 06:59 18:59 Intake Total 240 / 240 Output Total 300 / 300 Balance -60 / -60 Intake: Oral 240 / 240 Output: Urine Amount (Catheter) 300 / 300 Indwelling Temp Sensing 300 / 300 Catheter Other: # Voids 1 # Incontinent Voids 3 Date of Last Bowel Movement 02/06/18 02/06/18 # Incontinent Bowel Movements 1 Narrative: GENERAL: NAD SKIN: Cool and dry HEAD: Atraumatic. Normocephalic. EYES: Pupils equal and round. No scleral icterus. No injection or drainage. ENT: No nasal bleeding or discharge. Mucous membranes pink and moist. NECK: Trachea midline. No JVD. CARDIOVASCULAR: Irregularly irregular RESPIRATORY: No accessory muscle use. GASTROINTESTINAL: Abdomen soft, non-tender, nondistended. Hepatic and splenic margins not palpable. MUSCULOSKELETAL: Extremities without clubbing, cyanosis, or edema. No obvious deformities. NEUROLOGICAL: No focal deficits - Urinary Catheter Management Indwelling Temp Sensing Catheter Cath placed during this visit: no Urethral indwelling: Yes Reason for continuing: Hourly intake/output Results - Labs CBC & Chem 7: 02/07/18 04:47 02/07/18 04:47 Laboratory Results - last 24 hr 02/06/18 02/06/18 02/06/18 12:10 16:43 21:55 WBC RBC Hgb Hct MCV MCH MCHC RDW Plt Count MPV Sodium Potassium Chloride Carbon Dioxide Anion Gap BUN Creatinine Estimated GFR POC Glucose 212 H 203 H 196 H Random Glucose Calcium Total Bilirubin AST ALT Alkaline Phosphatase Total Protein Albumin 02/06/18 02/07/18 02/07/18 23:29 04:47 04:47 WBC 9.1 RBC 3.49 L Hgb 10.1 L Hct 30.6 L MCV 87.8 MCH 28.9 MCHC 32.9 RDW 15.6 Plt Count 272 MPV 10.0 Sodium 147 H Potassium 3.7 Chloride 114 H Carbon Dioxide 22.6 Anion Gap 10 BUN 38 H Creatinine 1.17 H Estimated GFR 44 L POC Glucose 187 H Random Glucose 168 H Calcium 8.5 Total Bilirubin 0.5 AST 29 ALT 19 Alkaline Phosphatase 73 Total Protein 7.2 Albumin 2.6 L Microbiology 02/03/18 02:37 Blood - Peripheral Aerobic Blood Culture - Preliminary No growth in 3 days 02/03/18 02:37 Blood - Peripheral Anaerobic Blood Culture - Preliminary No growth in 3 days 02/02/18 23:05 Blood - Peripheral Aerobic Blood Culture - Preliminary No growth in 4 days 02/02/18 23:05 Blood - Peripheral Anaerobic Blood Culture - Final QNS - See aerobic report. Assessment and Plan - Plan 87-year-old female with: Acute hypoxemic respiratory failure-resolved -Maintain oxygen saturation above 92% -DuoNeb every hours as needed, EzPAP Acute myocardial infarction -Continue antiplatelet therapy (ASA, Plavix) -Status post PCI with LAD stent (LU[facility]MARIA) 02/03/[address] Peralta -Aldactone 50 mg twice daily -Management per cardiology Ischemic cardiomyopathy -Continue beta-blockers metoprolol 25 mg p.o. 3 times daily -Repeat echo February 06, 2018 with EF of 30% Atrial fibrillation -Currently rate controlled -Continue metoprolol 25 three times daily -Currently on DAPT and subcu heparin, if A. fib persists may need full anticoagulation -Cardiology to discuss with family for possible starting oral anticoagulation versus others Hyperlipidemia -On Statin Acute kidney injury-resolved -Avoid nephrotoxins -Nephrology signed off Diabetes mellitus, poorly controlled -Currently on Medium correction sliding scale insulin protocol UTI , ESBL + organism -Currently on ertapenem and monitor culture report -Management per ID Prophylaxis -Heparin sq -Pepcid -PT/OT
[2018-02-07] MEDS: Beneprotein Powder Packet G-TUBE SCH ×3 (09:44→17:50)
[2018-02-07] MEDS: Famotidine PF Inj 20 MG/2 ML Vial IV.PUSH SCH ×2 (09:45→20:08)
[2018-02-07] MEDS: Metoprolol Tartrate 25 MG Tablet PO SCH ×3 (09:45→17:35)
[2018-02-07] MEDS: Spironolactone 25 MG Tablet PO SCH ×2 (09:48→17:35)
--- NOTE | 2018-02-07 15:33 | P.PNPAL ---
Reason for Visit Reason for visit: a. To assist with evaluation and management of symptoms including: Confusion, weakness b. To assist medical decision maker(s) with: better understanding of current medical conditions; weighing benefits/burdens of medical treatment options; making medical treatment decisions. Subjective Subjective/Interval History: This is an 87-year-old female with a past medical history of diabetes, hypertension, rectal cancer in remission, anxiety, depression, coronary artery disease status post stent, former smoker who presented to the emergency department 01/31/2018 plane of chest pain, substernal, pressure, nonradiating, persistent, which resolved with aspirin and sublingual nitro given to her by EMS. She had taken a Xanax earlier to try and help her sleep. Her presenting troponin was 1.25 did she had been seen in the ED on 01/28 and had troponin levels of 0.11, 0.96, 1.08. She was diagnosed with a non-STEMI and seen by cardiology. Cardiac catheterization was held secondary to renal insufficiency. Nephrology consultation was requested for further evaluation. Patient seen for follow-up of symptom management confusion and weakness and assist family in goals of medical treatment. Patient up to bedside commode with a 2 person assist. She is complaining of exhaustion and requesting to go back to bed. She has difficulty with turn and pivot. She was seen by physical therapy later for evaluation and found to be able to follow some simple commands. She was out of bed with PT requiring, again, a 2 person assistance to ambulate from bed to bathroom. Vital signs remained stable during exercise. She was noted to have decreased insight into her deficits. She has been exhibiting signs of sundowning at night and has required restraints and bed alarms to prevent falls as she tries to get out of bed. She remains in soft wrist restraints at this time as she has poor safety awareness and frequently tries to get up. She is oriented currently to self and place. She has poor short-term memory, but fairly intact long-term memory. . Family/Friend Interactions: Spoke with her granddaughter via telephone and allowed patient to converse with her. The granddaughter continues to reinforce to her grandmother that she is ill and needs to be compliant with hospital directives in order to get better. The patient is pleasant and conversant with her but frequently forgets family names and confuses family members. Reviewed clinical findings with the granddaughter to include therapy modalities, vital signs, laboratory studies, specialists opinions and current clinical status. She expresses gratitude for palliative care support and continues to express aggressive goals to include rehabilitation and full CODE STATUS for her grandmother. . Advance Directives Living Will: Copy in medical record Health Care Surrogate: Copy in medical record Health Care Surrogate Name and Number: Treva Arvizu Objective Vital Signs: Vital Signs 02/06/18 16:00 02/06/18 17:00 02/06/18 18:00 Temperature Pulse Rate 82 78 80 Respiratory Rate 24 17 15 Blood Pressure 111/60 123/59 L Pulse Oximetry 99 98 98 02/06/18 19:00 02/06/18 20:00 02/06/18 21:00 Temperature 98 F Pulse Rate 91 H 104 H 97 H Respiratory Rate 31 H 26 H 21 Blood Pressure 128/65 137/62 124/69 Pulse Oximetry 88 L 02/06/18 22:00 02/06/18 23:00 02/06/18 23:26 Temperature Pulse Rate 100 H 115 H 96 H Respiratory Rate 39 H 40 H 32 H Blood Pressure 133/76 156/114 H 147/83 H Pulse Oximetry 95 88 L 91 L 02/07/18 00:00 02/07/18 01:00 02/07/18 02:00 Temperature 98.2 F Pulse Rate 87 92 H 98 H Respiratory Rate 20 19 27 H Blood Pressure 160/77 H 156/73 H 160/73 H Pulse Oximetry 98 96 97 02/07/18 03:00 02/07/18 04:00 02/07/18 05:00 Temperature 98.3 F Pulse Rate 107 H 90 105 H Respiratory Rate 25 H 18 23 Blood Pressure 162/96 H 158/75 H 152/73 H Pulse Oximetry 92 L 97 92 L 02/07/18 06:00 02/07/18 07:00 02/07/18 08:00 Temperature 98.4 F Pulse Rate 94 H 104 H 94 H Respiratory Rate 34 H 28 H 36 H Blood Pressure 154/78 H 159/66 H 152/79 H Pulse Oximetry 99 98 93 L 02/07/18 09:12 02/07/18 09:16 02/07/18 10:00 Temperature Pulse Rate 114 H 99 H 102 H Respiratory Rate 25 H 29 H Blood Pressure 148/78 H 145/100 H Pulse Oximetry 95 85 L 02/07/18 11:00 02/07/18 12:00 02/07/18 13:00 Temperature Pulse Rate 85 92 H 93 H Respiratory Rate 18 21 30 H Blood Pressure 132/58 L 148/65 H 138/62 Pulse Oximetry 97 84 L 95 02/07/18 13:46 02/07/18 14:00 02/07/18 14:02 Temperature Pulse Rate 93 H Respiratory Rate 27 H Blood Pressure 134/67 Pulse Oximetry 95 Intake & Output 02/06/18 02/07/18 02/07/18 18:59 06:59 18:59 Intake Total 240 / 240 1150 / 1150 Output Total 300 / 300 Balance -60 / -60 1150 / 1150 Intake: IV 1150 / 1150 INVanz Inj 1,000 MG In NS Inj 100 / 100 100 ML @ 200 mls/hr IV.SIG Q24H TATYANA Rx#:[id number] Oral 240 / 240 Output: Urine Amount (Catheter) 300 / 300 Indwelling Temp Sensing 300 / 300 Catheter Other: # Voids 1 # Incontinent Voids 3 Date of Last Bowel Movement 02/06/18 02/06/18 02/06/18 # Incontinent Bowel Movements 1 Physical Exam: CONSTITUTIONAL/GENERAL: This is an adequately nourished patient, lying in bed, awake, alert, confused. TUBES/LINES/DRAINS: PIV x3 NECK: Trachea midline. Supple, nontender. No palpable thyroid enlargement or nodularity. CARDIOVASCULAR: Irregular rhythm, mildly tachycardic rate with no rub murmur or gallop. Mild JVD. Peripheral pulses symmetric. RESPIRATORY/CHEST: Coarse breath sounds throughout all lung howell with scattered rhonchi. GASTROINTESTINAL: Abdomen soft, non-tender, nondistended. No hepato-splenomegaly , or palpable masses. No guarding. Bowel sounds present. GENITOURINARY: Without palpable bladder distension. MUSCULOSKELETAL: Extremities without clubbing or cyanosis, trace dependent edema. No joint tenderness or effusion noted. No calf tenderness. No mottling or clubbing. NEUROLOGICAL: Alert, confused, oriented to self, place, moves all extremities to command. PSYCHIATRIC: Anxious, confused. . Diagnostic Tests Laboratory: Laboratory Results - last 72 hr 02/04/18 02/04/18 02/04/18 15:37 15:37 15:37 WBC 9.5 RBC 3.56 L Hgb 10.9 L Hct 31.7 L MCV 89.2 MCH 30.6 MCHC 34.3 RDW 16.4 Plt Count 198 MPV 10.1 Neut % (Auto) 84.0 H Lymph % (Auto) 6.1 L [place] % (Auto) 8.2 H Eos % (Auto) 1.4 Baso % (Auto) 0.3 Neut # (Auto) 8.0 H Lymph # (Auto) 0.6 L [place] # (Auto) 0.8 Eos # (Auto) 0.1 Baso # (Auto) 0.0 WBC Differential . Differential Comment Auto diff final Puncture Site Patient Temperature O2 Saturation ABG pH ABG pCO2 ABG pO2 ABG HCO3 ABG O2 Content ABG Base Excess ABG Methemoglobin [place] Test Hemoglobin Carboxyhemoglobin O2 Delivery Device Vent Setting Inspired O2 Critical Value Sodium 144 Potassium 3.9 Chloride 111 H Carbon Dioxide 20.3 L Anion Gap 13 BUN 38 H Creatinine 1.21 H Estimated GFR 42 L POC Glucose Random Glucose 191 H Calcium 8.4 L Magnesium 2.1 Total Bilirubin 0.5 AST 37 ALT 20 Alkaline Phosphatase 78 Total Protein 7.1 Albumin 2.4 L 02/04/18 02/05/18 02/05/18 21:19 00:45 03:51 WBC RBC Hgb Hct MCV MCH MCHC RDW Plt Count MPV Neut % (Auto) Lymph % (Auto) [place] % (Auto) Eos % (Auto) Baso % (Auto) Neut # (Auto) Lymph # (Auto) [place] # (Auto) Eos # (Auto) Baso # (Auto) WBC Differential Differential Comment Puncture Site Patient Temperature O2 Saturation ABG pH ABG pCO2 ABG pO2 ABG HCO3 ABG O2 Content ABG Base Excess ABG Methemoglobin [place] Test Hemoglobin Carboxyhemoglobin O2 Delivery Device Vent Setting Inspired O2 Critical Value Sodium Potassium Chloride Carbon Dioxide Anion Gap BUN Creatinine Estimated GFR POC Glucose 205 H 224 H 195 H Random Glucose Calcium Magnesium Total Bilirubin AST ALT Alkaline Phosphatase Total Protein Albumin 02/05/18 02/05/18 02/05/18 04:12 04:13 08:56 WBC 7.5 RBC 4.01 Hgb 11.6 Hct 35.8 MCV 89.2 MCH 29.0 MCHC 32.5 RDW 16.3 Plt Count 177 MPV 10.0 Neut % (Auto) 74.0 H Lymph % (Auto) 12.6 [place] % (Auto) 11.5 H Eos % (Auto) 1.6 Baso % (Auto) 0.3 Neut # (Auto) 5.5 Lymph # (Auto) 0.9 L [place] # (Auto) 0.9 Eos # (Auto) 0.1 Baso # (Auto) 0.0 WBC Differential . Differential Comment Auto diff final Puncture Site Patient Temperature O2 Saturation ABG pH ABG pCO2 ABG pO2 ABG HCO3 ABG O2 Content ABG Base Excess ABG Methemoglobin [place] Test Hemoglobin Carboxyhemoglobin O2 Delivery Device Vent Setting Inspired O2 Critical Value Sodium Potassium Chloride Carbon Dioxide Anion Gap BUN Creatinine 1.21 H Estimated GFR 42 L POC Glucose 219 H Random Glucose Calcium Magnesium Total Bilirubin AST ALT Alkaline Phosphatase Total Protein Albumin 02/05/18 02/05/18 02/05/18 09:35 09:55 09:55 WBC RBC Hgb Hct MCV MCH MCHC RDW Plt Count MPV Neut % (Auto) Lymph % (Auto) [place] % (Auto) Eos % (Auto) Baso % (Auto) Neut # (Auto) Lymph # (Auto) [place] # (Auto) Eos # (Auto) Baso # (Auto) WBC Differential Differential Comment Puncture Site Right radial Patient Temperature 98.6 O2 Saturation 97 ABG pH 7.39 ABG pCO2 33 L ABG pO2 128 H ABG HCO3 19 L ABG O2 Content 17.4 ABG Base Excess -4.7 L ABG Methemoglobin 1.0 [place] Test Present Hemoglobin 12.7 Carboxyhemoglobin 1.1 O2 Delivery Device Ventilator Vent Setting Cpap5/5 Inspired O2 35 Critical Value No Sodium 144 Potassium 3.8 Chloride 113 H Carbon Dioxide 20.8 L Anion Gap 10 BUN 34 H Creatinine 1.13 H Estimated GFR 45 L POC Glucose Random Glucose 197 H Calcium 8.3 L Magnesium 2.1 Total Bilirubin 0.4 AST 29 ALT 20 Alkaline Phosphatase 79 Total Protein 7.0 Albumin 2.3 L 02/05/18 02/05/18 02/05/18 11:22 16:10 19:56 WBC RBC Hgb Hct MCV MCH MCHC RDW Plt Count MPV Neut % (Auto) Lymph % (Auto) [place] % (Auto) Eos % (Auto) Baso % (Auto) Neut # (Auto) Lymph # (Auto) [place] # (Auto) Eos # (Auto) Baso # (Auto) WBC Differential Differential Comment Puncture Site Patient Temperature O2 Saturation ABG pH ABG pCO2 ABG pO2 ABG HCO3 ABG O2 Content ABG Base Excess ABG Methemoglobin [place] Test Hemoglobin Carboxyhemoglobin O2 Delivery Device Vent Setting Inspired O2 Critical Value Sodium Potassium Chloride Carbon Dioxide Anion Gap BUN Creatinine Estimated GFR POC Glucose 226 H 246 H 258 H Random Glucose Calcium Magnesium Total Bilirubin AST ALT Alkaline Phosphatase Total Protein Albumin 02/06/18 02/06/18 02/06/18 00:15 04:21 04:23 WBC 9.7 RBC 3.70 L Hgb 10.6 L Hct 32.5 L MCV 88.0 MCH 28.7 MCHC 32.7 RDW 15.9 Plt Count 229 MPV 10.0 Neut % (Auto) Lymph % (Auto) [place] % (Auto) Eos % (Auto) Baso % (Auto) Neut # (Auto) Lymph # (Auto) [place] # (Auto) Eos # (Auto) Baso # (Auto) WBC Differential Differential Comment Puncture Site Patient Temperature O2 Saturation ABG pH ABG pCO2 ABG pO2 ABG HCO3 ABG O2 Content ABG Base Excess ABG Methemoglobin [place] Test Hemoglobin Carboxyhemoglobin O2 Delivery Device Vent Setting Inspired O2 Critical Value Sodium Potassium Chloride Carbon Dioxide Anion Gap BUN Creatinine Estimated GFR POC Glucose 264 H 212 H Random Glucose Calcium Magnesium Total Bilirubin AST ALT Alkaline Phosphatase Total Protein Albumin 02/06/18 02/06/18 02/06/18 04:23 07:51 12:10 WBC RBC Hgb Hct MCV MCH MCHC RDW Plt Count MPV Neut % (Auto) Lymph % (Auto) [place] % (Auto) Eos % (Auto) Baso % (Auto) Neut # (Auto) Lymph # (Auto) [place] # (Auto) Eos # (Auto) Baso # (Auto) WBC Differential Differential Comment Puncture Site Patient Temperature O2 Saturation ABG pH ABG pCO2 ABG pO2 ABG HCO3 ABG O2 Content ABG Base Excess ABG Methemoglobin [place] Test Hemoglobin Carboxyhemoglobin O2 Delivery Device Vent Setting Inspired O2 Critical Value Sodium 146 H Potassium 4.0 Chloride 113 H Carbon Dioxide 23.6 Anion Gap 9 BUN 34 H Creatinine 1.11 H Estimated GFR 46 L POC Glucose 198 H 212 H Random Glucose 193 H Calcium 8.5 Magnesium 2.4 Total Bilirubin 0.4 AST 32 ALT 20 Alkaline Phosphatase 79 Total Protein 7.3 Albumin 2.5 L 02/06/18 02/06/18 02/06/18 16:43 21:55 23:29 WBC RBC Hgb Hct MCV MCH MCHC RDW Plt Count MPV Neut % (Auto) Lymph % (Auto) [place] % (Auto) Eos % (Auto) Baso % (Auto) Neut # (Auto) Lymph # (Auto) [place] # (Auto) Eos # (Auto) Baso # (Auto) WBC Differential Differential Comment Puncture Site Patient Temperature O2 Saturation ABG pH ABG pCO2 ABG pO2 ABG HCO3 ABG O2 Content ABG Base Excess ABG Methemoglobin [place] Test Hemoglobin Carboxyhemoglobin O2 Delivery Device Vent Setting Inspired O2 Critical Value Sodium Potassium Chloride Carbon Dioxide Anion Gap BUN Creatinine Estimated GFR POC Glucose 203 H 196 H 187 H Random Glucose Calcium Magnesium Total Bilirubin AST ALT Alkaline Phosphatase Total Protein Albumin 02/07/18 02/07/18 02/07/18 04:47 04:47 09:16 WBC 9.1 RBC 3.49 L Hgb 10.1 L Hct 30.6 L MCV 87.8 MCH 28.9 MCHC 32.9 RDW 15.6 Plt Count 272 MPV 10.0 Neut % (Auto) Lymph % (Auto) [place] % (Auto) Eos % (Auto) Baso % (Auto) Neut # (Auto) Lymph # (Auto) [place] # (Auto) Eos # (Auto) Baso # (Auto) WBC Differential Differential Comment Puncture Site Patient Temperature O2 Saturation ABG pH ABG pCO2 ABG pO2 ABG HCO3 ABG O2 Content ABG Base Excess ABG Methemoglobin [place] Test Hemoglobin Carboxyhemoglobin O2 Delivery Device Vent Setting Inspired O2 Critical Value Sodium 147 H Potassium 3.7 Chloride 114 H Carbon Dioxide 22.6 Anion Gap 10 BUN 38 H Creatinine 1.17 H Estimated GFR 44 L POC Glucose 202 H Random Glucose 168 H Calcium 8.5 Magnesium Total Bilirubin 0.5 AST 29 ALT 19 Alkaline Phosphatase 73 Total Protein 7.2 Albumin 2.6 L 02/07/18 12:23 WBC RBC Hgb Hct MCV MCH MCHC RDW Plt Count MPV Neut % (Auto) Lymph % (Auto) [place] % (Auto) Eos % (Auto) Baso % (Auto) Neut # (Auto) Lymph # (Auto) [place] # (Auto) Eos # (Auto) Baso # (Auto) WBC Differential Differential Comment Puncture Site Patient Temperature O2 Saturation ABG pH ABG pCO2 ABG pO2 ABG HCO3 ABG O2 Content ABG Base Excess ABG Methemoglobin [place] Test Hemoglobin Carboxyhemoglobin O2 Delivery Device Vent Setting Inspired O2 Critical Value Sodium Potassium Chloride Carbon Dioxide Anion Gap BUN Creatinine Estimated GFR POC Glucose 224 H Random Glucose Calcium Magnesium Total Bilirubin AST ALT Alkaline Phosphatase Total Protein Albumin Result Diagrams: 02/07/18 04:47 02/07/18 04:47 Microbiology: Microbiology 02/03/18 02:37 Aerobic Blood Culture - Preliminary Blood - Peripheral No growth in 4 days Anaerobic Blood Culture - Preliminary No growth in 4 days 02/02/18 23:05 Aerobic Blood Culture - Final Blood - Peripheral No growth in 5 days Anaerobic Blood Culture - Final QNS - See aerobic report. 01/31/18 21:38 Aerobic Blood Culture - Final Blood - Peripheral No growth in 5 days Anaerobic Blood Culture - Final No growth in 5 days 01/31/18 21:43 Aerobic Blood Culture - Final Blood - Peripheral No growth in 5 days Anaerobic Blood Culture - Final No growth in 5 days 02/02/18 12:45 Gram Stain - Final Sputum - Endotracheal Sputum Culture - Final Moderate growth normal respiratory yue 02/02/18 09:00 Urine Culture - Final Clean Catch Urine Escherichia coli ESBL positive Multidrug Resistant Imaging: Chest X-Ray 01/31/18 02:15 CONCLUSION: No significant change mild left base atelectasis. Otherwise within normal limits. Abdomen/Bladder Ultrasound 02/02/18 00:00 CONCLUSION: 1. Increased renal echogenicity typical of chronic parenchymal changes. 2. No evidence of acute obstructive uropathy. 3. Small bilateral benign-appearing cysts. Abdomen/Pelvis CT 02/02/18 00:00 CONCLUSION: 1. No acute abnormalities are seen in the abdomen or pelvis. 2. Mildly atrophic left kidney with vascular calcifications. 3. Aortoiliac atherosclerosis. No aneurysm. 4. Cholelithiasis. 5. Bilateral small pleural effusions and mild to moderate basilar atelectasis. 6. Coronary artery calcification. 7. Nonspecific mass of the visualized left breast. Last mammogram in our system was 2012. Up-to-date bilateral mammography with a diagnostic left breast mammogram recommended. Chest X-Ray 02/02/18 00:00 CONCLUSION: Worsening aeration Chest X-Ray 02/02/18 00:00 CONCLUSION: 1. Endotracheal tube and nasogastric tube in place. 2. Slight increase in hazy opacity at the right lung base. Patchy opacity left lung base partially visualized. Chest X-Ray 02/03/18 00:00 CONCLUSION: Endotracheal tube tip is a bit deep Improving aeration Chest X-Ray 02/04/18 10:43 CONCLUSION: Minimal left basilar density and probable small pleural effusion. Chest X-Ray 02/05/18 08:20 CONCLUSION: No acute cardiopulmonary disease. Chest X-Ray 02/06/18 06:00 CONCLUSION: Interval extubation. Stable aeration. Procedures: 02/02: Intubation 02/05: Extubation . Assessment and Plan - Disease Oriented Problem List (1) Non-ST elevated myocardial infarction (non-STEMI) (2) Acute kidney injury (3) Type 2 diabetes mellitus (4) Acute hypoxemic respiratory failure (5) Pulmonary edema cardiac cause (6) Acute myocardial infarction (7) Atrial fibrillation (8) Cardiogenic shock Pertinent Non-Medical Issues: Psychosocial: She was born in [facility] and lived there most of her life. She was however her passed in 1983. She moved to [place] in the early . 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 She has 1 son. Spiritual: [employer] Dig[employer] available. Legal: Living will on the chart with healthcare surrogate. Ethical issues impacting care: None noted. . Important Contacts: Granddaughter: Treva Arvizu Son: Vicky Arvizu . Prognosis: Her prognosis is guarded. She is of advanced age at 87 and showing signs of decline. In addition to renal insufficiency she has multiple cardiac risk factors to include hypertension, hyperlipidemia, obesity with BMI 30.8 kg/m, uncontrolled diabetes with a hemoglobin A1c greater than 9 and evidence of at minimum a non-STEMI. Cardiac catheterization per the registered nurse fetal report would be a high risk/"heroic" procedure. She is also febrile with no known source of infection. Urinalysis has been negative on 01/29 and 01/31, influenza is negative and blood cultures are negative times 1 day. Empiric antibiotic coverage is being initiated as cultures are pending. She is at increased risk of continued hospitalizations, complications and decline. . Code Status: Full Code Plan: PLAN: Legal decision maker: Patient at this time is confused and not capacitated for decision-making. It is uncertain if she will regain capacity. Living will and healthcare surrogate on the chart name her granddaughter Treva and Treva's brother Gonzalez as joint healthcare surrogate's. Gonzalez is a member of the [employer] currently guarding the president and unavailable. Goals: Aggressive, healthcare surrogate wishes to continue available treatments to help patient towards as full of recovery as possible CODE STATUS: FULL CODE SYMPTOMS: * Confusion: She remains confused with short-term memory loss. She is oriented to self and place, remembers family but confuses family members names. Family is hoping that this recovers with resolution of the UTI, but there is concerned that she will not be able to live on her own again. Family plans to place patient in rehab after cleared medically. * Weakness: Multifactorial to include advanced age, sedentary behavior, progressive weakness, critical illness, urinary tract infection. Generally weak , requiring 2 man assist to ambulate from bed to bathroom or pivot from bed to BSC. Undergoing OT, PT. Family planning on rehab placement when stable. Palliative care will continue to follow the patient during hospital course as condition evolves, to assist patient/decision-maker with understanding of their medical conditions, weighing benefits/burdens of treatment options, for clarification of goals of treatment. Additionally will assist with any symptoms of palliative concern. . Attestation Attestation: To help prompt me to consider important information that might be impacting today's encounter and assessment, information from prior notes written by myself or my colleagues may have been "brought forward" into today's note. My signature on this note, however, is an attestation that I personally performed the exam, history, and/or decision-making noted today, and, unless otherwise indicated, the interactions with patient, family, and staff as well as the review of records all occurred today. I also attest that the listed assessment and stated plan reflect my best clinical judgment today based on the combination of historical information, prior notes, and today's exam/ interactions. When time spent is documented, it refers only to time spent today by the signer, or if indicated, combined time spent today by collaborating physician/nurse practitioner. .
--- NOTE | 2018-02-07 23:09 | P.PNCA ---
Subjective Interval history: No complaints other than tired Seems to wax and wane, mostly oriented, but appears to "sun down" at night Medications and Allergies Active Medications: Active Medications Acetaminophen (Tylenol) 500 mg PO Q4H PRN PRN Reason: FEVER > 100.4 F Last Admin: 02/03/18 22:56 Dose: 500 mg Al Hydroxide/Mg Hydroxide (Milk Of Nita Liq) 30 ml PO Q12H PRN PRN Reason: Mild Constipation Albuterol (Duoneb Neb (Prn)) 1 ampul NEB Q2HR NEB PRN PRN Reason: SHORTNESS OF BREATH Alprazolam (Xanax) 0.5 mg PO Q8H PRN PRN Reason: ANXIETY Last Admin: 02/02/18 05:26 Dose: 0.5 mg Alprazolam (Xanax) 0.5 mg PO Q8H PRN PRN Reason: ANXIETY Aspirin (Ecotrin) 81 mg PO DAILY [facility] Last Admin: 02/07/18 09:44 Dose: 81 mg Atorvastatin Calcium (Lipitor) 40 mg PO HS [facility] Last Admin: 02/07/18 20:09 Dose: 40 mg Bisacodyl (Dulcolax Supp) 10 mg RECTAL DAILY PRN PRN Reason: SEVERE CONSITIPATION Chlorhexidine Gluconate (Peridex 0.12% Oral Kit) 15 ml OROPHARYNG BID@0800, 2000 [facility] Last Admin: 02/07/18 20:08 Dose: Not Given Clopidogrel Bisulfate (Plavix) 75 mg PO DAILY [facility] Last Admin: 02/07/18 09:45 Dose: 75 mg Dextrose (D50w Vial) 50 ml IV.PUSH UNSCH PRN PRN Reason: PER HYPOGLYCEMIA PROTOCOL Famotidine (Pepcid Pf Inj) 10 mg IV.PUSH Q12HR [facility] Last Admin: 02/07/18 20:08 Dose: 10 mg Glucagon (Glucagon Inj) 1 mg OTHER PRN PRN PRN Reason: for Hypoglycemia Protocol Heparin Sodium (Porcine) (Heparin Inj) 5,000 units SQ Q8HR [facility] Last Admin: 02/07/18 21:27 Dose: 5,000 units Ertapenem 1,000 mg/ Sodium (Chloride) 100 mls @ 200 mls/hr IV.SIG Q24H [facility] Last Infusion: 02/07/18 13:00 Dose: Infused Insulin Aspart (Novolog Insulin Correctional Sugar Inj) 0 unit SQ Q4HR [facility]; Protocol Last Admin: 02/07/18 20:07 Dose: 4 unit Lactulose (Lactulose Liq) 30 ml PO DAILY PRN PRN Reason: SEVERE CONSITIPATION Metoprolol Tartrate (Lopressor) 25 mg PO TID [facility] Last Admin: 02/07/18 17:35 Dose: 25 mg Miscellaneous (Pill Splitter) 1 each OTHER UNSCH PRN PRN Reason: SEE LABEL COMMENTS Miscellaneous Medication () 1 each OROPHARYNG 0000,0400,1200,1600 [facility] Last Admin: 02/07/18 17:30 Dose: Not Given Nitroglycerin (Nitro-Bid 2% Oint) 0.5 inch TOPICAL Q6HR [facility] Last Admin: 02/07/18 17:34 Dose: 0.5 inch Sennosides (Senokot) 17.2 mg PO Q12H PRN PRN Reason: Moderate Constipation Sodium Chloride (Ns Flush) 2 ml IV.FLUSH BID [facility] Last Admin: 02/07/18 20:09 Dose: Not Given Sodium Chloride (Ns Flush) 2 ml IV.FLUSH UNSCH PRN PRN Reason: FLUSH AFTER USING IV ACCESS Spironolactone (Aldactone) 50 mg PO BID@0900,1800 [facility] Last Admin: 02/07/18 17:35 Dose: 50 mg Tramadol HCl (Ultram) 50 mg PO Q6H PRN PRN Reason: Pain 1-10 Last Admin: 02/02/18 05:25 Dose: 50 mg Whey (Beneprotein Powder) 1 packet G-TUBE TID [facility] Last Admin: 02/07/18 17:50 Dose: 1 packet Allergies Allergy/AdvReac Type Severity Reaction Status Date / Time penicillin G Allergy Severe UNKNOWN Verified 01/31/18 02:06 Sulfa (Sulfonamide Allergy Severe UNKNOWN Verified 01/31/18 02:06 Antibiotics) ciprofloxacin AdvReac unknown Verified 02/03/18 11:14 Home Medications Medication Instructions Recorded Confirmed Type alprazolam 0.5 mg PO Q8HR PRN 01/31/18 01/31/18 History tramadol 50 mg PO Q6H PRN 01/31/18 01/31/18 History Physical Exam Vital signs: Vital Signs 02/06/18 23:26 02/07/18 00:00 02/07/18 01:00 Temperature 98.2 F Pulse Rate 96 H 87 92 H Respiratory Rate 32 H 20 19 Blood Pressure 147/83 H 160/77 H 156/73 H Pulse Oximetry 91 L 98 96 02/07/18 02:00 02/07/18 03:00 02/07/18 04:00 Temperature 98.3 F Pulse Rate 98 H 107 H 90 Respiratory Rate 27 H 25 H 18 Blood Pressure 160/73 H 162/96 H 158/75 H Pulse Oximetry 97 92 L 97 02/07/18 05:00 02/07/18 06:00 02/07/18 07:00 Temperature Pulse Rate 105 H 94 H 104 H Respiratory Rate 23 34 H 28 H Blood Pressure 152/73 H 154/78 H 159/66 H Pulse Oximetry 92 L 99 98 02/07/18 08:00 02/07/18 09:12 02/07/18 09:16 Temperature 98.4 F Pulse Rate 94 H 114 H 99 H Respiratory Rate 36 H 25 H Blood Pressure 152/79 H 148/78 H Pulse Oximetry 97 95 02/07/18 10:00 02/07/18 11:00 02/07/18 12:00 Temperature Pulse Rate 90 85 92 H Respiratory Rate 29 H 18 21 Blood Pressure 145/100 H 132/58 L 148/65 H Pulse Oximetry 85 L 97 84 L 02/07/18 13:00 02/07/18 13:46 02/07/18 14:00 Temperature Pulse Rate 93 H 93 H Respiratory Rate 30 H 27 H Blood Pressure 138/62 134/67 Pulse Oximetry 95 02/07/18 14:02 02/07/18 16:52 02/07/18 17:00 Temperature 98 F Pulse Rate 90 90 Respiratory Rate 26 H 31 H Blood Pressure 115/58 L Pulse Oximetry 95 93 L 02/07/18 17:14 02/07/18 17:30 02/07/18 18:00 Temperature Pulse Rate 94 H 98 H 90 Respiratory Rate 28 H 33 H 33 H Blood Pressure 133/62 131/65 165/69 H Pulse Oximetry 90 L 92 L 92 L 02/07/18 18:30 02/07/18 19:00 02/07/18 19:30 Temperature Pulse Rate 86 86 89 Respiratory Rate 27 H 27 H 28 H Blood Pressure 129/82 119/79 133/61 Pulse Oximetry 98 97 98 02/07/18 20:00 02/07/18 20:30 02/07/18 21:00 Temperature 98.1 F Pulse Rate 90 90 87 Respiratory Rate 25 H 32 H 48 H Blood Pressure 136/63 153/67 H 124/75 Pulse Oximetry 98 97 95 02/07/18 21:30 02/07/18 22:00 Temperature Pulse Rate 91 H 84 Respiratory Rate 21 31 H Blood Pressure 137/65 134/68 Pulse Oximetry 96 97 Intake & Output 02/07/18 02/07/18 02/08/18 06:59 18:59 06:59 Intake Total 1430 / 1430 Balance 1430 / 1430 Intake: IV 1250 / 1250 INVanz Inj 1,000 MG In NS Inj 200 / 200 100 ML @ 200 mls/hr IV.SIG Q24H [facility] Rx#:[id number] Oral 180 / 180 Other: # Voids 6 # Incontinent Voids 3 0 Date of Last Bowel Movement 02/06/18 02/07/18 02/07/18 # Bowel Movements 4 Narrative: GENERAL: NAD SKIN: Cool and dry HEAD: Atraumatic. Normocephalic. EYES: Pupils equal and round. No scleral icterus. No injection or drainage. ENT: No nasal bleeding or discharge. Mucous membranes pink and moist. NECK: Trachea midline. No JVD. CARDIOVASCULAR: Irregularly irregular RESPIRATORY: No accessory muscle use. GASTROINTESTINAL: Abdomen soft, non-tender, nondistended. Hepatic and splenic margins not palpable. MUSCULOSKELETAL: Extremities without clubbing, cyanosis, or edema. No obvious deformities. NEUROLOGICAL: No focal deficits - Urinary Catheter Management Indwelling Temp Sensing Catheter Cath placed during this visit: no Urethral indwelling: Yes Reason for continuing: Hourly intake/output Results 02/07/18 04:47 02/07/18 04:47 Cardiac Enzymes 02/06/18 02/07/18 Range/Units 04:23 04:47 AST 32 29 (15-37) U/L CBC 02/06/18 02/07/18 Range/Units 04:23 04:47 WBC 9.7 9.1 (4.0-11.0) th/mm3 RBC 3.70 L 3.49 L (4.00-5.30) mil/mm3 Hgb 10.6 L 10.1 L (11.6-15.3) gm/dL Hct 32.5 L 30.6 L (35.0-46.0) % Plt Count 229 272 (150-450) th/mm3 Comprehensive Metabolic Panel 02/06/18 02/07/18 Range/Units 04:23 04:47 Sodium 146 H 147 H (136-145) meq/L Potassium 4.0 3.7 (3.5-5.1) meq/L Chloride 113 H 114 H (98-107) meq/L Carbon Dioxide 23.6 22.6 (21.0-32.0) meq/L BUN 34 H 38 H (7-18) mg/dL Creatinine 1.11 H 1.17 H (0.50-1.00) mg/dL Calcium 8.5 8.5 (8.5-10.1) mg/dL AST 32 29 (15-37) U/L ALT 20 19 (10-53) U/L Alkaline Phosphatase 79 73 (45-117) U/L Total Protein 7.3 7.2 (6.4-8.2) g/dL Albumin 2.5 L 2.6 L (3.4-5.0) g/dL Intake and Output 02/07/18 02/07/18 02/08/18 14:59 22:59 06:59 Intake Total 1250 / 1250 180 / 180 Balance 1250 / 1250 180 / 180 Intake: IV 1250 / 1250 INVanz Inj 1,000 MG In NS Inj 200 / 200 100 ML @ 200 mls/hr IV.SIG Q24H [facility] Rx#:[id number] Oral 180 / 180 Other: # Voids 6 # Incontinent Voids 0 Date of Last Bowel Movement 02/06/18 02/07/18 # Bowel Movements 4 - Imaging and Cardiology Imaging: Impressions Chest X-Ray 02/06/18 06:00 CONCLUSION: Interval extubation. Stable aeration. Assessment and Plan - Assessment (1) Frail elderly Code(s): R54 - Age-related physical debility Status: Acute (2) Acute myocardial infarction Code(s): I21.9 - Acute myocardial infarction, unspecified Status: Acute (3) Febrile illness Code(s): R50.9 - Fever, unspecified Status: Acute (4) Acute kidney injury Code(s): N17.9 - Acute kidney failure, unspecified Status: Acute (5) Atrial fibrillation Code(s): I48.91 - Unspecified atrial fibrillation Status: Acute (6) Cardiogenic shock Code(s): R57.0 - Cardiogenic shock Status: Acute (7) Acute hypoxemic respiratory failure Code(s): J96.01 - Acute respiratory failure with hypoxia Status: Acute (8) Pulmonary edema cardiac cause Code(s): I50.1 - Left ventricular failure, unspecified Status: Acute (9) Acute myocardial infarction Code(s): I21.9 - Acute myocardial infarction, unspecified Status: Acute - Plan 1) Acute myocardial infarction anteriorly 2) Cardiogenic shock 3) NSVT 4) LOLIS Plan: 1) Diuresed well 2) Extubated 3) ASA/Plavix for PCI 4) Con't Spironolactone 5) Repeat echo showing better function, EF 30-35% 6) Will need to discuss with family about anticoagulation for AFib Combination of antiplatelet and anticoagulation on discharge Concern for current state, will need to see if [facility] anti-coagulation candidate
[2018-02-08] MEDS: Oral Hygiene Kit OROPHARYNG SCH ×4 (00:05→17:09)
[2018-02-08] MEDS: Insulin NovoLOG Aspart Correctional Sugar Inj SQ SCH ×6 (03:30→23:14)
[2018-02-08] MEDS: Heparin - SQ 10,000 UNITS/ML Vial SQ SCH ×3 (05:51→23:00)
[2018-02-08] MEDS: Chlorhexidine 0.12% Oral Kit 15 ML UDC OROPHARYNG SCH ×2 (07:44→22:44)
[2018-02-08] MEDS: Metoprolol Tartrate 25 MG Tablet PO SCH ×3 (08:07→17:10)
[2018-02-08] MEDS: Beneprotein Powder Packet G-TUBE SCH ×3 (08:08→22:43)
[2018-02-08] MEDS: ALPRAZolam 0.5 MG Tablet PO PRN ×2 (08:09→15:07)
[2018-02-08] MEDS: Spironolactone 25 MG Tablet PO SCH ×2 (08:14→17:10)
[2018-02-08] MEDS: Famotidine PF Inj 20 MG/2 ML Vial IV.PUSH SCH ×2 (08:14→23:01)
--- NOTE | 2018-02-08 11:09 | P.PN ---
Subjective Interval history: Follow-up acute respiratory failure/non-ST elevation LA/cardiogenic shock February 07, 2018-patient seen and examined; she is alert and oriented x2. 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 Vital stable. Case discussed with RN as well as correctional case manager. February 08, 2018-patient seen and examined; stable this AM, not take much of PO liquid. Afebrile Physical Exam Vital signs: Vital Signs 02/07/18 12:00 02/07/18 13:00 02/07/18 13:46 Temperature Pulse Rate 92 H 93 H 93 H Respiratory Rate 21 30 H 27 H Blood Pressure 148/65 H 138/62 Pulse Oximetry 84 L 95 02/07/18 14:00 02/07/18 14:02 02/07/18 16:52 Temperature 98 F Pulse Rate 90 Respiratory Rate 26 H Blood Pressure 134/67 115/58 L Pulse Oximetry 95 02/07/18 17:00 02/07/18 17:14 02/07/18 17:30 Temperature Pulse Rate 90 94 H 98 H Respiratory Rate 31 H 28 H 33 H Blood Pressure 133/62 131/65 Pulse Oximetry 93 L 90 L 92 L 02/07/18 18:00 02/07/18 18:30 02/07/18 19:00 Temperature Pulse Rate 90 86 86 Respiratory Rate 33 H 27 H 27 H Blood Pressure 165/69 H 129/82 119/79 Pulse Oximetry 92 L 98 97 02/07/18 19:30 02/07/18 20:00 02/07/18 20:30 Temperature 98.1 F Pulse Rate 89 90 90 Respiratory Rate 28 H 25 H 32 H Blood Pressure 133/61 136/63 153/67 H Pulse Oximetry 98 98 97 02/07/18 21:00 02/07/18 21:30 02/07/18 22:00 Temperature Pulse Rate 87 91 H 84 Respiratory Rate 48 H 21 31 H Blood Pressure 124/75 137/65 134/68 Pulse Oximetry 95 96 97 02/07/18 22:30 02/07/18 23:00 02/07/18 23:04 Temperature Pulse Rate 85 83 80 Respiratory Rate 34 H 20 20 Blood Pressure 131/99 H 138/63 Pulse Oximetry 96 95 96 02/08/18 00:00 02/08/18 00:04 02/08/18 01:00 Temperature Pulse Rate 82 91 H 83 Respiratory Rate 19 28 H 19 Blood Pressure 130/80 Pulse Oximetry 98 98 97 02/08/18 01:04 02/08/18 02:00 02/08/18 02:04 Temperature Pulse Rate 77 82 82 Respiratory Rate 20 18 18 Blood Pressure 149/67 H 143/69 H Pulse Oximetry 97 98 98 02/08/18 03:00 02/08/18 03:04 02/08/18 04:00 Temperature 98.0 F Pulse Rate 91 H 84 83 Respiratory Rate 29 H 26 H 18 Blood Pressure 144/80 H 144/80 H 144/69 H Pulse Oximetry 99 99 97 02/08/18 04:04 02/08/18 05:00 02/08/18 05:04 Temperature Pulse Rate 83 85 87 Respiratory Rate 20 19 18 Blood Pressure 144/69 H 133/67 Pulse Oximetry 98 98 98 02/08/18 06:00 02/08/18 06:04 02/08/18 07:00 Temperature Pulse Rate 85 91 H 96 H Respiratory Rate 32 H 22 33 H Blood Pressure 138/67 Pulse Oximetry 99 97 99 02/08/18 07:04 02/08/18 09:20 Temperature 98.4 F Pulse Rate 90 Respiratory Rate 18 Blood Pressure 147/68 H Pulse Oximetry 98 100 Intake & Output 02/07/18 02/08/18 02/08/18 18:59 06:59 18:59 Intake Total 1430 / 1430 472 / 472 Output Total 800 / 800 Balance 1430 / 1430 -328 / -328 Weight 87.1 kg Intake: IV 1250 / 1250 INVanz Inj 1,000 MG In NS Inj 200 / 200 100 ML @ 200 mls/hr IV.SIG Q24H [facility] Rx#:[id number] Oral 180 / 180 330 / 330 Tube Feeding Tube Irrigant 60 / 60 Water Bolus Amount 60 / 60 Output: Urine 600 / 600 Gastric Drainage 200 / 200 Orogastric Tube 200 / 200 Other: # Voids 6 6 # Incontinent Voids 0 2 # Urine Diapers 2 Date of Last Bowel Movement 02/07/18 02/07/18 02/07/18 # Bowel Movements 4 4 # Incontinent Bowel Movements 1 Narrative: GENERAL: NAD SKIN: Cool and dry HEAD: Atraumatic. Normocephalic. EYES: Pupils equal and round. No scleral icterus. No injection or drainage. ENT: No nasal bleeding or discharge. Mucous membranes pink and moist. NECK: Trachea midline. No JVD. CARDIOVASCULAR: Irregularly irregular RESPIRATORY: No accessory muscle use. GASTROINTESTINAL: Abdomen soft, non-tender, nondistended. Hepatic and splenic margins not palpable. MUSCULOSKELETAL: Extremities without clubbing, cyanosis, or edema. No obvious deformities. NEUROLOGICAL: No focal deficits - Urinary Catheter Management Indwelling Temp Sensing Catheter Cath placed during this visit: no Urethral indwelling: Yes Reason for continuing: Hourly intake/output Results - Labs CBC & Chem 7: 02/07/18 04:47 02/07/18 04:47 Laboratory Results - last 24 hr 02/07/18 02/07/18 02/07/18 12:23 17:37 19:36 POC Glucose 224 H 230 H 205 H 02/08/18 02/08/18 02/08/18 00:01 03:25 07:30 POC Glucose 103 140 H 185 H Microbiology 02/03/18 02:37 Blood - Peripheral Aerobic Blood Culture - Final No growth in 5 days 02/03/18 02:37 Blood - Peripheral Anaerobic Blood Culture - Final No growth in 5 days 02/02/18 23:05 Blood - Peripheral Aerobic Blood Culture - Final No growth in 5 days 02/02/18 23:05 Blood - Peripheral Anaerobic Blood Culture - Final QNS - See aerobic report. Assessment and Plan - Plan 87-year-old female with: Acute hypoxemic respiratory failure-resolved -Maintain oxygen saturation above 92% -DuoNeb every hours as needed, EzPAP Acute myocardial infarction -Continue antiplatelet therapy (ASA, Plavix) -Status post PCI with LAD stent (LUZMARIA) 02/03/[address] Peralta -Aldactone 50 mg twice daily -Management per cardiology Ischemic cardiomyopathy -Continue beta-blockers metoprolol 25 mg p.o. 3 times daily -Repeat echo February 06, 2018 with EF of 30% Atrial fibrillation -Currently rate controlled -Continue metoprolol 25 three times daily -Currently on DAPT and subcu heparin, if A. fib persists may need full anticoagulation -Cardiology to discuss with family for possible starting oral anticoagulation versus others Hyperlipidemia -On Statin Acute kidney injury-resolved -Avoid nephrotoxins -Nephrology signed off Diabetes mellitus, poorly controlled -Currently on Medium correction sliding scale insulin protocol UTI , ESBL + organism -Currently on ertapenem and monitor culture report -Management per ID Start NS @42cc/ml Prophylaxis -Heparin sq -Pepcid -PT/OT Transfer to CICU
[2018-02-08] MEDS: Sod Chloride 0.9% Inj 1,000 ML IV.CONT SCH (12:35)
--- NOTE | 2018-02-08 12:36 | P.PNCA ---
Subjective Interval history: No events overnight Stable Medications and Allergies Active Medications: Active Medications Acetaminophen (Tylenol) 500 mg PO Q4H PRN PRN Reason: FEVER > 100.4 F Last Admin: 02/03/18 22:56 Dose: 500 mg Al Hydroxide/Mg Hydroxide (Milk Of Magnpiper Liq) 30 ml PO Q12H PRN PRN Reason: Mild Constipation Albuterol (Duoneb Neb (Prn)) 1 ampul NEB Q2HR NEB PRN PRN Reason: SHORTNESS OF BREATH Alprazolam (Xanax) 0.5 mg PO Q8H PRN PRN Reason: ANXIETY Last Admin: 02/02/18 05:26 Dose: 0.5 mg Alprazolam (Xanax) 0.5 mg PO Q8H PRN PRN Reason: ANXIETY Last Admin: 02/08/18 08:09 Dose: 0.5 mg Aspirin (Ecotrin) 81 mg PO DAILY [facility] Last Admin: 02/08/18 08:07 Dose: 81 mg Atorvastatin Calcium (Lipitor) 40 mg PO HS [facility] Last Admin: 02/07/18 20:09 Dose: 40 mg Bisacodyl (Dulcolax Supp) 10 mg RECTAL DAILY PRN PRN Reason: SEVERE CONSITIPATION Chlorhexidine Gluconate (Peridex 0.12% Oral Kit) 15 ml OROPHARYNG BID@0800, 2000 [facility] Last Admin: 02/08/18 07:44 Dose: Not Given Clopidogrel Bisulfate (Plavix) 75 mg PO DAILY [facility] Last Admin: 02/08/18 08:07 Dose: 75 mg Dextrose (D50w Vial) 50 ml IV.PUSH UNSCH PRN PRN Reason: PER HYPOGLYCEMIA PROTOCOL Famotidine (Pepcid Pf Inj) 10 mg IV.PUSH Q12HR [facility] Last Admin: 02/08/18 08:14 Dose: 10 mg Glucagon (Glucagon Inj) 1 mg OTHER PRN PRN PRN Reason: for Hypoglycemia Protocol Heparin Sodium (Porcine) (Heparin Inj) 5,000 units SQ Q8HR [facility] Last Admin: 02/08/18 05:51 Dose: 5,000 units Ertapenem 1,000 mg/ Sodium (Chloride) 100 mls @ 200 mls/hr IV.SIG Q24H [facility] Last Infusion: 02/07/18 13:00 Dose: Infused Sodium Chloride (Ns Inj) 1,000 mls @ 42 mls/hr IV.CONT .[id number] [facility] Insulin Aspart (Novolog Insulin Correctional Sugar Inj) 0 unit SQ Q4HR [facility]; Protocol Last Admin: 02/08/18 08:13 Dose: 2 unit Lactulose (Lactulose Liq) 30 ml PO DAILY PRN PRN Reason: SEVERE CONSITIPATION Metoprolol Tartrate (Lopressor) 25 mg PO TID [facility] Last Admin: 02/08/18 08:07 Dose: 25 mg Miscellaneous (Pill Splitter) 1 each OTHER UNSCH PRN PRN Reason: SEE LABEL COMMENTS Miscellaneous Medication () 1 each OROPHARYNG 0000,0400,1200,1600 [facility] Last Admin: 02/08/18 04:29 Dose: Not Given Nitroglycerin (Nitro-Bid 2% Oint) 0.5 inch TOPICAL Q6HR [facility] Last Admin: 02/08/18 05:50 Dose: 0.5 inch Sennosides (Senokot) 17.2 mg PO Q12H PRN PRN Reason: Moderate Constipation Sodium Chloride (Ns Flush) 2 ml IV.FLUSH BID [facility] Last Admin: 02/08/18 08:14 Dose: 2 ml Sodium Chloride (Ns Flush) 2 ml IV.FLUSH UNSCH PRN PRN Reason: FLUSH AFTER USING IV ACCESS Spironolactone (Aldactone) 50 mg PO BID@0900,1800 [facility] Last Admin: 02/08/18 08:14 Dose: 50 mg Tramadol HCl (Ultram) 50 mg PO Q6H PRN PRN Reason: Pain 1-10 Last Admin: 02/02/18 05:25 Dose: 50 mg Whey (Beneprotein Powder) 1 packet G-TUBE TID [facility] Last Admin: 02/08/18 08:08 Dose: 1 packet Allergies Allergy/AdvReac Type Severity Reaction Status Date / Time penicillin G Allergy Severe UNKNOWN Verified 01/31/18 02:06 Sulfa (Sulfonamide Allergy Severe UNKNOWN Verified 01/31/18 02:06 Antibiotics) ciprofloxacin AdvReac unknown Verified 02/03/18 11:14 Home Medications Medication Instructions Recorded Confirmed Type alprazolam 0.5 mg PO Q8HR PRN 01/31/18 01/31/18 History tramadol 50 mg PO Q6H PRN 01/31/18 01/31/18 History Physical Exam Vital signs: Vital Signs 02/07/18 13:00 02/07/18 13:46 02/07/18 14:00 Temperature Pulse Rate 93 H 93 H Respiratory Rate 30 H 27 H Blood Pressure 138/62 134/67 Pulse Oximetry 95 02/07/18 14:02 02/07/18 16:52 02/07/18 17:00 Temperature 98 F Pulse Rate 90 90 Respiratory Rate 26 H 31 H Blood Pressure 115/58 L Pulse Oximetry 95 93 L 02/07/18 17:14 02/07/18 17:30 02/07/18 18:00 Temperature Pulse Rate 94 H 98 H 90 Respiratory Rate 28 H 33 H 33 H Blood Pressure 133/62 131/65 165/69 H Pulse Oximetry 90 L 92 L 92 L 02/07/18 18:30 02/07/18 19:00 02/07/18 19:30 Temperature Pulse Rate 86 86 89 Respiratory Rate 27 H 27 H 28 H Blood Pressure 129/82 119/79 133/61 Pulse Oximetry 98 97 98 02/07/18 20:00 02/07/18 20:30 02/07/18 21:00 Temperature 98.1 F Pulse Rate 90 90 87 Respiratory Rate 25 H 32 H 48 H Blood Pressure 136/63 153/67 H 124/75 Pulse Oximetry 98 97 95 02/07/18 21:30 02/07/18 22:00 02/07/18 22:30 Temperature Pulse Rate 91 H 84 85 Respiratory Rate 21 31 H 34 H Blood Pressure 137/65 134/68 131/99 H Pulse Oximetry 96 97 96 02/07/18 23:00 02/07/18 23:04 02/08/18 00:00 Temperature Pulse Rate 83 80 82 Respiratory Rate 20 20 19 Blood Pressure 138/63 Pulse Oximetry 95 96 98 02/08/18 00:04 02/08/18 01:00 02/08/18 01:04 Temperature Pulse Rate 91 H 83 77 Respiratory Rate 28 H 19 20 Blood Pressure 130/80 149/67 H Pulse Oximetry 98 97 97 02/08/18 02:00 02/08/18 02:04 02/08/18 03:00 Temperature Pulse Rate 82 82 91 H Respiratory Rate 18 18 29 H Blood Pressure 143/69 H 144/80 H Pulse Oximetry 98 98 99 02/08/18 03:04 02/08/18 04:00 02/08/18 04:04 Temperature 98.0 F Pulse Rate 84 83 83 Respiratory Rate 26 H 18 20 Blood Pressure 144/80 H 144/69 H 144/69 H Pulse Oximetry 99 97 98 02/08/18 05:00 02/08/18 05:04 02/08/18 06:00 Temperature Pulse Rate 85 87 85 Respiratory Rate 19 18 32 H Blood Pressure 133/67 Pulse Oximetry 98 98 99 02/08/18 06:04 02/08/18 07:00 02/08/18 07:04 Temperature 98.4 F Pulse Rate 91 H 96 H 90 Respiratory Rate 22 33 H 18 Blood Pressure 138/67 147/68 H Pulse Oximetry 97 99 98 02/08/18 08:00 02/08/18 08:04 02/08/18 09:00 Temperature 98.4 F Pulse Rate 98 H 97 H 92 H Respiratory Rate 28 H 26 H 23 Blood Pressure 125/61 125/61 Pulse Oximetry 93 L 94 L 96 02/08/18 09:04 02/08/18 09:20 02/08/18 10:00 Temperature Pulse Rate 91 H 84 Respiratory Rate 27 H 16 Blood Pressure 148/64 H Pulse Oximetry 98 100 91 L 02/08/18 10:04 02/08/18 11:00 02/08/18 11:04 Temperature Pulse Rate 83 83 85 Respiratory Rate 16 30 H 31 H Blood Pressure 131/55 L 121/84 Pulse Oximetry 96 94 L 02/08/18 12:00 02/08/18 12:04 Temperature 98.2 F Pulse Rate 81 83 Respiratory Rate 24 23 Blood Pressure 120/63 Pulse Oximetry 97 97 Intake & Output 02/07/18 02/08/18 02/08/18 18:59 06:59 18:59 Intake Total 1430 / 1430 472 / 472 Output Total 800 / 800 Balance 1430 / 1430 -328 / -328 Weight 87.1 kg Intake: IV 1250 / 1250 INVanz Inj 1,000 MG In NS Inj 200 / 200 100 ML @ 200 mls/hr IV.SIG Q24H [facility] Rx#:[id number] Oral 180 / 180 330 / 330 Tube Feeding Tube Irrigant 60 / 60 Water Bolus Amount 60 / 60 Output: Urine 600 / 600 Gastric Drainage 200 / 200 Orogastric Tube 200 / 200 Other: # Voids 6 6 # Incontinent Voids 0 2 # Urine Diapers 2 Date of Last Bowel Movement 02/07/18 02/07/18 02/07/18 # Bowel Movements 4 4 # Incontinent Bowel Movements 1 Narrative: GENERAL: NAD SKIN: Cool and dry HEAD: Atraumatic. Normocephalic. EYES: Pupils equal and round. No scleral icterus. No injection or drainage. ENT: No nasal bleeding or discharge. Mucous membranes pink and moist. NECK: Trachea midline. No JVD. CARDIOVASCULAR: Irregularly irregular RESPIRATORY: No accessory muscle use. GASTROINTESTINAL: Abdomen soft, non-tender, nondistended. Hepatic and splenic margins not palpable. MUSCULOSKELETAL: Extremities without clubbing, cyanosis, or edema. No obvious deformities. NEUROLOGICAL: No focal deficits - Urinary Catheter Management Indwelling Temp Sensing Catheter Cath placed during this visit: no Urethral indwelling: Yes Reason for continuing: Hourly intake/output Results 02/07/18 04:47 02/07/18 04:47 Cardiac Enzymes 02/07/18 Range/Units 04:47 AST 29 (15-37) U/L CBC 02/07/18 Range/Units 04:47 WBC 9.1 (4.0-11.0) th/mm3 RBC 3.49 L (4.00-5.30) mil/mm3 Hgb 10.1 L (11.6-15.3) gm/dL Hct 30.6 L (35.0-46.0) % Plt Count 272 (150-450) th/mm3 Comprehensive Metabolic Panel 02/07/18 Range/Units 04:47 Sodium 147 H (136-145) meq/L Potassium 3.7 (3.5-5.1) meq/L Chloride 114 H (98-107) meq/L Carbon Dioxide 22.6 (21.0-32.0) meq/L BUN 38 H (7-18) mg/dL Creatinine 1.17 H (0.50-1.00) mg/dL Calcium 8.5 (8.5-10.1) mg/dL AST 29 (15-37) U/L ALT 19 (10-53) U/L Alkaline Phosphatase 73 (45-117) U/L Total Protein 7.2 (6.4-8.2) g/dL Albumin 2.6 L (3.4-5.0) g/dL Intake and Output 02/07/18 02/08/18 02/08/18 22:59 06:59 14:59 Intake Total 180 / 180 472 / 472 Output Total 800 / 800 Balance 180 / 180 -328 / -328 Intake: Oral 180 / 180 330 / 330 Tube Feeding Tube Irrigant 60 / 60 Water Bolus Amount 60 / 60 Output: Urine 600 / 600 Gastric Drainage 200 / 200 Orogastric Tube 200 / 200 Other: # Voids 6 6 # Incontinent Voids 0 2 # Urine Diapers 2 Date of Last Bowel Movement 02/07/18 02/07/18 02/07/18 # Bowel Movements 4 4 # Incontinent Bowel Movements 1 Weight 87.1 kg Assessment and Plan - Assessment (1) Frail elderly Code(s): R54 - Age-related physical debility Status: Acute (2) Acute myocardial infarction Code(s): I21.9 - Acute myocardial infarction, unspecified Status: Acute (3) Febrile illness Code(s): R50.9 - Fever, unspecified Status: Acute (4) Acute kidney injury Code(s): N17.9 - Acute kidney failure, unspecified Status: Acute (5) Atrial fibrillation Code(s): I48.91 - Unspecified atrial fibrillation Status: Acute (6) Cardiogenic shock Code(s): R57.0 - Cardiogenic shock Status: Acute (7) Acute hypoxemic respiratory failure Code(s): J96.01 - Acute respiratory failure with hypoxia Status: Acute (8) Pulmonary edema cardiac cause Code(s): I50.1 - Left ventricular failure, unspecified Status: Acute (9) Acute myocardial infarction Code(s): I21.9 - Acute myocardial infarction, unspecified Status: Acute - Plan 1) Acute myocardial infarction anteriorly 2) Cardiogenic shock 3) NSVT 4) LOLIS Plan: 1) Diuresed well 2) Extubated 3) ASA/Plavix for PCI 4) Con't Spironolactone 5) Repeat echo showing better function, EF 30-35% 6) Will need to discuss with family about anticoagulation for AFib Combination of antiplatelet and anticoagulation on discharge Concern for current state, will need to see if intermediate designer anti-coagulation candidate Would transfer out of ICU, have PT work with her, and if doing well without falls then will consider anticoagulation
--- NOTE | 2018-02-08 14:13 | P.PNPAL ---
Reason for Visit Reason for visit: a. To assist with evaluation and management of symptoms including: Weakness, confusion, anxiety b. To assist medical decision maker(s) with: better understanding of current medical conditions; weighing benefits/burdens of medical treatment options; making medical treatment decisions. Subjective Subjective/Interval History: This is an 87-year-old female with a past medical history of diabetes, hypertension, rectal cancer in remission, anxiety, depression, coronary artery disease status post stent, former smoker who presented to the emergency department 01/31/2018 plane of chest pain, substernal, pressure, nonradiating, persistent, which resolved with aspirin and sublingual nitro given to her by EMS. She had taken a Xanax earlier to try and help her sleep. Her presenting troponin was 1.25 did she had been seen in the ED on 01/28 and had troponin levels of 0.11, 0.96, 1.08. She was diagnosed with a non-STEMI and seen by cardiology. Cardiac catheterization was held secondary to renal insufficiency. Nephrology consultation was requested for further evaluation. Patient seen for follow-up of symptom management for weakness, confusion and anxiety and to assist family in goals of medical treatment. Patient has intermittent confusion/sundowning overnight, awakens and is unaware of where she is and tries to get out of bed. Her confusion clears during the day, is mild to moderate overnight. This has necessitated the use of wrist restraints for safety, but has exacerbated her anxiety. When she awakens alone in the room, she is unable to reach her call sher due to the wrist restraints and becomes frightened, exacerbating her confusion and anxiety. She remains globally weak, requiring 2 person maximum assistance with walker to ambulate from bed to bathroom. She is currently undergoing physical therapy. Seen by cardiology who recommends transfer to telemetry floor with aggressive physical therapy to determine fall risk prior to considering instituting anticoagulation in addition to antiplatelet therapy. . Family/Friend Interactions: Spoke with granddaughter and updated her as to patient's current clinical condition, expert opinions to include holding anticoagulation decision until after patient's progress with physical therapy to determine her fall risk and her recurrent sundowning and nighttime confusion. Updated as to physical therapy findings, ambulating in room with 2 person assist yesterday and today as well as plans to transfer out of ICU to telemetry for increased mobility. She states that the patient's son and grandson will be visiting this evening which should hopefully help reorient patient to her surroundings. . Advance Directives Living Will: Copy in medical record Health Care Surrogate: Copy in medical record Health Care Surrogate Name and Number: Treva Arvizu Objective Vital Signs: Vital Signs 02/07/18 14:00 02/07/18 14:02 02/07/18 16:52 Temperature 98 F Pulse Rate 90 Respiratory Rate 26 H Blood Pressure 134/67 115/58 L Pulse Oximetry 95 02/07/18 17:00 02/07/18 17:14 02/07/18 17:30 Temperature Pulse Rate 90 94 H 98 H Respiratory Rate 31 H 28 H 33 H Blood Pressure 133/62 131/65 Pulse Oximetry 93 L 90 L 92 L 02/07/18 18:00 02/07/18 18:30 02/07/18 19:00 Temperature Pulse Rate 90 86 86 Respiratory Rate 33 H 27 H 27 H Blood Pressure 165/69 H 129/82 119/79 Pulse Oximetry 92 L 98 97 02/07/18 19:30 02/07/18 20:00 02/07/18 20:30 Temperature 98.1 F Pulse Rate 89 90 90 Respiratory Rate 28 H 25 H 32 H Blood Pressure 133/61 136/63 153/67 H Pulse Oximetry 98 98 97 02/07/18 21:00 02/07/18 21:30 02/07/18 22:00 Temperature Pulse Rate 87 91 H 84 Respiratory Rate 48 H 21 31 H Blood Pressure 124/75 137/65 134/68 Pulse Oximetry 95 96 97 02/07/18 22:30 02/07/18 23:00 02/07/18 23:04 Temperature Pulse Rate 85 83 80 Respiratory Rate 34 H 20 20 Blood Pressure 131/99 H 138/63 Pulse Oximetry 96 95 96 02/08/18 00:00 02/08/18 00:04 02/08/18 01:00 Temperature Pulse Rate 82 91 H 83 Respiratory Rate 19 28 H 19 Blood Pressure 130/80 Pulse Oximetry 98 98 97 02/08/18 01:04 02/08/18 02:00 02/08/18 02:04 Temperature Pulse Rate 77 82 82 Respiratory Rate 20 18 18 Blood Pressure 149/67 H 143/69 H Pulse Oximetry 97 98 98 02/08/18 03:00 02/08/18 03:04 02/08/18 04:00 Temperature 98.0 F Pulse Rate 91 H 84 83 Respiratory Rate 29 H 26 H 18 Blood Pressure 144/80 H 144/80 H 144/69 H Pulse Oximetry 99 99 97 02/08/18 04:04 02/08/18 05:00 02/08/18 05:04 Temperature Pulse Rate 83 85 87 Respiratory Rate 20 19 18 Blood Pressure 144/69 H 133/67 Pulse Oximetry 98 98 98 02/08/18 06:00 02/08/18 06:04 02/08/18 07:00 Temperature Pulse Rate 85 91 H 96 H Respiratory Rate 32 H 22 33 H Blood Pressure 138/67 Pulse Oximetry 99 97 99 02/08/18 07:04 02/08/18 08:00 02/08/18 08:04 Temperature 98.4 F 98.4 F Pulse Rate 90 98 H 97 H Respiratory Rate 18 28 H 26 H Blood Pressure 147/68 H 125/61 125/61 Pulse Oximetry 98 93 L 94 L 02/08/18 09:00 02/08/18 09:04 02/08/18 09:20 Temperature Pulse Rate 92 H 91 H Respiratory Rate 23 27 H Blood Pressure 148/64 H Pulse Oximetry 96 98 100 02/08/18 10:00 02/08/18 10:04 02/08/18 11:00 Temperature Pulse Rate 84 83 83 Respiratory Rate 16 16 30 H Blood Pressure 131/55 L Pulse Oximetry 91 L 96 94 L 02/08/18 11:04 02/08/18 12:00 02/08/18 12:04 Temperature 98.2 F Pulse Rate 85 81 83 Respiratory Rate 31 H 24 23 Blood Pressure 121/84 120/63 Pulse Oximetry 97 97 02/08/18 13:00 02/08/18 13:19 Temperature 98.6 F Pulse Rate 93 H 89 Respiratory Rate 20 24 Blood Pressure 135/84 Pulse Oximetry 98 99 Intake & Output 02/07/18 02/08/18 02/08/18 18:59 06:59 18:59 Intake Total 1430 / 1430 472 / 472 100 / 100 Output Total 800 / 800 Balance 1430 / 1430 -328 / -328 100 / 100 Weight 192 lb 0.362 oz Intake: IV 1250 / 1250 100 / 100 INVanz Inj 1,000 MG In NS Inj 200 / 200 100 / 100 100 ML @ 200 mls/hr IV.SIG Q24H TATYANA Rx#:[id number] Oral 180 / 180 330 / 330 Tube Feeding / Tube Irrigant 60 / 60 Water Bolus Amount 60 / 60 Output: Urine 600 / 600 Gastric Drainage 200 / 200 Orogastric Tube 200 / 200 Other: # Voids 6 6 # Incontinent Voids 0 2 # Urine Diapers 2 Date of Last Bowel Movement 02/07/18 02/07/18 02/08/18 # Bowel Movements 4 4 # Incontinent Bowel Movements 1 Physical Exam: CONSTITUTIONAL/GENERAL: This is an adequately nourished patient, lying in bed, lethargic in no apparent distress. TUBES/LINES/DRAINS: PIV CARDIOVASCULAR: Irregular rhythm, controlled rate without murmurs, gallops, or rubs. No JVD. Peripheral pulses symmetric. RESPIRATORY/CHEST: Symmetric, unlabored respirations. Clear to auscultation. Breath sounds equal bilaterally. No wheezes, rales, or rhonchi. GASTROINTESTINAL: Abdomen soft, non-tender, nondistended. No hepato-splenomegaly , or palpable masses. No guarding. Bowel sounds present. GENITOURINARY: Without palpable bladder distension. MUSCULOSKELETAL: Extremities without clubbing, cyanosis, or edema. No joint tenderness or effusion noted. No calf tenderness. No mottling or clubbing. NEUROLOGICAL: Awake, alert, conversant, speech clear, motor and sensory grossly within normal limits with global weakness. Follows commands. Moves all extremities. PSYCHIATRIC: Complains of anxiety, particularly overnight and when restrained. . Diagnostic Tests Laboratory: Laboratory Results - last 72 hr 02/05/18 02/05/18 02/06/18 16:10 19:56 00:15 WBC RBC Hgb Hct MCV MCH MCHC RDW Plt Count MPV Sodium Potassium Chloride Carbon Dioxide Anion Gap BUN Creatinine Estimated GFR POC Glucose 246 H 258 H 264 H Random Glucose Calcium Magnesium Total Bilirubin AST ALT Alkaline Phosphatase Total Protein Albumin 02/06/18 02/06/18 02/06/18 04:21 04:23 04:23 WBC 9.7 RBC 3.70 L Hgb 10.6 L Hct 32.5 L MCV 88.0 MCH 28.7 MCHC 32.7 RDW 15.9 Plt Count 229 MPV 10.0 Sodium 146 H Potassium 4.0 Chloride 113 H Carbon Dioxide 23.6 Anion Gap 9 BUN 34 H Creatinine 1.11 H Estimated GFR 46 L POC Glucose 212 H Random Glucose 193 H Calcium 8.5 Magnesium 2.4 Total Bilirubin 0.4 AST 32 ALT 20 Alkaline Phosphatase 79 Total Protein 7.3 Albumin 2.5 L 02/06/18 02/06/18 02/06/18 07:51 12:10 16:43 WBC RBC Hgb Hct MCV MCH MCHC RDW Plt Count MPV Sodium Potassium Chloride Carbon Dioxide Anion Gap BUN Creatinine Estimated GFR POC Glucose 198 H 212 H 203 H Random Glucose Calcium Magnesium Total Bilirubin AST ALT Alkaline Phosphatase Total Protein Albumin 02/06/18 02/06/18 02/07/18 21:55 23:29 04:47 WBC 9.1 RBC 3.49 L Hgb 10.1 L Hct 30.6 L MCV 87.8 MCH 28.9 MCHC 32.9 RDW 15.6 Plt Count 272 MPV 10.0 Sodium Potassium Chloride Carbon Dioxide Anion Gap BUN Creatinine Estimated GFR POC Glucose 196 H 187 H Random Glucose Calcium Magnesium Total Bilirubin AST ALT Alkaline Phosphatase Total Protein Albumin 02/07/18 02/07/18 02/07/18 04:47 09:16 12:23 WBC RBC Hgb Hct MCV MCH MCHC RDW Plt Count MPV Sodium 147 H Potassium 3.7 Chloride 114 H Carbon Dioxide 22.6 Anion Gap 10 BUN 38 H Creatinine 1.17 H Estimated GFR 44 L POC Glucose 202 H 224 H Random Glucose 168 H Calcium 8.5 Magnesium Total Bilirubin 0.5 AST 29 ALT 19 Alkaline Phosphatase 73 Total Protein 7.2 Albumin 2.6 L 02/07/18 02/07/18 02/08/18 17:37 19:36 00:01 WBC RBC Hgb Hct MCV MCH MCHC RDW Plt Count MPV Sodium Potassium Chloride Carbon Dioxide Anion Gap BUN Creatinine Estimated GFR POC Glucose 230 H 205 H 103 Random Glucose Calcium Magnesium Total Bilirubin AST ALT Alkaline Phosphatase Total Protein Albumin 02/08/18 02/08/18 02/08/18 03:25 07:30 12:34 WBC RBC Hgb Hct MCV MCH MCHC RDW Plt Count MPV Sodium Potassium Chloride Carbon Dioxide Anion Gap BUN Creatinine Estimated GFR POC Glucose 140 H 185 H 243 H Random Glucose Calcium Magnesium Total Bilirubin AST ALT Alkaline Phosphatase Total Protein Albumin Result Diagrams: 02/07/18 04:47 02/07/18 04:47 Microbiology: Microbiology 02/03/18 02:37 Aerobic Blood Culture - Final Blood - Peripheral No growth in 5 days Anaerobic Blood Culture - Final No growth in 5 days 02/02/18 23:05 Aerobic Blood Culture - Final Blood - Peripheral No growth in 5 days Anaerobic Blood Culture - Final QNS - See aerobic report. 01/31/18 21:38 Aerobic Blood Culture - Final Blood - Peripheral No growth in 5 days Anaerobic Blood Culture - Final No growth in 5 days 01/31/18 21:43 Aerobic Blood Culture - Final Blood - Peripheral No growth in 5 days Anaerobic Blood Culture - Final No growth in 5 days Imaging: Chest X-Ray 01/31/18 02:15 CONCLUSION: No significant change mild left base atelectasis. Otherwise within normal limits. Abdomen/Bladder Ultrasound 02/02/18 00:00 CONCLUSION: 1. Increased renal echogenicity typical of chronic parenchymal changes. 2. No evidence of acute obstructive uropathy. 3. Small bilateral benign-appearing cysts. Abdomen/Pelvis CT 02/02/18 00:00 CONCLUSION: 1. No acute abnormalities are seen in the abdomen or pelvis. 2. Mildly atrophic left kidney with vascular calcifications. 3. Aortoiliac atherosclerosis. No aneurysm. 4. Cholelithiasis. 5. Bilateral small pleural effusions and mild to moderate basilar atelectasis. 6. Coronary artery calcification. 7. Nonspecific mass of the visualized left breast. Last mammogram in our system was 2012. Up-to-date bilateral mammography with a diagnostic left breast mammogram recommended. Chest X-Ray 02/02/18 00:00 CONCLUSION: Worsening aeration Chest X-Ray 02/02/18 00:00 CONCLUSION: 1. Endotracheal tube and nasogastric tube in place. 2. Slight increase in hazy opacity at the right lung base. Patchy opacity left lung base partially visualized. Chest X-Ray 02/03/18 00:00 CONCLUSION: Endotracheal tube tip is a bit deep Improving aeration Chest X-Ray 02/04/18 10:43 CONCLUSION: Minimal left basilar density and probable small pleural effusion. Chest X-Ray 02/05/18 08:20 CONCLUSION: No acute cardiopulmonary disease. Chest X-Ray 02/06/18 06:00 CONCLUSION: Interval extubation. Stable aeration. Procedures: 02/02: Intubation 02/05: Extubation . Assessment and Plan - Disease Oriented Problem List (1) Non-ST elevated myocardial infarction (non-STEMI) (2) Acute kidney injury (3) Type 2 diabetes mellitus (4) Acute hypoxemic respiratory failure (5) Pulmonary edema cardiac cause (6) Acute myocardial infarction (7) Atrial fibrillation (8) Cardiogenic shock Pertinent Non-Medical Issues: Psychosocial: She was born in [facility] and lived there most of her life. She was however her passed in 1983. She moved to [place] in the early 80s. 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 She has 1 son. 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 Legal: Living will on the chart with healthcare surrogate. Ethical issues impacting care: None noted. . Important Contacts: Granddaughter: Treva Arvizu Son: Vicky Arvizu . Prognosis: Her prognosis is guarded. She is of advanced age at 87 and showing signs of decline. In addition to renal insufficiency she has multiple cardiac risk factors to include hypertension, hyperlipidemia, obesity with BMI 30.8 kg/m, diabetes with a hemoglobin A1c 7.8 and evidence of at minimum a non-STEMI. Cardiac catheterization per the strip roller report would be a high risk/"heroic " procedure. She is also febrile with no known source of infection. Urinalysis has been negative on 01/29 and 01/31, influenza is negative and blood cultures are negative times 1 day. Empiric antibiotic coverage is being initiated as cultures are pending. She is at increased risk of continued hospitalizations, complications and decline. . Code Status: Full Code Plan: PLAN: Legal decision maker: Patient at this time is confused and not capacitated for decision-making. It is uncertain if she will regain capacity. Living will and healthcare surrogate on the chart name her granddaughter Treva and Treva's brother Gonzalez as joint healthcare surrogate's. Gonzalez is a member of the [employer] currently regarding the president and unavailable. Goals: Aggressive CODE STATUS: FULL CODE SYMPTOMS: * Confusion: Continues to have sundowners overnight with confusion and tries to get out of bed, placing her at risk for fall, thereby requiring restraints. This exacerbates her anxiety. Would recommend transfer to telemetry, close to nurses station with bed/chair alarm to decrease use of restraints. * Weakness: Globally weak. At baseline, prior to admission, used walker/ wheelchair. Now requires 2 person maximum assistance plus walker. Family and patient goals aggressive. Requesting rehabilitation. Would recommend physical therapy 7 days a week. Have requested evaluation from [facility] at family request. * Anxiety: Anxiety occurs mostly overnight when experiencing sundowning and requiring restraints to prevent her getting out of bed and falling. Would recommend a PRN Xanax at bedtime to facilitate better sleep. Palliative care will continue to follow the patient during hospital course as condition evolves, to assist patient/decision-maker with understanding of their medical conditions, weighing benefits/burdens of treatment options, for clarification of goals of treatment. Additionally will assist with any symptoms of palliative concern. . Attestation Attestation: To help prompt me to consider important information that might be impacting today's encounter and assessment, information from prior notes written by myself or my colleagues may have been "brought forward" into today's note. My signature on this note, however, is an attestation that I personally performed the exam, history, and/or decision-making noted today, and, unless otherwise indicated, the interactions with patient, family, and staff as well as the review of records all occurred today. I also attest that the listed assessment and stated plan reflect my best clinical judgment today based on the combination of historical information, prior notes, and today's exam/ interactions. When time spent is documented, it refers only to time spent today by the signer, or if indicated, combined time spent today by collaborating physician/nurse practitioner. .
[2018-02-09] MEDS: Oral Hygiene Kit OROPHARYNG SCH ×5 (01:26→23:41)
[2018-02-09] MEDS: Insulin NovoLOG Aspart Correctional Sugar Inj SQ SCH ×6 (01:34→21:04)
[2018-02-09] MEDS: ALPRAZolam 0.5 MG Tablet PO PRN ×4 (02:33→21:40)
[2018-02-09 06:02] LABS: Baso % (Auto) 0.6 % (0.0-2.0); Eos # (Auto) 0.2 th/mm3 (0.0-0.4); Eos % (Auto) 2.7 % (0.0-4.0); Hemoglobin 10.7 gm/dL (11.6-15.3); Lymph % (Auto) 14.2 % (9.0-44.0); Mean Corpuscular HGB Conc 32.3 % (32.0-36.0); Mean Corpuscular Hemoglobin 28.5 pg (27.0-34.0); Mean Corpuscular Volume 88.3 fL (80.0-100.0); Mean Platelet Volume 8.9 fL (7.0-11.0); Mono # (Auto) 0.7 th/mm3 (0.0-0.9); Mono % (Auto) 9.5 % (0.0-8.0); Neut # (Auto) 5.3 th/mm3 (1.8-7.7); Platelet Count 269 th/mm3 (150-450); Red Blood Count 3.74 mil/mm3 (4.00-5.30); Red Cell Distribution Width 15.9 % (11.6-17.2); White Blood Count 7.3 th/mm3 (4.0-11.0)
[2018-02-09] MEDS: Heparin - SQ 10,000 UNITS/ML Vial SQ SCH ×3 (06:09→21:04)
[2018-02-09 06:34] LABS: Albumin 2.8 g/dL (3.4-5.0); Anion Gap 9 meq/L (5-15); Aspartate Aminotransferase 20 U/L (15-37); Blood Urea Nitrogen 28 mg/dL (7-18); Calcium 8.3 mg/dL (8.5-10.1); Carbon Dioxide 25.8 meq/L (21.0-32.0); Chloride 115 meq/L (98-107); Glomerular Filtration Rate 47 mL/min (>89); Glucose,Random 113 mg/dL (74-106); Potassium 3.8 meq/L (3.5-5.1); Sodium 150 meq/L (136-145)
[2018-02-09 06:35] LABS: Alanine Aminotransferase 20 U/L (10-53)
[2018-02-09 06:38] LABS: Alkaline Phosphatase 73 U/L (45-117); Total Protein 7.3 g/dL (6.4-8.2)
[2018-02-09] MEDS: Metoprolol Tartrate 25 MG Tablet PO SCH ×2 (09:04→20:50)
[2018-02-09] MEDS: Famotidine PF Inj 20 MG/2 ML Vial IV.PUSH SCH ×2 (09:05→20:50)
[2018-02-09] MEDS: Spironolactone 25 MG Tablet PO SCH ×2 (09:09→19:44)
--- NOTE | 2018-02-09 09:41 | P.PNCA ---
Subjective Interval history: Feels "just fine". Denies angina, dyspnea, dizziness, palpitations. Slept well. Medications and Allergies Active Medications: Active Medications Acetaminophen (Tylenol) 500 mg PO Q4H PRN PRN Reason: FEVER > 100.4 F Last Admin: 02/03/18 22:56 Dose: 500 mg Al Hydroxide/Mg Hydroxide (Milk Of Nita Enriquez) 30 ml PO Q12H PRN PRN Reason: Mild Constipation Albuterol (Duoneb Neb (Prn)) 1 ampul NEB Q2HR NEB PRN PRN Reason: SHORTNESS OF BREATH Alprazolam (Xanax) 0.5 mg PO Q8H PRN PRN Reason: ANXIETY Last Admin: 02/02/18 05:26 Dose: 0.5 mg Alprazolam (Xanax) 0.5 mg PO Q8H PRN PRN Reason: ANXIETY Last Admin: 02/09/18 02:33 Dose: 0.5 mg Aspirin (Ecotrin) 81 mg PO DAILY [facility] Last Admin: 02/09/18 09:04 Dose: 81 mg Atorvastatin Calcium (Lipitor) 40 mg PO HS [facility] Last Admin: 02/08/18 23:00 Dose: 40 mg Bisacodyl (Dulcolax Supp) 10 mg RECTAL DAILY PRN PRN Reason: SEVERE CONSITIPATION Chlorhexidine Gluconate (Peridex 0.12% Oral Kit) 15 ml OROPHARYNG BID@0800, 2000 [facility] Last Admin: 02/08/18 22:44 Dose: Not Given Clopidogrel Bisulfate (Plavix) 75 mg PO DAILY [facility] Last Admin: 02/09/18 09:05 Dose: 75 mg Dextrose (D50w Vial) 50 ml IV.PUSH UNSCH PRN PRN Reason: PER HYPOGLYCEMIA PROTOCOL Famotidine (Pepcid Pf Inj) 10 mg IV.PUSH Q12HR [facility] Last Admin: 02/09/18 09:05 Dose: 10 mg Glucagon (Glucagon Inj) 1 mg OTHER PRN PRN PRN Reason: for Hypoglycemia Protocol Heparin Sodium (Porcine) (Heparin Inj) 5,000 units SQ Q8HR [facility] Last Admin: 02/09/18 06:09 Dose: 5,000 units Ertapenem 1,000 mg/ Sodium (Chloride) 100 mls @ 200 mls/hr IV.SIG Q24H [facility] Last Infusion: 02/08/18 13:26 Dose: Infused Sodium Chloride (Ns Inj) 1,000 mls @ 42 mls/hr IV.CONT .[id number] [facility] Last Admin: 02/08/18 12:35 Dose: 42 mls/hr Insulin Aspart (Novolog Insulin Correctional Sugar Inj) 0 unit SQ Q4HR [facility]; Protocol Last Admin: 02/09/18 09:06 Dose: 2 unit Lactulose (Lactulose Liq) 30 ml PO DAILY PRN PRN Reason: SEVERE CONSITIPATION Metoprolol Tartrate (Lopressor) 25 mg PO TID [facility] Last Admin: 02/09/18 09:04 Dose: 25 mg Miscellaneous (Pill Splitter) 1 each OTHER UNSCH PRN PRN Reason: SEE LABEL COMMENTS Miscellaneous Medication () 1 each OROPHARYNG 0000,0400,1200,1600 [facility] Last Admin: 02/09/18 04:40 Dose: Not Given Nitroglycerin (Nitro-Bid 2% Oint) 0.5 inch TOPICAL Q6HR [facility] Last Admin: 02/09/18 06:09 Dose: 0.5 inch Sennosides (Senokot) 17.2 mg PO Q12H PRN PRN Reason: Moderate Constipation Sodium Chloride (Ns Flush) 2 ml IV.FLUSH BID [facility] Last Admin: 02/09/18 09:09 Dose: 2 ml Sodium Chloride (Ns Flush) 2 ml IV.FLUSH UNSCH PRN PRN Reason: FLUSH AFTER USING IV ACCESS Spironolactone (Aldactone) 50 mg PO BID@0900,1800 [facility] Last Admin: 02/09/18 09:09 Dose: 50 mg Tramadol HCl (Ultram) 50 mg PO Q6H PRN PRN Reason: Pain 1-10 Last Admin: 02/08/18 23:00 Dose: 50 mg Whey (Beneprotein Powder) 1 packet G-TUBE TID [facility] Last Admin: 02/08/18 22:43 Dose: Not Given Allergies Allergy/AdvReac Type Severity Reaction Status Date / Time penicillin G Allergy Severe UNKNOWN Verified 01/31/18 02:06 Sulfa (Sulfonamide Allergy Severe UNKNOWN Verified 01/31/18 02:06 Antibiotics) ciprofloxacin AdvReac unknown Verified 02/03/18 11:14 Home Medications Medication Instructions Recorded Confirmed Type alprazolam 0.5 mg PO Q8HR PRN 01/31/18 01/31/18 History tramadol 50 mg PO Q6H PRN 01/31/18 01/31/18 History Physical Exam Vital signs: Vital Signs 02/08/18 10:00 02/08/18 10:04 02/08/18 11:00 Temperature Pulse Rate 84 83 83 Respiratory Rate 16 16 30 H Blood Pressure 131/55 L Pulse Oximetry 91 L 96 94 L 02/08/18 11:04 02/08/18 12:00 02/08/18 12:04 Temperature 98.2 F Pulse Rate 85 81 83 Respiratory Rate 31 H 24 23 Blood Pressure 121/84 120/63 Pulse Oximetry 97 97 02/08/18 13:00 02/08/18 13:19 02/08/18 14:00 Temperature 98.6 F Pulse Rate 93 H 89 87 Respiratory Rate 20 24 34 H Blood Pressure 135/84 Pulse Oximetry 98 99 02/08/18 14:04 02/08/18 15:00 02/08/18 15:04 Temperature Pulse Rate 85 88 85 Respiratory Rate 28 H 29 H 26 H Blood Pressure 133/68 133/61 Pulse Oximetry 98 99 02/08/18 16:00 02/08/18 16:04 02/08/18 17:00 Temperature 98.4 F Pulse Rate 100 H 91 H 89 Respiratory Rate 32 H 36 H 54 H Blood Pressure 120/62 Pulse Oximetry 92 L 99 97 02/08/18 17:04 02/08/18 18:29 02/08/18 20:00 Temperature 98.4 F 98.3 F Pulse Rate 82 88 82 Respiratory Rate 31 H 22 18 Blood Pressure 137/71 130/77 141/80 H Pulse Oximetry 99 94 L 94 L 02/09/18 00:00 02/09/18 04:00 02/09/18 07:00 Temperature 98.6 F 98.7 F 97.6 F Pulse Rate 85 98 H 95 H Respiratory Rate 18 18 17 Blood Pressure 156/87 H 131/71 156/97 H Pulse Oximetry 94 L 92 L 96 02/09/18 08:43 Temperature 98 F Pulse Rate 105 H Respiratory Rate 17 Blood Pressure 151/80 H Pulse Oximetry 95 Intake & Output 02/08/18 02/09/18 02/09/18 18:59 06:59 18:59 Intake Total 100 / 100 Balance 100 / 100 Weight 87 kg Intake: IV 100 / 100 INVanz Inj 1,000 MG In NS Inj 100 / 100 100 ML @ 200 mls/hr IV.SIG Q24H [facility] Rx#:[id number] Other: Date of Last Bowel Movement 02/07/18 - Constitutional no acute distress - Routine Neck Exam Absent: JVD - Routine Respiratory Exam Present: CTA bilaterally - Routine Cardiovascular Exam Present: S1, S2, irregularly irregular. Absent: murmur, gallop - Routine Abdominal Exam Present: soft, normoactive bowel sounds. Absent: tenderness, organomegaly - Routine Extremities Exam Absent: cyanosis, clubbing, edema - Urinary Catheter Management Indwelling Temp Sensing Catheter Cath placed during this visit: no Urethral indwelling: Yes Reason for continuing: Hourly intake/output Results 02/09/18 05:39 02/09/18 05:39 Cardiac Enzymes 02/09/18 Range/Units 05:39 AST 20 (15-37) U/L CBC 02/09/18 Range/Units 05:39 WBC 7.3 (4.0-11.0) th/mm3 RBC 3.74 L (4.00-5.30) mil/mm3 Hgb 10.7 L (11.6-15.3) gm/dL Hct 33.0 L (35.0-46.0) % Plt Count 269 (150-450) th/mm3 Neut # (Auto) 5.3 (1.8-7.7) th/mm3 Lymph # (Auto) 1.0 (1.0-4.8) th/mm3 [place] # (Auto) 0.7 (0.0-0.9) th/mm3 Eos # (Auto) 0.2 (0.0-0.4) th/mm3 Baso # (Auto) 0.0 (0.0-0.2) th/mm3 Comprehensive Metabolic Panel 02/09/18 Range/Units 05:39 Sodium 150 H (136-145) meq/L Potassium 3.8 (3.5-5.1) meq/L Chloride 115 H (98-107) meq/L Carbon Dioxide 25.8 (21.0-32.0) meq/L BUN 28 H (7-18) mg/dL Creatinine 1.09 H (0.50-1.00) mg/dL Calcium 8.3 L (8.5-10.1) mg/dL AST 20 (15-37) U/L ALT 20 (10-53) U/L Alkaline Phosphatase 73 (45-117) U/L Total Protein 7.3 (6.4-8.2) g/dL Albumin 2.8 L (3.4-5.0) g/dL Intake and Output 02/08/18 02/09/18 02/09/18 22:59 06:59 14:59 Other: Date of Last Bowel Movement 02/07/18 Weight 87 kg Assessment and Plan - Assessment (1) Frail elderly Code(s): R54 - Age-related physical debility Status: Acute Plan: Still full code which does not appear realistic cosidering age/ prognosis (2) Acute myocardial infarction Code(s): I21.9 - Acute myocardial infarction, unspecified Status: Acute Plan: Looks like anterior STEMI that is "simmering" - her ischemia is ongoing and probably ongoing since 01/28 (3) Febrile illness Code(s): R50.9 - Fever, unspecified Status: Acute Plan: source not found yet. NH's frequenyly cause low grade fever but not this high (4) Acute kidney injury Code(s): N17.9 - Acute kidney failure, unspecified Status: Acute Plan: improved (5) Atrial fibrillation Code(s): I48.91 - Unspecified atrial fibrillation Status: Acute (6) Cardiogenic shock Code(s): R57.0 - Cardiogenic shock Status: Acute (7) Acute hypoxemic respiratory failure Code(s): J96.01 - Acute respiratory failure with hypoxia Status: Acute (8) Pulmonary edema cardiac cause Code(s): I50.1 - Left ventricular failure, unspecified Status: Acute (9) Acute myocardial infarction Code(s): I21.9 - Acute myocardial infarction, unspecified Status: Acute - Plan 1) Acute myocardial infarction anteriorly 2) Cardiogenic shock 3) NSVT 4) LOLIS Cardiac status stable overnight. No recurrent angina. No overt CHF. Remains in atrial fib, normal to mildly elevated HR's. REC 1) Continue physical therapy 2) Increase metoprolol dosing 3) Dr. Peralta to decide on discharge antiplatelet/anticoagulation regimen.
--- NOTE | 2018-02-09 11:27 | P.PN ---
Subjective Interval history: Follow-up acute respiratory failure/non-ST elevation [place]/cardiogenic shock February 07, 2018-patient seen and examined; she is alert and oriented x2. 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 Vital stable. Case discussed with RN as well as special education case manager. February 08, 2018-patient seen and examined; stable this AM, not take much of PO liquid. Afebrile February 09, 2018-patient seen and examined, denies any chest pain, states she is fine. Tolerating p.o. without any complication of nausea and vomiting. No acute event overnight. Physical Exam Vital signs: Vital Signs 02/08/18 12:00 02/08/18 12:04 02/08/18 13:00 Temperature 98.2 F Pulse Rate 81 83 93 H Respiratory Rate 24 23 20 Blood Pressure 120/63 Pulse Oximetry 97 97 98 02/08/18 13:19 02/08/18 14:00 02/08/18 14:04 Temperature 98.6 F Pulse Rate 89 87 85 Respiratory Rate 24 34 H 28 H Blood Pressure 135/84 133/68 Pulse Oximetry 99 02/08/18 15:00 02/08/18 15:04 02/08/18 16:00 Temperature Pulse Rate 88 85 100 H Respiratory Rate 29 H 26 H 32 H Blood Pressure 133/61 Pulse Oximetry 98 99 92 L 02/08/18 16:04 02/08/18 17:00 02/08/18 17:04 Temperature 98.4 F Pulse Rate 91 H 89 82 Respiratory Rate 36 H 54 H 31 H Blood Pressure 120/62 137/71 Pulse Oximetry 99 97 99 02/08/18 18:29 02/08/18 20:00 02/09/18 00:00 Temperature 98.4 F 98.3 F 98.6 F Pulse Rate 88 82 85 Respiratory Rate 22 18 18 Blood Pressure 130/77 141/80 H 156/87 H Pulse Oximetry 94 L 94 L 94 L 02/09/18 04:00 02/09/18 07:00 02/09/18 08:43 Temperature 98.7 F 97.6 F 98 F Pulse Rate 98 H 95 H 105 H Respiratory Rate 18 17 17 Blood Pressure 131/71 156/97 H 151/80 H Pulse Oximetry 92 L 96 95 Intake & Output 02/08/18 02/09/18 02/09/18 18:59 06:59 18:59 Intake Total 100 / 100 Balance 100 / 100 Weight 87 kg Intake: IV 100 / 100 INVanz Inj 1,000 MG In NS Inj 100 / 100 100 ML @ 200 mls/hr IV.SIG Q24H [facility] Rx#:[id number] Other: Date of Last Bowel Movement 02/07/18 Narrative: GENERAL: NAD SKIN: Cool and dry HEAD: Atraumatic. Normocephalic. EYES: Pupils equal and round. No scleral icterus. No injection or drainage. ENT: No nasal bleeding or discharge. Mucous membranes pink and moist. NECK: Trachea midline. No JVD. CARDIOVASCULAR: Irregularly irregular RESPIRATORY: No accessory muscle use. GASTROINTESTINAL: Abdomen soft, non-tender, nondistended. Hepatic and splenic margins not palpable. MUSCULOSKELETAL: Extremities without clubbing, cyanosis, or edema. No obvious deformities. NEUROLOGICAL: No focal deficits - Urinary Catheter Management Indwelling Temp Sensing Catheter Cath placed during this visit: no Urethral indwelling: Yes Reason for continuing: Hourly intake/output Results - Labs CBC & Chem 7: 02/09/18 05:39 02/09/18 05:39 Laboratory Results - last 24 hr 02/08/18 02/08/18 02/08/18 12:34 17:04 23:05 WBC RBC Hgb Hct MCV MCH MCHC RDW Plt Count MPV Neut % (Auto) Lymph % (Auto) Dukes % (Auto) Eos % (Auto) Baso % (Auto) Neut # (Auto) Lymph # (Auto) Dukes # (Auto) Eos # (Auto) Baso # (Auto) WBC Differential Differential Comment Sodium Potassium Chloride Carbon Dioxide Anion Gap BUN Creatinine Estimated GFR POC Glucose 243 H 300 H 273 H Random Glucose Calcium Total Bilirubin AST ALT Alkaline Phosphatase Total Protein Albumin 02/09/18 02/09/18 02/09/18 01:29 04:39 05:39 WBC 7.3 RBC 3.74 L Hgb 10.7 L Hct 33.0 L MCV 88.3 MCH 28.5 MCHC 32.3 RDW 15.9 Plt Count 269 MPV 8.9 Neut % (Auto) 73.0 H Lymph % (Auto) 14.2 Dukes % (Auto) 9.5 H Eos % (Auto) 2.7 Baso % (Auto) 0.6 Neut # (Auto) 5.3 Lymph # (Auto) 1.0 Dukes # (Auto) 0.7 Eos # (Auto) 0.2 Baso # (Auto) 0.0 WBC Differential . Differential Comment Auto diff final Sodium Potassium Chloride Carbon Dioxide Anion Gap BUN Creatinine Estimated GFR POC Glucose 225 H 127 H Random Glucose Calcium Total Bilirubin AST ALT Alkaline Phosphatase Total Protein Albumin 02/09/18 02/09/18 05:39 08:56 WBC RBC Hgb Hct MCV MCH MCHC RDW Plt Count MPV Neut % (Auto) Lymph % (Auto) Dukes % (Auto) Eos % (Auto) Baso % (Auto) Neut # (Auto) Lymph # (Auto) Dukes # (Auto) Eos # (Auto) Baso # (Auto) WBC Differential Differential Comment Sodium 150 H Potassium 3.8 Chloride 115 H Carbon Dioxide 25.8 Anion Gap 9 BUN 28 H Creatinine 1.09 H Estimated GFR 47 L POC Glucose 164 H Random Glucose 113 H Calcium 8.3 L Total Bilirubin 0.3 AST 20 ALT 20 Alkaline Phosphatase 73 Total Protein 7.3 Albumin 2.8 L Microbiology 02/03/18 02:37 Blood - Peripheral Aerobic Blood Culture - Final No growth in 5 days 02/03/18 02:37 Blood - Peripheral Anaerobic Blood Culture - Final No growth in 5 days Assessment and Plan - Plan 87-year-old female with: Acute hypoxemic respiratory failure-resolved -Maintain oxygen saturation above 92% -DuoNeb every hours as needed, EzPAP Acute myocardial infarction -Continue antiplatelet therapy (ASA, Plavix) -Status post PCI with LAD stent (LUZMARIA) 02/03/[address] Peralta -Aldactone 50 mg twice daily -Management per cardiology Ischemic cardiomyopathy -Continue beta-blockers metoprolol 25 mg p.o. 3 times daily -Repeat echo February 06, 2018 with EF of 30% Atrial fibrillation -Currently rate controlled -Increase metoprolol to 50mg BID today 02/09/18 -Currently on DAPT and subcu heparin, if A. fib persists may need full anticoagulation -Cardiology to discuss with family for possible starting oral anticoagulation versus others Hyperlipidemia -On Statin Acute kidney injury-resolved -Avoid nephrotoxins -Nephrology signed off Diabetes mellitus, poorly controlled -Currently on Medium correction sliding scale insulin protocol UTI , ESBL + organism -Currently on ertapenem and monitor culture report -Management per ID Continue NS @42cc/ml Prophylaxis -Heparin sq -Pepcid -PT/OT
[2018-02-09] MEDS: Chlorhexidine 0.12% Oral Kit 15 ML UDC OROPHARYNG SCH ×2 (14:54→20:51)
[2018-02-09] MEDS: Beneprotein Powder Packet G-TUBE SCH ×3 (14:54→19:44)
[2018-02-09] MEDS: Sod Chloride 0.9% Inj 1,000 ML IV.CONT SCH (18:58)
[2018-02-10] MEDS: Insulin NovoLOG Aspart Correctional Sugar Inj SQ SCH ×7 (00:57→23:52)
[2018-02-10] MEDS: Oral Hygiene Kit OROPHARYNG SCH ×4 (03:03→23:54)
[2018-02-10] MEDS: Heparin - SQ 10,000 UNITS/ML Vial SQ SCH ×3 (05:27→21:01)
[2018-02-10] MEDS: Chlorhexidine 0.12% Oral Kit 15 ML UDC OROPHARYNG SCH ×2 (07:17→21:04)
[2018-02-10] MEDS: Famotidine PF Inj 20 MG/2 ML Vial IV.PUSH SCH ×2 (08:33→21:03)
[2018-02-10] MEDS: Metoprolol Tartrate 25 MG Tablet PO SCH ×2 (08:34→20:55)
[2018-02-10] MEDS: Beneprotein Powder Packet G-TUBE SCH ×3 (08:38→19:30)
[2018-02-10] MEDS: Spironolactone 25 MG Tablet PO SCH ×2 (08:41→19:30)
[2018-02-10 10:38] LABS: Calcium 8.1 mg/dL (8.5-10.1); Carbon Dioxide 24.9 meq/L (21.0-32.0)
[2018-02-10 10:39] LABS: Potassium 5.2 meq/L (3.5-5.1)
--- NOTE | 2018-02-10 11:13 | P.PNCA ---
Subjective Interval history: Denies CP, dyspnea, dizziness, palpitations. Slept well. Medications and Allergies Active Medications: Active Medications Acetaminophen (Tylenol) 500 mg PO Q4H PRN PRN Reason: FEVER > 100.4 F Last Admin: 02/03/18 22:56 Dose: 500 mg Al Hydroxide/Mg Hydroxide (Milk Of Nita Enriquez) 30 ml PO Q12H PRN PRN Reason: Mild Constipation Albuterol (Duoneb Neb (Prn)) 1 ampul NEB Q2HR NEB PRN PRN Reason: SHORTNESS OF BREATH Alprazolam (Xanax) 0.5 mg PO Q8H PRN PRN Reason: ANXIETY Last Admin: 02/02/18 05:26 Dose: 0.5 mg Alprazolam (Xanax) 0.5 mg PO Q8H PRN PRN Reason: ANXIETY Last Admin: 02/09/18 21:40 Dose: 0.5 mg Aspirin (Ecotrin) 81 mg PO DAILY [facility] Last Admin: 02/10/18 08:34 Dose: 81 mg Atorvastatin Calcium (Lipitor) 40 mg PO HS [facility] Last Admin: 02/09/18 20:50 Dose: 40 mg Bisacodyl (Dulcolax Supp) 10 mg RECTAL DAILY PRN PRN Reason: SEVERE CONSITIPATION Chlorhexidine Gluconate (Peridex 0.12% Oral Kit) 15 ml OROPHARYNG BID@0800, 2000 [facility] Last Admin: 02/10/18 07:17 Dose: Not Given Clopidogrel Bisulfate (Plavix) 75 mg PO DAILY [facility] Last Admin: 02/10/18 08:34 Dose: 75 mg Dextrose (D50w Vial) 50 ml IV.PUSH UNSCH PRN PRN Reason: PER HYPOGLYCEMIA PROTOCOL Famotidine (Pepcid Pf Inj) 10 mg IV.PUSH Q12HR [facility] Last Admin: 02/10/18 08:33 Dose: 10 mg Glucagon (Glucagon Inj) 1 mg OTHER PRN PRN PRN Reason: for Hypoglycemia Protocol Heparin Sodium (Porcine) (Heparin Inj) 5,000 units SQ Q8HR [facility] Last Admin: 02/10/18 05:27 Dose: 5,000 units Ertapenem 1,000 mg/ Sodium (Chloride) 100 mls @ 200 mls/hr IV.SIG Q24H [facility] Last Admin: 02/09/18 12:38 Dose: 200 mls/hr Insulin Aspart (Novolog Insulin Correctional Sugar Inj) 0 unit SQ Q4HR [facility]; Protocol Last Admin: 02/10/18 08:33 Dose: 2 unit Lactulose (Lactulose Liq) 30 ml PO DAILY PRN PRN Reason: SEVERE CONSITIPATION Metoprolol Tartrate (Lopressor) 50 mg PO BID [facility] Last Admin: 02/10/18 08:34 Dose: 50 mg Miscellaneous (Pill Splitter) 1 each OTHER UNSCH PRN PRN Reason: SEE LABEL COMMENTS Miscellaneous Medication () 1 each OROPHARYNG 0000,0400,1200,1600 [facility] Last Admin: 02/10/18 03:03 Dose: Not Given Sennosides (Senokot) 17.2 mg PO Q12H PRN PRN Reason: Moderate Constipation Sodium Chloride (Ns Flush) 2 ml IV.FLUSH BID [facility] Last Admin: 02/09/18 20:51 Dose: 2 ml Sodium Chloride (Ns Flush) 2 ml IV.FLUSH UNSCH PRN PRN Reason: FLUSH AFTER USING IV ACCESS Spironolactone (Aldactone) 50 mg PO BID@0900,1800 [facility] Last Admin: 02/10/18 08:41 Dose: 50 mg Tramadol HCl (Ultram) 50 mg PO Q6H PRN PRN Reason: Pain 1-10 Last Admin: 02/08/18 23:00 Dose: 50 mg Whey (Beneprotein Powder) 1 packet G-TUBE TID [facility] Last Admin: 02/10/18 08:38 Dose: Not Given Allergies Allergy/AdvReac Type Severity Reaction Status Date / Time penicillin G Allergy Severe UNKNOWN Verified 01/31/18 02:06 Sulfa (Sulfonamide Allergy Severe UNKNOWN Verified 01/31/18 02:06 Antibiotics) ciprofloxacin AdvReac unknown Verified 02/03/18 11:14 Home Medications Medication Instructions Recorded Confirmed Type alprazolam 0.5 mg PO Q8HR PRN 01/31/18 01/31/18 History tramadol 50 mg PO Q6H PRN 01/31/18 01/31/18 History Physical Exam Vital signs: Vital Signs 02/09/18 12:00 02/09/18 13:00 02/09/18 14:00 Temperature Pulse Rate 84 92 H 90 Respiratory Rate Blood Pressure Pulse Oximetry 02/09/18 15:00 02/09/18 15:19 02/09/18 16:00 Temperature Pulse Rate 84 86 Respiratory Rate Blood Pressure Pulse Oximetry 95 02/09/18 17:00 02/09/18 18:00 02/09/18 18:50 Temperature 97.8 F Pulse Rate 106 H 100 H 84 Respiratory Rate 18 Blood Pressure 146/86 H Pulse Oximetry 96 02/09/18 19:00 02/09/18 20:00 02/09/18 21:00 Temperature Pulse Rate 95 H 105 H 104 H Respiratory Rate Blood Pressure Pulse Oximetry 98 02/09/18 22:00 02/09/18 23:00 02/10/18 00:00 Temperature 98.3 F Pulse Rate 98 H 100 H 83 Respiratory Rate 20 Blood Pressure 136/79 Pulse Oximetry 95 02/10/18 00:42 02/10/18 01:00 02/10/18 02:00 Temperature 98 F Pulse Rate 91 H 95 H 82 Respiratory Rate 16 Blood Pressure 139/86 Pulse Oximetry 98 02/10/18 03:00 02/10/18 04:00 02/10/18 04:10 Temperature 98 F Pulse Rate 88 94 H 91 H Respiratory Rate 18 17 Blood Pressure 153/88 H Pulse Oximetry 95 02/10/18 05:00 02/10/18 06:00 02/10/18 07:00 Temperature Pulse Rate 83 90 88 Respiratory Rate Blood Pressure Pulse Oximetry 02/10/18 07:53 02/10/18 08:00 Temperature 98.5 F Pulse Rate 90 Respiratory Rate 18 Blood Pressure 144/94 H Pulse Oximetry 95 96 Intake & Output 02/09/18 02/10/18 02/10/18 18:59 06:59 18:59 Intake Total 1480 / 1480 240 / 240 Output Total 200 / 200 Balance 1280 / 1280 240 / 240 Weight 88 kg Intake: IV 1000 / 1000 NS Inj 1,000 ML @ 42 mls/hr IV. 1000 / 1000 CONT .[id number] [facility] Rx#:[id number] Oral 480 / 480 240 / 240 Output: Urine 200 / 200 Other: # Incontinent Voids 4 3 Date of Last Bowel Movement 02/09/18 02/10/18 02/10/18 # Bowel Movements 2 1 - Urinary Catheter Management Indwelling Temp Sensing Catheter Cath placed during this visit: no Urethral indwelling: Yes Reason for continuing: Hourly intake/output Results 02/09/18 05:39 02/10/18 10:04 Cardiac Enzymes 02/09/18 Range/Units 05:39 AST 20 (15-37) U/L CBC 02/09/18 Range/Units 05:39 WBC 7.3 (4.0-11.0) th/mm3 RBC 3.74 L (4.00-5.30) mil/mm3 Hgb 10.7 L (11.6-15.3) gm/dL Hct 33.0 L (35.0-46.0) % Plt Count 269 (150-450) th/mm3 Neut # (Auto) 5.3 (1.8-7.7) th/mm3 Lymph # (Auto) 1.0 (1.0-4.8) th/mm3 [place] # (Auto) 0.7 (0.0-0.9) th/mm3 Eos # (Auto) 0.2 (0.0-0.4) th/mm3 Baso # (Auto) 0.0 (0.0-0.2) th/mm3 Comprehensive Metabolic Panel 02/09/18 02/10/18 Range/Units 05:39 10:04 Sodium 150 H 145 (136-145) meq/L Potassium 3.8 5.2 H D (3.5-5.1) meq/L Chloride 115 H 113 H (98-107) meq/L Carbon Dioxide 25.8 24.9 (21.0-32.0) meq/L BUN 28 H 19 H (7-18) mg/dL Creatinine 1.09 H 1.07 H (0.50-1.00) mg/dL Calcium 8.3 L 8.1 L (8.5-10.1) mg/dL AST 20 (15-37) U/L ALT 20 (10-53) U/L Alkaline Phosphatase 73 (45-117) U/L Total Protein 7.3 (6.4-8.2) g/dL Albumin 2.8 L (3.4-5.0) g/dL Intake and Output 02/09/18 02/10/18 02/10/18 22:59 06:59 14:59 Intake Total 1480 / 1480 240 / 240 Output Total 200 / 200 Balance 1280 / 1280 240 / 240 Intake: IV 1000 / 1000 NS Inj 1,000 ML @ 42 mls/hr IV. 1000 / 1000 CONT .[id number] [facility] Rx#:[id number] Oral 480 / 480 240 / 240 Output: Urine 200 / 200 Other: # Incontinent Voids 4 3 Date of Last Bowel Movement 02/09/18 02/10/18 02/10/18 # Bowel Movements 2 1 Weight 88 kg Assessment and Plan - Assessment (1) Frail elderly Code(s): R54 - Age-related physical debility Status: Acute (2) Acute myocardial infarction Code(s): I21.9 - Acute myocardial infarction, unspecified Status: Acute (3) Febrile illness Code(s): R50.9 - Fever, unspecified Status: Acute (4) Acute kidney injury Code(s): N17.9 - Acute kidney failure, unspecified Status: Acute (5) Atrial fibrillation Code(s): I48.91 - Unspecified atrial fibrillation Status: Acute (6) Cardiogenic shock Code(s): R57.0 - Cardiogenic shock Status: Acute (7) Acute hypoxemic respiratory failure Code(s): J96.01 - Acute respiratory failure with hypoxia Status: Acute (8) Pulmonary edema cardiac cause Code(s): I50.1 - Left ventricular failure, unspecified Status: Acute (9) Acute myocardial infarction Code(s): I21.9 - Acute myocardial infarction, unspecified Status: Acute - Plan 1) Acute myocardial infarction anteriorly 2) Cardiogenic shock 3) NSVT 4) LOLIS Clinically, hemodynamically stable. No recurrent angina. No overt CHF. Remains in atrial fib, normal HR's. REC 1) Continue physical therapy 2) Continue metoprolol, aspirin, clopidogrel. Add RHETT-I. 3) Dr. Peralta to decide tomorrow on discharge antiplatelet/ anticoagulation regimen.
--- NOTE | 2018-02-10 13:23 | P.PN ---
Subjective Interval history: Nursing reports the patient is complaining of her pured diet. Apparently to nursing she is very oriented today. I spoke to the nurse to take care of over the last 2 days otherwise and she bouts of orientation and disorientation. Physical Exam Vital signs: Vital Signs 02/09/18 14:00 02/09/18 15:00 02/09/18 15:19 Temperature Pulse Rate 90 84 Respiratory Rate Blood Pressure Pulse Oximetry 95 02/09/18 16:00 02/09/18 17:00 02/09/18 18:00 Temperature Pulse Rate 86 106 H 100 H Respiratory Rate Blood Pressure Pulse Oximetry 02/09/18 18:50 02/09/18 19:00 02/09/18 20:00 Temperature 97.8 F Pulse Rate 84 95 H 105 H Respiratory Rate 18 Blood Pressure 146/86 H Pulse Oximetry 96 98 02/09/18 21:00 02/09/18 22:00 02/09/18 23:00 Temperature 98.3 F Pulse Rate 104 H 98 H 100 H Respiratory Rate 20 Blood Pressure 136/79 Pulse Oximetry 95 02/10/18 00:00 02/10/18 00:42 02/10/18 01:00 Temperature 98 F Pulse Rate 83 91 H 95 H Respiratory Rate 16 Blood Pressure 139/86 Pulse Oximetry 98 02/10/18 02:00 02/10/18 03:00 02/10/18 04:00 Temperature Pulse Rate 82 88 94 H Respiratory Rate 18 Blood Pressure Pulse Oximetry 02/10/18 04:10 02/10/18 05:00 02/10/18 06:00 Temperature 98 F Pulse Rate 91 H 83 90 Respiratory Rate 17 Blood Pressure 153/88 H Pulse Oximetry 95 02/10/18 07:00 02/10/18 07:53 02/10/18 08:00 Temperature 98.5 F Pulse Rate 88 100 H Respiratory Rate 18 Blood Pressure 144/94 H Pulse Oximetry 95 96 02/10/18 09:00 02/10/18 10:00 02/10/18 12:00 Temperature Pulse Rate 94 H 78 82 Respiratory Rate Blood Pressure Pulse Oximetry Intake & Output 02/09/18 02/10/18 02/10/18 18:59 06:59 18:59 Intake Total 1580 / 1580 240 / 240 Output Total 200 / 200 Balance 1380 / 1380 240 / 240 Weight 88 kg Intake: IV 1100 / 1100 NS Inj 1,000 ML @ 42 mls/hr IV. 1000 / 1000 CONT .[id number] [facility] Rx#:[id number] INVanz Inj 1,000 MG In NS Inj 100 / 100 100 ML @ 200 mls/hr IV.SIG Q24H [facility] Rx#:[id number] Oral 480 / 480 240 / 240 Output: Urine 200 / 200 Other: # Incontinent Voids 4 3 Date of Last Bowel Movement 02/09/18 02/10/18 02/10/18 # Bowel Movements 2 1 Narrative: Heart sounds regular rate rhythm, no murmurs Clear lungs bilaterally, unlabored breathing 5/5 proximal upper and lower extremity strength bilaterally, no facial droop, no slurred speech, alert and oriented x3, insight intact towards hospitalization Patient is very verbal, very energetic - Urinary Catheter Management Indwelling Temp Sensing Catheter Cath placed during this visit: no Urethral indwelling: Yes Reason for continuing: Hourly intake/output Results - Labs CBC & Chem 7: 02/14/18 07:59 02/15/18 08:38 Laboratory Results - last 24 hr 02/09/18 02/09/18 02/10/18 18:48 20:50 00:33 Sodium Potassium Chloride Carbon Dioxide Anion Gap BUN Creatinine Estimated GFR POC Glucose 229 H 256 H 250 H Random Glucose Calcium 02/10/18 02/10/18 02/10/18 03:38 07:58 10:04 Sodium 145 Potassium 5.2 H D Chloride 113 H Carbon Dioxide 24.9 Anion Gap 7 BUN 19 H Creatinine 1.07 H Estimated GFR 48 L POC Glucose 232 H 178 H Random Glucose 157 H Calcium 8.1 L 02/10/18 11:55 Sodium Potassium Chloride Carbon Dioxide Anion Gap BUN Creatinine Estimated GFR POC Glucose 137 H Random Glucose Calcium Assessment and Plan - Plan 87-year-old female who was just discharged on 01/28 after having a PCI for NSTEMI now admitted with multiorgan failure (acute renal insufficiency, cardiogenic shock, resp failure), to the ICU requiring intubation and mechanical ventilation. Suffered an another NSTEMI, now status LUZMARIA to LAD on with systolic heart failure noted with a EF of 30%. Is on the intermediate care floor now doing well on room air. She is currently rate controlled with metoprolol for her A. fib. There is a concern for falling should the patient be anticoagulated. Was found to have ESBL positive UTI, on Invanz per infectious disease. Dysphagia We will obtain head MRI to rule out stroke Speech therapy to continue to follow Recent MA -Continue antiplatelet therapy (ASA, Plavix) -Status post PCI with LAD stent (LUZMARIA) 02/03/[address] Peralta -Aldactone 50 mg twice daily -Continue beta-blockers metoprolol 25 mg p.o. 3 times daily -Repeat echo February 06, 2018 with EF of 30% Atrial fibrillation -Currently rate controlled on metoprolol -Currently on DAPT and subcu heparin, if A. fib persists may need full anticoagulation -Cardiology to discuss with family for possible starting oral anticoagulation versus others Hyperlipidemia -On Statin Diabetes mellitus, poorly controlled -Currently on Medium correction sliding scale insulin protocol UTI , ESBL -Currently on ertapenem per ID Prophylaxis -Heparin sq -Pepcid -PT/OT Discharge Planning: Can be discharged on cleared from cardiology standpoint and antiplatelets and anticoagulation have been addressed and SNF has been arranged. Pt has intermittent confusion, not reliable to make her own decisions at this time. Granddaughter Treva is main point of contact and health care decision making as pt's own son defers updates and decisions to granddaughter who is a healthcare professional, permission granted by patient. In total, the time spent with the patient was over 35 minute of which more than 50% of patient care was spent discussing her care and counseling the corresponding caregivers.
--- NOTE | 2018-02-10 18:49 | MR ---
EXAM DATE: 02/10/2018 6:27 PM EST AGE/SEX: 87 years / Female INDICATIONS: Altered mental status. CLINICAL DATA: This is the patient's initial encounter. Patient reports that signs and symptoms have been present for 1 day and indicates a pain score of 0/10. MEDICAL/SURGICAL HISTORY: Chronic renal insufficiency. Hypertension. Carcinoma, rectal. Appen dectomy. Hysterectomy. Coronary artery stent. COMPARISON: No prior exams available for comparison. TECHNIQUE: Multiplanar, multisequence examination of the brain was performed without contrast. FINDINGS: There is no intracranial mass or midline shift. No hydrocephalus. Minimal white matter ischemic fang es. No abnormal extra-axial fluid collections. No sellar mass. There is cortical volume loss. CONCLUSION: 1. No acute findings. No recent infarct identified. Electronically signed by: Moris Smith MD 02/10/2018 6:48 PM EST
[2018-02-10] MEDS: ALPRAZolam 0.5 MG Tablet PO PRN (19:30)
[2018-02-11] MEDS: Insulin NovoLOG Aspart Correctional Sugar Inj SQ SCH ×4 (04:03→21:12)
[2018-02-11] MEDS: Oral Hygiene Kit OROPHARYNG SCH ×2 (04:04→12:22)
[2018-02-11] MEDS: Heparin - SQ 10,000 UNITS/ML Vial SQ SCH ×2 (06:25→21:13)
[2018-02-11] MEDS: Metoprolol Tartrate 25 MG Tablet PO SCH ×2 (09:46→21:14)
[2018-02-11] MEDS: Famotidine PF Inj 20 MG/2 ML Vial IV.PUSH SCH ×2 (09:46→21:14)
[2018-02-11] MEDS: Chlorhexidine 0.12% Oral Kit 15 ML UDC OROPHARYNG SCH ×2 (09:47→21:13)
[2018-02-11] MEDS: Beneprotein Powder Packet G-TUBE SCH (09:48)
[2018-02-11] MEDS: Spironolactone 25 MG Tablet PO SCH (09:50)
--- NOTE | 2018-02-11 13:17 | P.PNID ---
Subjective Remarks: extubated on RA RN reported cnfusion earlier today she is now oriented x 2 and her speech is normal MR negative Antibiotics: ertapenem Allergies/Adverse Reactions: Allergies penicillin G Allergy (Severe, Verified 01/31/18 02:06) UNKNOWN Sulfa (Sulfonamide Antibiotics) Allergy (Severe, Verified 01/31/18 02:06) UNKNOWN ciprofloxacin Adverse Reaction (Verified 02/03/18 11:14) unknown Objective Vital Signs 02/10/18 14:00 02/10/18 15:00 02/10/18 16:00 Temperature Pulse Rate 94 H 93 H 90 Respiratory Rate 18 Blood Pressure 129/80 Pulse Oximetry 96 02/10/18 17:00 02/10/18 17:04 02/10/18 18:00 Temperature Pulse Rate 90 92 H Respiratory Rate Blood Pressure Pulse Oximetry 95 02/10/18 19:32 02/10/18 20:00 02/10/18 21:00 Temperature 98.2 F Pulse Rate 95 H 90 90 Respiratory Rate 16 Blood Pressure 138/88 Pulse Oximetry 96 02/10/18 22:00 02/10/18 23:00 02/10/18 23:57 Temperature Pulse Rate 74 82 93 H Respiratory Rate 16 Blood Pressure 115/60 Pulse Oximetry 97 02/11/18 00:00 02/11/18 01:00 02/11/18 02:00 Temperature Pulse Rate 78 82 80 Respiratory Rate Blood Pressure Pulse Oximetry 02/11/18 03:00 02/11/18 04:00 02/11/18 05:00 Temperature Pulse Rate 84 86 88 Respiratory Rate 16 Blood Pressure 128/70 Pulse Oximetry 97 02/11/18 06:00 02/11/18 07:00 02/11/18 08:00 Temperature 98 F Pulse Rate 84 94 H 97 H Respiratory Rate 18 Blood Pressure 150/84 H Pulse Oximetry 98 02/11/18 12:02 Temperature Pulse Rate Respiratory Rate Blood Pressure Pulse Oximetry 98 Intake & Output 02/10/18 02/11/18 02/11/18 18:59 06:59 18:59 Intake Total 100 / 100 1240 / 1240 Output Total 200 / 200 Balance 100 / 100 1040 / 1040 Weight 87.2 kg Intake: IV 100 / 100 1000 / 1000 INVanz Inj 1,000 MG In NS Inj 100 / 100 100 ML @ 200 mls/hr IV.SIG Q24H [facility] Rx#:[id number] Oral 240 / 240 Output: Urine 200 / 200 Other: # Incontinent Voids 2 Date of Last Bowel Movement 02/10/18 02/11/18 02/11/18 # Bowel Movements 2 02/03/18 02:37 Blood - Peripheral Aerobic Blood Culture - Final No growth in 5 days 02/03/18 02:37 Blood - Peripheral Anaerobic Blood Culture - Final No growth in 5 days Lab - Chemistry Results 02/09/18 02/09/18 02/10/18 18:48 20:50 00:33 Sodium Potassium Chloride Carbon Dioxide Anion Gap BUN Creatinine Estimated GFR POC Glucose 229 H 256 H 250 H Random Glucose Calcium 02/10/18 02/10/18 02/10/18 03:38 07:58 10:04 Sodium 145 Potassium 5.2 H D Chloride 113 H Carbon Dioxide 24.9 Anion Gap 7 BUN 19 H Creatinine 1.07 H Estimated GFR 48 L POC Glucose 232 H 178 H Random Glucose 157 H Calcium 8.1 L 02/10/18 02/10/18 02/10/18 11:55 16:21 20:16 Sodium Potassium Chloride Carbon Dioxide Anion Gap BUN Creatinine Estimated GFR POC Glucose 137 H 247 H 385 H Random Glucose Calcium 02/10/18 02/11/18 02/11/18 23:45 03:58 07:54 Sodium Potassium Chloride Carbon Dioxide Anion Gap BUN Creatinine Estimated GFR POC Glucose 197 H 190 H 183 H Random Glucose Calcium 02/11/18 11:35 Sodium Potassium Chloride Carbon Dioxide Anion Gap BUN Creatinine Estimated GFR POC Glucose 260 H Random Glucose Calcium Imaging: ITS Impressions Abdomen/Bladder Ultrasound 02/02/18 00:00 CONCLUSION: 1. Increased renal echogenicity typical of chronic parenchymal changes. 2. No evidence of acute obstructive uropathy. 3. Small bilateral benign-appearing cysts. Abdomen/Pelvis CT 02/02/18 00:00 CONCLUSION: 1. No acute abnormalities are seen in the abdomen or pelvis. 2. Mildly atrophic left kidney with vascular calcifications. 3. Aortoiliac atherosclerosis. No aneurysm. 4. Cholelithiasis. 5. Bilateral small pleural effusions and mild to moderate basilar atelectasis. 6. Coronary artery calcification. 7. Nonspecific mass of the visualized left breast. Last mammogram in our system was 2012. Up-to-date bilateral mammography with a diagnostic left breast mammogram recommended. Chest X-Ray 02/06/18 06:00 CONCLUSION: Interval extubation. Stable aeration. Head MRI 02/10/18 10:53 CONCLUSION: 1. No acute findings. No recent infarct identified. Physical Exam: GENERAL: NAD lethargic but arousable SKIN: Warm and dry. No rash EYES: Pupils equal and round. No scleral icterus. No injection or drainage. ENT: No nasal bleeding or discharge. Mucous membranes pink and dry CARDIOVASCULAR: irregular rate and rhythm. no murmurs RESPIRATORY: No accessory muscle use. Clear to auscultation. Breath sounds equal bilaterally. GASTROINTESTINAL: Abdomen soft, non-tender, mildly distended. Hepatic and splenic margins not palpable. MUSCULOSKELETAL: Extremities without clubbing, cyanosis, or edema. No obvious deformities. : dunne in place with clear urine NEUROLOGICAL: lethargic, easily arousable, oriented x 2 normal speech moves all 4 extremeties PSYCHIATRIC: calm and cooperative Assessment and Plan - Plan NSTEMI sp stenting of LAD ? Sespsis Fever UTI , ESBL + organism H/o rectal cancer 3 yrs ago no intraabd pathology on the CT PNA vs pulmonanry edema cl P critical , unstab;e pt dw pt's GD: allergic to cipro, sulfa, PCN per records, no details Took keflex uneventfully recently (< 5 yrs) MS change -resolving ? cont Ertapenem 1 gm daily x 14 days ( thru 02/18) fu clinically fu WBC will repeat UA, C+S chk c.diff if cont with diarrhea jose RN
--- NOTE | 2018-02-11 13:22 | P.PN ---
Subjective Interval history: Follow-up acute respiratory failure/non-ST elevation DC/cardiogenic shock February 11, 2018-patient seen and examined, alert and oriented x2. Vital stable. Tolerated p.o. States she wants to be out of this place. Physical Exam Vital signs: Vital Signs 02/10/18 14:00 02/10/18 15:00 02/10/18 16:00 Temperature Pulse Rate 94 H 93 H 90 Respiratory Rate 18 Blood Pressure 129/80 Pulse Oximetry 96 02/10/18 17:00 02/10/18 17:04 02/10/18 18:00 Temperature Pulse Rate 90 92 H Respiratory Rate Blood Pressure Pulse Oximetry 95 02/10/18 19:32 02/10/18 20:00 02/10/18 21:00 Temperature 98.2 F Pulse Rate 95 H 90 90 Respiratory Rate 16 Blood Pressure 138/88 Pulse Oximetry 96 02/10/18 22:00 02/10/18 23:00 02/10/18 23:57 Temperature Pulse Rate 74 82 93 H Respiratory Rate 16 Blood Pressure 115/60 Pulse Oximetry 97 02/11/18 00:00 02/11/18 01:00 02/11/18 02:00 Temperature Pulse Rate 78 82 80 Respiratory Rate Blood Pressure Pulse Oximetry 02/11/18 03:00 02/11/18 04:00 02/11/18 05:00 Temperature Pulse Rate 84 86 88 Respiratory Rate 16 Blood Pressure 128/70 Pulse Oximetry 97 02/11/18 06:00 02/11/18 07:00 02/11/18 08:00 Temperature 98 F Pulse Rate 84 94 H 97 H Respiratory Rate 18 Blood Pressure 150/84 H Pulse Oximetry 98 02/11/18 12:02 Temperature Pulse Rate Respiratory Rate Blood Pressure Pulse Oximetry 98 Intake & Output 02/10/18 02/11/18 02/11/18 18:59 06:59 18:59 Intake Total 100 / 100 1240 / 1240 Output Total 200 / 200 Balance 100 / 100 1040 / 1040 Weight 87.2 kg Intake: IV 100 / 100 1000 / 1000 INVanz Inj 1,000 MG In NS Inj 100 / 100 100 ML @ 200 mls/hr IV.SIG Q24H [facility] Rx#:[id number] Oral 240 / 240 Output: Urine 200 / 200 Other: # Incontinent Voids 2 Date of Last Bowel Movement 02/10/18 02/11/18 02/11/18 # Bowel Movements 2 Narrative: GENERAL: NAD SKIN: Warm and dry. HEAD: Normocephalic. EYES: No scleral icterus. No injection or drainage. NECK: Supple, trachea midline. No JVD or lymphadenopathy. CARDIOVASCULAR: Regular rate and rhythm without murmurs, gallops, or rubs. RESPIRATORY: Breath sounds equal bilaterally. No accessory muscle use. GASTROINTESTINAL: Abdomen soft, non-tender, nondistended. MUSCULOSKELETAL: No cyanosis, or edema. BACK: Nontender without obvious deformity. No CVA tenderness. - Urinary Catheter Management Indwelling Temp Sensing Catheter Cath placed during this visit: no Urethral indwelling: Yes Reason for continuing: Hourly intake/output Results - Labs CBC & Chem 7: 02/09/18 05:39 02/10/18 10:04 Laboratory Results - last 24 hr 02/10/18 02/10/18 02/10/18 16:21 20:16 23:45 POC Glucose 247 H 385 H 197 H 02/11/18 02/11/18 02/11/18 03:58 07:54 11:35 POC Glucose 190 H 183 H 260 H - Imaging Impressions Head MRI 02/10/18 10:53 CONCLUSION: 1. No acute findings. No recent infarct identified. Assessment and Plan - Plan 87-year-old female with: Acute hypoxemic respiratory failure-resolved -Maintain oxygen saturation above 92% -DuoNeb every hours as needed, EzPAP Acute myocardial infarction -Continue antiplatelet therapy (ASA, Plavix) -Status post PCI with LAD stent (LUZMARIA) 02/03/[address] Peralta -Aldactone 50 mg twice daily -Management per cardiology Ischemic cardiomyopathy -Continue beta-blockers metoprolol 50 mg p.o. 2 times daily, enalapril 10 mg twice daily -Repeat echo February 06, 2018 with EF of 30% Atrial fibrillation -Currently rate controlled -Continue metoprolol 50mg BID -Currently on DAPT and subcu heparin, if A. fib persists may need full anticoagulation -Cardiology to discuss with family for possible starting oral anticoagulation versus others Hyperlipidemia -On Statin Acute kidney injury-resolved -Avoid nephrotoxins -Nephrology signed off Diabetes mellitus, poorly controlled -Currently on Medium correction sliding scale insulin protocol UTI , ESBL + organism -Currently on ertapenem and monitor culture report -Management per ID Prophylaxis -Heparin sq -Pepcid -PT/OT
--- NOTE | 2018-02-11 14:33 | P.PNPAL ---
Reason for Visit Reason for visit: a. To assist with evaluation and management of symptoms including: Weakness, confusion, anxiety b. To assist medical decision maker(s) with: better understanding of current medical conditions; weighing benefits/burdens of medical treatment options; making medical treatment decisions. Subjective Subjective/Interval History: This is an 87-year-old female with a past medical history of diabetes, hypertension, rectal cancer in remission, anxiety, depression, coronary artery disease status post stent, former smoker who presented to the emergency department 01/31/2018 plane of chest pain, substernal, pressure, nonradiating, persistent, which resolved with aspirin and sublingual nitro given to her by EMS. She had taken a Xanax earlier to try and help her sleep. Her presenting troponin was 1.25 did she had been seen in the ED on 01/28 and had troponin levels of 0.11, 0.96, 1.08. She was diagnosed with a non-STEMI and seen by cardiology. Cardiac catheterization was held secondary to renal insufficiency. Nephrology consultation was requested for further evaluation. Patient seen for follow-up of symptom management for weakness, confusion and anxiety and to assist family in goals of medical treatment. Patient continues to require wrist restraints intermittently, mostly overnight as occurs. She is currently out of restraints, appropriate, not attempting to disturb tubes or catheters. She is not attempting to get out of bed. Her confusion is intermittent, mild, worsens in the evening, clears during the day, associated with baseline early memory loss. She has been incontinent of both bowel and bladder. She is participating with physical therapy, progressing with mobility, able to ambulate to the bathroom with walker and 1-2 assists. She requires frequent cueing for upright posture as she becomes very forward flexed with impaired balance. Recommendation of skilled PT with possible transition to assisted living. At this time it is questionable whether she will ever be able to return to independent living. Her anxiety is improving as her confusion clears. She states her anxiety is worse at night, worsened by restraints but can identify no specific exacerbating or relieving factors. She received only 1 dose of Xanax 0.5 mg in the prior 24 hours, however required 4 doses of 0.5 mg Xanax the prior day. . Family/Friend Interactions: Spoke with patient's granddaughter via telephone and updated her as to current clinical status, findings of PT, OT, ST evaluations. Confusion overnight with clearing today, currently not in restraints. Continues to have memory loss, with some question as to her ability to ever live independently again. Family remains aggressive in their goals to maximize rehabilitation, however are in favor of considering assisted living placement if patient will agree. 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 Order placed. . Advance Directives Living Will: Copy in medical record Health Care Surrogate: Copy in medical record Health Care Surrogate Name and Number: Treva Arvizu Objective Vital Signs: Vital Signs 02/10/18 15:00 02/10/18 16:00 02/10/18 17:00 Temperature Pulse Rate 93 H 90 90 Respiratory Rate 18 Blood Pressure 129/80 Pulse Oximetry 96 02/10/18 17:04 02/10/18 18:00 02/10/18 19:32 Temperature Pulse Rate 92 H 95 H Respiratory Rate Blood Pressure Pulse Oximetry 95 02/10/18 20:00 02/10/18 21:00 02/10/18 22:00 Temperature 98.2 F Pulse Rate 90 90 74 Respiratory Rate 16 Blood Pressure 138/88 Pulse Oximetry 96 02/10/18 23:00 02/10/18 23:57 02/11/18 00:00 Temperature Pulse Rate 82 93 H 78 Respiratory Rate 16 Blood Pressure 115/60 Pulse Oximetry 97 02/11/18 01:00 02/11/18 02:00 02/11/18 03:00 Temperature Pulse Rate 82 80 84 Respiratory Rate Blood Pressure Pulse Oximetry 02/11/18 04:00 02/11/18 05:00 02/11/18 06:00 Temperature Pulse Rate 86 88 84 Respiratory Rate 16 Blood Pressure 128/70 Pulse Oximetry 97 02/11/18 07:00 02/11/18 08:00 02/11/18 12:02 Temperature 98 F Pulse Rate 94 H 97 H Respiratory Rate 18 Blood Pressure 150/84 H Pulse Oximetry 98 98 Intake & Output 02/10/18 02/11/18 02/11/18 18:59 06:59 18:59 Intake Total 100 / 100 1240 / 1240 Output Total 200 / 200 Balance 100 / 100 1040 / 1040 Weight 192 lb 3.889 oz Intake: IV 100 / 100 1000 / 1000 INVanz Inj 1,000 MG In NS Inj 100 / 100 100 ML @ 200 mls/hr IV.SIG Q24H [facility] Rx#:[id number] Oral 240 / 240 Output: Urine 200 / 200 Other: # Incontinent Voids 2 Date of Last Bowel Movement 02/10/18 02/11/18 02/11/18 # Bowel Movements 2 Physical Exam: CONSTITUTIONAL/GENERAL: This is an adequately nourished patient, lying in bed, awake, talkative in no apparent distress. TUBES/LINES/DRAINS: PIV CARDIOVASCULAR: Irregular rhythm, controlled rate without murmurs, gallops, or rubs. No JVD. Peripheral pulses symmetric. RESPIRATORY/CHEST: Symmetric, unlabored respirations. Clear to auscultation. Breath sounds equal bilaterally. No wheezes, rales, or rhonchi. GASTROINTESTINAL: Abdomen soft, non-tender, nondistended. No hepato-splenomegaly , or palpable masses. No guarding. Bowel sounds present. GENITOURINARY: Without palpable bladder distension. MUSCULOSKELETAL: Extremities without clubbing, cyanosis, or edema. No joint tenderness or effusion noted. No calf tenderness. No mottling or clubbing. NEUROLOGICAL: Awake, alert, conversant, speech clear, motor and sensory grossly within normal limits with global weakness. Follows commands. Moves all extremities. PSYCHIATRIC: Complains of anxiety, particularly overnight and when restrained. . Diagnostic Tests Laboratory: Laboratory Results - last 72 hr 02/08/18 02/08/18 02/09/18 17:04 23:05 01:29 WBC RBC Hgb Hct MCV MCH MCHC RDW Plt Count MPV Neut % (Auto) Lymph % (Auto) [place] % (Auto) Eos % (Auto) Baso % (Auto) Neut # (Auto) Lymph # (Auto) [place] # (Auto) Eos # (Auto) Baso # (Auto) WBC Differential Differential Comment Sodium Potassium Chloride Carbon Dioxide Anion Gap BUN Creatinine Estimated GFR POC Glucose 300 H 273 H 225 H Random Glucose Calcium Total Bilirubin AST ALT Alkaline Phosphatase Total Protein Albumin 02/09/18 02/09/18 02/09/18 04:39 05:39 05:39 WBC 7.3 RBC 3.74 L Hgb 10.7 L Hct 33.0 L MCV 88.3 MCH 28.5 MCHC 32.3 RDW 15.9 Plt Count 269 MPV 8.9 Neut % (Auto) 73.0 H Lymph % (Auto) 14.2 [place] % (Auto) 9.5 H Eos % (Auto) 2.7 Baso % (Auto) 0.6 Neut # (Auto) 5.3 Lymph # (Auto) 1.0 [place] # (Auto) 0.7 Eos # (Auto) 0.2 Baso # (Auto) 0.0 WBC Differential . Differential Comment Auto diff final Sodium 150 H Potassium 3.8 Chloride 115 H Carbon Dioxide 25.8 Anion Gap 9 BUN 28 H Creatinine 1.09 H Estimated GFR 47 L POC Glucose 127 H Random Glucose 113 H Calcium 8.3 L Total Bilirubin 0.3 AST 20 ALT 20 Alkaline Phosphatase 73 Total Protein 7.3 Albumin 2.8 L 02/09/18 02/09/18 02/09/18 08:56 12:31 18:48 WBC RBC Hgb Hct MCV MCH MCHC RDW Plt Count MPV Neut % (Auto) Lymph % (Auto) [place] % (Auto) Eos % (Auto) Baso % (Auto) Neut # (Auto) Lymph # (Auto) [place] # (Auto) Eos # (Auto) Baso # (Auto) WBC Differential Differential Comment Sodium Potassium Chloride Carbon Dioxide Anion Gap BUN Creatinine Estimated GFR POC Glucose 164 H 215 H 229 H Random Glucose Calcium Total Bilirubin AST ALT Alkaline Phosphatase Total Protein Albumin 02/09/18 02/10/18 02/10/18 20:50 00:33 03:38 WBC RBC Hgb Hct MCV MCH MCHC RDW Plt Count MPV Neut % (Auto) Lymph % (Auto) [place] % (Auto) Eos % (Auto) Baso % (Auto) Neut # (Auto) Lymph # (Auto) [place] # (Auto) Eos # (Auto) Baso # (Auto) WBC Differential Differential Comment Sodium Potassium Chloride Carbon Dioxide Anion Gap BUN Creatinine Estimated GFR POC Glucose 256 H 250 H 232 H Random Glucose Calcium Total Bilirubin AST ALT Alkaline Phosphatase Total Protein Albumin 02/10/18 02/10/18 02/10/18 07:58 10:04 11:55 WBC RBC Hgb Hct MCV MCH MCHC RDW Plt Count MPV Neut % (Auto) Lymph % (Auto) [place] % (Auto) Eos % (Auto) Baso % (Auto) Neut # (Auto) Lymph # (Auto) [place] # (Auto) Eos # (Auto) Baso # (Auto) WBC Differential Differential Comment Sodium 145 Potassium 5.2 H D Chloride 113 H Carbon Dioxide 24.9 Anion Gap 7 BUN 19 H Creatinine 1.07 H Estimated GFR 48 L POC Glucose 178 H 137 H Random Glucose 157 H Calcium 8.1 L Total Bilirubin AST ALT Alkaline Phosphatase Total Protein Albumin 02/10/18 02/10/18 02/10/18 16:21 20:16 23:45 WBC RBC Hgb Hct MCV MCH MCHC RDW Plt Count MPV Neut % (Auto) Lymph % (Auto) [place] % (Auto) Eos % (Auto) Baso % (Auto) Neut # (Auto) Lymph # (Auto) [place] # (Auto) Eos # (Auto) Baso # (Auto) WBC Differential Differential Comment Sodium Potassium Chloride Carbon Dioxide Anion Gap BUN Creatinine Estimated GFR POC Glucose 247 H 385 H 197 H Random Glucose Calcium Total Bilirubin AST ALT Alkaline Phosphatase Total Protein Albumin 02/11/18 02/11/18 02/11/18 03:58 07:54 11:35 WBC RBC Hgb Hct MCV MCH MCHC RDW Plt Count MPV Neut % (Auto) Lymph % (Auto) [place] % (Auto) Eos % (Auto) Baso % (Auto) Neut # (Auto) Lymph # (Auto) [place] # (Auto) Eos # (Auto) Baso # (Auto) WBC Differential Differential Comment Sodium Potassium Chloride Carbon Dioxide Anion Gap BUN Creatinine Estimated GFR POC Glucose 190 H 183 H 260 H Random Glucose Calcium Total Bilirubin AST ALT Alkaline Phosphatase Total Protein Albumin Result Diagrams: 02/09/18 05:39 02/10/18 10:04 Microbiology: Microbiology 02/03/18 02:37 Aerobic Blood Culture - Final Blood - Peripheral No growth in 5 days Anaerobic Blood Culture - Final No growth in 5 days Imaging: Chest X-Ray 01/31/18 02:15 CONCLUSION: No significant change mild left base atelectasis. Otherwise within normal limits. Abdomen/Bladder Ultrasound 02/02/18 00:00 CONCLUSION: 1. Increased renal echogenicity typical of chronic parenchymal changes. 2. No evidence of acute obstructive uropathy. 3. Small bilateral benign-appearing cysts. Abdomen/Pelvis CT 02/02/18 00:00 CONCLUSION: 1. No acute abnormalities are seen in the abdomen or pelvis. 2. Mildly atrophic left kidney with vascular calcifications. 3. Aortoiliac atherosclerosis. No aneurysm. 4. Cholelithiasis. 5. Bilateral small pleural effusions and mild to moderate basilar atelectasis. 6. Coronary artery calcification. 7. Nonspecific mass of the visualized left breast. Last mammogram in our system was 2012. Up-to-date bilateral mammography with a diagnostic left breast mammogram recommended. Chest X-Ray 02/02/18 00:00 CONCLUSION: Worsening aeration Chest X-Ray 02/02/18 00:00 CONCLUSION: 1. Endotracheal tube and nasogastric tube in place. 2. Slight increase in hazy opacity at the right lung base. Patchy opacity left lung base partially visualized. Chest X-Ray 02/03/18 00:00 CONCLUSION: Endotracheal tube tip is a bit deep Improving aeration Chest X-Ray 02/04/18 10:43 CONCLUSION: Minimal left basilar density and probable small pleural effusion. Chest X-Ray 02/05/18 08:20 CONCLUSION: No acute cardiopulmonary disease. Chest X-Ray 02/06/18 06:00 CONCLUSION: Interval extubation. Stable aeration. Head MRI 02/10/18 10:53 CONCLUSION: 1. No acute findings. No recent infarct identified. Procedures: 02/02: Intubation 02/05: Extubation . Assessment and Plan - Disease Oriented Problem List (1) Non-ST elevated myocardial infarction (non-STEMI) (2) Acute kidney injury (3) Type 2 diabetes mellitus (4) Acute hypoxemic respiratory failure (5) Pulmonary edema cardiac cause (6) Acute myocardial infarction (7) Atrial fibrillation (8) Cardiogenic shock Pertinent Non-Medical Issues: Psychosocial: She was born in [facility] and lived there most of her life. She was however her passed in 1983. She moved to [place] in the early s. 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 She has 1 son. Spiritual: [employer] available. Legal: Living will on the chart with healthcare surrogate. Ethical issues impacting care: None noted. . Important Contacts: Granddaughter: Treva Arvizu Son: Vicky Arvizu . Prognosis: Her prognosis is guarded. She is of advanced age at 87 and showing signs of decline. In addition to renal insufficiency she has multiple cardiac risk factors to include hypertension, hyperlipidemia, obesity with BMI 30.8 kg/m, diabetes with a hemoglobin A1c 7.8 and evidence of at minimum a non-STEMI. Cardiac catheterization per the kier tender report would be a high risk/"heroic " procedure. She is also febrile with no known source of infection. Urinalysis has been negative on 01/29 and 01/31, influenza is negative and blood cultures are negative times 1 day. Empiric antibiotic coverage is being initiated as cultures are pending. She is at increased risk of continued hospitalizations, complications and decline. . Code Status: Full Code Plan: PLAN: Legal decision maker: Patient at this time is confused and not capacitated for decision-making. It is uncertain if she will regain capacity. Living will and healthcare surrogate on the chart name her granddaughter Treva and Treva's brother Gonzalez as joint healthcare surrogate's. Gonzalez is a member of the [employer] currently regarding the president and unavailable. Goals: Aggressive CODE STATUS: FULL CODE SYMPTOMS: * Confusion: Continues to have sundowners overnight with confusion and tries to get out of bed, placing her at risk for fall, thereby requiring restraints. This exacerbates her anxiety. Out of restraints today, confusion clearing. During the day * Weakness: Globally weak. At baseline, prior to admission, used walker/ wheelchair. Now requires 2 person maximum assistance plus walker. Family and patient goals aggressive. Requesting rehabilitation. Mack following. Participating in PT 7 days a week, with slow improvement. Recommend OOB to chair TID to improve core strength. * Anxiety: Anxiety occurs mostly overnight when experiencing sundowning and requiring restraints to prevent her getting out of bed and falling. Xanax has been unsuccessful in controlling symptoms. Would recommend Seroquel 25mg at bedtime to facilitate better sleep. Palliative care will continue to follow the patient during hospital course as condition evolves, to assist patient/decision-maker with understanding of their medical conditions, weighing benefits/burdens of treatment options, for clarification of goals of treatment. Additionally will assist with any symptoms of palliative concern. . Attestation Attestation: To help prompt me to consider important information that might be impacting today's encounter and assessment, information from prior notes written by myself or my colleagues may have been "brought forward" into today's note. My signature on this note, however, is an attestation that I personally performed the exam, history, and/or decision-making noted today, and, unless otherwise indicated, the interactions with patient, family, and staff as well as the review of records all occurred today. I also attest that the listed assessment and stated plan reflect my best clinical judgment today based on the combination of historical information, prior notes, and today's exam/ interactions. When time spent is documented, it refers only to time spent today by the signer, or if indicated, combined time spent today by collaborating physician/nurse practitioner. .
[2018-02-11] MEDS: QUEtiapine 25 MG Tablet PO SCH (21:15)
--- NOTE | 2018-02-11 21:57 | P.PNCA ---
Subjective Interval history: No events over the weekend Appears well in bed with friend at the bedside Medications and Allergies Active Medications: Active Medications Acetaminophen (Tylenol) 500 mg PO Q4H PRN PRN Reason: FEVER > 100.4 F Last Admin: 02/03/18 22:56 Dose: 500 mg Al Hydroxide/Mg Hydroxide (Milk Of Magnpiper Liq) 30 ml PO Q12H PRN PRN Reason: Mild Constipation Albuterol (Duoneb Neb (Prn)) 1 ampul NEB Q2HR NEB PRN PRN Reason: SHORTNESS OF BREATH Alprazolam (Xanax) 0.5 mg PO Q8H PRN PRN Reason: ANXIETY Last Admin: 02/02/18 05:26 Dose: 0.5 mg Alprazolam (Xanax) 0.5 mg PO Q8H PRN PRN Reason: ANXIETY Last Admin: 02/10/18 19:30 Dose: 0.5 mg Aspirin (Ecotrin) 81 mg PO DAILY [facility] Last Admin: 02/11/18 09:47 Dose: 81 mg Atorvastatin Calcium (Lipitor) 40 mg PO HS [facility] Last Admin: 02/11/18 21:13 Dose: 40 mg Bisacodyl (Dulcolax Supp) 10 mg RECTAL DAILY PRN PRN Reason: SEVERE CONSITIPATION Chlorhexidine Gluconate (Peridex 0.12% Oral Kit) 15 ml OROPHARYNG BID@0800, 2000 [facility] Last Admin: 02/11/18 21:13 Dose: Not Given Clopidogrel Bisulfate (Plavix) 75 mg PO DAILY [facility] Last Admin: 02/11/18 09:46 Dose: 75 mg Dextrose (D50w Vial) 50 ml IV.PUSH UNSCH PRN PRN Reason: PER HYPOGLYCEMIA PROTOCOL Enalapril Maleate (Vasotec) 10 mg PO BID [facility] Last Admin: 02/11/18 21:15 Dose: 10 mg Famotidine (Pepcid Pf Inj) 10 mg IV.PUSH Q12HR [facility] Last Admin: 02/11/18 21:14 Dose: 10 mg Glucagon (Glucagon Inj) 1 mg OTHER PRN PRN PRN Reason: for Hypoglycemia Protocol Heparin Sodium (Porcine) (Heparin Inj) 5,000 units SQ Q8HR [facility] Last Admin: 02/11/18 21:13 Dose: 5,000 units Ertapenem 1,000 mg/ Sodium (Chloride) 100 mls @ 200 mls/hr IV.SIG Q24H [facility] Last Infusion: 02/11/18 12:36 Dose: Infused Insulin Aspart (Novolog Insulin Correctional Sugar Inj) 0 unit SQ Q4HR [facility]; Protocol Last Admin: 02/11/18 21:12 Dose: 7 unit Lactulose (Lactulose Liq) 30 ml PO DAILY PRN PRN Reason: SEVERE CONSITIPATION Metoprolol Tartrate (Lopressor) 50 mg PO BID [facility] Last Admin: 02/11/18 21:14 Dose: 50 mg Miscellaneous (Pill Splitter) 1 each OTHER UNSCH PRN PRN Reason: SEE LABEL COMMENTS Miscellaneous Medication () 1 each OROPHARYNG 0000,0400,1200,1600 [facility] Last Admin: 02/11/18 12:22 Dose: Not Given Quetiapine Fumarate (Seroquel) 25 mg PO HS [facility] Last Admin: 02/11/18 21:15 Dose: 25 mg Sennosides (Senokot) 17.2 mg PO Q12H PRN PRN Reason: Moderate Constipation Sodium Chloride (Ns Flush) 2 ml IV.FLUSH BID [facility] Last Admin: 02/11/18 21:14 Dose: 2 ml Sodium Chloride (Ns Flush) 2 ml IV.FLUSH UNSCH PRN PRN Reason: FLUSH AFTER USING IV ACCESS Spironolactone (Aldactone) 50 mg PO BID@0900,1800 [facility] Last Admin: 02/11/18 09:50 Dose: 50 mg Tramadol HCl (Ultram) 50 mg PO Q6H PRN PRN Reason: Pain 1-10 Last Admin: 02/08/18 23:00 Dose: 50 mg Whey (Beneprotein Powder) 1 packet G-TUBE TID [facility] Last Admin: 02/11/18 09:48 Dose: Not Given Allergies Allergy/AdvReac Type Severity Reaction Status Date / Time penicillin G Allergy Severe UNKNOWN Verified 01/31/18 02:06 Sulfa (Sulfonamide Allergy Severe UNKNOWN Verified 01/31/18 02:06 Antibiotics) ciprofloxacin AdvReac unknown Verified 02/03/18 11:14 Home Medications Medication Instructions Recorded Confirmed Type alprazolam 0.5 mg PO Q8HR PRN 01/31/18 01/31/18 History tramadol 50 mg PO Q6H PRN 01/31/18 01/31/18 History Physical Exam Vital signs: Vital Signs 02/10/18 22:00 02/10/18 23:00 02/10/18 23:57 Temperature Pulse Rate 74 82 93 H Respiratory Rate 16 Blood Pressure 115/60 Pulse Oximetry 97 02/11/18 00:00 02/11/18 01:00 02/11/18 02:00 Temperature Pulse Rate 78 82 80 Respiratory Rate Blood Pressure Pulse Oximetry 02/11/18 03:00 02/11/18 04:00 02/11/18 05:00 Temperature Pulse Rate 84 86 88 Respiratory Rate 16 Blood Pressure 128/70 Pulse Oximetry 97 02/11/18 06:00 02/11/18 07:00 02/11/18 08:00 Temperature 98 F Pulse Rate 84 94 H 92 H Respiratory Rate 18 Blood Pressure 150/84 H Pulse Oximetry 98 02/11/18 09:00 02/11/18 10:00 02/11/18 11:00 Temperature Pulse Rate 96 H 94 H 98 H Respiratory Rate Blood Pressure Pulse Oximetry 02/11/18 12:00 02/11/18 12:02 02/11/18 13:00 Temperature 98.1 F Pulse Rate 100 H 86 Respiratory Rate 16 Blood Pressure 107/66 Pulse Oximetry 96 98 02/11/18 14:00 02/11/18 15:00 02/11/18 16:00 Temperature 98.4 F Pulse Rate 87 94 H 82 Respiratory Rate 16 Blood Pressure 110/86 Pulse Oximetry 96 02/11/18 17:00 02/11/18 18:00 02/11/18 20:58 Temperature Pulse Rate 84 82 Respiratory Rate Blood Pressure Pulse Oximetry 98 Intake & Output 02/11/18 02/11/18 02/12/18 06:59 18:59 06:59 Intake Total 1240 / 1240 820 / 820 Output Total 200 / 200 Balance 1040 / 1040 820 / 820 Weight 87.2 kg Intake: IV 1000 / 1000 100 / 100 INVanz Inj 1,000 MG In NS Inj 100 / 100 100 ML @ 200 mls/hr IV.SIG Q24H [facility] Rx#:[id number] Oral 240 / 240 720 / 720 Output: Urine 200 / 200 Other: # Voids 6 # Incontinent Voids 2 Date of Last Bowel Movement 02/11/18 02/11/18 # Bowel Movements 2 3 Narrative: GENERAL: NAD SKIN: Warm and dry. HEAD: Normocephalic. EYES: No scleral icterus. No injection or drainage. NECK: Supple, trachea midline. No JVD or lymphadenopathy. CARDIOVASCULAR: Regular rate and rhythm without murmurs, gallops, or rubs. RESPIRATORY: Breath sounds equal bilaterally. No accessory muscle use. GASTROINTESTINAL: Abdomen soft, non-tender, nondistended. MUSCULOSKELETAL: No cyanosis, or edema. BACK: Nontender without obvious deformity. No CVA tenderness. - Urinary Catheter Management Indwelling Temp Sensing Catheter Cath placed during this visit: no Urethral indwelling: Yes Reason for continuing: Hourly intake/output Results 02/09/18 05:39 02/10/18 10:04 Comprehensive Metabolic Panel 02/10/18 Range/Units 10:04 Sodium 145 (136-145) meq/L Potassium 5.2 H D (3.5-5.1) meq/L Chloride 113 H (98-107) meq/L Carbon Dioxide 24.9 (21.0-32.0) meq/L BUN 19 H (7-18) mg/dL Creatinine 1.07 H (0.50-1.00) mg/dL Calcium 8.1 L (8.5-10.1) mg/dL Intake and Output 02/11/18 02/11/18 02/11/18 06:59 14:59 22:59 Intake Total 240 / 240 100 / 100 720 / 720 Output Total 200 / 200 Balance 40 / 40 100 / 100 720 / 720 Intake: IV 100 / 100 INVanz Inj 1,000 MG In NS Inj 100 / 100 100 ML @ 200 mls/hr IV.SIG Q24H [facility] Rx#:[id number] Oral 240 / 240 720 / 720 Output: Urine 200 / 200 Other: # Voids 6 # Incontinent Voids 2 Date of Last Bowel Movement 02/11/18 02/11/18 02/11/18 # Bowel Movements 2 3 Weight 87.2 kg - Imaging and Cardiology Imaging: Impressions Head MRI 02/10/18 10:53 CONCLUSION: 1. No acute findings. No recent infarct identified. Assessment and Plan - Assessment (1) Frail elderly Code(s): R54 - Age-related physical debility Status: Acute (2) Acute myocardial infarction Code(s): I21.9 - Acute myocardial infarction, unspecified Status: Acute (3) Febrile illness Code(s): R50.9 - Fever, unspecified Status: Acute (4) Acute kidney injury Code(s): N17.9 - Acute kidney failure, unspecified Status: Acute (5) Atrial fibrillation Code(s): I48.91 - Unspecified atrial fibrillation Status: Acute (6) Cardiogenic shock Code(s): R57.0 - Cardiogenic shock Status: Acute (7) Acute hypoxemic respiratory failure Code(s): J96.01 - Acute respiratory failure with hypoxia Status: Acute (8) Pulmonary edema cardiac cause Code(s): I50.1 - Left ventricular failure, unspecified Status: Acute (9) Acute myocardial infarction Code(s): I21.9 - Acute myocardial infarction, unspecified Status: Acute - Plan 1) Acute myocardial infarction anteriorly 2) Cardiogenic shock 3) NSVT 4) LOLIS 5) AFib 1) Con't ASA/Plavix/Statin 2) BB/RHETT-I/Spironolactone for heart failure 3) Still with concern for gait instability She's unsure of her walking with a walker Agree with continued PT Unable to discuss with Treva, healthcare surrogate, about consideration of anticoagulation today Patient is willing to take, but agrees concern with gate instability
[2018-02-12] MEDS: Insulin NovoLOG Aspart Correctional Sugar Inj SQ SCH ×6 (00:40→20:29)
[2018-02-12] MEDS: ALPRAZolam 0.5 MG Tablet PO PRN (02:40)
[2018-02-12] MEDS: Oral Hygiene Kit OROPHARYNG SCH ×3 (04:49→16:16)
[2018-02-12] MEDS: Heparin - SQ 10,000 UNITS/ML Vial SQ SCH ×4 (05:58→22:05)
[2018-02-12] MEDS: Beneprotein Powder Packet G-TUBE SCH ×3 (09:01→17:11)
[2018-02-12] MEDS: Metoprolol Tartrate 25 MG Tablet PO SCH ×2 (09:02→22:02)
[2018-02-12] MEDS: Spironolactone 25 MG Tablet PO SCH ×3 (09:02→17:12)
[2018-02-12] MEDS: Famotidine PF Inj 20 MG/2 ML Vial IV.PUSH SCH ×2 (09:03→22:02)
[2018-02-12] MEDS: Chlorhexidine 0.12% Oral Kit 15 ML UDC OROPHARYNG SCH ×2 (09:04→22:01)
--- NOTE | 2018-02-12 11:01 | P.PN ---
Subjective Interval history: Follow-up acute respiratory failure/non-ST elevation LA/cardiogenic shock February 11, 2018-patient seen and examined, alert and oriented x2. Vital stable. Tolerated p.o. States she wants to be out of this place. February 12, 2018-patient seen and examined, somehow confused this a.m. vital stable. Patient will start on Seroquel 50 mg at bedtime. However was given Xanax overnight as well Physical Exam Vital signs: Vital Signs 02/11/18 11:00 02/11/18 12:00 02/11/18 12:02 Temperature 98.1 F Pulse Rate 98 H 100 H Respiratory Rate 16 Blood Pressure 107/66 Pulse Oximetry 96 98 02/11/18 13:00 02/11/18 14:00 02/11/18 15:00 Temperature Pulse Rate 86 87 94 H Respiratory Rate Blood Pressure Pulse Oximetry 02/11/18 16:00 02/11/18 17:00 02/11/18 18:00 Temperature 98.4 F Pulse Rate 82 84 82 Respiratory Rate 16 Blood Pressure 110/86 Pulse Oximetry 96 02/11/18 19:00 02/11/18 20:00 02/11/18 20:58 Temperature 98.9 F Pulse Rate 104 H 88 Respiratory Rate 16 Blood Pressure 147/77 H Pulse Oximetry 95 98 02/11/18 21:00 02/11/18 22:00 02/11/18 23:00 Temperature Pulse Rate 90 90 86 Respiratory Rate Blood Pressure Pulse Oximetry 02/11/18 23:41 02/12/18 00:00 02/12/18 01:00 Temperature 99.1 F Pulse Rate 83 86 84 Respiratory Rate 16 Blood Pressure 147/73 H Pulse Oximetry 97 02/12/18 02:00 02/12/18 03:00 02/12/18 03:41 Temperature 99 F Pulse Rate 80 71 67 Respiratory Rate 16 Blood Pressure 125/71 Pulse Oximetry 98 02/12/18 04:00 02/12/18 05:00 02/12/18 06:00 Temperature Pulse Rate 66 73 80 Respiratory Rate Blood Pressure Pulse Oximetry 02/12/18 08:41 02/12/18 09:19 Temperature 98.2 F Pulse Rate 84 Respiratory Rate 18 Blood Pressure 144/70 H Pulse Oximetry 95 95 Intake & Output 02/11/18 02/12/18 02/12/18 18:59 06:59 18:59 Intake Total 820 / 820 240 / 240 Balance 820 / 820 240 / 240 Weight 87.1 kg Intake: IV 100 / 100 INVanz Inj 1,000 MG In NS Inj 100 / 100 100 ML @ 200 mls/hr IV.SIG Q24H [facility] Rx#:[id number] Oral 720 / 720 240 / 240 Other: # Voids 6 # Incontinent Voids 2 Date of Last Bowel Movement 02/11/18 02/11/18 # Bowel Movements 3 1 Narrative: GENERAL: NAD SKIN: Warm and dry. HEAD: Normocephalic. EYES: No scleral icterus. No injection or drainage. NECK: Supple, trachea midline. No JVD or lymphadenopathy. CARDIOVASCULAR: Regular rate and rhythm without murmurs, gallops, or rubs. RESPIRATORY: Breath sounds equal bilaterally. No accessory muscle use. GASTROINTESTINAL: Abdomen soft, non-tender, nondistended. MUSCULOSKELETAL: No cyanosis, or edema. BACK: Nontender without obvious deformity. No CVA tenderness. - Urinary Catheter Management Indwelling Temp Sensing Catheter Cath placed during this visit: no Urethral indwelling: Yes Reason for continuing: Hourly intake/output Results - Labs CBC & Chem 7: 02/09/18 05:39 02/10/18 10:04 Laboratory Results - last 24 hr 02/11/18 02/11/18 02/11/18 11:35 17:02 20:53 POC Glucose 260 H 226 H 268 H 02/12/18 02/12/18 02/12/18 00:32 05:49 08:53 POC Glucose 239 H 155 H 175 H Assessment and Plan - Plan 87-year-old female with: Acute hypoxemic respiratory failure-resolved -Maintain oxygen saturation above 92% -DuoNeb every hours as needed, EzPAP Acute myocardial infarction -Continue antiplatelet therapy (ASA, Plavix) -Status post PCI with LAD stent (LUZMARIA) 02/03/[address] Peralta -Aldactone 50 mg twice daily -Management per cardiology Ischemic cardiomyopathy -Continue beta-blockers metoprolol 50 mg p.o. 2 times daily, enalapril 10 mg twice daily -Repeat echo February 06, 2018 with EF of 30% Atrial fibrillation -Currently rate controlled -Continue metoprolol 50mg BID -Currently on DAPT and subcu heparin, if A. fib persists may need full anticoagulation -Cardiology to discuss with family for possible starting oral anticoagulation versus others Hyperlipidemia -On Statin Acute kidney injury-resolved -Avoid nephrotoxins -Nephrology signed off Diabetes mellitus, poorly controlled -Currently on Medium correction sliding scale insulin protocol UTI , ESBL + organism -Currently on ertapenem and monitor culture report -Management per ID Prophylaxis -Heparin sq -Pepcid -PT/OT
--- NOTE | 2018-02-12 16:00 | P.DIET ---
Nutritional Evaluation Type of nutrition evaluation: follow-up Nutrition consult regarding: Diet Evaluation Screening comments: Assessed per SCCM and ASPEN guidelines for critically ill pts with a BMI >30.0 Objective - Diagnosis Non-Stemi - Objective % IBW: 164 (IBW = 120#) Body Weight Used for Calculations: IBW (54.5 kg for protein needs), Actual ( 89.6 kg for kcaloric needs) Energy Needs - Lower Range (kCal/kg): 11 Energy Needs - Upper Range (kCal/kg): 14 Lower Limit kCal/kg (kCals): 986 Upper Limit kCal/kg (kCals): 1,254 Lower Limit Protein Factor (Grams per Kg): 1.8 Upper Limit Protein Factor (Grams per Kg): 2.2 Lower Protein Needs (Protein): 98 Upper Protein Needs (Protein): 120 Dietitian Reviewed in Medical Record: Curent medications, Intake & Output, Labs , Medical history, Tube feeding Diet Order: NPO Assessment Assessment: Pts TF d/ed on 02/06, pt now on regular, mech soft, honey consistency thickened liquids diet per ST. Pt has a variable PO intake, eating 50-100% on avrg for most meals. Will assess pts nutritional needs for a PO supplement as necessary. Continue to monitor PO intake and glucose labs. Labs reviewed, dietitian following. Recommendations: 1. Continue regular, mech soft, honey consistency thickened liquids diet per ST 2. Will assess pts nutritional needs for a PO supplement as necessary 3. Continue to monitor PO intake and glucose labs 4. Dietitian following Dietitian to Monitor: Lab values, Glucose level, Intake & Output, Weight change , PO Intake, Medical course
--- NOTE | 2018-02-12 16:06 | P.PNPAL ---
Reason for Visit Reason for visit: a. To assist with evaluation and management of symptoms including: Weakness, confusion, anxiety b. To assist medical decision maker(s) with: better understanding of current medical conditions; weighing benefits/burdens of medical treatment options; making medical treatment decisions. Subjective Subjective/Interval History: This is an 87-year-old female with a past medical history of diabetes, hypertension, rectal cancer in remission, anxiety, depression, coronary artery disease status post stent, former smoker who presented to the emergency department 01/31/2018 plane of chest pain, substernal, pressure, nonradiating, persistent, which resolved with aspirin and sublingual nitro given to her by EMS. She had taken a Xanax earlier to try and help her sleep. Her presenting troponin was 1.25 did she had been seen in the ED on 01/28 and had troponin levels of 0.11, 0.96, 1.08. She was diagnosed with a non-STEMI and seen by cardiology. Cardiac catheterization was held secondary to renal insufficiency. Nephrology consultation was requested for further evaluation. Patient seen for follow-up of symptom management for weakness, confusion and anxiety and to assist family in goals of medical treatment. Patient is more confused today, requiring wrist restraints to be applied about noon after she had required restraints overnight for confusion, pulling at lines and tubes and pulling out her IV. She is oriented to self only, intermittently following directions, but impulsive and not compliant with getting up by herself. She is participating with physical therapy, progressing with mobility, able to ambulate to the bathroom with walker and 1-2 assists. She requires frequent cueing for upright posture as she becomes very forward flexed with impaired balance. Recommendation of skilled PT with possible transition to assisted living. At this time it is questionable whether she will ever be able to return to independent living. Anxiety worsened overnight. She received 25 mg of Seroquel at bedtime however by 2:30 in the morning required a dose of Xanax due to increasing confusion and agitation. Plan is to increase the Seroquel tonight to attempt to avoid using Xanax which has not been effective in controlling her symptoms and tends to make her more lethargic and less interactive with therapy. . Family/Friend Interactions: Spoke with the patient's granddaughter and provided update. Plan still remains to send patient to rehab, either at [facility] or at long term. Family is aware that patient may need full-time placement if mentation does not clear. . Advance Directives Living Will: Copy in medical record Health Care Surrogate: Copy in medical record Health Care Surrogate Name and Number: Terva Arvizu Objective Vital Signs: Vital Signs 02/11/18 16:00 02/11/18 17:00 02/11/18 18:00 Temperature 98.4 F Pulse Rate 82 84 82 Respiratory Rate 16 Blood Pressure 110/86 Pulse Oximetry 96 02/11/18 19:00 02/11/18 20:00 02/11/18 20:58 Temperature 98.9 F Pulse Rate 104 H 88 Respiratory Rate 16 Blood Pressure 147/77 H Pulse Oximetry 95 98 02/11/18 21:00 02/11/18 22:00 02/11/18 23:00 Temperature Pulse Rate 90 90 86 Respiratory Rate Blood Pressure Pulse Oximetry 02/11/18 23:41 02/12/18 00:00 02/12/18 01:00 Temperature 99.1 F Pulse Rate 83 86 84 Respiratory Rate 16 Blood Pressure 147/73 H Pulse Oximetry 97 02/12/18 02:00 02/12/18 03:00 02/12/18 03:41 Temperature 99 F Pulse Rate 80 71 67 Respiratory Rate 16 Blood Pressure 125/71 Pulse Oximetry 98 02/12/18 04:00 02/12/18 05:00 02/12/18 06:00 Temperature Pulse Rate 66 73 80 Respiratory Rate Blood Pressure Pulse Oximetry 02/12/18 08:41 02/12/18 09:19 02/12/18 11:43 Temperature 98.2 F 99.3 F Pulse Rate 84 65 Respiratory Rate 18 16 Blood Pressure 144/70 H 124/72 Pulse Oximetry 95 95 99 Intake & Output 02/11/18 02/12/18 02/12/18 18:59 06:59 18:59 Intake Total 820 / 820 240 / 240 Balance 820 / 820 240 / 240 Weight 192 lb 0.362 oz Intake: IV 100 / 100 INVanz Inj 1,000 MG In NS Inj 100 / 100 100 ML @ 200 mls/hr IV.SIG Q24H [facility] Rx#:[id number] Oral 720 / 720 240 / 240 Other: # Voids 6 # Incontinent Voids 2 Date of Last Bowel Movement 1102/11/18 02/12/18 # Bowel Movements 3 1 Physical Exam: CONSTITUTIONAL/GENERAL: This is an adequately nourished patient, lying in bed, awake, talkative in no apparent distress. TUBES/LINES/DRAINS: PIV CARDIOVASCULAR: Irregular rhythm, controlled rate without murmurs, gallops, or rubs. No JVD. Peripheral pulses symmetric. RESPIRATORY/CHEST: Symmetric, unlabored respirations. Clear to auscultation. Breath sounds equal bilaterally. No wheezes, rales, or rhonchi. GASTROINTESTINAL: Abdomen soft, non-tender, nondistended. No hepato-splenomegaly , or palpable masses. No guarding. Bowel sounds present. GENITOURINARY: Without palpable bladder distension. MUSCULOSKELETAL: Extremities without clubbing, cyanosis, or edema. No joint tenderness or effusion noted. No calf tenderness. No mottling or clubbing. NEUROLOGICAL: Alert, oriented to self only, no focal deficits. Noncompliant with medical therapy. Moves all extremities. PSYCHIATRIC: Mildly agitated, confused. . Diagnostic Tests Laboratory: Laboratory Results - last 72 hr 02/09/18 02/09/18 02/10/18 18:48 20:50 00:33 Sodium Potassium Chloride Carbon Dioxide Anion Gap BUN Creatinine Estimated GFR POC Glucose 229 H 256 H 250 H Random Glucose Calcium 02/10/18 02/10/18 02/10/18 03:38 07:58 10:04 Sodium 145 Potassium 5.2 H D Chloride 113 H Carbon Dioxide 24.9 Anion Gap 7 BUN 19 H Creatinine 1.07 H Estimated GFR 48 L POC Glucose 232 H 178 H Random Glucose 157 H Calcium 8.1 L 02/10/18 02/10/18 02/10/18 11:55 16:21 20:16 Sodium Potassium Chloride Carbon Dioxide Anion Gap BUN Creatinine Estimated GFR POC Glucose 137 H 247 H 385 H Random Glucose Calcium 02/10/18 02/11/18 02/11/18 23:45 03:58 07:54 Sodium Potassium Chloride Carbon Dioxide Anion Gap BUN Creatinine Estimated GFR POC Glucose 197 H 190 H 183 H Random Glucose Calcium 02/11/18 02/11/18 02/11/18 11:35 17:02 20:53 Sodium Potassium Chloride Carbon Dioxide Anion Gap BUN Creatinine Estimated GFR POC Glucose 260 H 226 H 268 H Random Glucose Calcium 02/12/18 02/12/18 02/12/18 00:32 05:49 08:53 Sodium Potassium Chloride Carbon Dioxide Anion Gap BUN Creatinine Estimated GFR POC Glucose 239 H 155 H 175 H Random Glucose Calcium 02/12/18 13:05 Sodium Potassium Chloride Carbon Dioxide Anion Gap BUN Creatinine Estimated GFR POC Glucose 230 H Random Glucose Calcium Result Diagrams: 02/09/18 05:39 02/10/18 10:04 Procedures: 02/02: Intubation 02/05: Extubation . Assessment and Plan - Disease Oriented Problem List (1) Non-ST elevated myocardial infarction (non-STEMI) (2) Acute kidney injury (3) Type 2 diabetes mellitus (4) Acute hypoxemic respiratory failure (5) Pulmonary edema cardiac cause (6) Acute myocardial infarction (7) Atrial fibrillation (8) Cardiogenic shock Pertinent Non-Medical Issues: Psychosocial: She was born in [facility] and lived there most of her life. She was however her passed in 1983. She moved to [place] in the early s. 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 She has 1 son. 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 Legal: Living will on the chart with healthcare surrogate. Ethical issues impacting care: None noted. . Important Contacts: Granddaughter: Treva Arvizu Son: Vicky Arvizu . Prognosis: Her prognosis is guarded. She is of advanced age at 87 and showing signs of decline. In addition to renal insufficiency she has multiple cardiac risk factors to include hypertension, hyperlipidemia, obesity with BMI 30.8 kg/m, diabetes with a hemoglobin A1c 7.8 and evidence of at minimum a non-STEMI. Cardiac catheterization per the retail district manager report would be a high risk/"heroic " procedure. She is also febrile with no known source of infection. Urinalysis has been negative on 01/29 and 01/31, influenza is negative and blood cultures are negative times 1 day. Empiric antibiotic coverage is being initiated as cultures are pending. She is at increased risk of continued hospitalizations, complications and decline. . Code Status: Full Code Plan: PLAN: Legal decision maker: Patient at this time is confused and not capacitated for decision-making. It is uncertain if she will regain capacity. Living will and healthcare surrogate on the chart name her granddaughter Treva and Treva's brother Gonzalez as joint healthcare surrogate's. Gonzalez is a member of the [employer] currently regarding the president and unavailable. Goals: Aggressive CODE STATUS: FULL CODE SYMPTOMS: * Confusion: Continues to have sundowners overnight with confusion and tries to get out of bed, placing her at risk for fall, thereby requiring restraints. This exacerbates her anxiety. Requiring restraints today and overnight. UA/C& S requested. * Weakness: Globally weak. At baseline, prior to admission, used walker/ wheelchair. Now requires 2 person maximum assistance plus walker. Family and patient goals aggressive. Requesting rehabilitation. [facility] following. Participating in PT 7 days a week, with slow improvement. Recommend OOB to chair TID to improve core strength. * Anxiety: Worsens overnight, received 25 mg of Seroquel last night without resolution of symptoms. Increased to 50 mg today. Monitor response. Palliative care will continue to follow the patient during hospital course as condition evolves, to assist patient/decision-maker with understanding of their medical conditions, weighing benefits/burdens of treatment options, for clarification of goals of treatment. Additionally will assist with any symptoms of palliative concern. . Attestation Attestation: To help prompt me to consider important information that might be impacting today's encounter and assessment, information from prior notes written by myself or my colleagues may have been "brought forward" into today's note. My signature on this note, however, is an attestation that I personally performed the exam, history, and/or decision-making noted today, and, unless otherwise indicated, the interactions with patient, family, and staff as well as the review of records all occurred today. I also attest that the listed assessment and stated plan reflect my best clinical judgment today based on the combination of historical information, prior notes, and today's exam/ interactions. When time spent is documented, it refers only to time spent today by the signer, or if indicated, combined time spent today by collaborating physician/nurse practitioner. .
--- NOTE | 2018-02-12 17:35 | P.PNCA ---
Subjective Interval history: No events overnight No complaints Medications and Allergies Active Medications: Active Medications Acetaminophen (Tylenol) 500 mg PO Q4H PRN PRN Reason: FEVER > 100.4 F Last Admin: 02/03/18 22:56 Dose: 500 mg Al Hydroxide/Mg Hydroxide (Milk Of Magnpiper Liq) 30 ml PO Q12H PRN PRN Reason: Mild Constipation Albuterol (Duoneb Neb (Prn)) 1 ampul NEB Q2HR NEB PRN PRN Reason: SHORTNESS OF BREATH Alprazolam (Xanax) 0.5 mg PO Q8H PRN PRN Reason: ANXIETY Last Admin: 02/02/18 05:26 Dose: 0.5 mg Alprazolam (Xanax) 0.5 mg PO Q8H PRN PRN Reason: ANXIETY Last Admin: 02/12/18 02:40 Dose: 0.5 mg Aspirin (Ecotrin) 81 mg PO DAILY [facility] Last Admin: 02/12/18 09:02 Dose: 81 mg Atorvastatin Calcium (Lipitor) 40 mg PO HS [facility] Last Admin: 02/11/18 21:13 Dose: 40 mg Bisacodyl (Dulcolax Supp) 10 mg RECTAL DAILY PRN PRN Reason: SEVERE CONSITIPATION Chlorhexidine Gluconate (Peridex 0.12% Oral Kit) 15 ml OROPHARYNG BID@0800, 2000 [facility] Last Admin: 02/12/18 09:04 Dose: Not Given Clopidogrel Bisulfate (Plavix) 75 mg PO DAILY [facility] Last Admin: 02/12/18 09:02 Dose: 75 mg Dextrose (D50w Vial) 50 ml IV.PUSH UNSCH PRN PRN Reason: PER HYPOGLYCEMIA PROTOCOL Enalapril Maleate (Vasotec) 10 mg PO BID [facility] Last Admin: 02/12/18 09:03 Dose: 10 mg Famotidine (Pepcid Pf Inj) 10 mg IV.PUSH Q12HR [facility] Last Admin: 02/12/18 09:03 Dose: 10 mg Glucagon (Glucagon Inj) 1 mg OTHER PRN PRN PRN Reason: for Hypoglycemia Protocol Heparin Sodium (Porcine) (Heparin Inj) 5,000 units SQ Q8HR [facility] Last Admin: 02/12/18 14:30 Dose: 5,000 units Ertapenem 1,000 mg/ Sodium (Chloride) 100 mls @ 200 mls/hr IV.SIG Q24H [facility] Last Infusion: 02/12/18 14:00 Dose: Infused Insulin Aspart (Novolog Insulin Correctional Sugar Inj) 0 unit SQ Q4HR [facility]; Protocol Last Admin: 02/12/18 17:11 Dose: Not Given Lactulose (Lactulose Liq) 30 ml PO DAILY PRN PRN Reason: SEVERE CONSITIPATION Metoprolol Tartrate (Lopressor) 50 mg PO BID [facility] Last Admin: 02/12/18 09:02 Dose: 50 mg Miscellaneous (Pill Splitter) 1 each OTHER UNSCH PRN PRN Reason: SEE LABEL COMMENTS Miscellaneous Medication () 1 each OROPHARYNG 0000,0400,1200,1600 [facility] Last Admin: 02/12/18 16:16 Dose: Not Given Quetiapine Fumarate (Seroquel) 25 mg PO HS [facility] Last Admin: 02/11/18 21:15 Dose: 25 mg Sennosides (Senokot) 17.2 mg PO Q12H PRN PRN Reason: Moderate Constipation Sodium Chloride (Ns Flush) 2 ml IV.FLUSH BID [facility] Last Admin: 02/12/18 09:05 Dose: 2 ml Sodium Chloride (Ns Flush) 2 ml IV.FLUSH UNSCH PRN PRN Reason: FLUSH AFTER USING IV ACCESS Spironolactone (Aldactone) 50 mg PO BID@0900,1800 [facility] Last Admin: 02/12/18 17:12 Dose: Not Given Tramadol HCl (Ultram) 50 mg PO Q6H PRN PRN Reason: Pain 1-10 Last Admin: 02/08/18 23:00 Dose: 50 mg Whey (Beneprotein Powder) 1 packet G-TUBE TID [facility] Last Admin: 02/12/18 17:11 Dose: Not Given Allergies Allergy/AdvReac Type Severity Reaction Status Date / Time penicillin G Allergy Severe UNKNOWN Verified 01/31/18 02:06 Sulfa (Sulfonamide Allergy Severe UNKNOWN Verified 01/31/18 02:06 Antibiotics) ciprofloxacin AdvReac unknown Verified 02/03/18 11:14 Home Medications Medication Instructions Recorded Confirmed Type alprazolam 0.5 mg PO Q8HR PRN 01/31/18 01/31/18 History tramadol 50 mg PO Q6H PRN 01/31/18 01/31/18 History Physical Exam Vital signs: Vital Signs 02/11/18 18:00 02/11/18 19:00 02/11/18 20:00 Temperature 98.9 F Pulse Rate 82 104 H 88 Respiratory Rate 16 Blood Pressure 147/77 H Pulse Oximetry 95 02/11/18 20:58 02/11/18 21:00 02/11/18 22:00 Temperature Pulse Rate 90 90 Respiratory Rate Blood Pressure Pulse Oximetry 98 02/11/18 23:00 02/11/18 23:41 02/12/18 00:00 Temperature 99.1 F Pulse Rate 86 83 86 Respiratory Rate 16 Blood Pressure 147/73 H Pulse Oximetry 97 02/12/18 01:00 02/12/18 02:00 02/12/18 03:00 Temperature Pulse Rate 84 80 71 Respiratory Rate Blood Pressure Pulse Oximetry 02/12/18 03:41 02/12/18 04:00 02/12/18 05:00 Temperature 99 F Pulse Rate 67 66 73 Respiratory Rate 16 Blood Pressure 125/71 Pulse Oximetry 98 02/12/18 06:00 02/12/18 07:00 02/12/18 08:41 Temperature 98.2 F Pulse Rate 80 76 84 Respiratory Rate 18 Blood Pressure 144/70 H Pulse Oximetry 95 02/12/18 09:19 02/12/18 11:43 Temperature 99.3 F Pulse Rate 65 Respiratory Rate 16 Blood Pressure 124/72 Pulse Oximetry 95 99 Intake & Output 02/11/18 02/12/18 02/12/18 18:59 06:59 18:59 Intake Total 820 / 820 240 / 240 820 / 820 Output Total 300 / 300 Balance 820 / 820 240 / 240 520 / 520 Weight 87.1 kg Intake: IV 100 / 100 100 / 100 INVanz Inj 1,000 MG In NS Inj 100 / 100 100 / 100 100 ML @ 200 mls/hr IV.SIG Q24H [facility] Rx#:[id number] Oral 720 / 720 240 / 240 720 / 720 Output: Urine 300 / 300 Other: # Voids 6 # Incontinent Voids 2 4 Date of Last Bowel Movement 02/11/18 02/11/18 02/12/18 # Bowel Movements 3 1 2 Narrative: GENERAL: NAD SKIN: Warm and dry. HEAD: Normocephalic. EYES: No scleral icterus. No injection or drainage. NECK: Supple, trachea midline. No JVD or lymphadenopathy. CARDIOVASCULAR: Regular rate and rhythm without murmurs, gallops, or rubs. RESPIRATORY: Breath sounds equal bilaterally. No accessory muscle use. GASTROINTESTINAL: Abdomen soft, non-tender, nondistended. MUSCULOSKELETAL: No cyanosis, or edema. BACK: Nontender without obvious deformity. No CVA tenderness. - Urinary Catheter Management Indwelling Temp Sensing Catheter Cath placed during this visit: no Urethral indwelling: Yes Reason for continuing: Hourly intake/output Results 02/09/18 05:39 02/10/18 10:04 Intake and Output 02/12/18 02/12/18 02/12/18 06:59 14:59 22:59 Intake Total 240 / 240 100 / 100 720 / 720 Output Total 300 / 300 Balance 240 / 240 100 / 100 420 / 420 Intake: IV 100 / 100 INVanz Inj 1,000 MG In NS Inj 100 / 100 100 ML @ 200 mls/hr IV.SIG Q24H [facility] Rx#:[id number] Oral 240 / 240 720 / 720 Output: Urine 300 / 300 Other: # Incontinent Voids 2 4 Date of Last Bowel Movement 02/11/18 02/12/18 02/12/18 # Bowel Movements 1 2 Weight 87.1 kg - Imaging and Cardiology Imaging: Impressions Head MRI 02/10/18 10:53 CONCLUSION: 1. No acute findings. No recent infarct identified. Assessment and Plan - Assessment (1) Frail elderly Code(s): R54 - Age-related physical debility Status: Acute (2) Acute myocardial infarction Code(s): I21.9 - Acute myocardial infarction, unspecified Status: Acute (3) Febrile illness Code(s): R50.9 - Fever, unspecified Status: Acute (4) Acute kidney injury Code(s): N17.9 - Acute kidney failure, unspecified Status: Acute (5) Atrial fibrillation Code(s): I48.91 - Unspecified atrial fibrillation Status: Acute (6) Cardiogenic shock Code(s): R57.0 - Cardiogenic shock Status: Acute (7) Acute hypoxemic respiratory failure Code(s): J96.01 - Acute respiratory failure with hypoxia Status: Acute (8) Pulmonary edema cardiac cause Code(s): I50.1 - Left ventricular failure, unspecified Status: Acute (9) Acute myocardial infarction Code(s): I21.9 - Acute myocardial infarction, unspecified Status: Acute - Plan 1) Acute myocardial infarction anteriorly 2) Cardiogenic shock 3) NSVT 4) LOLIS 5) AFib 1) Con't ASA/Plavix/Statin 2) BB/RHETT-I/Spironolactone for heart failure 3) Still with concern for gait instability Continuing PT Called placed to Treva, her healthcare surrogate, no answer left a message, will attempt to call tomorrow Patient is willing to take, but agrees concern with gate instability
[2018-02-12 18:11] LABS: Bilirubin,Urine Negative (Negative); Color,Urine Yellow (Yellw/Straw); Glucose,Urine (UA) Negative (Negative); Leukocyte Esterase,Urine Negative (Negative); Mucus,Urine Few /lpf (Occasional); Nitrite,Urine Negative (Negative); Specific Gravity,Urine 1.012 (1.002-1.035); Squamous Epithelial Cell,Urine <1 /hpf (0-5)
[2018-02-12 18:12] LABS: Clarity,Urine Clear (Clear)
[2018-02-12] MEDS: QUEtiapine 25 MG Tablet PO SCH (22:07)
[2018-02-13] MEDS: Insulin NovoLOG Aspart Correctional Sugar Inj SQ SCH ×6 (03:49→20:25)
[2018-02-13] MEDS: Oral Hygiene Kit OROPHARYNG SCH ×4 (03:50→18:10)
[2018-02-13] MEDS: Heparin - SQ 10,000 UNITS/ML Vial SQ SCH ×3 (06:14→21:14)
[2018-02-13] MEDS: Chlorhexidine 0.12% Oral Kit 15 ML UDC OROPHARYNG SCH ×2 (08:44→20:27)
[2018-02-13] MEDS: Beneprotein Powder Packet G-TUBE SCH ×3 (08:44→18:10)
[2018-02-13] MEDS: Famotidine PF Inj 20 MG/2 ML Vial IV.PUSH SCH ×2 (09:03→20:18)
[2018-02-13] MEDS: Metoprolol Tartrate 25 MG Tablet PO SCH ×2 (09:03→21:13)
[2018-02-13] MEDS: Spironolactone 25 MG Tablet PO SCH ×2 (09:03→18:10)
--- NOTE | 2018-02-13 10:58 | P.PN ---
Subjective Interval history: Follow-up acute respiratory failure/non-ST elevation ME/cardiogenic shock February 13, 2018-patient seen and examined, which were respiratory related dyspnea. Restrains off since yesterday 2 PM. Afebrile. Physical Exam Vital signs: Vital Signs 02/12/18 11:00 02/12/18 11:43 02/12/18 12:00 Temperature 99.3 F Pulse Rate 74 65 70 Respiratory Rate 16 Blood Pressure 124/72 Pulse Oximetry 99 02/12/18 13:00 02/12/18 14:00 02/12/18 15:00 Temperature Pulse Rate 78 90 83 Respiratory Rate Blood Pressure Pulse Oximetry 02/12/18 16:00 02/12/18 17:00 02/12/18 18:00 Temperature Pulse Rate 84 86 82 Respiratory Rate Blood Pressure Pulse Oximetry 02/12/18 19:00 02/12/18 20:00 02/12/18 21:00 Temperature 98.2 F Pulse Rate 88 98 H 100 H Respiratory Rate 16 Blood Pressure 149/80 H Pulse Oximetry 96 02/12/18 22:00 02/12/18 23:00 02/13/18 00:00 Temperature Pulse Rate 102 H 94 H 78 Respiratory Rate 16 Blood Pressure Pulse Oximetry 02/13/18 01:00 02/13/18 02:00 02/13/18 03:00 Temperature Pulse Rate 76 75 75 Respiratory Rate Blood Pressure Pulse Oximetry 02/13/18 03:54 02/13/18 04:00 02/13/18 05:00 Temperature 98.3 F Pulse Rate 84 82 80 Respiratory Rate 16 Blood Pressure 141/83 H Pulse Oximetry 98 02/13/18 06:00 02/13/18 07:00 02/13/18 08:00 Temperature 98.2 F Pulse Rate 87 99 H 95 H Respiratory Rate 16 Blood Pressure 139/89 Pulse Oximetry 97 02/13/18 09:22 Temperature Pulse Rate Respiratory Rate Blood Pressure Pulse Oximetry 98 Intake & Output 02/12/18 02/13/18 02/13/18 18:59 06:59 18:59 Intake Total 820 / 820 80 / 80 Output Total 300 / 300 Balance 520 / 520 80 / 80 Weight 84.1 kg Intake: IV 100 / 100 INVanz Inj 1,000 MG In NS Inj 100 / 100 100 ML @ 200 mls/hr IV.SIG Q24H TATYANA Rx#:[id number] Oral 720 / 720 80 / 80 Output: Urine 300 / 300 Other: # Voids 1 # Incontinent Voids 4 1 Date of Last Bowel Movement 02/12/18 02/12/18 02/13/18 # Bowel Movements 2 1 Narrative: GENERAL: NAD SKIN: Warm and dry. HEAD: Normocephalic. EYES: No scleral icterus. No injection or drainage. NECK: Supple, trachea midline. No JVD or lymphadenopathy. CARDIOVASCULAR: Regular rate and rhythm without murmurs, gallops, or rubs. RESPIRATORY: Breath sounds equal bilaterally. No accessory muscle use. GASTROINTESTINAL: Abdomen soft, non-tender, nondistended. MUSCULOSKELETAL: No cyanosis, or edema. BACK: Nontender without obvious deformity. No CVA tenderness. - Urinary Catheter Management Indwelling Temp Sensing Catheter Cath placed during this visit: no Urethral indwelling: Yes Reason for continuing: Hourly intake/output Results - Labs CBC & Chem 7: 02/09/18 05:39 02/10/18 10:04 Laboratory Results - last 24 hr 02/12/18 02/12/18 02/12/18 13:05 17:00 17:04 POC Glucose 230 H 160 H Urine Color Yellow Urine Clarity Clear Urine pH 5.0 Ur Specific [place] 1.012 Urine Protein Negative Urine Glucose (UA) Negative Urine Ketones Negative Urine Occult Blood Moderate H Urine Nitrate Negative Urine Bilirubin Negative Urine Urobilinogen Less than 2 Ur Leukocyte Esterase Negative Urine RBC 30 H Urine WBC 3 Ur Squamous Epith Cells <1 Urine Mucus Few H Micro UA Comment Culture not ind Ur Microscopic Review Not Reportable Urine Culture Comments Culture not ind 02/12/18 02/13/18 02/13/18 20:14 03:44 08:55 POC Glucose 159 H 216 H 223 H Urine Color Urine Clarity Urine pH Ur Specific [place] Urine Protein Urine Glucose (UA) Urine Ketones Urine Occult Blood Urine Nitrate Urine Bilirubin Urine Urobilinogen Ur Leukocyte Esterase Urine RBC Urine WBC Ur Squamous Epith Cells Urine Mucus Micro UA Comment Ur Microscopic Review Urine Culture Comments Assessment and Plan - Plan 87-year-old female with: Acute hypoxemic respiratory failure-resolved -Maintain oxygen saturation above 92% -DuoNeb every hours as needed Acute myocardial infarction -Continue antiplatelet therapy (ASA, Plavix) -Status post PCI with LAD stent (LUZMARIA) 02/03/[address] Peralta -Aldactone 50 mg twice daily -Management per cardiology Ischemic cardiomyopathy -Continue beta-blockers metoprolol 50 mg p.o. 2 times daily, enalapril 10 mg twice daily -Repeat echo February 06, 2018 with EF of 30% Atrial fibrillation -Currently rate controlled -Continue metoprolol 50mg BID -Currently on DAPT and subcu heparin, if A. fib persists may need full anticoagulation -Cardiology to discuss with family for possible starting oral anticoagulation Hyperlipidemia -On Statin Acute kidney injury-resolved -Avoid nephrotoxins -Nephrology signed off Diabetes mellitus, poorly controlled -Currently on Medium correction sliding scale insulin protocol UTI , ESBL + organism -Currently on ertapenem and monitor culture report -Management per ID Prophylaxis -Heparin sq -Pepcid -PT/OT
--- NOTE | 2018-02-13 17:13 | P.PNPAL ---
Reason for Visit Reason for visit: a. To assist with evaluation and management of symptoms including: Weakness, confusion, anxiety b. To assist medical decision maker(s) with: better understanding of current medical conditions; weighing benefits/burdens of medical treatment options; making medical treatment decisions. Subjective Subjective/Interval History: This is an 87-year-old female with a past medical history of diabetes, hypertension, rectal cancer in remission, anxiety, depression, coronary artery disease status post stent, former smoker who presented to the emergency department 01/31/2018 plane of chest pain, substernal, pressure, nonradiating, persistent, which resolved with aspirin and sublingual nitro given to her by EMS. She had taken a Xanax earlier to try and help her sleep. Her presenting troponin was 1.25 did she had been seen in the ED on 01/28 and had troponin levels of 0.11, 0.96, 1.08. She was diagnosed with a non-STEMI and seen by cardiology. Cardiac catheterization was held secondary to renal insufficiency. Nephrology consultation was requested for further evaluation. Patient seen for follow-up of symptom management for weakness, confusion and anxiety and to assist family in goals of medical treatment. Patient less confused out of restraints since yesterday. nursing reports cooperative/following commands. OT, ST following , pt cooperative w therapy, though still partially confused/forgetful. Poor safety awareness. Mold Maker Helper following, eating 50-100% of meals, may consider supplement PO, will follow intake. No new labs. UA yesterday negative. Pt seen in room no visitors present, she is alert and oriented to self. She knows she is in the hospital. She is unable to tell me why she is in the hospital "they are not really telling me anything about that "review that she is here for cardiac issues, and is now receiving ongoing supportive care. She is oriented to her family indicates her granddaughter is a great support system for her. She denies pain. Denies dyspnea. Denies GI complaints. Does indicate she had a little bit of chest congestion and cough but it seems resolved now. . Family/Friend Interactions: call to granddaughter Treva to provide update. review current assessment, recent diagnostics, st/ot findings etc w her. All questions answered. goals remain aggressive. Advance Directives Living Will: Copy in medical record Health Care Surrogate: Copy in medical record Health Care Surrogate Name and Number: Treva Arvizu Objective Vital Signs: Vital Signs 02/12/18 17:00 02/12/18 18:00 02/12/18 19:00 Temperature Pulse Rate 86 82 88 Respiratory Rate Blood Pressure Pulse Oximetry 02/12/18 20:00 02/12/18 21:00 02/12/18 22:00 Temperature 98.2 F Pulse Rate 98 H 100 H 102 H Respiratory Rate 16 Blood Pressure 149/80 H Pulse Oximetry 96 02/12/18 23:00 02/13/18 00:00 02/13/18 01:00 Temperature Pulse Rate 94 H 78 76 Respiratory Rate 16 Blood Pressure Pulse Oximetry 02/13/18 02:00 02/13/18 03:00 02/13/18 03:54 Temperature 98.3 F Pulse Rate 75 75 84 Respiratory Rate 16 Blood Pressure 141/83 H Pulse Oximetry 98 02/13/18 04:00 02/13/18 05:00 02/13/18 06:00 Temperature Pulse Rate 82 80 87 Respiratory Rate Blood Pressure Pulse Oximetry 02/13/18 07:00 02/13/18 08:00 02/13/18 09:00 Temperature 98.2 F Pulse Rate 99 H 92 H 92 H Respiratory Rate 16 Blood Pressure 139/89 Pulse Oximetry 97 02/13/18 09:22 02/13/18 10:00 02/13/18 11:00 Temperature Pulse Rate 90 80 Respiratory Rate Blood Pressure Pulse Oximetry 98 02/13/18 11:05 02/13/18 12:00 02/13/18 13:00 Temperature 100.3 F H Pulse Rate 84 78 80 Respiratory Rate 16 Blood Pressure 118/65 Pulse Oximetry 100 02/13/18 14:00 02/13/18 14:38 02/13/18 15:00 Temperature 98.4 F Pulse Rate 80 84 78 Respiratory Rate 16 Blood Pressure 131/73 Pulse Oximetry 98 02/13/18 16:35 Temperature Pulse Rate 86 Respiratory Rate Blood Pressure Pulse Oximetry Intake & Output 02/12/18 02/13/18 02/13/18 18:59 06:59 18:59 Intake Total 820 / 820 80 / 80 100 / 100 Output Total 300 / 300 Balance 520 / 520 80 / 80 100 / 100 Weight 84.1 kg Intake: IV 100 / 100 100 / 100 INVanz Inj 1,000 MG In NS Inj 100 / 100 100 / 100 100 ML @ 200 mls/hr IV.SIG Q24H TATYANA Rx#:[id number] Oral 720 / 720 80 / 80 Output: Urine 300 / 300 Other: # Voids 1 # Incontinent Voids 4 1 Date of Last Bowel Movement 02/12/18 02/12/18 02/13/18 # Bowel Movements 2 1 Physical Exam: CONSTITUTIONAL/GENERAL: This is an adequately nourished patient,upright in bed, awake, talkative in no apparent distress. TUBES/LINES/DRAINS: PIV CARDIOVASCULAR: Irregular rhythm, controlled rate without murmur. No JVD. Peripheral pulses symmetric. RESPIRATORY/CHEST: Symmetric, unlabored respirations. Clear to auscultation. Breath sounds equal bilaterally. No wheezes, rales, or rhonchi. GASTROINTESTINAL: Abdomen soft, non-tender, nondistended. No hepato-splenomegaly , or palpable masses. No guarding. Bowel sounds present. GENITOURINARY: Without palpable bladder distension.external urine collection wick in place MUSCULOSKELETAL: Extremities without clubbing, cyanosis, or edema. No joint tenderness or effusion noted. No calf tenderness. No mottling or clubbing. NEUROLOGICAL: Alert, oriented to self , family, hospital. no focal deficits. follows commands. very limited insight. Moves all extremities. PSYCHIATRIC:calm, cooperative. . Diagnostic Tests Laboratory: Laboratory Results - last 72 hr 02/10/18 02/10/18 02/11/18 20:16 23:45 03:58 POC Glucose 385 H 197 H 190 H Urine Color Urine Clarity Urine pH Ur Specific [place] Urine Protein Urine Glucose (UA) Urine Ketones Urine Occult Blood Urine Nitrate Urine Bilirubin Urine Urobilinogen Ur Leukocyte Esterase Urine RBC Urine WBC Ur Squamous Epith Cells Urine Mucus Micro UA Comment Ur Microscopic Review Urine Culture Comments 02/11/18 02/11/18 02/11/18 07:54 11:35 17:02 POC Glucose 183 H 260 H 226 H Urine Color Urine Clarity Urine pH Ur Specific [place] Urine Protein Urine Glucose (UA) Urine Ketones Urine Occult Blood Urine Nitrate Urine Bilirubin Urine Urobilinogen Ur Leukocyte Esterase Urine RBC Urine WBC Ur Squamous Epith Cells Urine Mucus Micro UA Comment Ur Microscopic Review Urine Culture Comments 02/11/18 02/12/18 02/12/18 20:53 00:32 05:49 POC Glucose 268 H 239 H 155 H Urine Color Urine Clarity Urine pH Ur Specific [place] Urine Protein Urine Glucose (UA) Urine Ketones Urine Occult Blood Urine Nitrate Urine Bilirubin Urine Urobilinogen Ur Leukocyte Esterase Urine RBC Urine WBC Ur Squamous Epith Cells Urine Mucus Micro UA Comment Ur Microscopic Review Urine Culture Comments 02/12/18 02/12/18 02/12/18 08:53 13:05 17:00 POC Glucose 175 H 230 H Urine Color Yellow Urine Clarity Clear Urine pH 5.0 Ur Specific [place] 1.012 Urine Protein Negative Urine Glucose (UA) Negative Urine Ketones Negative Urine Occult Blood Moderate H Urine Nitrate Negative Urine Bilirubin Negative Urine Urobilinogen Less than 2 Ur Leukocyte Esterase Negative Urine RBC 30 H Urine WBC 3 Ur Squamous Epith Cells <1 Urine Mucus Few H Micro UA Comment Culture not ind Ur Microscopic Review Not Reportable Urine Culture Comments Culture not ind 02/12/18 02/12/18 02/13/18 17:04 20:14 03:44 POC Glucose 160 H 159 H 216 H Urine Color Urine Clarity Urine pH Ur Specific [place] Urine Protein Urine Glucose (UA) Urine Ketones Urine Occult Blood Urine Nitrate Urine Bilirubin Urine Urobilinogen Ur Leukocyte Esterase Urine RBC Urine WBC Ur Squamous Epith Cells Urine Mucus Micro UA Comment Ur Microscopic Review Urine Culture Comments 02/13/18 02/13/18 02/13/18 08:55 11:13 14:41 POC Glucose 223 H 204 H 176 H Urine Color Urine Clarity Urine pH Ur Specific [place] Urine Protein Urine Glucose (UA) Urine Ketones Urine Occult Blood Urine Nitrate Urine Bilirubin Urine Urobilinogen Ur Leukocyte Esterase Urine RBC Urine WBC Ur Squamous Epith Cells Urine Mucus Micro UA Comment Ur Microscopic Review Urine Culture Comments Result Diagrams: 02/09/18 05:39 02/10/18 10:04 Procedures: 02/02: Intubation 02/05: Extubation . Assessment and Plan - Disease Oriented Problem List (1) Non-ST elevated myocardial infarction (non-STEMI) (2) Acute kidney injury (3) Type 2 diabetes mellitus (4) Acute hypoxemic respiratory failure (5) Pulmonary edema cardiac cause (6) Acute myocardial infarction (7) Atrial fibrillation (8) Cardiogenic shock Pertinent Non-Medical Issues: Psychosocial: She was born in [facility] and lived there most of her life. She was however her passed in 1983. She moved to [place] in the early s. 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 She has 1 son. 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 Legal: Living will on the chart with healthcare surrogate. Ethical issues impacting care: None noted. . Important Contacts: Granddaughter: Treva Arvizu Son: Vicky Arvizu . Prognosis: Her prognosis is guarded. She is of advanced age at 87 and showing signs of decline. In addition to renal insufficiency she has multiple cardiac risk factors to include hypertension, hyperlipidemia, obesity with BMI 30.8 kg/m, diabetes with a hemoglobin A1c 7.8 and evidence of at minimum a non-STEMI. Cardiac catheterization per the public works technician report would be a high risk/"heroic " procedure. She is also febrile with no known source of infection. Urinalysis has been negative on 01/29 and 01/31, influenza is negative and blood cultures are negative times 1 day. Empiric antibiotic coverage is being initiated as cultures are pending. She is at increased risk of continued hospitalizations, complications and decline. . Code Status: Full Code Plan: PLAN: Legal decision maker: Patient at this time is confused and not capacitated for decision-making. It is uncertain if she will regain capacity. Living will and healthcare surrogate on the chart name her granddaughter Treva and Treva's brother Gonzalez as joint healthcare surrogate's. Gonzalez is a member of the [employer] currently regarding the president and unavailable. Goals: Aggressive CODE STATUS: FULL CODE SYMPTOMS: * Confusion: episodic/ ers overnight with confusion and tries to get out of bed, placing her at risk for fall, thereby requiring restraints. This exacerbates her anxiety. has not required restraints since yesterday. UA sent yesterday negative. * Weakness: Globally weak. At baseline, prior to admission, used walker/ wheelchair. Now requires 2 person maximum assistance plus walker. Family and patient goals aggressive. Requesting rehabilitation. [place] following. Participating in PT 7 days a week, with slow improvement. Recommend OOB to chair TID to improve core strength. * Anxiety: Worsens overnight, received 25 mg of Seroquel - some agitation yesterday, though overnight last night calmer/less confused today. Recommend Increase to 50 mg today. Monitor response. Palliative care will continue to follow the patient during hospital course as condition evolves, to assist patient/decision-maker with understanding of their medical conditions, weighing benefits/burdens of treatment options, for clarification of goals of treatment. Additionally will assist with any symptoms of palliative concern. . Attestation Attestation: To help prompt me to consider important information that might be impacting today's encounter and assessment, information from prior notes written by myself or my colleagues may have been "brought forward" into today's note. My signature on this note, however, is an attestation that I personally performed the exam, history, and/or decision-making noted today, and, unless otherwise indicated, the interactions with patient, family, and staff as well as the review of records all occurred today. I also attest that the listed assessment and stated plan reflect my best clinical judgment today based on the combination of historical information, prior notes, and today's exam/ interactions. When time spent is documented, it refers only to time spent today by the signer, or if indicated, combined time spent today by collaborating physician/nurse practitioner.
[2018-02-13] MEDS: QUEtiapine 25 MG Tablet PO SCH (21:14)
--- NOTE | 2018-02-13 23:03 | P.PNCA ---
Subjective Interval history: No events overnight Pleasant and mostly oriented Medications and Allergies Active Medications: Active Medications Acetaminophen (Tylenol) 500 mg PO Q4H PRN PRN Reason: FEVER > 100.4 F Last Admin: 02/03/18 22:56 Dose: 500 mg Al Hydroxide/Mg Hydroxide (Milk Of Nita Liroyce) 30 ml PO Q12H PRN PRN Reason: Mild Constipation Albuterol (Duoneb Neb (Prn)) 1 ampul NEB Q2HR NEB PRN PRN Reason: SHORTNESS OF BREATH Alprazolam (Xanax) 0.5 mg PO Q8H PRN PRN Reason: ANXIETY Last Admin: 02/02/18 05:26 Dose: 0.5 mg Alprazolam (Xanax) 0.5 mg PO Q8H PRN PRN Reason: ANXIETY Last Admin: 02/12/18 02:40 Dose: 0.5 mg Aspirin (Ecotrin) 81 mg PO DAILY [facility] Last Admin: 02/13/18 09:03 Dose: 81 mg Atorvastatin Calcium (Lipitor) 40 mg PO HS [facility] Last Admin: 02/13/18 20:20 Dose: 40 mg Bisacodyl (Dulcolax Supp) 10 mg RECTAL DAILY PRN PRN Reason: SEVERE CONSITIPATION Chlorhexidine Gluconate (Peridex 0.12% Oral Kit) 15 ml OROPHARYNG BID@0800, 2000 [facility] Last Admin: 02/13/18 20:27 Dose: Not Given Clopidogrel Bisulfate (Plavix) 75 mg PO DAILY [facility] Last Admin: 02/13/18 09:03 Dose: 75 mg Dextrose (D50w Vial) 50 ml IV.PUSH UNSCH PRN PRN Reason: PER HYPOGLYCEMIA PROTOCOL Enalapril Maleate (Vasotec) 10 mg PO BID [facility] Last Admin: 02/13/18 20:20 Dose: 10 mg Famotidine (Pepcid Pf Inj) 10 mg IV.PUSH Q12HR [facility] Last Admin: 02/13/18 20:18 Dose: 10 mg Glucagon (Glucagon Inj) 1 mg OTHER PRN PRN PRN Reason: for Hypoglycemia Protocol Heparin Sodium (Porcine) (Heparin Inj) 5,000 units SQ Q8HR [facility] Last Admin: 02/13/18 21:14 Dose: 5,000 units Ertapenem 1,000 mg/ Sodium (Chloride) 100 mls @ 200 mls/hr IV.SIG Q24H [facility] Last Infusion: 02/13/18 12:00 Dose: Infused Insulin Aspart (Novolog Insulin Correctional Sugar Inj) 0 unit SQ Q4HR [facility]; Protocol Last Admin: 02/13/18 20:25 Dose: 2 unit Lactulose (Lactulose Liq) 30 ml PO DAILY PRN PRN Reason: SEVERE CONSITIPATION Metoprolol Tartrate (Lopressor) 50 mg PO BID [facility] Last Admin: 02/13/18 21:13 Dose: 50 mg Miscellaneous (Pill Splitter) 1 each OTHER UNSCH PRN PRN Reason: SEE LABEL COMMENTS Miscellaneous Medication () 1 each OROPHARYNG 0000,0400,1200,1600 [facility] Last Admin: 02/13/18 18:10 Dose: Not Given Quetiapine Fumarate (Seroquel) 25 mg PO HS [facility] Last Admin: 02/13/18 21:14 Dose: 25 mg Sennosides (Senokot) 17.2 mg PO Q12H PRN PRN Reason: Moderate Constipation Sodium Chloride (Ns Flush) 2 ml IV.FLUSH BID [facility] Last Admin: 02/13/18 20:40 Dose: 2 ml Sodium Chloride (Ns Flush) 2 ml IV.FLUSH UNSCH PRN PRN Reason: FLUSH AFTER USING IV ACCESS Spironolactone (Aldactone) 50 mg PO BID@0900,1800 [facility] Last Admin: 02/13/18 18:10 Dose: 50 mg Tramadol HCl (Ultram) 50 mg PO Q6H PRN PRN Reason: Pain 1-10 Last Admin: 02/08/18 23:00 Dose: 50 mg Whey (Beneprotein Powder) 1 packet G-TUBE TID [facility] Last Admin: 02/13/18 18:10 Dose: Not Given Allergies Allergy/AdvReac Type Severity Reaction Status Date / Time penicillin G Allergy Severe UNKNOWN Verified 01/31/18 02:06 Sulfa (Sulfonamide Allergy Severe UNKNOWN Verified 01/31/18 02:06 Antibiotics) ciprofloxacin AdvReac unknown Verified 02/03/18 11:14 Home Medications Medication Instructions Recorded Confirmed Type alprazolam 0.5 mg PO Q8HR PRN 01/31/18 01/31/18 History tramadol 50 mg PO Q6H PRN 01/31/18 01/31/18 History Physical Exam Vital signs: Vital Signs 02/13/18 00:00 02/13/18 01:00 02/13/18 02:00 Temperature Pulse Rate 78 76 75 Respiratory Rate 16 Blood Pressure Pulse Oximetry 02/13/18 03:00 02/13/18 03:54 02/13/18 04:00 Temperature 98.3 F Pulse Rate 75 84 82 Respiratory Rate 16 Blood Pressure 141/83 H Pulse Oximetry 98 02/13/18 05:00 02/13/18 06:00 02/13/18 07:00 Temperature Pulse Rate 80 87 99 H Respiratory Rate Blood Pressure Pulse Oximetry 02/13/18 08:00 02/13/18 09:00 02/13/18 09:22 Temperature 98.2 F Pulse Rate 92 H 92 H Respiratory Rate 16 Blood Pressure 139/89 Pulse Oximetry 97 98 02/13/18 10:00 02/13/18 11:00 02/13/18 11:05 Temperature 100.3 F H Pulse Rate 90 80 84 Respiratory Rate 16 Blood Pressure 118/65 Pulse Oximetry 100 02/13/18 12:00 02/13/18 13:00 02/13/18 14:00 Temperature Pulse Rate 78 80 80 Respiratory Rate Blood Pressure Pulse Oximetry 02/13/18 14:38 02/13/18 15:00 02/13/18 16:35 Temperature 98.4 F Pulse Rate 84 78 86 Respiratory Rate 16 Blood Pressure 131/73 Pulse Oximetry 98 02/13/18 17:00 02/13/18 18:00 Temperature Pulse Rate 78 86 Respiratory Rate Blood Pressure Pulse Oximetry Intake & Output 02/13/18 02/13/18 02/14/18 06:59 18:59 06:59 Intake Total 80 / 80 820 / 820 Output Total 400 / 400 Balance 80 / 80 420 / 420 Weight 84.1 kg Intake: IV 100 / 100 INVanz Inj 1,000 MG In NS Inj 100 / 100 100 ML @ 200 mls/hr IV.SIG Q24H [facility] Rx#:[id number] Oral 80 / 80 720 / 720 Output: Urine 400 / 400 Other: # Voids 1 # Incontinent Voids 1 Date of Last Bowel Movement 02/12/18 02/13/18 # Bowel Movements 1 Narrative: GENERAL: NAD SKIN: Warm and dry. HEAD: Normocephalic. EYES: No scleral icterus. No injection or drainage. NECK: Supple, trachea midline. No JVD or lymphadenopathy. CARDIOVASCULAR: Regular rate and rhythm without murmurs, gallops, or rubs. RESPIRATORY: Breath sounds equal bilaterally. No accessory muscle use. GASTROINTESTINAL: Abdomen soft, non-tender, nondistended. MUSCULOSKELETAL: No cyanosis, or edema. BACK: Nontender without obvious deformity. No CVA tenderness. - Urinary Catheter Management Indwelling Temp Sensing Catheter Cath placed during this visit: no Urethral indwelling: Yes Reason for continuing: Hourly intake/output Results 02/09/18 05:39 02/10/18 10:04 Intake and Output 02/13/18 02/13/18 02/14/18 14:59 22:59 06:59 Intake Total 100 / 100 720 / 720 Output Total 400 / 400 Balance 100 / 100 320 / 320 Intake: IV 100 / 100 INVanz Inj 1,000 MG In NS Inj 100 / 100 100 ML @ 200 mls/hr IV.SIG Q24H [facility] Rx#:[id number] Oral 720 / 720 Output: Urine 400 / 400 Other: Date of Last Bowel Movement 02/13/18 02/13/18 Assessment and Plan - Assessment (1) Frail elderly Code(s): R54 - Age-related physical debility Status: Acute (2) Acute myocardial infarction Code(s): I21.9 - Acute myocardial infarction, unspecified Status: Acute (3) Febrile illness Code(s): R50.9 - Fever, unspecified Status: Acute (4) Acute kidney injury Code(s): N17.9 - Acute kidney failure, unspecified Status: Acute (5) Atrial fibrillation Code(s): I48.91 - Unspecified atrial fibrillation Status: Acute (6) Cardiogenic shock Code(s): R57.0 - Cardiogenic shock Status: Acute (7) Acute hypoxemic respiratory failure Code(s): J96.01 - Acute respiratory failure with hypoxia Status: Acute (8) Pulmonary edema cardiac cause Code(s): I50.1 - Left ventricular failure, unspecified Status: Acute (9) Acute myocardial infarction Code(s): I21.9 - Acute myocardial infarction, unspecified Status: Acute - Plan 1) Acute myocardial infarction anteriorly 2) Cardiogenic shock 3) NSVT 4) LOLIS 5) AFib 1) Con't ASA/Plavix/Statin 2) BB/RHETT-I/Spironolactone for heart failure EF 30% 3) Still with concern for gait instability and getting out of bed without assistance Continuing PT Called placed to Treva, her healthcare surrogate, no answer left a message, will try again tomorrow Patient is willing to take, but agrees concern with gate instability
[2018-02-14] MEDS: Insulin NovoLOG Aspart Correctional Sugar Inj SQ SCH ×7 (00:01→20:34)
[2018-02-14] MEDS: Oral Hygiene Kit OROPHARYNG SCH ×4 (01:40→16:14)
[2018-02-14] MEDS: ALPRAZolam 0.5 MG Tablet PO PRN ×2 (03:09→20:36)
[2018-02-14] MEDS: Heparin - SQ 10,000 UNITS/ML Vial SQ SCH ×3 (06:17→21:00)
[2018-02-14 08:56] LABS: Baso # (Auto) 0.1 th/mm3 (0.0-0.2); Eos # (Auto) 0.2 th/mm3 (0.0-0.4); Eos % (Auto) 2.6 % (0.0-4.0); Hematocrit 32.8 % (35.0-46.0); Hemoglobin 10.7 gm/dL (11.6-15.3); Mean Corpuscular HGB Conc 32.6 % (32.0-36.0); Mean Corpuscular Hemoglobin 29.1 pg (27.0-34.0); Mean Corpuscular Volume 89.2 fL (80.0-100.0); Mean Platelet Volume 9.6 fL (7.0-11.0); Mono # (Auto) 0.5 th/mm3 (0.0-0.9); Mono % (Auto) 7.7 % (0.0-8.0); Neut # (Auto) 4.6 th/mm3 (1.8-7.7); Neut % (Auto) 72.7 % (16.0-70.0); Platelet Count 244 th/mm3 (150-450); Red Blood Count 3.67 mil/mm3 (4.00-5.30); Red Cell Distribution Width 17.5 % (11.6-17.2); White Blood Count 6.3 th/mm3 (4.0-11.0)
[2018-02-14 09:28] LABS: Albumin 2.7 g/dL (3.4-5.0); Anion Gap 11 meq/L (5-15); Aspartate Aminotransferase 23 U/L (15-37); Blood Urea Nitrogen 15 mg/dL (7-18); Calcium 8.5 mg/dL (8.5-10.1); Carbon Dioxide 25.5 meq/L (21.0-32.0); Chloride 109 meq/L (98-107); Glomerular Filtration Rate 38 mL/min (>89); Sodium 145 meq/L (136-145)
[2018-02-14 09:29] LABS: Glucose,Random 202 mg/dL (74-106)
[2018-02-14 09:37] LABS: Alanine Aminotransferase 15 U/L (10-53); Alkaline Phosphatase 72 U/L (45-117)
[2018-02-14] MEDS: Beneprotein Powder Packet G-TUBE SCH ×3 (10:00→20:34)
[2018-02-14] MEDS: Chlorhexidine 0.12% Oral Kit 15 ML UDC OROPHARYNG SCH ×2 (10:01→20:34)
[2018-02-14] MEDS: Spironolactone 25 MG Tablet PO SCH ×2 (10:10→17:47)
[2018-02-14] MEDS: Metoprolol Tartrate 25 MG Tablet PO SCH ×2 (10:19→20:30)
[2018-02-14] MEDS: Famotidine PF Inj 20 MG/2 ML Vial IV.PUSH SCH ×2 (10:20→20:35)
--- NOTE | 2018-02-14 16:29 | P.PNIM ---
Subjective Interval history: The patient was resting comfortably in bed. She said that she had 2 heart attacks. She said she would like to follow-up with the doctor she has been working with for the past [address] Carbone. She had no other acute complaints. Physical Exam Vital signs: Vital Signs 02/13/18 16:35 02/13/18 17:00 02/13/18 18:00 Temperature Pulse Rate 86 78 86 Respiratory Rate Blood Pressure Pulse Oximetry 02/13/18 19:00 02/13/18 20:00 02/13/18 21:00 Temperature 98.2 F Pulse Rate 93 H 94 H 102 H Respiratory Rate 14 Blood Pressure 155/78 H Pulse Oximetry 98 02/13/18 22:00 02/13/18 23:00 02/14/18 00:00 Temperature 97.6 F Pulse Rate 98 H 68 71 Respiratory Rate 12 Blood Pressure 153/86 H Pulse Oximetry 98 02/14/18 01:00 02/14/18 02:00 02/14/18 03:00 Temperature Pulse Rate 84 72 103 H Respiratory Rate Blood Pressure Pulse Oximetry 02/14/18 04:00 02/14/18 05:00 02/14/18 06:00 Temperature 97.4 F L Pulse Rate 90 82 91 H Respiratory Rate 14 Blood Pressure 119/75 Pulse Oximetry 95 02/14/18 07:00 02/14/18 08:00 02/14/18 12:11 Temperature 98.4 F 98.4 F Pulse Rate 74 16 L 86 Respiratory Rate 16 16 Blood Pressure 167/73 H 159/49 H Pulse Oximetry 02/14/18 16:00 Temperature 98.6 F Pulse Rate 84 Respiratory Rate 16 Blood Pressure 135/78 Pulse Oximetry 96 Intake & Output 02/13/18 02/14/18 02/14/18 18:59 06:59 18:59 Intake Total 820 / 820 480 / 480 100 / 100 Output Total 400 / 400 300 / 300 Balance 420 / 420 180 / 180 100 / 100 Weight 82.5 kg Intake: IV 100 / 100 100 / 100 INVanz Inj 1,000 MG In NS Inj 100 / 100 100 / 100 100 ML @ 200 mls/hr IV.SIG Q24H [facility] Rx#:[id number] Oral 720 / 720 480 / 480 Output: Urine 400 / 400 300 / 300 Other: Date of Last Bowel Movement 02/13/18 02/13/18 Narrative: GENERAL: NAD SKIN: Warm and dry. HEAD: Normocephalic. EYES: No scleral icterus. No injection or drainage. NECK: Supple, trachea midline. No JVD or lymphadenopathy. CARDIOVASCULAR: Regular rate and rhythm without murmurs, gallops, or rubs. RESPIRATORY: Breath sounds equal bilaterally. No accessory muscle use. GASTROINTESTINAL: Abdomen soft, non-tender, nondistended. MUSCULOSKELETAL: No cyanosis, or edema. BACK: Nontender without obvious deformity. No CVA tenderness. NEURO: No gross deficits. - Urinary Catheter Management Indwelling Temp Sensing Catheter Cath placed during this visit: no Urethral indwelling: Yes Reason for continuing: Hourly intake/output Results - Labs CBC & Chem 7: 02/14/18 07:59 02/14/18 07:59 Laboratory Results - last 24 hr 02/13/18 02/13/18 02/14/18 19:40 23:54 03:21 WBC RBC Hgb Hct MCV MCH MCHC RDW Plt Count MPV Neut % (Auto) Lymph % (Auto) [place] % (Auto) Eos % (Auto) Baso % (Auto) Neut # (Auto) Lymph # (Auto) [place] # (Auto) Eos # (Auto) Baso # (Auto) WBC Differential Differential Comment Sodium Potassium Chloride Carbon Dioxide Anion Gap BUN Creatinine Estimated GFR POC Glucose 180 H 246 H 211 H Random Glucose Calcium Total Bilirubin AST ALT Alkaline Phosphatase Total Protein Albumin 02/14/18 02/14/18 02/14/18 07:59 07:59 10:02 WBC 6.3 RBC 3.67 L Hgb 10.7 L Hct 32.8 L MCV 89.2 MCH 29.1 MCHC 32.6 RDW 17.5 H Plt Count 244 MPV 9.6 Neut % (Auto) 72.7 H Lymph % (Auto) 16.0 [place] % (Auto) 7.7 Eos % (Auto) 2.6 Baso % (Auto) 1.0 Neut # (Auto) 4.6 Lymph # (Auto) 1.0 [place] # (Auto) 0.5 Eos # (Auto) 0.2 Baso # (Auto) 0.1 WBC Differential . Differential Comment Auto diff final Sodium 145 Potassium 4.0 Chloride 109 H Carbon Dioxide 25.5 Anion Gap 11 BUN 15 Creatinine 1.31 H Estimated GFR 38 L POC Glucose 210 H Random Glucose 202 H Calcium 8.5 Total Bilirubin 0.5 AST 23 ALT 15 Alkaline Phosphatase 72 Total Protein 7.0 Albumin 2.7 L 02/14/18 02/14/18 12:10 16:18 WBC RBC Hgb Hct MCV MCH MCHC RDW Plt Count MPV Neut % (Auto) Lymph % (Auto) [place] % (Auto) Eos % (Auto) Baso % (Auto) Neut # (Auto) Lymph # (Auto) [place] # (Auto) Eos # (Auto) Baso # (Auto) WBC Differential Differential Comment Sodium Potassium Chloride Carbon Dioxide Anion Gap BUN Creatinine Estimated GFR POC Glucose 208 H 235 H Random Glucose Calcium Total Bilirubin AST ALT Alkaline Phosphatase Total Protein Albumin Assessment and Plan - Plan Acute hypoxemic respiratory failure-resolved -Maintain oxygen saturation above 92% -DuoNeb every hours as needed Acute myocardial infarction -Continue antiplatelet therapy (ASA, Plavix) -Status post PCI with LAD stent (LZUMARIA) 02/03/[address] Peralta -Aldactone 50 mg twice daily -Management per cardiology Ischemic cardiomyopathy -Continue beta-blockers metoprolol 50 mg p.o. 2 times daily, enalapril 10 mg twice daily -Repeat echo February 06, 2018 with EF of 30% Atrial fibrillation -Currently rate controlled -Continue metoprolol 50mg BID -Currently on DAPT and subcu heparin, if A. fib persists may need full anticoagulation -Cardiology to discuss with family for possible starting of oral anticoagulation Hyperlipidemia -On Statin Acute kidney injury Improved. -Avoid nephrotoxins -Nephrology signed off. -follow BMP. Diabetes mellitus, poorly controlled -Currently on Medium correction sliding scale insulin protocol -Add Levemir 10 units HS and adjust as needed. UTI , ESBL + organism -Currently on ertapenem and monitor culture report -Management per ID PPx: Heparin
--- NOTE | 2018-02-14 18:24 | P.PNCA ---
Subjective Interval history: No events overnight Seems better oriented today Medications and Allergies Active Medications: Active Medications Acetaminophen (Tylenol) 500 mg PO Q4H PRN PRN Reason: FEVER > 100.4 F Last Admin: 02/03/18 22:56 Dose: 500 mg Al Hydroxide/Mg Hydroxide (Milk Of Nita Liroyce) 30 ml PO Q12H PRN PRN Reason: Mild Constipation Albuterol (Duoneb Neb (Prn)) 1 ampul NEB Q2HR NEB PRN PRN Reason: SHORTNESS OF BREATH Alprazolam (Xanax) 0.5 mg PO Q8H PRN PRN Reason: ANXIETY Last Admin: 02/02/18 05:26 Dose: 0.5 mg Alprazolam (Xanax) 0.5 mg PO Q8H PRN PRN Reason: ANXIETY Last Admin: 02/14/18 03:09 Dose: 0.5 mg Aspirin (Ecotrin) 81 mg PO DAILY [facility] Last Admin: 02/14/18 10:21 Dose: 81 mg Atorvastatin Calcium (Lipitor) 40 mg PO HS [facility] Last Admin: 02/13/18 20:20 Dose: 40 mg Bisacodyl (Dulcolax Supp) 10 mg RECTAL DAILY PRN PRN Reason: SEVERE CONSITIPATION Chlorhexidine Gluconate (Peridex 0.12% Oral Kit) 15 ml OROPHARYNG BID@0800, 2000 [facility] Last Admin: 02/14/18 10:01 Dose: Not Given Clopidogrel Bisulfate (Plavix) 75 mg PO DAILY [facility] Last Admin: 02/14/18 10:19 Dose: 75 mg Dextrose (D50w Vial) 50 ml IV.PUSH UNSCH PRN PRN Reason: PER HYPOGLYCEMIA PROTOCOL Enalapril Maleate (Vasotec) 10 mg PO BID [facility] Last Admin: 02/14/18 10:19 Dose: 10 mg Famotidine (Pepcid Pf Inj) 10 mg IV.PUSH Q12HR [facility] Last Admin: 02/14/18 10:20 Dose: 10 mg Glucagon (Glucagon Inj) 1 mg OTHER PRN PRN PRN Reason: for Hypoglycemia Protocol Heparin Sodium (Porcine) (Heparin Inj) 5,000 units SQ Q8HR [facility] Last Admin: 02/14/18 14:50 Dose: 5,000 units Ertapenem 1,000 mg/ Sodium (Chloride) 100 mls @ 200 mls/hr IV.SIG Q24H [facility] Last Infusion: 02/14/18 12:50 Dose: Infused Insulin Aspart (Novolog Insulin Correctional Sugar Inj) 0 unit SQ Q4HR [facility]; Protocol Last Admin: 02/14/18 16:23 Dose: 4 unit Insulin Detemir (Levemir Inj) 10 unit SQ [facility] Lactulose (Lactulose Liq) 30 ml PO DAILY PRN PRN Reason: SEVERE CONSITIPATION Metoprolol Tartrate (Lopressor) 50 mg PO BID [facility] Last Admin: 02/14/18 10:19 Dose: 50 mg Miscellaneous (Pill Splitter) 1 each OTHER UNSCH PRN PRN Reason: SEE LABEL COMMENTS Miscellaneous Medication () 1 each OROPHARYNG 0000,0400,1200,1600 [facility] Last Admin: 02/14/18 16:14 Dose: Not Given Quetiapine Fumarate (Seroquel) 25 mg PO [facility] Last Admin: 02/13/18 21:14 Dose: 25 mg Sennosides (Senokot) 17.2 mg PO Q12H PRN PRN Reason: Moderate Constipation Sodium Chloride (Ns Flush) 2 ml IV.FLUSH BID [facility] Last Admin: 02/14/18 10:21 Dose: 2 ml Sodium Chloride (Ns Flush) 2 ml IV.FLUSH UNSCH PRN PRN Reason: FLUSH AFTER USING IV ACCESS Spironolactone (Aldactone) 50 mg PO BID@0900,1800 [facility] Last Admin: 02/14/18 17:47 Dose: 50 mg Tramadol HCl (Ultram) 50 mg PO Q6H PRN PRN Reason: Pain 1-10 Last Admin: 02/14/18 14:45 Dose: 50 mg Whey (Beneprotein Powder) 1 packet G-TUBE TID [facility] Last Admin: 02/14/18 12:30 Dose: Not Given Allergies Allergy/AdvReac Type Severity Reaction Status Date / Time penicillin G Allergy Severe UNKNOWN Verified 01/31/18 02:06 Sulfa (Sulfonamide Allergy Severe UNKNOWN Verified 01/31/18 02:06 Antibiotics) ciprofloxacin AdvReac unknown Verified 02/03/18 11:14 Home Medications Medication Instructions Recorded Confirmed Type alprazolam 0.5 mg PO Q8HR PRN 01/31/18 01/31/18 History tramadol 50 mg PO Q6H PRN 01/31/18 01/31/18 History Physical Exam Vital signs: Vital Signs 02/13/18 19:00 02/13/18 20:00 02/13/18 21:00 Temperature 98.2 F Pulse Rate 93 H 94 H 102 H Respiratory Rate 14 Blood Pressure 155/78 H Pulse Oximetry 98 02/13/18 22:00 02/13/18 23:00 02/14/18 00:00 Temperature 97.6 F Pulse Rate 98 H 68 71 Respiratory Rate 12 Blood Pressure 153/86 H Pulse Oximetry 98 02/14/18 01:00 02/14/18 02:00 02/14/18 03:00 Temperature Pulse Rate 84 72 103 H Respiratory Rate Blood Pressure Pulse Oximetry 02/14/18 04:00 02/14/18 05:00 02/14/18 06:00 Temperature 97.4 F L Pulse Rate 90 82 91 H Respiratory Rate 14 Blood Pressure 119/75 Pulse Oximetry 95 02/14/18 07:00 02/14/18 08:00 02/14/18 09:00 Temperature 98.4 F Pulse Rate 74 86 84 Respiratory Rate 16 Blood Pressure 167/73 H Pulse Oximetry 02/14/18 10:00 02/14/18 11:00 02/14/18 12:00 Temperature Pulse Rate 106 H 86 88 Respiratory Rate Blood Pressure Pulse Oximetry 02/14/18 12:11 02/14/18 13:00 02/14/18 14:00 Temperature 98.4 F Pulse Rate 86 102 H 92 H Respiratory Rate 16 Blood Pressure 159/49 H Pulse Oximetry 02/14/18 15:00 02/14/18 16:00 02/14/18 17:00 Temperature 98.6 F Pulse Rate 92 H 88 88 Respiratory Rate 16 Blood Pressure 135/78 Pulse Oximetry 96 02/14/18 17:44 02/14/18 18:05 Temperature Pulse Rate 109 H Respiratory Rate Blood Pressure Pulse Oximetry 96 Intake & Output 02/13/18 02/14/18 02/14/18 18:59 06:59 18:59 Intake Total 820 / 820 480 / 480 100 / 100 Output Total 400 / 400 300 / 300 Balance 420 / 420 180 / 180 100 / 100 Weight 82.5 kg Intake: IV 100 / 100 100 / 100 INVanz Inj 1,000 MG In NS Inj 100 / 100 100 / 100 100 ML @ 200 mls/hr IV.SIG Q24H [facility] Rx#:[id number] Oral 720 / 720 480 / 480 Output: Urine 400 / 400 300 / 300 Other: Date of Last Bowel Movement 02/13/18 02/13/18 Narrative: GENERAL: NAD SKIN: Warm and dry. HEAD: Normocephalic. EYES: No scleral icterus. No injection or drainage. NECK: Supple, trachea midline. No JVD or lymphadenopathy. CARDIOVASCULAR: Regular rate and rhythm without murmurs, gallops, or rubs. RESPIRATORY: Breath sounds equal bilaterally. No accessory muscle use. GASTROINTESTINAL: Abdomen soft, non-tender, nondistended. MUSCULOSKELETAL: No cyanosis, or edema. BACK: Nontender without obvious deformity. No CVA tenderness. NEURO: No gross deficits. - Urinary Catheter Management Indwelling Temp Sensing Catheter Cath placed during this visit: no Urethral indwelling: Yes Reason for continuing: Hourly intake/output Results 02/14/18 07:59 02/14/18 07:59 Cardiac Enzymes 02/14/18 Range/Units 07:59 AST 23 (15-37) U/L CBC 02/14/18 Range/Units 07:59 WBC 6.3 (4.0-11.0) th/mm3 RBC 3.67 L (4.00-5.30) mil/mm3 Hgb 10.7 L (11.6-15.3) gm/dL Hct 32.8 L (35.0-46.0) % Plt Count 244 (150-450) th/mm3 Neut # (Auto) 4.6 (1.8-7.7) th/mm3 Lymph # (Auto) 1.0 (1.0-4.8) th/mm3 [place] # (Auto) 0.5 (0.0-0.9) th/mm3 Eos # (Auto) 0.2 (0.0-0.4) th/mm3 Baso # (Auto) 0.1 (0.0-0.2) th/mm3 Comprehensive Metabolic Panel 02/14/18 Range/Units 07:59 Sodium 145 (136-145) meq/L Potassium 4.0 (3.5-5.1) meq/L Chloride 109 H (98-107) meq/L Carbon Dioxide 25.5 (21.0-32.0) meq/L BUN 15 (7-18) mg/dL Creatinine 1.31 H (0.50-1.00) mg/dL Calcium 8.5 (8.5-10.1) mg/dL AST 23 (15-37) U/L ALT 15 (10-53) U/L Alkaline Phosphatase 72 (45-117) U/L Total Protein 7.0 (6.4-8.2) g/dL Albumin 2.7 L (3.4-5.0) g/dL Intake and Output 02/14/18 02/14/18 02/14/18 06:59 14:59 22:59 Intake Total 480 / 480 100 / 100 Output Total 300 / 300 Balance 180 / 180 100 / 100 Intake: IV 100 / 100 INVanz Inj 1,000 MG In NS Inj 100 / 100 100 ML @ 200 mls/hr IV.SIG Q24H [facility] Rx#:[id number] Oral 480 / 480 Output: Urine 300 / 300 Other: Date of Last Bowel Movement 02/13/18 Weight 82.5 kg Assessment and Plan - Assessment (1) Frail elderly Code(s): R54 - Age-related physical debility Status: Acute (2) Acute myocardial infarction Code(s): I21.9 - Acute myocardial infarction, unspecified Status: Acute (3) Febrile illness Code(s): R50.9 - Fever, unspecified Status: Acute (4) Acute kidney injury Code(s): N17.9 - Acute kidney failure, unspecified Status: Acute (5) Atrial fibrillation Code(s): I48.91 - Unspecified atrial fibrillation Status: Acute (6) Cardiogenic shock Code(s): R57.0 - Cardiogenic shock Status: Acute (7) Acute hypoxemic respiratory failure Code(s): J96.01 - Acute respiratory failure with hypoxia Status: Acute (8) Pulmonary edema cardiac cause Code(s): I50.1 - Left ventricular failure, unspecified Status: Acute (9) Acute myocardial infarction Code(s): I21.9 - Acute myocardial infarction, unspecified Status: Acute - Plan 1) Acute myocardial infarction anteriorly 2) Cardiogenic shock 3) NSVT 4) LOLIS 5) AFib 1) Con't ASA/Plavix/Statin 2) BB/RHETT-I/Spironolactone for heart failure EF 30% 3) Still with concern for gait instability and getting out of bed without assistance Continuing PT Discussed with granddaughter Treva, health surrogate, came to the conclusion that there is still a concern for falls, gate instability and getting out of bed without assist Will plan on holding off on anticoagulation at this time Will plan to reevaluate after rehab to see if stronger, more oriented and less gate instability
[2018-02-14] MEDS: QUEtiapine 25 MG Tablet PO SCH (20:33)
[2018-02-14] MEDS ORDERED: Insulin Detemir Inj 1,000 UNIT/10 ML Vial SQ SCH (21:00)
[2018-02-15] MEDS: Heparin - SQ 10,000 UNITS/ML Vial SQ SCH ×3 (07:10→22:00)
[2018-02-15] MEDS: Metoprolol Tartrate 25 MG Tablet PO SCH ×2 (08:55→21:59)
[2018-02-15] MEDS: Spironolactone 25 MG Tablet PO SCH ×2 (08:57→18:38)
[2018-02-15 09:59] LABS: Calcium 8.4 mg/dL (8.5-10.1); Carbon Dioxide 23.8 meq/L (21.0-32.0); Magnesium 1.9 mg/dL (1.5-2.5); Phosphorus 3.3 mg/dL (2.5-4.9); Potassium 4.1 meq/L (3.5-5.1)
[2018-02-15] MEDS: Insulin NovoLOG Aspart Correctional Sugar Inj SQ SCH ×4 (12:29→22:01)
[2018-02-15] MEDS: Famotidine PF Inj 20 MG/2 ML Vial IV.PUSH SCH ×2 (14:06→21:59)
[2018-02-15] MEDS: Oral Hygiene Kit OROPHARYNG SCH ×2 (14:08→18:47)
[2018-02-15] MEDS: Beneprotein Powder Packet G-TUBE SCH (14:08)
[2018-02-15] MEDS: Chlorhexidine 0.12% Oral Kit 15 ML UDC OROPHARYNG SCH ×2 (14:08→22:01)
--- NOTE | 2018-02-15 15:55 | P.PNIM ---
Subjective Interval history: The patient had questions about going home and following up with doctors. She wanted to know when she could leave the hospital. She had no acute complaints. Discussed with nursing. Physical Exam Vital signs: Vital Signs 02/14/18 16:00 02/14/18 17:00 02/14/18 17:44 Temperature 98.6 F Pulse Rate 88 88 Respiratory Rate 16 Blood Pressure 135/78 Pulse Oximetry 96 96 02/14/18 18:05 02/14/18 19:00 02/14/18 20:00 Temperature 98.8 F Pulse Rate 109 H 87 132 H Respiratory Rate 18 Blood Pressure 121/70 Pulse Oximetry 94 L 02/14/18 21:00 02/14/18 22:00 02/14/18 23:00 Temperature Pulse Rate 104 H 68 68 Respiratory Rate Blood Pressure Pulse Oximetry 02/15/18 00:00 02/15/18 01:00 02/15/18 02:00 Temperature 98.4 F Pulse Rate 72 65 70 Respiratory Rate 18 Blood Pressure 102/50 L Pulse Oximetry 100 02/15/18 03:00 02/15/18 04:00 02/15/18 05:00 Temperature 98.1 F Pulse Rate 71 78 71 Respiratory Rate 18 Blood Pressure 121/63 Pulse Oximetry 96 02/15/18 06:00 02/15/18 07:00 02/15/18 08:00 Temperature 98.5 F Pulse Rate 75 83 108 H Respiratory Rate 18 Blood Pressure 134/66 Pulse Oximetry 96 02/15/18 12:00 02/15/18 13:00 02/15/18 14:00 Temperature 98.1 F Pulse Rate 81 78 92 H Respiratory Rate 18 Blood Pressure 116/60 Pulse Oximetry 94 L 02/15/18 15:00 Temperature Pulse Rate 90 Respiratory Rate Blood Pressure Pulse Oximetry Intake & Output 02/14/18 02/15/18 02/15/18 18:59 06:59 18:59 Intake Total 750 / 750 480 / 480 Output Total 200 / 200 Balance 750 / 750 280 / 280 Weight 81.7 kg Intake: IV 100 / 100 INVanz Inj 1,000 MG In NS Inj 100 / 100 100 ML @ 200 mls/hr IV.SIG Q24H [facility] Rx#:[id number] Oral 650 / 650 480 / 480 Output: Urine 200 / 200 Other: # Voids 6 # Urine Diapers 2 Date of Last Bowel Movement 02/13/18 02/13/18 # Bowel Movements 0 Narrative: GENERAL: NAD SKIN: Warm and dry. HEAD: Normocephalic. EYES: No scleral icterus. No injection or drainage. NECK: Supple, trachea midline. No JVD or lymphadenopathy. CARDIOVASCULAR: Regular rate and rhythm without murmurs, gallops, or rubs. RESPIRATORY: Breath sounds equal bilaterally. No accessory muscle use. GASTROINTESTINAL: Abdomen soft, non-tender, nondistended. MUSCULOSKELETAL: No cyanosis, or edema. BACK: Nontender without obvious deformity. No CVA tenderness. NEURO: No gross deficits. - Urinary Catheter Management Indwelling Temp Sensing Catheter Cath placed during this visit: no Urethral indwelling: Yes Reason for continuing: Hourly intake/output Results - Labs CBC & Chem 7: 02/14/18 07:59 02/15/18 08:38 Laboratory Results - last 24 hr 02/14/18 02/14/18 02/15/18 16:18 20:28 08:37 Sodium Potassium Chloride Carbon Dioxide Anion Gap BUN Creatinine Estimated GFR POC Glucose 235 H 174 H 131 H Random Glucose Calcium Phosphorus Magnesium 02/15/18 02/15/18 08:38 14:12 Sodium 145 Potassium 4.1 Chloride 111 H Carbon Dioxide 23.8 Anion Gap 10 BUN 16 Creatinine 1.30 H Estimated GFR 39 L POC Glucose 223 H Random Glucose 118 H Calcium 8.4 L Phosphorus 3.3 Magnesium 1.9 Assessment and Plan - Plan Acute hypoxemic respiratory failure-resolved -Maintain oxygen saturation above 92%. -DuoNeb as needed. Acute myocardial infarction -Continue antiplatelet therapy (ASA, Plavix) and statin. -Status post PCI with LAD stent (LUZMARIA) 02/03/[address] Peralta -Aldactone 50 mg twice daily -Management per cardiology Ischemic cardiomyopathy -Continue beta-blockers metoprolol 50 mg p.o. 2 times daily, enalapril 10 mg twice daily -Repeat echo February 06, 2018 with EF of 30% Atrial fibrillation -Currently rate controlled -Continue metoprolol 50mg BID -Currently on DAPT and subcu heparin, if A. fib persists may need full anticoagulation -Cardiology to discuss with family for possible starting of oral anticoagulation Acute kidney injury Improved. -Avoid nephrotoxins -Nephrology signed off. -follow BMP as needed. Diabetes mellitus, poorly controlled -Currently on Medium correction sliding scale insulin protocol -Increase Levemir to 15 units HS and adjust as needed. UTI , ESBL + organism -Currently on ertapenem and monitor culture report -Management per ID PPx: Heparin
--- NOTE | 2018-02-15 16:44 | P.PNPAL ---
Reason for Visit Reason for visit: a. To assist with evaluation and management of symptoms including: Weakness, confusion, anxiety b. To assist medical decision maker(s) with: better understanding of current medical conditions; weighing benefits/burdens of medical treatment options; making medical treatment decisions. Subjective Subjective/Interval History: This is an 87-year-old female with a past medical history of diabetes, hypertension, rectal cancer in remission, anxiety, depression, coronary artery disease status post stent, former smoker who presented to the emergency department 01/31/2018 plane of chest pain, substernal, pressure, nonradiating, persistent, which resolved with aspirin and sublingual nitro given to her by EMS. She had taken a Xanax earlier to try and help her sleep. Her presenting troponin was 1.25 did she had been seen in the ED on 01/28 and had troponin levels of 0.11, 0.96, 1.08. She was diagnosed with a non-STEMI and seen by cardiology. Cardiac catheterization was held secondary to renal insufficiency. Nephrology consultation was requested for further evaluation. Patient seen for follow-up of symptom management for weakness, confusion and anxiety and to assist family in goals of medical treatment. Patient less confused out of restraints x 2 days. nursing reports cooperative/ following commands. OT, ST following , pt cooperative w therapy, though still partially confused/forgetful with Poor safety awareness. Short distance with physical therapy. Per CM note [facility] liaison requested to re-evaluate pt. No new labs. UA yesterday negative. Pt seen in room no visitors present, will visit with Lewis Cerda APRN. She is alert and oriented to self. She knows she is in the hospital. She is unable to tell me why she is in the hospital she tells me that she broke or busted something in her stomach. Review with her that she is here for cardiac reasons though she does not seem to have good insight into this. She is not currently having pain. She denies dyspnea. No GI complaints. She does complain of needing to use the restroom, notified nursing to assist to bedside commode. Following exam call to granddaughter Treva provided update on current clinical assessment, conditions, treatments in place no recent labs or diagnostics, discharge planning in process that [facility] has been requested to reevaluate. Review with her that patient does still remain at risk for potential complications and decline. All questions answered to the best my ability. She has palliative contact information. Goals remain aggressive to continue to pursue available treatments to help with the patient's recovery. . Advance Directives Living Will: Copy in medical record Health Care Surrogate: Copy in medical record Health Care Surrogate Name and Number: Treva Arvizu Objective Vital Signs: Vital Signs 02/14/18 17:00 02/14/18 17:44 02/14/18 18:05 Temperature Pulse Rate 88 109 H Respiratory Rate Blood Pressure Pulse Oximetry 96 02/14/18 19:00 02/14/18 20:00 02/14/18 21:00 Temperature 98.8 F Pulse Rate 87 132 H 104 H Respiratory Rate 18 Blood Pressure 121/70 Pulse Oximetry 94 L 02/14/18 22:00 02/14/18 23:00 02/15/18 00:00 Temperature 98.4 F Pulse Rate 68 68 72 Respiratory Rate 18 Blood Pressure 102/50 L Pulse Oximetry 100 02/15/18 01:00 02/15/18 02:00 02/15/18 03:00 Temperature Pulse Rate 65 70 71 Respiratory Rate Blood Pressure Pulse Oximetry 02/15/18 04:00 02/15/18 05:00 02/15/18 06:00 Temperature 98.1 F Pulse Rate 78 71 75 Respiratory Rate 18 Blood Pressure 121/63 Pulse Oximetry 96 02/15/18 07:00 02/15/18 08:00 02/15/18 12:00 Temperature 98.5 F 98.1 F Pulse Rate 83 108 H 81 Respiratory Rate 18 18 Blood Pressure 134/66 116/60 Pulse Oximetry 96 94 L 02/15/18 13:00 02/15/18 14:00 02/15/18 15:00 Temperature Pulse Rate 78 92 H 90 Respiratory Rate Blood Pressure Pulse Oximetry 02/15/18 16:00 Temperature 98.5 F Pulse Rate Respiratory Rate Blood Pressure 121/71 Pulse Oximetry 95 Intake & Output 02/14/18 02/15/18 02/15/18 18:59 06:59 18:59 Intake Total 750 / 750 480 / 480 Output Total 200 / 200 Balance 750 / 750 280 / 280 Weight 81.7 kg Intake: IV 100 / 100 INVanz Inj 1,000 MG In NS Inj 100 / 100 100 ML @ 200 mls/hr IV.SIG Q24H [facility] Rx#:[id number] Oral 650 / 650 480 / 480 Output: Urine 200 / 200 Other: # Voids 6 # Urine Diapers 2 Date of Last Bowel Movement 02/13/18 02/13/18 # Bowel Movements 0 Physical Exam: CONSTITUTIONAL/GENERAL: This is an adequately nourished patient,upright in bed, awake, talkative in no apparent distress. TUBES/LINES/DRAINS: PIV CARDIOVASCULAR: Irregular rhythm, controlled rate without murmur. No JVD. Peripheral pulses symmetric. RESPIRATORY/CHEST: Symmetric, unlabored respirations. Clear to auscultation. Breath sounds equal bilaterally. No wheezes, rales, or rhonchi. GASTROINTESTINAL: Abdomen soft, non-tender, nondistended. No hepato-splenomegaly , or palpable masses. No guarding. Bowel sounds present. GENITOURINARY: Without palpable bladder distension. MUSCULOSKELETAL: Extremities without clubbing, cyanosis, or edema. No joint tenderness or effusion noted. No calf tenderness. No mottling or clubbing. NEUROLOGICAL: Alert, oriented to self , family, hospital. no focal deficits. follows commands. very limited insight. Moves all extremities. PSYCHIATRIC:calm, cooperative. . Diagnostic Tests Laboratory: Laboratory Results - last 72 hr 02/12/18 02/12/18 02/12/18 17:00 17:04 20:14 WBC RBC Hgb Hct MCV MCH MCHC RDW Plt Count MPV Neut % (Auto) Lymph % (Auto) [place] % (Auto) Eos % (Auto) Baso % (Auto) Neut # (Auto) Lymph # (Auto) [place] # (Auto) Eos # (Auto) Baso # (Auto) WBC Differential Differential Comment Sodium Potassium Chloride Carbon Dioxide Anion Gap BUN Creatinine Estimated GFR POC Glucose 160 H 159 H Random Glucose Calcium Phosphorus Magnesium Total Bilirubin AST ALT Alkaline Phosphatase Total Protein Albumin Urine Color Yellow Urine Clarity Clear Urine pH 5.0 Ur Specific [employer] 1.012 Urine Protein Negative Urine Glucose (UA) Negative Urine Ketones Negative Urine Occult Blood Moderate H Urine Nitrate Negative Urine Bilirubin Negative Urine Urobilinogen Less than 2 Ur Leukocyte Esterase Negative Urine RBC 30 H Urine WBC 3 Ur Squamous Epith Cells <1 Urine Mucus Few H Micro UA Comment Culture not ind Ur Microscopic Review Not Reportable Urine Culture Comments Culture not ind 02/13/18 02/13/18 02/13/18 03:44 08:55 11:13 WBC RBC Hgb Hct MCV MCH MCHC RDW Plt Count MPV Neut % (Auto) Lymph % (Auto) [place] % (Auto) Eos % (Auto) Baso % (Auto) Neut # (Auto) Lymph # (Auto) [place] # (Auto) Eos # (Auto) Baso # (Auto) WBC Differential Differential Comment Sodium Potassium Chloride Carbon Dioxide Anion Gap BUN Creatinine Estimated GFR POC Glucose 216 H 223 H 204 H Random Glucose Calcium Phosphorus Magnesium Total Bilirubin AST ALT Alkaline Phosphatase Total Protein Albumin Urine Color Urine Clarity Urine pH Ur Specific [employer] Urine Protein Urine Glucose (UA) Urine Ketones Urine Occult Blood Urine Nitrate Urine Bilirubin Urine Urobilinogen Ur Leukocyte Esterase Urine RBC Urine WBC Ur Squamous Epith Cells Urine Mucus Micro UA Comment Ur Microscopic Review Urine Culture Comments 02/13/18 02/13/18 02/13/18 14:41 19:40 23:54 WBC RBC Hgb Hct MCV MCH MCHC RDW Plt Count MPV Neut % (Auto) Lymph % (Auto) [place] % (Auto) Eos % (Auto) Baso % (Auto) Neut # (Auto) Lymph # (Auto) [place] # (Auto) Eos # (Auto) Baso # (Auto) WBC Differential Differential Comment Sodium Potassium Chloride Carbon Dioxide Anion Gap BUN Creatinine Estimated GFR POC Glucose 176 H 180 H 246 H Random Glucose Calcium Phosphorus Magnesium Total Bilirubin AST ALT Alkaline Phosphatase Total Protein Albumin Urine Color Urine Clarity Urine pH Ur Specific [employer] Urine Protein Urine Glucose (UA) Urine Ketones Urine Occult Blood Urine Nitrate Urine Bilirubin Urine Urobilinogen Ur Leukocyte Esterase Urine RBC Urine WBC Ur Squamous Epith Cells Urine Mucus Micro UA Comment Ur Microscopic Review Urine Culture Comments 02/14/18 02/14/18 02/14/18 03:21 07:59 07:59 WBC 6.3 RBC 3.67 L Hgb 10.7 L Hct 32.8 L MCV 89.2 MCH 29.1 MCHC 32.6 RDW 17.5 H Plt Count 244 MPV 9.6 Neut % (Auto) 72.7 H Lymph % (Auto) 16.0 [place] % (Auto) 7.7 Eos % (Auto) 2.6 Baso % (Auto) 1.0 Neut # (Auto) 4.6 Lymph # (Auto) 1.0 [place] # (Auto) 0.5 Eos # (Auto) 0.2 Baso # (Auto) 0.1 WBC Differential . Differential Comment Auto diff final Sodium 145 Potassium 4.0 Chloride 109 H Carbon Dioxide 25.5 Anion Gap 11 BUN 15 Creatinine 1.31 H Estimated GFR 38 L POC Glucose 211 H Random Glucose 202 H Calcium 8.5 Phosphorus Magnesium Total Bilirubin 0.5 AST 23 ALT 15 Alkaline Phosphatase 72 Total Protein 7.0 Albumin 2.7 L Urine Color Urine Clarity Urine pH Ur Specific [employer] Urine Protein Urine Glucose (UA) Urine Ketones Urine Occult Blood Urine Nitrate Urine Bilirubin Urine Urobilinogen Ur Leukocyte Esterase Urine RBC Urine WBC Ur Squamous Epith Cells Urine Mucus Micro UA Comment Ur Microscopic Review Urine Culture Comments 02/14/18 02/14/18 02/14/18 10:02 12:10 16:18 WBC RBC Hgb Hct MCV MCH MCHC RDW Plt Count MPV Neut % (Auto) Lymph % (Auto) [place] % (Auto) Eos % (Auto) Baso % (Auto) Neut # (Auto) Lymph # (Auto) [place] # (Auto) Eos # (Auto) Baso # (Auto) WBC Differential Differential Comment Sodium Potassium Chloride Carbon Dioxide Anion Gap BUN Creatinine Estimated GFR POC Glucose 210 H 208 H 235 H Random Glucose Calcium Phosphorus Magnesium Total Bilirubin AST ALT Alkaline Phosphatase Total Protein Albumin Urine Color Urine Clarity Urine pH Ur Specific [employer] Urine Protein Urine Glucose (UA) Urine Ketones Urine Occult Blood Urine Nitrate Urine Bilirubin Urine Urobilinogen Ur Leukocyte Esterase Urine RBC Urine WBC Ur Squamous Epith Cells Urine Mucus Micro UA Comment Ur Microscopic Review Urine Culture Comments 02/14/18 02/15/18 02/15/18 20:28 08:37 08:38 WBC RBC Hgb Hct MCV MCH MCHC RDW Plt Count MPV Neut % (Auto) Lymph % (Auto) [place] % (Auto) Eos % (Auto) Baso % (Auto) Neut # (Auto) Lymph # (Auto) [place] # (Auto) Eos # (Auto) Baso # (Auto) WBC Differential Differential Comment Sodium 145 Potassium 4.1 Chloride 111 H Carbon Dioxide 23.8 Anion Gap 10 BUN 16 Creatinine 1.30 H Estimated GFR 39 L POC Glucose 174 H 131 H Random Glucose 118 H Calcium 8.4 L Phosphorus 3.3 Magnesium 1.9 Total Bilirubin AST ALT Alkaline Phosphatase Total Protein Albumin Urine Color Urine Clarity Urine pH Ur Specific [employer] Urine Protein Urine Glucose (UA) Urine Ketones Urine Occult Blood Urine Nitrate Urine Bilirubin Urine Urobilinogen Ur Leukocyte Esterase Urine RBC Urine WBC Ur Squamous Epith Cells Urine Mucus Micro UA Comment Ur Microscopic Review Urine Culture Comments 02/15/18 14:12 WBC RBC Hgb Hct MCV MCH MCHC RDW Plt Count MPV Neut % (Auto) Lymph % (Auto) [place] % (Auto) Eos % (Auto) Baso % (Auto) Neut # (Auto) Lymph # (Auto) [place] # (Auto) Eos # (Auto) Baso # (Auto) WBC Differential Differential Comment Sodium Potassium Chloride Carbon Dioxide Anion Gap BUN Creatinine Estimated GFR POC Glucose 223 H Random Glucose Calcium Phosphorus Magnesium Total Bilirubin AST ALT Alkaline Phosphatase Total Protein Albumin Urine Color Urine Clarity Urine pH Ur Specific [employer] Urine Protein Urine Glucose (UA) Urine Ketones Urine Occult Blood Urine Nitrate Urine Bilirubin Urine Urobilinogen Ur Leukocyte Esterase Urine RBC Urine WBC Ur Squamous Epith Cells Urine Mucus Micro UA Comment Ur Microscopic Review Urine Culture Comments Result Diagrams: 02/14/18 07:59 02/15/18 08:38 Procedures: 02/02: Intubation 02/05: Extubation . Assessment and Plan - Disease Oriented Problem List (1) Non-ST elevated myocardial infarction (non-STEMI) (2) Acute kidney injury (3) Type 2 diabetes mellitus (4) Acute hypoxemic respiratory failure (5) Pulmonary edema cardiac cause (6) Acute myocardial infarction (7) Atrial fibrillation (8) Cardiogenic shock Pertinent Non-Medical Issues: Psychosocial: She was born in [facility] and lived there most of her life. She was however her passed in 1983. She moved to [place] in the early s. 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 She has 1 son. 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 Legal: Living will on the chart with healthcare surrogate. Ethical issues impacting care: None noted. . Important Contacts: Granddaughter: Treva Arvizu Son: Vicky Arvizu . Prognosis: Her prognosis is guarded. She is of advanced age at 87 and showing signs of decline. In addition to renal insufficiency she has multiple cardiac risk factors to include hypertension, hyperlipidemia, obesity with BMI 30.8 kg/m, diabetes with a hemoglobin A1c 7.8 and evidence of at minimum a non-STEMI. Cardiac catheterization per the pin ball machine mechanic report would be a high risk/"heroic " procedure. She is also febrile with no known source of infection. Urinalysis has been negative on 01/29 and 01/31, influenza is negative and blood cultures are negative times 1 day. Empiric antibiotic coverage is being initiated as cultures are pending. She is at increased risk of continued hospitalizations, complications and decline. . Code Status: Full Code Plan: PLAN: Legal decision maker: Patient at this time is confused and not capacitated for decision-making. It is uncertain if she will regain capacity. Living will and healthcare surrogate on the chart name her granddaughter Treva and Treva's brother Gonzalez as joint healthcare surrogate's. Gonzalez is a member of the [employer] currently regarding the president and unavailable. Goals: Aggressive CODE STATUS: FULL CODE SYMPTOMS: * Confusion: / owners overnight with confusion and tries to get out of bed, placing her at risk for fall, thereby requiring restraints. This exacerbates her anxiety. has not required restraints since yesterday. UA sent yesterday negative. * Weakness: Globally weak. At baseline, prior to admission, used walker/ wheelchair. Now requires 2 person maximum assistance plus walker. Family and patient goals aggressive. Requesting rehabilitation. [facility] following. Participating in PT 7 days a week, with slow improvement. Recommend OOB to chair TID to improve core strength. * Anxiety: Worsens overnight, received 25 mg of Seroquel - some agitation yesterday, though overnight last night calmer/less confused today. Recommend Increase to 50 mg today. Monitor response. Palliative care will continue to follow the patient during hospital course as condition evolves, to assist patient/decision-maker with understanding of their medical conditions, weighing benefits/burdens of treatment options, for clarification of goals of treatment. Additionally will assist with any symptoms of palliative concern. . Attestation Attestation: To help prompt me to consider important information that might be impacting today's encounter and assessment, information from prior notes written by myself or my colleagues may have been "brought forward" into today's note. My signature on this note, however, is an attestation that I personally performed the exam, history, and/or decision-making noted today, and, unless otherwise indicated, the interactions with patient, family, and staff as well as the review of records all occurred today. I also attest that the listed assessment and stated plan reflect my best clinical judgment today based on the combination of historical information, prior notes, and today's exam/ interactions. When time spent is documented, it refers only to time spent today by the signer, or if indicated, combined time spent today by collaborating physician/nurse practitioner.
--- NOTE | 2018-02-15 17:48 | P.PNCA ---
Subjective Interval history: No complaints Wants to go home PT recommending assisted living Medications and Allergies Active Medications: Active Medications Acetaminophen (Tylenol) 500 mg PO Q4H PRN PRN Reason: FEVER > 100.4 F Last Admin: 02/03/18 22:56 Dose: 500 mg Al Hydroxide/Mg Hydroxide (Milk Of Magnpiper Liq) 30 ml PO Q12H PRN PRN Reason: Mild Constipation Albuterol (Duoneb Neb (Prn)) 1 ampul NEB Q2HR NEB PRN PRN Reason: SHORTNESS OF BREATH Alprazolam (Xanax) 0.5 mg PO Q8H PRN PRN Reason: ANXIETY Last Admin: 02/14/18 20:36 Dose: 0.5 mg Aspirin (Ecotrin) 81 mg PO DAILY [facility] Last Admin: 02/15/18 14:04 Dose: 81 mg Atorvastatin Calcium (Lipitor) 40 mg PO HS [facility] Last Admin: 02/14/18 20:32 Dose: 40 mg Bisacodyl (Dulcolax Supp) 10 mg RECTAL DAILY PRN PRN Reason: SEVERE CONSITIPATION Chlorhexidine Gluconate (Peridex 0.12% Oral Kit) 15 ml OROPHARYNG BID@0800, 2000 [facility] Last Admin: 02/15/18 14:08 Dose: Not Given Clopidogrel Bisulfate (Plavix) 75 mg PO DAILY [facility] Last Admin: 02/15/18 08:54 Dose: 75 mg Dextrose (D50w Vial) 50 ml IV.PUSH UNSCH PRN PRN Reason: PER HYPOGLYCEMIA PROTOCOL Enalapril Maleate (Vasotec) 10 mg PO BID [facility] Last Admin: 02/15/18 08:55 Dose: 10 mg Famotidine (Pepcid Pf Inj) 10 mg IV.PUSH Q12HR [facility] Last Admin: 02/15/18 14:06 Dose: 10 mg Glucagon (Glucagon Inj) 1 mg OTHER PRN PRN PRN Reason: for Hypoglycemia Protocol Heparin Sodium (Porcine) (Heparin Inj) 5,000 units SQ Q8HR [facility] Last Admin: 02/15/18 07:10 Dose: 5,000 units Ertapenem 1,000 mg/ Sodium (Chloride) 100 mls @ 200 mls/hr IV.SIG Q24H [facility] Last Admin: 02/15/18 14:05 Dose: 200 mls/hr Insulin Aspart (Novolog Insulin Correctional Sugar Inj) 0 unit SQ ACHS [facility]; Protocol Last Admin: 02/15/18 12:29 Dose: Not Given Insulin Detemir (Levemir Inj) 15 unit SQ [facility] Lactulose (Lactulose Liq) 30 ml PO DAILY PRN PRN Reason: SEVERE CONSITIPATION Metoprolol Tartrate (Lopressor) 50 mg PO BID [facility] Last Admin: 02/15/18 08:55 Dose: 50 mg Miscellaneous (Pill Splitter) 1 each OTHER UNSCH PRN PRN Reason: SEE LABEL COMMENTS Miscellaneous Medication () 1 each OROPHARYNG 0000,0400,1200,1600 [facility] Last Admin: 02/15/18 14:08 Dose: Not Given Quetiapine Fumarate (Seroquel) 25 mg PO [facility] Last Admin: 02/14/18 20:33 Dose: 25 mg Sennosides (Senokot) 17.2 mg PO Q12H PRN PRN Reason: Moderate Constipation Sodium Chloride (Ns Flush) 2 ml IV.FLUSH BID [facility] Last Admin: 02/15/18 14:07 Dose: 2 ml Sodium Chloride (Ns Flush) 2 ml IV.FLUSH UNSCH PRN PRN Reason: FLUSH AFTER USING IV ACCESS Spironolactone (Aldactone) 50 mg PO BID@0900,1800 [facility] Last Admin: 02/15/18 08:57 Dose: 50 mg Tramadol HCl (Ultram) 50 mg PO Q6H PRN PRN Reason: Pain 1-10 Last Admin: 02/14/18 14:45 Dose: 50 mg Whey (Beneprotein Powder) 1 packet G-TUBE TID [facility] Last Admin: 02/15/18 14:08 Dose: Not Given Allergies Allergy/AdvReac Type Severity Reaction Status Date / Time penicillin G Allergy Severe UNKNOWN Verified 01/31/18 02:06 Sulfa (Sulfonamide Allergy Severe UNKNOWN Verified 01/31/18 02:06 Antibiotics) ciprofloxacin AdvReac unknown Verified 02/03/18 11:14 Home Medications Medication Instructions Recorded Confirmed Type alprazolam 0.5 mg PO Q8HR PRN 01/31/18 01/31/18 History tramadol 50 mg PO Q6H PRN 01/31/18 01/31/18 History Physical Exam Vital signs: Vital Signs 02/14/18 18:05 02/14/18 19:00 02/14/18 20:00 Temperature 98.8 F Pulse Rate 109 H 87 132 H Respiratory Rate 18 Blood Pressure 121/70 Pulse Oximetry 94 L 02/14/18 21:00 02/14/18 22:00 02/14/18 23:00 Temperature Pulse Rate 104 H 68 68 Respiratory Rate Blood Pressure Pulse Oximetry 02/15/18 00:00 02/15/18 01:00 02/15/18 02:00 Temperature 98.4 F Pulse Rate 72 65 70 Respiratory Rate 18 Blood Pressure 102/50 L Pulse Oximetry 100 02/15/18 03:00 02/15/18 04:00 02/15/18 05:00 Temperature 98.1 F Pulse Rate 71 78 71 Respiratory Rate 18 Blood Pressure 121/63 Pulse Oximetry 96 02/15/18 06:00 02/15/18 07:00 02/15/18 08:00 Temperature 98.5 F Pulse Rate 75 83 108 H Respiratory Rate 18 Blood Pressure 134/66 Pulse Oximetry 96 02/15/18 12:00 02/15/18 13:00 02/15/18 14:00 Temperature 98.1 F Pulse Rate 81 78 92 H Respiratory Rate 18 Blood Pressure 116/60 Pulse Oximetry 94 L 02/15/18 15:00 02/15/18 16:00 Temperature 98.5 F Pulse Rate 90 Respiratory Rate Blood Pressure 121/71 Pulse Oximetry 95 Intake & Output 02/14/18 02/15/18 02/15/18 18:59 06:59 18:59 Intake Total 750 / 750 480 / 480 Output Total 200 / 200 Balance 750 / 750 280 / 280 Weight 81.7 kg Intake: IV 100 / 100 INVanz Inj 1,000 MG In NS Inj 100 / 100 100 ML @ 200 mls/hr IV.SIG Q24H [facility] Rx#:[id number] Oral 650 / 650 480 / 480 Output: Urine 200 / 200 Other: # Voids 6 # Urine Diapers 2 Date of Last Bowel Movement 02/13/18 02/13/18 02/13/18 # Bowel Movements 0 Narrative: GENERAL: NAD SKIN: Warm and dry. HEAD: Normocephalic. EYES: No scleral icterus. No injection or drainage. NECK: Supple, trachea midline. No JVD or lymphadenopathy. CARDIOVASCULAR: Regular rate and rhythm without murmurs, gallops, or rubs. RESPIRATORY: Breath sounds equal bilaterally. No accessory muscle use. GASTROINTESTINAL: Abdomen soft, non-tender, nondistended. MUSCULOSKELETAL: No cyanosis, or edema. BACK: Nontender without obvious deformity. No CVA tenderness. NEURO: No gross deficits. - Urinary Catheter Management Indwelling Temp Sensing Catheter Cath placed during this visit: no Urethral indwelling: Yes Reason for continuing: Hourly intake/output Results 02/14/18 07:59 02/15/18 08:38 Cardiac Enzymes 02/14/18 Range/Units 07:59 AST 23 (15-37) U/L CBC 02/14/18 Range/Units 07:59 WBC 6.3 (4.0-11.0) th/mm3 RBC 3.67 L (4.00-5.30) mil/mm3 Hgb 10.7 L (11.6-15.3) gm/dL Hct 32.8 L (35.0-46.0) % Plt Count 244 (150-450) th/mm3 Neut # (Auto) 4.6 (1.8-7.7) th/mm3 Lymph # (Auto) 1.0 (1.0-4.8) th/mm3 Andrew # (Auto) 0.5 (0.0-0.9) th/mm3 Eos # (Auto) 0.2 (0.0-0.4) th/mm3 Baso # (Auto) 0.1 (0.0-0.2) th/mm3 Comprehensive Metabolic Panel 02/14/18 02/15/18 Range/Units 07:59 08:38 Sodium 145 145 (136-145) meq/L Potassium 4.0 4.1 (3.5-5.1) meq/L Chloride 109 H 111 H (98-107) meq/L Carbon Dioxide 25.5 23.8 (21.0-32.0) meq/L BUN 15 16 (7-18) mg/dL Creatinine 1.31 H 1.30 H (0.50-1.00) mg/dL Calcium 8.5 8.4 L (8.5-10.1) mg/dL AST 23 (15-37) U/L ALT 15 (10-53) U/L Alkaline Phosphatase 72 (45-117) U/L Total Protein 7.0 (6.4-8.2) g/dL Albumin 2.7 L (3.4-5.0) g/dL Intake and Output 02/15/18 02/15/18 02/15/18 06:59 14:59 22:59 Intake Total 480 / 480 Output Total 200 / 200 Balance 280 / 280 Intake: Oral 480 / 480 Output: Urine 200 / 200 Other: Date of Last Bowel Movement 02/13/18 02/13/18 Weight 81.7 kg Assessment and Plan - Assessment (1) Frail elderly Code(s): R54 - Age-related physical debility Status: Acute (2) Acute myocardial infarction Code(s): I21.9 - Acute myocardial infarction, unspecified Status: Acute (3) Febrile illness Code(s): R50.9 - Fever, unspecified Status: Acute (4) Acute kidney injury Code(s): N17.9 - Acute kidney failure, unspecified Status: Acute (5) Atrial fibrillation Code(s): I48.91 - Unspecified atrial fibrillation Status: Acute (6) Cardiogenic shock Code(s): R57.0 - Cardiogenic shock Status: Acute (7) Acute hypoxemic respiratory failure Code(s): J96.01 - Acute respiratory failure with hypoxia Status: Acute (8) Pulmonary edema cardiac cause Code(s): I50.1 - Left ventricular failure, unspecified Status: Acute (9) Acute myocardial infarction Code(s): I21.9 - Acute myocardial infarction, unspecified Status: Acute - Plan 1) Acute myocardial infarction anteriorly 2) Cardiogenic shock 3) NSVT 4) LOLIS 5) AFib 1) Con't ASA/Plavix/Statin 2) BB/RHETT-I/Spironolactone for heart failure EF 30% 3) Still with concern for gait instability and getting out of bed without assistance Continuing PT Discussed with granddaughter Treva, health surrogate, came to the conclusion that there is still a concern for falls, gate instability and getting out of bed without assist Will plan on holding off on anticoagulation at this time Will plan to reevaluate after rehab to see if stronger, more oriented and less gate instability 4) No further cardiovascular issues at this time, waiting to see about rehab possibly [facility] 5) If concerns over the weekend, please call the service for covering physician
[2018-02-15] MEDS: QUEtiapine 25 MG Tablet PO SCH (21:59)
[2018-02-15] MEDS: Insulin Detemir Inj 1,000 UNIT/10 ML Vial SQ SCH (22:01)
[2018-02-16] MEDS: Oral Hygiene Kit OROPHARYNG SCH ×3 (06:35→15:53)
[2018-02-16] MEDS: Heparin - SQ 10,000 UNITS/ML Vial SQ SCH ×3 (06:35→21:53)
[2018-02-16] MEDS: Metoprolol Tartrate 25 MG Tablet PO SCH ×2 (08:59→20:47)
[2018-02-16] MEDS: Famotidine PF Inj 20 MG/2 ML Vial IV.PUSH SCH ×2 (08:59→21:52)
[2018-02-16] MEDS: Chlorhexidine 0.12% Oral Kit 15 ML UDC OROPHARYNG SCH ×2 (09:00→20:49)
[2018-02-16] MEDS: Spironolactone 25 MG Tablet PO SCH ×2 (09:00→17:46)
[2018-02-16] MEDS: Beneprotein Powder Packet G-TUBE SCH ×2 (09:00→12:00)
[2018-02-16] MEDS: Insulin NovoLOG Aspart Correctional Sugar Inj SQ SCH ×4 (09:06→20:50)
--- NOTE | 2018-02-16 12:42 | P.PNIM ---
Subjective Interval history: Patient says he is feeling well, denies any chest pain or shortness of breath. Denies dysuria. Physical Exam Vital signs: Vital Signs 02/15/18 13:00 02/15/18 14:00 02/15/18 15:00 Temperature Pulse Rate 78 92 H 90 Respiratory Rate Blood Pressure Pulse Oximetry 02/15/18 16:00 02/15/18 17:00 02/15/18 18:27 Temperature 98.5 F 98.1 F Pulse Rate 95 H 92 H 74 Respiratory Rate 19 Blood Pressure 121/71 155/80 H Pulse Oximetry 95 96 02/15/18 19:00 02/15/18 20:00 02/16/18 00:00 Temperature 99.3 F 97.9 F Pulse Rate 75 72 68 Respiratory Rate 16 12 Blood Pressure 139/62 115/61 Pulse Oximetry 97 95 02/16/18 04:00 02/16/18 08:00 02/16/18 11:12 Temperature 97.6 F 97.9 F Pulse Rate 80 67 Respiratory Rate 14 20 Blood Pressure 140/71 140/103 H Pulse Oximetry 97 94 L 99 Intake & Output 02/15/18 02/16/18 02/16/18 18:59 06:59 18:59 Intake Total 700 / 700 120 / 120 Output Total 200 / 200 Balance 500 / 500 120 / 120 Weight 82.299 kg Intake: IV 100 / 100 INVanz Inj 1,000 MG In NS Inj 100 / 100 100 ML @ 200 mls/hr IV.SIG Q24H [facility] Rx#:[id number] Oral 600 / 600 120 / 120 Output: Urine 200 / 200 Other: # Voids 5 1 Date of Last Bowel Movement 02/13/18 02/15/18 # Bowel Movements 1 Narrative: GENERAL: Sitting up in bed. Appears comfortable. SKIN: Warm and dry. HEAD: Normocephalic. EYES: No scleral icterus. No injection or drainage. NECK: Supple, trachea midline. No JVD. CARDIOVASCULAR: Regular rate and rhythm without murmurs, gallops, or rubs. RESPIRATORY: Breath sounds equal bilaterally. No accessory muscle use. GASTROINTESTINAL: Abdomen soft, non-tender, nondistended. MUSCULOSKELETAL: No cyanosis, or edema. BACK: Nontender without obvious deformity. No CVA tenderness. - Urinary Catheter Management Indwelling Temp Sensing Catheter Cath placed during this visit: no Urethral indwelling: Yes Reason for continuing: Hourly intake/output Results - Labs CBC & Chem 7: 02/14/18 07:59 02/15/18 08:38 Laboratory Results - last 24 hr 02/15/18 02/15/18 02/15/18 14:12 18:10 21:58 POC Glucose 223 H 291 H 157 H 02/16/18 02/16/18 08:57 12:13 POC Glucose 185 H 233 H Assessment and Plan - Plan //Acute hypoxemic respiratory failure-resolved -Maintain oxygen saturation above 92%. -DuoNeb as needed. //Acute myocardial infarction -Continue antiplatelet therapy (ASA, Plavix) and statin. -Status post PCI with LAD stent ([facility]) 02/03/[address] Peralta -Aldactone 50 mg twice daily -Continue management per cardiology //Ischemic cardiomyopathy -Continue beta-blockers metoprolol 50 mg p.o. 2 times daily, enalapril 10 mg twice daily -Repeat echo February 06, 2018 with EF of 30% //Atrial fibrillation -Currently rate controlled -Continue metoprolol 50mg BID -Currently on DAPT and subcu heparin, if A. fib persists may need full anticoagulation -Cardiology to discuss with family for possible starting of oral anticoagulation //Acute kidney injury Improved. -Avoid nephrotoxins -Nephrology signed off. -follow BMP as needed. //Diabetes mellitus, poorly controlled -Currently on Medium correction sliding scale insulin protocol -Increase Levemir to 15 units HS and adjust as needed. // UTI , ESBL + organism -Currently on ertapenem and monitor culture report -Management per ID = ertapenem until 02/18. PPx: Heparin Discharge Planning: Complete antibiotics on 02/18 PT recommends rehab versus [facility]. Appreciate case management assistance.
[2018-02-16] MEDS: ALPRAZolam 0.5 MG Tablet PO PRN (16:15)
[2018-02-16] MEDS: Insulin Detemir Inj 1,000 UNIT/10 ML Vial SQ SCH (20:49)
[2018-02-16] MEDS: QUEtiapine 25 MG Tablet PO SCH (20:50)
[2018-02-17] MEDS: Heparin - SQ 10,000 UNITS/ML Vial SQ SCH ×2 (05:17→13:03)
[2018-02-17] MEDS: Insulin NovoLOG Aspart Correctional Sugar Inj SQ SCH ×4 (07:47→20:36)
[2018-02-17] MEDS: Spironolactone 25 MG Tablet PO SCH ×2 (08:52→17:45)
[2018-02-17] MEDS: Metoprolol Tartrate 25 MG Tablet PO SCH ×2 (08:53→20:36)
[2018-02-17] MEDS: ALPRAZolam 0.5 MG Tablet PO PRN ×2 (08:53→17:45)
[2018-02-17] MEDS: Famotidine PF Inj 20 MG/2 ML Vial IV.PUSH SCH ×2 (08:54→20:55)
[2018-02-17] MEDS: Chlorhexidine 0.12% Oral Kit 15 ML UDC OROPHARYNG SCH ×2 (08:55→20:38)
--- NOTE | 2018-02-17 12:15 | P.PNIM ---
Subjective Interval history: Sleeping, wakes up for exam. Patient says she is feeling right. Physical Exam Vital signs: Vital Signs 02/16/18 16:00 02/16/18 20:00 02/17/18 00:00 Temperature 98.0 F 97.7 F 97.8 F Pulse Rate 72 87 60 Respiratory Rate 20 20 18 Blood Pressure 132/80 113/77 127/64 Pulse Oximetry 94 L 96 94 L 02/17/18 04:00 02/17/18 08:00 Temperature 97.6 F 98.4 F Pulse Rate 72 78 Respiratory Rate 18 20 Blood Pressure 119/58 L 116/68 Pulse Oximetry 95 95 Intake & Output 02/16/18 02/17/18 02/17/18 18:59 06:59 18:59 Intake Total 460 / 460 240 / 240 Balance 460 / 460 240 / 240 Weight 82.2 kg Intake: IV 100 / 100 INVanz Inj 1,000 MG In NS Inj 100 / 100 100 ML @ 200 mls/hr IV.SIG Q24H [facility] Rx#:[id number] Oral 360 / 360 240 / 240 Other: # Voids 3 3 Date of Last Bowel Movement 02/15/18 # Bowel Movements 1 Narrative: GENERAL: Sleeping, wakes up for exam. Sitting up in bed. Appears comfortable. SKIN: Warm and dry. HEAD: Normocephalic. EYES: No scleral icterus. No injection or drainage. NECK: Supple, trachea midline. No JVD. CARDIOVASCULAR: Regular rate and rhythm without murmurs, gallops, or rubs. RESPIRATORY: Breath sounds equal bilaterally. No accessory muscle use. GASTROINTESTINAL: Abdomen soft, non-tender, nondistended. MUSCULOSKELETAL: No cyanosis, or edema. BACK: Nontender without obvious deformity. No CVA tenderness. - Urinary Catheter Management Indwelling Temp Sensing Catheter Cath placed during this visit: no Urethral indwelling: Yes Reason for continuing: Hourly intake/output Results - Labs CBC & Chem 7: 02/14/18 07:59 02/15/18 08:38 Laboratory Results - last 24 hr 02/16/18 02/16/18 02/16/18 12:13 16:20 20:26 POC Glucose 233 H 229 H 174 H 02/17/18 02/17/18 07:26 11:55 POC Glucose 125 H 228 H Assessment and Plan - Plan //Acute hypoxemic respiratory failure-resolved -Maintain oxygen saturation above 92%. -DuoNeb as needed. //Acute myocardial infarction -Continue antiplatelet therapy (ASA, Plavix) and statin. -Status post PCI with LAD stent ([facility]) 02/03/[address] Peralta -Aldactone 50 mg twice daily -Continue management per cardiology. Stable for discharge. //Ischemic cardiomyopathy -Continue beta-blockers metoprolol 50 mg p.o. 2 times daily, enalapril 10 mg twice daily -Repeat echo February 06, 2018 with EF of 30% //Atrial fibrillation -Currently rate controlled -Continue metoprolol 50mg BID -Currently on DAPT and subcu heparin, if A. fib persists may need full anticoagulation -Cardiology to discuss with family for possible starting of oral anticoagulation //Acute kidney injury Improved. -Avoid nephrotoxins -Nephrology signed off. -follow BMP as needed. //Diabetes mellitus, poorly controlled -Currently on Medium correction sliding scale insulin protocol -Increase Levemir to 15 units HS and adjust as needed. // UTI , ESBL + organism -Currently on ertapenem and monitor culture report -Management per ID = ertapenem until 02/18. PPx: Heparin Discharge Planning: Complete antibiotics on 02/18 PT recommends rehab versus [facility]. Appreciate case management assistance.
[2018-02-17] MEDS: QUEtiapine 25 MG Tablet PO SCH (20:36)
[2018-02-17] MEDS: Insulin Detemir Inj 1,000 UNIT/10 ML Vial SQ SCH (20:37)
[2018-02-18] MEDS: Heparin - SQ 10,000 UNITS/ML Vial SQ SCH ×4 (03:37→21:05)
[2018-02-18] MEDS: ALPRAZolam 0.5 MG Tablet PO PRN ×2 (08:36→17:13)
[2018-02-18] MEDS: Metoprolol Tartrate 25 MG Tablet PO SCH ×2 (08:37→21:04)
[2018-02-18] MEDS: Famotidine PF Inj 20 MG/2 ML Vial IV.PUSH SCH ×2 (08:38→21:05)
[2018-02-18] MEDS: Insulin NovoLOG Aspart Correctional Sugar Inj SQ SCH ×4 (08:38→21:32)
[2018-02-18] MEDS: Chlorhexidine 0.12% Oral Kit 15 ML UDC OROPHARYNG SCH ×2 (08:38→21:06)
[2018-02-18] MEDS ORDERED: glipiZIDE 5 MG Tablet PO SCH (09:23)
--- NOTE | 2018-02-18 09:31 | P.PNIM ---
Subjective Interval history: Patient says he is feeling all right. Denies any chest pain or shortness of breath. Denies nausea or vomiting. Denies dysuria. Physical Exam Vital signs: Vital Signs 02/17/18 12:00 02/17/18 16:00 02/17/18 20:00 Temperature 97.6 F 98.7 F 97.8 F Pulse Rate 74 76 73 Respiratory Rate 20 20 17 Blood Pressure 135/82 130/82 107/55 L Pulse Oximetry 94 L 96 96 02/18/18 00:00 02/18/18 08:00 Temperature 97.9 F 98.0 F Pulse Rate 66 57 L Respiratory Rate 17 18 Blood Pressure 118/55 L 187/74 H Pulse Oximetry 94 L 95 Intake & Output 02/17/18 02/18/18 02/18/18 18:59 06:59 18:59 Intake Total 580 / 580 240 / 240 Balance 580 / 580 240 / 240 Weight 82.2 kg Intake: IV 100 / 100 INVanz Inj 1,000 MG In NS Inj 100 / 100 100 ML @ 200 mls/hr IV.SIG Q24H [facility] Rx#:[id number] Oral 480 / 480 240 / 240 Other: # Voids 2 2 # Bowel Movements 0 Narrative: GENERAL: Sleeping, wakes up for exam. Sitting up in bed. Appears comfortable. No change on exam SKIN: Warm and dry. HEAD: Normocephalic. EYES: No scleral icterus. No injection or drainage. NECK: Supple, trachea midline. No JVD. CARDIOVASCULAR: Regular rate and rhythm without murmurs, gallops, or rubs. RESPIRATORY: Breath sounds equal bilaterally. No accessory muscle use. GASTROINTESTINAL: Abdomen soft, non-tender, nondistended. MUSCULOSKELETAL: No cyanosis, or edema. BACK: Nontender without obvious deformity. No CVA tenderness. - Urinary Catheter Management Indwelling Temp Sensing Catheter Cath placed during this visit: no Urethral indwelling: Yes Reason for continuing: Hourly intake/output Results - Labs CBC & Chem 7: 02/14/18 07:59 02/15/18 08:38 Laboratory Results - last 24 hr 02/17/18 02/17/18 02/17/18 11:55 17:46 20:07 POC Glucose 228 H 208 H 182 H 02/18/18 02/18/18 07:27 07:35 POC Glucose 198 H 173 H Assessment and Plan - Plan //Acute hypoxemic respiratory failure-resolved -Maintain oxygen saturation above 92%. -DuoNeb as needed. //Acute myocardial infarction -Continue antiplatelet therapy (ASA, Plavix) and statin. -Status post PCI with LAD stent ([facility]) 02/03/[address] Peralta -Aldactone 50 mg twice daily -Continue management per cardiology. Stable for discharge. //Ischemic cardiomyopathy -Continue beta-blockers metoprolol 50 mg p.o. 2 times daily, enalapril 10 mg twice daily -Repeat echo February 06, 2018 with EF of 30% //Atrial fibrillation -Currently rate controlled -Continue metoprolol 50mg BID -Currently on DAPT and subcu heparin, if A. fib persists may need full anticoagulation -Cardiology to discuss with family for possible starting of oral anticoagulation = Holding off on anticoagulation for now due to fall risk. Follow with cardiology as outpatient. Continue current medication regimen. //Acute kidney injury Improved. -Avoid nephrotoxins -Nephrology signed off. -follow BMP as needed. //Diabetes mellitus, poorly controlled -Currently on Medium correction sliding scale insulin protocol -Increase Levemir to 15 units HS and adjust as needed. = Relatively well controlled on insulin regimen. Continue. // UTI , ESBL + organism -Currently on ertapenem and monitor culture report -Management per ID = ertapenem until 02/18. Last dose today. PPx: Heparin Discharge Planning: Complete antibiotics today PT recommends rehab versus [facility]. Appreciate case management assistance.
--- NOTE | 2018-02-18 09:32 | P.DS ---
Date of admission: 01/31/18 03:51 Primary care physician: Pavithra Carbone MD Brief History from admission: 79-year-old female with a history of diabetes, anxiety, depression, history of rectal cancer in remission, CAD status post PCI, recent admission on 01/28 for non-ST elevation [place] discharged on 01/29.. Presents with acute onset of dull pressure-like nonradiating chest pain resolved with aspirin and sublingual nitroglycerin. She is currently chest pain-free. She has small cuts on both first toes, as well as abrasion on right elbow, however is unsure how she got these. She continues to report the chest pain is resolved. Patient says she does not believe she was given any additional medications upon discharge from the hospital most recently DS: Medications - Discharge Medications Prescriptions: alprazolam 0.5 mg PO Q8HR PRN 3 Days #9 tab PRN Reason: Anxiety DS: Summary Hospital Course: //Acute hypoxemic respiratory failure-resolved -Maintain oxygen saturation above 92%. -DuoNeb as needed. //Acute myocardial infarction -Continue antiplatelet therapy (ASA, Plavix) and statin. -Status post PCI with LAD stent ([facility]) 02/03/[address] Peralta -Aldactone 50 mg twice daily -Continue management per cardiology. Stable for discharge. //Ischemic cardiomyopathy -Continue beta-blockers metoprolol 50 mg p.o. 2 times daily, enalapril 10 mg twice daily -Repeat echo February 06, 2018 with EF of 30% //Atrial fibrillation -Currently rate controlled -Continue metoprolol 50mg BID -Currently on DAPT and subcu heparin, if A. fib persists may need full anticoagulation -Cardiology to discuss with family for possible starting of oral anticoagulation = Holding off on anticoagulation for now due to fall risk. Follow with cardiology as outpatient. Continue current medication regimen. //Acute kidney injury Improved. -Avoid nephrotoxins -Nephrology signed off. -follow BMP as needed. //Diabetes mellitus, poorly controlled -Currently on Medium correction sliding scale insulin protocol -Increase Levemir to 15 units HS and adjust as needed. = Relatively well controlled on insulin regimen. Continue. // UTI , ESBL + organism -Currently on ertapenem and monitor culture report -Management per ID = ertapenem until 02/18. Last dose today. PPx: Heparin Discharge Planning: Complete antibiotics today PT recommends rehab versus [facility]. Appreciate case management assistance. - Time Spent with Patient Total time spent providing and/or coordinating discharge services: Greater than 30 minutes Exam Vital signs: Vital Signs 02/17/18 12:00 02/17/18 16:00 02/17/18 20:00 Temperature 97.6 F 98.7 F 97.8 F Pulse Rate 74 76 73 Respiratory Rate 20 20 17 Blood Pressure 135/82 130/82 107/55 L Pulse Oximetry 94 L 96 96 02/18/18 00:00 02/18/18 08:00 Temperature 97.9 F 98.0 F Pulse Rate 66 57 L Respiratory Rate 17 18 Blood Pressure 118/55 L 187/74 H Pulse Oximetry 94 L 95 Intake & Output 02/17/18 02/18/18 02/18/18 18:59 06:59 18:59 Intake Total 580 / 580 240 / 240 Balance 580 / 580 240 / 240 Weight 82.2 kg Intake: IV 100 / 100 INVanz Inj 1,000 MG In NS Inj 100 / 100 100 ML @ 200 mls/hr IV.SIG Q24H [facility] Rx#:[id number] Oral 480 / 480 240 / 240 Other: # Voids 2 2 # Bowel Movements 0 Results Procedures completed during hospitalization: No invasive procedures. Labs on day of discharge: Labs from last 24 hours 02/18/18 02/18/18 02/17/18 07:35 07:27 20:07 POC Glucose 173 H 198 H 182 H 02/17/18 02/17/18 17:46 11:55 POC Glucose 208 H 228 H - Impressions ITS Impressions Abdomen/Bladder Ultrasound 02/02/18 00:00 CONCLUSION: 1. Increased renal echogenicity typical of chronic parenchymal changes. 2. No evidence of acute obstructive uropathy. 3. Small bilateral benign-appearing cysts. Abdomen/Pelvis CT 02/02/18 00:00 CONCLUSION: 1. No acute abnormalities are seen in the abdomen or pelvis. 2. Mildly atrophic left kidney with vascular calcifications. 3. Aortoiliac atherosclerosis. No aneurysm. 4. Cholelithiasis. 5. Bilateral small pleural effusions and mild to moderate basilar atelectasis. 6. Coronary artery calcification. 7. Nonspecific mass of the visualized left breast. Last mammogram in our system was 2012. Up-to-date bilateral mammography with a diagnostic left breast mammogram recommended. Chest X-Ray 02/06/18 06:00 CONCLUSION: Interval extubation. Stable aeration. Head MRI 02/10/18 10:53 CONCLUSION: 1. No acute findings. No recent infarct identified. Discharge Plan - Discharge Disposition Patient Disposition: [facility] Rehab Inpatient - Discharge Condition Condition: Good - Discharge Order Discharge Orders: Discharge Order (Routine); Ordered 02/18/18 Ordered By: Parmjit Rivers - Discharge Details Anticipated Discharge Date: 02/18/18 Discharge Comment: Okay to discharge after last dose of ertapenem today - Physicians Team Primary Care Provider: Pavithra Carbone Attending Provider: Parmjit Rivers Other Providers: Sirena Pack ; Kerrie Macias MD ; Ilia Pimentel MD ; Nicolle Conrad MD ; Veronica Ro MD ; Sina Courtney MD
[2018-02-18] MEDS: Spironolactone 25 MG Tablet PO SCH ×2 (09:35→17:13)
[2018-02-18] MEDS: QUEtiapine 25 MG Tablet PO SCH (21:05)
[2018-02-18] MEDS: Insulin Detemir Inj 1,000 UNIT/10 ML Vial SQ SCH ×2 (21:06→21:09)
--- NOTE | 2018-02-18 23:42 | P.PNCA ---
Subjective Interval history: No events overnight No complaints Medications and Allergies Active Medications: Active Medications Acetaminophen (Tylenol) 500 mg PO Q4H PRN PRN Reason: FEVER > 100.4 F Last Admin: 02/03/18 22:56 Dose: 500 mg Al Hydroxide/Mg Hydroxide (Milk Of Magnpiper Liq) 30 ml PO Q12H PRN PRN Reason: Mild Constipation Albuterol (Duoneb Neb (Prn)) 1 ampul NEB Q2HR NEB PRN PRN Reason: SHORTNESS OF BREATH Alprazolam (Xanax) 0.5 mg PO Q8H PRN PRN Reason: ANXIETY Last Admin: 02/18/18 17:13 Dose: 0.5 mg Aspirin (Ecotrin) 81 mg PO DAILY [facility] Last Admin: 02/18/18 08:37 Dose: 81 mg Atorvastatin Calcium (Lipitor) 40 mg PO HS [facility] Last Admin: 02/18/18 21:04 Dose: 40 mg Bisacodyl (Dulcolax Supp) 10 mg RECTAL DAILY PRN PRN Reason: SEVERE CONSITIPATION Chlorhexidine Gluconate (Peridex 0.12% Oral Kit) 15 ml OROPHARYNG BID@0800, 2000 [facility] Last Admin: 02/18/18 21:06 Dose: Not Given Clopidogrel Bisulfate (Plavix) 75 mg PO DAILY [facility] Last Admin: 02/18/18 08:36 Dose: 75 mg Dextrose (D50w Vial) 50 ml IV.PUSH UNSCH PRN PRN Reason: PER HYPOGLYCEMIA PROTOCOL Enalapril Maleate (Vasotec) 10 mg PO BID [facility] Last Admin: 02/18/18 21:05 Dose: 10 mg Famotidine (Pepcid Pf Inj) 10 mg IV.PUSH Q12HR [facility] Last Admin: 02/18/18 21:05 Dose: 10 mg Glucagon (Glucagon Inj) 1 mg OTHER PRN PRN PRN Reason: for Hypoglycemia Protocol Heparin Sodium (Porcine) (Heparin Inj) 5,000 units SQ Q8HR [facility] Last Admin: 02/18/18 21:05 Dose: 5,000 units Insulin Aspart (Novolog Insulin Correctional Sugar Inj) 0 unit SQ [facility]; Protocol Last Admin: 02/18/18 21:32 Dose: Not Given Insulin Detemir (Levemir Inj) 15 unit SQ [facility] Last Admin: 02/18/18 21:09 Dose: 15 unit Lactulose (Lactulose Liq) 30 ml PO DAILY PRN PRN Reason: SEVERE CONSITIPATION Metoprolol Tartrate (Lopressor) 50 mg PO BID [facility] Last Admin: 02/18/18 21:04 Dose: 50 mg Miscellaneous (Pill Splitter) 1 each OTHER UNSCH PRN PRN Reason: SEE LABEL COMMENTS Quetiapine Fumarate (Seroquel) 25 mg PO [facility] Last Admin: 02/18/18 21:05 Dose: 25 mg Sennosides (Senokot) 17.2 mg PO Q12H PRN PRN Reason: Moderate Constipation Sodium Chloride (Ns Flush) 2 ml IV.FLUSH BID [facility] Last Admin: 02/18/18 21:06 Dose: 2 ml Sodium Chloride (Ns Flush) 2 ml IV.FLUSH UNSCH PRN PRN Reason: FLUSH AFTER USING IV ACCESS Spironolactone (Aldactone) 50 mg PO BID@0900,1800 [facility] Last Admin: 02/18/18 17:13 Dose: 50 mg Tramadol HCl (Ultram) 50 mg PO Q6H PRN PRN Reason: Pain 1-10 Last Admin: 02/14/18 14:45 Dose: 50 mg Allergies Allergy/AdvReac Type Severity Reaction Status Date / Time penicillin G Allergy Severe UNKNOWN Verified 01/31/18 02:06 Sulfa (Sulfonamide Allergy Severe UNKNOWN Verified 01/31/18 02:06 Antibiotics) ciprofloxacin AdvReac unknown Verified 02/03/18 11:14 Home Medications Medication Instructions Recorded Confirmed Type tramadol 50 mg PO Q6H PRN 01/31/18 01/31/18 History Physical Exam Vital signs: Vital Signs 02/18/18 00:00 02/18/18 08:00 02/18/18 12:00 Temperature 97.9 F 98.0 F 97.6 F Pulse Rate 66 57 L 52 L Respiratory Rate 17 18 20 Blood Pressure 118/55 L 187/74 H 155/72 H Pulse Oximetry 94 L 95 98 02/18/18 16:00 02/18/18 20:00 Temperature 97.8 F 97.4 F L Pulse Rate 90 77 Respiratory Rate 20 17 Blood Pressure 149/75 H 135/63 Pulse Oximetry 99 93 L Intake & Output 02/18/18 02/18/18 02/19/18 06:59 18:59 06:59 Intake Total 240 / 240 808 / 808 Balance 240 / 240 808 / 808 Weight 82.2 kg Intake: IV 100 / 100 INVanz Inj 1,000 MG In NS Inj 100 / 100 100 ML @ 200 mls/hr IV.SIG Q24H [facility] Rx#:[id number] Oral 240 / 240 708 / 708 Other: # Voids 2 8 Date of Last Bowel Movement 02/17/18 Narrative: GENERAL: Sleeping, wakes up for exam. Sitting up in bed. Appears comfortable. No change on exam SKIN: Warm and dry. HEAD: Normocephalic. EYES: No scleral icterus. No injection or drainage. NECK: Supple, trachea midline. No JVD. CARDIOVASCULAR: Regular rate and rhythm without murmurs, gallops, or rubs. RESPIRATORY: Breath sounds equal bilaterally. No accessory muscle use. GASTROINTESTINAL: Abdomen soft, non-tender, nondistended. MUSCULOSKELETAL: No cyanosis, or edema. BACK: Nontender without obvious deformity. No CVA tenderness. - Urinary Catheter Management Indwelling Temp Sensing Catheter Cath placed during this visit: no Urethral indwelling: Yes Reason for continuing: Hourly intake/output Results 02/14/18 07:59 02/15/18 08:38 Intake and Output 02/18/18 02/18/18 02/19/18 14:59 22:59 06:59 Intake Total 100 / 100 708 / 708 Balance 100 / 100 708 / 708 Intake: IV 100 / 100 INVanz Inj 1,000 MG In NS Inj 100 / 100 100 ML @ 200 mls/hr IV.SIG Q24H [facility] Rx#:[id number] Oral 708 / 708 Other: # Voids 8 Date of Last Bowel Movement 02/17/18 Assessment and Plan - Assessment (1) Frail elderly Code(s): R54 - Age-related physical debility Status: Acute (2) Acute myocardial infarction Code(s): I21.9 - Acute myocardial infarction, unspecified Status: Acute (3) Febrile illness Code(s): R50.9 - Fever, unspecified Status: Acute (4) Acute kidney injury Code(s): N17.9 - Acute kidney failure, unspecified Status: Acute (5) Atrial fibrillation Code(s): I48.91 - Unspecified atrial fibrillation Status: Acute (6) Cardiogenic shock Code(s): R57.0 - Cardiogenic shock Status: Acute (7) Acute hypoxemic respiratory failure Code(s): J96.01 - Acute respiratory failure with hypoxia Status: Acute (8) Pulmonary edema cardiac cause Code(s): I50.1 - Left ventricular failure, unspecified Status: Acute (9) Acute myocardial infarction Code(s): I21.9 - Acute myocardial infarction, unspecified Status: Acute - Plan 1) Acute myocardial infarction anteriorly 2) Cardiogenic shock 3) NSVT 4) LOLIS 5) AFib 1) Con't ASA/Plavix/Statin 2) BB/RHETT-I/Spironolactone for heart failure EF 30% 3) Still with concern for gait instability and getting out of bed without assistance Continuing PT Discussed with granddaughter Treva, health surrogate, came to the conclusion that there is still a concern for falls, gate instability and getting out of bed without assist Will plan on holding off on anticoagulation at this time Will plan to reevaluate after rehab to see if stronger, more oriented and less gate instability 4) No further cardiovascular issues at this time, waiting to see about rehab possibly [facility]
[2018-02-19] MEDS: Heparin - SQ 10,000 UNITS/ML Vial SQ SCH ×3 (05:46→21:21)
[2018-02-19] MEDS: Chlorhexidine 0.12% Oral Kit 15 ML UDC OROPHARYNG SCH ×2 (09:16→21:21)
[2018-02-19] MEDS: Metoprolol Tartrate 25 MG Tablet PO SCH ×2 (09:20→20:38)
[2018-02-19] MEDS: Insulin NovoLOG Aspart Correctional Sugar Inj SQ SCH ×4 (09:21→21:23)
[2018-02-19] MEDS: Famotidine PF Inj 20 MG/2 ML Vial IV.PUSH SCH ×2 (09:23→20:37)
[2018-02-19] MEDS: Spironolactone 25 MG Tablet PO SCH ×2 (09:23→18:01)
--- NOTE | 2018-02-19 13:59 | P.PNPAL ---
Reason for Visit Reason for visit: a. To assist with evaluation and management of symptoms including: Weakness, confusion, anxiety b. To assist medical decision maker(s) with: better understanding of current medical conditions; weighing benefits/burdens of medical treatment options; making medical treatment decisions. Subjective Subjective/Interval History: This is an 87-year-old female with a past medical history of diabetes, hypertension, rectal cancer in remission, anxiety, depression, coronary artery disease status post stent, former smoker who presented to the emergency department 01/31/2018 plane of chest pain, substernal, pressure, nonradiating, persistent, which resolved with aspirin and sublingual nitro given to her by EMS. She had taken a Xanax earlier to try and help her sleep. Her presenting troponin was 1.25 did she had been seen in the ED on 01/28 and had troponin levels of 0.11, 0.96, 1.08. She was diagnosed with a non-STEMI and seen by cardiology. Cardiac catheterization was held secondary to renal insufficiency. Nephrology consultation was requested for further evaluation. Patient seen for follow-up of symptom management for weakness, confusion and anxiety and to assist family in goals of medical treatment. Patient less confused and remains out of restraints. She is participating with PT, OT. ST notes due to talkativeness limited ability to complete therapy this morning. D/w PT-- she was able to attempt to participate in am activity regimen , however forgetful of multi step commands, and still with limited safety awareness. She has been ambulating well around room, short robles distances. d/t unaware of safety limitations Would not be safe to live alone. No new labs or imaging Pt seen in room no visitors present. She is awake sitting upright in the bed she is actually using her call sher. She tells me she is trying to call to get help to get out of bed. She tells me she feels like she wants to go for a walk and that she would feel better if she could just go for a walk more often. Explained that she would need assistance so that she could safely get up, she says the " Sunday girls" might be coming to help. Attempt to explore with her orientation ask her has questions about hospital etc. When I asked where she is at she says "oh there we go with that again" and says she is tired of answering the same questions. She is cooperative. She knows that she is in the hospital , she tells me she is ready to get out of here soon. She thinks she is going to go home explained that she will need ongoing rehab. She tells me she needs to use the restroom and would like to go for a walk with the nurse. She denies any pain. She denies any shortness of breath. She endorses appetite is fair. Discussed with case management. [facility] rehab evaluation pending, at this time facility rehab director and family are in communication with insurance regarding acceptance. Case management informs that Dr. Lundberg consultation may be needed to assist with peer to peer for placement at [facility]. . Family/Friend Interactions: Following exam call to granddaughter Treva, voicemail left. (She has requested frequent updates on patient status, condition) . Advance Directives Living Will: Copy in medical record Health Care Surrogate: Copy in medical record Health Care Surrogate Name and Number: Treva Arvizu Objective Vital Signs: Vital Signs 02/18/18 16:00 02/18/18 20:00 02/19/18 00:00 Temperature 97.8 F 97.4 F L 97.8 F Pulse Rate 90 77 68 Respiratory Rate 20 17 20 Blood Pressure 149/75 H 135/63 150/65 H Pulse Oximetry 99 93 L 96 02/19/18 04:00 02/19/18 08:00 02/19/18 12:00 Temperature 97.5 F L 98.2 F 97.7 F Pulse Rate 60 91 H 83 Respiratory Rate 18 20 20 Blood Pressure 134/75 134/63 153/86 H Pulse Oximetry 95 96 94 L Intake & Output 02/18/18 02/19/18 02/19/18 18:59 06:59 18:59 Intake Total 808 / 808 120 / 120 Output Total 300 / 300 Balance 808 / 808 -180 / -180 Weight 83.2 kg Intake: IV 100 / 100 INVanz Inj 1,000 MG In NS Inj 100 / 100 100 ML @ 200 mls/hr IV.SIG Q24H [facility] Rx#:[id number] Oral 708 / 708 120 / 120 Output: Urine 300 / 300 Other: # Voids 8 Date of Last Bowel Movement 02/17/18 02/17/18 # Bowel Movements 0 Physical Exam: CONSTITUTIONAL/GENERAL: This is an adequately nourished patient,upright in bed, awake, talkative, no distress. TUBES/LINES/DRAINS: PIV UE CARDIOVASCULAR: Irregular rhythm, controlled rate , no murmur. No JVD. Peripheral pulses symmetric. RESPIRATORY/CHEST: Symmetric, unlabored respirations. Clear to auscultation. Breath sounds equal bilaterally. No wheezes, rales, or rhonchi. GASTROINTESTINAL: Abdomen soft, non-tender, nondistended. No hepato-splenomegaly , or palpable masses. No guarding. Bowel sounds present. GENITOURINARY: Without palpable bladder distension. verbalizes need to void during my visit MUSCULOSKELETAL: Extremities without clubbing, cyanosis, or edema. No joint tenderness or effusion noted. No calf tenderness. No mottling or clubbing. NEUROLOGICAL: Alert, oriented to self , family, hospital. no focal deficits. follows commands. limited insight. Moves all extremities. PSYCHIATRIC:calm, cooperative. . Diagnostic Tests Laboratory: Laboratory Results - last 72 hr 02/16/18 02/16/18 02/17/18 16:20 20:26 07:26 POC Glucose 229 H 174 H 125 H 02/17/18 02/17/18 02/17/18 11:55 17:46 20:07 POC Glucose 228 H 208 H 182 H 02/18/18 02/18/18 02/18/18 07:27 07:35 12:51 POC Glucose 198 H 173 H 202 H 02/18/18 02/18/18 02/19/18 18:12 19:30 07:06 POC Glucose 225 H 230 H 171 H 02/19/18 12:03 POC Glucose 238 H Result Diagrams: 02/14/18 07:59 02/15/18 08:38 Procedures: 02/02: Intubation 02/05: Extubation . Assessment and Plan - Disease Oriented Problem List (1) Non-ST elevated myocardial infarction (non-STEMI) (2) Acute kidney injury (3) Type 2 diabetes mellitus (4) Acute hypoxemic respiratory failure (5) Pulmonary edema cardiac cause (6) Acute myocardial infarction (7) Atrial fibrillation (8) Cardiogenic shock - Symptom Scale (1) Chest pain 0-10 Scale: Unable to quantify (2) Dyspnea 0-10 Scale: Unable to quantify (3) Constipation 0-10 Scale: Unable to quantify Pertinent Non-Medical Issues: Psychosocial: She was born in [place] and lived there most of her life. She was however her passed in 1983. She moved to [place] in the early s. 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 She has 1 son. 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 Legal: Living will on the chart with healthcare surrogate. Ethical issues impacting care: None noted. . Important Contacts: Granddaughter: Treva Arvizu Son: Vicky Arvizu . Prognosis: Her prognosis is guarded. She is of advanced age at 87 and showing signs of decline. In addition to renal insufficiency she has multiple cardiac risk factors to include hypertension, hyperlipidemia, obesity with BMI 30.8 kg/m, diabetes with a hemoglobin A1c 7.8 and evidence of at minimum a non-STEMI. Cardiac catheterization per the lump inspector report would be a high risk/"heroic " procedure. She is also febrile with no known source of infection. Urinalysis has been negative on 01/29 and 01/31, influenza is negative and blood cultures are negative times 1 day. Empiric antibiotic coverage is being initiated as cultures are pending. She is at increased risk of continued hospitalizations, complications and decline. . Code Status: Full Code Plan: Legal decision maker: Patient at this time is confused and not capacitated for decision-making. It is uncertain if she will regain capacity. Living will and healthcare surrogate on the chart name her granddaughter Treva and Treva's brother Gonzalez as joint healthcare surrogate's. Gonzalez is a member of the [employer] currently regarding the president and unavailable. Goals: Aggressive CODE STATUS: FULL CODE SYMPTOMS: * Confusion: episodic/ sundowners overnight with confusion and tries to get out of bed, placing her at risk for fall, prev. requiring restraints. This exacerbates her anxiety. has not required restraints in many days. UA sent negative. overall appears to be improving * Weakness: Globally weak. At baseline, prior to admission, used walker/ wheelchair. Now requires 2 person maximum assistance plus walker. Family and patient goals aggressive. Requesting rehabilitation. [facility] following, eval/ placement there pending. Participating in PT 7 days a week, with slow improvement. * Anxiety: Worsens overnight, started on 25 mg of Seroquel - overall improving, calmer/less confused in the past several days. Has required prn 0.5mg Xanax PO about once per day. if anxiety/behaviors worsen consider Increase to 50 mg . Monitor response. no pain or other complaints voiced during my visit. Palliative care will continue to follow the patient during hospital course as condition evolves, to assist patient/decision-maker with understanding of their medical conditions, weighing benefits/burdens of treatment options, for clarification of goals of treatment. Additionally will assist with any symptoms of palliative concern. . Attestation Attestation: To help prompt me to consider important information that might be impacting today's encounter and assessment, information from prior notes written by myself or my colleagues may have been "brought forward" into today's note. My signature on this note, however, is an attestation that I personally performed the exam, history, and/or decision-making noted today, and, unless otherwise indicated, the interactions with patient, family, and staff as well as the review of records all occurred today. I also attest that the listed assessment and stated plan reflect my best clinical judgment today based on the combination of historical information, prior notes, and today's exam/ interactions. When time spent is documented, it refers only to time spent today by the signer, or if indicated, combined time spent today by collaborating physician/nurse practitioner.
--- NOTE | 2018-02-19 15:20 | P.DIET ---
Nutritional Evaluation Type of nutrition evaluation: follow-up Nutrition consult regarding: Tube Feeding, Diet Evaluation Subjective Subjective Comments: Eating 75-100%. Objective - Diagnosis Non-Stemi - Objective Dietitian Reviewed in Medical Record: Current diet, Curent medications, Intake & Output, Labs, Medical history, Tube feeding Diet Order: Mechanical Soft, nectar thickened liquids Assessment Assessment: Pts TF d/ed on 02/06, pt now on regular, mech soft, nectar consistency thickened liquids diet per ST. Pt has a good PO intake, eating 75-100% for most meals. Wt remains above IBW range with a BMI of 31.5. Recommendations: Continue current POC CONSULT RD if needed.
--- NOTE | 2018-02-19 15:38 | P.PNIM ---
Subjective Interval history: Patient says she is feeling right. Denies any chest pain or shortness of breath. Denies nausea or vomiting. Feels comfortable. Denies any dysuria. Physical Exam Vital signs: Vital Signs 02/18/18 16:00 02/18/18 20:00 02/19/18 00:00 Temperature 97.8 F 97.4 F L 97.8 F Pulse Rate 90 77 68 Respiratory Rate 20 17 20 Blood Pressure 149/75 H 135/63 150/65 H Pulse Oximetry 99 93 L 96 02/19/18 04:00 02/19/18 08:00 02/19/18 12:00 Temperature 97.5 F L 98.2 F 97.7 F Pulse Rate 60 91 H 83 Respiratory Rate 18 20 20 Blood Pressure 134/75 134/63 153/86 H Pulse Oximetry 95 96 94 L Intake & Output 02/18/18 02/19/18 02/19/18 18:59 06:59 18:59 Intake Total 808 / 808 120 / 120 Output Total 300 / 300 Balance 808 / 808 -180 / -180 Weight 83.2 kg Intake: IV 100 / 100 INVanz Inj 1,000 MG In NS Inj 100 / 100 100 ML @ 200 mls/hr IV.SIG Q24H [facility] Rx#:[id number] Oral 708 / 708 120 / 120 Output: Urine 300 / 300 Other: # Voids 8 Date of Last Bowel Movement 02/17/18 02/17/18 # Bowel Movements 0 Narrative: GENERAL: Sitting in bed. Appears comfortable. SKIN: Warm and dry. HEAD: Normocephalic. EYES: No scleral icterus. No injection or drainage. NECK: Supple, trachea midline. No JVD. CARDIOVASCULAR: Regular rate and rhythm without murmurs, gallops, or rubs. RESPIRATORY: Breath sounds equal bilaterally. No accessory muscle use. GASTROINTESTINAL: Abdomen soft, non-tender, nondistended. MUSCULOSKELETAL: No cyanosis, or edema. BACK: Nontender without obvious deformity. No CVA tenderness. - Urinary Catheter Management Indwelling Temp Sensing Catheter Cath placed during this visit: no Urethral indwelling: Yes Reason for continuing: Hourly intake/output Results - Labs CBC & Chem 7: 02/14/18 07:59 02/15/18 08:38 Laboratory Results - last 24 hr 02/18/18 02/18/18 02/19/18 18:12 19:30 07:06 POC Glucose 225 H 230 H 171 H 02/19/18 12:03 POC Glucose 238 H - Procedures No invasive procedures. Assessment and Plan - Plan //Acute hypoxemic respiratory failure-resolved -Maintain oxygen saturation above 92%. -DuoNeb as needed. //Acute myocardial infarction -Continue antiplatelet therapy (ASA, Plavix) and statin. -Status post PCI with LAD stent (LUZMARIA) 02/03/[address] Peralta -Aldactone 50 mg twice daily -Continue management per cardiology. Stable for discharge. //Ischemic cardiomyopathy -Continue beta-blockers metoprolol 50 mg p.o. 2 times daily, enalapril 10 mg twice daily -Repeat echo February 06, 2018 with EF of 30% = Continue medications as per cardiology. //Atrial fibrillation -Currently rate controlled -Continue metoprolol 50mg BID -Currently on DAPT and subcu heparin, if A. fib persists may need full anticoagulation -Cardiology to discuss with family for possible starting of oral anticoagulation = Holding off on anticoagulation for now due to fall risk. Follow with cardiology as outpatient. Continue current medication regimen. //Acute kidney injury Improved. -Avoid nephrotoxins -Nephrology signed off. -follow BMP as needed. //Diabetes mellitus, poorly controlled -Currently on Medium correction sliding scale insulin protocol -Increase Levemir to 15 units HS and adjust as needed. = Relatively well controlled on insulin regimen. Continue. // UTI , ESBL + organism -Currently on ertapenem and monitor culture report -Completed ertapenem 02/18. PPx: Heparin Discharge Planning: Completed antibiotics. PT recommends rehab versus [facility]. Appreciate case management assistance.
[2018-02-19] MEDS: ALPRAZolam 0.5 MG Tablet PO PRN (16:41)
[2018-02-19] MEDS: QUEtiapine 25 MG Tablet PO SCH (20:38)
[2018-02-19] MEDS: Insulin Detemir Inj 1,000 UNIT/10 ML Vial SQ SCH (21:21)
--- NOTE | 2018-02-19 23:36 | P.PNCA ---
Subjective Interval history: No events overnight Up to chair without complaints Medications and Allergies Active Medications: Active Medications Acetaminophen (Tylenol) 500 mg PO Q4H PRN PRN Reason: FEVER > 100.4 F Last Admin: 02/03/18 22:56 Dose: 500 mg Al Hydroxide/Mg Hydroxide (Milk Of Nita Liq) 30 ml PO Q12H PRN PRN Reason: Mild Constipation Albuterol (Duoneb Neb (Prn)) 1 ampul NEB Q2HR NEB PRN PRN Reason: SHORTNESS OF BREATH Alprazolam (Xanax) 0.5 mg PO Q8H PRN PRN Reason: ANXIETY Last Admin: 02/19/18 16:41 Dose: 0.5 mg Aspirin (Aspirin Chew) 81 mg PO DAILY [facility] Last Admin: 02/19/18 13:19 Dose: 81 mg Atorvastatin Calcium (Lipitor) 40 mg PO HS [facility] Last Admin: 02/19/18 20:38 Dose: 40 mg Bisacodyl (Dulcolax Supp) 10 mg RECTAL DAILY PRN PRN Reason: SEVERE CONSITIPATION Chlorhexidine Gluconate (Peridex 0.12% Oral Kit) 15 ml OROPHARYNG BID@0800, 2000 [facility] Last Admin: 02/19/18 21:21 Dose: Not Given Clopidogrel Bisulfate (Plavix) 75 mg PO DAILY [facility] Last Admin: 02/19/18 09:20 Dose: 75 mg Dextrose (D50w Vial) 50 ml IV.PUSH UNSCH PRN PRN Reason: PER HYPOGLYCEMIA PROTOCOL Enalapril Maleate (Vasotec) 10 mg PO BID [facility] Last Admin: 02/19/18 20:38 Dose: 10 mg Famotidine (Pepcid Pf Inj) 10 mg IV.PUSH Q12HR [facility] Last Admin: 02/19/18 20:37 Dose: 10 mg Glucagon (Glucagon Inj) 1 mg OTHER PRN PRN PRN Reason: for Hypoglycemia Protocol Heparin Sodium (Porcine) (Heparin Inj) 5,000 units SQ Q8HR [facility] Last Admin: 02/19/18 21:21 Dose: 5,000 units Insulin Aspart (Novolog Insulin Correctional Sugar Inj) 0 unit SQ [facility]; Protocol Last Admin: 02/19/18 21:23 Dose: 1 unit Insulin Detemir (Levemir Inj) 15 unit SQ [facility] Last Admin: 02/19/18 21:21 Dose: 15 unit Lactulose (Lactulose Liq) 30 ml PO DAILY PRN PRN Reason: SEVERE CONSITIPATION Metoprolol Tartrate (Lopressor) 50 mg PO BID [facility] Last Admin: 02/19/18 20:38 Dose: 50 mg Miscellaneous (Pill Splitter) 1 each OTHER UNSCH PRN PRN Reason: SEE LABEL COMMENTS Quetiapine Fumarate (Seroquel) 25 mg PO HS [facility] Last Admin: 02/19/18 20:38 Dose: 25 mg Sennosides (Senokot) 17.2 mg PO Q12H PRN PRN Reason: Moderate Constipation Sodium Chloride (Ns Flush) 2 ml IV.FLUSH BID [facility] Last Admin: 02/19/18 21:21 Dose: 2 ml Sodium Chloride (Ns Flush) 2 ml IV.FLUSH UNSCH PRN PRN Reason: FLUSH AFTER USING IV ACCESS Spironolactone (Aldactone) 50 mg PO BID@0900,1800 [facility] Last Admin: 02/19/18 18:01 Dose: 50 mg Tramadol HCl (Ultram) 50 mg PO Q6H PRN PRN Reason: Pain 1-10 Last Admin: 02/14/18 14:45 Dose: 50 mg Allergies Allergy/AdvReac Type Severity Reaction Status Date / Time penicillin G Allergy Severe UNKNOWN Verified 01/31/18 02:06 Sulfa (Sulfonamide Allergy Severe UNKNOWN Verified 01/31/18 02:06 Antibiotics) ciprofloxacin AdvReac unknown Verified 02/03/18 11:14 Home Medications Medication Instructions Recorded Confirmed Type tramadol 50 mg PO Q6H PRN 01/31/18 01/31/18 History Physical Exam Vital signs: Vital Signs 02/19/18 00:00 02/19/18 04:00 02/19/18 08:00 Temperature 97.8 F 97.5 F L 98.2 F Pulse Rate 68 60 91 H Respiratory Rate 20 18 20 Blood Pressure 150/65 H 134/75 134/63 Pulse Oximetry 96 95 96 02/19/18 12:00 02/19/18 16:00 02/19/18 17:44 Temperature 97.7 F 97.8 F Pulse Rate 83 82 Respiratory Rate 20 20 Blood Pressure 153/86 H 126/72 Pulse Oximetry 94 L 96 94 L 02/19/18 20:00 Temperature 98.2 F Pulse Rate 60 Respiratory Rate 16 Blood Pressure 115/59 L Pulse Oximetry 96 Intake & Output 02/19/18 02/19/18 02/20/18 06:59 18:59 06:59 Intake Total 120 / 120 360 / 360 Output Total 300 / 300 Balance -180 / -180 360 / 360 Weight 83.2 kg Intake: Oral 120 / 120 360 / 360 Output: Urine 300 / 300 Other: # Voids 3 Date of Last Bowel Movement 02/17/18 02/19/18 # Bowel Movements 0 1 Narrative: GENERAL: Sitting in bed. Appears comfortable. SKIN: Warm and dry. HEAD: Normocephalic. EYES: No scleral icterus. No injection or drainage. NECK: Supple, trachea midline. No JVD. CARDIOVASCULAR: Regular rate and rhythm without murmurs, gallops, or rubs. RESPIRATORY: Breath sounds equal bilaterally. No accessory muscle use. GASTROINTESTINAL: Abdomen soft, non-tender, nondistended. MUSCULOSKELETAL: No cyanosis, or edema. BACK: Nontender without obvious deformity. No CVA tenderness. - Urinary Catheter Management Indwelling Temp Sensing Catheter Cath placed during this visit: no Urethral indwelling: Yes Reason for continuing: Hourly intake/output Results 02/14/18 07:59 02/15/18 08:38 Intake and Output 02/19/18 02/19/18 02/20/18 14:59 22:59 06:59 Intake Total 360 / 360 Balance 360 / 360 Intake: Oral 360 / 360 Other: # Voids 3 Date of Last Bowel Movement 02/19/18 # Bowel Movements 1 Assessment and Plan - Assessment (1) Frail elderly Code(s): R54 - Age-related physical debility Status: Acute (2) Acute myocardial infarction Code(s): I21.9 - Acute myocardial infarction, unspecified Status: Acute (3) Febrile illness Code(s): R50.9 - Fever, unspecified Status: Acute (4) Acute kidney injury Code(s): N17.9 - Acute kidney failure, unspecified Status: Acute (5) Atrial fibrillation Code(s): I48.91 - Unspecified atrial fibrillation Status: Acute (6) Cardiogenic shock Code(s): R57.0 - Cardiogenic shock Status: Acute (7) Acute hypoxemic respiratory failure Code(s): J96.01 - Acute respiratory failure with hypoxia Status: Acute (8) Pulmonary edema cardiac cause Code(s): I50.1 - Left ventricular failure, unspecified Status: Acute (9) Acute myocardial infarction Code(s): I21.9 - Acute myocardial infarction, unspecified Status: Acute - Plan 1) Acute myocardial infarction anteriorly 2) Cardiogenic shock 3) NSVT 4) LOLIS 5) AFib 1) Con't ASA/Plavix/Statin 2) BB/RHETT-I/Spironolactone for heart failure EF 30% 3) Still with concern for gait instability and getting out of bed without assistance Continuing PT Discussed with granddaughter Treva, health surrogate, came to the conclusion that there is still a concern for falls, gate instability and getting out of bed without assist Will plan on holding off on anticoagulation at this time Will plan to reevaluate after rehab to see if stronger, more oriented and less gate instability 4) No further cardiovascular issues at this time, waiting to see about rehab possibly [facility]
[2018-02-20] MEDS: Heparin - SQ 10,000 UNITS/ML Vial SQ SCH ×3 (04:59→21:14)
[2018-02-20 07:05] LABS: Baso # (Auto) 0.1 th/mm3 (0.0-0.2); Baso % (Auto) 1.2 % (0.0-2.0); Eos # (Auto) 0.2 th/mm3 (0.0-0.4); Eos % (Auto) 3.5 % (0.0-4.0); Hematocrit 30.7 % (35.0-46.0); Lymph % (Auto) 21.6 % (9.0-44.0); Mean Corpuscular HGB Conc 32.5 % (32.0-36.0); Mean Corpuscular Hemoglobin 29.1 pg (27.0-34.0); Mean Corpuscular Volume 89.7 fL (80.0-100.0); Mean Platelet Volume 9.8 fL (7.0-11.0); Mono # (Auto) 0.4 th/mm3 (0.0-0.9); Mono % (Auto) 8.9 % (0.0-8.0); Neut # (Auto) 3.1 th/mm3 (1.8-7.7); Neut % (Auto) 64.8 % (16.0-70.0); Platelet Count 165 th/mm3 (150-450); Red Blood Count 3.42 mil/mm3 (4.00-5.30); Red Cell Distribution Width 17.1 % (11.6-17.2); White Blood Count 4.7 th/mm3 (4.0-11.0)
[2018-02-20 07:27] LABS: Albumin 2.6 g/dL (3.4-5.0); Calcium 8.2 mg/dL (8.5-10.1); Carbon Dioxide 26.2 meq/L (21.0-32.0); Magnesium 1.7 mg/dL (1.5-2.5); Potassium 4.1 meq/L (3.5-5.1)
[2018-02-20] MEDS: Insulin NovoLOG Aspart Correctional Sugar Inj SQ SCH ×4 (09:08→21:13)
[2018-02-20] MEDS: Chlorhexidine 0.12% Oral Kit 15 ML UDC OROPHARYNG SCH ×2 (09:08→21:14)
[2018-02-20] MEDS: Spironolactone 25 MG Tablet PO SCH ×2 (09:09→18:09)
[2018-02-20] MEDS: Famotidine PF Inj 20 MG/2 ML Vial IV.PUSH SCH ×2 (09:10→21:12)
[2018-02-20] MEDS: Metoprolol Tartrate 25 MG Tablet PO SCH ×2 (09:10→21:12)
[2018-02-20] MEDS: ALPRAZolam 0.5 MG Tablet PO PRN (15:09)
--- NOTE | 2018-02-20 17:33 | P.PNIM ---
Subjective Interval history: She says she is feeling right. Denies any chest pain shortness of breath. Denies nausea or vomiting. Nursing reports that patient reporting some dysuria. Patient does endorse some dysuria but says it is better. Physical Exam Vital signs: Vital Signs 02/19/18 17:44 02/19/18 20:00 02/20/18 04:00 Temperature 98.2 F 97.3 F L Pulse Rate 60 80 Respiratory Rate 16 20 Blood Pressure 115/59 L 121/58 L Pulse Oximetry 94 L 96 98 02/20/18 08:00 02/20/18 09:01 02/20/18 12:00 Temperature 97.7 F 97.3 F L Pulse Rate 94 H 84 Respiratory Rate 18 18 Blood Pressure 148/64 H 148/66 H Pulse Oximetry 97 97 97 02/20/18 17:06 Temperature Pulse Rate Respiratory Rate Blood Pressure Pulse Oximetry 97 Intake & Output 02/19/18 02/20/18 02/20/18 18:59 06:59 18:59 Intake Total 360 / 360 0 / 0 Output Total 200 / 200 Balance 360 / 360 -200 / -200 Intake: Oral 360 / 360 0 / 0 Output: Urine 200 / 200 Other: # Voids 3 Date of Last Bowel Movement 02/19/18 02/19/18 02/20/18 # Bowel Movements 1 1 Narrative: GENERAL: Sitting up in chair.. Appears comfortable. SKIN: Warm and dry. HEAD: Normocephalic. EYES: No scleral icterus. No injection or drainage. NECK: Supple, trachea midline. No JVD. CARDIOVASCULAR: Regular rate and rhythm without murmurs, gallops, or rubs. RESPIRATORY: Breath sounds equal bilaterally. No accessory muscle use. GASTROINTESTINAL: Abdomen soft, non-tender, nondistended. MUSCULOSKELETAL: No cyanosis, or edema. BACK: Nontender without obvious deformity. No CVA tenderness. - Urinary Catheter Management Indwelling Temp Sensing Catheter Cath placed during this visit: no Urethral indwelling: Yes Reason for continuing: Hourly intake/output Results - Labs CBC & Chem 7: 02/20/18 06:08 02/20/18 06:08 Laboratory Results - last 24 hr 02/20/18 02/20/18 02/20/18 06:08 06:08 07:18 WBC 4.7 RBC 3.42 L Hgb 10.0 L Hct 30.7 L MCV 89.7 MCH 29.1 MCHC 32.5 RDW 17.1 Plt Count 165 D MPV 9.8 Neut % (Auto) 64.8 Lymph % (Auto) 21.6 [place] % (Auto) 8.9 H Eos % (Auto) 3.5 Baso % (Auto) 1.2 Neut # (Auto) 3.1 Lymph # (Auto) 1.0 [place] # (Auto) 0.4 Eos # (Auto) 0.2 Baso # (Auto) 0.1 WBC Differential . Differential Comment Auto diff final Sodium 147 H Potassium 4.1 Chloride 112 H Carbon Dioxide 26.2 Anion Gap 9 BUN 16 Creatinine 1.19 H Estimated GFR 43 L POC Glucose 197 H Random Glucose 153 H Calcium 8.2 L Phosphorus 3.0 Magnesium 1.7 Albumin 2.6 L 02/20/18 02/20/18 11:32 17:16 WBC RBC Hgb Hct MCV MCH MCHC RDW Plt Count MPV Neut % (Auto) Lymph % (Auto) [place] % (Auto) Eos % (Auto) Baso % (Auto) Neut # (Auto) Lymph # (Auto) [place] # (Auto) Eos # (Auto) Baso # (Auto) WBC Differential Differential Comment Sodium Potassium Chloride Carbon Dioxide Anion Gap BUN Creatinine Estimated GFR POC Glucose 213 H 235 H Random Glucose Calcium Phosphorus Magnesium Albumin - Procedures No invasive procedures. Assessment and Plan - Plan //Acute hypoxemic respiratory failure-resolved -Maintain oxygen saturation above 92%. -DuoNeb as needed. //Acute myocardial infarction -Continue antiplatelet therapy (ASA, Plavix) and statin. -Status post PCI with LAD stent (LUZMARIA) 02/03/[address] Peralta -Aldactone 50 mg twice daily -Continue management per cardiology. Stable for discharge. //Ischemic cardiomyopathy -Continue beta-blockers metoprolol 50 mg p.o. 2 times daily, enalapril 10 mg twice daily -Repeat echo February 06, 2018 with EF of 30% = Continue medications as per cardiology. //Atrial fibrillation -Currently rate controlled -Continue metoprolol 50mg BID -Currently on DAPT and subcu heparin, if A. fib persists may need full anticoagulation -Cardiology to discuss with family for possible starting of oral anticoagulation = Holding off on anticoagulation for now due to fall risk. Follow with cardiology as outpatient. Continue current medication regimen. //Acute kidney injury Improved. -Avoid nephrotoxins -Nephrology signed off. -follow BMP as needed. //Dysuria. Report on 02/20. Will check urinalysis. //Diabetes mellitus, poorly controlled -Currently on Medium correction sliding scale insulin protocol -Increase Levemir to 15 units HS and adjust as needed. = Relatively well controlled on insulin regimen. Continue. // UTI , ESBL + organism -Currently on ertapenem and monitor culture report -Completed ertapenem 02/18. PPx: Heparin Discharge Planning: Completed antibiotics. PT recommends rehab versus PRISON. Appreciate case management assistance. = To rehab when arrangements made. Currently pending authorization. Appreciate case management assistance.
[2018-02-20 18:03] LABS: Amorphous Sediment,Urine Rare /hpf; Bacteria,Urine Moderate /hpf; Bilirubin,Urine Negative (Negative); Clarity,Urine Cloudy (Clear); Color,Urine Yellow (Yellw/Straw); Glucose,Urine (UA) Negative (Negative); Hyaline Casts,Urine 3 /lpf (0-3); Leukocyte Esterase,Urine Moderate (Negative); Mucus,Urine Few /lpf (Occasional); Nitrite,Urine Negative (Negative); Specific Gravity,Urine 1.011 (1.002-1.035); Squamous Epithelial Cell,Urine 4 /hpf (0-5)
[2018-02-20] MEDS: QUEtiapine 25 MG Tablet PO SCH (21:12)
[2018-02-20] MEDS: Insulin Detemir Inj 1,000 UNIT/10 ML Vial SQ SCH (21:13)
--- NOTE | 2018-02-21 00:20 | P.PNCA ---
Subjective Interval history: No events overnight Feels well Medications and Allergies Active Medications: Active Medications Acetaminophen (Tylenol) 500 mg PO Q4H PRN PRN Reason: FEVER > 100.4 F Last Admin: 02/03/18 22:56 Dose: 500 mg Al Hydroxide/Mg Hydroxide (Milk Of Nita Liq) 30 ml PO Q12H PRN PRN Reason: Mild Constipation Albuterol (Duoneb Neb (Prn)) 1 ampul NEB Q2HR NEB PRN PRN Reason: SHORTNESS OF BREATH Alprazolam (Xanax) 0.5 mg PO Q8H PRN PRN Reason: ANXIETY Last Admin: 02/20/18 15:09 Dose: 0.5 mg Aspirin (Aspirin Chew) 81 mg PO DAILY [facility] Last Admin: 02/20/18 09:10 Dose: 81 mg Atorvastatin Calcium (Lipitor) 40 mg PO HS [facility] Last Admin: 02/20/18 21:12 Dose: 40 mg Bisacodyl (Dulcolax Supp) 10 mg RECTAL DAILY PRN PRN Reason: SEVERE CONSITIPATION Chlorhexidine Gluconate (Peridex 0.12% Oral Kit) 15 ml OROPHARYNG BID@0800, 2000 [facility] Last Admin: 02/20/18 21:14 Dose: Not Given Clopidogrel Bisulfate (Plavix) 75 mg PO DAILY [facility] Last Admin: 02/20/18 09:09 Dose: 75 mg Dextrose (D50w Vial) 50 ml IV.PUSH UNSCH PRN PRN Reason: PER HYPOGLYCEMIA PROTOCOL Enalapril Maleate (Vasotec) 10 mg PO BID [facility] Last Admin: 02/20/18 21:12 Dose: 10 mg Famotidine (Pepcid Pf Inj) 10 mg IV.PUSH Q12HR [facility] Last Admin: 02/20/18 21:12 Dose: 10 mg Glucagon (Glucagon Inj) 1 mg OTHER PRN PRN PRN Reason: for Hypoglycemia Protocol Heparin Sodium (Porcine) (Heparin Inj) 5,000 units SQ Q8HR [facility] Last Admin: 02/20/18 21:14 Dose: 5,000 units Insulin Aspart (Novolog Insulin Correctional Sugar Inj) 0 unit SQ [facility]; Protocol Last Admin: 02/20/18 21:13 Dose: 3 unit Insulin Detemir (Levemir Inj) 15 unit SQ [facility] Last Admin: 02/20/18 21:13 Dose: 15 unit Lactulose (Lactulose Liq) 30 ml PO DAILY PRN PRN Reason: SEVERE CONSITIPATION Metoprolol Tartrate (Lopressor) 50 mg PO BID [facility] Last Admin: 02/20/18 21:12 Dose: 50 mg Miscellaneous (Pill Splitter) 1 each OTHER UNSCH PRN PRN Reason: SEE LABEL COMMENTS Quetiapine Fumarate (Seroquel) 25 mg PO [facility] Last Admin: 02/20/18 21:12 Dose: 25 mg Sennosides (Senokot) 17.2 mg PO Q12H PRN PRN Reason: Moderate Constipation Sodium Chloride (Ns Flush) 2 ml IV.FLUSH BID [facility] Last Admin: 02/20/18 21:14 Dose: 2 ml Sodium Chloride (Ns Flush) 2 ml IV.FLUSH UNSCH PRN PRN Reason: FLUSH AFTER USING IV ACCESS Spironolactone (Aldactone) 50 mg PO BID@0900,1800 [facility] Last Admin: 02/20/18 18:09 Dose: Not Given Tramadol HCl (Ultram) 50 mg PO Q6H PRN PRN Reason: Pain 1-10 Last Admin: 02/20/18 18:09 Dose: 50 mg Allergies Allergy/AdvReac Type Severity Reaction Status Date / Time penicillin G Allergy Severe UNKNOWN Verified 01/31/18 02:06 Sulfa (Sulfonamide Allergy Severe UNKNOWN Verified 01/31/18 02:06 Antibiotics) ciprofloxacin AdvReac unknown Verified 02/03/18 11:14 Home Medications Medication Instructions Recorded Confirmed Type tramadol 50 mg PO Q6H PRN 01/31/18 01/31/18 History Physical Exam Vital signs: Vital Signs 02/20/18 04:00 02/20/18 08:00 02/20/18 09:01 Temperature 97.3 F L 97.7 F Pulse Rate 80 94 H Respiratory Rate 20 18 Blood Pressure 121/58 L 148/64 H Pulse Oximetry 98 97 97 02/20/18 12:00 02/20/18 16:00 02/20/18 17:06 Temperature 97.3 F L 98.4 F Pulse Rate 84 57 L Respiratory Rate 18 20 Blood Pressure 148/66 H 105/61 Pulse Oximetry 97 96 97 02/20/18 18:10 02/20/18 20:00 Temperature 97.6 F Pulse Rate 91 H 94 H Respiratory Rate 16 Blood Pressure 116/60 113/56 L Pulse Oximetry 95 Intake & Output 02/20/18 02/20/18 02/21/18 06:59 18:59 06:59 Intake Total 0 / 0 840 / 840 Output Total 200 / 200 600 / 600 Balance -200 / -200 240 / 240 Intake: Oral 0 / 0 840 / 840 Output: Urine 200 / 200 600 / 600 Other: Date of Last Bowel Movement 02/19/18 02/20/18 02/20/18 # Bowel Movements 1 1 Narrative: GENERAL: Sitting up in chair.. Appears comfortable. SKIN: Warm and dry. HEAD: Normocephalic. EYES: No scleral icterus. No injection or drainage. NECK: Supple, trachea midline. No JVD. CARDIOVASCULAR: Regular rate and rhythm without murmurs, gallops, or rubs. RESPIRATORY: Breath sounds equal bilaterally. No accessory muscle use. GASTROINTESTINAL: Abdomen soft, non-tender, nondistended. MUSCULOSKELETAL: No cyanosis, or edema. BACK: Nontender without obvious deformity. No CVA tenderness. - Urinary Catheter Management Indwelling Temp Sensing Catheter Cath placed during this visit: no Urethral indwelling: Yes Reason for continuing: Hourly intake/output Results 02/20/18 06:08 02/20/18 06:08 CBC 02/20/18 Range/Units 06:08 WBC 4.7 (4.0-11.0) th/mm3 RBC 3.42 L (4.00-5.30) mil/mm3 Hgb 10.0 L (11.6-15.3) gm/dL Hct 30.7 L (35.0-46.0) % Plt Count 165 D (150-450) th/mm3 Neut # (Auto) 3.1 (1.8-7.7) th/mm3 Lymph # (Auto) 1.0 (1.0-4.8) th/mm3 [place] # (Auto) 0.4 (0.0-0.9) th/mm3 Eos # (Auto) 0.2 (0.0-0.4) th/mm3 Baso # (Auto) 0.1 (0.0-0.2) th/mm3 Comprehensive Metabolic Panel 02/20/18 Range/Units 06:08 Sodium 147 H (136-145) meq/L Potassium 4.1 (3.5-5.1) meq/L Chloride 112 H (98-107) meq/L Carbon Dioxide 26.2 (21.0-32.0) meq/L BUN 16 (7-18) mg/dL Creatinine 1.19 H (0.50-1.00) mg/dL Calcium 8.2 L (8.5-10.1) mg/dL Albumin 2.6 L (3.4-5.0) g/dL Intake and Output 02/20/18 02/20/18 02/21/18 14:59 22:59 06:59 Intake Total 840 / 840 Output Total 600 / 600 Balance 240 / 240 Intake: Oral 840 / 840 Output: Urine 600 / 600 Other: Date of Last Bowel Movement 02/20/18 02/20/18 # Bowel Movements 1 Assessment and Plan - Assessment (1) Frail elderly Code(s): R54 - Age-related physical debility Status: Acute (2) Acute myocardial infarction Code(s): I21.9 - Acute myocardial infarction, unspecified Status: Acute (3) Febrile illness Code(s): R50.9 - Fever, unspecified Status: Acute (4) Acute kidney injury Code(s): N17.9 - Acute kidney failure, unspecified Status: Acute (5) Atrial fibrillation Code(s): I48.91 - Unspecified atrial fibrillation Status: Acute (6) Cardiogenic shock Code(s): R57.0 - Cardiogenic shock Status: Acute (7) Acute hypoxemic respiratory failure Code(s): J96.01 - Acute respiratory failure with hypoxia Status: Acute (8) Pulmonary edema cardiac cause Code(s): I50.1 - Left ventricular failure, unspecified Status: Acute (9) Acute myocardial infarction Code(s): I21.9 - Acute myocardial infarction, unspecified Status: Acute - Plan 1) Acute myocardial infarction anteriorly 2) Cardiogenic shock 3) NSVT 4) LOLIS 5) AFib 1) Con't ASA/Plavix/Statin 2) BB/RHETT-I/Spironolactone for heart failure EF 30% 3) Still with concern for gait instability and getting out of bed without assistance Continuing PT Discussed with granddaughter Treva, health surrogate, came to the conclusion that there is still a concern for falls, gate instability and getting out of bed without assist Will plan on holding off on anticoagulation at this time Will plan to reevaluate after rehab to see if stronger, more oriented and less gate instability 4) No further cardiovascular issues at this time, waiting to see about rehab possibly [facility] 5) If concerns over the holiday weekend, please call the service for covering physician
[2018-02-21] MEDS: ALPRAZolam 0.5 MG Tablet PO PRN ×2 (03:47→12:56)
[2018-02-21] MEDS: Heparin - SQ 10,000 UNITS/ML Vial SQ SCH ×3 (05:14→21:02)
[2018-02-21 05:49] LABS: Albumin 2.7 g/dL (3.4-5.0); Calcium 8.2 mg/dL (8.5-10.1); Phosphorus 3.2 mg/dL (2.5-4.9)
[2018-02-21] MEDS: Chlorhexidine 0.12% Oral Kit 15 ML UDC OROPHARYNG SCH ×2 (08:38→20:58)
[2018-02-21] MEDS: Famotidine PF Inj 20 MG/2 ML Vial IV.PUSH SCH ×2 (08:40→21:02)
[2018-02-21] MEDS: Metoprolol Tartrate 25 MG Tablet PO SCH ×2 (08:40→20:59)
[2018-02-21] MEDS: Insulin NovoLOG Aspart Correctional Sugar Inj SQ SCH ×4 (08:41→20:58)
[2018-02-21] MEDS: Spironolactone 25 MG Tablet PO SCH ×2 (08:47→17:08)
[2018-02-21] MEDS: Insulin Detemir Inj 1,000 UNIT/10 ML Vial SQ SCH ×2 (08:50→20:59)
--- NOTE | 2018-02-21 15:58 | P.PNIM ---
Subjective Interval history: 87 yo female with T2DM admitted for NSTEMI and also developed UTI due to ESBL organism now being seen for follow up. Today feels well, no CP/SOB overnight. Still deconditioned with mild-moderate NÚÑZE. Physical Exam Vital signs: Vital Signs 02/20/18 16:00 02/20/18 17:06 02/20/18 18:10 Temperature 98.4 F Pulse Rate 57 L 91 H Respiratory Rate 20 Blood Pressure 105/61 116/60 Pulse Oximetry 96 97 02/20/18 20:00 02/21/18 00:00 02/21/18 04:00 Temperature 97.6 F 98 F 97.7 F Pulse Rate 94 H 79 70 Respiratory Rate 16 16 16 Blood Pressure 113/56 L 108/54 L 139/67 Pulse Oximetry 95 95 96 02/21/18 08:00 02/21/18 10:39 02/21/18 12:00 Temperature 98.1 F 97.6 F Pulse Rate 76 64 Respiratory Rate 18 18 Blood Pressure 117/60 122/56 L Pulse Oximetry 97 99 93 L Intake & Output 02/20/18 02/21/18 02/21/18 18:59 06:59 18:59 Intake Total 840 / 840 60 / 60 Output Total 600 / 600 100 / 100 Balance 240 / 240 -40 / -40 Intake: Oral 840 / 840 60 / 60 Output: Urine 600 / 600 100 / 100 Other: Date of Last Bowel Movement 02/20/18 02/20/18 # Bowel Movements 1 0 - Constitutional no acute distress, average body habitus - Routine HEENT Exam Head: Present: normocephalic, atraumatic ENT: Present: mucous membranes moist - Routine Respiratory Exam Present: CTA bilaterally. Absent: accessory muscle use, wheezes, crackles - Routine Cardiovascular Exam Present: RRR, S1, S2. Absent: murmur - Routine Abdominal Exam Present: soft. Absent: tenderness, distended - Routine Extremities Exam Absent: cyanosis, edema - Routine Neurological Exam Present: alert, CN II-XII intact - Routine Psychiatric Exam Present: normal affect, normal thought process - Urinary Catheter Management Indwelling Temp Sensing Catheter Cath placed during this visit: no Urethral indwelling: Yes Reason for continuing: Hourly intake/output Results - Labs CBC & Chem 7: 02/20/18 06:08 02/21/18 04:40 Laboratory Results - last 24 hr 02/20/18 02/20/18 02/20/18 16:45 17:16 21:02 Sodium Potassium Chloride Carbon Dioxide Anion Gap BUN Creatinine Estimated GFR POC Glucose 235 H 221 H Random Glucose Calcium Phosphorus Albumin Urine Color Yellow Urine Clarity Cloudy H Urine pH 6.0 Ur Specific [place] 1.011 Urine Protein 30 H Urine Glucose (UA) Negative Urine Ketones Negative Urine Occult Blood Large H Urine Nitrate Negative Urine Bilirubin Negative Urine Urobilinogen Less than 2 Ur Leukocyte Esterase Moderate H Urine RBC 22 H Urine WBC 78 H Ur Squamous Epith Cells 4 Amorphous Sediment Rare H Urine Bacteria Moderate H Hyaline Casts 3 Urine Mucus Few H Urine Yeast Rare H Ur Microscopic Review Not Reportable 02/21/18 02/21/18 02/21/18 03:39 04:40 08:40 Sodium 144 Potassium 4.0 Chloride 111 H Carbon Dioxide 26.0 Anion Gap 7 BUN 19 H Creatinine 1.43 H Estimated GFR 35 L POC Glucose 150 H 133 H Random Glucose 128 H Calcium 8.2 L Phosphorus 3.2 Albumin 2.7 L Urine Color Urine Clarity Urine pH Ur Specific [place] Urine Protein Urine Glucose (UA) Urine Ketones Urine Occult Blood Urine Nitrate Urine Bilirubin Urine Urobilinogen Ur Leukocyte Esterase Urine RBC Urine WBC Ur Squamous Epith Cells Amorphous Sediment Urine Bacteria Hyaline Casts Urine Mucus Urine Yeast Ur Microscopic Review 02/21/18 11:41 Sodium Potassium Chloride Carbon Dioxide Anion Gap BUN Creatinine Estimated GFR POC Glucose 183 H Random Glucose Calcium Phosphorus Albumin Urine Color Urine Clarity Urine pH Ur Specific [place] Urine Protein Urine Glucose (UA) Urine Ketones Urine Occult Blood Urine Nitrate Urine Bilirubin Urine Urobilinogen Ur Leukocyte Esterase Urine RBC Urine WBC Ur Squamous Epith Cells Amorphous Sediment Urine Bacteria Hyaline Casts Urine Mucus Urine Yeast Ur Microscopic Review - Procedures No invasive procedures. Assessment and Plan - Assessment (1) Non-ST elevated myocardial infarction (non-STEMI) Code(s): I21.4 - Non-ST elevation (NSTEMI) myocardial infarction Status: Acute (2) Acute kidney injury Code(s): N17.9 - Acute kidney failure, unspecified Status: Resolved (3) Type 2 diabetes mellitus Code(s): E11.9 - Type 2 diabetes mellitus without complications Status: Chronic (4) Frail elderly Code(s): R54 - Age-related physical debility Status: Acute (5) UTI (urinary tract infection) Code(s): N39.0 - Urinary tract infection, site not specified Status: Resolved - Plan 87 yo female with prior heart attack, AFib, DM presents with: //Acute myocardial infarction -Continue antiplatelet therapy (ASA, Plavix) and statin. -Status post PCI with LAD stent (LUZMARIA) 02/03/[address] Peralta -Con't ASA/Plavix/Statin -BB/RHETT-I/Spironolactone for heart failure -Continue management per cardiology, recs appreciated. Stable for discharge. //Ischemic cardiomyopathy -Continue beta-blockers metoprolol 50 mg p.o. 2 times daily, enalapril 10 mg twice daily -Repeat echo February 06, 2018 with EF of 30% -Continue medications as per cardiology //Atrial fibrillation -Currently rate controlled -Continue metoprolol 50mg BID -Currently on DAPT and subcu heparin, if A. fib persists may need full anticoagulation -Cardiology to discuss with family for possible starting of oral anticoagulation -Holding off on anticoagulation for now due to fall risk. Follow with cardiology as outpatient. Continue current medication regimen. //Acute kidney injury Improved. -Avoid nephrotoxins -Nephrology signed off. -follow BMP as needed. //Dysuria. Report on 02/20. Will check urinalysis. //Diabetes mellitus, poorly controlled -Currently on Medium correction sliding scale insulin protocol -Change Levemir to 8 units BID and adjust as needed (works better as BID insulin ). // UTI , ESBL + organism -Currently on ertapenem and monitor culture report -Completed ertapenem 02/18; discontinue midline catheter PPx: Heparin Discharge Planning: To rehab when arrangements made. Currently pending authorization. Appreciate case management assistance. (5) UTI (urinary tract infection) Qualifiers: Urinary tract infection type: site unspecified Hematuria presence: without hematuria Qualified Code(s): N39.0 - Urinary tract infection, site not specified
[2018-02-21] MEDS: QUEtiapine 25 MG Tablet PO SCH (20:58)
[2018-02-22] MEDS: Heparin - SQ 10,000 UNITS/ML Vial SQ SCH ×3 (05:50→21:41)
[2018-02-22 08:57] LABS: Calcium 8.7 mg/dL (8.5-10.1); Carbon Dioxide 26.7 meq/L (21.0-32.0); Potassium 4.5 meq/L (3.5-5.1)
--- NOTE | 2018-02-22 09:10 | P.PN ---
Subjective Interval history: This is a pleasant 87 y/o Female with DM II admitted for NSTEMI and also developed UTI due to ESBL organism. 02/22: Seen in her bedroom discussed with Mahin and nurse Miss Garcia, she was already discharged to Rehab declined by [facility], continue inpatient management until placement found. Physical Exam Vital signs: Vital Signs 02/21/18 10:39 02/21/18 12:00 02/21/18 16:00 Temperature 97.6 F 98.1 F Pulse Rate 64 78 Respiratory Rate 18 20 Blood Pressure 122/56 L 148/65 H Pulse Oximetry 99 93 L 96 02/21/18 20:00 02/22/18 00:00 02/22/18 00:28 Temperature 98.2 F 98.8 F Pulse Rate 83 68 Respiratory Rate 17 16 Blood Pressure 110/53 L 87/52 L 95/72 L Pulse Oximetry 96 98 02/22/18 04:00 02/22/18 08:00 Temperature 98.7 F 98.0 F Pulse Rate 76 83 Respiratory Rate 17 20 Blood Pressure 100/52 L 117/55 L Pulse Oximetry 95 98 Intake & Output 02/21/18 02/22/18 02/22/18 18:59 06:59 18:59 Intake Total 480 / 480 300 / 300 Balance 480 / 480 300 / 300 Weight 82.1 kg Intake: Oral 480 / 480 300 / 300 Other: # Voids 3 4 Date of Last Bowel Movement 02/20/18 # Bowel Movements 0 Narrative: GENERAL: This is a well-nourished, well-developed patient, in no apparent distress. CARDIOVASCULAR: Regular rate and rhythm without murmurs, gallops, or rubs. RESPIRATORY: Clear to auscultation. Breath sounds equal bilaterally. No wheezes , rales, or rhonchi. GASTROINTESTINAL: Abdomen soft, non-tender, nondistended. Normal active bowel sounds MUSCULOSKELETAL: Extremities without clubbing, cyanosis, or edema. NEURO: Alert & Oriented x4 to person, place, time, situation. Moves all ext x4 - Urinary Catheter Management Indwelling Temp Sensing Catheter Cath placed during this visit: no Urethral indwelling: Yes Reason for continuing: Hourly intake/output Results - Labs CBC & Chem 7: 02/20/18 06:08 02/22/18 05:57 Laboratory Results - last 24 hr 1102/21/18 02/21/18 11:41 17:08 19:43 Sodium Potassium Chloride Carbon Dioxide Anion Gap BUN Creatinine Estimated GFR POC Glucose 183 H 87 203 H Random Glucose Calcium 02/22/18 02/22/18 05:57 07:41 Sodium 145 Potassium 4.5 Chloride 109 H Carbon Dioxide 26.7 Anion Gap 9 BUN 24 H Creatinine 1.71 H Estimated GFR 28 L POC Glucose 127 H Random Glucose 108 H Calcium 8.7 - Imaging Abdomen/Bladder Ultrasound 02/02/18 00:00 CONCLUSION: 1. Increased renal echogenicity typical of chronic parenchymal changes. 2. No evidence of acute obstructive uropathy. 3. Small bilateral benign-appearing cysts. Abdomen/Pelvis CT 02/02/18 00:00 CONCLUSION: 1. No acute abnormalities are seen in the abdomen or pelvis. 2. Mildly atrophic left kidney with vascular calcifications. 3. Aortoiliac atherosclerosis. No aneurysm. 4. Cholelithiasis. 5. Bilateral small pleural effusions and mild to moderate basilar atelectasis. 6. Coronary artery calcification. 7. Nonspecific mass of the visualized left breast. Last mammogram in our system was 2012. Up-to-date bilateral mammography with a diagnostic left breast mammogram recommended. Chest X-Ray 02/06/18 06:00 CONCLUSION: Interval extubation. Stable aeration. Head MRI 02/10/18 10:53 CONCLUSION: 1. No acute findings. No recent infarct identified. - Procedures No invasive procedures. Assessment and Plan - Plan 87 yo female with prior heart attack, AFib, DM presents with: //Acute myocardial infarction -Continue antiplatelet therapy (ASA, Plavix) and statin. -Status post PCI with LAD stent ([facility]MARIA) 02/03/[address] Peralta -Con't ASA/Plavix/Statin -BB/RHETT-I/Spironolactone for heart failure -Continue management per cardiology, recs appreciated. Stable for discharge. //Ischemic cardiomyopathy -Continue beta-blockers metoprolol 50 mg p.o. 2 times daily, enalapril 10 mg twice daily -Repeat echo February 06, 2018 with EF of 30% -Continue medications as per cardiology //Atrial fibrillation -Currently rate controlled -Continue metoprolol 50mg BID -Currently on DAPT and subcu heparin, if A. fib persists may need full anticoagulation -Cardiology to discuss with family for possible starting of oral anticoagulation -Holding off on anticoagulation for now due to fall risk. Follow with cardiology as outpatient. Continue current medication regimen. //Acute kidney injury asked for new BMP and got the Potassium in 4.5 and Creatinine worsening in 1.71 will recommend to hold Spironolactone and RHETT inhibitor at this time and follow not yet discharged. //Dysuria. Report on 02/20. Will check urinalysis. //Diabetes mellitus, poorly controlled -Currently on Medium correction sliding scale insulin protocol -Change Levemir to 8 units BID and adjust as needed (works better as BID insulin ). // UTI , ESBL + organism -Currently on ertapenem and monitor culture report -Completed ertapenem 02/18; discontinue midline catheter PPx: Heparin No changes to anterior assessment Code Status: Full code. Discussed Condition With: Patient, Sitter and Nurse Miss Garcia Discharge Planning: To rehab when arrangements made. Currently pending authorization. Appreciate case management assistance.
[2018-02-22] MEDS: Metoprolol Tartrate 25 MG Tablet PO SCH ×2 (09:38→20:28)
[2018-02-22] MEDS: Chlorhexidine 0.12% Oral Kit 15 ML UDC OROPHARYNG SCH ×2 (09:39→20:29)
[2018-02-22] MEDS: Famotidine PF Inj 20 MG/2 ML Vial IV.PUSH SCH ×2 (09:39→20:28)
[2018-02-22] MEDS: Insulin NovoLOG Aspart Correctional Sugar Inj SQ SCH ×4 (09:39→20:29)
[2018-02-22] MEDS: Insulin Detemir Inj 1,000 UNIT/10 ML Vial SQ SCH ×2 (09:40→20:29)
[2018-02-22] MEDS: Spironolactone 25 MG Tablet PO SCH ×2 (09:41→17:30)
--- NOTE | 2018-02-22 17:10 | P.PNPAL ---
Reason for Visit Reason for visit: a. To assist with evaluation and management of symptoms including: Weakness, confusion, anxiety b. To assist medical decision maker(s) with: better understanding of current medical conditions; weighing benefits/burdens of medical treatment options; making medical treatment decisions. Subjective Subjective/Interval History: This is an 87-year-old female with a past medical history of diabetes, hypertension, rectal cancer in remission, anxiety, depression, coronary artery disease status post stent, former smoker who presented to the emergency department 01/31/2018 plane of chest pain, substernal, pressure, nonradiating, persistent, which resolved with aspirin and sublingual nitro given to her by EMS. She had taken a Xanax earlier to try and help her sleep. Her presenting troponin was 1.25 did she had been seen in the ED on 01/28 and had troponin levels of 0.11, 0.96, 1.08. She was diagnosed with a non-STEMI and seen by cardiology. Cardiac catheterization was held secondary to renal insufficiency. Nephrology consultation was requested for further evaluation. Patient seen for follow-up of symptom management for weakness, confusion and anxiety and to assist family in goals of medical treatment. Patient less confused and remains out of restraints. She is participating with PT, OT. Physical therapy notes indicate that she requires constant cues to maintain close proximity to the walker, fatigues easily and requires standing rest breaks. She was able to ambulate 70 feet with a rolling walker with standby assistance maintaining fair balance. She shows impulsivity and poor safety awareness. She is demanding to be allowed to go home to pick out her own clothes so she can go to rehab. Her grasp of her medical situation and the logistics involved is poor. We discussed having her friend, Jihan, whom she had given a martinez to her home, sheepskin pickler clothes and she became anxious and agitated , demanding to speak to the physician so she could tell him that he had to send her home to get her clothes. She is seen in the room with a sitter, as the patient continues to get out of bed without assistance, ambulate out into the hallway without assistance and is a high risk for falls. It is not felt that she will be able to live alone. She has poor memory recall of safety instructions and indeed has difficulty remembering what was said within the last few minutes. [facility]. She has been declined by [facility] as too high functioning and declined by [facility] due to them undergoing renovations. . Family/Friend Interactions: Contacted her granddaughter, Treva, by telephone so the patient could speak with her. Gave Treva update as to current situation and clinical status. Family encouraged her to be compliant with rules, go to rehabilitation so that they could get her back to her home, however plan to have a full-time caregiver at her home with the eventual goal of moving her to an [facility], where they feel she would do better in a more social situation. . Advance Directives Living Will: Copy in medical record Health Care Surrogate: Copy in medical record Health Care Surrogate Name and Number: Treva Arvizu Objective Vital Signs: Vital Signs 02/21/18 20:00 02/22/18 00:00 02/22/18 00:28 Temperature 98.2 F 98.8 F Pulse Rate 83 68 Respiratory Rate 17 16 Blood Pressure 110/53 L 87/52 L 95/72 L Pulse Oximetry 96 98 02/22/18 04:00 02/22/18 08:00 02/22/18 12:00 Temperature 98.7 F 98.0 F 98.0 F Pulse Rate 76 83 60 Respiratory Rate 17 20 20 Blood Pressure 100/52 L 117/55 L 121/81 Pulse Oximetry 95 98 96 02/22/18 16:00 Temperature 97.8 F Pulse Rate 73 Respiratory Rate 20 Blood Pressure 137/60 Pulse Oximetry 98 Intake & Output 02/21/18 02/22/18 02/22/18 18:59 06:59 18:59 Intake Total 480 / 480 300 / 300 Balance 480 / 480 300 / 300 Weight 180 lb 15.992 oz Intake: Oral 480 / 480 300 / 300 Other: # Voids 3 4 Date of Last Bowel Movement 02/20/18 # Bowel Movements 0 Physical Exam: CONSTITUTIONAL/GENERAL: This is an adequately nourished patient,upright in bed, awake, talkative, no distress. TUBES/LINES/DRAINS: PIV UE CARDIOVASCULAR: Irregular rhythm, controlled rate , no murmur. No JVD. Peripheral pulses symmetric. RESPIRATORY/CHEST: Symmetric, unlabored respirations. Clear to auscultation. Breath sounds equal bilaterally. No wheezes, rales, or rhonchi. GASTROINTESTINAL: Abdomen soft, non-tender, nondistended. No hepato-splenomegaly , or palpable masses. No guarding. Bowel sounds present. GENITOURINARY: Without palpable bladder distension. verbalizes need to void during my visit MUSCULOSKELETAL: Extremities without clubbing, cyanosis, or edema. No joint tenderness or effusion noted. No calf tenderness. No mottling or clubbing. NEUROLOGICAL: Alert, oriented to self , family, hospital. no focal deficits. follows commands. limited insight. Moves all extremities. PSYCHIATRIC: Anxious and agitated today. . Diagnostic Tests Laboratory: Laboratory Results - last 72 hr 02/19/18 02/20/18 02/20/18 17:14 06:08 06:08 WBC 4.7 RBC 3.42 L Hgb 10.0 L Hct 30.7 L MCV 89.7 MCH 29.1 MCHC 32.5 RDW 17.1 Plt Count 165 D MPV 9.8 Neut % (Auto) 64.8 Lymph % (Auto) 21.6 Burke % (Auto) 8.9 H Eos % (Auto) 3.5 Baso % (Auto) 1.2 Neut # (Auto) 3.1 Lymph # (Auto) 1.0 Burke # (Auto) 0.4 Eos # (Auto) 0.2 Baso # (Auto) 0.1 WBC Differential . Differential Comment Auto diff final Sodium 147 H Potassium 4.1 Chloride 112 H Carbon Dioxide 26.2 Anion Gap 9 BUN 16 Creatinine 1.19 H Estimated GFR 43 L POC Glucose 217 H Random Glucose 153 H Calcium 8.2 L Phosphorus 3.0 Magnesium 1.7 Albumin 2.6 L Urine Color Urine Clarity Urine pH Ur Specific [place] Urine Protein Urine Glucose (UA) Urine Ketones Urine Occult Blood Urine Nitrate Urine Bilirubin Urine Urobilinogen Ur Leukocyte Esterase Urine RBC Urine WBC Ur Squamous Epith Cells Amorphous Sediment Urine Bacteria Hyaline Casts Urine Mucus Urine Yeast Ur Microscopic Review 02/20/18 02/20/18 02/20/18 07:18 11:32 16:45 WBC RBC Hgb Hct MCV MCH MCHC RDW Plt Count MPV Neut % (Auto) Lymph % (Auto) Burke % (Auto) Eos % (Auto) Baso % (Auto) Neut # (Auto) Lymph # (Auto) Burke # (Auto) Eos # (Auto) Baso # (Auto) WBC Differential Differential Comment Sodium Potassium Chloride Carbon Dioxide Anion Gap BUN Creatinine Estimated GFR POC Glucose 197 H 213 H Random Glucose Calcium Phosphorus Magnesium Albumin Urine Color Yellow Urine Clarity Cloudy H Urine pH 6.0 Ur Specific [place] 1.011 Urine Protein 30 H Urine Glucose (UA) Negative Urine Ketones Negative Urine Occult Blood Large H Urine Nitrate Negative Urine Bilirubin Negative Urine Urobilinogen Less than 2 Ur Leukocyte Esterase Moderate H Urine RBC 22 H Urine WBC 78 H Ur Squamous Epith Cells 4 Amorphous Sediment Rare H Urine Bacteria Moderate H Hyaline Casts 3 Urine Mucus Few H Urine Yeast Rare H Ur Microscopic Review Not Reportable 02/20/18 02/20/18 02/21/18 17:16 21:02 03:39 WBC RBC Hgb Hct MCV MCH MCHC RDW Plt Count MPV Neut % (Auto) Lymph % (Auto) Burke % (Auto) Eos % (Auto) Baso % (Auto) Neut # (Auto) Lymph # (Auto) Burke # (Auto) Eos # (Auto) Baso # (Auto) WBC Differential Differential Comment Sodium Potassium Chloride Carbon Dioxide Anion Gap BUN Creatinine Estimated GFR POC Glucose 235 H 221 H 150 H Random Glucose Calcium Phosphorus Magnesium Albumin Urine Color Urine Clarity Urine pH Ur Specific [place] Urine Protein Urine Glucose (UA) Urine Ketones Urine Occult Blood Urine Nitrate Urine Bilirubin Urine Urobilinogen Ur Leukocyte Esterase Urine RBC Urine WBC Ur Squamous Epith Cells Amorphous Sediment Urine Bacteria Hyaline Casts Urine Mucus Urine Yeast Ur Microscopic Review 02/21/18 02/21/18 02/21/18 04:40 08:40 11:41 WBC RBC Hgb Hct MCV MCH MCHC RDW Plt Count MPV Neut % (Auto) Lymph % (Auto) Burke % (Auto) Eos % (Auto) Baso % (Auto) Neut # (Auto) Lymph # (Auto) Burke # (Auto) Eos # (Auto) Baso # (Auto) WBC Differential Differential Comment Sodium 144 Potassium 4.0 Chloride 111 H Carbon Dioxide 26.0 Anion Gap 7 BUN 19 H Creatinine 1.43 H Estimated GFR 35 L POC Glucose 133 H 183 H Random Glucose 128 H Calcium 8.2 L Phosphorus 3.2 Magnesium Albumin 2.7 L Urine Color Urine Clarity Urine pH Ur Specific [place] Urine Protein Urine Glucose (UA) Urine Ketones Urine Occult Blood Urine Nitrate Urine Bilirubin Urine Urobilinogen Ur Leukocyte Esterase Urine RBC Urine WBC Ur Squamous Epith Cells Amorphous Sediment Urine Bacteria Hyaline Casts Urine Mucus Urine Yeast Ur Microscopic Review 02/21/18 02/21/18 02/22/18 17:08 19:43 05:57 WBC RBC Hgb Hct MCV MCH MCHC RDW Plt Count MPV Neut % (Auto) Lymph % (Auto) Burke % (Auto) Eos % (Auto) Baso % (Auto) Neut # (Auto) Lymph # (Auto) Burke # (Auto) Eos # (Auto) Baso # (Auto) WBC Differential Differential Comment Sodium 145 Potassium 4.5 Chloride 109 H Carbon Dioxide 26.7 Anion Gap 9 BUN 24 H Creatinine 1.71 H Estimated GFR 28 L POC Glucose 87 203 H Random Glucose 108 H Calcium 8.7 Phosphorus Magnesium Albumin Urine Color Urine Clarity Urine pH Ur Specific [place] Urine Protein Urine Glucose (UA) Urine Ketones Urine Occult Blood Urine Nitrate Urine Bilirubin Urine Urobilinogen Ur Leukocyte Esterase Urine RBC Urine WBC Ur Squamous Epith Cells Amorphous Sediment Urine Bacteria Hyaline Casts Urine Mucus Urine Yeast Ur Microscopic Review 02/22/18 02/22/18 07:41 11:56 WBC RBC Hgb Hct MCV MCH MCHC RDW Plt Count MPV Neut % (Auto) Lymph % (Auto) Burke % (Auto) Eos % (Auto) Baso % (Auto) Neut # (Auto) Lymph # (Auto) Burke # (Auto) Eos # (Auto) Baso # (Auto) WBC Differential Differential Comment Sodium Potassium Chloride Carbon Dioxide Anion Gap BUN Creatinine Estimated GFR POC Glucose 127 H 234 H Random Glucose Calcium Phosphorus Magnesium Albumin Urine Color Urine Clarity Urine pH Ur Specific [place] Urine Protein Urine Glucose (UA) Urine Ketones Urine Occult Blood Urine Nitrate Urine Bilirubin Urine Urobilinogen Ur Leukocyte Esterase Urine RBC Urine WBC Ur Squamous Epith Cells Amorphous Sediment Urine Bacteria Hyaline Casts Urine Mucus Urine Yeast Ur Microscopic Review Result Diagrams: 02/20/18 06:08 02/22/18 05:57 Microbiology: Microbiology 02/03/18 02:37 Blood - Peripheral Aerobic Blood Culture - Final No growth in 5 days 02/03/18 02:37 Blood - Peripheral Anaerobic Blood Culture - Final No growth in 5 days 02/02/18 23:05 Blood - Peripheral Aerobic Blood Culture - Final No growth in 5 days 02/02/18 23:05 Blood - Peripheral Anaerobic Blood Culture - Final QNS - See aerobic report. 01/31/18 21:38 Blood - Peripheral Aerobic Blood Culture - Final No growth in 5 days 01/31/18 21:38 Blood - Peripheral Anaerobic Blood Culture - Final No growth in 5 days 01/31/18 21:43 Blood - Peripheral Aerobic Blood Culture - Final No growth in 5 days 01/31/18 21:43 Blood - Peripheral Anaerobic Blood Culture - Final No growth in 5 days 02/02/18 12:45 Sputum - Endotracheal Gram Stain - Final 02/02/18 12:45 Sputum - Endotracheal Sputum Culture - Final Moderate growth normal respiratory yue 02/02/18 09:00 Clean Catch Urine Urine Culture - Final Escherichia coli ESBL positive Multidrug Resistant 01/31/18 22:30 Nasal Wash Influenza Types A,B Antigen - Final Negative for FLU A and B antigen Infection due to influenza A or B cannot be ruled out since the antigen present in the sample may be below the detection limit of the test. Imaging: Chest X-Ray 01/31/18 02:15 CONCLUSION: No significant change mild left base atelectasis. Otherwise within normal limits. Abdomen/Bladder Ultrasound 02/02/18 00:00 CONCLUSION: 1. Increased renal echogenicity typical of chronic parenchymal changes. 2. No evidence of acute obstructive uropathy. 3. Small bilateral benign-appearing cysts. Abdomen/Pelvis CT 02/02/18 00:00 CONCLUSION: 1. No acute abnormalities are seen in the abdomen or pelvis. 2. Mildly atrophic left kidney with vascular calcifications. 3. Aortoiliac atherosclerosis. No aneurysm. 4. Cholelithiasis. 5. Bilateral small pleural effusions and mild to moderate basilar atelectasis. 6. Coronary artery calcification. 7. Nonspecific mass of the visualized left breast. Last mammogram in our system was 2012. Up-to-date bilateral mammography with a diagnostic left breast mammogram recommended. Chest X-Ray 02/02/18 00:00 CONCLUSION: Worsening aeration Chest X-Ray 02/02/18 00:00 CONCLUSION: 1. Endotracheal tube and nasogastric tube in place. 2. Slight increase in hazy opacity at the right lung base. Patchy opacity left lung base partially visualized. Chest X-Ray 02/03/18 00:00 CONCLUSION: Endotracheal tube tip is a bit deep Improving aeration Chest X-Ray 02/04/18 10:43 CONCLUSION: Minimal left basilar density and probable small pleural effusion. Chest X-Ray 02/05/18 08:20 CONCLUSION: No acute cardiopulmonary disease. Chest X-Ray 02/06/18 06:00 CONCLUSION: Interval extubation. Stable aeration. Head MRI 02/10/18 10:53 CONCLUSION: 1. No acute findings. No recent infarct identified. Procedures: 02/02: Intubation 02/05: Extubation . Assessment and Plan - Disease Oriented Problem List (1) Non-ST elevated myocardial infarction (non-STEMI) (2) Acute kidney injury (3) Type 2 diabetes mellitus (4) Acute hypoxemic respiratory failure (5) Pulmonary edema cardiac cause (6) Acute myocardial infarction (7) Atrial fibrillation (8) Cardiogenic shock Pertinent Non-Medical Issues: Psychosocial: She was born in [facility] and lived there most of her life. She was however her passed in 1983. She moved to [place] in the early s. 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 She has 1 son. 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 Legal: Living will on the chart with healthcare surrogate. Ethical issues impacting care: None noted. . Important Contacts: Granddaughter: Treva Arvizu Son: Vicky Arvizu . Prognosis: Her prognosis is guarded. She is of advanced age at 87 and showing signs of decline. In addition to renal insufficiency she has multiple cardiac risk factors to include hypertension, hyperlipidemia, obesity with BMI 30.8 kg/m, diabetes with a hemoglobin A1c 7.8 and evidence of at minimum a non-STEMI. Cardiac catheterization per the television producer report would be a high risk/"heroic " procedure. She is also febrile with no known source of infection. Urinalysis has been negative on 01/29 and 01/31, influenza is negative and blood cultures are negative times 1 day. Empiric antibiotic coverage is being initiated as cultures are pending. She is at increased risk of continued hospitalizations, complications and decline. . Code Status: Full Code Plan: Legal decision maker: Patient at this time is confused and not capacitated for decision-making. It is uncertain if she will regain capacity. Living will and healthcare surrogate on the chart name her granddaughter Treva and Treva's brother Gonzalez as joint healthcare surrogate's. Gonzalez is a member of the [employer] currently regarding the president and unavailable. Goals: Aggressive CODE STATUS: FULL CODE SYMPTOMS: * Confusion: episodic/ sundowners overnight with confusion and tries to get out of bed, placing her at risk for fall, prev. requiring restraints. This exacerbates her anxiety. has not required restraints in many days. UA sent negative. overall appears to be improving. * Weakness: Globally weak. At baseline, prior to admission, used walker/ wheelchair. Now requires 1 person standby plus walker. Family and patient goals aggressive. Requesting rehabilitation. Declined by [facility], pending rehab placement. Participating in PT 7 days a week, with slow improvement. * Anxiety: Worsens overnight, started on 25 mg of Seroquel - overall improving, calmer/less confused in the past several days. Has required prn 0.5mg Xanax PO about 1-2 times per day. if anxiety/behaviors worsen consider Increase Seroquel to 50 mg. Monitor response. Palliative care will continue to follow the patient during hospital course as condition evolves, to assist patient/decision-maker with understanding of their medical conditions, weighing benefits/burdens of treatment options, for clarification of goals of treatment. Additionally will assist with any symptoms of palliative concern. . Attestation Attestation: To help prompt me to consider important information that might be impacting today's encounter and assessment, information from prior notes written by myself or my colleagues may have been "brought forward" into today's note. My signature on this note, however, is an attestation that I personally performed the exam, history, and/or decision-making noted today, and, unless otherwise indicated, the interactions with patient, family, and staff as well as the review of records all occurred today. I also attest that the listed assessment and stated plan reflect my best clinical judgment today based on the combination of historical information, prior notes, and today's exam/ interactions. When time spent is documented, it refers only to time spent today by the signer, or if indicated, combined time spent today by collaborating physician/nurse practitioner. .
[2018-02-22] MEDS: ALPRAZolam 0.5 MG Tablet PO PRN (20:28)
[2018-02-22] MEDS: QUEtiapine 25 MG Tablet PO SCH (20:28)
[2018-02-23] MEDS: Heparin - SQ 10,000 UNITS/ML Vial SQ SCH ×3 (05:49→22:40)
[2018-02-23] MEDS: Insulin NovoLOG Aspart Correctional Sugar Inj SQ SCH ×4 (09:29→20:25)
[2018-02-23] MEDS: Chlorhexidine 0.12% Oral Kit 15 ML UDC OROPHARYNG SCH ×2 (09:30→20:24)
--- NOTE | 2018-02-23 09:52 | P.PN ---
Subjective Interval history: This is a pleasant 87 y/o Female with DM II admitted for NSTEMI and also developed UTI due to ESBL organism. 02/22: Seen in her bedroom discussed with Mahin and nurse Miss Garcia, she was already discharged to Rehab declined by [facility], continue inpatient management until placement found. 02/23: Stable in her bedroom, sitter by her side will follow BMP in am tomorrow to re evaluate her Creatinine her RHETT inhibitor and diuretic were held will follow Blood pressure. no new complaint, continue with Left upper arm with ecchymosis. Physical Exam Vital signs: Vital Signs 02/22/18 12:00 02/22/18 16:00 02/22/18 20:00 Temperature 98.0 F 97.8 F 98.3 F Pulse Rate 60 73 89 Respiratory Rate 20 20 18 Blood Pressure 121/81 137/60 130/71 Pulse Oximetry 96 98 97 02/23/18 00:00 02/23/18 04:00 02/23/18 08:00 Temperature 98.1 F 97.9 F 98.1 F Pulse Rate 71 65 76 Respiratory Rate 18 20 17 Blood Pressure 105/50 L 112/54 L 129/55 L Pulse Oximetry 96 98 97 02/23/18 08:30 Temperature 98.1 F Pulse Rate 76 Respiratory Rate 17 Blood Pressure 129/55 L Pulse Oximetry 97 Intake & Output 02/22/18 02/23/18 02/23/18 18:59 06:59 18:59 Intake Total 560 / 560 240 / 240 Output Total 600 / 600 300 / 300 Balance -40 / -40 -60 / -60 Weight 80.2 kg Intake: Oral 560 / 560 240 / 240 Output: Urine 600 / 600 300 / 300 Other: # Voids 6 2 Date of Last Bowel Movement 02/20/18 # Bowel Movements 1 Narrative: GENERAL: This is a well-nourished, well-developed patient, in no apparent distress. CARDIOVASCULAR: Regular rate and rhythm without murmurs, gallops, or rubs. RESPIRATORY: Clear to auscultation. Breath sounds equal bilaterally. No wheezes , rales, or rhonchi. GASTROINTESTINAL: Abdomen soft, non-tender, nondistended. Normal active bowel sounds MUSCULOSKELETAL: Extremities without clubbing, cyanosis, or edema. NEURO: Alert & Oriented x4 to person, place, time, situation. Moves all ext x4 - Urinary Catheter Management Indwelling Temp Sensing Catheter Cath placed during this visit: no Urethral indwelling: Yes Reason for continuing: Hourly intake/output Results - Labs CBC & Chem 7: 02/20/18 06:08 02/22/18 05:57 Laboratory Results - last 24 hr 02/22/18 02/22/18 02/22/18 11:56 17:01 19:30 POC Glucose 234 H 203 H 238 H 02/23/18 07:52 POC Glucose 141 H - Imaging Abdomen/Bladder Ultrasound 02/02/18 00:00 CONCLUSION: 1. Increased renal echogenicity typical of chronic parenchymal changes. 2. No evidence of acute obstructive uropathy. 3. Small bilateral benign-appearing cysts. Abdomen/Pelvis CT 02/02/18 00:00 CONCLUSION: 1. No acute abnormalities are seen in the abdomen or pelvis. 2. Mildly atrophic left kidney with vascular calcifications. 3. Aortoiliac atherosclerosis. No aneurysm. 4. Cholelithiasis. 5. Bilateral small pleural effusions and mild to moderate basilar atelectasis. 6. Coronary artery calcification. 7. Nonspecific mass of the visualized left breast. Last mammogram in our system was 2012. Up-to-date bilateral mammography with a diagnostic left breast mammogram recommended. Chest X-Ray 02/06/18 06:00 CONCLUSION: Interval extubation. Stable aeration. Head MRI 02/10/18 10:53 CONCLUSION: 1. No acute findings. No recent infarct identified. - Procedures No invasive procedures. Assessment and Plan - Plan 87 yo female with prior heart attack, AFib, DM presents with: //Acute myocardial infarction -Continue antiplatelet therapy (ASA, Plavix) and statin. -Status post PCI with LAD stent ([facility]MARIA) 02/03/[address] Peralta -Con't ASA/Plavix/Statin -BB/RHETT-I/Spironolactone for heart failure -Continue management per cardiology, recs appreciated. Stable for discharge. //Ischemic cardiomyopathy -Continue beta-blockers metoprolol 50 mg p.o. 2 times daily, enalapril 10 mg twice daily -Repeat echo February 06, 2018 with EF of 30% -Continue medications as per cardiology //Atrial fibrillation -Currently rate controlled -Continue metoprolol 50mg BID -Currently on DAPT and subcu heparin, if A. fib persists may need full anticoagulation -Cardiology to discuss with family for possible starting of oral anticoagulation -Holding off on anticoagulation for now due to fall risk. Follow with cardiology as outpatient. Continue current medication regimen. //Acute kidney injury asked for new BMP and got the Potassium in 4.5 and Creatinine worsening in 1.71 will recommend to hold Spironolactone and RHETT inhibitor at this time and follow not yet discharged. encourage to drink water. //Dysuria. Report on 02/20. Will check urinalysis. //Diabetes mellitus, poorly controlled -Currently on Medium correction sliding scale insulin protocol -Change Levemir to 8 units BID and adjust as needed (works better as BID insulin ). // UTI , ESBL + organism -Currently on ertapenem and monitor culture report -Completed ertapenem 02/18; discontinue midline catheter PPx: Heparin Code Status: Full Code Discussed Condition With: Patient, Sitter and Nurse Miss Douglas. Discharge Planning: To rehab when arrangements made. Currently pending authorization. Appreciate case management assistance.
[2018-02-23] MEDS: Metoprolol Tartrate 25 MG Tablet PO SCH ×2 (10:48→20:24)
[2018-02-23] MEDS: Insulin Detemir Inj 1,000 UNIT/10 ML Vial SQ SCH ×2 (10:52→20:24)
[2018-02-23] MEDS: Famotidine PF Inj 20 MG/2 ML Vial IV.PUSH SCH ×2 (10:53→20:25)
[2018-02-23] MEDS: ALPRAZolam 0.5 MG Tablet PO PRN (20:26)
[2018-02-23] MEDS: QUEtiapine 25 MG Tablet PO SCH (20:26)
[2018-02-24] MEDS: ALPRAZolam 0.5 MG Tablet PO PRN (04:20)
[2018-02-24] MEDS: Heparin - SQ 10,000 UNITS/ML Vial SQ SCH ×3 (05:42→22:38)
[2018-02-24 07:43] LABS: Calcium 8.8 mg/dL (8.5-10.1); Carbon Dioxide 26.9 meq/L (21.0-32.0); Potassium 4.3 meq/L (3.5-5.1)
--- NOTE | 2018-02-24 08:46 | P.PN ---
Subjective Interval history: This is a pleasant 87 y/o Female with DM II admitted for NSTEMI and also developed UTI due to ESBL organism. 02/22: Seen in her bedroom discussed with Sitter and nurse Miss Garcia, she was already discharged to Rehab declined by [facility], continue inpatient management until placement found. 02/23: Stable in her bedroom, sitter by her side will follow BMP in am tomorrow to re evaluate her Creatinine her RHETT inhibitor and diuretic were held will follow Blood pressure. no new complaint, continue with Left upper arm with ecchymosis. 02/24: Discussed with patient and Nurse Miss Douglas, will remove Sitter she will go tomorrow to SNF. no nausea, vomit or diarrhea. Physical Exam Vital signs: Vital Signs 02/23/18 12:00 02/23/18 20:00 02/24/18 00:00 Temperature 98.6 F 98.1 F 97.6 F Pulse Rate 80 64 77 Respiratory Rate 17 16 18 Blood Pressure 113/70 141/65 H 123/56 L Pulse Oximetry 98 97 97 02/24/18 04:00 Temperature 98.2 F Pulse Rate 70 Respiratory Rate 18 Blood Pressure 121/59 L Pulse Oximetry 94 L Intake & Output 02/23/18 02/24/18 02/24/18 18:59 06:59 18:59 Intake Total 680 / 680 Balance 680 / 680 Weight 81.6 kg Intake: Oral 680 / 680 Other: # Voids 3 4 Date of Last Bowel Movement 02/20/18 Narrative: GENERAL: This is a well-nourished, well-developed patient, in no apparent distress. CARDIOVASCULAR: Regular rate and rhythm without murmurs, gallops, or rubs. RESPIRATORY: Clear to auscultation. Breath sounds equal bilaterally. No wheezes , rales, or rhonchi. GASTROINTESTINAL: Abdomen soft, non-tender, nondistended. Normal active bowel sounds MUSCULOSKELETAL: Extremities without clubbing, cyanosis, or edema. NEURO: Alert & Oriented x4 to person, place, time, situation. Moves all ext x4 - Urinary Catheter Management Indwelling Temp Sensing Catheter Cath placed during this visit: no Urethral indwelling: Yes Reason for continuing: Hourly intake/output Results - Labs CBC & Chem 7: 02/20/18 06:08 02/24/18 06:59 Laboratory Results - last 24 hr 02/23/18 02/23/18 02/24/18 16:03 19:35 06:59 Sodium 141 Potassium 4.3 Chloride 109 H Carbon Dioxide 26.9 Anion Gap 5 BUN 24 H Creatinine 1.35 H Estimated GFR 37 L POC Glucose 221 H 225 H Random Glucose 162 H Calcium 8.8 - Imaging Abdomen/Bladder Ultrasound 02/02/18 00:00 CONCLUSION: 1. Increased renal echogenicity typical of chronic parenchymal changes. 2. No evidence of acute obstructive uropathy. 3. Small bilateral benign-appearing cysts. Abdomen/Pelvis CT 02/02/18 00:00 CONCLUSION: 1. No acute abnormalities are seen in the abdomen or pelvis. 2. Mildly atrophic left kidney with vascular calcifications. 3. Aortoiliac atherosclerosis. No aneurysm. 4. Cholelithiasis. 5. Bilateral small pleural effusions and mild to moderate basilar atelectasis. 6. Coronary artery calcification. 7. Nonspecific mass of the visualized left breast. Last mammogram in our system was 2012. Up-to-date bilateral mammography with a diagnostic left breast mammogram recommended. Chest X-Ray 02/06/18 06:00 CONCLUSION: Interval extubation. Stable aeration. Head MRI 02/10/18 10:53 CONCLUSION: 1. No acute findings. No recent infarct identified. - Procedures No invasive procedures. Assessment and Plan - Plan 87 yo female with prior heart attack, AFib, DM presents with: //Acute myocardial infarction -Continue antiplatelet therapy (ASA, Plavix) and statin. -Status post PCI with LAD stent (LUZMARIA) 02/03/[address] Peralta -Con't ASA/Plavix/Statin -BB/RHETT-I/Spironolactone for heart failure -Continue management per cardiology, recs appreciated. Stable for discharge. //Ischemic cardiomyopathy -Continue beta-blockers metoprolol 50 mg p.o. 2 times daily, enalapril 10 mg twice daily -Repeat echo February 06, 2018 with EF of 30% -Continue medications as per cardiology //Atrial fibrillation -Currently rate controlled -Continue metoprolol 50mg BID -Currently on DAPT and subcu heparin, if A. fib persists may need full anticoagulation -Cardiology to discuss with family for possible starting of oral anticoagulation -Holding off on anticoagulation for now due to fall risk. Follow with cardiology as outpatient. Continue current medication regimen. //Acute kidney injury today improving to 1.35 continue on hold diuretics and RHETT inhibitors. //Dysuria. Report on 02/20. Will check urinalysis. //Diabetes mellitus, poorly controlled -Currently on Medium correction sliding scale insulin protocol -Increased Levemir to 10 units ID and Diabetic diet. // UTI , ESBL + organism -Currently on ertapenem and monitor culture report -Completed ertapenem 02/18; discontinue midline catheter PPx: Heparin Code Status: Full code. Discussed Condition With: patient and Nurse miss Douglas Discharge Planning: To rehab when arrangements made. Currently pending authorization. Appreciate case management assistance.
[2018-02-24] MEDS: Insulin NovoLOG Aspart Correctional Sugar Inj SQ SCH ×4 (09:30→21:46)
[2018-02-24] MEDS: Chlorhexidine 0.12% Oral Kit 15 ML UDC OROPHARYNG SCH ×2 (09:31→20:02)
[2018-02-24] MEDS: Metoprolol Tartrate 25 MG Tablet PO SCH ×2 (09:33→22:35)
[2018-02-24] MEDS: Famotidine PF Inj 20 MG/2 ML Vial IV.PUSH SCH ×2 (09:34→22:37)
[2018-02-24] MEDS: Insulin Detemir Inj 1,000 UNIT/10 ML Vial SQ SCH ×2 (09:34→21:46)
[2018-02-24] MEDS: QUEtiapine 25 MG Tablet PO SCH (22:35)
[2018-02-25] MEDS: Heparin - SQ 10,000 UNITS/ML Vial SQ SCH ×4 (05:23→22:28)
--- NOTE | 2018-02-25 08:14 | CATHPROC ---
[facility] HIS Report Study Information Study Number Admission Scheduled Start Study Start [id number] Jan 31 2018 3:51AM 02/03/2018 Feb 03 2018 11:51AM [place] Service Cardiac Pacer/ICD Admit Source Facility Department Emergency department [facility] Physician and Clinical Staff Initial [place] Motion Picture Film Examiner Bonnie Johnson,RN Recorder Choco Brannon,(R) Scrub Bronson Alvarez RCIS(BS) Scrub Paty Iverson,RN/BA Procedures Performed Procedure Location (Site) Vessel Name Coronary Angiograms LCA Left Coronary Coronary Angiograms RCA Right Coronary Drug Eluting Inflatio LAD Mid Left Coronary L Heart Cath PTCA LAD Mid Left Coronary Wire insertion Fem Art (right) Femoral Art Equipment Time Alternative Medicine Practitioner Description Size Mfg Part Number Used/Scraped WIRE, BALANCE MIDDLEWEIGHT [id number] 12:55 [employer] 190CM Used 190CM *[id number] TRANSDUCER, TRUWAVE [id number] 11:59 COWAN VENCES * Used W/STOCKCOCK *[id number] INTRODUCER SET, 11:59 [employer] FR 5 [id number] *[id number] Used MICROPUNCTURE STIFF [phone] *[id number] 534-521T *[id number] 11:59 Lala BLANKET,WARM AIR CCL * Used *[id number] 11:59 Lala PACK, CCL CUSTOM * Used *[id number] 13:00 [employer] BALLOON, 2.0 X 10MM EUPHORA 10MM Used *[id number] BALLOON, 2.5 X 8MM NC [id number] 13:17 MEDTRONIC 8MM Used EUPHORA *[id number] BALLOON, 2.5 X 8MM NC [id number] 13:17 MEDTR[employer] 8MM Used EUPHORA *[id number] 13:14 [employer] STENT, 2.25 12MM VAIBHAV 2.25 12MM Used *[id number] 12:55 [employer]/AVE EBU 3.5 Z2 GUIDE CATHETER FR 6 Used *[id number] 13:12 [employer] MEDICAL 30 WILBERTO INDEFLATOR Used *[id number] 11:59 [employer] MEDICAL WIRE, 3MMJ .035 180CM 180CM Used *[id number] 11:59 NAMIC MANIFOLD, 4 PORT * Used *[id number] 11:59 [employer]COMED OMNIPAQUE, 350 MG, 150ML 150ML [id number] Used [id number] 11:59 TERUMO MEDICAL SHEATH, FR5 TERUMO (10CM) FR 5 Used *[id number] 12:57 [employer] MEDICAL SHEATH, FR6 TERUMO (10CM) FR 6 Used *[id number] Equipment Model, Serial, Lot Number and Expiration Data Description Model Number Serial Number Lot Number Expiration Date BALLOON, 2.5 X 8MM NC EUPHORA [id number] 09-06-2019 STENT, 2.25 12MM VAIBHAV [id number] 04-10-2019 History: Current Medications Medication Dosage/Unit Route Frequency Last Date/Time Taken LOPRESSOR ASA PLAVIX HEPARIN NTG Patch History: Allergies Allergy Reaction Penicillin UNKNOWN Sulfa UNKNOWN Sulfa (Sulfonamide Antibiotics) UNKNOWN penicillin G UNKNOWN ciprofloxacin unknown History: Risk Factors Family History of Hypertension Dyslipidemia Previous DE Previous Heart Failure Premature CAD Yes Yes No Yes No Prior Valve Prior PCI Prior PCIDate Prior CABG Surgery No Yes 01/31/2003 No Cerebrovascular Peripheral Artery Chronic Lung On Dialysis Diabetes Diabetes Therapy Disease Disease Disease No No No No Yes Insulin History: CV Disease Selection Items Known CAD DE History: Stress Tests Stress or Imaging Studies Performed No History: Other Disease Selection Items CAD HTN History: Other Current Smoker Method Packs a Day No Cigarettes 1 Labs Hgb (g/dl) Hct (%) WBC (l/cumm) Platelets (thousands) 11.60-17.00 35.00-51.00 4.00-11.00 150.00-450.00 12.8 38.7 15.2 209 Glucose (mg/dl) BUN (mg/dl) Creatinine (mg/dl) BUN:Creatinine (1:x) 74.00-106.00 7.00-18.00 0.50-1.30 10.00-20.00 156 39 1.7 22.9 Na (meq/l) K (meq/l) Cl (meq/l) CO2 (mmol/L) Ca (mg/dl) 136.00-145.00 3.50-5.10 98.00-107.00 21.00-32.00 8.50-10.10 138 4.2 106 22.3 8.6 PTT (sec) 24.30-30.10 35.9 Troponin I (ng/ml) CPK (u/l) CPK-MB (ng/ML) 0.02-0.05 26.00-308.00 0.50-3.60 15.8 429 8.6 Medication Medication Total Dose (Bolus/Oral) Medication Total Dosage/Unit 1% XYLOCAINE 20 mL HEPARIN 6300 units PROPOFOL 20 mcg/kg/hr Medications (Bolus/Oral) Medication Time Given Dosage/Unit Administered By Reason PROPOFOL 02/03/2018 12:30:07 PM 20 mcg/kg/hr Patient arrived on 20 mcg/kg/hr PROPOFOL via Peripheral IV. Pump/Drip Flow = 0 ml/hr using [Solution Name]. 1% XYLOCAINE 02/03/2018 12:41:19 PM 20 mL Gonzalez Peralta 20 mL 1% XYLOCAINE given in lab by Gonzalez Peralta in Right Groin via Subcutaneous. HEPARIN 02/03/2018 12:58:32 PM 6300 units Paty Iverson 6300 units HEPARIN given in lab by Paty Iverson, RN/BA in Left Antecubital via Peripheral IV. Medication (Drip) Medication Time Given Dosage/Unit Concentration/Unit Diluent (ml) Solution INSULIN (HUMAN) 02/03/2018 12:40:08 PM 2 units Patient arrived on 2 units INSULIN (HUMAN) in Left Antecubital via Peripheral IV. JEAN PIERRE-SYNEPHRINE 02/03/2018 12:30:43 PM 10 mg/kg/hr 10 mg 250 D5W Patient arrived on 10 mg/kg/hr JEAN PIERRE-SYNEPHRINE via Peripheral IV. Pump/Drip Flow = 41211 ml/hr using D 5W with a concentration of 10 mg in 250 ml. Initial Case Assessment Cardiovascular HR Rhythm NIBP 83 Irregular 137/66 Edema Present Skin color Skin Mild Normal Cool Circulatory - Right Pulses Dorsalis Pedis Femoral d 1 Scale (0,1,2,3,4,d) Circulatory - Left Pulses Dorsalis Pedis Femoral d 1 Scale (0,1,2,3,4,d) Neurological State Unresponsive Respiration - General Respiration Rate SpO2 (%) (B/min) 14 100 Respiration - Ventilator Type Intubation Type ET(oral) Final Case Assessment Cardiovascular HR Rhythm 90 Sinus Edema Present Skin color Skin Moderate Normal Cool Circulatory - Right Pulses Dorsalis Pedis Femoral d 1 Scale (0,1,2,3,4,d) Circulatory - Left Pulses Dorsalis Pedis Femoral d 1 Scale (0,1,2,3,4,d) Neurological State Unresponsive Respiration - General Respiration Rate SpO2 (%) (B/min) 13 100 Respiration - Ventilator Type Intubation Type ET(oral) Chronological Log Time Study Chronological Log 12:15:09 MD arrived. 12:17:31 Patient arrived via Bed. 12:17:32 Patient Name, D.O.B, / Armband Verified By R.N. 12:17:34 Consent signed by the physician and the patient and verified by the [facility] staff. 12:17:38 Verbal Stimulation=2 Physical Stimulation=2 Airway=2 Respiration=2 TOTAL=8. (0=absent, 1=li mited, 2=present) 12:17:45 Patient has been NPO for More than 6Hrs. 12:17:46 Skin Breakdown- generalizes echomosis. 12:17:48 Patient Warmer Placed on the Table. 12:17:49 Bharath Prominences Protected 12:17:52 A # 20 IV was noted in the Forearm (right). Grade = 0 12:29:09 A # 20 IV was noted in the Forearm (left). Grade = 0 12:29:24 A # 20 IV was noted in the Hand (left). Grade = 0 12:29:38 A # 20 IV was noted in the Antecubital (left). Grade = 0 12:29:51 A # 20 IV was noted in the Forearm (right). Grade = 0 12:30:07 Patient arrived on 20 mcg/kg/hr PROPOFOL via Peripheral IV. Pump/Drip Flow = 0 ml/hr using [Solution Name]. Vitals capture started with the following parameters, Patient=Adult, Interval=5 min, Initial Pr kazrza=246 mmHg, 12:30:37 Deflation Rate=5 mmHg, Cuff placed on Left Arm Patient arrived on 10 mg/kg/hr JEAN PIERRE-SYNEPHRINE via Peripheral IV. Pump/Drip Flow = 20144 ml/hr u sing D5W with a 12:30:43 concentration of 10 mg in 250 ml. 12:32:08 TDYS=805/66 mmhg, FtF0=234.0 %, Pain=0, Jordan=10, Prescott=6 12:34:40 History and physical on the chart or being dictated. Assessment: Initial Case, HR=83 BPM, Rhythm=Irregular, XCWK=455/66 mmhg, Edema=Mild, Color=Norm al, Skin = Cool Right Pulses: Ephraim Ped=d, Femoral=1 12:34:42 Left Pulses: Ephraim Ped=d, Femoral=1 Neurological: State=Unresponsive Respiration: Resp=14 B/min, NtB3=406 %, Type=ET(Oral) 12:36:10 HR=97 bpm, CMDE=299/90 mmhg, AjK3=100.0 %, Resp=18 B/min, Pain=0, Jordan=10, Prescott=6 12:37:04 Bilateral groins prepped with 2% chlorhexidine, and draped after a 3 minute waiting time. 12:38:55 Reference ECG taken 12:39:01 Pressure channel 1 zeroed. Time Out. Correct patient, correct procedure, correct physician, labs, allergies, and equipment verified with labor relations teacher 12:39:49 team present. Fire risk assesment completed (see hard stop sheet for coding). Time Out Conc urred by MD and individual staff in procedure. 12:40:08 Patient arrived on 2 units INSULIN (HUMAN) in Left Antecubital via Peripheral IV. 12:41:15 HR=92 bpm, VOVZ=013/79 mmhg, UvI1=076.0 %, Resp=15 B/min, Pain=0, Jordan=10, Prescott=6 12:41:19 20 mL 1% XYLOCAINE given in lab by Gonzalez Peralta in Right Groin via Subcutaneous. 12:41:24 Case Start 12:45:59 Access site was Right Femoral Artery. 12:46:14 HR=79 bpm, KOLU=326/96 mmhg, YwN9=217.0 %, Resp=18 B/min, Pain=0, Jordan=10, Prescott=6 12:46:27 A SHEATH, FR5 TERUMO (10CM) FR 5 was advanced into the Fem Art (right) using the Percutaneo us technique. 12:47:12 An injection in the Fem Art (right) was made through the SHEATH, FR5 TERUMO (10CM) FR 5. A JR 4.0 INFINITI CATHETER FR 5 was advanced over a wire. OMNIPAQUE, 350 MG, 150ML 150ML was us ed for 12:48:55 injections. Recorded Pressure: LV, VS=503, Condition=Condition 1 12:50:15 (Left Ventricle) LV 111/18/21 Recorded Pressure: LV, Ao, HR=85, Condition=Condition 1 12:50:30 (Left Ventricle) LV 126/19/23, (Aorta) Ao 131/64/93 12:51:02 The RCA was injected and visualized at various angles. OMNIPAQUE, 350 MG, 150ML 150ML used . 12:51:19 HR=91 bpm, DKLN=485/86 mmhg, QqN5=815.0 %, Resp=6 B/min, Pain=0, Jordan=10, Prescott=6 After removing the current catheter a JL 4.0 INFINITI CATHETER FR 5 was advanced over a WIRE, 3 MMJ .035 180CM 12:52:28 180CM. 12:53:43 The LCA was injected and visualized at various angles. OMNIPAQUE, 350 MG, 150ML 150ML used . Recorded Pressure: Ao, IK=639, Condition=Condition 1 12:54:21 (Aorta) Ao 121/67/92 12:56:18 PX=443 bpm, WTZS=793/77 mmhg, XoH9=612.0 %, Resp=11 B/min, Pain=0, Jordan=10, Prescott=6 12:58:32 6300 units HEPARIN given in lab by Paty Iverson, RN/BA in Left Antecubital via Peripheral IV. After removing the current catheter a EBU 3.5 Z2 GUIDE CATHETER FR 6 was advanced over a WIRE, 3MMJ .035 12:58:52 180CM 180CM. 13:01:19 HR=94 bpm, PTWL=939/80 mmhg, HbD1=619.0 %, Resp=0 B/min, Pain=0, Jordan=10, Prescott=6 13:01:50 A WIRE, BALANCE MIDDLEWEIGHT 190CM 190CM was inserted via Fem Art (right). 13:06:59 HR=78 bpm, KMWW=027/69 mmhg, ElK3=771.0 %, Resp=8 B/min, Pain=0, Jordan=10, Prescott=6 13:08:01 The previous wire was exchanged for a WIRE, 3MMJ .035 180CM 180CM. 13:08:14 The previous wire was exchanged for a WIRE, BALANCE MIDDLEWEIGHT 190CM 190CM. 13:10:14 Activated Clotting Time Drawn 13:11:19 HR=97 bpm, DIQI=859/58 mmhg, EdC0=056.0 %, Resp=19 B/min, Pain=0, Jordan=10, Prescott=6 13:11:37 Interventional wire has crossed the lesion A BALLOON, 2.0 X 10MM EUPHORA 10MM was inserted over WIRE, BALANCE MIDDLEWEIGHT 190CM 190CM via the 13:11:50 LAD Mid. A BALLOON, 2.0 X 10MM EUPHORA 10MM over a WIRE, BALANCE MIDDLEWEIGHT 190CM 190CM in the LAD Mid was 13:11:52 inflated using a 30 WILBERTO INDEFLATOR at 8 wilberto for 20 sec. A BALLOON, 2.0 X 10MM EUPHORA 10MM over a WIRE, BALANCE MIDDLEWEIGHT 190CM 190CM in the LAD Mid was 13:12:44 inflated using a 30 WILBERTO INDEFLATOR at 16 wilberto for 20 sec. 13:13:30 Balloon Removed. 13:14:37 ACT (Normal Range 90-180) = 276 A STENT, 2.25 12MM VAIBHAV 2.25 12MM was advanced through a EBU 3.5 Z2 GUIDE CATHETER FR 6 over a WIRE, 13:15:56 BALANCE MIDDLEWEIGHT 190CM 190CM. A STENT, 2.25 12MM VAIBHAV 2.25 12MM was deployed using a 30 WILBERTO INDEFLATOR at 16 atmospheres for 30 seconds 13:16:20 in the LAD Mid. 13:17:53 HR=89 bpm, FCRA=623/59 mmhg, LmP9=084.0 %, Resp=36 B/min, Pain=0, Jordan=10, Prescott=6 A BALLOON, 2.5 X 8MM NC EUPHORA 8MM was inserted over WIRE, BALANCE MIDDLEWEIGHT 190CM 190CM vi a the 13:18:37 LAD Mid. A BALLOON, 2.5 X 8MM NC EUPHORA 8MM over a WIRE, BALANCE MIDDLEWEIGHT 190CM 190CM in the LAD Mi d was 13:18:53 inflated using a 30 WILBERTO INDEFLATOR at 8 wilberto for 12 sec. A BALLOON, 2.5 X 8MM NC EUPHORA 8MM over a WIRE, BALANCE MIDDLEWEIGHT 190CM 190CM in the LAD Mi d was 13:19:51 inflated using a 30 WILBERTO INDEFLATOR at 14 wilberto for 14 sec. 13:20:46 Balloon Removed. 13:21:19 NC=634 bpm, USYJ=136/89 mmhg, ZdC8=416.0 %, Resp=9 B/min, Pain=0, Jordan=10, Prescott=6 13:21:23 The LCA was injected and visualized at various angles. OMNIPAQUE, 350 MG, 150ML 150ML used . 13:23:06 Wire removed 13:23:18 Case End (Physician broke scrub) Assessment: Final Case, HR=90 BPM, Rhythm=Sinus, Edema=Mod, Color=Normal, Skin = Cool Right Pulses: Ephraim Ped=d, Femoral=1 13:25:23 Left Pulses: Ephraim Ped=d, Femoral=1 Neurological: State=Unresponsive Respiration: Resp=13 B/min, BiK7=683 %, Type=ET(Oral) 13:26:18 HR=97 bpm, TXEH=840/55 mmhg, EzZ4=114.0 %, Resp=17 B/min, Pain=0, Jordan=6, Prescott=6 13:26:25 In the Fem Art (right) the SHEATH, FR6 TERUMO (10CM) FR [address] by Jonnathan Alvarez RCIS(BS). 13:32:17 Sterile dressing applied to site 13:32:18 No case complications noted. 13:32:19 Cine recording checked. 13:33:03 Bedside Report will be given. 13:33:05 A Left Heart Cath was performed. 13:33:12 Patient moved to [facility] End Study - Contrast Media Used In Study Contrast Total Opened (mL) Total Used (mL) Total Wasted (mL) Omnipaque 150 75 75 End Study - Maximum Contrast Load Max Contrast Load (mL) 263.5 End Study - Radiation Exposure Fluoro Time (minutes) 9.5 End Study - Patient Disposition Complications Transferred To Interventional Outcome No Critical Care Bed successful
[2018-02-25] MEDS: Metoprolol Tartrate 25 MG Tablet PO SCH ×2 (09:01→22:11)
[2018-02-25] MEDS: Insulin NovoLOG Aspart Correctional Sugar Inj SQ SCH ×4 (09:02→22:08)
[2018-02-25] MEDS: Insulin Detemir Inj 1,000 UNIT/10 ML Vial SQ SCH ×2 (09:02→22:09)
[2018-02-25] MEDS: Chlorhexidine 0.12% Oral Kit 15 ML UDC OROPHARYNG SCH ×2 (09:02→22:12)
[2018-02-25] MEDS: Famotidine PF Inj 20 MG/2 ML Vial IV.PUSH SCH ×2 (09:03→22:10)
--- NOTE | 2018-02-25 17:11 | P.PN ---
Subjective Interval history: This is a pleasant 87 y/o Female with DM II admitted for NSTEMI and also developed UTI due to ESBL organism. 02/22: Seen in her bedroom discussed with Sitter and nurse Miss Garcia, she was already discharged to Rehab declined by [facility], continue inpatient management until placement found. 02/23: Stable in her bedroom, sitter by her side will follow BMP in am tomorrow to re evaluate her Creatinine her RHETT inhibitor and diuretic were held will follow Blood pressure. no new complaint, continue with Left upper arm with ecchymosis. 02/24: Discussed with patient and Nurse Miss Douglas, will remove Sitter she will go tomorrow to SNF. 02/25: Already discharged but not yet performed by Senior Java Web Developer, continue working on the case. no new events, no sitter was removed yesterday. no nausea, vomit or diarrhea. Physical Exam Vital signs: Vital Signs 02/24/18 20:00 02/25/18 00:00 02/25/18 04:00 Temperature 98.3 F 97.9 F 97.8 F Pulse Rate 89 93 H 79 Respiratory Rate 19 18 17 Blood Pressure 163/85 H 158/56 H 140/62 Pulse Oximetry 94 L 97 97 02/25/18 08:00 02/25/18 12:00 Temperature 98.0 F 98.0 F Pulse Rate 85 78 Respiratory Rate 18 19 Blood Pressure 146/62 H 149/74 H Pulse Oximetry 98 99 Intake & Output 02/24/18 02/25/18 02/25/18 18:59 06:59 18:59 Weight 82 kg Other: # Voids 3 Narrative: GENERAL: This is a well-nourished, well-developed patient, in no apparent distress. CARDIOVASCULAR: Regular rate and rhythm without murmurs, gallops, or rubs. RESPIRATORY: Clear to auscultation. Breath sounds equal bilaterally. No wheezes , rales, or rhonchi. GASTROINTESTINAL: Abdomen soft, non-tender, nondistended. Normal active bowel sounds MUSCULOSKELETAL: Extremities without clubbing, cyanosis, or edema. NEURO: Alert & Oriented x4 to person, place, time, situation. Moves all ext x4 - Urinary Catheter Management Indwelling Temp Sensing Catheter Cath placed during this visit: no Urethral indwelling: Yes Reason for continuing: Hourly intake/output Results - Labs CBC & Chem 7: 02/20/18 06:08 02/24/18 06:59 Laboratory Results - last 24 hr 02/24/18 02/24/18 02/25/18 18:05 19:49 07:39 POC Glucose 258 H 251 H 158 H 02/25/18 02/25/18 11:54 16:58 POC Glucose 261 H 216 H - Imaging Abdomen/Bladder Ultrasound 02/02/18 00:00 CONCLUSION: 1. Increased renal echogenicity typical of chronic parenchymal changes. 2. No evidence of acute obstructive uropathy. 3. Small bilateral benign-appearing cysts. Abdomen/Pelvis CT 02/02/18 00:00 CONCLUSION: 1. No acute abnormalities are seen in the abdomen or pelvis. 2. Mildly atrophic left kidney with vascular calcifications. 3. Aortoiliac atherosclerosis. No aneurysm. 4. Cholelithiasis. 5. Bilateral small pleural effusions and mild to moderate basilar atelectasis. 6. Coronary artery calcification. 7. Nonspecific mass of the visualized left breast. Last mammogram in our system was 2012. Up-to-date bilateral mammography with a diagnostic left breast mammogram recommended. Chest X-Ray 02/06/18 06:00 CONCLUSION: Interval extubation. Stable aeration. Head MRI 02/10/18 10:53 CONCLUSION: 1. No acute findings. No recent infarct identified. - Procedures None Assessment and Plan - Plan 87 yo female with prior heart attack, AFib, DM presents with: //Acute myocardial infarction -Continue antiplatelet therapy (ASA, Plavix) and statin. -Status post PCI with LAD stent (LUZMARIA) 02/03/[address] Peralta -Con't ASA/Plavix/Statin -BB/RHETT-I/Spironolactone for heart failure -Continue management per cardiology, recs appreciated. Stable for discharge. //Ischemic cardiomyopathy -Continue beta-blockers metoprolol 50 mg p.o. 2 times daily, enalapril 10 mg twice daily -Repeat echo February 06, 2018 with EF of 30% -Continue medications as per cardiology //Atrial fibrillation -Currently rate controlled -Continue metoprolol 50mg BID -Currently on DAPT and subcu heparin, if A. fib persists may need full anticoagulation -Cardiology to discuss with family for possible starting of oral anticoagulation -Holding off on anticoagulation for now due to fall risk. Follow with cardiology as outpatient. Continue current medication regimen. //Acute kidney injury today improving to 1.35 continue on hold diuretics and RHETT inhibitors. //Dysuria. Report on 02/20. Will check urinalysis. //Diabetes mellitus, poorly controlled -Currently on Medium correction sliding scale insulin protocol -Increased Levemir to 12 units ID and Diabetic diet. // UTI , ESBL + organism -Currently on ertapenem and monitor culture report -Completed ertapenem 02/18; discontinue midline catheter PPx: Heparin No changes to anterior assessment. Code Status: Full Code. Discussed Condition With: Patient, Nurse and MDR. item repair manager included. Discharge Planning: To rehab when arrangements made. Currently pending authorization. Appreciate case management assistance.
[2018-02-25] MEDS: ALPRAZolam 0.5 MG Tablet PO PRN (17:27)
[2018-02-25] MEDS: QUEtiapine 25 MG Tablet PO SCH (22:12)
[2018-02-26] MEDS: ALPRAZolam 0.5 MG Tablet PO PRN ×2 (00:40→23:46)
[2018-02-26] MEDS: Heparin - SQ 10,000 UNITS/ML Vial SQ SCH ×3 (05:16→21:25)
--- NOTE | 2018-02-26 06:53 | ECG ---
Date Performed: 02/24/2018 Time Performed: 15:16:50 PTAGE: 87 years EKG: Probable atrial fibrillation with PVC(s) or aberrant ventricular conduction. Left anterior fascicular block Anteroseptal infarct - age undetermined Left ventricular hypertrophy Inferior/latera l ST-T changes are probably due to ventricular hypertrophy Abnormal ECG NO PREVIOUS TRACING DOCTOR: Jaycob Lara Interpretating Date/Time 02/26/2018 06:49:42
[2018-02-26] MEDS: Metoprolol Tartrate 25 MG Tablet PO SCH ×2 (08:52→21:09)
[2018-02-26] MEDS: Insulin Detemir Inj 1,000 UNIT/10 ML Vial SQ SCH ×2 (08:52→21:18)
[2018-02-26] MEDS: Insulin NovoLOG Aspart Correctional Sugar Inj SQ SCH ×4 (08:53→21:19)
[2018-02-26] MEDS: Famotidine PF Inj 20 MG/2 ML Vial IV.PUSH SCH ×2 (08:53→21:19)
[2018-02-26] MEDS: Chlorhexidine 0.12% Oral Kit 15 ML UDC OROPHARYNG SCH ×2 (08:55→21:17)
--- NOTE | 2018-02-26 16:46 | P.PNIM ---
Subjective Interval history: The patient was resting comfortably in bed. She said her heart was doing well. She has no acute complaints. Physical Exam Vital signs: Vital Signs 02/25/18 20:00 02/26/18 00:00 02/26/18 04:00 Temperature 97.9 F 97.8 F 97.9 F Pulse Rate 84 75 68 Respiratory Rate 18 16 16 Blood Pressure 122/68 132/66 138/88 Pulse Oximetry 98 97 95 02/26/18 08:00 02/26/18 12:00 Temperature 97.7 F 98.3 F Pulse Rate 110 H 76 Respiratory Rate 20 20 Blood Pressure 159/70 H 133/66 Pulse Oximetry 97 98 Intake & Output 02/25/18 02/26/18 02/26/18 18:59 06:59 18:59 Intake Total 480 / 480 Balance 480 / 480 Weight 79.7 kg Intake: Oral 480 / 480 Other: # Voids 4 4 Date of Last Bowel Movement 02/25/18 # Bowel Movements 1 Narrative: GENERAL: This is a well-nourished, well-developed patient, in no apparent distress. CARDIOVASCULAR: Regular rate and rhythm without murmurs, gallops, or rubs. RESPIRATORY: Clear to auscultation. Breath sounds equal bilaterally. No wheezes , rales, or rhonchi. GASTROINTESTINAL: Abdomen soft, non-tender, nondistended. Normal active bowel sounds MUSCULOSKELETAL: Extremities without clubbing, cyanosis, or edema. NEURO: Alert & Oriented x4 to person, place, time, situation. Moves all ext x4 - Urinary Catheter Management Indwelling Temp Sensing Catheter Cath placed during this visit: no Urethral indwelling: Yes Reason for continuing: Hourly intake/output Results - Labs CBC & Chem 7: 02/20/18 06:08 02/24/18 06:59 Laboratory Results - last 24 hr 02/25/18 02/25/18 02/26/18 16:58 21:51 07:42 POC Glucose 216 H 184 H 165 H 02/26/18 02/26/18 11:36 16:29 POC Glucose 220 H 178 H - Procedures None Assessment and Plan - Plan Acute myocardial infarction -Status post PCI with LAD stent (LUZMARIA) 02/03/[address] Peralta -Continue ASA/Plavix/Statin -Continue management per cardiology, recs appreciated. Ischemic cardiomyopathy -Continue beta-blockers metoprolol 50 mg p.o. 2 times daily, enalapril 10 mg twice daily -Repeat echo February 06, 2018 with EF of 30% -Continue medications as per cardiology Atrial fibrillation -Currently rate controlled -Continue metoprolol 50mg BID -Currently on DAPT and subcu heparin, if A. fib persists may need full anticoagulation -Holding off on anticoagulation for now due to fall risk. Follow with cardiology as outpatient. Continue current medication regimen. Acute kidney injury -continue to hold diuretics and RHETT inhibitors. Diabetes mellitus, poorly controlled -Currently on Medium correction sliding scale insulin protocol -Increased Levemir to 12 units ID and Diabetic diet. UTI , ESBL + organism -Currently on ertapenem and monitor culture report -Completed ertapenem 02/18; discontinue midline catheter PPx: Heparin Discharge Planning: Awaiting placement
[2018-02-26] MEDS: QUEtiapine 25 MG Tablet PO SCH ×2 (21:09→23:47)
[2018-02-27] MEDS: Heparin - SQ 10,000 UNITS/ML Vial SQ SCH ×3 (05:24→21:28)
[2018-02-27 08:39] LABS: Calcium 8.7 mg/dL (8.5-10.1); Carbon Dioxide 23.7 meq/L (21.0-32.0); Potassium 4.1 meq/L (3.5-5.1)
[2018-02-27] MEDS: Chlorhexidine 0.12% Oral Kit 15 ML UDC OROPHARYNG SCH ×2 (09:19→19:31)
[2018-02-27] MEDS: Insulin NovoLOG Aspart Correctional Sugar Inj SQ SCH ×4 (09:19→21:28)
[2018-02-27] MEDS: Insulin Detemir Inj 1,000 UNIT/10 ML Vial SQ SCH ×2 (09:20→21:27)
[2018-02-27] MEDS: Metoprolol Tartrate 25 MG Tablet PO SCH ×2 (09:21→20:13)
[2018-02-27] MEDS: Famotidine PF Inj 20 MG/2 ML Vial IV.PUSH SCH ×2 (09:26→20:11)
[2018-02-27] MEDS ORDERED: Dextrose 50% in Water 50 ML Vial IV.PUSH PRN (13:02)
--- NOTE | 2018-02-27 13:07 | P.PNIM ---
Subjective Interval history: The patient was wondering why her blood sugars have been so high, sometimes up to the 300s. She says at home they are normally well controlled. She had no other acute complaints. She says she has chronic knee pain but the pain medications have worked. Discussed with nursing. Physical Exam Vital signs: Vital Signs 02/26/18 16:00 02/26/18 20:00 02/27/18 00:00 Temperature 98.3 F 97.8 F 98.7 F Pulse Rate 70 82 86 Respiratory Rate 18 19 Blood Pressure 133/72 127/62 152/71 H Pulse Oximetry 100 99 96 02/27/18 04:00 02/27/18 08:00 02/27/18 12:00 Temperature 98.2 F 97.9 F 98.8 F Pulse Rate 86 88 85 Respiratory Rate 18 Blood Pressure 140/70 151/64 H 123/89 Pulse Oximetry 97 97 97 Intake & Output 02/26/18 02/27/18 02/27/18 18:59 06:59 18:59 Intake Total 720 / 720 420 / 420 Output Total 200 / 200 Balance 720 / 720 220 / 220 Weight 74.3 kg Intake: Oral 720 / 720 420 / 420 Output: Urine 200 / 200 Other: Date of Last Bowel Movement 02/26/18 Narrative: GENERAL: This is a well-nourished, well-developed patient, in no apparent distress. CARDIOVASCULAR: Regular rate and rhythm without murmurs, gallops, or rubs. RESPIRATORY: Clear to auscultation. Breath sounds equal bilaterally. No wheezes , rales, or rhonchi. GASTROINTESTINAL: Abdomen soft, non-tender, nondistended. Normal active bowel sounds MUSCULOSKELETAL: Extremities without clubbing, cyanosis, or edema. NEURO: Alert & Oriented x4 to person, place, time, situation. Moves all ext x4 - Urinary Catheter Management Indwelling Temp Sensing Catheter Cath placed during this visit: no Urethral indwelling: Yes Reason for continuing: Hourly intake/output Results - Labs CBC & Chem 7: 02/20/18 06:08 02/27/18 07:34 Laboratory Results - last 24 hr 02/26/18 02/26/18 02/27/18 16:29 19:59 07:33 Sodium Potassium Chloride Carbon Dioxide Anion Gap BUN Creatinine Estimated GFR POC Glucose 178 H 211 H 180 H Random Glucose Calcium 02/27/18 02/27/18 07:34 11:43 Sodium 142 Potassium 4.1 Chloride 111 H Carbon Dioxide 23.7 Anion Gap 7 BUN 24 H Creatinine 1.28 H Estimated GFR 39 L POC Glucose 252 H Random Glucose 182 H Calcium 8.7 - Procedures None Assessment and Plan - Plan Acute myocardial infarction -Status post PCI with LAD stent (LUZMARIA) 02/03/[address] Peralta -Continue ASA/Plavix/Statin -Continue management per cardiology, recs appreciated. Ischemic cardiomyopathy -Continue beta-blockers metoprolol 50 mg p.o. 2 times daily, enalapril 10 mg twice daily -Repeat echo February 06, 2018 with EF of 30% -Continue medications as per cardiology Atrial fibrillation -Currently rate controlled -Continue metoprolol 50mg BID -Currently on DAPT and subcu heparin, if A. fib persists may need full anticoagulation -Holding off on anticoagulation for now due to fall risk. Follow with cardiology as outpatient. Continue current medication regimen. Acute kidney injury -continue to hold diuretics and RHETT inhibitors. Diabetes mellitus, poorly controlled -Currently on medium correction sliding scale insulin protocol -Increased Levemir to 15 units ID and diabetic diet. UTI , ESBL + organism -Completed ertapenem 02/18; discontinued midline catheter. Knee pain Chronic. -Tramadol as needed. Improved. PPx: Heparin Discharge Planning: Awaiting placement
--- NOTE | 2018-02-27 18:58 | P.CONREH ---
History of Present Illness Service: Physical Medicine and Rehabilitation Reason for Consult: Comprehensive rehabilitation evaluation Primary Care Provider: Pavithra Carbone MD Chief Complaint: Respiratory distress History of Present Illness: Olimpia Arvizu is an 87-year-old female with a history of diabetes, anxiety/ depression, rectal cancer in remission, and CAD with previous admission for non-ST elevation [place] who was admitted to [facility] 01/31/18 with nonradiating chest pain which resolved after aspirin and sublingual nitroglycerin. She was subsequently found to have an acute anterior myocardial infarction with cardiogenic shock/nonsustained ventricular tachycardia and ischemic cardiomyopathy. On 02/03/18 LAD stent placed per cardiology. Patient was noted to have atrial fibrillation with rate controlled with metoprolol. Anticoagulation was held due to fall risk. Review of Systems Constitutional: Reports fatigue Eyes: Denies double vision Ears, Nose, Mouth, and Throat: Denies difficulty swallowing Cardiovascular: Denies chest pain Respiratory: Reports shortness of breath with activity Gastrointestinal: Denies abdominal pain Genitourinary: Reports urinary urgency Skin/Breast: Denies rash Neurologic: Reports abnormal walking, Denies tingling/numbness/burning sensations Psychiatric: Denies confusion Hematologic/Lymphatic: Reports easy bruising PMFSH - History History Provided By: Patient - Medical History Medical History: Medical History (Last Reviewed 03/06/18 @ 17:12 by Clementina Lundberg MD) MDRO (multiple drug resistant organisms) resistance Onset Date: ~02/02/18 Chest pain Diabetes History of hysterectomy Hyperlipidemia Hypertension Rectal cancer - Surgical History Surgical History: Surgical History (Last Reviewed 03/06/18 @ 17:12 by Clementina Lundberg MD) H/O heart artery stent History of tonsillectomy Hx of appendectomy - Family History Family History: Family History (Last Reviewed 03/05/18 @ 13:17 by Carmela Amaral) Other Family history of hypertension - Tobacco History Second Hand Smoke Exposure: No Smoking Status: Former smoker Tobacco Type: Cigarettes - Alcohol History How Often Do You Have a Drink Containing Alcohol: Monthly or less - Substance Use History Substance History: No History of Abuse - Immunization History Tetanus Immunization: Unsure Hx Influenza Vaccine This Season: No Medications and Allergies Active Medications: Active Medications Acetaminophen (Tylenol) 500 mg PO Q4H PRN PRN Reason: FEVER > 100.4 F Last Admin: 02/03/18 22:56 Dose: 500 mg Al Hydroxide/Mg Hydroxide (Milk Of Magnesia Liq) 30 ml PO Q12H PRN PRN Reason: Mild Constipation Albuterol (Duoneb Neb (Prn)) 1 ampul NEB Q2HR NEB PRN PRN Reason: SHORTNESS OF BREATH Alprazolam (Xanax) 0.5 mg PO Q8H PRN PRN Reason: ANXIETY Last Admin: 02/26/18 23:46 Dose: 0.5 mg Aspirin (Aspirin Chew) 81 mg PO DAILY [facility] Last Admin: 02/27/18 09:21 Dose: 81 mg Atorvastatin Calcium (Lipitor) 40 mg PO HS [facility] Last Admin: 02/26/18 21:09 Dose: Not Given Bisacodyl (Dulcolax Supp) 10 mg RECTAL DAILY PRN PRN Reason: SEVERE CONSITIPATION Chlorhexidine Gluconate (Peridex 0.12% Oral Kit) 15 ml OROPHARYNG BID@0800, 2000 [facility] Last Admin: 02/27/18 09:19 Dose: Not Given Clopidogrel Bisulfate (Plavix) 75 mg PO DAILY [facility] Last Admin: 02/27/18 09:21 Dose: 75 mg Dextrose (D50w Vial) 50 ml IV.PUSH UNSCH PRN PRN Reason: PER HYPOGLYCEMIA PROTOCOL Famotidine (Pepcid Pf Inj) 10 mg IV.PUSH Q12HR [facility] Last Admin: 02/27/18 09:26 Dose: 10 mg Glucagon (Glucagon Inj) 1 mg OTHER PRN PRN PRN Reason: for Hypoglycemia Protocol Heparin Sodium (Porcine) (Heparin Inj) 5,000 units SQ Q8HR [facility] Last Admin: 02/27/18 13:02 Dose: Not Given Insulin Aspart (Novolog Insulin Correctional Sugar Inj) 0 unit SQ [facility]; Protocol Last Admin: 02/27/18 17:35 Dose: Not Given Insulin Detemir (Levemir Inj) 15 unit SQ BID [facility] Lactulose (Lactulose Liq) 30 ml PO DAILY PRN PRN Reason: SEVERE CONSITIPATION Metoprolol Tartrate (Lopressor) 50 mg PO BID [facility] Last Admin: 02/27/18 09:21 Dose: 50 mg Miscellaneous (Pill Splitter) 1 each OTHER UNSCH PRN PRN Reason: SEE LABEL COMMENTS Quetiapine Fumarate (Seroquel) 25 mg PO HS [facility] Last Admin: 02/26/18 23:47 Dose: 25 mg Sennosides (Senokot) 17.2 mg PO Q12H PRN PRN Reason: Moderate Constipation Sodium Chloride (Ns Flush) 2 ml IV.FLUSH BID [facility] Last Admin: 02/27/18 09:22 Dose: 2 ml Sodium Chloride (Ns Flush) 2 ml IV.FLUSH UNSCH PRN PRN Reason: FLUSH AFTER USING IV ACCESS Tramadol HCl (Ultram) 50 mg PO Q6H PRN PRN Reason: Pain 1-10 Last Admin: 02/27/18 10:46 Dose: 50 mg Allergies Allergy/AdvReac Type Severity Reaction Status Date / Time penicillin G Allergy Severe UNKNOWN Verified 01/31/18 02:06 Sulfa (Sulfonamide Allergy Severe UNKNOWN Verified 01/31/18 02:06 Antibiotics) ciprofloxacin AdvReac unknown Verified 02/03/18 11:14 Exam - Physical Examination Vital Signs / I&O: Vital Signs 02/26/18 20:00 02/27/18 00:00 02/27/18 04:00 Temperature 97.8 F 98.7 F 98.2 F Pulse Rate 82 86 86 Respiratory Rate 20 19 18 Blood Pressure 127/62 152/71 H 140/70 Pulse Oximetry 99 96 97 02/27/18 08:00 02/27/18 12:00 02/27/18 16:00 Temperature 97.9 F 98.8 F 97 F L Pulse Rate 88 85 79 Respiratory Rate 18 18 18 Blood Pressure 151/64 H 123/89 141/60 H Pulse Oximetry 97 97 97 02/27/18 17:55 Temperature Pulse Rate Respiratory Rate Blood Pressure Pulse Oximetry 97 Intake & Output 02/26/18 02/27/18 02/27/18 18:59 06:59 18:59 Intake Total 720 / 720 420 / 420 Output Total 200 / 200 Balance 720 / 720 220 / 220 Weight 74.3 kg Intake: Oral 720 / 720 420 / 420 Output: Urine 200 / 200 Other: Date of Last Bowel Movement 02/26/18 02/27/18 # Bowel Movements 1 Intake & Output 02/25/18 02/26/18 02/27/18 02/28/18 06:59 06:59 06:59 06:59 Intake Total 480 / 480 1140 / 1140 Output Total 200 / 200 Balance 480 / 480 940 / 940 Weight 82 kg 79.7 kg 74.3 kg General: No acute distress, Other (Patient sitting up in bedside chair) Respiratory: Lungs CTA, Non-labored respirations, BS equal (Decreased breath sounds in the bases bilaterally) Gastrointestinal: Positive bowel sounds, Non-distended, Non-tender Date of Last Bowel Movement: 02/27/18 Cardiovascular: Normal rate, Irregular rhythm Skin: No rash Musculoskeletal: ROM (Within functional limits) Psychiatric: Cooperative, Appropriate mood & affect - Neurologic Orientation: oriented to: Self, Place, Time, Situation Neurologic: Cranial nerves (Grossly intact), Other (Moving all extremities to command with grossly 4-4+/5 strength) Sensory: Grossly intact to light touch in both upper and lower extremities Clonus: Negative Results - Labs CBC & Chem 7: 03/04/18 06:55 03/04/18 06:55 Labs: Laboratory Results - last 24 hr 02/26/18 02/27/18 02/27/18 19:59 07:33 07:34 Sodium 142 Potassium 4.1 Chloride 111 H Carbon Dioxide 23.7 Anion Gap 7 BUN 24 H Creatinine 1.28 H Estimated GFR 39 L POC Glucose 211 H 180 H Random Glucose 182 H Calcium 8.7 02/27/18 02/27/18 11:43 17:24 Sodium Potassium Chloride Carbon Dioxide Anion Gap BUN Creatinine Estimated GFR POC Glucose 252 H 117 H Random Glucose Calcium Assessment and Plan (1) Acute myocardial infarction Status: Acute Code(s): I21.9 - Acute myocardial infarction, unspecified - Plan Recommendations: 1. Patient is stand by assist with transfers and ambulating 50 feet with rolling walker and contact guard. Continue to mobilize as tolerated. 2. OT for ADL's and currently minimal assistance 3. Receiving SQ Heparin for VTE prophylaxis 4. Case management working on discharge planning in conjunction with family and anticipate skilled placement when approved by insurance 5. Will follow while hospitalized and at discharge as appropriate Thank you for this consult.
[2018-02-27] MEDS: ALPRAZolam 0.5 MG Tablet PO PRN (20:12)
[2018-02-27] MEDS: QUEtiapine 25 MG Tablet PO SCH (20:12)
[2018-02-28] MEDS: Heparin - SQ 10,000 UNITS/ML Vial SQ SCH ×3 (05:25→21:45)
[2018-02-28] MEDS: Metoprolol Tartrate 25 MG Tablet PO SCH ×2 (09:35→21:46)
[2018-02-28] MEDS: Famotidine PF Inj 20 MG/2 ML Vial IV.PUSH SCH ×2 (09:39→21:46)
[2018-02-28] MEDS: Chlorhexidine 0.12% Oral Kit 15 ML UDC OROPHARYNG SCH ×2 (09:40→19:55)
[2018-02-28] MEDS: Insulin Detemir Inj 1,000 UNIT/10 ML Vial SQ SCH ×2 (09:40→22:02)
[2018-02-28] MEDS: Insulin NovoLOG Aspart Correctional Sugar Inj SQ SCH ×4 (09:40→22:01)
--- NOTE | 2018-02-28 10:15 | P.DS ---
Date of admission: 01/31/18 03:51 Primary care physician: Pavithra Carbone MD Brief History from admission: 79-year-old female with a history of diabetes, anxiety, depression, history of rectal cancer in remission, CAD status post PCI, recent admission on 01/28 for non-ST elevation [place] discharged on 01/29.. Presents with acute onset of dull pressure-like nonradiating chest pain resolved with aspirin and sublingual nitroglycerin. She is currently chest pain-free. She has small cuts on both first toes, as well as abrasion on right elbow, however is unsure how she got these. She continues to report the chest pain is resolved. Patient says she does not believe she was given any additional medications upon discharge from the hospital most recently DS: Diagnosis - Discharge Diagnosis (1) Non-ST elevated myocardial infarction (non-STEMI) Status: Acute (2) Type 2 diabetes mellitus Status: Chronic (3) Frail elderly Status: Acute DS: Medications - Discharge Medications Prescriptions: alprazolam [Xanax] 0.5 mg PO TID PRN #9 tab PRN Reason: Anxiety tramadol 50 mg PO Q6H PRN #12 tab PRN Reason: Pain DS: Summary Hospital Course: Acute myocardial infarction/Ischemic cardiomyopathy/Afib Cardiology was consulted. Status post PCI with LAD stent 02/03/[address] Peralta. Echo February 06, 2018 with EF of 30%. The pt was continued on ASA/ Plavix/Statin/Beta julio cesar. The pt will follow up with cardiology as an outpt. Acute kidney injury Nephrology was consulted. We continued to hold diuretics and RHETT inhibitors. The pt will follow up with her PCP. Diabetes mellitus The pt was placed on a medium correction sliding scale along with Levemir 20 units daily, 15 units HS. The pt says at home she was on 40 units of insulin nightly. She will follow up with her PCP. She will continue a sliding scale. UTI ESBL + E coli. Infectious disease was consulted. The pt completed ertapenem and we then discontinued the midline catheter. - Time Spent with Patient Total time spent providing and/or coordinating discharge services: Greater than 30 minutes Exam Vital signs: Vital Signs 02/27/18 12:00 02/27/18 16:00 02/27/18 17:55 Temperature 98.8 F 97 F L Pulse Rate 85 79 Respiratory Rate 18 18 Blood Pressure 123/89 141/60 H Pulse Oximetry 97 97 97 02/27/18 20:00 02/28/18 00:00 02/28/18 01:53 Temperature 97.9 F 97.9 F Pulse Rate 83 50 L Respiratory Rate 18 16 16 Blood Pressure 142/64 H 115/62 Pulse Oximetry 94 L 97 02/28/18 03:08 02/28/18 08:00 Temperature 97.6 F 97.3 F L Pulse Rate 67 109 H Respiratory Rate 18 18 Blood Pressure 137/69 128/87 Pulse Oximetry 96 97 Intake & Output 02/27/18 02/28/18 02/28/18 18:59 06:59 18:59 Intake Total 900 / 900 Balance 900 / 900 Weight 74.8 kg Intake: Oral 900 / 900 Other: # Voids 3 Date of Last Bowel Movement 02/27/18 02/27/18 # Bowel Movements 1 Results Procedures completed during hospitalization: None Labs on day of discharge: Labs from last 24 hours 02/27/18 02/27/18 02/27/18 21:26 17:24 11:43 POC Glucose 244 H 117 H 252 H - Impressions ITS Impressions Abdomen/Bladder Ultrasound 02/02/18 00:00 CONCLUSION: 1. Increased renal echogenicity typical of chronic parenchymal changes. 2. No evidence of acute obstructive uropathy. 3. Small bilateral benign-appearing cysts. Abdomen/Pelvis CT 02/02/18 00:00 CONCLUSION: 1. No acute abnormalities are seen in the abdomen or pelvis. 2. Mildly atrophic left kidney with vascular calcifications. 3. Aortoiliac atherosclerosis. No aneurysm. 4. Cholelithiasis. 5. Bilateral small pleural effusions and mild to moderate basilar atelectasis. 6. Coronary artery calcification. 7. Nonspecific mass of the visualized left breast. Last mammogram in our system was 2012. Up-to-date bilateral mammography with a diagnostic left breast mammogram recommended. Chest X-Ray 02/06/18 06:00 CONCLUSION: Interval extubation. Stable aeration. Head MRI 02/10/18 10:53 CONCLUSION: 1. No acute findings. No recent infarct identified. Discharge Plan - Discharge Disposition Patient Disposition: Discharge to SNF - Discharge Condition Condition: Stable - Discharge Order Discharge Orders: Discharge Order (Routine); Ordered 02/18/18 Ordered By: Parmjit Rivers - Discharge Details Anticipated Discharge Date: 02/28/18 - Physicians Team Primary Care Provider: Pavithra Carbone Attending Provider: Dario Wolff Other Providers: Sirena Pack ; Kerrie Macias MD ; Ilia Pimentel MD ; Nicolle Conrad MD ; Veronica Ro MD ; Sina Courtney MD ; Eliud Celaya MD ; [facility]ency ; [facility] ; [facility] ; [facility] ; [facility] ; [facility],Agency
[2018-02-28] MEDS: QUEtiapine 25 MG Tablet PO SCH (21:46)
[2018-02-28] MEDS: ALPRAZolam 0.5 MG Tablet PO PRN (22:03)
[2018-03-01] MEDS ORDERED: Insulin Detemir Inj 1,000 UNIT/10 ML Vial SQ SCH ×2 (08:43→21:00)
--- NOTE | 2018-03-01 08:43 | P.PNIM ---
Subjective Interval history: Note from encounter 02/28/18 The pt was feeling well. She was looking forward to being discharged. She said she is normally on 40 units of long-acting insulin each night. Physical Exam Vital signs: Vital Signs 02/28/18 12:00 02/28/18 16:00 02/28/18 20:00 Temperature 98.1 F 97.7 F 97.7 F Pulse Rate 81 74 100 H Respiratory Rate 18 18 18 Blood Pressure 132/60 145/74 H 129/89 Pulse Oximetry 97 98 97 02/28/18 21:46 03/01/18 00:00 03/01/18 04:00 Temperature 98.1 F 97.9 F Pulse Rate 98 H 102 H Respiratory Rate 16 15 Blood Pressure 108/74 112/68 Pulse Oximetry 97 95 97 03/01/18 08:00 Temperature 97.4 F L Pulse Rate 70 Respiratory Rate 18 Blood Pressure 130/75 Pulse Oximetry 95 Intake & Output 02/28/18 03/01/18 03/01/18 18:59 06:59 18:59 Intake Total 480 / 480 240 / 240 Balance 480 / 480 240 / 240 Weight 72.4 kg Intake: Oral 480 / 480 240 / 240 Other: # Voids 2 3 Date of Last Bowel Movement 02/27/18 # Bowel Movements 0 Narrative: GENERAL: This is a well-nourished, well-developed patient, in no apparent distress. CARDIOVASCULAR: Regular rate and rhythm without murmurs, gallops, or rubs. RESPIRATORY: Clear to auscultation. Breath sounds equal bilaterally. No wheezes , rales, or rhonchi. GASTROINTESTINAL: Abdomen soft, non-tender, nondistended. Normal active bowel sounds MUSCULOSKELETAL: Extremities without clubbing, cyanosis, or edema. NEURO: Alert & Oriented x4 to person, place, time, situation. Moves all ext x4 - Urinary Catheter Management Indwelling Temp Sensing Catheter Cath placed during this visit: no Urethral indwelling: Yes Reason for continuing: Hourly intake/output Results - Labs CBC & Chem 7: 02/20/18 06:08 02/27/18 07:34 Laboratory Results - last 24 hr 02/28/18 02/28/18 02/28/18 12:41 17:25 21:45 POC Glucose 195 H 128 H 140 H - Procedures None Assessment and Plan - Assessment (1) Non-ST elevated myocardial infarction (non-STEMI) Code(s): I21.4 - Non-ST elevation (NSTEMI) myocardial infarction Status: Acute (2) Type 2 diabetes mellitus Code(s): E11.9 - Type 2 diabetes mellitus without complications Status: Chronic (3) Frail elderly Code(s): R54 - Age-related physical debility Status: Acute - Plan Acute myocardial infarction -Status post PCI with LAD stent (LUZMARIA) 02/03/[address] Peralta -Continue ASA/Plavix/Statin -Continue management per cardiology, recs appreciated. Ischemic cardiomyopathy -Continue beta-blockers metoprolol 50 mg p.o. 2 times daily, enalapril 10 mg twice daily -Repeat echo February 06, 2018 with EF of 30% -Continue medications as per cardiology Atrial fibrillation -Currently rate controlled -Continue metoprolol 50mg BID -Currently on DAPT and subcu heparin, if A. fib persists may need full anticoagulation -Holding off on anticoagulation for now due to fall risk. Follow with cardiology as outpatient. Continue current medication regimen. Acute kidney injury -continue to hold diuretics and RHETT inhibitors. Diabetes mellitus, poorly controlled -Currently on medium correction sliding scale insulin protocol -Increased Levemir to 20 units BID (normally on 40 units HS) and diabetic diet. UTI , ESBL + organism -Completed ertapenem 02/18; discontinued midline catheter. Knee pain Chronic. -Tramadol as needed. Improved. PPx: Heparin Discharge Planning: Awaiting placement
[2018-03-01] MEDS: Famotidine PF Inj 20 MG/2 ML Vial IV.PUSH SCH ×2 (08:56→21:17)
[2018-03-01] MEDS: Chlorhexidine 0.12% Oral Kit 15 ML UDC OROPHARYNG SCH ×2 (08:56→21:15)
[2018-03-01] MEDS: Metoprolol Tartrate 25 MG Tablet PO SCH ×2 (08:56→21:16)
[2018-03-01] MEDS: Insulin NovoLOG Aspart Correctional Sugar Inj SQ SCH ×4 (08:56→21:15)
[2018-03-01] MEDS: Heparin - SQ 10,000 UNITS/ML Vial SQ SCH ×3 (08:57→21:16)
--- NOTE | 2018-03-01 14:51 | P.PNIM ---
Subjective Interval history: The pt was sitting up in a chair. Her friend was at the bedside. The patient had no acute complaints. She said that she was waiting for arrangements to be made for placement. Discussed with nursing. Physical Exam Vital signs: Vital Signs 02/28/18 16:00 02/28/18 20:00 02/28/18 21:46 Temperature 97.7 F 97.7 F Pulse Rate 74 100 H Respiratory Rate 18 18 Blood Pressure 145/74 H 129/89 Pulse Oximetry 98 97 97 03/01/18 00:00 03/01/18 04:00 03/01/18 08:00 Temperature 98.1 F 97.9 F 97.4 F L Pulse Rate 98 H 102 H 70 Respiratory Rate 16 15 18 Blood Pressure 108/74 112/68 130/75 Pulse Oximetry 95 97 95 03/01/18 12:00 03/01/18 12:19 Temperature 98.1 F Pulse Rate 72 Respiratory Rate 18 Blood Pressure 115/68 Pulse Oximetry 95 95 Intake & Output 02/28/18 03/01/18 03/01/18 18:59 06:59 18:59 Intake Total 480 / 480 240 / 240 Balance 480 / 480 240 / 240 Weight 72.4 kg Intake: Oral 480 / 480 240 / 240 Other: # Voids 2 3 Date of Last Bowel Movement 02/27/18 # Bowel Movements 0 Narrative: GENERAL: This is a well-nourished, well-developed patient, in no apparent distress. CARDIOVASCULAR: Regular rate and rhythm without murmurs, gallops, or rubs. RESPIRATORY: Clear to auscultation. Breath sounds equal bilaterally. No wheezes , rales, or rhonchi. GASTROINTESTINAL: Abdomen soft, non-tender, nondistended. Normal active bowel sounds MUSCULOSKELETAL: Extremities without clubbing, cyanosis, or edema. NEURO: Alert & Oriented x4 to person, place, time, situation. Moves all ext x4 - Urinary Catheter Management Indwelling Temp Sensing Catheter Cath placed during this visit: no Urethral indwelling: Yes Reason for continuing: Hourly intake/output Results - Labs CBC & Chem 7: 02/20/18 06:08 02/27/18 07:34 Laboratory Results - last 24 hr 02/28/18 02/28/18 03/01/18 17:25 21:45 12:11 POC Glucose 128 H 140 H 187 H - Procedures None Assessment and Plan - Assessment (1) Non-ST elevated myocardial infarction (non-STEMI) Code(s): I21.4 - Non-ST elevation (NSTEMI) myocardial infarction Status: Acute (2) Type 2 diabetes mellitus Code(s): E11.9 - Type 2 diabetes mellitus without complications Status: Chronic (3) Frail elderly Code(s): R54 - Age-related physical debility Status: Acute - Plan Acute myocardial infarction -Status post PCI with LAD stent ([facility]) 02/03/[address] Peralta -Continue ASA/Plavix/Statin -Continue management per cardiology, recs appreciated. Ischemic cardiomyopathy -Continue beta-blockers metoprolol 50 mg p.o. 2 times daily, enalapril 10 mg twice daily -Repeat echo February 06, 2018 with EF of 30% -Continue medications as per cardiology Atrial fibrillation -Currently rate controlled -Continue metoprolol 50mg BID -Currently on DAPT and subcu heparin, if A. fib persists may need full anticoagulation -Holding off on anticoagulation for now due to fall risk. Follow with cardiology as outpatient. Continue current medication regimen. Acute kidney injury -continue to hold diuretics and RHETT inhibitors. Diabetes mellitus, poorly controlled -Currently on medium correction sliding scale insulin protocol -Increased Levemir to 20 units daily, 15 units HS (normally on 40 units HS) and diabetic diet. UTI , ESBL + organism -Completed ertapenem 02/18; discontinued midline catheter. Knee pain Chronic. -Tramadol as needed. Seems resolved. -PT. PPx: Heparin Discharge Planning: Awaiting placement.
[2018-03-01] MEDS: QUEtiapine 25 MG Tablet PO SCH (21:16)
[2018-03-01] MEDS: ALPRAZolam 0.5 MG Tablet PO PRN (21:27)
[2018-03-02] MEDS: Heparin - SQ 10,000 UNITS/ML Vial SQ SCH ×3 (05:32→21:04)
[2018-03-02] MEDS: Insulin NovoLOG Aspart Correctional Sugar Inj SQ SCH ×4 (08:35→20:22)
[2018-03-02] MEDS ORDERED: Insulin Detemir Inj 1,000 UNIT/10 ML Vial SQ SCH ×2 (09:00→21:00)
[2018-03-02] MEDS: Chlorhexidine 0.12% Oral Kit 15 ML UDC OROPHARYNG SCH ×2 (09:18→20:13)
[2018-03-02] MEDS: Famotidine PF Inj 20 MG/2 ML Vial IV.PUSH SCH ×2 (09:19→20:14)
[2018-03-02] MEDS: Metoprolol Tartrate 25 MG Tablet PO SCH ×2 (09:19→20:13)
--- NOTE | 2018-03-02 13:30 | P.PNIM ---
Subjective Interval history: Follow-up cardiomyopathy, acute [place], A. fib, acute kidney injury, UTI, diabetes mellitus type 2. Patient seen and examined sitting in the chair, denies any pain or shortness of breath,. Patient denies any chest pain, abdominal pain, nausea, vomiting, diarrhea or constipation. Patient states that she is doing better however complain of her diet stated her blood sugar is elevated here however while at home her blood sugars more controlled. She stated that she is on a diabetic diet at home. Patient states that she is on insulin Lantus at 40 units twice a day at home. And her blood sugars never been above 200. Discussed with nursing change diet to diabetic with cardiac diet. And adjust insulin dose. Physical Exam Vital signs: Vital Signs 03/01/18 16:00 03/01/18 17:48 03/01/18 20:00 Temperature 98.1 F 98 F Pulse Rate 96 H 110 H Respiratory Rate 18 18 Blood Pressure 125/81 145/89 H Pulse Oximetry 99 99 94 L 03/02/18 00:00 03/02/18 04:00 03/02/18 08:00 Temperature 97.8 F 98.2 F 98 F Pulse Rate 76 84 73 Respiratory Rate 16 15 18 Blood Pressure 149/70 H 138/80 134/72 Pulse Oximetry 96 94 L 99 03/02/18 12:00 Temperature 98.1 F Pulse Rate 110 H Respiratory Rate 18 Blood Pressure 127/84 Pulse Oximetry 95 Intake & Output 03/01/18 03/02/18 03/02/18 18:59 06:59 18:59 Intake Total 480 / 480 240 / 240 Balance 480 / 480 240 / 240 Weight 72.8 kg Intake: Oral 480 / 480 240 / 240 Other: # Voids 6 2 Date of Last Bowel Movement 02/27/18 # Bowel Movements 1 Narrative: GENERAL: Well-developed, well-nourished female sitting in the chair in no apparent distress SKIN: Warm and dry. HEAD: Atraumatic. Normocephalic. EYES: Pupils equal and round. No scleral icterus. No injection or drainage. ENT: No nasal bleeding or discharge. Mucous membranes pink and moist. NECK: Trachea midline. No JVD. CARDIOVASCULAR: Regular rate and rhythm. RESPIRATORY: No accessory muscle use. Clear to auscultation. Breath sounds equal bilaterally. GASTROINTESTINAL: Abdomen soft, non-tender, nondistended. Hepatic and splenic margins not palpable. MUSCULOSKELETAL: Extremities without clubbing, cyanosis, or edema. No obvious deformities. NEUROLOGICAL: Awake and alert and oriented x4. No obvious cranial nerve deficits. Motor grossly within normal limits. Generalized weakness moving all 4 extremities normal speech. PSYCHIATRIC: Appropriate mood and affect; insight and judgment normal. GENERAL: This is a well-nourished, well-developed patient, in no apparent distress. CARDIOVASCULAR: Regular rate and rhythm without murmurs, gallops, or rubs. RESPIRATORY: Clear to auscultation. Breath sounds equal bilaterally. No wheezes , rales, or rhonchi. GASTROINTESTINAL: Abdomen soft, non-tender, nondistended. Normal active bowel sounds MUSCULOSKELETAL: Extremities without clubbing, cyanosis, or edema. NEURO: Alert & Oriented x4 to person, place, time, situation. Moves all ext x4 - Urinary Catheter Management Indwelling Temp Sensing Catheter Cath placed during this visit: no Urethral indwelling: Yes Reason for continuing: Hourly intake/output Results - Labs CBC & Chem 7: 02/20/18 06:08 02/27/18 07:34 Laboratory Results - last 24 hr 03/01/18 03/01/18 03/02/18 17:31 21:15 08:03 POC Glucose 223 H 197 H 83 03/02/18 11:52 POC Glucose 223 H - Procedures None Assessment and Plan - Assessment (1) Non-ST elevated myocardial infarction (non-STEMI) Code(s): I21.4 - Non-ST elevation (NSTEMI) myocardial infarction Status: Acute (2) Type 2 diabetes mellitus Code(s): E11.9 - Type 2 diabetes mellitus without complications Status: Chronic (3) Frail elderly Code(s): R54 - Age-related physical debility Status: Acute - Plan This is an 87-year-old female with a history of diabetes, anxiety, depression, history of rectal cancer in remission, CAD status post PCI, recent admission on 01/28 for non-ST elevation [place] discharged on 01/29 Acute myocardial infarction -Status post PCI with LAD stent ([facility]) 02/03/[address] Peralta -Continue ASA/Plavix/Statin -Continue management per cardiology, recs appreciated. -No chest pain no shortness of breath -Continue Plavix, metoprolol, Lipitor and aspirin Ischemic cardiomyopathy -Continue beta-blockers metoprolol 50 mg p.o. 2 times daily -Repeat echo February 06, 2018 with EF of 30% -Continue medications as per cardiology Atrial fibrillation -Currently rate controlled -Continue metoprolol 50mg BID -Currently on DAPT and subcu heparin, if A. fib persists may need full anticoagulation -Holding off on anticoagulation for now due to fall risk. Follow with cardiology as outpatient. Continue current medication regimen. Acute kidney injury -continue to hold diuretics and RHETT inhibitors. -Avoid nephrotoxins -Monitor BMP Diabetes mellitus, poorly controlled monitor Blood sugar AC and HS, cover with sliding scale -Currently on medium correction sliding scale insulin protocol -Increased Levemir to 22 units daily, 18 units HS (normally on 40 units HS) -add diabetic diet/cardiac diet UTI ESBL + organism -Completed ertapenem 02/18; discontinued midline catheter monitor signs and symptoms Knee pain Chronic. -Tramadol as needed. Seems resolved. -PT. PPx: Heparin Code Status: Full code Discussed Condition With: Patient, nurse, MDR Discharge Planning: Plan to discharge to SNF when placement available
[2018-03-02] MEDS: QUEtiapine 25 MG Tablet PO SCH (20:14)
[2018-03-02] MEDS: ALPRAZolam 0.5 MG Tablet PO PRN (20:14)
[2018-03-03] MEDS: Heparin - SQ 10,000 UNITS/ML Vial SQ SCH ×3 (05:14→21:00)
[2018-03-03] MEDS: Insulin NovoLOG Aspart Correctional Sugar Inj SQ SCH ×4 (07:40→20:56)
[2018-03-03] MEDS: Chlorhexidine 0.12% Oral Kit 15 ML UDC OROPHARYNG SCH ×2 (07:41→20:54)
[2018-03-03] MEDS ORDERED: Insulin Detemir Inj 1,000 UNIT/10 ML Vial SQ SCH ×2 (09:00→16:00)
[2018-03-03] MEDS: Famotidine 20 MG Tablet PO SCH ×2 (09:17→20:55)
[2018-03-03] MEDS: Metoprolol Tartrate 25 MG Tablet PO SCH ×2 (09:18→20:55)
[2018-03-03] MEDS ORDERED: Metoprolol Tartrate 25 MG Tablet PO ONE (13:30)
--- NOTE | 2018-03-03 15:41 | P.PNIM ---
Subjective Interval history: Follow-up for cardiomyopathy, acute [place], A. fib, acute kidney injury, UTI, diabetes mellitus type 2. Patient seen and examined sitting in the chair, denies any discomfort or any complaints other than the food. Stated she is getting too much carbohydrates, much potato. Patient stated her blood sugar at home is better, and was taking Lantus 40 units at night. However discuss his blood sugar is low in the morning. Will adjust Lantus as necessary.. Patient denies any headache or dizziness, chest pain or shortness of breath, abdominal pain, nausea, vomiting, diarrhea or constipation. Patient denies any fever or chills. Nurse reported no acute issues overnight. Disc discussed discharge planning with social services assistant, awaiting for placement. Physical Exam Vital signs: Vital Signs 03/02/18 16:00 03/02/18 20:00 03/03/18 00:00 Temperature 97.7 F 98.6 F Pulse Rate 75 78 Respiratory Rate 18 16 14 Blood Pressure 149/66 H 116/66 Pulse Oximetry 98 100 03/03/18 04:00 03/03/18 08:00 03/03/18 12:00 Temperature 97.8 F 98 F 97.6 F Pulse Rate 75 81 93 H Respiratory Rate 16 18 18 Blood Pressure 152/70 H 163/80 H 151/71 H Pulse Oximetry 99 97 98 03/03/18 13:17 Temperature Pulse Rate Respiratory Rate Blood Pressure Pulse Oximetry 98 Intake & Output 03/02/18 03/03/18 03/03/18 18:59 06:59 18:59 Intake Total 960 / 960 Balance 960 / 960 Weight 73.9 kg Intake: Oral 960 / 960 Other: # Voids 3 Date of Last Bowel Movement 03/03/18 # Bowel Movements 0 Narrative: GENERAL: Well-developed, well-nourished female sitting in the chair in no apparent distress SKIN: Warm and dry. HEAD: Atraumatic. Normocephalic. EYES: Pupils equal and round. No scleral icterus. No injection or drainage. ENT: No nasal bleeding or discharge. Mucous membranes pink and moist. NECK: Trachea midline. No JVD. CARDIOVASCULAR: Regular rate and rhythm. RESPIRATORY: No accessory muscle use. Clear to auscultation. Breath sounds equal bilaterally. GASTROINTESTINAL: Abdomen soft, non-tender, nondistended. Hepatic and splenic margins not palpable. MUSCULOSKELETAL: Extremities without clubbing, cyanosis, or edema. No obvious deformities. NEUROLOGICAL: Awake and alert and oriented x4. No obvious cranial nerve deficits. Motor grossly within normal limits. Generalized weakness moving all 4 extremities normal speech. PSYCHIATRIC: Appropriate mood and affect; insight and judgment normal. GENERAL: This is a well-nourished, well-developed patient, in no apparent distress. CARDIOVASCULAR: Regular rate and rhythm without murmurs, gallops, or rubs. RESPIRATORY: Clear to auscultation. Breath sounds equal bilaterally. No wheezes , rales, or rhonchi. GASTROINTESTINAL: Abdomen soft, non-tender, nondistended. Normal active bowel sounds MUSCULOSKELETAL: Extremities without clubbing, cyanosis, or edema. NEURO: Alert & Oriented x4 to person, place, time, situation. Moves all ext x4 - Urinary Catheter Management Indwelling Temp Sensing Catheter Cath placed during this visit: no Urethral indwelling: Yes Reason for continuing: Hourly intake/output Results - Labs CBC & Chem 7: 02/20/18 06:08 02/27/18 07:34 Laboratory Results - last 24 hr 03/02/18 03/02/18 03/03/18 16:55 20:18 07:31 POC Glucose 201 H 200 H 66 L 03/03/18 03/03/18 08:44 11:41 POC Glucose 84 198 H - Procedures None Assessment and Plan - Assessment (1) Non-ST elevated myocardial infarction (non-STEMI) Code(s): I21.4 - Non-ST elevation (NSTEMI) myocardial infarction Status: Acute (2) Type 2 diabetes mellitus Code(s): E11.9 - Type 2 diabetes mellitus without complications Status: Chronic (3) Frail elderly Code(s): R54 - Age-related physical debility Status: Acute - Plan This is an 87-year-old female with a history of diabetes, anxiety, depression, history of rectal cancer in remission, CAD status post PCI, recent admission on 01/28 for non-ST elevation [place] discharged on 01/29 Acute myocardial infarction Ischemic cardiomyopathy -Status post PCI with LAD stent ([facility]) 02/03/[address] Peralta -Continue ASA/Plavix/Statin -Continue management per cardiology, recs appreciated. -Continue Plavix, metoprolol, Lipitor and aspirin -No chest pain no shortness of breath -Repeat echo February 06, 2018 with EF of 30% -Continue medications as per cardiology Atrial fibrillation - rate controlled -Continue metoprolol 50mg BID -Currently on subcu heparin, if A. fib persists may need full anticoagulation -Holding off on anticoagulation for now due to fall risk. -Follow with cardiology as outpatient. Continue current medication regimen. Acute kidney injury -continue to hold diuretics and RHETT inhibitors. -Avoid nephrotoxins -Monitor BMP Diabetes mellitus, poorly controlled -Hemoglobin A1c 7.8% -monitor Blood sugar AC and HS, cover with sliding scale -Currently on medium correction sliding scale insulin protocol -adjust dose of Levemir to 24 units daily, decrease Lantus at at bedtime to 16 units blood sugar low in a.m., patient admitted did not eat dinner last night encourage patient to take bedtime snack -continue diabetic diet/cardiac diet UTI ESBL + organism -Completed ertapenem 02/18; discontinued midline catheter -monitor signs and symptoms Knee pain Chronic, improved -Tramadol as needed. Seems resolved. -PT rehab per protocol DVT PPx: Heparin Code Status: full code Discussed Condition With: patient and nurse Discharge Planning: Plan to discharge to SNF when placement available
[2018-03-03] MEDS: ALPRAZolam 0.5 MG Tablet PO PRN (20:55)
[2018-03-03] MEDS: QUEtiapine 25 MG Tablet PO SCH (20:55)
[2018-03-03] MEDS: Insulin Detemir Inj 1,000 UNIT/10 ML Vial SQ SCH (20:56)
[2018-03-04] MEDS: Heparin - SQ 10,000 UNITS/ML Vial SQ SCH ×3 (05:59→21:46)
[2018-03-04 07:35] LABS: Eos # (Auto) 0.2 th/mm3 (0.0-0.4); Eos % (Auto) 4.2 % (0.0-4.0); Hematocrit 32.1 % (35.0-46.0); Hemoglobin 10.5 gm/dL (11.6-15.3); Lymph % (Auto) 22.6 % (9.0-44.0); Mean Corpuscular HGB Conc 32.8 % (32.0-36.0); Mean Corpuscular Hemoglobin 28.6 pg (27.0-34.0); Mean Corpuscular Volume 87.3 fL (80.0-100.0); Mean Platelet Volume 10.2 fL (7.0-11.0); Mono # (Auto) 0.4 th/mm3 (0.0-0.9); Mono % (Auto) 9.5 % (0.0-8.0); Neut # (Auto) 2.7 th/mm3 (1.8-7.7); Neut % (Auto) 62.7 % (16.0-70.0); Platelet Count 151 th/mm3 (150-450); Red Blood Count 3.68 mil/mm3 (4.00-5.30); Red Cell Distribution Width 16.8 % (11.6-17.2); White Blood Count 4.2 th/mm3 (4.0-11.0)
[2018-03-04 08:01] LABS: Calcium 8.8 mg/dL (8.5-10.1); Carbon Dioxide 23.4 meq/L (21.0-32.0); Potassium 4.1 meq/L (3.5-5.1)
[2018-03-04] MEDS ORDERED: Insulin Detemir Inj 1,000 UNIT/10 ML Vial SQ SCH (09:00)
[2018-03-04] MEDS: Insulin NovoLOG Aspart Correctional Sugar Inj SQ SCH ×4 (09:31→20:24)
[2018-03-04] MEDS: Metoprolol Tartrate 25 MG Tablet PO SCH ×2 (09:32→20:23)
[2018-03-04] MEDS: Famotidine 20 MG Tablet PO SCH ×2 (09:32→20:23)
[2018-03-04] MEDS: Chlorhexidine 0.12% Oral Kit 15 ML UDC OROPHARYNG SCH ×2 (09:32→20:27)
--- NOTE | 2018-03-04 16:24 | P.PNIM ---
Subjective Interval history: Follow-up for cardiomyopathy, acute [place], A. fib, acute kidney injury, UTI, diabetes mellitus type 2. Patient seen and examined sitting in her chair, stated feeling better denies any chest pain or shortness of breath, denies any headache or dizziness. Patient stated eating well, and sleeping well. Patient denies any abdominal pain, nausea, vomiting, diarrhea or constipation. Patient stated to have good bowel movement. Patient states that she came in for a heart attack x2. Discussed discharge planning patient stated her son lives down [facility] and her granddaughter lives in [place] to a neurosurgeon. Nurse denies any acute concerns overnight Discharge planning discussed with renal social worker Physical Exam Vital signs: Vital Signs 03/03/18 20:00 03/04/18 00:00 03/04/18 04:00 Temperature 97.4 F L 97.9 F 97.9 F Pulse Rate 88 75 64 Respiratory Rate 18 18 17 Blood Pressure 156/86 H 116/71 120/60 Pulse Oximetry 97 99 94 L 03/04/18 08:00 03/04/18 12:00 Temperature 97.7 F 98.3 F Pulse Rate 91 H 91 H Respiratory Rate 18 18 Blood Pressure 112/66 133/76 Pulse Oximetry 95 99 Intake & Output 03/03/18 03/04/18 03/04/18 18:59 06:59 18:59 Intake Total 960 / 960 Balance 960 / 960 Intake: Oral 960 / 960 Other: # Voids 3 Date of Last Bowel Movement 03/03/18 # Bowel Movements 1 Narrative: GENERAL: Well-developed, well-nourished female sitting in the chair in no apparent distress SKIN: Warm and dry. HEAD: Atraumatic. Normocephalic. EYES: Pupils equal and round. No scleral icterus. No injection or drainage. ENT: No nasal bleeding or discharge. Mucous membranes pink and moist. NECK: Trachea midline. No JVD. CARDIOVASCULAR: Regular rate and rhythm. RESPIRATORY: No accessory muscle use. Clear to auscultation. Breath sounds equal bilaterally. GASTROINTESTINAL: Abdomen soft, non-tender, nondistended. Hepatic and splenic margins not palpable. MUSCULOSKELETAL: Extremities without clubbing, cyanosis, or edema. No obvious deformities. NEUROLOGICAL: Awake and alert and oriented x4. No obvious cranial nerve deficits. Motor grossly within normal limits. Generalized weakness moving all 4 extremities normal speech. PSYCHIATRIC: Appropriate mood and affect; insight and judgment normal. GENERAL: This is a well-nourished, well-developed patient, in no apparent distress. CARDIOVASCULAR: Regular rate and rhythm without murmurs, gallops, or rubs. RESPIRATORY: Clear to auscultation. Breath sounds equal bilaterally. No wheezes , rales, or rhonchi. GASTROINTESTINAL: Abdomen soft, non-tender, nondistended. Normal active bowel sounds MUSCULOSKELETAL: Extremities without clubbing, cyanosis, or edema. NEURO: Alert & Oriented x4 to person, place, time, situation. Moves all ext x4 - Urinary Catheter Management Indwelling Temp Sensing Catheter Cath placed during this visit: no Urethral indwelling: Yes Reason for continuing: Hourly intake/output Results - Labs CBC & Chem 7: 03/04/18 06:55 03/04/18 06:55 Laboratory Results - last 24 hr 03/03/18 03/03/18 03/04/18 17:21 20:54 06:55 WBC 4.2 RBC 3.68 L Hgb 10.5 L Hct 32.1 L MCV 87.3 MCH 28.6 MCHC 32.8 RDW 16.8 Plt Count 151 MPV 10.2 Neut % (Auto) 62.7 Lymph % (Auto) 22.6 [place] % (Auto) 9.5 H Eos % (Auto) 4.2 H Baso % (Auto) 1.0 Neut # (Auto) 2.7 Lymph # (Auto) 1.0 [place] # (Auto) 0.4 Eos # (Auto) 0.2 Baso # (Auto) 0.0 WBC Differential . Differential Comment Auto diff final Sodium Potassium Chloride Carbon Dioxide Anion Gap BUN Creatinine Estimated GFR POC Glucose 202 H 217 H Random Glucose Calcium 03/04/18 03/04/18 03/04/18 06:55 08:20 11:46 WBC RBC Hgb Hct MCV MCH MCHC RDW Plt Count MPV Neut % (Auto) Lymph % (Auto) [place] % (Auto) Eos % (Auto) Baso % (Auto) Neut # (Auto) Lymph # (Auto) [place] # (Auto) Eos # (Auto) Baso # (Auto) WBC Differential Differential Comment Sodium 142 Potassium 4.1 Chloride 112 H Carbon Dioxide 23.4 Anion Gap 7 BUN 32 H Creatinine 1.26 H Estimated GFR 40 L POC Glucose 126 H 189 H Random Glucose 106 Calcium 8.8 - Procedures None Assessment and Plan - Assessment (1) Non-ST elevated myocardial infarction (non-STEMI) Code(s): I21.4 - Non-ST elevation (NSTEMI) myocardial infarction Status: Acute (2) Type 2 diabetes mellitus Code(s): E11.9 - Type 2 diabetes mellitus without complications Status: Chronic (3) Frail elderly Code(s): R54 - Age-related physical debility Status: Acute - Plan This is an 87-year-old female with a history of diabetes, anxiety, depression, history of rectal cancer in remission, CAD status post PCI, recent admission on 01/28 for non-ST elevation [place] discharged on 01/29 Acute myocardial infarction Ischemic cardiomyopathy -Status post PCI with LAD stent ([facility]) 02/03/[address] Peralta -Continue ASA/Plavix/Statin -Continue management per cardiology, recs appreciated. -Continue Plavix, metoprolol, Lipitor and aspirin -No chest pain no shortness of breath -Repeat 2D echo February 06, 2018 with EF of 30% -Continue medications as per cardiology Atrial fibrillation - rate controlled -Continue metoprolol 50mg BID -Currently on subcu heparin, if A. fib persists may need full anticoagulation -Holding off on anticoagulation for now due to fall risk. -Follow with cardiology as outpatient. Continue current medication regimen. Acute kidney injury -continue to hold diuretics and RHETT inhibitors. -Avoid nephrotoxins -Monitor BMP Diabetes mellitus, poorly controlled -Hemoglobin A1c 7.8% -monitor Blood sugar AC and HS, cover with sliding scale -Currently on medium correction sliding scale insulin protocol -adjust dose of Levemir to 26 units daily, continue Lantus 16 units at bedtime , encourage patient to take bedtime snack and not skipping meals -continue diabetic diet/cardiac diet UTI ESBL + organism -Completed ertapenem 02/18; discontinued midline catheter -monitor signs and symptoms Knee pain Chronic, improved -Tramadol as needed. Seems resolved. -PT rehab per protocol DVT PPx: Heparin Code Status: Full code Discussed Condition With: Patient and nurse business and services instructor Discharge Planning: Plan to discharge to SNF when placement available
--- NOTE | 2018-03-04 16:39 | P.PNPAL ---
Reason for Visit Reason for visit: a. To assist with evaluation and management of symptoms including: confusion, anxiety b. To assist medical decision maker(s) with: better understanding of current medical conditions; weighing benefits/burdens of medical treatment options; making medical treatment decisions. Subjective Subjective/Interval History: This is an 87-year-old female with a past medical history of diabetes, hypertension, rectal cancer in remission, anxiety, depression, coronary artery disease status post stent, former smoker who presented to the emergency department 01/31/2018 plane of chest pain, substernal, pressure, nonradiating, persistent, which resolved with aspirin and sublingual nitro given to her by EMS. She had taken a Xanax earlier to try and help her sleep. Her presenting troponin was 1.25 did she had been seen in the ED on 01/28 and had troponin levels of 0.11, 0.96, 1.08. She was diagnosed with a non-STEMI and seen by cardiology. Cardiac catheterization was held secondary to renal insufficiency. Nephrology consultation was requested for further evaluation. Patient seen for follow-up of symptom management for confusion and anxiety and to assist family in goals of medical treatment. Patient is less confused, recognized me, sitting up in a chair. Her confusion is intermittent, waxes and wanes, mild, expresses as forgetfulness, improved since admission, but would not be able to live alone at this time. Patient complains of anxiety, stating she does not wish to be alone. She is hoping that "someone will be here all night". She does not seem to be oriented to the fact that she is in a hospital full of people that is staffed 23/10. She has Xanax 0.5 mg available and takes approximately 1 dose daily. . Family/Friend Interactions: Spoke with her granddaughter Treva to review further discharge plans. Patient's ambulation in the hallways with a rolling walker and standby assist has now reached over 200 feet and Sirena had refused rehabilitative services Sunday. Discussed with her granddaughter the possibility of placing her in an NURSING HOME. The daughter wishes to discuss this with family prior to proceeding. . Advance Directives Living Will: Copy in medical record Health Care Surrogate: Copy in medical record Health Care Surrogate Name and Number: Treva Arvizu Objective Vital Signs: Vital Signs 03/03/18 20:00 03/04/18 00:00 03/04/18 04:00 Temperature 97.4 F L 97.9 F 97.9 F Pulse Rate 88 75 64 Respiratory Rate 18 18 17 Blood Pressure 156/86 H 116/71 120/60 Pulse Oximetry 97 99 94 L 03/04/18 08:00 03/04/18 12:00 Temperature 97.7 F 98.3 F Pulse Rate 91 H 91 H Respiratory Rate 18 18 Blood Pressure 112/66 133/76 Pulse Oximetry 95 99 Intake & Output 03/03/18 03/04/18 03/04/18 18:59 06:59 18:59 Intake Total 960 / 960 Balance 960 / 960 Intake: Oral 960 / 960 Other: # Voids 3 Date of Last Bowel Movement 03/03/18 # Bowel Movements 1 Physical Exam: CONSTITUTIONAL/GENERAL: This is an adequately nourished patient,upright in a chair, awake, talkative, no distress. TUBES/LINES/DRAINS: PIV UE CARDIOVASCULAR: Irregular rhythm, controlled rate , no murmur. No JVD. Peripheral pulses symmetric. RESPIRATORY/CHEST: Symmetric, unlabored respirations. Clear to auscultation. Breath sounds equal bilaterally. No wheezes, rales, or rhonchi. GASTROINTESTINAL: Abdomen soft, non-tender, nondistended. No hepato-splenomegaly , or palpable masses. No guarding. Bowel sounds present. GENITOURINARY: Without palpable bladder distension. verbalizes need to void during my visit MUSCULOSKELETAL: Extremities without clubbing, cyanosis, or edema. No joint tenderness or effusion noted. No calf tenderness. No mottling or clubbing. Multiple ecchymoses on bilateral upper extremities. NEUROLOGICAL: Alert, oriented to self , family. No focal deficits, follows commands, limited insight, moves all extremities. PSYCHIATRIC: Anxious today. . Diagnostic Tests Laboratory: Laboratory Results - last 72 hr 03/01/18 03/01/18 03/02/18 17:31 21:15 08:03 WBC RBC Hgb Hct MCV MCH MCHC RDW Plt Count MPV Neut % (Auto) Lymph % (Auto) Charlton % (Auto) Eos % (Auto) Baso % (Auto) Neut # (Auto) Lymph # (Auto) Charlton # (Auto) Eos # (Auto) Baso # (Auto) WBC Differential Differential Comment Sodium Potassium Chloride Carbon Dioxide Anion Gap BUN Creatinine Estimated GFR POC Glucose 223 H 197 H 83 Random Glucose Calcium 03/02/18 03/02/18 03/02/18 11:52 16:55 20:18 WBC RBC Hgb Hct MCV MCH MCHC RDW Plt Count MPV Neut % (Auto) Lymph % (Auto) Charlton % (Auto) Eos % (Auto) Baso % (Auto) Neut # (Auto) Lymph # (Auto) Charlton # (Auto) Eos # (Auto) Baso # (Auto) WBC Differential Differential Comment Sodium Potassium Chloride Carbon Dioxide Anion Gap BUN Creatinine Estimated GFR POC Glucose 223 H 201 H 200 H Random Glucose Calcium 03/03/18 03/03/18 03/03/18 07:31 08:44 11:41 WBC RBC Hgb Hct MCV MCH MCHC RDW Plt Count MPV Neut % (Auto) Lymph % (Auto) Charlton % (Auto) Eos % (Auto) Baso % (Auto) Neut # (Auto) Lymph # (Auto) Charlton # (Auto) Eos # (Auto) Baso # (Auto) WBC Differential Differential Comment Sodium Potassium Chloride Carbon Dioxide Anion Gap BUN Creatinine Estimated GFR POC Glucose 66 L 84 198 H Random Glucose Calcium 03/03/18 03/03/18 03/04/18 17:21 20:54 06:55 WBC 4.2 RBC 3.68 L Hgb 10.5 L Hct 32.1 L MCV 87.3 MCH 28.6 MCHC 32.8 RDW 16.8 Plt Count 151 MPV 10.2 Neut % (Auto) 62.7 Lymph % (Auto) 22.6 Charlton % (Auto) 9.5 H Eos % (Auto) 4.2 H Baso % (Auto) 1.0 Neut # (Auto) 2.7 Lymph # (Auto) 1.0 Charlton # (Auto) 0.4 Eos # (Auto) 0.2 Baso # (Auto) 0.0 WBC Differential . Differential Comment Auto diff final Sodium Potassium Chloride Carbon Dioxide Anion Gap BUN Creatinine Estimated GFR POC Glucose 202 H 217 H Random Glucose Calcium 03/04/18 03/04/18 03/04/18 06:55 08:20 11:46 WBC RBC Hgb Hct MCV MCH MCHC RDW Plt Count MPV Neut % (Auto) Lymph % (Auto) Charlton % (Auto) Eos % (Auto) Baso % (Auto) Neut # (Auto) Lymph # (Auto) Charlton # (Auto) Eos # (Auto) Baso # (Auto) WBC Differential Differential Comment Sodium 142 Potassium 4.1 Chloride 112 H Carbon Dioxide 23.4 Anion Gap 7 BUN 32 H Creatinine 1.26 H Estimated GFR 40 L POC Glucose 126 H 189 H Random Glucose 106 Calcium 8.8 Result Diagrams: 03/04/18 06:55 03/04/18 06:55 Imaging: ITS Impressions Abdomen/Bladder Ultrasound 02/02/18 00:00 CONCLUSION: 1. Increased renal echogenicity typical of chronic parenchymal changes. 2. No evidence of acute obstructive uropathy. 3. Small bilateral benign-appearing cysts. Abdomen/Pelvis CT 02/02/18 00:00 CONCLUSION: 1. No acute abnormalities are seen in the abdomen or pelvis. 2. Mildly atrophic left kidney with vascular calcifications. 3. Aortoiliac atherosclerosis. No aneurysm. 4. Cholelithiasis. 5. Bilateral small pleural effusions and mild to moderate basilar atelectasis. 6. Coronary artery calcification. 7. Nonspecific mass of the visualized left breast. Last mammogram in our system was 2012. Up-to-date bilateral mammography with a diagnostic left breast mammogram recommended. Chest X-Ray 02/06/18 06:00 CONCLUSION: Interval extubation. Stable aeration. Head MRI 02/10/18 10:53 CONCLUSION: 1. No acute findings. No recent infarct identified. Procedures: 02/02: Intubation 02/05: Extubation . Assessment and Plan - Disease Oriented Problem List (1) Non-ST elevated myocardial infarction (non-STEMI) (2) Acute kidney injury (3) Type 2 diabetes mellitus (4) Acute hypoxemic respiratory failure (5) Pulmonary edema cardiac cause (6) Acute myocardial infarction (7) Atrial fibrillation (8) Cardiogenic shock - Symptom Scale (4) Confusion 0-10 Scale: 5 (5) Anxiety 0-10 Scale: 6 Pertinent Non-Medical Issues: Psychosocial: She was born in [facility] and lived there most of her life. She was however her passed in 1983. She moved to [place] in the early s. 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 She has 1 son. Spiritual: [employer] available. Legal: Living will on the chart with healthcare surrogate. Ethical issues impacting care: None noted. . Important Contacts: Granddaughter: Treva Arvizu Son: Vicky Arvizu . Prognosis: Her prognosis is guarded. She is of advanced age at 87 and showing signs of decline. In addition to renal insufficiency she has multiple cardiac risk factors to include hypertension, hyperlipidemia, obesity with BMI 30.8 kg/m, diabetes with a hemoglobin A1c 7.8 and evidence of at minimum a non-STEMI. Cardiac catheterization per the tailing hand report would be a high risk/"heroic " procedure. She is also febrile with no known source of infection. Urinalysis has been negative on 01/29 and 01/31, influenza is negative and blood cultures are negative times 1 day. Empiric antibiotic coverage is being initiated as cultures are pending. She is at increased risk of continued hospitalizations, complications and decline. . Code Status: Full Code Plan: Legal decision maker: Patient at this time is confused and not capacitated for decision-making. It is uncertain if she will regain capacity. Living will and healthcare surrogate on the chart name her granddaughter Treva and Treva's brother Gonzalez as joint healthcare surrogate's. Gonzalez is a member of the [employer] currently regarding the president and unavailable. Goals: Aggressive CODE STATUS: FULL CODE SYMPTOMS: * Confusion: Intermittent, waxing and waning, asking if there will be someone in this building tonight, not aware that she is in the hospital. 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 * Anxiety: Anxious when she is alone, receiving Xanax approximately once daily. Receives Seroquel 25 mg p.o. nightly, sleeping better. Would likely do better in a more social environment. Palliative care will continue to follow the patient during hospital course as condition evolves, to assist patient/decision-maker with understanding of their medical conditions, weighing benefits/burdens of treatment options, for clarification of goals of treatment. Additionally will assist with any symptoms of palliative concern. . Attestation Attestation: To help prompt me to consider important information that might be impacting today's encounter and assessment, information from prior notes written by myself or my colleagues may have been "brought forward" into today's note. My signature on this note, however, is an attestation that I personally performed the exam, history, and/or decision-making noted today, and, unless otherwise indicated, the interactions with patient, family, and staff as well as the review of records all occurred today. I also attest that the listed assessment and stated plan reflect my best clinical judgment today based on the combination of historical information, prior notes, and today's exam/ interactions. When time spent is documented, it refers only to time spent today by the signer, or if indicated, combined time spent today by collaborating physician/nurse practitioner. .
[2018-03-04] MEDS: Insulin Detemir Inj 1,000 UNIT/10 ML Vial SQ SCH (20:22)
[2018-03-04] MEDS: ALPRAZolam 0.5 MG Tablet PO PRN (20:23)
[2018-03-04] MEDS: QUEtiapine 25 MG Tablet PO SCH (20:23)
[2018-03-05] MEDS: Heparin - SQ 10,000 UNITS/ML Vial SQ SCH ×3 (05:13→21:00)
[2018-03-05] MEDS: Insulin NovoLOG Aspart Correctional Sugar Inj SQ SCH ×4 (09:05→20:47)
[2018-03-05] MEDS: Chlorhexidine 0.12% Oral Kit 15 ML UDC OROPHARYNG SCH ×2 (09:05→20:46)
[2018-03-05] MEDS: Famotidine 20 MG Tablet PO SCH ×2 (09:06→20:40)
[2018-03-05] MEDS: Insulin Detemir Inj 1,000 UNIT/10 ML Vial SQ SCH ×2 (09:07→20:46)
[2018-03-05] MEDS: Metoprolol Tartrate 25 MG Tablet PO SCH ×2 (09:07→20:41)
--- NOTE | 2018-03-05 19:03 | P.PNIM ---
Subjective Interval history: feels well. says she has been walking with a walker with help from the nursing staff. Physical Exam Vital signs: Last Vital Signs Temp 98.4 F 03/05/18 16:00 Pulse 93 H 03/05/18 16:00 Resp 20 03/05/18 16:00 BP 146/69 H 03/05/18 16:00 Pulse Ox 96 03/05/18 17:31 Intake & Output 03/03/18 03/04/18 03/05/18 03/06/18 06:59 06:59 06:59 06:59 Intake Total 960 / 960 960 / 960 708 / 708 720 / 720 Balance 960 / 960 960 / 960 708 / 708 720 / 720 Weight 73.9 kg 72.6 kg Narrative: GENERAL: pleasant elderly lady, well-developed patient, in no apparent distress. NECK:no JVD CARDIOVASCULAR: Regular rate and rhythm without murmurs, gallops, or rubs. RESPIRATORY: Clear to auscultation. Breath sounds equal bilaterally. No wheezes , rales, or rhonchi. GASTROINTESTINAL: Abdomen soft, non-tender, nondistended. Normal active bowel sounds MUSCULOSKELETAL: Extremities without clubbing, cyanosis, or edema. NEURO: Alert & Oriented x4 to person, place, time, situation. Moves all ext x4 Urinary Catheter Management Indwelling Temp Sensing Catheter: Cath placed during this visit: no Urethral indwelling: Yes Results Labs CBC & Chem 7: 03/04/18 06:55 03/04/18 06:55 Procedures Procedures: None Assessment and Plan Plan 87-year-old female with a history of diabetes, anxiety, depression, history of rectal cancer in remission, CAD status post PCI, recent admission on 01/28 for non-ST elevation [place] discharged on 01/29 03/05--patient remains clinically stable pending placement. Acute myocardial infarction Ischemic cardiomyopathy -Status post PCI with LAD stent (LUZMARIA) 02/03/[address] Peralta -Continue ASA/Plavix/Statin -Continue management per cardiology, recs appreciated. -Continue Plavix, metoprolol, Lipitor and aspirin -No chest pain no shortness of breath -Repeat 2D echo February 06, 2018 with EF of 30% -Continue medications as per cardiology Atrial fibrillation - rate controlled -Continue metoprolol 50mg BID -Currently on subcu heparin, if A. fib persists may need full anticoagulation -Holding off on anticoagulation for now due to fall risk. -Follow with cardiology as outpatient. Continue current medication regimen. Acute kidney injury--creat stable in 1.26 range now -continue to hold diuretics and RHETT inhibitors. -Avoid nephrotoxins -Monitor BMP Diabetes mellitus, poorly controlled -Hemoglobin A1c 7.8% -monitor Blood sugar AC and HS, cover with sliding scale -Currently on medium correction sliding scale insulin protocol -adjust dose of Levemir to 26 units daily, continue Lantus 16 units at bedtime , encourage patient to take bedtime snack and not skipping meals -continue diabetic diet/cardiac diet UTI ESBL + organism -Completed ertapenem 02/18; discontinued midline catheter -monitor signs and symptoms Knee pain Chronic, improved -Tramadol as needed. Seems resolved. -PT rehab per protocol DVT PPx: Heparin Code Status: Full code
[2018-03-05] MEDS: QUEtiapine 25 MG Tablet PO SCH (20:40)
[2018-03-05] MEDS: ALPRAZolam 0.5 MG Tablet PO PRN (20:41)
[2018-03-06] MEDS: Heparin - SQ 10,000 UNITS/ML Vial SQ SCH ×3 (05:22→22:00)
[2018-03-06] MEDS: Famotidine 20 MG Tablet PO SCH ×2 (09:27→20:21)
[2018-03-06] MEDS: Metoprolol Tartrate 25 MG Tablet PO SCH ×2 (09:27→20:18)
[2018-03-06] MEDS: Insulin Detemir Inj 1,000 UNIT/10 ML Vial SQ SCH ×2 (09:28→20:22)
[2018-03-06] MEDS: Insulin NovoLOG Aspart Correctional Sugar Inj SQ SCH ×4 (11:43→20:24)
[2018-03-06] MEDS: Chlorhexidine 0.12% Oral Kit 15 ML UDC OROPHARYNG SCH ×2 (11:44→20:23)
--- NOTE | 2018-03-06 12:20 | P.PNIM ---
Subjective Interval history: feels well. complains that the room is cold. says she is being confined and wants to be able to walk around. Physical Exam Vital signs: Last Vital Signs Temp 97.4 F L 03/06/18 04:00 Pulse 73 03/06/18 04:00 Resp 18 03/06/18 04:00 BP 142/68 H 03/06/18 04:00 Pulse Ox 98 03/06/18 08:59 Intake & Output 03/04/18 03/05/18 03/06/18 03/07/18 06:59 06:59 06:59 06:59 Intake Total 960 / 960 708 / 708 960 / 960 Balance 960 / 960 708 / 708 960 / 960 Weight 72.6 kg 72.6 kg Narrative: GENERAL: pleasant elderly lady, well-developed patient, in no apparent distress. NECK:no JVD CARDIOVASCULAR: Regular rate and rhythm without murmurs, gallops, or rubs. RESPIRATORY: Clear to auscultation. Breath sounds equal bilaterally. No wheezes , rales, or rhonchi. GASTROINTESTINAL: Abdomen soft, non-tender, nondistended. Normal active bowel sounds MUSCULOSKELETAL: Extremities without clubbing, cyanosis, or edema. NEURO: Alert & Oriented x4 to person, place, time, situation. Moves all ext x4 Urinary Catheter Management Indwelling Temp Sensing Catheter: Cath placed during this visit: no Urethral indwelling: Yes Results Labs CBC & Chem 7: 03/04/18 06:55 03/04/18 06:55 Procedures Procedures: None Assessment and Plan Plan 87-year-old female with a history of diabetes, anxiety, depression, history of rectal cancer in remission, CAD status post PCI, recent admission on 01/28 for non-ST elevation [place] discharged on 01/29 03/06--patient remains clinically stable pending placement. Acute myocardial infarction Ischemic cardiomyopathy -Status post PCI with LAD stent (LUZMARIA) 02/03/[address] Peralta -Continue ASA/Plavix/Statin -Continue management per cardiology, recs appreciated. -Continue Plavix, metoprolol, Lipitor and aspirin -No chest pain no shortness of breath -Repeat 2D echo February 06, 2018 with EF of 30% -Continue medications as per cardiology Atrial fibrillation - rate controlled -Continue metoprolol 50mg BID -Currently on subcu heparin, if A. fib persists may need full anticoagulation -Holding off on anticoagulation for now due to fall risk. -Follow with cardiology as outpatient. Continue current medication regimen. Acute kidney injury--creat stable in 1.26 range now -continue to hold diuretics and RHETT inhibitors. -Avoid nephrotoxins -Monitor BMP Diabetes mellitus, poorly controlled -Hemoglobin A1c 7.8% -monitor Blood sugar AC and HS, cover with sliding scale -Currently on medium correction sliding scale insulin protocol -adjust dose of Levemir to 26 units daily, continue Lantus 16 units at bedtime , encourage patient to take bedtime snack and not skipping meals -continue diabetic diet/cardiac diet UTI ESBL + organism -Completed ertapenem 02/18; discontinued midline catheter -monitor signs and symptoms Knee pain Chronic, improved -Tramadol as needed. Seems resolved. -PT rehab per protocol DVT PPx: Heparin Code Status: Full code
[2018-03-06] MEDS: QUEtiapine 25 MG Tablet PO SCH (20:21)
[2018-03-07] MEDS: Heparin - SQ 10,000 UNITS/ML Vial SQ SCH ×3 (06:39→23:01)
[2018-03-07] MEDS: Famotidine 20 MG Tablet PO SCH ×2 (09:12→20:36)
[2018-03-07] MEDS: Metoprolol Tartrate 25 MG Tablet PO SCH ×2 (09:12→20:38)
[2018-03-07] MEDS: Chlorhexidine 0.12% Oral Kit 15 ML UDC OROPHARYNG SCH ×2 (09:13→23:01)
[2018-03-07] MEDS: Insulin NovoLOG Aspart Correctional Sugar Inj SQ SCH ×4 (09:14→20:40)
[2018-03-07] MEDS: Insulin Detemir Inj 1,000 UNIT/10 ML Vial SQ SCH ×2 (09:16→20:39)
--- NOTE | 2018-03-07 17:17 | P.PNIM ---
Subjective Interval history: no complaints. She has been walking on hallway with her walker today. Physical Exam Vital signs: Last Vital Signs Temp 97.1 F L 03/07/18 12:00 Pulse 71 03/07/18 12:00 Resp 18 03/07/18 12:00 BP 146/62 H 03/07/18 12:00 Pulse Ox 94 L 03/07/18 12:00 Intake & Output 03/05/18 03/06/18 03/07/18 03/08/18 06:59 06:59 06:59 06:59 Intake Total 708 / 708 960 / 960 760 / 760 Balance 708 / 708 960 / 960 760 / 760 Weight 72.6 kg 72.6 kg Narrative: Urinary Catheter Management Indwelling Temp Sensing Catheter: Cath placed during this visit: no Urethral indwelling: Yes Results Labs CBC & Chem 7: 03/04/18 06:55 03/04/18 06:55 Procedures Procedures: None Assessment and Plan (1) Acute myocardial infarction: Code(s): I21.9 - Acute myocardial infarction, unspecified Status: Acute Discussed with family at great length yesterday over multiple conversations, time totaling over 90 mins; They want to pursue high-risk cardiac cath/PCI, Dr. Peralta will do today; continue medical mgt. Plan 87-year-old female with a history of diabetes, anxiety, depression, history of rectal cancer in remission, CAD status post PCI, recent admission on 01/28 for non-ST elevation [place] discharged on 01/29 03/07--patient remains clinically stable pending placement. Acute myocardial infarction Ischemic cardiomyopathy -Status post PCI with LAD stent (LUZMARIA) 02/03/[address] Peralta -Continue ASA/Plavix/Statin -Continue management per cardiology, recs appreciated. -Continue Plavix, metoprolol, Lipitor and aspirin -No chest pain no shortness of breath -Repeat 2D echo February 06, 2018 with EF of 30% -Continue medications as per cardiology Atrial fibrillation - rate controlled -Continue metoprolol 50mg BID -Currently on subcu heparin, if A. fib persists may need full anticoagulation -Holding off on anticoagulation for now due to fall risk. -Follow with cardiology as outpatient. Continue current medication regimen. Acute kidney injury--creat stable in 1.26 range now -continue to hold diuretics and RHETT inhibitors. -Avoid nephrotoxins -Monitor BMP Diabetes mellitus, poorly controlled -Hemoglobin A1c 7.8% -monitor Blood sugar AC and HS, cover with sliding scale -Currently on medium correction sliding scale insulin protocol -adjust dose of Levemir to 26 units daily, continue Lantus 16 units at bedtime , encourage patient to take bedtime snack and not skipping meals -continue diabetic diet/cardiac diet UTI ESBL + organism -Completed ertapenem 02/18; discontinued midline catheter -monitor signs and symptoms Knee pain Chronic, improved -Tramadol as needed. Seems resolved. -PT rehab per protocol DVT PPx: Heparin Code Status: Full code _ (1) Acute myocardial infarction Qualifiers: Involved coronary artery: Myocardial infarction type:
[2018-03-07] MEDS: QUEtiapine 25 MG Tablet PO SCH (20:38)
[2018-03-08] MEDS: Heparin - SQ 10,000 UNITS/ML Vial SQ SCH (05:33)
[2018-03-08] MEDS: ALPRAZolam 0.5 MG Tablet PO PRN (05:33)
[2018-03-08 08:41] VITALS: BP 109/59; PULSE 83; RESP 18; TEMP 98; O2SAT 97
[2018-03-08] MEDS: Insulin NovoLOG Aspart Correctional Sugar Inj SQ SCH (08:55)
[2018-03-08] MEDS: Metoprolol Tartrate 25 MG Tablet PO SCH (08:56)
[2018-03-08] MEDS: Insulin Detemir Inj 1,000 UNIT/10 ML Vial SQ SCH (08:56)
[2018-03-08] MEDS: Chlorhexidine 0.12% Oral Kit 15 ML UDC OROPHARYNG SCH (08:56)
[2018-03-08] MEDS: Famotidine 20 MG Tablet PO SCH (08:56)
--- NOTE | 2018-03-08 11:55 | P.DS ---
DS: Providers Date of admission: 01/31/18 03:51 Primary care physician: Pavithra Carbone MD Consults: 01/31/18 03:52 Consult to Cardiology Routine Consulting Provider: Kerrie Macias Does the patient have a Bed And Breakfast Operator who follows them?: Yes Preferred Cutting Table Operator:: Kerrie Macias Reason for Consultation: NSTEMI. Notified:: Service Spoke with:: hollis Date Notified:: 01/31/18 Time Notified:: 06:03 Ordering Provider: JERO 01/31/18 04:08 HUB Only Consult Order Routine Consulting Provider: Sirena Pack 01/31/18 13:25 Consult to Nephrology Routine Consulting Provider: Ilia Pimentel Does the patient have a Floral Arranger who follows them?: No Preferred Nephrology Supervisor Phosphatic Fertilizer:: Ilia Pimentel Reason for Consultation: worsening renal function. Notified:: Service Spoke with:: Solange Date Notified:: 01/31/18 Time Notified:: 13:48 Ordering Provider: CANDY 02/01/18 13:58 Consult to Palliative Care Routine Consulting Provider: Nicolle Conrad Reason for Consultation: Patient admitted for NSTEMI, hx of cardiac disease and multiple MD Notified:: Service Spoke with:: Huseyin Date Notified:: 02/01/18 Time Notified:: 14:00 Ordering Provider: OLEG 02/01/18 16:07 Consult to Infectious Diseases Routine Consulting Provider: Veronica Ro Reason for Consultation: Persistent fever, unknown source in pt admitted for NSTEMI Patient with long list of allergies Notified:: Service Spoke with:: maria dolores Date Notified:: 02/01/18 Time Notified:: 16:15 Ordering Provider: OLEG 02/02/18 06:48 Consult to Sodium Methylate Operator Stat Consulting Provider: Sina Courtney For STAT consult, spoke directly to:: Louie Reason for Consultation: respiratory failure Notified:: Service Spoke with:: Tyrone Date Notified:: 02/02/18 Time Notified:: 06:53 Ordering Provider: SHARDA 02/06/18 08:14 Consult to Hospitalist Routine Consulting Provider: Kenji Fang Reason for Consultation: Assume care in am 02/07/18 Notified:: Service Spoke with:: Hipolito Date Notified:: 02/06/18 Time Notified:: 08:18 Comments:: waiting on assignment - ML Ordering Provider: MADHAVI 02/18/18 08:37 HUB Only Consult Order Routine Consulting Provider: Sirena Pack 02/19/18 16:08 Consult to Rehab Medicine Routine Consulting Provider: Eliud Celaya Preferred Supervisor Phosphatic Fertilizer:: Clementina Lundberg Reason for Consultation: requested for rehab/Mack Fritz advised that pt may require peer to peer for approval process. Notified:: Service Spoke with:: MARIA DOLORES Date Notified:: 02/19/18 Time Notified:: 17:10 Ordering Provider: KANDACE 02/21/18 04:49 HUB Only Consult Order Routine Consulting Provider: Natasha Bauer 02/25/18 12:11 HUB Only Consult Order Stat Consulting Provider: [facility] 02/26/18 08:56 HUB Only Consult Order Stat Consulting Provider: [facility] 02/26/18 09:02 HUB Only Consult Order Stat Consulting Provider: [facility] HUB Only Consult Order Stat Consulting Provider: [facility] 02/26/18 09:04 HUB Only Consult Order Stat Consulting Provider: [facility],Agency 02/26/18 09:05 HUB Only Consult Order Stat Consulting Provider: [facility],Agency 02/27/18 09:25 HUB Only Consult Order Stat Consulting Provider: [facility] Brief History from admission: 79-year-old female with a history of diabetes, anxiety, depression, history of rectal cancer in remission, CAD status post PCI, recent admission on 01/28 for non-ST elevation MD discharged on 01/29.. Presents with acute onset of dull pressure-like nonradiating chest pain resolved with aspirin and sublingual nitroglycerin. She is currently chest pain-free. She has small cuts on both first toes, as well as abrasion on right elbow, however is unsure how she got these. She continues to report the chest pain is resolved. Patient says she does not believe she was given any additional medications upon discharge from the hospital most recently DS: Diagnosis Discharge Diagnosis (1) Acute myocardial infarction: Status: Acute DS: Summary Hospital Course: Acute myocardial infarction/Ischemic cardiomyopathy/Afib Cardiology was consulted. Status post PCI with LAD stent 02/03/[address] Peralta. Echo February 06, 2018 with EF of 30%. The pt was continued on ASA/ Plavix/Statin/Beta julio cesar. The pt will follow up with cardiology as an outpt, appointment is already set up. Acute kidney injury Nephrology was consulted. We continued to hold diuretics and RHETT inhibitors. The pt will follow up with her PCP. Cr currently 1.26, with GFR 40. Diabetes mellitus The pt was placed on a medium correction sliding scale along with Levemir 20 units daily, 15 units HS. The pt says at home she was on 40 units of insulin nightly. She will follow up with her PCP. She will continue a sliding scale. UTI ESBL + E coli. Infectious disease was consulted. The pt completed ertapenem and we then discontinued the midline catheter. Time Spent with Patient Total time spent providing and/or coordinating discharge services: Results Procedures completed during hospitalization: None Labs on day of discharge: Labs from last 24 hours 03/08/18 03/07/18 03/07/18 07:43 20:07 17:03 POC Glucose 114 H 156 H 113 H 03/07/18 11:53 POC Glucose 176 H Impressions ITS Impressions Abdomen/Bladder Ultrasound 02/02/18 00:00 CONCLUSION: 1. Increased renal echogenicity typical of chronic parenchymal changes. 2. No evidence of acute obstructive uropathy. 3. Small bilateral benign-appearing cysts. Abdomen/Pelvis CT 02/02/18 00:00 CONCLUSION: 1. No acute abnormalities are seen in the abdomen or pelvis. 2. Mildly atrophic left kidney with vascular calcifications. 3. Aortoiliac atherosclerosis. No aneurysm. 4. Cholelithiasis. 5. Bilateral small pleural effusions and mild to moderate basilar atelectasis. 6. Coronary artery calcification. 7. Nonspecific mass of the visualized left breast. Last mammogram in our system was 2012. Up-to-date bilateral mammography with a diagnostic left breast mammogram recommended. Chest X-Ray 02/06/18 06:00 CONCLUSION: Interval extubation. Stable aeration. Head MRI 02/10/18 10:53 CONCLUSION: 1. No acute findings. No recent infarct identified. Discharge Plan Discharge Disposition Patient Disposition: W/Home Health Service Discharge Condition Condition: Stable Discharge Order Discharge Orders: Discharge Order (Routine); Ordered 02/18/18 Ordered By: Parmjit Rivers Discharge Details Anticipated Discharge Date: 03/08/18 Physicians Team ED Provider: Philip Montalvo Primary Care Provider: Pavithra Carbone Attending Provider: Yolette Moore Other Providers: Sirena Pack ; Kerrie Macias ; Ilia Pimentel ; Nicolle Conrad ; Veronica Ro ; Sina Courtney ; Eliud Celaya ; [facility],[place] ; [facility] ; [facility] ; [facility] ; [facility] ; [facility], [facility], [place] Rxs /Orders / Referrals /Forms Prescriptions: New quetiapine 25 mg Tablet 25 mg PO HS 3 Days Qty: 0 RF: 0 metoprolol tartrate 25 mg Tablet 50 mg PO BID RF: 0 tramadol 50 mg Tablet 50 mg PO Q6H PRN (Reason: Pain) Qty: 12 RF: 0 insulin aspart U-100 [Novolog U-100 Insulin aspart] 100 unit/mL Solution See Label Instructions .ROUTE .COMPLEX RF: 0 alprazolam [Xanax] 0.5 mg Tablet 0.5 mg PO TID PRN (Reason: Anxiety) Qty: 9 RF: 0 insulin detemir U-100 [Levemir U-100 Insulin] 100 unit/mL Solution 26 unit subcut DAILY Qty: 50 RF: 0 insulin detemir U-100 [Levemir U-100 Insulin] 100 unit/mL Solution 16 unit subcut HS Qty: 50 RF: 0 Continue atorvastatin 40 mg Tablet 40 mg PO HS Qty: 30 RF: 0 clopidogrel [Plavix] 75 mg Tablet 75 mg PO DAILY Qty: 30 RF: 0 aspirin 81 mg Tablet,Delayed Release (Dr/Ec) 81 mg PO DAILY Qty: 30 RF: 0 Discontinued metoprolol succinate 25 mg Tablet Extended Release 24 Hr 25 mg PO DAILY Qty: 30 RF: 0 alprazolam 0.25 mg Tablet 0.5 mg PO Q8HR PRN (Reason: Anxiety) RF: 0 Referrals: Kerrie Macias MD [Physician] - See Instructions Ilia Pimentel MD [Physician] - See Instructions Gonzalez Peralta DO [Physician] - See Instructions (Follow up appt w/Dr. Fabian garcia for: March 11 @ 4:00. [facility] [address] [facility] [phone] Please bring your photo id, insurance card, medication prescription bottles, and hospital discharge paperwork.) Pavithra Carbone MD [Primary Care Provider] - See Instructions Discharge Instructions Patient Printed Instructions: Metoprolol (By mouth), Alprazolam (By mouth), Tramadol (By mouth), Quetiapine (By mouth), Insulin Detemir (By injection), Chest Pain (ED), Type 2 Diabetes in Adults (DC), Meal Planning with Diabetes Exchanges (DC) Post Discharge Care Plan Care Plan Goals: Your Health Problems: Goals to Promote Your Health: * To prevent worsening of your condition * To maintain your health at the optimal level Directions to Meet Your Goals: * Take your medications as prescribed * Follow your dietary instruction * Follow activity as directed * Keep your appointments as scheduled * Take your immunizations and boosters as scheduled * If your symptoms worsen call your PCP * If no PCP go to Urgent Care or Emergency Room Smoking is dangerous to your health. Avoid second hand smoke. You may reach the 24-hour crisis hotline for domestic abuse at . Status ED Status: Left Department Discharge Information Discharge Date/Time: 03/08/18 12:45
--- NOTE | 2018-03-09 07:38 | P.DCO ---
Diagnosis (1) Acute myocardial infarction: Status: Acute (2) Type 2 diabetes mellitus: Status: Chronic (3) Acute kidney injury: Status: Resolved (4) Frail elderly: Status: Acute Physical Therapy Order: Evaluate and treat and Strength and gait training Occupational Therapy Order: Evaluate and treat Home Health Nursing Order: Medical education and Signs/symptoms of disease process Case Management Consult Case Management Consult-Home Health: Yes I have seen patient Olimpia Arvizu on 03/09/18. My clinical findings support the need for the requested home health care services because:debility from recent hospitalization for acute PR, acute kidney injury, deconditioning. I certify that my clinical findings support that this patient is homebound because: _ (1) Acute myocardial infarction Qualifiers: Myocardial infarction type: Involved coronary artery: (2) Type 2 diabetes mellitus Qualifiers: Diabetes mellitus manager long term care insulin use: Diabetes mellitus complication status: Diabetes mellitus complication detail: Diabetic retinopathy severity : Proliferative retinopathy type: Diabetes mellitus macular edema: Laterality: Chronic kidney disease stage:
== END 2018-03-08 12:45 | disposition home health service (06) ==
LOC: NEPE 02:00 → NEDA 03:51 → HCIS 13:38 → N03 02-02 07:00 → HCIS 02-08 18:07 → N04 02-15 18:57
PROVIDERS: ADMIT Hospitalist; ATTEND Hospitalist
DX: I48.91 Unspecified atrial fibrillation; K59.00 Constipation, unspecified; R19.7 Diarrhea, unspecified; F32.9 Major depressive disorder, single episode, unspecified; Z86.711 Personal history of pulmonary embolism; Z88.2 Allergy status to sulfonamides; N17.9 Acute kidney failure, unspecified; S90.411A Abrasion, right great toe, initial encounter; R57.0 Cardiogenic shock; R32 Unspecified urinary incontinence; I25.10 Atherosclerotic heart disease of native coronary artery without angina pectoris; Z90.49 Acquired absence of other specified parts of digestive tract; I21.09 ST elevation (STEMI) myocardial infarction involving other coronary artery of anterior wall; B96.20 Unspecified Escherichia coli [E. coli] as the cause of diseases classified elsewhere; Z79.899 Other long term (current) drug therapy; Z88.1 Allergy status to other antibiotic agents; Z79.02 Long term (current) use of antithrombotics/antiplatelets; R13.10 Dysphagia, unspecified; Z79.82 Long term (current) use of aspirin; Z79.4 Long term (current) use of insulin; I47.2 Ventricular tachycardia; F05 Delirium due to known physiological condition; I25.2 Old myocardial infarction; T82.855A Stenosis of coronary artery stent, initial encounter; Z85.048 Personal history of other malignant neoplasm of rectum, rectosigmoid junction, and anus; F41.9 Anxiety disorder, unspecified; Z82.49 Family history of ischemic heart disease and other diseases of the circulatory system; S90.412A Abrasion, left great toe, initial encounter; M25.569 Pain in unspecified knee; Z87.891 Personal history of nicotine dependence; I13.0 Hypertensive heart and chronic kidney disease with heart failure and stage 1 through stage 4 chronic kidney disease, or unspecified chronic kidney disease; E11.65 Type 2 diabetes mellitus with hyperglycemia; E11.22 Type 2 diabetes mellitus with diabetic chronic kidney disease; J98.11 Atelectasis; Y83.1 Surgical operation with implant of artificial internal device as the cause of abnormal reaction of the patient, or of later complication, without mention of misadventure at the time of the procedure; Z16.12 Extended spectrum beta lactamase (ESBL) resistance; J96.01 Acute respiratory failure with hypoxia; Z90.710 Acquired absence of both cervix and uterus; S50.311A Abrasion of right elbow, initial encounter; N18.3 Chronic kidney disease, stage 3 (moderate); Z91.14 Patient's other noncompliance with medication regimen; G89.29 Other chronic pain; I25.5 Ischemic cardiomyopathy; E78.5 Hyperlipidemia, unspecified; Z78.1 Physical restraint status; I21.4 Non-ST elevation (NSTEMI) myocardial infarction; I50.21 Acute systolic (congestive) heart failure; E11.3519 Type 2 diabetes mellitus with proliferative diabetic retinopathy with macular edema, unspecified eye; R15.9 Full incontinence of feces; N39.0 Urinary tract infection, site not specified; F03.90 Unspecified dementia, unspecified severity, without behavioral disturbance, psychotic disturbance, mood disturbance, and anxiety